=== PATIENT | male | born 1955 | race Caucasian/White ===

== ENCOUNTER 2017-03-22 16:21 | Emergency (ER) | payer SELFPAY ==
[~2017-03-22] VITALS: Ht 175.3 cm; Wt 136.1 kg
[~2017-03-22 16:21] MED LIST: AC500T PO; AML5T PO; ASP325T; ASP325T PO; CETI10TA20 PO; CYCL10TA9 PO; DICL75TA2 PO; DOCU-161 PO; FLUT1AER IH; GABA-488 PO; HYDR-3583 PO; LISI1TAB6 PO; LRT10T; LSRT50T; LVST20T PO; METF-380 PO; MILN25TA PO; MTF500T; OMEG-12 PO; OMEP40CA36 PO; OXYC-471 PO; PRAV80TA PO; PRAVASTATIN; RT-ALBUINH IH; SENN1TAB76 PO; SUCR1TAB36 PO; SULF1TAB38 PO; TIOT18CA2 IH; TRAM50TA2 PO; TRAZ150T42 PO; [UNRECOGNIZED DRUG - OTHER]; aleve; diclofenac
--- NOTE | 2017-03-22 17:34 | ED Abdominal Pain ---
General Chief Complaint: Abdominal/GI Problems Stated Complaint: STOMACH ISSUES Nursing Triage Note: AMB TO ROOM REPORTS HAS CHRONIC STOMACH ISSUES HAS ACID REFLUX. TODAY ALSO FEELING LIKE HE NEEDS TO HAVE BM DOES HAVE CONSTIPATION ISSUES. VOMITED X 1 TODAY. ALSO REPORTS NOT BEEN TAKING B/P MEDS LIKE HE IS SUPPOSE TO. Sepsis Screen: No Definite Risk Source of Information: Patient, Family Exam Limitations: No Limitations (ALAYNA LYMAN MD) History of Present Illness Time Seen By Provider: 17:29 Initial Comments This 61-year-old white male presents with a history of diffuse sharp abdominal pain that he has had for years. The patient has a history of diverticulosis on colonoscopy. Furthermore he has a history of peptic ulcer disease. The patient denies any fever, chills, localized severe abdominal pain, or remarkable radiation of the sharp abdominal pain which she describes primarily over the left side of the abdomen. The patient relates that he has had associated obstipation. He denies black, tarry, or bloody stools. The patient has had no hematemesis. The patient did have an episode of emesis this morning which is unusual for him. This precipitated his presentation to the emergency department at his 's insistence. Past medical history in addition to the acid disease and diverticulosis includes cholecystitis for which the patient underwent a cholecystectomy. (ALAYNA LYMAN MD) Allergies and Home Medications Allergies Coded Allergies: No Known Drug Allergies (Verified , 04/16/08) Home Medications Acetaminophen 500 Mg Tablet, 500-1,000 MG PO NEEDED, (Reported) FOR PAIN Albuterol Sulfate 18 Gm Hfa.aer.ad, 1-2 PUFF IH QID, (Reported) Amlodipine Besylate 5 Mg Tablet, 10 MG PO DAILY, (Reported) Aspirin 325 Mg Tab, 325 MG PO DAILY, (Reported) Cetirizine HCl 10 Mg Tablet, 10 MG PO DAILY, (Reported) Cyclobenzaprine Hcl 10 Mg Tablet, 1 EACH PO Q6H PRN, (Reported) FOR MUSCLE RELAX Diclofenac Sodium 75 Mg Tablet.dr, 75 MG PO BID, (Reported) Docusate Sodium 100 Mg Capsule, 100 MG PO BID, (Reported) Fluticasone/Vilanterol 1 Each Blst.w.dev, 1 EACH IH DAILY, (Reported) Hctz/Lisinopril 1 Each Tablet, 1 EACH PO DAILY, (Reported) Metformin Hcl 1,000 Mg Tablet, 1 EACH PO BID WITH MEALS, (Reported) Milnacipran HCl 25 Mg Tablet, 25 MG PO BID, (Reported) [place]-3/Dha/Epa/Fish Oil 1 Each Capsule.dr, 2 EACH PO DAILY, (Reported) Omeprazole 40 Mg Capsule.dr, 40 MG PO BID, (Reported) Pravastatin Sodium 80 Mg Tablet, 80 MG PO HS, (Reported) Sucralfate 1 Gm Tablet, 1 GM PO QID, #120 [facility]: [facility] 04/23[facility]16 1426 Tiotropium [place] 1 Inh Aerp, 2 INH IH DAILY, (Reported) Trazodone Hcl 150 Mg Tablet, 150 MG PO HS, (Reported) [Pravastatin] , (Reported) Review of Systems Constitutional: No chills, No fever EENTM: No Blurred Vision, No Ear Pain Respiratory: Denies Cough Cardiovascular: Denies Chest Pain Gastrointestinal: Denies Abdomen Distended, Abdominal Pain, Denies Blood Streaked Stools, Constipated, Denies Diarrhea, Denies Difficulty Swallowing, Nausea, Denies Rectal Bleeding, Vomiting Genitourinary: Denies Burning, Denies Discharge, Denies Frequency Musculoskeletal: No back pain, No joint swelling Skin: No change in color, No rash Psychiatric/Neurological: No Symptoms Reported Endocrine: No Symptoms Reported Hematologic/Lymphatic: No Symptoms Reported (ALAYNA LYMAN MD) Past Whubhpm-Liaoiq-Pvubel Hx Patient Social History Alcohol Use: Denies Use Recreational Drug Use: No Smoking Status: Never a Smoker Former Smoker/When Quit: Jan 09, 2000 Recent Foreign Travel: No Contact w/Someone Who Travel: No Recent Infectious Disease Expo: No Recent Hopitalizations: No (ALAYNA LYMAN MD) Immunizations Up To Date Date of Pneumonia Vaccine: March 11, 2016 (ALAYNA LYMAN MD) Seasonal Allergies Seasonal Allergies: Yes (ALAYNA LYMAN MD) Surgeries HX Surgeries: Yes (HERNIA) Surgeries: Abdominal, Gallbladder, Tonsillectomy (ALAYNA LYMAN MD) Respiratory Hx Respiratory Disorders: Yes ("TROUBLE WITH BREATHING"--NO DIAGNOSIS) (ALAYNA LYMAN MD) Cardiovascular Hx Cardiac Disorders: Yes Cardiac Disorders: High Cholesterol, Hypertension (ALAYNA LYMAN MD) Neurological Hx Neurological Disorders: No (ALAYNA LYMAN MD) Reproductive System Hx Reproductive Disorders: No (ALAYNA LYMAN MD) Genitourinary Hx Genitourinary Disorders: No (ALAYNA LYMAN MD) Gastrointestinal Hx Gastrointestinal Disorders: Yes Gastrointestinal Disorders: Abdominal Hernia, Irritable Bowel (ALAYNA LYMAN MD) Musculoskeletal Hx Musculoskeletal Disorders: Yes (RIGHT SCIATICA--WALKS WITH CANE) Musculoskeletal Disorders: Degenerate Disk Disease, Arthritis, Chronic Back Pain (ALAYNA LYMAN MD) Endocrine Hx Endocrine Disorders: Yes (OBESITY) Endocrine Disorders: Diabetes, Non-Insulin dep (ALAYNA LYMAN MD) HEENT HX ENT Disorders: No (ALAYNA LYMAN MD) Cancer Hx Cancer: No (ALAYNA LYMAN MD) Psychosocial Hx Psychiatric Problems: No (ALAYNA LYMAN MD) Integumentary HX Skin/Integumentary Disorder: No (ALAYNA LYMAN MD) Blood Transfusions Hx Blood Disorders: No (ALAYNA LYMAN MD) Reviewed Nursing Assessment Reviewed/Agree w Nursing PMH: Yes (ALAYNA LYMAN MD) Family Medical History Significant Family History: No Pertinent Family Hx (ALAYNA LYMAN MD) Physical Exam Vital Signs VS - Last 72 Hours, by Label 03/22/17 16:33 Temp 99.2 Pulse 83 Resp 18 B/P (MAP) 171/114 Pulse Ox 96 O2 Delivery Room Air (DAO,SHARIFA K DO) Vital Signs Capillary Refill : Less Than 3 Seconds (ALAYNA LYMAN MD) General Appearance: WD/WN, no apparent distress HEENT: normal ENT inspection Neck: normal inspection Respiratory: lungs clear, normal breath sounds, no respiratory distress Cardiovascular: normal peripheral pulses, regular rate, rhythm, no murmur Gastrointestinal: normal bowel sounds, non tender, soft, no organomegaly, no pulsatile mass Extremities: normal range of motion, non-tender, normal inspection Back: normal inspection Neurologic/Psychiatric: no motor/sensory deficits, alert, normal mood/affect, oriented x 3 Skin: normal color, warm/dry (ALAYNA LYMAN MD) Progress/Results/Core Measures Results/Orders Lab Results Laboratory Tests Test 03/22/17 17:35 03/22/17 17:48 Range/Units White Blood Count 6.8 4.3-11.0 10^3/uL Red Blood Count 5.10 4.35-5.85 10^6/uL Hemoglobin 14.2 13.3-17.7 G/DL Hematocrit 44 40-54 % Mean Corpuscular Volume 86 80-99 FL Mean Corpuscular Hemoglobin 28 25-34 PG Mean Corpuscular Hemoglobin Concent 33 32-36 G/DL Red Cell Distribution Width 12.3 10.0-14.5 % Platelet Count 321 130-400 10^3/uL Mean Platelet Volume 8.4 7.4-10.4 FL Neutrophils (%) (Auto) 55 42-75 % Lymphocytes (%) (Auto) 30 12-44 % Monocytes (%) (Auto) 9 0-12 % Eosinophils (%) (Auto) 6 0-10 % Basophils (%) (Auto) 1 0-10 % Neutrophils # (Auto) 3.8 1.8-7.8 X 10^3 Lymphocytes # (Auto) 2.1 1.0-4.0 X 10^3 Monocytes # (Auto) 0.6 0.0-1.0 X 10^3 Eosinophils # (Auto) 0.4 H 0.0-0.3 10^3/uL Basophils # (Auto) 0.0 0.0-0.1 10^3/uL Sodium Level 140 135-145 MMOL/L Potassium Level 3.8 3.6-5.0 MMOL/L Chloride Level 100 98-107 MMOL/L Carbon Dioxide Level 28 21-32 MMOL/L Anion Gap 12 5-14 MMOL/L Blood Urea Nitrogen 10 7-18 MG/DL Creatinine 0.88 0.60-1.30 MG/DL Estimat Glomerular Filtration Rate > 60 BUN/Creatinine Ratio 11 Glucose Level 135 H 70-105 MG/DL Calcium Level 9.6 8.5-10.1 MG/DL Total Bilirubin 0.4 0.1-1.0 MG/DL Aspartate Amino Transf (AST/SGOT) 31 5-34 U/L Alanine Aminotransferase (ALT/SGPT) 26 0-55 U/L Alkaline Phosphatase 67 40-136 U/L Total Protein 7.1 6.4-8.2 G/DL Albumin 4.1 3.2-4.5 G/DL Lipase 19 8-78 U/L Urine Color YELLOW Urine Clarity CLEAR Urine pH 7 5-9 Urine Specific [place] 1.010 L 1.016-1.022 Urine Protein NEGATIVE NEGATIVE Urine Glucose (UA) NEGATIVE NEGATIVE Urine Ketones NEGATIVE NEGATIVE Urine Nitrite NEGATIVE NEGATIVE Urine Bilirubin NEGATIVE NEGATIVE Urine Urobilinogen NORMAL NORMAL MG/DL Urine Leukocyte Esterase NEGATIVE NEGATIVE Urine RBC (Auto) NEGATIVE NEGATIVE Urine RBC NONE /HPF Urine WBC NONE /HPF Urine Squamous Epithelial Cells NONE /HPF Urine Crystals NONE /LPF Urine Bacteria NEGATIVE /HPF Urine Casts NONE /LPF Urine Mucus NEGATIVE /LPF Urine Culture Indicated NO (SHARIFA MOSER DO) Medications Given in ED Current Medications Medications Dose Ordered Sig/[place] Route Start Time Stop Time Status Last Admin Dose Admin Iohexol 100 ml ONCE ONCE IV 03/22/17 18:15 03/22/17 18:16 UNV 03/22/17 18:27 100 ML Sodium Chloride 100 ml ONCE ONCE IV 03/22/17 18:15 03/22/17 18:16 UNV 03/22/17 18:28 80 ML (SHARIFA MOSER DO) Vital Signs/I&O Vital Sign - Last 12Hours 03/22/17 16:33 Temp 99.2 Pulse 83 Resp 18 B/P (MAP) 171/114 Pulse Ox 96 O2 Delivery Room Air (SHARIFA MOSER DO) Blood Pressure Mean: 133 Progress Note : Time: 17:58 Progress Note My partner, Dr. Moser, was kind enough to accept the patient for further evaluation and care in the emergency department. We discussed the patient's presentation and his treatment plans. (ALAYNA LYMAN MD) Progress Note : Progress Note 9707--ASSUMED CARE FROM DR. LYMAN . ALL STUDIES PENDING. PT SITTING QUIETLY, DOES NOT APPEAR TO BE IN ANY DISCOMFORT OR DISTRESS. DISCUSSED TEST RESULTS WITH PT, AND IMPORTANCE OF FOLLOW UP WITH BOTH DR. LAWRENCE AND [facility] [place] OF [place] FINDINGS. 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 Referrals: MILAN MIRZA DO (PCP) Primary Care Physician NIKI AKINS APRN (Family) Primary Care Physician ANILA LAWRENCE DO Patient Instructions: Abdominal Wall Hernias, Acute Abdomen (Belly Pain), Adult (DC), Diverticulitis (DC), Irritable Bowel Syndrome (DC) Add. Discharge Instructions: CLEAR LIQUIDS--WATER, BROTH, JELLO, GATORADE--NO FOOD UNTIL YOU ARE RECHECKED AND CLEARED BY . FOLLOW UP WITH DR. LAWRENCE AND [facility] [place] 2-3 DAYS FOR FURTHER CARE RETURN TO ER IF WORSE All discharge instructions reviewed with patient and/or family. Voiced understanding. Scripts Ondansetron (Zofran Odt) 4 Mg Tab.rapdis 4 MG PO Q4H for Nausea/Vomiting, #10 TAB Prov: SHARIFA MOSER DO 03/22/17 Tramadol HCl (Ultram) 50 Mg Tablet 50 MG PO Q4H, #20 TAB Prov: SHARIFA MOSER DO 03/22/17 Lactobacillus Acidophilus (Acidophilus) 1 Each Capsule 2 EACH PO QID, #80 CAP Prov: SHARIFA MOSER DO 03/22/17 Metronidazole (Flagyl) 500 Mg Tablet 500 MG PO QID for FOR INFECTION, #40 TAB Prov: SHARIFA MOSER DO 03/22/17 Ciprofloxacin HCl (Cipro) 500 Mg Tablet 500 MG PO BID, #20 TAB Prov: SHARIFA MOSER DO 03/22/17 ALAYNA LYMAN MD March 22, 2017 17:34 SHARIFA MOSER DO March 22, 2017 18:42
[2017-03-22 17:42] LABS: BASOPHILS % (AUTO) 1 % (0-10); EOSINOPHILS # (AUTO) 0.4 10^3/uL (0.0-0.3); EOSINOPHILS % (AUTO) 6 % (0-10); LYMPHOCYTES # (AUTO) 2.1 X 10^3 (1.0-4.0); LYMPHOCYTES % (AUTO) 30 % (12-44); MEAN CORPUSCULAR HEMOGLOBIN 28 PG (25-34); MEAN CORPUSCULAR HGB CONC 33 G/DL (32-36); MEAN CORPUSCULAR VOLUME 86 FL (80-99); MEAN PLATELET VOLUME 8.4 FL (7.4-10.4); MONOCYTES # (AUTO) 0.6 X 10^3 (0.0-1.0); MONOCYTES % (AUTO) 9 % (0-12); NEUTROPHILS # (AUTO) 3.8 X 10^3 (1.8-7.8); NEUTROPHILS % (AUTO) 55 % (42-75); PLATELET COUNT 321 10^3/uL (130-400); RED CELL DISTRIBUTION WIDTH 12.3 % (10.0-14.5); WHITE BLOOD COUNT 6.8 10^3/uL (4.3-11.0)
[2017-03-22] MEDS ORDERED: NS IV 1000 ML 1,000 ML IV SCH (17:45)
[2017-03-22 17:58] LABS: BILIRUBIN,URINE NEGATIVE (NEGATIVE); KETONES,URINE NEGATIVE (NEGATIVE); LEUKOCYTE ESTERASE ,URINE NEGATIVE (NEGATIVE); NITRITE,URINE NEGATIVE (NEGATIVE); PH,URINE 7 (5-9); PROTEIN,URINE NEGATIVE (NEGATIVE); UROBILINOGEN,URINE NORMAL (NORMAL)
[2017-03-22 18:02] LABS: ALANINE AMINOTRANSFERASE 26 U/L (0-55); ALBUMIN 4.1 G/DL (3.2-4.5); ANION GAP 12 MMOL/L (5-14); ASPARTATE AMINO TRANSFERASE 31 U/L (5-34); BILIRUBIN,TOTAL 0.4 MG/DL (0.1-1.0); BLOOD UREA NITROGEN 10 MG/DL (7-18); BUN/CREATININE RATIO 11; CALCIUM 9.6 MG/DL (8.5-10.1); CARBON DIOXIDE 28 MMOL/L (21-32); CHLORIDE 100 MMOL/L (98-107); CREATININE SERUM 0.88 MG/DL (0.60-1.30); GFR ESTIMATED > 60; GLUCOSE 135 MG/DL (70-105); LIPASE 19 U/L (8-78); POTASSIUM 3.8 MMOL/L (3.6-5.0); SODIUM 140 MMOL/L (135-145); TOTAL PROTEIN 7.1 G/DL (6.4-8.2)
[2017-03-22] MEDS ORDERED: IOHEXOL 350 MG/ML 100 ML (OMNIPAQUE 350) VIAL IV ONE (18:15)
[2017-03-22] MEDS ORDERED: NS 100 ML (IVPB) BAG IV ONE (18:15)
--- NOTE | 2017-03-22 19:32 | Diagnostic Imaging Report ---
CLINICAL INDICATION: Patient with mid abdominal pain with on and off episodes of diarrhea times several years. EXAM: CT scan of the abdomen and pelvis performed with 100 cc of Omnipaque 350 IV contrast. Portal venous and delayed phase were obtained. Coronal reformatted images are created. COMPARISON: CT scan of the abdomen and pelvis performed with IV contrast dated 04/17/2008. FINDINGS: Visualized lung bases are clear. There are degenerative spurs and facet arthropathy of the visualized lower lumbar spine and lumbar spine. The gallbladder has been surgically resected in the interim. There is a 16 mm circumscribed enhancing structure in the left renal hilum which has increased in size compared to the prior study which is remeasured at 13 mm. The density of this structure is not significantly different than the adjacent aorta. This is concerning for a aneurysm of the splenic artery. There are other smaller nodular areas in the region which may represent splenules or lymph nodes. Otherwise, the liver, spleen, adrenal glands and both kidneys are unremarkable. There is no hydronephrosis or urinary tract stone. There is a 15 mm rounded enhancing structure involving the tail of the pancreas which was not as well visualized on the prior study. There is bowel wall thickening involving the sigmoid colon with multiple diverticula seen. There is prominence of the vascular structures in the region with only minimal subtle fat stranding. These findings may be related to colitis. Colon cancer may also be considered. Diverticulitis also cannot be completely excluded. Remainder of the colon is unremarkable. There is a development of a periumbilical hernia which is roughly 8.7 cm in greatest width with multiple loops of small bowel extending into the region. There is no evidence of associated structure nor fat stranding. Appendix is unremarkable. There is no intra-abdominal free air or free fluid. There is no significant lymphadenopathy. The extra-abdominal and extrapelvic soft tissue structures are otherwise unremarkable. The bladder is fluid distended with no gross abnormality as visualized. Prostate gland shows no significant abnormality. Phleboliths are seen in the pelvis. IMPRESSION: 1.: There is a short segment of sigmoid colon bowel wall thickening with prominence of the vasculature and mild fat stranding. This may represent colitis versus colon cancer. Diverticulitis also can't be completely excluded. There is no evidence of abscess or free air. 2: There is a broad-based umbilical hernia with multiple loops of small bowel within it. There is no associated intestinal obstruction, fluid or fat stranding. 3: There is concern for interval development of a 16 mm aneurysm in the left splenic hilum. 4: There is a 15 mm rounded enhancing structure near the tail of the pancreas which may represent a pancreatic neoplasm. Dedicated MRI of the pancreas with and without IV contrast in 6 months is suggested to better evaluate for stability. Dictated by: Dictated on workstation # [id number]
[2017-03-22] MEDS ORDERED: CIPR-225 PO (19:49)
[2017-03-22] MEDS ORDERED: LACT1CAP8 PO (19:49)
[2017-03-22] MEDS ORDERED: TRAM-42 PO (19:49)
[2017-03-22] MEDS ORDERED: METR500T PO (19:49)
[2017-03-22] MEDS ORDERED: RX-TRAMADOL 50 MG (ULTRAM) TAB PPK#4 PO STA (19:49)
[2017-03-22] MEDS ORDERED: ONDA4TAB8 PO (19:49)
[2017-03-22] MEDS ORDERED: RX-TRAMADOL 50 MG (ULTRAM) TAB PPK#4 PO ONE (19:54)
[2017-03-22] MEDS ORDERED: metroNIDAZOLE 500 MG (FLAGYL) TAB ONE (19:54)
[2017-03-22] MEDS ORDERED: CIPROFLOXACIN 500 MG (CIPRO) TABLET PO ONE (19:54)
[2017-03-22 19:59] VITALS: BP 146/96
[2017-03-22] MEDS ORDERED: metroNIDAZOLE 500 MG (FLAGYL) TAB PO ONE (20:00)
[2017-03-22] MEDS ORDERED: CIPROFLOXACIN 500 MG (CIPRO) TABLET PO SCH (20:00)
== END 2017-03-22 19:59 | disposition home or self-care (01) ==
LOC: EDUNIT# 16:21 → ER 16:25
DX: K63.89 Other specified diseases of intestine (principal); I72.8 Aneurysm of other specified arteries; K86.9 Disease of pancreas, unspecified; K42.9 Umbilical hernia without obstruction or gangrene; K57.30 Diverticulosis of large intestine without perforation or abscess without bleeding; I10 Essential (primary) hypertension; E11.9 Type 2 diabetes mellitus without complications; E66.9 Obesity, unspecified; Z79.82 Long term (current) use of aspirin; Z79.84 Long term (current) use of oral hypoglycemic drugs; Z79.899 Other long term (current) drug therapy; Z90.49 Acquired absence of other specified parts of digestive tract; Z87.11 Personal history of peptic ulcer disease
CPT/HCPCS: 36415; 74177; 80053; 81000; 83690; 85025; 96360; 96361

== ENCOUNTER → 2017-04-10 | Emergency (ER) | payer SELFPAY ==
[~2017-04-10] VITALS: Ht 175.3 cm; Wt 133.8 kg
[~2017-04-10] MED LIST changes: +CIPR-225 PO; +LACT1CAP8 PO; +METR500T PO; +NAPR500T3 PO; +ONDA4TAB8 PO; +TRAM-42 PO
--- NOTE | 2017-04-10 22:15 | ED Lower Extremity ---
General Chief Complaint: Trauma-Non Activation Stated Complaint: FALL INJURY TO RIGHT LEG Nursing Triage Note: pt ambulated to ed with cane. pt states he fell over his guitar case and fell onto both knees approx. 30 min ago. pt is concerned about it right knee/leg. pt states he did not hit his head. no loc. Nursing Sepsis Screen: No Definite Risk Source: patient History of Present Illness Time seen by provider: 21:55 Initial Comments PT ARRIVES VIA POV FROM HOME C/O INJURY TO LEFT LOWER LEG AND GREAT TOE STATES HE TRIPPED OVER A GUITAR CASE AND FELL FORWARD, LANDING ON HIS KNEES. WAS NOT WEARING SHOES AT THE TIME. OCCURRED AROUND 2029 TONIGHT NO PARESTHESIAS OR MOTOR DEFICITS NO OTHER INJURIES NO PRIOR INJURY TO THIS LEG, BUT HAS CHRONIC RIGHT LEG SCIATICA PAIN FROM CHRONIC LOWER BACK PAIN AND DISC PROBLEMS AT L4-L5 Location Injury Occurred: home PCP: CARMEN GANN Allergies and Home Medications Allergies Coded Allergies: No Known Drug Allergies (Verified , 04/16/08) Home Medications Acetaminophen 500 Mg Tablet, 500-1,000 MG PO NEEDED, (Reported) FOR PAIN Albuterol Sulfate 18 Gm Hfa.aer.ad, 1-2 PUFF IH QID, (Reported) Amlodipine Besylate 5 Mg Tablet, 10 MG PO DAILY, (Reported) Aspirin 325 Mg Tab, 325 MG PO DAILY, (Reported) Cetirizine HCl 10 Mg Tablet, 10 MG PO DAILY, (Reported) Ciprofloxacin HCl 500 Mg Tablet, 500 MG PO BID, #20 Prescribed by: SHARIFA DC on 03/22/171948 Cyclobenzaprine Hcl 10 Mg Tablet, 1 EACH PO Q6H PRN, (Reported) FOR MUSCLE RELAX Diclofenac Sodium 75 Mg Tablet.dr, 75 MG PO BID, (Reported) Docusate Sodium 100 Mg Capsule, 100 MG PO BID, (Reported) Fluticasone/Vilanterol 1 Each Blst.w.dev, 1 EACH IH DAILY, (Reported) Hctz/Lisinopril 1 Each Tablet, 1 EACH PO DAILY, (Reported) Lactobacillus Acidophilus 1 Each Capsule, 2 EACH PO QID, #80 Prescribed by: SHARIFA DC on 03/22/171948 Metformin Hcl 1,000 Mg Tablet, 1 EACH PO BID WITH MEALS, (Reported) Metronidazole 500 Mg Tablet, 500 MG PO QID, #40 Prescribed by: SHARIFA DC on 03/22/171948 Milnacipran HCl 25 Mg Tablet, 25 MG PO BID, (Reported) Naproxen 500 Mg Tablet, 500 MG PO BID, #20 Prescribed by: SHARIFA DC on 04/10/17 2241 [place]-3/Dha/Epa/Fish Oil 1 Each Capsule.dr, 2 EACH PO DAILY, (Reported) Omeprazole 40 Mg Capsule.dr, 40 MG PO BID, (Reported) Ondansetron 4 Mg Tab.rapdis, 4 MG PO Q4H, #10 Prescribed by: SHARIFA DC on 03/22/171948 Pravastatin Sodium 80 Mg Tablet, 80 MG PO HS, (Reported) Sucralfate 1 Gm Tablet, 1 GM PO QID, #120 Prescribed by: CLINT [facility] on 04/23/16 142 Tiotropium [place] 1 Inh Aerp, 2 INH IH DAILY, (Reported) Tramadol HCl 50 Mg Tablet, 50 MG PO Q4H, #20 Prescribed by: SHARIFA DC on 03/22/171948 Tramadol HCl 50 Mg Tablet, 50 MG PO Q4H, #20 Prescribed by: SHARIFA DC on 04/10/17 2241 Trazodone Hcl 150 Mg Tablet, 150 MG PO HS, (Reported) [Pravastatin] , (Reported) Constitutional: no symptoms reported Musculoskeletal: see HPI Skin: other (BRUISING) Psychiatric/Neurological: No Symptoms Reported Past Xwmbnbc-Ltlphe-Gxfbor Hx Patient Social History Alcohol Use: Occasionally Uses Recreational Drug Use: No Smoking Status: Former Smoker Former Smoker/When Quit: Jan 09, 2000 2nd Hand Smoke Exposure: No Recent Foreign Travel: No Contact w/Someone Who Travel: No Recent Infectious Disease Expo: No Recent Hopitalizations: No Immunizations Up To Date Date of Pneumonia Vaccine: March 11, 2016 Seasonal Allergies Seasonal Allergies: No Surgeries HX Surgeries: Yes (HERNIA) Surgeries: Abdominal, Gallbladder, Tonsillectomy Respiratory Hx Respiratory Disorders: Yes ("TROUBLE WITH BREATHING"--NO DIAGNOSIS) Cardiovascular Hx Cardiac Disorders: Yes Cardiac Disorders: High Cholesterol, Hypertension Neurological Hx Neurological Disorders: No Reproductive System Hx Reproductive Disorders: No Genitourinary Hx Genitourinary Disorders: No Gastrointestinal Hx Gastrointestinal Disorders: Yes Gastrointestinal Disorders: Abdominal Hernia, Irritable Bowel Musculoskeletal Hx Musculoskeletal Disorders: Yes (RIGHT SCIATICA--WALKS WITH CANE) Musculoskeletal Disorders: Degenerate Disk Disease, Arthritis, Chronic Back Pain Endocrine Hx Endocrine Disorders: Yes (OBESITY) Endocrine Disorders: Diabetes, Non-Insulin dep HEENT HX ENT Disorders: No Cancer Hx Cancer: No Psychosocial Hx Psychiatric Problems: No Integumentary HX Skin/Integumentary Disorder: No Blood Transfusions Hx Blood Disorders: No Physical Exam Vital Signs Vital Sign - Last 12Hours Capillary Refill : Less Than 3 Seconds General Appearance: WD/WN, no apparent distress, obese Hips: bilateral hip normal inspection Legs: right leg other (LEFT LOWER LEG WITH LARGE BRUISE AND TENDERNESS) Knees: bilateral knee normal inspection Ankles: bilateral ankle normal inspection Feet: right foot other (TENDERNESS, SLIGHT SWELLING AND BRUISING TO RIGHT GREAT TOE) Neurologic/Tendon: normal sensation, normal motor functions, normal tendon functions 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, no motor/sensory deficits, alert, normal mood/affect, oriented x 3 Skin: normal color, warm/dry, ecchymosis Splinting and Joint Reduction : Splints: Post Op Shoe Progress/Results/Core Measures Results/Orders My Orders Orders - DAOSHARIFA K DO Tibia/Fibula, Right, 2 Views (04/10/17 22:02) Foot, Right, 3 View (04/10/17 22:02) Post-Op Shoe (04/10/17 22:38) Rx-Naproxen (Rx-Naprosyn) (04/10/17 22:38) Rx-Tramadol Hcl (Rx-Ultram) (04/10/17 22:38) Vital Signs/I&O Vital Sign - Last 12Hours 04/10/17 04/10/17 21:17 21:17 Temp 98.1 98.1 Pulse 109 109 Resp 20 20 B/P (MAP) 125/86 (99) 125/86 Pulse Ox 94 94 O2 Delivery Room Air Room Air Blood Pressure Mean: 99 Diagnostic Imaging Comments XRAYS RIGHT TIB-FIB--NO ACUTE PROCESS XRAYS RIGHT FOOT--NO ACUTE PROCESS PENDING RADIOLOGIST REVIEW Reviewed: Reviewed by Me Departure Impression Impression: Primary Impression: Status post fall Additional Impressions: Contusion of right lower leg, initial encounter Sprain of right great toe Disposition: 01 HOME, SELF-CARE Condition: Stable Departure-Patient Inst. Referrals: MILAN MIRZA DO (PCP) Primary Care Physician NIKI AKINS APRN (Family) Primary Care Physician Patient Instructions: Contusion (DC), Preventing Falls in the Older Adult, Sprain (DC) Add. Discharge Instructions: ICE TO SORE AREAS AT 20 MINUTE INTERVALS WEAR POST OP SHOE NEEDED FOR COMFORT ELEVATE LEG MUCH POSSIBLE FOLLOW UP WITH [facility] IN 1 WEEK IF NO BETTER All discharge instructions reviewed with patient and/or family. Voiced understanding. Scripts Tramadol HCl (Ultram) 50 Mg Tablet 50 MG PO Q4H, #20 TAB Prov: SHARIFA DC DO 04/10/17 Naproxen (Naproxen) 500 Mg Tablet 500 MG PO BID, #20 TAB Prov: SHARIFA DC DO 04/10/17 Images Extremities-Lower 1 - Moderate, Contusion, Ecchymosis, Swelling, Tenderness 2 - Moderate, Contusion, Ecchymosis, Swelling, Tenderness SHARIFA DC DO Apr 10, 2017 22:15
[2017-04-10] MEDS: RX-TRAMADOL 50 MG (ULTRAM) TAB PPK#4 PO STA (22:52)
[2017-04-10] MEDS: RX-NAPROXEN (NAPROSYN) 250 MG TAB PPK#4 PO STA (22:52)
[2017-04-10 23:00] VITALS: BP 118/89
--- NOTE | 2017-04-11 07:20 | Diagnostic Imaging Report ---
Two views of the right tibia and fibula. INDICATION: Fall. FINDINGS: There is no fracture, dislocation or radiopaque foreign body. The proximal and distal joints appear grossly unremarkable. There is soft tissue swelling in the proximal aspect of the calf region anteriorly IMPRESSION: No fracture seen. Dictated by: Dictated on workstation # [id number]
--- NOTE | 2017-04-11 07:21 | Diagnostic Imaging Report ---
Three views of the right foot. INDICATION: Fall. FINDINGS: There is mild hallux valgus. No fracture or dislocation seen. No radiopaque foreign body. Calcaneal spurs are noted. IMPRESSION: No acute process. Dictated by: Dictated on workstation # [id number]
== END | disposition home or self-care (01) ==
LOC: EDUNIT# 21:03 → ER 21:05
DX: S80.11XA Contusion of right lower leg, initial encounter (principal); S93.501A Unspecified sprain of right great toe, initial encounter; I10 Essential (primary) hypertension; E11.9 Type 2 diabetes mellitus without complications; M51.36 Other intervertebral disc degeneration, lumbar region; E66.9 Obesity, unspecified; Z79.82 Long term (current) use of aspirin; Z79.84 Long term (current) use of oral hypoglycemic drugs; Z79.899 Other long term (current) drug therapy; W01.0XXA Fall on same level from slipping, tripping and stumbling without subsequent striking against object, initial encounter; Y92.009 Unspecified place in unspecified non-institutional (private) residence as the place of occurrence of the external cause; Y99.8 Other external cause status
CPT/HCPCS: 73590; 73630

== ENCOUNTER 2017-05-01 06:29 | Outpatient (CLI) | payer OTHER ==
[2017-05-01] MEDS ORDERED: PRAV40TA2 PO (15:22)
[2017-05-01] MEDS ORDERED: TIOT4MIS2 IH (15:22)
[2017-05-01] MEDS ORDERED: AMLO10TA4 PO (15:22)
[2017-05-01] MEDS ORDERED: LISI10TA2 PO (15:22)
[2017-05-01] MEDS ORDERED: HYDR12.56 PO (15:22)
[2017-05-01] MEDS ORDERED: MILN100T PO (15:22)
[2017-05-01] MEDS ORDERED: GABA600T2 PO (15:22)
[2017-05-01] MEDS ORDERED: ESOM20CA PO (15:22)
[2017-05-01] MEDS ORDERED: SUCR1TAB36 PO (15:22)
[2017-05-01] MEDS ORDERED: FLUT1AER IH (15:22)
== END 2017-05-01 15:27 ==
DX: Z01.818 Encounter for other preprocedural examination (principal); K21.9 Gastro-esophageal reflux disease without esophagitis; Z83.79 Family history of other diseases of the digestive system

== ENCOUNTER 2017-05-06 13:15 | Day surgery (SDC) | payer OTHER ==
[~2017-05-06] VITALS: Ht 175.3 cm; Wt 127.0 kg
[~2017-05-06 13:15] MED LIST changes: +AMLO10TA4 PO; +ESOM20CA PO; +GABA600T2 PO; +HYDR12.56 PO; +LISI10TA2 PO; +MILN100T PO; +PRAV40TA2 PO; +TIOT4MIS2 IH
[2017-05-06 13:20] VITALS: BP 106/88
--- OUTSIDE RECORDS SUMMARY | 2017-05-06 13:20 | XMS REPORT | Continuity of Care Document ---
Author Author [facility] Organization [facility] Address Unknown Phone Unavailable Allergies Active Description Code Type Severity Reaction Onset Reported/Identified Relationship to Patient Clinical Status Yes No Known Drug Allergies [id number] Drug Allergy Mild N/A 04/16/2008 Yes No Known Drug Allergies [id number] Drug Allergy Unknown N/ A 05/01/2017 Medications Problems Date Dx Coded Attending Type Code Diagnosis Diagnosed By 01/28/2015 SANFORD BOLAND MD Ot 721.2 01/28/2015 SANFORD BOLAND MD Ot 721.3 01/28/2015 MARK DC DOA K Ot 845.00 SPRAIN OF ANKLE NOS 01/28/2015 MARK DC DOA K Ot 924.10 CONTUSION OF LOWER LEG 01/28/2015 MARK DC DOA K Ot 959.7 LOWER LEG INJURY NOS 01/28/2015 DAO MICHAELS SHARIFA K Ot E000.8 OTHER EXTERNAL CAUSE STATUS 01/28/2015 MARK DC DOA K Ot E849.0 ACCIDENT IN HOME 01/28/2015 MARK DC DOA K Ot E880.9 FALL ON STAIR/STEP NEC 08/22/2015 DORI ANAYA MD Ot E11.9 TYPE 2 DIABETES MELLITUS WITHOUT COMPLIC 08/22/2015 DORI ANAYA MD Ot E78.0 PURE HYPERCHOLESTEROLEMIA 08/22/2015 DORI ANAYA MD Ot I10 ESSENTIAL (PRIMARY) HYPERTENSION 08/22/2015 DORI ANAYA MD Ot R07.89 OTHER CHEST PAIN 08/22/2015 DORI ANAYA MD Ot R07.9 CHEST PAIN, UNSPECIFIED 08/22/2015 DORI ANAYA MD Ot R91.1 SOLITARY PULMONARY NODULE 08/22/2015 DORI ANAYA MD Ot Z79.899 OTHER CARDIOVASCULAR SPECIALIST (CURRENT) DRUG THERAPY 09/14/2015 SANFORD BOLAND MD Ot E11.9 09/14/2015 KYA MUNIZ, SANFORD L Ot E11.9 09/15/2015 RAYA MUNIZ FACC, ALI FACP CCDS Ot E11.9 09/15/2015 RAYA MUNIZ FAC, ALI FACP CCDS Ot E66.01 09/15/2015 RAYA MUNIZ FACC, ALI FACP CCDS Ot E78.4 09/15/2015 RAYA MUNIZ FACC, ALI FACP CCDS Ot I10 09/15/2015 RAYA MUNIZ FACC, ALI FACP CCDS Ot R06.09 09/15/2015 RAYA MUNIZ FACC, ALI FACP CCDS Ot R07.89 09/15/2015 RAYA MUNIZ FAC, ALI FACP CCDS Ot E11.9 09/15/2015 RAYA MUNIZ FAC, ALI FACP CCDS Ot E66.01 09/15/2015 RAYA MUNIZ FAC, ALI FACP CCDS Ot E78.4 09/15/2015 RAYA MUNIZ FAC, ALI FACP CCDS Ot I10 09/15/2015 RAYA MUNIZ [facility], ALI FACP CCDS Ot R06.09 09/15/2015 RAYA MUNIZ [facility], ALI FACP CCDS Ot R07.89 09/15/2015 KYA MUNIZ, SANFORD L Ot E11.9 11/22/2015 KYA MUNIZ, SANFORD L Ot E11.9 11/22/2015 KYA MUNIZ, SANFORD L Ot E11.9 11/22/2015 RAYA TY, ALI FACP CCDS Ot E11.9 11/22/2015 RAYA MUNIZ FACC, ALI FACP CCDS Ot E66.01 11/22/2015 RAYA TY, ALI FACP CCDS Ot E78.4 11/22/2015 RAYA MUNIZ FAC, ALI FACP CCDS Ot I10 11/22/2015 RAYA MUNIZ FAC, ALI FACP CCDS Ot R06.09 11/22/2015 RAYA TY, ALI FACP CCDS Ot R07.89 11/22/2015 RAYA MUNIZ FAC, ALI FACP CCDS Ot E11.9 11/22/2015 RAYA TYC, ALI FACP CCDS Ot E66.01 11/22/2015 RAYA MUNIZ FAC, ALI FACP CCDS Ot E78.4 11/22/2015 RAYA MUNIZ FACC, ALI FACP CCDS Ot I10 11/22/2015 RAYA MUNIZ FACC, ALI FACP CCDS Ot R06.09 11/22/2015 RAYA MUNIZ FACC, ALI FACP CCDS Ot R07.89 11/28/2015 JOSIE GURROLA APRN Ot G47.33 OBSTRUCTIVE SLEEP APNEA (ADULT) ( PEDIATR 11/28/2015 JOSIE GURROLA APRN Ot I10 ESSENTIAL (PRIMARY) HYPERTENSION 12/01/2015 SANFORD BOLAND MD Ot E11.9 12/01/2015 RAYA MUNIZ FAC, ALI FACP CCDS Ot E11.9 12/01/2015 RAYA MUNIZ FACC, ALI FACP CCDS Ot E66.01 12/01/2015 RAYA MUNIZ FACC, ALI FACP CCDS Ot E78.4 12/01/2015 RAYA MUNIZ FACC, ALI FACP CCDS Ot I10 12/01/2015 RAYA MUNIZ FACC, ALI FACP CCDS Ot R06.09 12/01/2015 RAYA TYC, ALI FACP CCDS Ot R07.89 12/01/2015 RAYA TY, ALI FACP CCDS Ot E11.9 12/01/2015 RAYA MUNIZ FACC, ALI FACP CCDS Ot E66.01 12/01/2015 RAYA TY, ALI FACP CCDS Ot E78.4 12/01/2015 RAYA MUNIZ FACC, ALI FACP CCDS Ot I10 12/01/2015 RAYA MUNIZ FACC, ALI FACP CCDS Ot R06.09 12/01/2015 RAYA MUNIZ FACC, ALI FACP CCDS Ot R07.89 12/01/2015 RAYA MUNIZ FACC, ALI FACP CCDS Ot E11.9 12/01/2015 RAYA MUNIZ FACC, ALI FACP CCDS Ot E66.01 12/01/2015 RAYA MUNIZ FACC, ALI FACP CCDS Ot E78.4 12/01/2015 RAYA TYC, ALI FACP CCDS Ot I10 12/01/2015 RAYA TYC, ALI FACP CCDS Ot R06.09 12/01/2015 RAYA TYC, ALI FACP CCDS Ot R07.89 12/01/2015 SANFORD BOLAND MD Ot E11.9 12/05/2015 KYA MUNIZ, SANFORD L Ot E11.9 12/05/2015 RAYA MUNIZ FAC, ALI FACP CCDS Ot E11.9 12/05/2015 RAYA MUNIZ FAC, ALI FACP CCDS Ot E66.01 12/05/2015 RAYA MUNIZ FAC, ALI FACP CCDS Ot E78.4 12/05/2015 RAYA MUNIZ FAC, ALI FACP CCDS Ot I10 12/05/2015 RAYA MUNIZ FAC, ALI FACP CCDS Ot R06.09 12/05/2015 RAYA MUNIZ FAC, ALI FACP CCDS Ot R07.89 12/05/2015 RAYA MUNIZ [facility], ALI FACP CCDS Ot E11.9 12/05/2015 RAYA MUNIZ [facility], ALI FACP CCDS Ot E66.01 12/05/2015 RAYA MUNIZ [facility], ALI FACP CCDS Ot E78.4 12/05/2015 RAYA MUNIZ [facility], ALI FACP CCDS Ot I10 12/05/2015 RAYA MUNIZ [facility], ALI FACP CCDS Ot R06.09 12/05/2015 RAYA MUNIZ [facility], ALI FACP CCDS Ot R07.89 12/05/2015 JOSIE GURROLA PATIENT ACCOUNT LIAISON Ot G47.19 12/05/2015 JOSIE GURROLA E PATIENT ACCOUNT LIAISON Ot R06.09 12/05/2015 IZABELA JOSIE E PATIENT ACCOUNT LIAISON Ot R06.83 12/11/2015 IZABELA JOSIE E PATIENT ACCOUNT LIAISON Ot G47.19 12/11/2015 NADIR GURROLAINE E PATIENT ACCOUNT LIAISON Ot R06.09 12/11/2015 JOSIE GURROLA E PATIENT ACCOUNT LIAISON Ot R06.83 12/27/2015 KYA MUNIZ, SANFORD L Ot E11.9 12/27/2015 RAYA MUNIZ [facility], ALI FACP CCDS Ot E11.9 12/27/2015 RAYA MUNIZ [facility], ALI FACP CCDS Ot E66.01 12/27/2015 RAYA MUNIZ [facility], ALI FACP CCDS Ot E78.4 12/27/2015 RAYA MUNIZ FAC, ALI FACP CCDS Ot I10 12/27/2015 RAYA MUNIZ [facility], ALI FACP CCDS Ot R06.09 12/27/2015 RAYA MUNIZ FACC, ALI FACP CCDS Ot R07.89 12/27/2015 RAYA MUNIZ FACC, ALI FACP CCDS Ot E11.9 12/27/2015 RAYA MUNIZ FACC, ALI FACP CCDS Ot E66.01 12/27/2015 RAYA TYC, ALI FACP CCDS Ot E78.4 12/27/2015 RAYA TYC, ALI FACP CCDS Ot I10 12/27/2015 RAYA MUNIZ FACC, ALI FACP CCDS Ot R06.09 12/27/2015 RAYA MUNIZ FACC, ALI FACP CCDS Ot R07.89 01/15/2016 JOSIE GURROLA PATIENT ACCOUNT LIAISON Ot G47.19 01/15/2016 JOSIE GURROLA PATIENT ACCOUNT LIAISON Ot R06.09 01/15/2016 JOSIE GURROLA PATIENT ACCOUNT LIAISON Ot R06.83 01/16/2016 JOSIE GURROLA APRN Ot G47.33 OBSTRUCTIVE SLEEP APNEA (ADULT) ( PEDIATR 01/16/2016 JOSIE GURROLA PATIENT ACCOUNT LIAISON Ot I10 ESSENTIAL (PRIMARY) HYPERTENSION 01/19/2016 KYA MUNIZ, SANFORD Ho Ot E11.9 01/19/2016 KYA MUNIZ, SANFORD Ho Ot E11.9 01/19/2016 RAYA MUNIZ FACC, ELISABETH FACP CCDS Ot E11.9 01/19/2016 RAYA MUNIZ FACC, ALI FACP CCDS Ot E66.01 01/19/2016 RAYA MUNIZ FACC, ALI FACP CCDS Ot E78.4 01/19/2016 RAYA MUNIZ FACC, ALI FACP CCDS Ot I10 01/19/2016 RAYA MUNIZ FACC, ALI FACP CCDS Ot R06.09 01/19/2016 RAYA MUNIZ FACC, ALI FACP CCDS Ot R07.89 01/19/2016 RAYA MUNIZ FACC, ALI FACP CCDS Ot E11.9 01/19/2016 RAYA MUNIZ FACC, ALI FACP CCDS Ot E66.01 01/19/2016 RAYA MUNIZ FACC, ALI FACP CCDS Ot E78.4 01/19/2016 RAYA TYC, ALI FACP CCDS Ot I10 01/19/2016 RAYA MUNIZ FACC, ALI FACP CCDS Ot R06.09 01/19/2016 RAYA MUNIZ FACC, ELISABETH TYP CCDS Ot R07.89 01/19/2016 IZABELA, JOSIE E PATIENT ACCOUNT LIAISON Ot G47.19 01/19/2016 IZABELA, JOSIE E PATIENT ACCOUNT LIAISON Ot R06.09 01/19/2016 IZABELA, JOSIE E PATIENT ACCOUNT LIAISON Ot R06.83 01/23/2016 ALEXIS HOOVER MD ([facility]) Ot J44.9 01/23/2016 ALEXIS HOOVER MD ([facility]) Ot Z02.71 02/03/2016 IZABELA, JOSIE E PATIENT ACCOUNT LIAISON Ot G47.33 02/03/2016 IZABELA, JOSIE E PATIENT ACCOUNT LIAISON Ot I10 03/04/2016 IZABELA, JOSIE E PATIENT ACCOUNT LIAISON Ot G47.19 OTHER HYPERSOMNIA 03/04/2016 IZABELA, JOSIE E PATIENT ACCOUNT LIAISON Ot R06.09 OTHER FORMS OF DYSPNEA 03/04/2016 IZABELA, JOSIE E PATIENT ACCOUNT LIAISON Ot R06.83 SNORING 03/04/2016 IZABELA, JOSIE E PATIENT ACCOUNT LIAISON Ot F17.201 NICOTINE DEPENDENCE, UNSPECIFIED, IN REM 03/04/2016 IZABELA, JOSIE E PATIENT ACCOUNT LIAISON Ot J44.9 CHRONIC OBSTRUCTIVE PULMONARY DISEASE , U 03/04/2016 IZABELA, JOSIE E PATIENT ACCOUNT LIAISON Ot J45.909 UNSPECIFIED ASTHMA, UNCOMPLICATED 04/15/2016 IZABELA, JOSIE E PATIENT ACCOUNT LIAISON Ot G47.19 OTHER HYPERSOMNIA 04/15/2016 IZABELA, JOSIE E PATIENT ACCOUNT LIAISON Ot R06.09 OTHER FORMS OF DYSPNEA 04/15/2016 IZABELA, JOSIE E PATIENT ACCOUNT LIAISON Ot R06.83 SNORING 04/15/2016 IZABELA, JOSIE E PATIENT ACCOUNT LIAISON Ot F17.201 NICOTINE DEPENDENCE, UNSPECIFIED, IN REM 04/15/2016 IZABELA, JOSIE E PATIENT ACCOUNT LIAISON Ot J44.9 CHRONIC OBSTRUCTIVE PULMONARY DISEASE , U 04/15/2016 IZABELA, JOSIE E PATIENT ACCOUNT LIAISON Ot J45.909 UNSPECIFIED ASTHMA, UNCOMPLICATED 04/16/2016 IZABELA, JOSIE E PATIENT ACCOUNT LIAISON Ot G47.19 OTHER HYPERSOMNIA 04/16/2016 IZABELA, JOSIE E PATIENT ACCOUNT LIAISON Ot R06.09 OTHER FORMS OF DYSPNEA 04/16/2016 IZABELA, JOSIE E PATIENT ACCOUNT LIAISON Ot R06.83 SNORING 04/16/2016 IZABELA, JOSIE E PATIENT ACCOUNT LIAISON Ot F17.201 NICOTINE DEPENDENCE, UNSPECIFIED, IN REM 04/16/2016 JOSIE GURROLA APRN Ot J44.9 CHRONIC OBSTRUCTIVE PULMONARY DISEASE , U 04/16/2016 JOSIE GURROLA APRN Ot J45.909 UNSPECIFIED ASTHMA, UNCOMPLICATED 04/18/2016 NIKI AKINS APRN Ot M54.41 LUMBAGO WITH SCIATICA, RIGHT SIDE 04/18/2016 NIKI AKINS APRN Ot M54.42 LUMBAGO WITH SCIATICA, LEFT SIDE 04/18/2016 NIKI AKINS APRN Ot M54.6 PAIN IN THORACIC SPINE 04/19/2016 ANILA LAWRENCE DO Ot R07.9 CHEST PAIN, UNSPECIFIED 04/19/2016 ANILA LAWRENCE DO Ot Z01.818 ENCOUNTER FOR OTHER PREPROCEDURAL EXAMIN 04/19/2016 ANILA LAWRENCE DO Ot Z86.010 PERSONAL HISTORY OF COLONIC POLYPS 04/23/2016 ANILA LAWRENCE DO Ot 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 04/23/2016 ANILA LAWRENCE DO Ot K20.9 ESOPHAGITIS, UNSPECIFIED 04/23/2016 ANILA LAWRENCE DO Ot K57.30 DVRTCLOS OF LG INT W/O PERFORATION OR AB 04/23/2016 ANILA LAWRENCE DO Ot K58.9 IRRITABLE BOWEL SYNDROME WITHOUT DIARRHE 04/23/2016 ANILA LAWRENCE DO Ot Z12.11 ENCOUNTER FOR SCREENING FOR MALIGNANT NE 04/23/2016 ANILA LAWRENCE DO Ot Z86.010 PERSONAL HISTORY OF COLONIC POLYPS 05/06/2016 NIKI AKINS APRN Ot M54.41 LUMBAGO WITH SCIATICA, RIGHT SIDE 05/06/2016 NIKI AKINS APRN Ot M54.42 LUMBAGO WITH SCIATICA, LEFT SIDE 05/06/2016 NIKI AKINS APRN Ot M54.6 PAIN IN THORACIC SPINE 03/22/2017 KYA MUNIZ, SANFORD Ho Ot E11.9 TYPE 2 DIABETES MELLITUS WITHOUT COMPLIC 03/22/2017 SANFORD BOLAND MD Ot E11.9 TYPE 2 DIABETES MELLITUS WITHOUT COMPLIC 03/22/2017 RAYA MUNIZ FAC, ELISABETH [place] CCDS Ot E11.9 TYPE 2 DIABETES MELLITUS WITHOUT COMPLIC 03/22/2017 RAYA MUNIZ [facility], ALI FACP CCDS Ot E66.01 MORBID (SEVERE) OBESITY DUE TO EXCESS CA 03/22/2017 RAYA MD FACC, ALI FACP CCDS Ot E78.4 OTHER HYPERLIPIDEMIA 03/22/2017 RAYA MD FACC, ALI FACP CCDS Ot I10 ESSENTIAL (PRIMARY) HYPERTENSION 03/22/2017 RAYA MD FACC, ALI FACP CCDS Ot R06.09 OTHER FORMS OF DYSPNEA 03/22/2017 RAYA MD FACC, ALI FACP CCDS Ot R07.89 OTHER CHEST PAIN 03/22/2017 RAYA MD FAC, ALI FACP CCDS Ot E11.9 TYPE 2 DIABETES MELLITUS WITHOUT COMPLIC 03/22/2017 RAYA MD FACC, ALI FACP CCDS Ot E66.01 MORBID (SEVERE) OBESITY DUE TO EXCESS CA 03/22/2017 RAYA MUNIZ FACC, ALI FACP CCDS Ot E78.4 OTHER HYPERLIPIDEMIA 03/22/2017 RAYA MUNIZ FAC, ALI FACP CCDS Ot I10 ESSENTIAL (PRIMARY) HYPERTENSION 03/22/2017 RAYA MUNIZ [facility], ALI FACP CCDS Ot R06.09 OTHER FORMS OF DYSPNEA 03/22/2017 RAYA MUNIZ [facility], ALI FACP CCDS Ot R07.89 OTHER CHEST PAIN 03/22/2017 JOSIE GURROLA APRN Ot G47.19 OTHER HYPERSOMNIA 03/22/2017 JOSIE GURROLA PATIENT ACCOUNT LIAISON Ot R06.09 OTHER FORMS OF DYSPNEA 03/22/2017 JOSIE GURROLA PATIENT ACCOUNT LIAISON Ot R06.83 SNORING 03/22/2017 ALEXIS HOOVER MD ([facility]) Ot J44.9 CHRONIC OBSTRUCTIVE PULMONARY DISEASE, U 03/22/2017 ALEXIS HOOVER MD ([facility]) Ot Z02.71 ENCOUNTER FOR DISABILITY DETERMINATION 03/22/2017 NIKI AKINS PATIENT ACCOUNT LIAISON Ot M54.41 LUMBAGO WITH SCIATICA, RIGHT SIDE 03/22/2017 NIKI AKINS PATIENT ACCOUNT LIAISON Ot M54.42 LUMBAGO WITH SCIATICA, LEFT SIDE 03/22/2017 NIKI AKINS PATIENT ACCOUNT LIAISON Ot M54.6 PAIN IN THORACIC SPINE 03/22/2017 NIKI AKINS PATIENT ACCOUNT LIAISON Ot M54.41 LUMBAGO WITH SCIATICA, RIGHT SIDE 03/22/2017 SHARIFA DC DO Ot E11.9 TYPE 2 DIABETES MELLITUS WITHOUT COMPLIC 03/22/2017 SHARIFA DC DO Ot E66.9 OBESITY, UNSPECIFIED 03/22/2017 SHARIFA DC DO Ot I10 ESSENTIAL (PRIMARY) HYPERTENSION 03/22/2017 SHARIFA DC DO Ot 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 03/22/2017 DAO MICHAELS SHARIFA Sharp Ot K21.9 GASTRO-ESOPHAGEAL REFLUX DISEASE WITHOUT 03/22/2017 DAO MICHAELS SHARIFA Sharp Ot K42.9 UMBILICAL HERNIA WITHOUT OBSTRUCTION OR 03/22/2017 DAO MICHAELS SHARIFA Sharp Ot K57.30 DVRTCLOS OF LG INT W/O PERFORATION OR AB 03/22/2017 DAO MICHAELS SHARIFA Sharp Ot K63.89 OTHER SPECIFIED DISEASES OF INTESTINE 03/22/2017 DAO MICHAELS SHARIFA Sharp Ot K86.9 DISEASE OF PANCREAS, UNSPECIFIED 03/22/2017 DAO MICHAELS SHARIFA Sahrp Ot Z79.82 CARDIOVASCULAR SPECIALIST (CURRENT) USE OF ASPIRIN 03/22/2017 DAO MICHAELS SHARIFA Sharp Ot Z79.84 CARDIOVASCULAR SPECIALIST (CURRENT) USE OF ORAL HYPOGLYC 03/22/2017 DAO MICHAELS SHARIFA Sharp Ot Z79.899 OTHER CARDIOVASCULAR SPECIALIST (CURRENT) DRUG THERAPY 03/22/2017 DAO MICHAELS SHARIFA Sharp Ot Z87.11 PERSONAL HISTORY OF PEPTIC ULCER DISEASE 03/22/2017 DAO MICHAELS SHARIFA Sharp Ot Z90.49 ACQUIRED ABSENCE OF OTHER SPECIFIED PART 03/22/2017 SANFORD BOLAND MD Ot E11.9 TYPE 2 DIABETES MELLITUS WITHOUT COMPLIC 03/22/2017 SANFORD BOLAND MD, Ot E11.9 TYPE 2 DIABETES MELLITUS WITHOUT COMPLIC 03/22/2017 RAYA MUNIZ FACC, ELISABETH TYP CCDS Ot E11.9 TYPE 2 DIABETES MELLITUS WITHOUT COMPLIC 03/22/2017 RAYA MUNIZ FACC, ELISABETH FACP CCDS Ot E66.01 MORBID (SEVERE) OBESITY DUE TO EXCESS CA 03/22/2017 RAYA MUNIZ FACC, ELISABETH FACP CCDS Ot E78.4 OTHER HYPERLIPIDEMIA 03/22/2017 RAYA MUNIZ FACC, ALI FACP CCDS Ot I10 ESSENTIAL (PRIMARY) HYPERTENSION 03/22/2017 RAYA MUNIZ FACC, ELISABETH FACP CCDS Ot R06.09 OTHER FORMS OF DYSPNEA 03/22/2017 RAYA MUNIZ FACC, [facility] FACP CCDS Ot R07.89 OTHER CHEST PAIN 03/22/2017 RAYA MUNIZ FACC, ALI FACP CCDS Ot E11.9 TYPE 2 DIABETES MELLITUS WITHOUT COMPLIC 03/22/2017 RAYA MUNIZ FACC, ALI FACP CCDS Ot E66.01 MORBID (SEVERE) OBESITY DUE TO EXCESS CA 03/22/2017 RAYA MUNIZ FACC, ALI FACP CCDS Ot E78.4 OTHER HYPERLIPIDEMIA 03/22/2017 RAYA TY, ALI FACP CCDS Ot I10 ESSENTIAL (PRIMARY) HYPERTENSION 03/22/2017 RAYA MUNIZ [facility], ALI FACP CCDS Ot R06.09 OTHER FORMS OF DYSPNEA 03/22/2017 RAYA MUNIZ FACC, ALI FACP CCDS Ot R07.89 OTHER CHEST PAIN 03/22/2017 JOSIE GURROLA APRN Ot G47.19 OTHER HYPERSOMNIA 03/22/2017 JOSIE GURROLA APRN Ot R06.09 OTHER FORMS OF DYSPNEA 03/22/2017 JOSIE GURROLA APRN Ot R06.83 SNORING 03/22/2017 ALEXIS HOOVER MD ([facility]) Ot J44.9 CHRONIC OBSTRUCTIVE PULMONARY DISEASE, U 03/22/2017 ALEXIS HOOVER MD ([facility]) Ot Z02.71 ENCOUNTER FOR DISABILITY DETERMINATION 03/22/2017 NIKI AKINS PATIENT ACCOUNT LIAISON Ot M54.41 LUMBAGO WITH SCIATICA, RIGHT SIDE 03/22/2017 NIKI AKINS PATIENT ACCOUNT LIAISON Ot M54.42 LUMBAGO WITH SCIATICA, LEFT SIDE 03/22/2017 NIKI AKINS PATIENT ACCOUNT LIAISON Ot M54.6 PAIN IN THORACIC SPINE 03/22/2017 NIKI AKINS PATIENT ACCOUNT LIAISON Ot M54.41 LUMBAGO WITH SCIATICA, RIGHT SIDE 03/24/2017 DAO DO SHARIFA K Ot E11.9 TYPE 2 DIABETES MELLITUS WITHOUT COMPLIC 03/24/2017 DAOPaty MICHAELS SHARIFA K Ot E66.9 OBESITY, UNSPECIFIED 03/24/2017 DAO DO SHARIFA K Ot I10 ESSENTIAL (PRIMARY) HYPERTENSION 03/24/2017 DAO DO SHARIFA K Ot 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 03/24/2017 DAO DO SHARIFA K Ot K21.9 GASTRO-ESOPHAGEAL REFLUX DISEASE WITHOUT 03/24/2017 DAO SHARIFA MICHAELS Ot K42.9 UMBILICAL HERNIA WITHOUT OBSTRUCTION OR 03/24/2017 DAO SHARIFA MICHAELS Ot K57.30 DVRTCLOS OF LG INT W/O PERFORATION OR AB 03/24/2017 SHARIFA DC DO Ot K63.89 OTHER SPECIFIED DISEASES OF INTESTINE 03/24/2017 SHARIFA DC DO Ot K86.9 DISEASE OF PANCREAS, UNSPECIFIED 03/24/2017 DAO SHARIFA MICHAELS Ot Z79.82 CORRECTION (CURRENT) USE OF ASPIRIN 03/24/2017 DAO SHARIFA MICHAELS Ot Z79.84 CARDIOVASCULAR SPECIALIST (CURRENT) USE OF ORAL HYPOGLYC 03/24/2017 DAO SHARIFA MICHAELS Ot Z79.899 OTHER CARDIOVASCULAR SPECIALIST (CURRENT) DRUG THERAPY 03/24/2017 DAO SHARIFA MICHAELS Ot Z87.11 PERSONAL HISTORY OF PEPTIC ULCER DISEASE 03/24/2017 SHARIFA DC DO Ot Z90.49 ACQUIRED ABSENCE OF OTHER SPECIFIED PART 04/10/2017 SHARIFA DC DO Ot E11.9 TYPE 2 DIABETES MELLITUS WITHOUT COMPLIC 04/10/2017 SHARIFA DC DO Ot E66.9 OBESITY, UNSPECIFIED 04/10/2017 SHARIFA DC DO Ot I10 ESSENTIAL (PRIMARY) HYPERTENSION 04/10/2017 SHARIFA DC DO Ot M51.36 OTHER INTERVERTEBRAL DISC DEGENERATION, 04/10/2017 SHARIFA DC DO Ot S80.11XA CONTUSION OF RIGHT LOWER LEG, INITIAL EN 04/10/2017 SHARIFA DC DO Ot S93.501A UNSPECIFIED SPRAIN OF RIGHT GREAT TOE, I 04/10/2017 SHARIFA DC DO Ot S99.921A UNSPECIFIED INJURY OF RIGHT FOOT, INITIA 04/10/2017 SHARIFA DC DO Ot W01.0XXA FALL SAME LEV FROM SLIP/TRIP W/O STRIKE 04/10/2017 SHARIFA DC DO Ot Y92.[address] [facility] [address] [facility] (PRIVATE 04/10/2017 SHARIFA DC DO Ot Y99.8 OTHER EXTERNAL CAUSE STATUS 04/10/2017 SHARIFA DC DO, Ot Z79.82 CARDIOVASCULAR SPECIALIST (CURRENT) USE OF ASPIRIN 04/10/2017 SHARIFA DC DO Ot Z79.84 CORRECTION (CURRENT) USE OF ORAL HYPOGLYC 04/10/2017 SHARIFA DC DO Ot Z79.899 OTHER CORRECTION (CURRENT) DRUG THERAPY 04/10/2017 KYA MUNIZ, SANFORD Ho Ot E11.9 TYPE 2 DIABETES MELLITUS WITHOUT COMPLIC 04/10/2017 SANFORD BOLAND MD Ot E11.9 TYPE 2 DIABETES MELLITUS WITHOUT COMPLIC 04/10/2017 RAYA MUNIZ FAC, ALI FACP CCDS Ot E11.9 TYPE 2 DIABETES MELLITUS WITHOUT COMPLIC 04/10/2017 RAYA MUNIZ FACC, ALI FACP CCDS Ot E66.01 MORBID (SEVERE) OBESITY DUE TO EXCESS CA 04/10/2017 RAYA MUNIZ FACC, ALI FACP CCDS Ot E78.4 OTHER HYPERLIPIDEMIA 04/10/2017 RAYA MUNIZ FACC, ALI FACP CCDS Ot I10 ESSENTIAL (PRIMARY) HYPERTENSION 04/10/2017 RAYA MUNIZ FACC, ALI FACP CCDS Ot R06.09 OTHER FORMS OF DYSPNEA 04/10/2017 RAYA MUNIZ FACC, ALI FACP CCDS Ot R07.89 OTHER CHEST PAIN 04/10/2017 RAYA MUNIZ FACC, ALI FACP CCDS Ot E11.9 TYPE 2 DIABETES MELLITUS WITHOUT COMPLIC 04/10/2017 RAYA MUNIZ FACC, ALI FACP CCDS Ot E66.01 MORBID (SEVERE) OBESITY DUE TO EXCESS CA 04/10/2017 RAYA MUNIZ FACC, ALI FACP CCDS Ot E78.4 OTHER HYPERLIPIDEMIA 04/10/2017 RAYA MUNIZ FACC, ALI FACP CCDS Ot I10 ESSENTIAL (PRIMARY) HYPERTENSION 04/10/2017 RAYA MUNIZ FAC, ALI FACP CCDS Ot R06.09 OTHER FORMS OF DYSPNEA 04/10/2017 RAYA MUNIZ FAC, ALI FACP CCDS Ot R07.89 OTHER CHEST PAIN 04/10/2017 JOSIE GURROLA APRN Ot G47.19 OTHER HYPERSOMNIA 04/10/2017 JOSIE GURROLA APRN Ot R06.09 OTHER FORMS OF DYSPNEA 04/10/2017 JOSIE GURROLA APRN Ot R06.83 SNORING 04/10/2017 ALEXIS HOOVER MD ([facility]) Ot J44.9 CHRONIC OBSTRUCTIVE PULMONARY DISEASE, U 04/10/2017 ALEXIS HOOVER MD ([facility]) Ot Z02.71 ENCOUNTER FOR DISABILITY DETERMINATION 04/10/2017 NIKI AKINS LIZZIE Ot M54.41 LUMBAGO WITH SCIATICA, RIGHT SIDE 04/10/2017 NIKI AKINS PATIENT ACCOUNT LIAISON Ot M54.42 LUMBAGO WITH SCIATICA, LEFT SIDE 04/10/2017 NIKI AKINS PATIENT ACCOUNT LIAISON Ot M54.6 PAIN IN THORACIC SPINE 04/10/2017 NIKI AKINS LIZZIE Ot M54.41 LUMBAGO WITH SCIATICA, RIGHT SIDE 04/13/2017 DAO SHARIFA K Ot E11.9 TYPE 2 DIABETES MELLITUS WITHOUT COMPLIC 04/13/2017 DAO SHARIFA Aron Ot E66.9 OBESITY, UNSPECIFIED 04/13/2017 DAO MICHAELS SHARIFA Aron Ot I10 ESSENTIAL (PRIMARY) HYPERTENSION 04/13/2017 DAO MICHAELS SHARIFA Aron Ot M51.36 OTHER INTERVERTEBRAL DISC DEGENERATION, 04/13/2017 DAO MICHAELS SHARIFA Aron Ot S80.11XA CONTUSION OF RIGHT LOWER LEG, INITIAL EN 04/13/2017 DAO MICHAELS SHARIFA Aron Ot S93.501A UNSPECIFIED SPRAIN OF RIGHT GREAT TOE, I 04/13/2017 DAO MICHAELS SHARIFA Aron Ot S99.921A UNSPECIFIED INJURY OF RIGHT FOOT, INITIA 04/13/2017 DAO MICHAELS SHARIFA Aron Ot W01.0XXA FALL SAME LEV FROM SLIP/TRIP W/O STRIKE 04/13/2017 DAO MICHAELS SHARIFA Aron Ot Y92.[address] [facility] [address] [facility] (PRIVATE 04/13/2017 DAO MICHAELS SHARIFA Aron Ot Y99.8 OTHER EXTERNAL CAUSE STATUS 04/13/2017 DAO MCIHAELS SHARIFA Aron Ot Z79.82 CORRECTION (CURRENT) USE OF ASPIRIN 04/13/2017 SHARIFA DC DO Ot Z79.84 CORRECTION (CURRENT) USE OF ORAL HYPOGLYC 04/13/2017 SHARIFA DC DO Ot Z79.899 OTHER CORRECTION (CURRENT) DRUG THERAPY 04/23/2017 SANFORD BOLAND MD Ot E11.9 TYPE 2 DIABETES MELLITUS WITHOUT COMPLIC 04/23/2017 SANFORD BOLAND MD Ot E11.9 TYPE 2 DIABETES MELLITUS WITHOUT COMPLIC 04/23/2017 RAYA MUNIZ FACC, ALI FACP CCDS Ot E11.9 TYPE 2 DIABETES MELLITUS WITHOUT COMPLIC 04/23/2017 RAYA MUNIZ FACC, ALI FACP CCDS Ot E66.01 MORBID (SEVERE) OBESITY DUE TO EXCESS CA 04/23/2017 RAYA MUNIZ FACC, ALI FACP CCDS Ot E78.4 OTHER HYPERLIPIDEMIA 04/23/2017 RAYA MD FACC, ALI FACP CCDS Ot I10 ESSENTIAL (PRIMARY) HYPERTENSION 04/23/2017 RAYA MUNIZ FACC, ALI FACP CCDS Ot R06.09 OTHER FORMS OF DYSPNEA 04/23/2017 RAYA MUNIZ FACC, ALI FACP CCDS Ot R07.89 OTHER CHEST PAIN 04/23/2017 RAYA MUNIZ FACC, ALI FACP CCDS Ot E11.9 TYPE 2 DIABETES MELLITUS WITHOUT COMPLIC 04/23/2017 RAYA MD FACC, ALI FACP CCDS Ot E66.01 MORBID (SEVERE) OBESITY DUE TO EXCESS CA 04/23/2017 RAYA MUNIZ FACC, ALI FACP CCDS Ot E78.4 OTHER HYPERLIPIDEMIA 04/23/2017 RAYA MUNIZ FAC, ALI FACP CCDS Ot I10 ESSENTIAL (PRIMARY) HYPERTENSION 04/23/2017 RAYA MUNIZ [facility], ALI FACP CCDS Ot R06.09 OTHER FORMS OF DYSPNEA 04/23/2017 RAYA MUNIZ FAC, ALI FACP CCDS Ot R07.89 OTHER CHEST PAIN 04/23/2017 JOSIE GURROLA APRN Ot G47.19 OTHER HYPERSOMNIA 04/23/2017 JOSIE GURROLA APRN Ot R06.09 OTHER FORMS OF DYSPNEA 04/23/2017 JOSIE GURROLA APRN Ot R06.83 SNORING 04/23/2017 ALEXIS HOOVER MD (DDU) Ot J44.9 CHRONIC OBSTRUCTIVE PULMONARY DISEASE, U 04/23/2017 ALEXIS HOOVER MD (DDU) Ot Z02.71 ENCOUNTER FOR DISABILITY DETERMINATION 04/23/2017 NIKI AKINS APRN Ot M54.41 LUMBAGO WITH SCIATICA, RIGHT SIDE 04/23/2017 NIKI AKINS APRN Ot M54.42 LUMBAGO WITH SCIATICA, LEFT SIDE 04/23/2017 NIKI AKINS APRN Ot M54.6 PAIN IN THORACIC SPINE 04/23/2017 NIKI AKINS APRN Ot M54.41 LUMBAGO WITH SCIATICA, RIGHT SIDE 04/23/2017 DAO SHARIFA MICHAELS Ot E11.9 TYPE 2 DIABETES MELLITUS WITHOUT COMPLIC 04/23/2017 DAO SHARIFA MICHAELS Ot E66.9 OBESITY, UNSPECIFIED 04/23/2017 DAO SHARIFA MICHAELS Ot I10 ESSENTIAL (PRIMARY) HYPERTENSION 04/23/2017 DAO SHARIFA MICHAELS Ot M51.36 OTHER INTERVERTEBRAL DISC DEGENERATION, 04/23/2017 DAO SHARIFA MICHAELS Ot S80.11XA CONTUSION OF RIGHT LOWER LEG, INITIAL EN 04/23/2017 SHARIFA DC DO Ot S93.501A UNSPECIFIED SPRAIN OF RIGHT GREAT TOE, I 04/23/2017 SHARIFA DC DO Ot S99.921A UNSPECIFIED INJURY OF RIGHT FOOT, INITIA 04/23/2017 SHARIFA DC DO Ot W01.0XXA FALL SAME LEV FROM SLIP/TRIP W/O STRIKE 04/23/2017 SHARIFA DC DO Ot Y92.[address] [facility] [address] [facility] ([facility] 04/23/2017 SHARIFA DC DO Ot Y99.8 OTHER EXTERNAL CAUSE STATUS 04/23/2017 SHARIFA DC DO Ot Z79.82 CARDIOVASCULAR SPECIALIST (CURRENT) USE OF ASPIRIN 04/23/2017 SHARIFA DC DO Ot Z79.84 CARDIOVASCULAR SPECIALIST (CURRENT) USE OF ORAL HYPOGLYC 04/23/2017 SHARIFA DC DO Ot Z79.899 OTHER CARDIOVASCULAR SPECIALIST (CURRENT) DRUG THERAPY 04/23/2017 NIKI AKINS APRN Ot M54.41 LUMBAGO WITH SCIATICA, RIGHT SIDE 04/23/2017 NIKI AKINS PATIENT ACCOUNT LIAISON Ot M54.42 LUMBAGO WITH SCIATICA, LEFT SIDE 04/23/2017 NIKI AKINS PATIENT ACCOUNT LIAISON Ot M54.6 PAIN IN THORACIC SPINE 04/24/2017 NIKI AKINS PATIENT ACCOUNT LIAISON Ot M54.41 LUMBAGO WITH SCIATICA, RIGHT SIDE 04/24/2017 NIKI AKINS PATIENT ACCOUNT LIAISON Ot M54.42 LUMBAGO WITH SCIATICA, LEFT SIDE 04/24/2017 NIKI AKINS PATIENT ACCOUNT LIAISON Ot M54.6 PAIN IN THORACIC SPINE 04/28/2017 KYA MUNIZ, SANFORD L Ot E11.9 TYPE 2 DIABETES MELLITUS WITHOUT COMPLIC 04/28/2017 KYA MUNIZ, SANFORD L Ot E11.9 TYPE 2 DIABETES MELLITUS WITHOUT COMPLIC 04/28/2017 RAYA MUNIZ FACC, ALI FACP CCDS Ot E11.9 TYPE 2 DIABETES MELLITUS WITHOUT COMPLIC 04/28/2017 RAYA MUNIZ FACC, ALI FACP CCDS Ot E66.01 MORBID (SEVERE) OBESITY DUE TO EXCESS CA 04/28/2017 RAYA MUNIZ FACC, ALI FACP CCDS Ot E78.4 OTHER HYPERLIPIDEMIA 04/28/2017 RAYA MUNIZ FACC, ALI FACP CCDS Ot I10 ESSENTIAL (PRIMARY) HYPERTENSION 04/28/2017 RAYA MUNIZ FACC, ALI FACP CCDS Ot R06.09 OTHER FORMS OF DYSPNEA 04/28/2017 RAYA MUNIZ FACC, ALI FACP CCDS Ot R07.89 OTHER CHEST PAIN 04/28/2017 RAYA MUNIZ FACC, ALI FACP CCDS Ot E11.9 TYPE 2 DIABETES MELLITUS WITHOUT COMPLIC 04/28/2017 RAYA MUNIZ FACC, ALI FACP CCDS Ot E66.01 MORBID (SEVERE) OBESITY DUE TO EXCESS CA 04/28/2017 RAYA MUNIZ FACC, ALI FACP CCDS Ot E78.4 OTHER HYPERLIPIDEMIA 04/28/2017 RAYA MUNIZ FACC, ALI FACP CCDS Ot I10 ESSENTIAL (PRIMARY) HYPERTENSION 04/28/2017 RAYA MUNIZ FACC, ALI FACP CCDS Ot R06.09 OTHER FORMS OF DYSPNEA 04/28/2017 RAYA MUNIZ FACC, ALI FACP CCDS Ot R07.89 OTHER CHEST PAIN 04/28/2017 JOSIE GURROLA PATIENT ACCOUNT LIAISON Ot G47.19 OTHER HYPERSOMNIA 04/28/2017 JOSIE GURROLA PATIENT ACCOUNT LIAISON Ot R06.09 OTHER FORMS OF DYSPNEA 04/28/2017 JOSIE GURROLA PATIENT ACCOUNT LIAISON Ot R06.83 SNORING 04/28/2017 ALEXIS HOOVER MD (DDU) Ot J44.9 CHRONIC OBSTRUCTIVE PULMONARY DISEASE, U 04/28/2017 ALEXIS HOOVER MD (U) Ot Z02.71 ENCOUNTER FOR DISABILITY DETERMINATION 04/28/2017 NIKI AKINS APRN Ot M54.41 LUMBAGO WITH SCIATICA, RIGHT SIDE 04/28/2017 NIKI AKINS APRN Ot M54.42 LUMBAGO WITH SCIATICA, LEFT SIDE 04/28/2017 NIKI AKINS PATIENT ACCOUNT LIAISON Ot M54.6 PAIN IN THORACIC SPINE 04/28/2017 NIKI AKINS LIZZIE Ot M54.41 LUMBAGO WITH SCIATICA, RIGHT SIDE Procedures Results Test Result Range Complete blood count (CBC) with automated white blood cell (WBC) differential - 03/22/17 17:35 Blood leukocytes automated count (number/volume) 6.8 10*3/ uL 4.3-11.0 Blood erythrocytes automated count (number/volume) 5.10 10*6 /uL 4.35-5.85 Venous blood hemoglobin measurement (mass/volume) 14.2 g/dL 13.3-17.7 Blood hematocrit (volume fraction) 44 % 40-54 Automated erythrocyte mean corpuscular volume 86 [foz_us] 80-99 Automated erythrocyte mean corpuscular hemoglobin (mass per erythrocyte) 28 pg 25-34 Automated erythrocyte mean corpuscular hemoglobin concentration measurement ( mass/volume) 33 g/dL 32-36 Automated erythrocyte distribution width ratio 12.3 % 10.0-14.5 Automated blood platelet count (count/volume) 321 10*3/uL 130-400 Automated blood platelet mean volume measurement 8.4 [foz_us ] 7.4-10.4 Automated blood neutrophils/100 leukocytes 55 % 42-75 Automated blood lymphocytes/100 leukocytes 30 % 12-44 Blood monocytes/100 leukocytes 9 % 0-12 Automated blood eosinophils/100 leukocytes 6 % 0-10 Automated blood basophils/100 leukocytes 1 % 0-10 Blood neutrophils automated count (number/volume) 3.8 10*3 1.8-7.8 Blood lymphocytes automated count (number/volume) 2.1 10*3 1.0-4.0 Blood monocytes automated count (number/volume) 0.6 10*3 0.0-1.0 Automated eosinophil count 0.4 10*3/uL 0.0-0.3 Automated blood basophil count (count/volume) 0.0 10*3/uL 0.0-0.1 Comprehensive metabolic panel - 03/22/17 17:35 Serum or plasma sodium measurement (moles/volume) 140 mmol/ L 135-145 Serum or plasma potassium measurement (moles/volume) 3.8 mmol/L 3.6-5.0 Serum or plasma chloride measurement (moles/volume) 100 mmol /L 98-107 Carbon dioxide 28 mmol/L 21-32 Serum or plasma anion gap determination (moles/volume) 12 mmol/L 5-14 Serum or plasma urea nitrogen measurement (mass/volume) 10 mg/dL 7-18 Serum or plasma creatinine measurement (mass/volume) 0.88 mg /dL 0.60-1.30 Serum or plasma urea nitrogen/creatinine mass ratio 11 NRG Serum or plasma creatinine measurement with calculation of estimated glomerular filtration rate > NRG Serum or plasma glucose measurement (mass/volume) 135 mg/dL 70-105 Serum or plasma calcium measurement (mass/volume) 9.6 mg/dL 8.5-10.1 Serum or plasma total bilirubin measurement (mass/volume) 0.4 mg/dL 0.1-1.0 Serum or plasma alkaline phosphatase measurement (enzymatic activity/volume) 67 U/L 40-136 Serum or plasma aspartate aminotransferase measurement (enzymatic activity/ volume) 31 U/L 5-34 Serum or plasma alanine aminotransferase measurement (enzymatic activity/volume ) 26 U/L 0-55 Serum or plasma protein measurement (mass/volume) 7.1 g/dL 6.4-8.2 Serum or plasma albumin measurement (mass/volume) 4.1 g/dL 3.2-4.5 Lipase - 03/22/17 17:35 Lipase 19 U/L 8-78 Complete urinalysis with reflex to culture - 03/22/17 17:48 Urine color determination YELLOW NRG Urine clarity determination CLEAR NRG Urine pH measurement by test strip 7 5- 9 Specific gravity of urine by test strip 1.010 1.016-1.022 Urine protein assay by test strip, semi-quantitative NEGATIVE NEGATIVE Urine glucose detection by automated test strip NEGATIVE NEGATIVE Erythrocytes detection in urine sediment by light microscopy NEGATIVE NEGATIVE Urine ketones detection by automated test strip NEGATIVE NEGATIVE Urine nitrite detection by test strip NEGATIVE NEGATIVE Urine total bilirubin detection by test strip NEGATIVE NEGATIVE Urine urobilinogen measurement by automated test strip (mass/volume) NORMAL NORMAL Urine leukocyte esterase detection by dipstick NEGATIVE NEGATIVE Automated urine sediment erythrocyte count by microscopy (number/high power field) NONE NRG Automated urine sediment leukocyte count by microscopy (number/high power field ) NONE NRG Bacteria detection in urine sediment by light microscopy NEGATIVE NRG Squamous epithelial cells detection in urine sediment by light microscopy NONE NRG Crystals detection in urine sediment by light microscopy NONE NRG Casts detection in urine sediment by light microscopy NONE NRG Mucus detection in urine sediment by light microscopy NEGATIVE NRG Complete urinalysis with reflex to culture NO NRG Encounters ACCT No. Visit Date/Time Discharge Status Pt. Type Provider Facility Loc./Unit Complaint [id number] 05/01/2017 06:29:00 2016 15:27:00 DIS Outpatient ANILA LAWRENCE DO [facility] PREOP HX DIVERTICULITIS; GERD [id number] 04/10/2017 21:05:00 2016 23:00:00 DIS Emergency DAO SHARIFA MICHAELS [facility] ER FALL INJURY TO RIGHT LEG [id number] 03/22/2017 16:25:00 2016 19:59:00 DIS Emergency DAO SHARIFA MICHAELS [facility] ER STOMACH ISSUES [id number] 04/23/2016 11:51:00 2015 15:13:00 DIS Outpatient ANILA LAWRENCE DO [facility] SDC CHEST PAIN, HX POLPYS [id number] 01/15/2016 20:17:00 2015 07:00:00 DIS Outpatient JOSIE GURROLA APRN [facility] SLEEP [id number] 11/27/2015 20:09:00 2015 06:25:00 DIS Outpatient JOSIE GURROLA APRN [facility] SLEEP OBSERVED APNEAS, SNORING, CHOKING/GASPIN DURING SL [id number] 09/25/2015 12:11:00 2014 23:59:59 CLS Outpatient ELISABETH DOS SANTOS MD, FACC, FACP CCDS [facility] CARD CHEST DISCOMFORT [id number] 09/14/2015 07:49:00 2014 23:59:59 CLS Outpatient ELISABETH DOS SANTOS MD, FACC, FACP CCDS [facility] CARD CHEST DISCOMFORT [id number] 08/22/2015 07:05:00 2014 23:59:59 CLS Outpatient SANFORD BOLAND MD [facility] LABNPT ADD ON LAB [id number] 08/22/2015 07:05:00 2014 23:59:59 CLS Outpatient SANFORD BOLAND MD [facility] LABNPT DIABETES MELITIUS [id number] 08/22/2015 06:59:00 2014 08:28:00 DIS Emergency DORI ANAYA MD [facility] ER CP [id number] 01/28/2015 08:27:00 2014 10:05:00 DIS Emergency SHARIFA DC DO K [facility] ER LEFT LEG PAIN [id number] 05/25/2013 17:25:00 2012 23:59:59 CLS Outpatient SANFORD BOLAND MD [facility] RAD [id number] 05/06/2017 15:00:00 PEN Preadmit ANILA LAWRENCE DO [facility] ENDO HX DIVERTICULITIS;GERD [id number] 06/05/2016 12:59:00 ACT Outpatient NIKI AKINS PATIENT ACCOUNT LIAISON [facility] RAD SCIATIC NERVE PAIN [id number] 04/18/2016 05:37:00 ACT Outpatient ANILA LAWRENCE DO [facility] PREOP [id number] 04/16/2016 10:05:00 ACT Outpatient NIKI AKINS PATIENT ACCOUNT LIAISON [facility] RAD PAIN IN THORACIC SPINE,[facility] WITH [facility] [id number] 01/19/2016 11:25:00 ACT Outpatient KIKO MUNIZ, ALEXIS Oviedo (DDU) [facility] RT COPD [id number] 01/15/2016 09:09:00 ACT Outpatient JOSIE GURROLA PATIENT ACCOUNT LIAISON [facility] RAD [id number] 12/04/2015 14:23:00 ACT Outpatient JOSIE GURROLA PATIENT ACCOUNT LIAISON [facility] RT AVELAR, EXCESSIVE DATYIME SLEEPINESS, SNORING
[2017-05-06] MEDS ORDERED: LACTATED RINGERS 1,000 ML IV PRN (13:30)
[2017-05-06] MEDS ORDERED: HURRICAINE EXT TUBE (BENZOCAINE) XX PRN (13:30)
[2017-05-06] MEDS ORDERED: MIDAZOLAM 2 MG/2 ML (VERSED) VIAL ONE (13:51)
[2017-05-06] MEDS ORDERED: PROPOFOL INJECTION 50 ML IV ONE (13:51)
--- NOTE | 2017-05-06 14:27 | Progress Note-Pre Operative ---
Pre-Operative Progress Note H&P Reviewed The H&P was reviewed, patient examined and no changes noted. Date Seen by Provider: May 06, 2017 Time Seen by Provider: 14: Date H&P Reviewed: May 06, 2017 Time H&P Reviewed: : Pre-Operative Diagnosis: gerd, history of diverticulitis NAILA LAWRENCE DO May 06, 2017 2:27 pm
[2017-05-06] MEDS ORDERED: PANT40TA2 PO (15:24)
--- NOTE | 2017-05-06 15:27 | Operative Report ---
Operative Report Date of Procedure/Surgery May 06, 2017 Surgeon (s) ANILA LAWRENCE DO Plate Inspector (s): na Post-Operative Diagnosis duodenitis with slight ulceration, slight gastritis, small hiatal hernia, rectal polyp x 2 Procedure Performed egd with biopsy, colonoscopy with hot biopsy polypectomy x 2 Description of Procedure Anesthesia Type: MAC Estimated blood loss (mL): none Specimen(s) collected/removed antrum, rectal polyp x 2 Description of the Procedure COMPLICATIONS: None. INDICATIONS: The patient is a 62 male who presented with history of diverticulitis and GERD. He was recommended to have EGD and colonoscopy. He understands the risks and benefits and wished to proceed with procedure. Consent was signed and on the chart. The patient was taken to the endoscopy suite, placed in left lateral recumbent position. Timeout was performed. Scope was inserted into the mouth, down the esophagus, stomach and into the duodenum without difficulty. There are no polyps, masses within the duodenum, but had erythematous changes and slight ulceration. The scope was slowly retracted back into the stomach where in antrum there were some erythematous changes Biopsy of the antrum at this area was obtained. The scope was then slowly retracted back and retroflexed noting a small hiatal hernia. Scope was returned to its normal position, slowly withdrawn back into the distal esophagus, there were no changes at the GE junction. Scope was slowly retracted back noting no other pathology. Digital rectal exam was performed and there were no palpable polyps, masses or ulcerations. Scope was inserted in the rectum and advanced all the way to the cecum with minimal difficulty. Prep was adequate. Scope was then slowly retracted back. There were no polyps, masses or ulcerations within the cecum, ascending, transverse, descending and sigmoid colon. There was a fair amount of diverticulosis around the left colon. Once in the rectum, scope was also retroflexed noting 2 polyps in the rectum. Hot biopsy polypectomy was performed on both polyps. Scope was returned to its normal position, slowly withdrawn until completely removed. The patient tolerated procedure well without any complications. The patient was taken to recovery room in stable condition. RECOMMENDATIONS: Patient will follow up in the office to discuss pathology results3 weeks. The patient would recommend repeat colonoscopy if she has any problems at that time; otherwise in 5 years. We would recommend a repeat EGD in 6-12 months to reevaluate. Patient was also recommended to follow up with PCP to evaluate pancreatic cyst. Findings of the Procedure see above Allergies and Home Medications Allergies Coded Allergies: No Known Drug Allergies (Unverified , 05/01/17) Home Medications Albuterol Sulfate 18 Gm Hfa.aer.ad, 1-2 PUFF IH QID, (Reported) Amlodipine Besylate 10 Mg Tablet, 10 MG PO DAILY, (Reported) Aspirin 325 Mg Tab, 325 MG PO DAILY, (Reported) Diclofenac Sodium 75 Mg Tablet.dr, 75 MG PO BID, (Reported) Esomeprazole Magnesium 20 Mg Capsule.dr, 20 MG PO DAILY, (Reported) Fluticasone/Vilanterol 1 Each Blst.w.dev, 1 EACH IH DAILY, (Reported) Gabapentin 600 Mg Tablet, 600 MG PO TID, (Reported) Hydrochlorothiazide 12.5 Mg Tablet, 12.5 MG PO DAILY, (Reported) Lisinopril 10 Mg Tablet, 10 MG PO DAILY, (Reported) Metformin Hcl 1,000 Mg Tablet, 1 EACH PO BID WITH MEALS, (Reported) Milnacipran HCl 100 Mg Tablet, 100 MG PO BID, (Reported) [place]-3/Dha/Epa/Fish Oil 1 Each Capsule.dr, 2 EACH PO DAILY, (Reported) Pravastatin Sodium 40 Mg Tablet, 40 MG PO HS, (Reported) Sucralfate 1 Gm Tablet, 1 GM PO QID, (Reported) Tiotropium [place] 4 Gm Mist.inhal, 2 PUFF IH DAILY, (Reported) Trazodone Hcl 150 Mg Tablet, 150 MG PO HS, (Reported) ANILA LAWRENCE DO May 06, 2017 3:27 pm
--- NOTE | 2017-05-06 15:27 | Discharge Inst-Simple/Standard ---
Discharge Inst-Standard Discharge Medications New, Converted or Re-Newed RX: Transmitted to Pharmacy Patient Instructions/Follow Up Plan of Care/Instructions/FU: Hold NSAIDS for 3 more days Take medication as directed. Follow up with Dr. Chaudhry in 2-3 weeks Repeat colonoscopy in 5 years or sooner if changes to current condition. Activity as Tolerated: Yes Discharge Diet: No Restrictions CLINT CARRANZA APRN May 06, 2017 15:27
[2017-05-06 15:30] VITALS: BP 126/92
[2017-05-06 16:00] VITALS: BP 122/94
[2017-05-06 16:11] VITALS: BP 122/94
== END 2017-05-06 16:13 | disposition home or self-care (01) ==
LOC: ENDO 13:15
PROVIDERS: ATTEND Surgery
DX: D12.8 Benign neoplasm of rectum (principal); K62.1 Rectal polyp; K57.30 Diverticulosis of large intestine without perforation or abscess without bleeding; K21.9 Gastro-esophageal reflux disease without esophagitis; K29.80 Duodenitis without bleeding; K26.9 Duodenal ulcer, unspecified as acute or chronic, without hemorrhage or perforation; K29.70 Gastritis, unspecified, without bleeding; K44.9 Diaphragmatic hernia without obstruction or gangrene; K59.00 Constipation, unspecified; E11.9 Type 2 diabetes mellitus without complications; J44.9 Chronic obstructive pulmonary disease, unspecified; J45.909 Unspecified asthma, uncomplicated; I10 Essential (primary) hypertension; G47.30 Sleep apnea, unspecified; Z79.84 Long term (current) use of oral hypoglycemic drugs; Z79.899 Other long term (current) drug therapy
CPT/HCPCS: 82962

== ENCOUNTER 2017-05-16 14:47 | Inpatient (IN) | payer OTHER ==
[~2017-05-16] VITALS: Ht 175.3 cm; Wt 132.2 kg
[~2017-05-16 14:47] MED LIST changes: +PANT40TA2 PO
--- NOTE | 2017-05-16 16:23 | ED General ---
General Chief Complaint: Abdominal/GI Problems Stated Complaint: DIZZY//NAUSEA//WEAKNESS Nursing Triage Note: pt ambulated to ed with cane. pt states he fell over his guitar case and fell onto both knees approx. 30 min ago. pt is concerned about it right knee/leg. pt states he did not hit his head. no loc. Source of Information: Patient Exam Limitations: No Limitations History of Present Illness Time Seen by Provider: 16:05 Initial Comments The patient is a 62-year-old white male who presents with complaints of rather sudden unremarkable loss of power at about 1400 hours. He states that he was sitting on the commode attempting to have a bowel movement when this happened. He has continued to feel very dizzy with nausea and weakness since. He apparently tripped and fell in his home while ambulating on surely and with the use of a cane. He reports that yesterday he was much more nearly his normal and was able to make a trip to [facility] and walk about albeit stopping to rest from time to time. He would rate this is about his usual performance. He denied fever or chills. He reports urinary frequency but not dysuria. Timing/Duration: 1-3 Hours Associated Systoms: Diaphoresis, Weakness Allergies and Home Medications Allergies Coded Allergies: No Known Drug Allergies (Unverified , 05/01/17) Home Medications Albuterol Sulfate 18 Gm Hfa.aer.ad, 1-2 PUFF IH QID, (Reported) Amlodipine Besylate 10 Mg Tablet, 10 MG PO DAILY, (Reported) Fluticasone/Vilanterol 1 Each Blst.w.dev, 1 EACH IH DAILY, (Reported) Gabapentin 600 Mg Tablet, 600 MG PO TID, (Reported) Hydrochlorothiazide 12.5 Mg Tablet, 12.5 MG PO DAILY, (Reported) Lisinopril 10 Mg Tablet, 10 MG PO DAILY, (Reported) Metformin Hcl 1,000 Mg Tablet, 1 EACH PO BID WITH MEALS, (Reported) Milnacipran HCl 100 Mg Tablet, 100 MG PO BID, (Reported) [place]-3/Dha/Epa/Fish Oil 1 Each Capsule.dr, 2 EACH PO DAILY, (Reported) Pantoprazole Sodium 40 Mg Tablet.dr, 40 MG PO DAILY, #30 Ref 6 Prescribed by: CLINT DELEON [facility] on 05/06/17 1524 Pravastatin Sodium 40 Mg Tablet, 40 MG PO HS, (Reported) Sucralfate 1 Gm Tablet, 1 GM PO QID, (Reported) Tiotropium [place] 4 Gm Mist.inhal, 2 PUFF IH DAILY, (Reported) Trazodone Hcl 150 Mg Tablet, 150 MG PO HS, (Reported) Constitutional: see HPI EENTM: no symptoms reported Respiratory: no symptoms reported Cardiovascular: no symptoms reported Gastrointestinal: no symptoms reported, nausea Genitourinary: frequency, hesitancy Musculoskeletal: muscle weakness Skin: no symptoms reported Psychiatric/Neurological: No Symptoms Reported Hematologic/Lymphatic: No Symptoms Reported Immunological/Allergic: no symptoms reported Past Lmywkbk-Czydwu-Aqjcmh Hx Patient Social History Alcohol Use: Denies Use Recreational Drug Use: No Smoking Status: Never a Smoker Former Smoker/When Quit: Jan 09, 2000 2nd Hand Smoke Exposure: No Recent Foreign Travel: No Contact w/Someone Who Travel: No Recent Infectious Disease Expo: No Recent Hopitalizations: No Immunizations Up To Date Date of Pneumonia Vaccine: March 11, 2016 Seasonal Allergies Seasonal Allergies: Yes Surgeries HX Surgeries: Yes (HERNIA) Surgeries: Abdominal, Gallbladder, Tonsillectomy Respiratory Hx Respiratory Disorders: Yes (2L NC AT NIGHT) Respiratory Disorders: Asthma, Sleep Apnea, COPD Cardiovascular Hx Cardiac Disorders: Yes Cardiac Disorders: High Cholesterol, Hypertension Neurological Hx Neurological Disorders: No Reproductive System Hx Reproductive Disorders: No Sexually Transmitted Disease: No HIV/AIDS: No Genitourinary Hx Genitourinary Disorders: No Gastrointestinal Hx Gastrointestinal Disorders: Yes Gastrointestinal Disorders: Abdominal Hernia, Gastroesophageal Reflux, Diverticulosis, Hepatitis, Polyps, Irritable Bowel Musculoskeletal Hx Musculoskeletal Disorders: Yes (RIGHT SCIATICA--WALKS WITH CANE) Musculoskeletal Disorders: Degenerate Disk Disease, Arthritis, Chronic Back Pain Endocrine Hx Endocrine Disorders: Yes Endocrine Disorders: Diabetes, Non-Insulin dep HEENT HX ENT Disorders: Yes (GLASSES,DENTURES) Loss of Vision: Bilateral Hearing Impairment: Hearing Aide Right Cancer Hx Cancer: No Psychosocial Hx Psychiatric Problems: No Integumentary HX Skin/Integumentary Disorder: No Blood Transfusions Hx Blood Disorders: No Adverse Reaction to a Blood Tr: No Physical Exam Vital Signs Vital Sign - Last 12Hours 05/16/17 05/16/17 15:56 16:39 Temp 99.0 Pulse 123 Resp 18 B/P (MAP) 96/63 Pulse Ox 94 O2 Delivery Room Air Capillary Refill : Less Than 3 Seconds General Appearance: Mild Distress Eyes: Bilateral Eye Normal Inspection HEENT: Other (white exudate or postnasal drip) Neck: Full Range of Motion Respiratory: Decreased Breath Sounds (distant) Cardiovascular: Regular Rate, Rhythm, No Edema, No Gallop, No JVD, No Murmur, Normal Peripheral Pulses Gastrointestinal: Normal Bowel Sounds, No Organomegaly, No Pulsatile Mass, Non Tender, Soft, Other (obese) Back: Normal Inspection, No CVA Tenderness, No Vertebral Tenderness Extremity: Normal Capillary Refill, Normal Inspection, Normal Range of Motion, Non Tender, No Calf Tenderness, No Pedal Edema Neurologic/Psychiatric: Alert, Oriented x3, No Motor/Sensory Deficits, Normal Mood/Affect Skin: Normal Color Lymphatic: No Adenopathy Focused Exam Lactic Acid Level Laboratory Tests Test 05/16/17 15:54 Lactic Acid Level 3.63 MMOL/L (0.50-2.00) *H Progress/Results/Core Measures Results/Orders Lab Results Laboratory Tests Test 05/16/17 15:46 05/16/17 15:54 Range/Units Glucometer 145 H 70-110 MG/DL White Blood Count 9.2 4.3-11.0 10^3/uL Red Blood Count 5.16 4.35-5.85 10^6/uL Hemoglobin 13.9 13.3-17.7 G/DL Hematocrit 43 40-54 % Mean Corpuscular Volume 84 80-99 FL Mean Corpuscular Hemoglobin 27 25-34 PG Mean Corpuscular Hemoglobin Concent 32 32-36 G/DL Red Cell Distribution Width 13.2 10.0-14.5 % Platelet Count 324 130-400 10^3/uL Mean Platelet Volume 8.7 7.4-10.4 FL Neutrophils (%) (Auto) 76 H 42-75 % Lymphocytes (%) (Auto) 13 12-44 % Monocytes (%) (Auto) 9 0-12 % Eosinophils (%) (Auto) 2 0-10 % Basophils (%) (Auto) 0 0-10 % Neutrophils # (Auto) 7.0 1.8-7.8 X 10^3 Lymphocytes # (Auto) 1.2 1.0-4.0 X 10^3 Monocytes # (Auto) 0.8 0.0-1.0 X 10^3 Eosinophils # (Auto) 0.2 0.0-0.3 10^3/uL Basophils # (Auto) 0.0 0.0-0.1 10^3/uL Sodium Level 137 135-145 MMOL/L Potassium Level 4.1 3.6-5.0 MMOL/L Chloride Level 101 98-107 MMOL/L Carbon Dioxide Level 25 21-32 MMOL/L Anion Gap 11 5-14 MMOL/L Blood Urea Nitrogen 13 7-18 MG/DL Creatinine 1.23 0.60-1.30 MG/DL Estimat Glomerular Filtration Rate 60 BUN/Creatinine Ratio 11 Glucose Level 154 H 70-105 MG/DL Lactic Acid Level 3.63 *H 0.50-2.00 MMOL/L Calcium Level 9.4 8.5-10.1 MG/DL Total Bilirubin 0.5 0.1-1.0 MG/DL Aspartate Amino Transf (AST/SGOT) 31 5-34 U/L Alanine Aminotransferase (ALT/SGPT) 28 0-55 U/L Alkaline Phosphatase 62 40-136 U/L Troponin I < 0.30 <0.30 NG/ML Total Protein 6.8 6.4-8.2 GM/DL Albumin 4.0 3.2-4.5 GM/DL My Orders Orders - MELANIE MADERA MD Cbc With Automated Diff (05/16/17 16:16) Comprehensive Metabolic Panel (05/16/17 16:16) Drug Screen Stat (Urine) (05/16/17 16:16) Troponin I (05/16/17 16:16) Ua Culture If Indicated (05/16/17 16:16) Blood Culture (05/16/17 16:16) Lactic Acid Analyzer (05/16/17 16:16) Lactated Ringers (Lr 1000 Ml Iv Solution (05/16/17 17:15) Lactated Ringers (Lr 1000 Ml Iv Solution (05/16/17 17:15) Chest 1 View, Ap/Pa Only (05/16/17 17:23) Piperacillin Sodium/Tazobactam (Zosyn Vi (05/16/17 17:45) Vital Signs/I&O Vital Sign - Last 12Hours 05/16/17 05/16/17 15:56 16:39 Temp 99.0 Pulse 123 123 Resp 18 18 B/P (MAP) 96/63 111/88 Pulse Ox 94 O2 Delivery Room Air Blood Pressure Mean: 94 Departure Communication Progress Notes SIRS, Sepsis, and Septic Shock Criteria SIRS Criteria: Temp Over 38.0 deg C (100.4 deg F) or Below 36.0 deg C (96.8 deg F): No Heart Rate Over 90: Yes Respiratory Rate Over 20 or CO2 Partial Pressure Below 32: No WBC Over 09624, Below 4000, or More than 10% bands: No Sepsis Criteria: Suspected or Present Source of Infection: Yes Severe Sepsis Criteria: Organ Dysfunction, Hypotension, or Hypoperfusion: No Septic Shock Criteria: Severe Sepsis with Hypotension, despite adequate fluid resuscitation: No Multiple Organ Dysfunction Syndrome Criteria: Evidence of 2 or More Organs Failing: No Does not meet SIRS Criteria Patient had initial blood pressures marginally above the criteria of systolic less than 90 or and AP less than 65. Lactic acid is 3.64. UA has not yet been obtained but he describes frequency and hesitancy. [address] Tirado and the patient will be admitted to the fourth medical Impression Impression: Primary Impression: sepsis Disposition: ADMITTED INPATIENT Condition: Stable/Unchanged Decision to Admit Reason: Admit from ER (General) Decision to Admit/Date: May 16, 2017 Time/Decision to Admit Time: 17:30 Departure-Patient Inst. Referrals: [facility] (PCP) Primary Care Physician NIKI AKINS APRN (Family) Primary Care Physician MELANIE MADERA MD May 16, 2017 16:23
[2017-05-16 16:24] LABS: BASOPHILS % (AUTO) 0 % (0-10); EOSINOPHILS # (AUTO) 0.2 10^3/uL (0.0-0.3); EOSINOPHILS % (AUTO) 2 % (0-10); LYMPHOCYTES # (AUTO) 1.2 X 10^3 (1.0-4.0); LYMPHOCYTES % (AUTO) 13 % (12-44); MEAN CORPUSCULAR HEMOGLOBIN 27 PG (25-34); MEAN CORPUSCULAR HGB CONC 32 G/DL (32-36); MEAN CORPUSCULAR VOLUME 84 FL (80-99); MEAN PLATELET VOLUME 8.7 FL (7.4-10.4); MONOCYTES # (AUTO) 0.8 X 10^3 (0.0-1.0); MONOCYTES % (AUTO) 9 % (0-12); NEUTROPHILS % (AUTO) 76 % (42-75); PLATELET COUNT 324 10^3/uL (130-400); RED BLOOD COUNT 5.16 10^6/uL (4.35-5.85); RED CELL DISTRIBUTION WIDTH 13.2 % (10.0-14.5); WHITE BLOOD COUNT 9.2 10^3/uL (4.3-11.0)
[2017-05-16 16:36] LABS: ALANINE AMINOTRANSFERASE 28 U/L (0-55); ANION GAP 11 MMOL/L (5-14); ASPARTATE AMINO TRANSFERASE 31 U/L (5-34); BILIRUBIN,TOTAL 0.5 MG/DL (0.1-1.0); BLOOD UREA NITROGEN 13 MG/DL (7-18); BUN/CREATININE RATIO 11; CALCIUM 9.4 MG/DL (8.5-10.1); CARBON DIOXIDE 25 MMOL/L (21-32); CHLORIDE 101 MMOL/L (98-107); CREATININE SERUM 1.23 MG/DL (0.60-1.30); GFR ESTIMATED 60; GLUCOSE 154 MG/DL (70-105); POTASSIUM 4.1 MMOL/L (3.6-5.0); SODIUM 137 MMOL/L (135-145); TOTAL PROTEIN 6.8 GM/DL (6.4-8.2)
[2017-05-16 16:39] VITALS: BP 111/88
[2017-05-16 16:43] LABS: TROPONIN I < 0.30 NG/ML (<0.30)
[2017-05-16] MEDS ORDERED: LACTATED RINGERS 1,000 ML IV SCH ×2 (17:15)
[2017-05-16] MEDS ORDERED: PIPERACILLIN SODIUM/TAZOBACTAM 4.5 GM in NS (IVPB) 100 ML IV ONE (17:45)
[2017-05-16 18:15] LABS: KETONES,URINE 1+ (NEGATIVE); LEUKOCYTE ESTERASE ,URINE 1+ (NEGATIVE); NITRITE,URINE POSITIVE (NEGATIVE); PH,URINE 5 (5-9); PROTEIN,URINE 2+ (NEGATIVE); UROBILINOGEN,URINE 4 MG/DL (NORMAL)
--- NOTE | 2017-05-16 18:15 | Diagnostic Imaging Report ---
INDICATION: Weakness. EXAMINATION: Portable erect AP chest at 5:36 p.m. FINDINGS: The heart size is within normal limits and stable when compared to 08/22/15. The lungs are clear. There is no sign of failure, pneumonia or a pleural effusion to suggest an acute abnormality. As on the prior exam, there is mild scar formation in the left lower lobe. The previous study also suggested there may be a nodular density overlying the right upper lung. That finding is not visualized on this study and in retrospect was probably secondary to superimposition. The mediastinum is not widened. The osseous structures are intact. IMPRESSION: There is no evidence for an acute cardiopulmonary abnormality. Dictated by: Dictated on workstation # [id number]
[2017-05-16 18:23] LABS: BILIRUBIN,URINE 2+ (NEGATIVE); HYALINE CASTS, URINE >50 /LPF; WBC,URINE 0-2 /HPF
[2017-05-16 18:50] VITALS: BP 121/70
[2017-05-16 19:48] VITALS: BP 104/55
[2017-05-16 20:00] VITALS: BP 115/73
[2017-05-16] MEDS ORDERED: ACETAMINOPHEN 325 MG TABLET/CAPLET (TYLENOL) PO PRN (20:15)
[2017-05-16] MEDS ORDERED: VANCOMYCIN 2000 MG/NS 500 ML IVPB IV NR ×2 (20:15)
[2017-05-16] MEDS: NOREPINEPHRINE 4 MG in D5W 250 ML (IVPB) 250 ML IV SCH (20:28)
[2017-05-16] MEDS ORDERED: CATHETER FLUSH 10 ML SYR IV PRN (20:30)
[2017-05-16] MEDS ORDERED: LACTATED RINGERS 1,000 ML IV ONE ×2 (20:45→21:45)
[2017-05-16 21:00] VITALS: BP 115/73
[2017-05-16 22:00] VITALS: BP 137/114
[2017-05-16 22:08] LABS: BASOPHILS % (AUTO) 1 % (0-10); EOSINOPHILS # (AUTO) 0.2 10^3/uL (0.0-0.3); EOSINOPHILS % (AUTO) 3 % (0-10); LYMPHOCYTES # (AUTO) 2.1 X 10^3 (1.0-4.0); LYMPHOCYTES % (AUTO) 31 % (12-44); MEAN CORPUSCULAR HEMOGLOBIN 27 PG (25-34); MEAN CORPUSCULAR HGB CONC 32 G/DL (32-36); MEAN CORPUSCULAR VOLUME 85 FL (80-99); MEAN PLATELET VOLUME 8.5 FL (7.4-10.4); MONOCYTES # (AUTO) 0.6 X 10^3 (0.0-1.0); MONOCYTES % (AUTO) 10 % (0-12); NEUTROPHILS # (AUTO) 3.6 X 10^3 (1.8-7.8); NEUTROPHILS % (AUTO) 55 % (42-75); PLATELET COUNT 264 10^3/uL (130-400); RED CELL DISTRIBUTION WIDTH 13.2 % (10.0-14.5); WHITE BLOOD COUNT 6.5 10^3/uL (4.3-11.0)
[2017-05-16] MEDS: NS IV 1000 ML 1,000 ML IV SCH (23:12)
[2017-05-17] VITALS (20 sets, daily range): BP systolic 99–177; BP diastolic 0–91
[2017-05-17] MEDS: PIPERACILLIN/TAZOBACTAM 4.5 GM/NS 100 ML IVPB IV SCH ×6 (00:09→17:26)
[2017-05-17 04:09] LABS: BASOPHILS % (AUTO) 1 % (0-10); EOSINOPHILS # (AUTO) 0.3 10^3/uL (0.0-0.3); EOSINOPHILS % (AUTO) 6 % (0-10); LYMPHOCYTES # (AUTO) 1.7 X 10^3 (1.0-4.0); LYMPHOCYTES % (AUTO) 27 % (12-44); MEAN CORPUSCULAR HEMOGLOBIN 27 PG (25-34); MEAN CORPUSCULAR HGB CONC 32 G/DL (32-36); MEAN CORPUSCULAR VOLUME 85 FL (80-99); MEAN PLATELET VOLUME 8.6 FL (7.4-10.4); MONOCYTES # (AUTO) 0.7 X 10^3 (0.0-1.0); MONOCYTES % (AUTO) 11 % (0-12); NEUTROPHILS # (AUTO) 3.4 X 10^3 (1.8-7.8); NEUTROPHILS % (AUTO) 56 % (42-75); PLATELET COUNT 252 10^3/uL (130-400); RED BLOOD COUNT 4.61 10^6/uL (4.35-5.85); RED CELL DISTRIBUTION WIDTH 13.2 % (10.0-14.5); WHITE BLOOD COUNT 6.1 10^3/uL (4.3-11.0)
[2017-05-17] MEDS: NOREPINEPHRINE 4 MG in D5W 250 ML (IVPB) 250 ML IV SCH ×3 (04:23→16:48)
[2017-05-17 04:43] LABS: ANION GAP 10 MMOL/L (5-14); BLOOD UREA NITROGEN 10 MG/DL (7-18); BUN/CREATININE RATIO 11; CALCIUM 8.7 MG/DL (8.5-10.1); CARBON DIOXIDE 26 MMOL/L (21-32); CHLORIDE 105 MMOL/L (98-107); CREATININE SERUM 0.88 MG/DL (0.60-1.30); GFR ESTIMATED > 60; GLUCOSE 113 MG/DL (70-105); MAGNESIUM 1.9 MG/DL (1.8-2.4); PHOSPHORUS 3.4 MG/DL (2.3-4.7); POTASSIUM 3.9 MMOL/L (3.6-5.0); SODIUM 141 MMOL/L (135-145)
[2017-05-17] MEDS ORDERED: MAGNESIUM 1 GM/100 ML IVPB 100 ML IV SCH (06:00)
[2017-05-17] MEDS ORDERED: KCL 20 MEQ TAB (K-DUR) PO SCH (06:00)
[2017-05-17] MEDS ORDERED: POTASSIUM CL 10MEQ/50ML IVPB 50 ML IV SCH (06:00)
[2017-05-17] MEDS: NS IV 1000 ML 1,000 ML IV SCH ×3 (07:30→17:48)
[2017-05-17] MEDS ORDERED: VANCOMYCIN 1500 MG/NS 500 ML IVPB IV SCH ×2 (08:00)
[2017-05-17] MEDS: PANTOPRAZOLE 40 MG (PROTONIX) TAB PO SCH (09:35)
--- NOTE | 2017-05-17 10:47 | Diagnostic Imaging Report ---
INDICATION: Dyspnea. TECHNIQUE: Single view chest 4:52 AM. CORRELATION STUDY: 05/16/2017 FINDINGS: Heart size and vasculature generally stable. Slightly prominent appearance in the region of the ascending aorta. Minimal atelectasis or scarring left costophrenic angle with lungs otherwise relatively clear. IMPRESSION: 1. Overall generally stable appearance about the chest. No acute abnormality. Dictated by: Dictated on workstation # [id number]
--- NOTE | 2017-05-17 12:16 | History & Physicial ([facility]) ---
MARSHALL DUARTE Aron STUDENT 05/17/17 12:16pm: HPI History of Present Illness: Weakness, presyncope, nausea Source: patient Exam Limitations: no limitations Date seen by provider: May 17, 2017 Time Seen by Provider: 11:00 Attending Physician Nilam Wilkerson MD PCP [place],[facility] Date of Admission May 16, 2017 at 18:05 Home Medications Home Medications Reviewed patient Home Medication Reconciliation Form Allergies Coded Allergies: No Known Drug Allergies (Unverified , 05/01/17) [id number] Hx Patient Social History Marrital Status: Alcohol Use: Denies Use Recreational Drug Use: No Smoking Status: Former Smoker Former smoker/When Quit: Jan 09, 2000 Type Used: Cigarettes 2nd Hand Smoke Exposure: No Recent Foreign Travel: No Contact w/other who traveled: No Recent Hopitalizations: No Recent Infectious Disease Expo: No Physical Abuse Screen: No Sexual Abuse: No Immunizations Up To Date Date of Pneumonia Vaccine: March 11, 2016 Past Medical History HTN, diabetes mellitus type II, GERD, IBS, emphyseman, COPD, asthma, sciatica, arthritis, carpal tunnel, hernia repair, cholecystectomy, tonsilectomy Review of Systems ([facility]) Constitutional: dizziness, malaise, weakness EENTM: no symptoms reported Respiratory: no symptoms reported Cardiovascular: no symptoms reported Gastrointestinal: abdominal pain, constipation (Chronic IBS sx) Genitourinary: frequency Musculoskeletal: no symptoms reported Skin: no symptoms reported Psychiatric/Neurological: Weakness All Other Systems Reviewed Negative Unless Noted: Yes (Negative excepted noted.) Reviewed Test Results Reviewed Test Results Lab Laboratory Tests Test 05/16/17 15:46 05/16/17 15:54 05/16/17 17:47 05/16/17 18:01 Range/Units Glucometer 145 H 70-110 MG/DL White Blood Count 9.2 4.3-11.0 10^3/uL Red Blood Count 5.16 4.35-5.85 10^6/uL Hemoglobin 13.9 13.3-17.7 G/DL Hematocrit 43 40-54 % Mean Corpuscular Volume 84 80-99 FL Mean Corpuscular Hemoglobin 27 25-34 PG Mean Corpuscular Hemoglobin Concent 32 32-36 G/DL Red Cell Distribution Width 13.2 10.0-14.5 % Platelet Count 324 130-400 10^3/uL Mean Platelet Volume 8.7 7.4-10.4 FL Neutrophils (%) (Auto) 76 H 42-75 % Lymphocytes (%) (Auto) 13 12-44 % Monocytes (%) (Auto) 9 0-12 % Eosinophils (%) (Auto) 2 0-10 % Basophils (%) (Auto) 0 0-10 % Neutrophils # (Auto) 7.0 1.8-7.8 X 10^3 Lymphocytes # (Auto) 1.2 1.0-4.0 X 10^3 Monocytes # (Auto) 0.8 0.0-1.0 X 10^3 Eosinophils # (Auto) 0.2 0.0-0.3 10^3/uL Basophils # (Auto) 0.0 0.0-0.1 10^3/uL Sodium Level 137 135-145 MMOL/L Potassium Level 4.1 3.6-5.0 MMOL/L Chloride Level 101 98-107 MMOL/L Carbon Dioxide Level 25 21-32 MMOL/L Anion Gap 11 5-14 MMOL/L Blood Urea Nitrogen 13 7-18 MG/DL Creatinine 1.23 0.60-1.30 MG/DL Estimat Glomerular Filtration Rate 60 BUN/Creatinine Ratio 11 Glucose Level 154 H 70-105 MG/DL Lactic Acid Level 3.63 *H 2.22 *H 0.50-2.00 MMOL/L Calcium Level 9.4 8.5-10.1 MG/DL Total Bilirubin 0.5 0.1-1.0 MG/DL Aspartate Amino Transf (AST/SGOT) 31 5-34 U/L Alanine Aminotransferase (ALT/SGPT) 28 0-55 U/L Alkaline Phosphatase 62 40-136 U/L Troponin I < 0.30 <0.30 NG/ML Total Protein 6.8 6.4-8.2 GM/DL Albumin 4.0 3.2-4.5 GM/DL Urine Color ORIANA H Urine Clarity CLEAR Urine pH 5 5-9 Urine Specific [place] 1.025 H 1.016-1.022 Urine Protein 2+ H NEGATIVE Urine Glucose (UA) NEGATIVE NEGATIVE Urine Ketones 1+ H NEGATIVE Urine Nitrite POSITIVE H NEGATIVE Urine Bilirubin 2+ H NEGATIVE Urine Urobilinogen 4 H NORMAL MG/DL Urine Leukocyte Esterase 1+ H NEGATIVE Urine RBC (Auto) NEGATIVE NEGATIVE Urine RBC NONE /HPF Urine WBC 0-2 /HPF Urine Squamous Epithelial Cells NONE /HPF Urine Crystals NONE /LPF Urine Bacteria NEGATIVE /HPF Urine Casts PRESENT /LPF Urine Hyaline Casts >50 H /LPF Urine Mucus NEGATIVE /LPF Urine Culture Indicated YES Urine Opiates Screen NEGATIVE NEGATIVE Urine Oxycodone Screen NEGATIVE NEGATIVE Urine Methadone Screen NEGATIVE NEGATIVE Urine Propoxyphene Screen NEGATIVE NEGATIVE Urine Barbiturates Screen NEGATIVE NEGATIVE Ur Tricyclic Antidepressants Screen NEGATIVE NEGATIVE Urine Phencyclidine Screen NEGATIVE NEGATIVE Urine Amphetamines Screen NEGATIVE NEGATIVE Urine Methamphetamines Screen POSITIVE H NEGATIVE Urine Benzodiazepines Screen NEGATIVE NEGATIVE Urine Cocaine Screen NEGATIVE NEGATIVE Urine Cannabinoids Screen NEGATIVE NEGATIVE Test 05/16/17 21:55 05/17/17 03:49 Range/Units White Blood Count 6.5 6.1 4.3-11.0 10^3/uL Red Blood Count 4.60 4.61 4.35-5.85 10^6/uL Hemoglobin 12.3 L 12.4 L 13.3-17.7 G/DL Hematocrit 39 L 39 L 40-54 % Mean Corpuscular Volume 85 85 80-99 FL Mean Corpuscular Hemoglobin 27 27 25-34 PG Mean Corpuscular Hemoglobin Concent 32 32 32-36 G/DL Red Cell Distribution Width 13.2 13.2 10.0-14.5 % Platelet Count 264 252 130-400 10^3/uL Mean Platelet Volume 8.5 8.6 7.4-10.4 FL Neutrophils (%) (Auto) 55 56 42-75 % Lymphocytes (%) (Auto) 31 27 12-44 % Monocytes (%) (Auto) 10 11 0-12 % Eosinophils (%) (Auto) 3 6 0-10 % Basophils (%) (Auto) 1 1 0-10 % Neutrophils # (Auto) 3.6 3.4 1.8-7.8 X 10^3 Lymphocytes # (Auto) 2.1 1.7 1.0-4.0 X 10^3 Monocytes # (Auto) 0.6 0.7 0.0-1.0 X 10^3 Eosinophils # (Auto) 0.2 0.3 0.0-0.3 10^3/uL Basophils # (Auto) 0.0 0.0 0.0-0.1 10^3/uL Lactic Acid Level 1.77 0.50-2.00 MMOL/L Sodium Level 141 135-145 MMOL/L Potassium Level 3.9 3.6-5.0 MMOL/L Chloride Level 105 98-107 MMOL/L Carbon Dioxide Level 26 21-32 MMOL/L Anion Gap 10 5-14 MMOL/L Blood Urea Nitrogen 10 7-18 MG/DL Creatinine 0.88 0.60-1.30 MG/DL Estimat Glomerular Filtration Rate > 60 BUN/Creatinine Ratio 11 Glucose Level 113 H 70-105 MG/DL Calcium Level 8.7 8.5-10.1 MG/DL Phosphorus Level 3.4 2.3-4.7 MG/DL Magnesium Level 1.9 1.8-2.4 MG/DL Urine was positive for nitrites and leukocyte esterase. Lactic acid was high at 3.63 at 15:54 and 2.22 at 18:01 on 05/16. Lactic acid has dropped into normal range at 1.77 on 05/17. Radiology Chest X-ray on 05/16 at 17:56 and 05/17 at 06:21 showed no acute abnormalities and stable chest. Physical Exam-([facility]) Physical Exam Vital Signs VS - Last 72 Hours, by Label 05/16/17 05/16/17 05/16/17 05/16/17 15:56 16:39 18:16 18:50 Temp 99.0 98.4 Pulse 123 123 99 100 Resp 18 18 18 18 B/P (MAP) 96/63 111/88 121/70 Pulse Ox 94 94 96 O2 Delivery Room Air Room Air Room Air 05/16/17 05/16/17 05/16/17 05/16/17 19:48 20:00 20:15 21:00 Temp 98.6 98.7 Pulse 86 79 Resp 18 20 B/P (MAP) 104/55 115/73 115/73 Pulse Ox 94 96 O2 Delivery Room Air Room Air Room Air 05/16/17 05/16/17 05/16/17 05/17/17 22:00 22:04 23:58 00:00 Temp 99.0 Pulse 79 Resp 20 B/P (MAP) 137/114 Pulse Ox 95 92 O2 Delivery Room Air Room Air Room Air Room Air 05/17/17 05/17/17 05/17/17 05/17/17 00:00 01:00 01:00 02:00 Pulse 79 69 80 85 Resp 20 14 15 B/P (MAP) 125/72 131/0 136/91 Pulse Ox 92 94 95 O2 Delivery Room Air Room Air Room Air 05/17/17 05/17/17 05/17/17 05/17/17 03:00 04:00 04:00 04:23 Temp 98.4 Pulse 70 69 Resp 12 16 B/P (MAP) 106/91 115/79 Pulse Ox 90 92 94 O2 Delivery Room Air Room Air Room Air Room Air 05/17/17 05/17/17 05/17/17 05/17/17 05:00 06:00 07:00 08:00 Temp 97.3 Pulse 73 77 96 Resp 10 15 B/P (MAP) 109/81 116/66 Pulse Ox 97 93 O2 Delivery Room Air Room Air Room Air Capillary Refill : Less Than 3 Seconds Temperature (Fahrenheit): 97.3 General Appearance: WD/WN, no apparent distress Respiratory: chest non-tender, lungs clear, normal breath sounds, no respiratory distress, no accessory muscle use Cardiovascular: regular rate, rhythm, no murmur Peripheral Pulses: 2+ Dorsalis Pedis (R), 2+ Left Dors-Pedis (L) Gastrointestinal: normal bowel sounds, soft, no pulsatile mass Neurologic/Psychiatric: alert, normal mood/affect, oriented x 3 Skin: normal color, warm/dry Assessment/Plan Assessment/Plan Admission Dx 1. Urinary tract infection 2. DMII 3. HTN Plan 1. Urinary tract infection - Narrow antibiotics from vancomycin and Pip/Tazo to Rocephin for urinary tract infection - Pending culture return, may change antibiotics to culture sensitive drug. - No longer in severe sepsis according to lactic acid level and SERS criteria. Will be moved to in-patient until urine cultures are returned. 2. DMII -Resume metformin. Monitor lactic acid level to determine the rise was not due to metformin. 3. HTN - Monitor blood pressure Diagnosis/Problems: Clinical Quality Measures DVT/VTE Risk/Contraindication: Risk Factor Score Per Nursin RFS Level Per Nursing on Admit: 4+=Very High Copy Copies To 1: LIZZIE Granger BETHANY N MD 05/17/17 3:15pm: HPI History of Present Illness: Patient presented to ER after a rather acute onset of weakness and feeling as if he would pass out. He was trying to have a bowel movement and felt as if he would pass out. On arrival at the ER, he was found to have markedly low blood pressure and elevated lactic acid. His blood pressure improved in the ER after fluid bolus. Home Medications Allergies Coded Allergies: No Known Drug Allergies (Unverified , 05/01/17) AGT-Lrmidd-Tpesra Hx Family Medical History Significant Family History: Heart Disease, Cancer (ovarian), Diabetes, Hypertension [facility] Physical Exam Vital Signs VS - Last 72 Hours, by Label 05/16/17 05/16/17 05/16/17 05/16/17 15:56 16:39 18:16 18:50 Temp 99.0 98.4 Pulse 123 123 99 100 Resp 18 18 18 18 B/P (MAP) 96/63 111/88 121/70 Pulse Ox 94 94 96 O2 Delivery Room Air Room Air Room Air 05/16/17 05/16/17 05/16/17 05/16/17 19:48 20:00 20:15 21:00 Temp 98.6 98.7 Pulse 86 79 Resp 18 20 B/P (MAP) 104/55 115/73 115/73 Pulse Ox 94 96 O2 Delivery Room Air Room Air Room Air 05/16/17 05/16/17 05/16/17 05/17/17 22:00 22:04 23:58 00:00 Temp 99.0 Pulse 79 Resp 20 B/P (MAP) 137/114 Pulse Ox 95 92 O2 Delivery Room Air Room Air Room Air Room Air 05/17/17 05/17/17 05/17/17 05/17/17 00:00 01:00 01:00 02:00 Pulse 79 69 80 85 Resp 20 14 15 B/P (MAP) 125/72 131/0 136/91 Pulse Ox 92 94 95 O2 Delivery Room Air Room Air Room Air 05/17/17 05/17/17 05/17/17 05/17/17 03:00 04:00 04:00 04:23 Temp 98.4 Pulse 70 69 Resp 12 16 B/P (MAP) 106/91 115/79 Pulse Ox 90 92 94 O2 Delivery Room Air Room Air Room Air Room Air 05/17/17 05/17/17 05/17/17 05/17/17 05:00 06:00 07:00 08:00 Temp 97.3 Pulse 73 77 96 Resp 10 15 B/P (MAP) 109/81 116/66 Pulse Ox 97 93 O2 Delivery Room Air Room Air Room Air 05/17/17 12:00 Temp 98.2 O2 Delivery Room Air Assessment/Plan Assessment/Plan Admission Dx Hypotension, lactic acidosis Plan 62 yo male admitted with hypotension and lactic acidosis and likely UTI, but without clear sepsis with on 1/ SIRS criteria. (Afebrile, normal white blood cell count, no tachypnea- only SIRS criteria was tachycardia) Suspect hypotension may have been secondary to volume depletion in combination with vasovagal reaction leading to presyncope, lactic acidosis secondary to hypotension versus combination of hypotension and metformin. His blood pressure improved with IVF in ER and lactic acidosis also resolved. Regardless, as a caution, he was placed in ICU and started on severe sepsis protocol with triple antibiotic therapy given at time of admission unknown source of infection. Appears at this time that UTI may be source and with marked improvement in blood pressure, lactic acid and normal vitals and labs otherwise, will narrow antibiotics and transfer to floor. Hold home blood pressure medications for now. He reports he has outpatient testing on Friday to follow up on his splenic artery aneurysm and pancreatic mass. (CT abdomen 03/2017 showed concern for 16 mm splenic aneurysm and rounded density in pancreas as well as thickening of sigmoid colon which has since been evaluated with EGD/colonoscopy by Dr. Chaudhry) Diagnosis/Problems: Copy Copies To 1: LIZZIE Granger MARY K STUDENT May 17, 2017 12:16 pm NILAM WILKERSON MD May 17, 2017 3:15 pm
[2017-05-17] MEDS ORDERED: NS IV 1000 ML 1,000 ML IV SCH (13:00)
[2017-05-17] MEDS ORDERED: RT-ALBUTEROL HFA (VENTOLIN) PER PUFF IH PRN ×2 (14:00→18:30)
[2017-05-17] MEDS ORDERED: TIOT18CA2 IH (14:08)
[2017-05-17] MEDS ORDERED: MILN50TA PO (14:08)
[2017-05-17] MEDS ORDERED: ESOM20CA37 PO (14:08)
[2017-05-17] MEDS ORDERED: ONDA4TAB11 PO (14:09)
[2017-05-17] MEDS ORDERED: RT-ALBUTEROL SULF 2.5 MG/3 ML PRE-MIX VIAL IH PRN (15:00)
[2017-05-17] MEDS: metFORMIN 500 MG (GLUCOPHAGE) TAB PO SCH (17:27)
[2017-05-17] MEDS: SUCRALFATE 1 GM (CARAFATE) TAB PO SCH ×2 (17:28→20:46)
[2017-05-17] MEDS ORDERED: cefTRIAXone INJECTION 1,000 MG in NS (IVPB) 50 ML IV SCH (18:30)
[2017-05-17] MEDS ORDERED: NS (IVPB) 50 ML ONE (18:48)
[2017-05-17] MEDS ORDERED: cefTRIAXone 1 GM (ROCEPHIN) VIAL ONE (18:48)
[2017-05-17] MEDS ORDERED: TROUGH ORDER-PHARMACY XX NR (19:00)
[2017-05-17] MEDS ORDERED: RT-ADVAIR HFA 115/21 MCG PER PUFF IH ONE (20:27)
[2017-05-17] MEDS: GABAPENTIN 600 MG (NEURONTIN) TAB PO SCH (20:46)
[2017-05-17] MEDS ORDERED: MILNACIPRAN HCL 50 MG PO SCH (21:00)
[2017-05-17] MEDS ORDERED: traZODone 50 MG (DESYREL) TAB PO SCH (21:00)
[2017-05-17] MEDS ORDERED: NON-FORMULARY MEDICATION 1 EA EA (Pravastatin Sodium 40 MG) PO SCH (21:00)
[2017-05-17] MEDS ORDERED: traZODone 150 MG (DESYREL) TABLET ONE (21:33)
[2017-05-17] MEDS ORDERED: ENOXAPARIN 40 MG/0.4 ML (LOVENOX) SYR SC SCH (22:30)
[2017-05-18] VITALS: BP 115/81
[2017-05-18] MEDS: NS IV 1000 ML 1,000 ML IV SCH ×2 (02:18→10:24)
[2017-05-18 04:00] VITALS: BP 114/78
[2017-05-18] MEDS: PANTOPRAZOLE 40 MG (PROTONIX) TAB PO SCH (06:08)
[2017-05-18] MEDS: metFORMIN 500 MG (GLUCOPHAGE) TAB PO SCH (06:08)
[2017-05-18 06:41] LABS: MEAN PLATELET VOLUME 8.8 FL (7.4-10.4); RED BLOOD COUNT 4.62 10^6/uL (4.35-5.85); RED CELL DISTRIBUTION WIDTH 13.6 % (10.0-14.5); WHITE BLOOD COUNT 5.2 10^3/uL (4.3-11.0)
[2017-05-18 07:08] LABS: ANION GAP 9 MMOL/L (5-14); BLOOD UREA NITROGEN 4 MG/DL (7-18); BUN/CREATININE RATIO 5; CARBON DIOXIDE 26 MMOL/L (21-32); CHLORIDE 107 MMOL/L (98-107); CREATININE SERUM 0.77 MG/DL (0.60-1.30); POTASSIUM 3.4 MMOL/L (3.6-5.0); SODIUM 142 MMOL/L (135-145)
[2017-05-18 07:09] LABS: CALCIUM 8.7 MG/DL (8.5-10.1); GFR ESTIMATED > 60; GLUCOSE 106 MG/DL (70-105)
[2017-05-18 08:00] VITALS: BP 119/67
[2017-05-18] MEDS ORDERED: RT-ADVAIR HFA 115/21 MCG PER PUFF IH SCH (08:00)
[2017-05-18] MEDS ORDERED: UMECLIDINIUM BROMIDE (INCRUSE ELLIPTA) 7'S IH SCH (08:00)
[2017-05-18] MEDS: SUCRALFATE 1 GM (CARAFATE) TAB PO SCH ×2 (08:56→13:19)
[2017-05-18] MEDS: GABAPENTIN 600 MG (NEURONTIN) TAB PO SCH ×2 (08:56→13:19)
[2017-05-18] MEDS ORDERED: NON-FORMULARY MEDICATION 1 EA EA (Fluticasone/Vilanterol (Breo Ellipta 100-25 Mcg INH) 1 E IH SCH ×2 (09:00)
[2017-05-18] MEDS ORDERED: KCL 20 MEQ TAB (K-DUR) PO NR (10:00)
[2017-05-18 12:00] VITALS: BP 118/78
[2017-05-18] MEDS ORDERED: CEFD300C3 PO (13:50)
--- NOTE | 2017-05-18 13:53 | Discharge Instructions ---
Discharge Inst-[facility] Discharge Medications New, Converted or Re-Newed RX: Transmitted to Pharmacy New Medications: Cefdinir (Cefdinir) 300 Mg Capsule 300 MG PO BID, #10 CAP Continued Medications: Albuterol Sulfate (Ventolin Hfa) 18 Gm Hfa.aer.ad 1-2 PUFF IH QID, INHALER Esomeprazole Magnesium (Esomeprazole Magnesium) 20 Mg Capsule.dr 20 MG PO DAILY, CAP Fluticasone/Vilanterol (Breo Ellipta 100-25 Mcg INH) 1 Each Blst.w.dev 1 EACH IH DAILY Gabapentin (Gabapentin) 600 Mg Tablet 600 MG PO TID, TAB Lisinopril (Lisinopril) 10 Mg Tablet 10 MG PO DAILY, TAB Metformin Hcl (Metformin 1000 Mg) 1,000 Mg Tablet 1 EACH PO BID WITH MEALS Milnacipran HCl (Savella) 50 Mg Tablet 50 MG PO BID, TAB [place]-3/Dha/Epa/Fish Oil (Fish Oil 1,000 Mg Ec Softgel) 1 Each Capsule.dr 2 EACH PO DAILY Ondansetron (Ondansetron Odt) 4 Mg Tab.rapdis 4 MG PO Q8H, TAB Pravastatin Sodium (Pravastatin Sodium) 40 Mg Tablet 40 MG PO HS, TAB Sucralfate (Carafate) 1 Gm Tablet 1 GM PO QID, TAB Tiotropium [place] (Spiriva) 1 Inh Aerp 1 INH IH DAILY, INHALER Trazodone Hcl (Trazodone Hcl) 150 Mg Tablet 150 MG PO HS Discontinued Medications: Amlodipine Besylate (Norvasc) 10 Mg Tablet 10 MG PO DAILY, TAB Hydrochlorothiazide (Hydrochlorothiazide) 12.5 Mg Tablet 12.5 MG PO DAILY, TAB Patient Instructions Goal/Follow Up Appt: Someone will call you on Friday with a follow-up appointment at [facility]. Patient Instructions: Stop taking amlodipine and hydrochlorothiazide for right now due to low blood pressure and dehydration. Check your blood pressure at home, and if above 140/90, restart first amlodipine and then hydrochlorothiazide. Otherwise, talk to Jeremy at your follow-up visit about when to restart. Activity & Diet Discharge Diet: ADA Diet Activity as Tolerated: Yes Copy Copies To 1: LIZZIE Granger BETHANY N MD May 18, 2017 13:53
--- NOTE | 2017-05-18 13:55 | Discharge Summary ---
Diagnosis/Chief Complaint Date of Admission May 16, 2017 at 6:05 pm Date of Discharge May 18, 2017 Admission Diagnosis Admission Diagnosis Hypotension Lactic acidosis UTI Suspected sepsis Splenic artery aneurysm Pancreatic mass Discharge Diagnosis Hypotension hypotension and lactic acidosis and likely UTI, but without clear sepsis with on 1/4 SIRS criteria. (Afebrile, normal white blood cell count, no tachypnea- only SIRS criteria was tachycardia) Suspect hypotension may have been secondary to volume depletion in combination with vasovagal reaction leading to presyncope On d/c held amlodipine and hydrochlorothiazide as BP remained low normal, will need to follow-up to determine when to restart medications Lactic acidosis lactic acidosis secondary to hypotension versus combination of hypotension and metformin. His blood pressure improved with IVF in ER and lactic acidosis also resolved UTI UA suggestive but culture negative, treat empirically given severity of hypotension, complete 7 day course of cefdinir Suspected sepsis hypotension and lactic acidosis and likely UTI, but without clear sepsis with on 1/4 SIRS criteria. (Afebrile, normal white blood cell count, no tachypnea- only SIRS criteria was tachycardia) as a caution, he was placed in ICU and started on severe sepsis protocol with triple antibiotic therapy given at time of admission unknown source of infection , however he rapidly improved and was transferred to floor and narrowed antibiotics to ceftriaxone Splenic artery aneurysm Pancreatic mass He reports he has outpatient testing on Friday to follow up on his splenic artery aneurysm and pancreatic mass. (CT abdomen 03/2017 showed concern for 16 mm splenic aneurysm and rounded density in pancreas as well as thickening of sigmoid colon which has since been evaluated with EGD/colonoscopy by Dr. Chaudhry) Chief Complaint/HPI Chief Complaint/HPI Patient presented to ER after a rather acute onset of weakness and feeling as if he would pass out. He was trying to have a bowel movement and felt as if he would pass out. On arrival at the ER, he was found to have markedly low blood pressure and elevated lactic acid. His blood pressure improved in the ER after fluid bolus. Discharge Summary-Simple/Stand Consultations Discharge Physical Examination Allergies: Coded Allergies: No Known Drug Allergies (Unverified , 05/01/17) Vitals & I&Os Vital Sign - Last 12Hours Date Time Temp Pulse Resp B/P (MAP) Pulse Ox O2 Delivery O2 Flow Rate FiO2 05/18/17 08:00 94 Nasal Cannula 1.00 05/18/17 08:00 98.3 90 20 119/67 Intake and Output 05/18/17 00:00 Intake Total 700 ml Output Total 2250 ml Balance -1550 ml General Appearance: Alert, No Acute Distress Respiratory: Clear to Auscultation, Normal Air Movement Cardiovascular: Regular Rate, No Murmurs Neuro: Normal Speech Psych/Mental Status: Mental Status NL Hospital Course See final discharge diagnosis. Labs Laboratory Tests Test 05/16/17 15:54 05/16/17 17:47 05/16/17 18:01 05/16/17 21:55 Range/Units White Blood Count 9.2 6.5 4.3-11.0 10^3/uL Red Blood Count 5.16 4.60 4.35-5.85 10^6/uL Hemoglobin 13.9 12.3 L 13.3-17.7 G/DL Hematocrit 43 39 L 40-54 % Mean Corpuscular Volume 84 85 80-99 FL Mean Corpuscular Hemoglobin 27 27 25-34 PG Mean Corpuscular Hemoglobin Concent 32 32 32-36 G/DL Red Cell Distribution Width 13.2 13.2 10.0-14.5 % Platelet Count 324 264 130-400 10^3/uL Mean Platelet Volume 8.7 8.5 7.4-10.4 FL Neutrophils (%) (Auto) 76 H 55 42-75 % Lymphocytes (%) (Auto) 13 31 12-44 % Monocytes (%) (Auto) 9 10 0-12 % Eosinophils (%) (Auto) 2 3 0-10 % Basophils (%) (Auto) 0 1 0-10 % Neutrophils # (Auto) 7.0 3.6 1.8-7.8 X 10^3 Lymphocytes # (Auto) 1.2 2.1 1.0-4.0 X 10^3 Monocytes # (Auto) 0.8 0.6 0.0-1.0 X 10^3 Eosinophils # (Auto) 0.2 0.2 0.0-0.3 10^3/uL Basophils # (Auto) 0.0 0.0 0.0-0.1 10^3/uL Sodium Level 137 135-145 MMOL/L Potassium Level 4.1 3.6-5.0 MMOL/L Chloride Level 101 98-107 MMOL/L Carbon Dioxide Level 25 21-32 MMOL/L Anion Gap 11 5-14 MMOL/L Blood Urea Nitrogen 13 7-18 MG/DL Creatinine 1.23 0.60-1.30 MG/DL Estimat Glomerular Filtration Rate 60 BUN/Creatinine Ratio 11 Glucose Level 154 H 70-105 MG/DL Lactic Acid Level 3.63 *H 2.22 *H 1.77 0.50-2.00 MMOL/L Calcium Level 9.4 8.5-10.1 MG/DL Total Bilirubin 0.5 0.1-1.0 MG/DL Aspartate Amino Transf (AST/SGOT) 31 5-34 U/L Alanine Aminotransferase (ALT/SGPT) 28 0-55 U/L Alkaline Phosphatase 62 40-136 U/L Troponin I < 0.30 <0.30 NG/ML Total Protein 6.8 6.4-8.2 GM/DL Albumin 4.0 3.2-4.5 GM/DL Urine Color ORIANA H Urine Clarity CLEAR Urine pH 5 5-9 Urine Specific [place] 1.025 H 1.016-1.022 Urine Protein 2+ H NEGATIVE Urine Glucose (UA) NEGATIVE NEGATIVE Urine Ketones 1+ H NEGATIVE Urine Nitrite POSITIVE H NEGATIVE Urine Bilirubin 2+ H NEGATIVE Urine Urobilinogen 4 H NORMAL MG/DL Urine Leukocyte Esterase 1+ H NEGATIVE Urine RBC (Auto) NEGATIVE NEGATIVE Urine RBC NONE /HPF Urine WBC 0-2 /HPF Urine Squamous Epithelial Cells NONE /HPF Urine Crystals NONE /LPF Urine Bacteria NEGATIVE /HPF Urine Casts PRESENT /LPF Urine Hyaline Casts >50 H /LPF Urine Mucus NEGATIVE /LPF Urine Culture Indicated YES Urine Opiates Screen NEGATIVE NEGATIVE Urine Oxycodone Screen NEGATIVE NEGATIVE Urine Methadone Screen NEGATIVE NEGATIVE Urine Propoxyphene Screen NEGATIVE NEGATIVE Urine Barbiturates Screen NEGATIVE NEGATIVE Ur Tricyclic Antidepressants Screen NEGATIVE NEGATIVE Urine Phencyclidine Screen NEGATIVE NEGATIVE Urine Amphetamines Screen NEGATIVE NEGATIVE Urine Methamphetamines Screen POSITIVE H NEGATIVE Urine Benzodiazepines Screen NEGATIVE NEGATIVE Urine Cocaine Screen NEGATIVE NEGATIVE Urine Cannabinoids Screen NEGATIVE NEGATIVE Test 05/17/17 03:49 05/18/17 05:42 Range/Units White Blood Count 6.1 5.2 4.3-11.0 10^3/uL Red Blood Count 4.61 4.62 4.35-5.85 10^6/uL Hemoglobin 12.4 L 12.5 L 13.3-17.7 G/DL Hematocrit 39 L 40 40-54 % Mean Corpuscular Volume 85 86 80-99 FL Mean Corpuscular Hemoglobin 27 27 25-34 PG Mean Corpuscular Hemoglobin Concent 32 31 L 32-36 G/DL Red Cell Distribution Width 13.2 13.6 10.0-14.5 % Platelet Count 252 270 130-400 10^3/uL Mean Platelet Volume 8.6 8.8 7.4-10.4 FL Neutrophils (%) (Auto) 56 42-75 % Lymphocytes (%) (Auto) 27 12-44 % Monocytes (%) (Auto) 11 0-12 % Eosinophils (%) (Auto) 6 0-10 % Basophils (%) (Auto) 1 0-10 % Neutrophils # (Auto) 3.4 1.8-7.8 X 10^3 Lymphocytes # (Auto) 1.7 1.0-4.0 X 10^3 Monocytes # (Auto) 0.7 0.0-1.0 X 10^3 Eosinophils # (Auto) 0.3 0.0-0.3 10^3/uL Basophils # (Auto) 0.0 0.0-0.1 10^3/uL Sodium Level 141 142 135-145 MMOL/L Potassium Level 3.9 3.4 L 3.6-5.0 MMOL/L Chloride Level 105 107 98-107 MMOL/L Carbon Dioxide Level 26 26 21-32 MMOL/L Anion Gap 10 9 5-14 MMOL/L Blood Urea Nitrogen 10 4 L 7-18 MG/DL Creatinine 0.88 0.77 0.60-1.30 MG/DL Estimat Glomerular Filtration Rate > 60 > 60 BUN/Creatinine Ratio 11 5 Glucose Level 113 H 106 H 70-105 MG/DL Calcium Level 8.7 8.7 8.5-10.1 MG/DL Phosphorus Level 3.4 2.3-4.7 MG/DL Magnesium Level 1.9 1.8-2.4 MG/DL Radiology Reviewed Discharge Instructions to patient/family Please see electonic discharge instructions given to patient. Discharge Medications Reviewed and agree with Discharge Medication list on patient's Discharge Instruction sheet Clinical Quality Measures DVT/VTE Risk/Contraindication: Risk Factor Score Per Nursin RFS Level Per Nursing on Admit: 4+=Very High Copy Copies To 1: LIZZIE Granger BETHANY N MD May 18, 2017 1:55 pm
[2017-05-18 14:25] VITALS: BP 119/67
[2017-05-18] MEDS ORDERED: traZODone 150 MG (DESYREL) TABLET PO SCH (21:00)
[2017-05-18] MEDS ORDERED: SIMvastatin 20 MG (ZOCOR) TAB PO SCH (21:00)
--- OUTSIDE RECORDS SUMMARY | 2017-05-20 07:49 | XMS REPORT | Continuity of Care Document ---
Author Author [facility] Organization [facility] Address Unknown Phone Unavailable Allergies Active Description Code Type Severity Reaction Onset Reported/Identified Relationship to Patient Clinical Status Yes No Known Drug Allergies [id number] Drug Allergy Mild N/A 04/16/2008 Yes No Known Drug Allergies [id number] Drug Allergy Unknown N/ A 05/01/2017 Medications [...] 08/22/2015 DORI ANAYA MD Ot Z79.899 OTHER CO FOUNDER AND CTO (CURRENT) DRUG THERAPY 09/14/2015 SANFORD BOLAND MD [...] FACP CCDS Ot I10 09/15/[address] [facility], ALI FACP CCDS Ot R06.09 09/15/[address] [facility], ALI FACP CCDS Ot R07.89 09/15/2015 [...] OBSTRUCTIVE SLEEP APNEA (ADULT) ( PEDIATR 11/28/2015 JOSEI GURROLA APRN Ot I10 ESSENTIAL (PRIMARY) HYPERTENSION [...] ALI FACP CCDS Ot R07.89 12/01/2015 SANFORD BOLADN MD Ot E11.9 12/05/2015 KYA MUNIZ, SANFORD [...] FACP CCDS Ot R07.89 12/05/[address] [facility], ALI FACP CCDS Ot E11.9 12/05/[address] [facility], ALI FACP CCDS Ot E66.01 12/05/[address] [facility], ALI FACP CCDS Ot E78.4 12/05/[address] [facility], ALI FACP CCDS Ot I10 12/05/[address] [facility], ALI FACP CCDS Ot R06.09 12/05/[address] [facility], ALI FACP CCDS Ot R07.89 12/05/2015 JOSIE GURROLA PACKAGER HAND Ot G47.19 12/05/2015 JOSIE GURROLA E PACKAGER HAND Ot R06.09 12/05/2015 IZABELA JOSIE E PACKAGER HAND Ot R06.83 12/11/2015 IZABELA JOSIE E PACKAGER HAND Ot G47.19 12/11/2015 NADIR GURROLAINE E PACKAGER HAND Ot R06.09 12/11/2015 JOSIE GURROLA E PACKAGER HAND Ot R06.83 12/27/2015 KYA MUNIZ, SANFORD L Ot E11.9 12/27/[address] [facility], ALI FACP CCDS Ot E11.9 12/27/[address] [facility], ALI FACP CCDS Ot E66.01 12/27/[address] [facility], ALI FACP CCDS Ot E78.4 12/27/2015 RAYA MUNIZ [facility], ALI FACP CCDS Ot I10 12/27/[address] [facility], ALI FACP CCDS Ot R06.09 12/27/2015 [...] FACP CCDS Ot R07.89 01/15/2016 JOSIE GURROLA PACKAGER HAND Ot G47.19 01/15/2016 JOSIE GURROLA PACKAGER HAND Ot R06.09 01/15/2016 JOSIE GURROLA PACKAGER HAND Ot R06.83 01/16/2016 JOSIE GURROLA APRN Ot G47.33 OBSTRUCTIVE SLEEP APNEA (ADULT) ( PEDIATR 01/16/2016 JOSIE GURROLA PACKAGER HAND Ot I10 ESSENTIAL (PRIMARY) HYPERTENSION 01/19/2016 KYA MUNIZ, SANFORD Ho Ot E11.9 01/19/2016 KYA MUNIZ, SAN[place]ORD Ho Ot E11.9 01/19/2016 RAYA MUNIZ FACC, ELISABETH FACP CCDS Ot E11.9 01/19/2016 RAYA MUNIZ FACC, ALI FACP CCDS Ot E66.01 01/19/2016 RAAY MUNIZ FACC, ALI FACP CCDS Ot E78.4 [...] CCDS Ot R07.89 01/19/2016 IZABELA, JOSIE E PACKAGER HAND Ot G47.19 01/19/2016 IZABELA, JOSIE E PACKAGER HAND Ot R06.09 01/19/2016 IZABELA, JOSIE E PACKAGER HAND Ot R06.83 01/23/2016 ALEXIS HOOVER MD ([facility]) Ot J44.9 01/23/2016 ALEXIS HOOVER MD ([facility]) Ot Z02.71 02/03/2016 IZBAELA, JOSIE E PACKAGER HAND Ot G47.33 02/03/2016 IZABELA, JOSIE E PACKAGER HAND Ot I10 03/04/2016 IZABELA, JOSIE E PACKAGER HAND Ot G47.19 OTHER HYPERSOMNIA 03/04/2016 IZABELA, JOSIE E PACKAGER HAND Ot R06.09 OTHER FORMS OF DYSPNEA 03/04/2016 IZABELA, JOSIE E PACKAGER HAND Ot R06.83 SNORING 03/04/2016 IZABELA, JOSIE E PACKAGER HAND Ot F17.201 NICOTINE DEPENDENCE, UNSPECIFIED, IN REM 03/04/2016 IZABELA, JOSIE E PACKAGER HAND Ot J44.9 CHRONIC OBSTRUCTIVE PULMONARY DISEASE , U 03/04/2016 IZABELA, JOSIE E PACKAGER HAND Ot J45.909 UNSPECIFIED ASTHMA, UNCOMPLICATED 04/15/2016 IZABELA, JOSIE E PACKAGER HAND Ot G47.19 OTHER HYPERSOMNIA 04/15/2016 IZABELA, JOSIE E PACKAGER HAND Ot R06.09 OTHER FORMS OF DYSPNEA 04/15/2016 IZABELA, JOSIE E PACKAGER HAND Ot R06.83 SNORING 04/15/2016 IZABELA, JOSIE E PACKAGER HAND Ot F17.201 NICOTINE DEPENDENCE, UNSPECIFIED, IN REM 04/15/2016 IZABELA, JOSIE E PACKAGER HAND Ot J44.9 CHRONIC OBSTRUCTIVE PULMONARY DISEASE , U 04/15/2016 IZABELA, JOSIE E PACKAGER HAND Ot J45.909 UNSPECIFIED ASTHMA, UNCOMPLICATED 04/16/2016 IZABELA, JOSIE E PACKAGER HAND Ot G47.19 OTHER HYPERSOMNIA 04/16/2016 IZABELA, JOSIE E PACKAGER HAND Ot R06.09 OTHER FORMS OF DYSPNEA 04/16/2016 IZABELA, JOSIE E PACKAGER HAND Ot R06.83 SNORING 04/16/2016 IZABELA, JOSIE E PACKAGER HAND Ot F17.201 NICOTINE DEPENDENCE, UNSPECIFIED, IN REM [...] DIABETES MELLITUS WITHOUT COMPLIC 03/22/[address] [facility], ALI FACP CCDS Ot E66.01 MORBID [...] I10 ESSENTIAL (PRIMARY) HYPERTENSION 03/22/[address] [facility], ALI FACP CCDS Ot R06.09 OTHER FORMS OF DYSPNEA 03/22/[address] [facility], ALI FACP CCDS Ot R07.89 OTHER CHEST PAIN 03/22/2017 JOSIE GURROLA APRN Ot G47.19 OTHER HYPERSOMNIA 03/22/2017 JOSIE GURROLA PACKAGER HAND Ot R06.09 OTHER FORMS OF DYSPNEA 03/22/2017 JOSIE GURROLA PACKAGER HAND Ot R06.83 SNORING 03/22/2017 ALEXIS HOOVER MD ([facility]) Ot J44.9 CHRONIC OBSTRUCTIVE PULMONARY DISEASE, U 03/22/2017 ALEXIS HOOVER MD ([facility]) Ot Z02.71 ENCOUNTER FOR DISABILITY DETERMINATION 03/22/2017 NIKI AKINS PACKAGER HAND Ot M54.41 LUMBAGO WITH SCIATICA, RIGHT SIDE 03/22/2017 NIKI AKINS PACKAGER HAND Ot M54.42 LUMBAGO WITH SCIATICA, LEFT SIDE 03/22/2017 NIKI AKINS PACKAGER HAND Ot M54.6 PAIN IN THORACIC SPINE 03/22/2017 NIKI AKINS PACKAGER HAND Ot M54.41 LUMBAGO WITH SCIATICA, RIGHT SIDE [...] OF PANCREAS, UNSPECIFIED 03/22/2017 DAO MICHAELS SHARIFA Sharp Ot Z79.82 [employer] FOUNDER AND CTO (CURRENT) USE OF ASPIRIN 03/22/2017 DAO MICHAELS SHARIFA Sharp Ot Z79.84 CO FOUNDER AND CTO (CURRENT) USE OF ORAL HYPOGLYC 03/22/2017 DAO MICHAELS SHAIRFA Sharp Ot Z79.899 OTHER CO FOUNDER AND CTO (CURRENT) DRUG THERAPY 03/22/2017 DAO MICHAELS SHARIFA [...] FORMS OF DYSPNEA 03/22/2017 RAYA MUNIZ FACC, [facility] FACP CCDS Ot R07.89 OTHER CHEST PAIN 03/22/2017 RAYA MUNIZ FACC, ALI FACP CCDS Ot E11.9 TYPE 2 DIABETES MELLITUS WITHOUT COMPLIC 03/22/2017 RAYA MUNIZ FACC, ALI FACP CCDS Ot E66.01 MORBID (SEVERE) OBESITY DUE TO EXCESS CA 03/22/2017 RAYA MUNIZ FACC, ALI FACP CCDS Ot E78.4 OTHER HYPERLIPIDEMIA 03/22/2017 RAYA TY, ALI FACP CCDS Ot I10 ESSENTIAL (PRIMARY) HYPERTENSION 03/22/[address] [facility], ALI FACP CCDS Ot R06.09 OTHER [...] ENCOUNTER FOR DISABILITY DETERMINATION 03/22/2017 NIKI AKINS PACKAGER HAND Ot M54.41 LUMBAGO WITH SCIATICA, RIGHT SIDE 03/22/2017 NIKI AKINS PACKAGER HAND Ot M54.42 LUMBAGO WITH SCIATICA, LEFT SIDE 03/22/2017 NIKI AKINS PACKAGER HAND Ot M54.6 PAIN IN THORACIC SPINE 03/22/2017 NIKI AKINS PACKAGER HAND Ot M54.41 LUMBAGO WITH SCIATICA, RIGHT SIDE [...] UNSPECIFIED 03/24/2017 DAO SHARIFA MICHAELS Ot Z79.82 S[facility]IOR LIVING (CURRENT) USE OF ASPIRIN 03/24/2017 DAO SHARIFA MICHAELS Ot Z79.84 CO FOUNDER AND CTO (CURRENT) USE OF ORAL HYPOGLYC 03/24/2017 DAO SHARIFA MICHAELS Ot Z79.899 OTHER CO FOUNDER AND CTO (CURRENT) DRUG THERAPY 03/24/2017 DAO SHARIFA MICHAELS [...] STRIKE 04/10/2017 SHARIFA DC DO Ot Y92.[address] [facility] [address] [facility] (PRIVATE 04/10/2017 SHARIFA DC DO Ot Y99.8 OTHER EXTERNAL CAUSE STATUS 04/10/2017 SHARIFA DC DO, Ot Z79.82 [employer] FOUNDER AND CTO (CURRENT) USE OF ASPIRIN 04/10/2017 SHARIFA DC DO Ot Z79.84 [facility]IVING (CURRENT) USE OF ORAL HYPOGLYC 04/10/2017 SHARIFA DC DO Ot Z79.899 OTHER SENIOR LIVING (CURRENT) DRUG THERAPY 04/10/2017 KYA MUNIZ, SANFORD oH Ot E11.9 TYPE 2 DIABETES MELLITUS WITHOUT [...] WITH SCIATICA, RIGHT SIDE 04/10/2017 NIKI AKINS PACKAGER HAND Ot M54.42 LUMBAGO WITH SCIATICA, LEFT SIDE 04/10/2017 NIKI AKINS PACKAGER HAND Ot M54.6 PAIN IN THORACIC SPINE 04/10/2017 [...] 04/13/2017 DAO MICHAELS SHARIFA Aron Ot Y92.[address] [facility] [address] IN [facility] (PRIVATE 04/13/2017 DAO MICHAELS SHARIFA Aron Ot Y99.8 OTHER EXTERNAL CAUSE STATUS 04/13/2017 DAO MICHAELS SHARIFA Aron Ot Z79.82 S[facility] LIVING (CURRENT) USE OF ASPIRIN 04/13/2017 SHARIFA DC DO Ot Z79.84 [facility]IVING (CURRENT) USE OF ORAL HYPOGLYC 04/13/2017 SHARIFA DC DO Ot Z79.899 OTHER SENIOR LIVING (CURRENT) DRUG THERAPY 04/23/2017 SANFORD BOLAND MD [...] I10 ESSENTIAL (PRIMARY) HYPERTENSION 04/23/[address] [facility], ALI FACP CCDS Ot R06.09 OTHER [...] STRIKE 04/23/2017 SHARIFA DC DO Ot Y92.[address] [facility] [address] IN [facility] (PRIVATE 04/23/2017 SHARIFA DC DO Ot Y99.8 OTHER EXTERNAL CAUSE STATUS 04/23/2017 SHARIFA DC DO Ot Z79.82 [employer] F[employer]ER AND CTO (CURRENT) USE OF ASPIRIN 04/23/2017 SHARIFA DC DO Ot Z79.84 CO FOUNDER AND CTO (CURRENT) USE OF ORAL HYPOGLYC 04/23/2017 SHARIFA DC DO Ot Z79.899 OTHER CO FOUNDER AND CTO (CURRENT) DRUG THERAPY 04/23/2017 NIKI AKINS APRN Ot M54.41 LUMBAGO WITH SCIATICA, RIGHT SIDE 04/23/2017 NIKI AKINS PACKAGER HAND Ot M54.42 LUMBAGO WITH SCIATICA, LEFT SIDE 04/23/2017 NIKI AKINS PACKAGER HAND Ot M54.6 PAIN IN THORACIC SPINE 04/24/2017 NIKI AKINS PACKAGER HAND Ot M54.41 LUMBAGO WITH SCIATICA, RIGHT SIDE 04/24/2017 NIKI AKINS PACKAGER HAND Ot M54.42 LUMBAGO WITH SCIATICA, LEFT SIDE 04/24/2017 NIKI AKINS PACKAGER HAND Ot M54.6 PAIN IN THORACIC SPINE 04/28/2017 [...] R07.89 OTHER CHEST PAIN 04/28/2017 JOSIE GURROLA PACKAGER HAND Ot G47.19 OTHER HYPERSOMNIA 04/28/2017 JOSIE GURROLA PACKAGER HAND Ot R06.09 OTHER FORMS OF DYSPNEA 04/28/2017 JOSIE GURROLA PACKAGER HAND Ot R06.83 SNORING 04/28/2017 ALEXIS HOOVER MD ([facility]) Ot J44.9 CHRONIC OBSTRUCTIVE PULMONARY DISEASE, U 04/28/2017 ALEXIS HOOVER MD ([facility]) Ot Z02.71 ENCOUNTER FOR DISABILITY DETERMINATION 04/28/2017 NIKI AKINS APRN Ot M54.41 LUMBAGO WITH SCIATICA, RIGHT SIDE 04/28/2017 NIKI AKINS APRN Ot M54.42 LUMBAGO WITH SCIATICA, LEFT SIDE 04/28/2017 NIKI AKINS PACKAGER HAND Ot M54.6 PAIN IN THORACIC SPINE 04/28/2017 NIKI AKINS PACKAGER HAND Ot M54.41 LUMBAGO WITH SCIATICA, RIGHT SIDE 05/01/2017 ANILA LAWRENCE DO Ot K21.9 GASTRO-ESOPHAGEAL REFLUX DISEASE WITHOUT 05/01/2017 ANILA LAWRENCE DO Ot Z01.818 ENCOUNTER FOR OTHER PREPROCEDURAL EXAMIN 05/01/2017 ANILA LAWRENCE DO Ot Z83.79 FAMILY HISTORY OF OTHER DISEASES OF THE 05/06/2017 JOSIE GURROLA PACKAGER HAND Ot G47.19 OTHER HYPERSOMNIA 05/06/2017 JOSIE GURROLA PACKAGER HAND Ot R06.09 OTHER FORMS OF DYSPNEA 05/06/2017 JOSIE GURROLA PACKAGER HAND Ot R06.83 SNORING 05/06/2017 JOSIE GURROLA PACKAGER HAND Ot F17.201 NICOTINE DEPENDENCE, UNSPECIFIED, IN REM 05/06/2017 JOSIE GURROLA APRN Ot J44.9 CHRONIC OBSTRUCTIVE PULMONARY DISEASE , U 05/06/2017 JOSIE GURROLA PACKAGER HAND Ot J45.909 UNSPECIFIED ASTHMA, UNCOMPLICATED 05/06/2017 ANILA LAWRENCE DO Ot R07.9 CHEST PAIN, UNSPECIFIED 05/06/2017 ANILA LAWRENCE DO Ot Z01.818 ENCOUNTER FOR OTHER PREPROCEDURAL EXAMIN 05/06/2017 ANILA LAWRENCE DO Ot Z86.010 PERSONAL HISTORY OF COLONIC POLYPS 05/06/2017 NIKI AKINS PACKAGER HAND Ot M54.41 LUMBAGO WITH SCIATICA, RIGHT SIDE 05/06/2017 NIKI AKINS PACKAGER HAND Ot M54.42 LUMBAGO WITH SCIATICA, LEFT SIDE 05/06/2017 NIKI AKINS PACKAGER HAND Ot M54.6 PAIN IN THORACIC SPINE 05/06/2017 JOSIE GURROLA PACKAGER HAND Ot G47.19 OTHER HYPERSOMNIA 05/06/2017 JOSIE GURROLA PACKAGER HAND Ot R06.09 OTHER FORMS OF DYSPNEA 05/06/2017 JOSIE GURROLA PACKAGER HAND Ot R06.83 SNORING 05/06/2017 JOSIE GURROLA PACKAGER HAND Ot F17.201 NICOTINE DEPENDENCE, UNSPECIFIED, IN REM 05/06/2017 JOSIE GURROLA APRN Ot J44.9 CHRONIC OBSTRUCTIVE PULMONARY DISEASE , U 05/06/2017 JOSIE GURROLA APRN Ot J45.909 UNSPECIFIED ASTHMA, UNCOMPLICATED 05/06/2017 ANILA LAWRENCE DO Ot R07.9 CHEST PAIN, UNSPECIFIED 05/06/2017 ANILA LAWRENCE DO Ot Z01.818 ENCOUNTER FOR OTHER PREPROCEDURAL EXAMIN 05/06/2017 ANILA LAWRENCE DO Ot Z86.010 PERSONAL HISTORY OF COLONIC POLYPS 05/06/2017 NIKI AKINS APRN Ot M54.41 LUMBAGO WITH SCIATICA, RIGHT SIDE 05/06/2017 NIKI AKINS PACKAGER HAND Ot M54.42 LUMBAGO WITH SCIATICA, LEFT SIDE 05/06/2017 NIKI AKINS APRN Ot M54.6 PAIN IN THORACIC SPINE 05/06/2017 ANILA LAWRENCE DO Ot D12.8 BENIGN NEOPLASM OF RECTUM 05/06/2017 ANILA LAWRENCE DO Ot E11.9 TYPE 2 DIABETES MELLITUS WITHOUT COMPLIC 05/06/2017 ANILA LAWRENCE DO Ot G47.30 SLEEP APNEA, UNSPECIFIED 05/06/2017 ANILA LAWRENCE DO Ot I10 ESSENTIAL (PRIMARY) HYPERTENSION 05/06/2017 ANILA LAWRENCE DO Ot J44.9 CHRONIC OBSTRUCTIVE PULMONARY DISEASE, U 05/06/2017 ANILA LAWRENCE DO Ot J45.909 UNSPECIFIED ASTHMA, UNCOMPLICATED 05/06/2017 ANILA LAWRENCE DO Ot K21.9 GASTRO-ESOPHAGEAL REFLUX DISEASE WITHOUT 05/06/2017 ANILA LAWRENCE DO Ot K26.9 DUODENAL ULCER, UNSP ACUTE OR CHRONIC 05/06/2017 ANILA LAWRENCE DO Ot K29.70 GASTRITIS, UNSPECIFIED, WITHOUT BLEEDING 05/06/2017 ANILA LAWRENCE DO Ot K29.80 DUODENITIS WITHOUT BLEEDING 05/06/2017 ANILA LAWRENCE DO Ot K44.9 DIAPHRAGMATIC HERNIA WITHOUT OBSTRUCTION 05/06/2017 ANILA LAWRENCE DO Ot K57.30 DVRTCLOS OF LG INT W/O PERFORATION OR AB 05/06/2017 ANILA LAWRENCE DO Ot K59.00 CONSTIPATION, UNSPECIFIED 05/06/2017 ANILA LAWRENCE DO Ot K62.1 RECTAL POLYP 05/06/2017 ANILA LAWRENCE DO Ot Z79.84 [facility]IVING (CURRENT) USE OF ORAL HYPOGLYC 05/06/2017 ANILA LAWRENCE DO Ot Z79.899 OTHER SENIOR LIVING (CURRENT) DRUG THERAPY 05/08/2017 NIKI AKINS APRN Ot M54.41 LUMBAGO WITH SCIATICA, RIGHT SIDE 05/08/2017 NIKI AKINS APRN Ot M54.42 LUMBAGO WITH SCIATICA, LEFT SIDE 05/08/2017 NIKI AKINS APRN Ot M54.6 PAIN IN THORACIC SPINE 05/13/2017 ANILA LAWRENCE DO Ot D12.8 BENIGN NEOPLASM OF RECTUM 05/13/2017 ANILA LAWRENCE DO Ot E11.9 TYPE 2 DIABETES MELLITUS WITHOUT COMPLIC 05/13/2017 ANILA LAWRENCE DO Ot G47.30 SLEEP APNEA, UNSPECIFIED 05/13/2017 ANILA LAWRENCE DO Ot I10 ESSENTIAL (PRIMARY) HYPERTENSION 05/13/2017 ANILA LAWRENCE DO Ot J44.9 CHRONIC OBSTRUCTIVE PULMONARY DISEASE, U 05/13/2017 ANILA LAWRENCE DO Ot J45.909 UNSPECIFIED ASTHMA, UNCOMPLICATED 05/13/2017 ANILA LAWRENCE DO Ot K21.9 GASTRO-ESOPHAGEAL REFLUX DISEASE WITHOUT 05/13/2017 ANILA LAWRENCE DO Ot K26.9 DUODENAL ULCER, UNSP ACUTE OR CHRONIC 05/13/2017 ANILA LAWRENCE DO Ot K29.70 GASTRITIS, UNSPECIFIED, WITHOUT BLEEDING 05/13/2017 ANILA LAWRENCE DO Ot K29.80 DUODENITIS WITHOUT BLEEDING 05/13/2017 ANILA LAWRENCE DO Ot K44.9 DIAPHRAGMATIC HERNIA WITHOUT OBSTRUCTION 05/13/2017 ANILA LAWRENCE DO Ot K57.30 DVRTCLOS OF LG INT W/O PERFORATION OR AB 05/13/2017 ANILA LAWRENCE DO Ot K59.00 CONSTIPATION, UNSPECIFIED 05/13/2017 ANILA LAWRENCE DO Ot K62.1 RECTAL POLYP 05/13/2017 ANILA LAWRENCE DO Ot Z79.84 CO FOUNDER AND CTO (CURRENT) USE OF ORAL HYPOGLYC 05/13/2017 ANILA LAWRENCE DO Ot Z79.899 OTHER SENIOR LIVING (CURRENT) DRUG THERAPY 05/16/2017 KYA MUNIZ, [place]FORD Ho Ot E11.9 TYPE 2 DIABETES MELLITUS WITHOUT COMPLIC 05/16/2017 SANFORD BOLAND MD Ot E11.9 TYPE 2 DIABETES MELLITUS WITHOUT COMPLIC 05/16/2017 RAYA MUNIZ FACC, ALI FACP CCDS Ot E11.9 TYPE 2 DIABETES MELLITUS WITHOUT COMPLIC 05/16/2017 RAYA MUNIZ FACC, ALI FACP CCDS Ot E66.01 MORBID (SEVERE) OBESITY DUE TO EXCESS CA 05/16/2017 RAYA MUNIZ FACC, ALI FACP CCDS Ot E78.4 OTHER HYPERLIPIDEMIA 05/16/2017 RAYA MUNIZ FACC, ALI FACP CCDS Ot I10 ESSENTIAL (PRIMARY) HYPERTENSION 05/16/2017 RAYA MUNIZ FACC, ALI FACP CCDS Ot R06.09 OTHER FORMS OF DYSPNEA 05/16/2017 RAYA MUNIZ FACC, ALI FACP CCDS Ot R07.89 OTHER CHEST PAIN 05/16/2017 RAYA MUNIZ FACC, ALI FACP CCDS Ot E11.9 TYPE 2 DIABETES MELLITUS WITHOUT COMPLIC 05/16/2017 RAYA MUNIZ FACC, ALI FACP CCDS Ot E66.01 MORBID (SEVERE) OBESITY DUE TO EXCESS CA 05/16/2017 RAYA MUNIZ FACC, ALI FACP CCDS Ot E78.4 OTHER HYPERLIPIDEMIA 05/16/2017 RAYA MUNIZ FAC, ALI FACP CCDS Ot I10 ESSENTIAL (PRIMARY) HYPERTENSION 05/16/2017 RAYA MUNIZ FACC, ALI FACP CCDS Ot R06.09 OTHER FORMS OF DYSPNEA 05/16/2017 RAYA MUNIZ FACC, ALI FACP CCDS Ot R07.89 OTHER CHEST PAIN 05/16/2017 JOSIE GURROLA PACKAGER HAND Ot G47.19 OTHER HYPERSOMNIA 05/16/2017 JOSIE GURROLA PACKAGER HAND Ot R06.09 OTHER FORMS OF DYSPNEA 05/16/2017 JOSIE GURROLA PACKAGER HAND Ot R06.83 SNORING 05/16/2017 ALEXIS HOOVER MD ([facility]) Ot J44.9 CHRONIC OBSTRUCTIVE PULMONARY DISEASE, U 05/16/2017 ALEXIS HOOVER MD ([facility]) Ot Z02.71 ENCOUNTER FOR DISABILITY DETERMINATION 05/16/2017 NIKI AKINS APRN Ot M54.41 LUMBAGO WITH SCIATICA, RIGHT SIDE 05/16/2017 AKINSNIKI Aubrie PACKAGER HAND Ot M54.42 LUMBAGO WITH SCIATICA, LEFT SIDE 05/16/2017 NIKI AKINS APRN Ot M54.6 PAIN IN THORACIC SPINE 05/16/2017 AKINS, NIKI Alfred APRN Ot M54.41 LUMBAGO WITH SCIATICA, RIGHT SIDE Procedures Encounters ACCT No. Visit Date/Time Discharge Status Pt. Type Provider Facility Loc./Unit Complaint [id number] 05/06/2017 13:15:00 2016 16:13:00 DIS Outpatient ANILA LAWRENCE DO [facility] ENDO HX DIVERTICULITIS;GERD [id number] 05/01/2017 06:29:00 2016 15:27:00 DIS Outpatient ANILA LAWRENCE DO [facility] PREOP HX DIVERTICULITIS; GERD [id number] 04/10/2017 21:05:00 2016 23:00:00 DIS Emergency SHARIFA DC DO [facility] ER FALL INJURY TO RIGHT LEG [id number] 03/22/2017 16:25:00 2016 19:59:00 DIS Emergency SHARIFA DC DO [facility] ER STOMACH ISSUES [id number] 04/23/2016 11:51:00 2015 15:13:00 DIS Outpatient ANILA LAWRENCE DO [facility] SDC CHEST PAIN, HX POLPYS [id number] 01/15/2016 20:17:00 2015 07:00:00 DIS Outpatient JOSIE GURROLA APRN [facility] SLEEP OBSTRUCTIVE SLEEP APNEA [id number] 11/27/2015 20:09:00 2015 06:25:00 DIS Outpatient JOSIE GURROLA APRN [facility] SLEEP OBSERVED APNEAS, SNORING, CHOKING/GASPIN DURING SL [id number] 09/25/2015 12:11:00 2014 23:59:59 CLS Outpatient RAYA MUNIZ FACC, ELISABETH WORTHINGTON CCDS [facility] CARD CHEST DISCOMFORT [id number] 09/14/2015 07:49:00 2014 23:59:59 CLS Outpatient RAYA MUNIZ FACC, ELISABETH [place] CCDS [facility] CARD CHEST DISCOMFORT [id number] 08/22/2015 07:05:00 2014 23:59:59 CLS Outpatient SANFORD BOLAND MD [facility] LABNPT ADD ON LAB [id number] 08/22/2015 07:05:00 2014 23:59:59 CLS Outpatient SANFORD BOLAND MD [facility] LABNPT DIABETES MELITIUS [id number] 08/22/2015 06:59:00 2014 08:28:00 DIS Emergency DORI ANAYA MD [facility] ER CP [id number] 01/28/2015 08:27:00 2014 10:05:00 DIS Emergency SHARIFA DC DO [facility] ER LEFT LEG PAIN [id number] 05/25/2013 17:25:00 2012 23:59:59 CLS Outpatient SANFORD BOLAND MD [facility] RAD [id number] 05/19/2017 08:45:00 PEN Preadmit NIKI AKINS APRN [facility] RAD E11.9 TYPE 2 DIABETES [id number] 05/16/2017 18:05:00 ACT Inpatient ROCK MUNIZ, NILAM Cadena [facility] 4TH SEPSIS [id number] 06/05/2016 12:59:00 ACT Outpatient NIKI AKINS PACKAGER HAND [facility] RAD SCIATIC NERVE PAIN [id number] 04/18/2016 05:37:00 ACT Outpatient ANILA LAWRENCE DO [facility] PREOP CHEST PAIN,HX POLPYS [id number] 04/16/2016 10:05:00 ACT Outpatient NIKI AKINS PACKAGER HAND [facility] RAD PAIN IN THORACIC SPINE,LUBAGO WITH SCIATICA [id number] 01/19/2016 11:25:00 ACT Outpatient KIKO MUNIZ, ALEXIS [place] (DDU) [facility] RT COPD [id number] 01/15/2016 09:09:00 ACT Outpatient JOSIE GURROLA APRN [facility] RAD COPD W/CHRONIC BRONCHITIS,ASTHMA [id number] 12/04/2015 14:23:00 ACT Outpatient JOSIE GURROLA APRN [facility] RT AVELAR, EXCESSIVE DATYIME SLEEPINESS, SNORING
--- OUTSIDE RECORDS SUMMARY | 2017-05-20 08:14 | XMS REPORT | Continuity of Care Document ---
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 09/14/2015 SANFORD BOLAND MD [...] FACP CCDS Ot I10 09/15/2015 RAYA MUNIZ [facility], ALI FACP CCDS Ot R06.09 09/15/2015 RAYA MUNIZ [facility], ALI FACP CCDS Ot R07.89 09/15/2015 KYA [...] TYC, ALI FACP CCDS Ot I10 12/01/2015 RYAA TYC, ALI FACP CCDS Ot R06.09 12/01/2015 [...] FACP CCDS Ot R07.89 12/05/2015 RAYA MUNIZ [facility], ALI FACP CCDS Ot E11.9 12/05/2015 RAYA MUNIZ [facility], ALI FACP CCDS Ot E66.01 12/05/2015 RAYA MUNIZ [facility], ALI FACP CCDS Ot E78.4 12/05/2015 RAYA MUNIZ [facility], ALI FACP CCDS Ot I10 12/05/2015 RAYA MUNIZ [facility], ALI FACP CCDS Ot R06.09 12/05/2015 RAYA MUNIZ [facility], ALI FACP CCDS Ot R07.89 12/05/2015 JOSIE GURROLA NURSE PRACTITIONER PHYSICIANS ASSISTANT Ot G47.19 12/05/2015 JOSIE GURROLA E NURSE PRACTITIONER PHYSICIANS ASSISTANT Ot R06.09 12/05/2015 IZABELA JOSIE E NURSE PRACTITIONER PHYSICIANS ASSISTANT Ot R06.83 12/11/2015 IZABELA JOSIE E NURSE PRACTITIONER PHYSICIANS ASSISTANT Ot G47.19 12/11/2015 NADIR GURROLAINE E NURSE PRACTITIONER PHYSICIANS ASSISTANT Ot R06.09 12/11/2015 JOSIE GURROLA E NURSE PRACTITIONER PHYSICIANS ASSISTANT Ot R06.83 12/27/2015 KYA MUNIZ, SANFORD L Ot E11.9 12/27/2015 RAYA MUNIZ [facility], ALI FACP CCDS Ot E11.9 12/27/2015 RAYA MUNIZ [facility], ALI FACP CCDS Ot E66.01 12/27/2015 RAYA MUNIZ [facility], ALI FACP CCDS Ot E78.4 12/27/2015 RAYA MUNIZ FAC, ALI FACP CCDS Ot I10 12/27/2015 RAYA MUNIZ [facility], ALI FACP CCDS Ot R06.09 12/27/2015 RAYA [...] FACP CCDS Ot R07.89 01/15/2016 JOSIE GURROLA NURSE PRACTITIONER PHYSICIANS ASSISTANT Ot G47.19 01/15/2016 JOSIE GURROLA NURSE PRACTITIONER PHYSICIANS ASSISTANT Ot R06.09 01/15/2016 JOSIE GURROLA NURSE PRACTITIONER PHYSICIANS ASSISTANT Ot R06.83 01/16/2016 JOSIE GURROLA APRN Ot G47.33 OBSTRUCTIVE SLEEP APNEA (ADULT) ( PEDIATR 01/16/2016 JOSIE GURROLA NURSE PRACTITIONER PHYSICIANS ASSISTANT Ot I10 ESSENTIAL (PRIMARY) HYPERTENSION 01/19/2016 KYA [...] ELISABETH TYP CCDS Ot R07.89 01/19/2016 IZABELA, JSOIE E NURSE PRACTITIONER PHYSICIANS ASSISTANT Ot G47.19 01/19/2016 IZABELA, JOSIE E NURSE PRACTITIONER PHYSICIANS ASSISTANT Ot R06.09 01/19/2016 IZABELA, JOSIE E NURSE PRACTITIONER PHYSICIANS ASSISTANT Ot R06.83 01/23/2016 ALEXIS HOOVER MD ([facility]) Ot J44.9 01/23/2016 ALEXIS HOOVER MD ([facility]) Ot Z02.71 02/03/2016 IZABELA, JOSIE E NURSE PRACTITIONER PHYSICIANS ASSISTANT Ot G47.33 02/03/2016 IZABELA, JOSIE E NURSE PRACTITIONER PHYSICIANS ASSISTANT Ot I10 03/04/2016 IZABELA, JOSIE E NURSE PRACTITIONER PHYSICIANS ASSISTANT Ot G47.19 OTHER HYPERSOMNIA 03/04/2016 IZABELA, JOSIE E NURSE PRACTITIONER PHYSICIANS ASSISTANT Ot R06.09 OTHER FORMS OF DYSPNEA 03/04/2016 IZABELA, JOSIE E NURSE PRACTITIONER PHYSICIANS ASSISTANT Ot R06.83 SNORING 03/04/2016 IZABELA, JOSIE E NURSE PRACTITIONER PHYSICIANS ASSISTANT Ot F17.201 NICOTINE DEPENDENCE, UNSPECIFIED, IN REM 03/04/2016 IZABELA, JOSIE E NURSE PRACTITIONER PHYSICIANS ASSISTANT Ot J44.9 CHRONIC OBSTRUCTIVE PULMONARY DISEASE , U 03/04/2016 IZABELA, JOSIE E NURSE PRACTITIONER PHYSICIANS ASSISTANT Ot J45.909 UNSPECIFIED ASTHMA, UNCOMPLICATED 04/15/2016 IZABELA, JOSIE E NURSE PRACTITIONER PHYSICIANS ASSISTANT Ot G47.19 OTHER HYPERSOMNIA 04/15/2016 IZABELA, JOSIE E NURSE PRACTITIONER PHYSICIANS ASSISTANT Ot R06.09 OTHER FORMS OF DYSPNEA 04/15/2016 IZABELA, JOSIE E NURSE PRACTITIONER PHYSICIANS ASSISTANT Ot R06.83 SNORING 04/15/2016 IZABELA, JOSIE E NURSE PRACTITIONER PHYSICIANS ASSISTANT Ot F17.201 NICOTINE DEPENDENCE, UNSPECIFIED, IN REM 04/15/2016 IZABELA, JOSIE E NURSE PRACTITIONER PHYSICIANS ASSISTANT Ot J44.9 CHRONIC OBSTRUCTIVE PULMONARY DISEASE , U 04/15/2016 IZABELA, JOSIE E NURSE PRACTITIONER PHYSICIANS ASSISTANT Ot J45.909 UNSPECIFIED ASTHMA, UNCOMPLICATED 04/16/2016 IZABELA, JOSIE E NURSE PRACTITIONER PHYSICIANS ASSISTANT Ot G47.19 OTHER HYPERSOMNIA 04/16/2016 IZABELA, JOSIE E NURSE PRACTITIONER PHYSICIANS ASSISTANT Ot R06.09 OTHER FORMS OF DYSPNEA 04/16/2016 IZABELA, JOSIE E NURSE PRACTITIONER PHYSICIANS ASSISTANT Ot R06.83 SNORING 04/16/2016 IZABELA, JOSIE E NURSE PRACTITIONER PHYSICIANS ASSISTANT Ot F17.201 NICOTINE DEPENDENCE, UNSPECIFIED, IN REM [...] DIABETES MELLITUS WITHOUT COMPLIC 03/22/2017 RAYA MUNIZ [facility], ALI FACP CCDS Ot E66.01 MORBID (SEVERE) [...] I10 ESSENTIAL (PRIMARY) HYPERTENSION 03/22/2017 RAYA MUNIZ [facility], ALI FACP CCDS Ot R06.09 OTHER FORMS OF DYSPNEA 03/22/2017 RAYA MUNIZ [facility], ALI FACP CCDS Ot R07.89 OTHER CHEST PAIN 03/22/2017 JOSIE GURROLA APRN Ot G47.19 OTHER HYPERSOMNIA 03/22/2017 JOSIE GURROLA NURSE PRACTITIONER PHYSICIANS ASSISTANT Ot R06.09 OTHER FORMS OF DYSPNEA 03/22/2017 JOSIE GURROLA NURSE PRACTITIONER PHYSICIANS ASSISTANT Ot R06.83 SNORING 03/22/2017 ALEXIS HOOVER MD ([facility]) Ot J44.9 CHRONIC OBSTRUCTIVE PULMONARY DISEASE, U 03/22/2017 ALEXIS HOOVER MD ([facility]) Ot Z02.71 ENCOUNTER FOR DISABILITY DETERMINATION 03/22/2017 NIKI AKINS NURSE PRACTITIONER PHYSICIANS ASSISTANT Ot M54.41 LUMBAGO WITH SCIATICA, RIGHT SIDE 03/22/2017 NIKI AKINS NURSE PRACTITIONER PHYSICIANS ASSISTANT Ot M54.42 LUMBAGO WITH SCIATICA, LEFT SIDE 03/22/2017 NIKI AKINS NURSE PRACTITIONER PHYSICIANS ASSISTANT Ot M54.6 PAIN IN THORACIC SPINE 03/22/2017 NIKI AKINS NURSE PRACTITIONER PHYSICIANS ASSISTANT Ot M54.41 LUMBAGO WITH SCIATICA, RIGHT SIDE [...] 03/22/2017 DAO MICHAELS SHARIFA Sharp Ot 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 03/22/2017 DAO MICHAELS SHARIFA Sharp Ot 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 03/22/2017 DAO MICHAELS SHARIFA Sharp Ot 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.899 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 THERAPY 03/22/2017 DAO MICHAELS SHARIFA [...] FORMS OF DYSPNEA 03/22/2017 RAYA MUNIZ FACC, [facility] FACP CCDS Ot R07.89 OTHER CHEST PAIN 03/22/2017 RAYA MUNIZ FACC, ALI FACP CCDS Ot E11.9 TYPE 2 DIABETES MELLITUS WITHOUT COMPLIC 03/22/2017 RAYA MUNIZ FACC, ALI FACP CCDS Ot E66.01 MORBID (SEVERE) OBESITY DUE TO EXCESS CA 03/22/2017 RAYA MUNIZ FACC, ALI FACP CCDS Ot E78.4 OTHER HYPERLIPIDEMIA 03/22/2017 RAYA TY, ALI FACP CCDS Ot I10 ESSENTIAL (PRIMARY) HYPERTENSION 03/22/2017 RAYA MUNIZ [facility], ALI FACP CCDS Ot R06.09 OTHER FORMS [...] ENCOUNTER FOR DISABILITY DETERMINATION 03/22/2017 NIKI AKINS NURSE PRACTITIONER PHYSICIANS ASSISTANT Ot M54.41 LUMBAGO WITH SCIATICA, RIGHT SIDE 03/22/2017 NIKI AKINS NURSE PRACTITIONER PHYSICIANS ASSISTANT Ot M54.42 LUMBAGO WITH SCIATICA, LEFT SIDE 03/22/2017 NIKI AKINS NURSE PRACTITIONER PHYSICIANS ASSISTANT Ot M54.6 PAIN IN THORACIC SPINE 03/22/2017 NIKI AKINS NURSE PRACTITIONER PHYSICIANS ASSISTANT Ot M54.41 LUMBAGO WITH SCIATICA, RIGHT SIDE [...] UNSPECIFIED 03/24/2017 DAO SHARIFA MICHAELS Ot Z79.82 MCC (CURRENT) USE OF ASPIRIN 03/24/2017 DAO SHARIFA MICHAELS Ot 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 03/24/2017 DAO SHARIFA MICHAELS Ot Z79.899 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 THERAPY 03/24/2017 DAO SHARIFA MICHAELS [...] STRIKE 04/10/2017 SHARIFA DC DO Ot Y92.[address] [facility] [address] IN [facility] (PRIVATE 04/10/2017 SHARIFA DC DO Ot Y99.8 OTHER EXTERNAL CAUSE STATUS 04/10/2017 SHARIFA DC DO, Ot 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 04/10/2017 SHARIFA DC DO Ot Z79.84 MCC (CURRENT) USE OF ORAL HYPOGLYC 04/10/2017 SHARIFA DC DO Ot Z79.899 OTHER MCC (CURRENT) DRUG THERAPY 04/10/2017 KYA MUNIZ, [place] [...] WITH SCIATICA, RIGHT SIDE 04/10/2017 NIKI AKINS NURSE PRACTITIONER PHYSICIANS ASSISTANT Ot M54.42 LUMBAGO WITH SCIATICA, LEFT SIDE 04/10/2017 NIKI AKINS NURSE PRACTITIONER PHYSICIANS ASSISTANT Ot M54.6 PAIN IN THORACIC SPINE 04/10/2017 [...] 04/13/2017 DAO MICHAELS SHARIFA Aron Ot Y92.[address] [facility] [address] IN [facility] (PRIVATE 04/13/2017 DAO MICHAELS SHARIFA Aron Ot Y99.8 OTHER EXTERNAL CAUSE STATUS 04/13/2017 DAO MICHAELS SHARIFA Aron Ot Z79.82 MCC (CURRENT) USE OF ASPIRIN 04/13/2017 SHARIFA DC DO Ot Z79.84 MCC (CURRENT) USE OF ORAL HYPOGLYC 04/13/2017 SHARIFA DC DO Ot Z79.899 OTHER MCC (CURRENT) DRUG THERAPY 04/23/2017 SANFORD BOLAND MD [...] I10 ESSENTIAL (PRIMARY) HYPERTENSION 04/23/2017 RAYA MUNIZ [facility], ALI FACP CCDS Ot R06.09 OTHER FORMS [...] STRIKE 04/23/2017 SHARIFA DC DO Ot Y92.[address] [facility] [address] IN [facility] (PRIVATE 04/23/2017 SHARIFA DC DO Ot Y99.8 OTHER EXTERNAL CAUSE STATUS 04/23/2017 SHARIFA DC DO Ot 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 04/23/2017 SHARIFA DC DO Ot 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 04/23/2017 SHARIFA DC DO Ot Z79.899 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 THERAPY 04/23/2017 NIKI AKINS APRN Ot M54.41 LUMBAGO WITH SCIATICA, RIGHT SIDE 04/23/2017 NIKI AKINS NURSE PRACTITIONER PHYSICIANS ASSISTANT Ot M54.42 LUMBAGO WITH SCIATICA, LEFT SIDE 04/23/2017 NIKI AKINS NURSE PRACTITIONER PHYSICIANS ASSISTANT Ot M54.6 PAIN IN THORACIC SPINE 04/24/2017 NIKI AKINS NURSE PRACTITIONER PHYSICIANS ASSISTANT Ot M54.41 LUMBAGO WITH SCIATICA, RIGHT SIDE 04/24/2017 NIKI AKINS NURSE PRACTITIONER PHYSICIANS ASSISTANT Ot M54.42 LUMBAGO WITH SCIATICA, LEFT SIDE 04/24/2017 NIKI AKINS NURSE PRACTITIONER PHYSICIANS ASSISTANT Ot M54.6 PAIN IN THORACIC SPINE 04/28/2017 [...] 2 DIABETES MELLITUS WITHOUT COMPLIC 04/28/2017 RAYA MUINZ FACC, ALI FACP CCDS Ot E66.01 MORBID [...] R07.89 OTHER CHEST PAIN 04/28/2017 JOSIE GURROLA NURSE PRACTITIONER PHYSICIANS ASSISTANT Ot G47.19 OTHER HYPERSOMNIA 04/28/2017 JOSIE GURROLA NURSE PRACTITIONER PHYSICIANS ASSISTANT Ot R06.09 OTHER FORMS OF DYSPNEA 04/28/2017 JOSIE GURROLA NURSE PRACTITIONER PHYSICIANS ASSISTANT Ot R06.83 SNORING 04/28/2017 ALEXIS HOOVER MD ([facility]) Ot J44.9 CHRONIC OBSTRUCTIVE PULMONARY DISEASE, U 04/28/2017 ALEXIS HOOVER MD ([facility]) Ot Z02.71 ENCOUNTER FOR DISABILITY DETERMINATION 04/28/2017 NIKI AKISN APRN Ot M54.41 LUMBAGO WITH SCIATICA, RIGHT SIDE 04/28/2017 NIKI AKINS APRN Ot M54.42 LUMBAGO WITH SCIATICA, LEFT SIDE 04/28/2017 NIKI AKINS NURSE PRACTITIONER PHYSICIANS ASSISTANT Ot M54.6 PAIN IN THORACIC SPINE 04/28/2017 NIIK AKINS NURSE PRACTITIONER PHYSICIANS ASSISTANT Ot M54.41 LUMBAGO WITH SCIATICA, RIGHT SIDE 05/01/2017 ANILA LAWRENCE DO Ot K21.9 GASTRO-ESOPHAGEAL REFLUX DISEASE WITHOUT 05/01/2017 ANILA LAWRENCE DO Ot Z01.818 ENCOUNTER FOR OTHER PREPROCEDURAL EXAMIN 05/01/2017 ANILA LAWRENCE DO Ot Z83.79 FAMILY HISTORY OF OTHER DISEASES OF THE 05/06/2017 OJSIE GURROLA NURSE PRACTITIONER PHYSICIANS ASSISTANT Ot G47.19 OTHER HYPERSOMNIA 05/06/2017 JOSIE GURROLA NURSE PRACTITIONER PHYSICIANS ASSISTANT Ot R06.09 OTHER FORMS OF DYSPNEA 05/06/2017 JOSIE GURROLA NURSE PRACTITIONER PHYSICIANS ASSISTANT Ot R06.83 SNORING 05/06/2017 JOSIE GURROLA NURSE PRACTITIONER PHYSICIANS ASSISTANT Ot F17.201 NICOTINE DEPENDENCE, UNSPECIFIED, IN REM 05/06/2017 JOSIE GURROLA APRN Ot J44.9 CHRONIC OBSTRUCTIVE PULMONARY DISEASE , U 05/06/2017 JOSIE GURROLA NURSE PRACTITIONER PHYSICIANS ASSISTANT Ot J45.909 UNSPECIFIED ASTHMA, UNCOMPLICATED 05/06/2017 ANILA LAWRENCE DO Ot R07.9 CHEST PAIN, UNSPECIFIED 05/06/2017 ANILA LAWRENCE DO Ot Z01.818 ENCOUNTER FOR OTHER PREPROCEDURAL EXAMIN 05/06/2017 ANILA LAWRENCE DO Ot Z86.010 PERSONAL HISTORY OF COLONIC POLYPS 05/06/2017 NIKI AKINS NURSE PRACTITIONER PHYSICIANS ASSISTANT Ot M54.41 LUMBAGO WITH SCIATICA, RIGHT SIDE 05/06/2017 NIKI AKINS NURSE PRACTITIONER PHYSICIANS ASSISTANT Ot M54.42 LUMBAGO WITH SCIATICA, LEFT SIDE 05/06/2017 NIKI AKINS NURSE PRACTITIONER PHYSICIANS ASSISTANT Ot M54.6 PAIN IN THORACIC SPINE 05/06/2017 JOSIE GURROLA NURSE PRACTITIONER PHYSICIANS ASSISTANT Ot G47.19 OTHER HYPERSOMNIA 05/06/2017 JOSIE GURROLA NURSE PRACTITIONER PHYSICIANS ASSISTANT Ot R06.09 OTHER FORMS OF DYSPNEA 05/06/2017 JOSIE GURROLA NURSE PRACTITIONER PHYSICIANS ASSISTANT Ot R06.83 SNORING 05/06/2017 JOSIE GURROLA NURSE PRACTITIONER PHYSICIANS ASSISTANT Ot F17.201 NICOTINE DEPENDENCE, UNSPECIFIED, IN REM [...] WITH SCIATICA, RIGHT SIDE 05/06/2017 NIKI AKINS NURSE PRACTITIONER PHYSICIANS ASSISTANT Ot M54.42 LUMBAGO WITH SCIATICA, LEFT SIDE [...] POLYP 05/06/2017 ANILA LAWRENCE DO Ot Z79.84 MCC (CURRENT) USE OF ORAL HYPOGLYC 05/06/2017 ANILA LAWRENCE DO Ot Z79.899 OTHER MCC (CURRENT) DRUG THERAPY 05/08/2017 NIKI AKINS APRN [...] POLYP 05/13/2017 ANILA LAWRENCE DO Ot 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 05/13/2017 ANILA LAWRENCE DO Ot Z79.899 OTHER MCC (CURRENT) DRUG THERAPY 05/16/2017 KYA MUNIZ, [facility] [...] TYPE 2 DIABETES MELLITUS WITHOUT COMPLIC 05/16/2017 RYAA MUNIZ FACC, ALI FACP CCDS Ot E66.01 [...] R07.89 OTHER CHEST PAIN 05/16/2017 JOSIE GURROLA NURSE PRACTITIONER PHYSICIANS ASSISTANT Ot G47.19 OTHER HYPERSOMNIA 05/16/2017 JOSIE GURROLA NURSE PRACTITIONER PHYSICIANS ASSISTANT Ot R06.09 OTHER FORMS OF DYSPNEA 05/16/2017 JOSIE GURROLA NURSE PRACTITIONER PHYSICIANS ASSISTANT Ot R06.83 SNORING 05/16/2017 ALEXIS HOOVER MD ([facility]) Ot J44.9 CHRONIC OBSTRUCTIVE PULMONARY DISEASE, U 05/16/2017 ALEXIS HOOVER MD ([facility]) Ot Z02.71 ENCOUNTER FOR DISABILITY DETERMINATION 05/16/2017 NIKI AKINS APRN Ot M54.41 LUMBAGO WITH SCIATICA, RIGHT SIDE 05/16/2017 AKINSNIKI Aubrie NURSE PRACTITIONER PHYSICIANS ASSISTANT Ot M54.42 LUMBAGO WITH SCIATICA, LEFT SIDE 05/16/2017 NIKI AKINS APRN Ot M54.6 PAIN IN THORACIC SPINE 05/16/2017 AKINS, NIKI Alfred APRN Ot M54.41 LUMBAGO WITH SCIATICA, RIGHT SIDE Procedures Encounters ACCT No. Visit Date/Time Discharge Status Pt. Type Provider Facility Loc./Unit Complaint [id number] 05/06/2017 13:15:00 2016 16:13:00 DIS Outpatient ANILA LAWRENCE DO [facility] ENDO HX DIVERTICULITIS;GERD [id number] 05/01/2017 06:29:00 2016 15:27:00 DIS Outpatient ANILA LAWRENCE DO [facility] PREOP HX DIVERTICULITIS; GERD [id number] 04/10/2017 21:05:00 2016 23:00:00 DIS Emergency SHARIFA DC DO [facility] ER FALL INJURY TO RIGHT LEG [id number] 03/22/2017 16:25:00 2016 19:59:00 DIS Emergency SHARIFA DC DO [facility] ER STOMACH ISSUES [id number] 04/23/2016 11:51:00 2015 15:13:00 DIS Outpatient ANILA LAWRENCE DO [facility] SDC CHEST PAIN, HX POLPYS [id number] 01/15/2016 20:17:00 2015 07:00:00 DIS Outpatient JOSIE GURROLA APRN [facility] SLEEP OBSTRUCTIVE SLEEP APNEA [id number] 11/27/2015 20:09:00 2015 06:25:00 DIS Outpatient JOSIE GURROLA APRN [facility] SLEEP OBSERVED APNEAS, SNORING, CHOKING/GASPIN DURING SL [id number] 09/25/2015 12:11:00 2014 23:59:59 CLS Outpatient RAYA MUNIZ FACC, ELISABETH [place]TH[place] CCDS [facility] CARD CHEST DISCOMFORT [id number] 09/14/2015 07:49:00 2014 23:59:59 CLS Outpatient RAYA MUNIZ FACC, ELISABETH [place] CCDS [facility] CARD CHEST DISCOMFORT [id number] 08/22/2015 07:05:00 2014 23:59:59 CLS Outpatient SANFORD BOLAND MD [facility] LABNPT ADD ON LAB [id number] 08/22/2015 07:05:00 2014 23:59:59 CLS Outpatient SANFORD BOLAND MD [facility] LABNPT DIABETES MELITIUS [id number] 08/22/2015 06:59:00 2014 08:28:00 DIS Emergency DORI ANAYA MD [facility] ER CP [id number] 01/28/2015 08:27:00 2014 10:05:00 DIS Emergency SHARIFA DC DO [facility] ER LEFT LEG PAIN [id number] 05/25/2013 17:25:00 2012 23:59:59 CLS Outpatient SANFORD BOLAND MD [facility] RAD [id number] 05/19/2017 08:45:00 PEN Preadmit NIKI AKINS APRN [facility] RAD E11.9 TYPE 2 DIABETES [id number] 05/16/2017 18:05:00 ACT Inpatient ROCK MUNIZ, NILAM Cadena [facility] 4TH SEPSIS [id number] 06/05/2016 12:59:00 ACT Outpatient NIKI AKINS NURSE PRACTITIONER PHYSICIANS ASSISTANT [facility] RAD SCIATIC NERVE PAIN [id number] 04/18/2016 05:37:00 ACT Outpatient ANILA LAWRENCE DO [facility] PREOP CHEST PAIN,HX POLPYS [id number] 04/16/2016 10:05:00 ACT Outpatient NIKI AKINS NURSE PRACTITIONER PHYSICIANS ASSISTANT [facility] RAD PAIN IN THORACIC SPINE,LUBAGO WITH SCIATICA [id number] 01/19/2016 11:25:00 ACT Outpatient KIKO MUNIZ, ALEXIS [place]o (DDU) [facility] RT COPD [id number] 01/15/2016 09:09:00 ACT Outpatient JOSIE GURROLA APRN [facility] RAD COPD W/CHRONIC BRONCHITIS,ASTHMA [id number] 12/04/2015 14:23:00 ACT Outpatient JOSIE GURROLA APRN [facility] RT AVELAR, EXCESSIVE DATYIME SLEEPINESS, SNORING
== END 2017-05-18 14:25 | disposition home or self-care (01) | DRG 690 ==
LOC: EDUNIT# 14:47 → ER 14:49 → 4TH 18:05 → ICU 20:13 → 4TH 05-17 17:55
PROVIDERS: ADMIT Family Medicine; ATTEND Family Medicine
DX: N39.0 Urinary tract infection, site not specified (principal); E87.2 Acidosis; I95.9 Hypotension, unspecified; E11.9 Type 2 diabetes mellitus without complications; I10 Essential (primary) hypertension; J44.9 Chronic obstructive pulmonary disease, unspecified; J45.909 Unspecified asthma, uncomplicated; G47.30 Sleep apnea, unspecified; E78.00 Pure hypercholesterolemia, unspecified; K21.9 Gastro-esophageal reflux disease without esophagitis; K86.9 Disease of pancreas, unspecified; I72.8 Aneurysm of other specified arteries
CPT/HCPCS: 36415; 51702; 71010; 80048; 80053; 80306; 81000; 82962; 83605; 83735; 84100; 84484; 85025; 85027; 87040; 87081; 87088; 94640; 94760; 96361; 96365

== ENCOUNTER → 2017-05-19 | Outpatient (CLI) | payer OTHER ==
[~2017-05-19] MED LIST changes: +CEFD300C3 PO; +ESOM20CA37 PO; +MILN50TA PO; -NAPR500T3 PO; +NAPR500T4 PO; +ONDA4TAB11 PO
[2017-05-19 08:31] LABS: ALANINE AMINOTRANSFERASE 20 U/L (0-55); ALBUMIN 3.5 GM/DL (3.2-4.5); ANION GAP 7 MMOL/L (5-14); ASPARTATE AMINO TRANSFERASE 21 U/L (5-34); BILIRUBIN,TOTAL 0.3 MG/DL (0.1-1.0); BLOOD UREA NITROGEN 10 MG/DL (7-18); BUN/CREATININE RATIO 9; CALCIUM 8.8 MG/DL (8.5-10.1); CARBON DIOXIDE 30 MMOL/L (21-32); CHLORIDE 107 MMOL/L (98-107); CREATININE SERUM 1.15 MG/DL (0.60-1.30); GFR ESTIMATED > 60; GLUCOSE 113 MG/DL (70-105); POTASSIUM 3.5 MMOL/L (3.6-5.0); SODIUM 144 MMOL/L (135-145); TOTAL PROTEIN 6.3 GM/DL (6.4-8.2)
== END ==
LOC: RAD 07:54
PROVIDERS: ATTEND Nurse Practitioner Family
DX: I72.8 Aneurysm of other specified arteries; K86.9 Disease of pancreas, unspecified; E11.9 Type 2 diabetes mellitus without complications
CPT/HCPCS: 36415; 80053

== ENCOUNTER → 2017-08-15 | Outpatient (CLI) | payer OTHER ==
[~2017-08-15] MED LIST changes: +GADOBUTROL 15 MMOL/15 ML (GADAVIST) VIAL IV ONE; +NAPR500T3 PO; -NAPR500T4 PO
[2017-08-15 08:09] LABS: ALANINE AMINOTRANSFERASE 23 U/L (0-55); ALBUMIN 3.9 GM/DL (3.2-4.5); ANION GAP 8 MMOL/L (5-14); ASPARTATE AMINO TRANSFERASE 26 U/L (5-34); BILIRUBIN,TOTAL 0.4 MG/DL (0.1-1.0); BLOOD UREA NITROGEN 15 MG/DL (7-18); BUN/CREATININE RATIO 15; CALCIUM 9.4 MG/DL (8.5-10.1); CARBON DIOXIDE 28 MMOL/L (21-32); CHLORIDE 104 MMOL/L (98-107); GFR ESTIMATED > 60; GLUCOSE 110 MG/DL (70-105); POTASSIUM 3.6 MMOL/L (3.6-5.0); SODIUM 140 MMOL/L (135-145)
--- NOTE | 2017-08-15 11:00 | Diagnostic Imaging Report ---
PROCEDURE: MR imaging abdomen with and without contrast. TECHNIQUE: Multiplanar, multisequence MR imaging of the abdomen was performed with and without contrast. INDICATION: Abdominal pain and nausea. Followup lesion seen in the pancreatic tail on CT scan from 03/22/2017. 12 mL of Gadavist is administered intravenously. FINDINGS: The pancreatic tail demonstrates a well defined soft tissue enhancing nodule measuring 1.6 x 1.8 x 1.5 cm. It appears to have signal intensity similar to the spleen on multiple sequences and similar pattern of enhancement suggestive of an intrapancreatic splenule. Near the splenic hilum, there is a hyperenhancing lesion measuring 1.5 x 1.6 x 1.7 cm near the splenic hilum. This is compatible with splenic artery branch aneurysm. When compared to CT scan of 03/22/2017, no significant change in size is seen. The liver, the spleen, and the adrenal glands otherwise appear unremarkable. The gallbladder has been surgically removed. The kidneys have symmetric enhancement and contrast excretion. There is normal caliber of the abdominal aorta seen. IMPRESSION: 1. Smoothly marginated nodule measuring 1.8 cm in the pancreatic tail with signal intensity in favor of an intrapancreatic splenule. 2. A 1.6 cm lesion near the splenic hilum is compatible with a splenic artery branch aneurysm. 3. Followup study in 6-[address] scan or MRI is recommended to ensure stability of the above mentioned nodule and aneurysm. Dictated by: Dictated on workstation # [id number]
== END ==
LOC: RAD 07:40
PROVIDERS: ATTEND Nurse Practitioner Family
DX: K86.89 Other specified diseases of pancreas (principal); D73.9 Disease of spleen, unspecified
CPT/HCPCS: 36415; 74183; 80053

== ENCOUNTER 2018-01-22 14:25 | Emergency (ER) | payer SELFPAY ==
[~2018-01-22] VITALS: Ht 175.3 cm; Wt 120.2 kg
[~2018-01-22 14:25] MED LIST changes: -GADOBUTROL 15 MMOL/15 ML (GADAVIST) VIAL IV ONE; +NAPR-915 PO; -NAPR500T3 PO
[2018-01-22] MEDS ORDERED: LACTATED RINGERS 1,000 ML IV ONE (14:51)
--- NOTE | 2018-01-22 14:55 | ED Cardiac General ---
History of Present Illness General Chief Complaint: Cardiac/General Problems Stated Complaint: LOW BLOOD PRESSURE LIGHTHEADED/DIZZY WEAK NAUSEA Nursing Triage Note: ARRIVED VIA AMB TO ROOM 07. STATES HE WOKE UP THIS AM AND HAD A NORMAL BP FOR HIM SO HE TOOK HIS BP MED. STATES AFTER LUNCH HE BECAME WEAK AND DIZZY AND HIS BP HAD DROOPED. DENIES CHEST PAIN. Source: patient Exam Limitations: no limitations History of Present Illness Date Seen by Provider: Jan 22, 2018 Time Seen by Provider: 14:45 Initial Comments Patient presents to ER by private conveyance with chief complaint that just prior to coming to the ER he was feeling a little lightheaded and dizzy like he could pass out but didn't quite. He says he had a loose stool today 1. No blood in it. No nausea or vomiting although he says he doesn't evidently get nausea. He says he just preceding his bowel movement and getting dizzy he had a cramp-like pain in his epigastric region that made him think he had to have a bowel movement. He says he's had his gallbladder out and polyps removed by colonoscopy. He's had hernia repair of his umbilicus. He's been told he has another hernia in his abdominal wall but they are not Benadryl anything about it right now. He's been actively trying to lose weight in the last year but no weight loss or change in the last 2 weeks. He does not have any swelling of his feet. He has no history of coronary artery disease or stroke. No seizure activity. He takes hydrochlorothiazide been on for a long time. Take another blood pressure medicines routinely. Allergies and Home Medications Allergies Coded Allergies: No Known Drug Allergies (Unverified , 05/01/17) Home Medications Albuterol Sulfate 18 Gm Hfa.aer.ad, 1-2 PUFF IH QID, (Reported) Cefdinir 300 Mg Capsule, 300 MG PO BID Prescribed by: NILAM WILKERSON on 05/18/17 1350 Esomeprazole Magnesium 20 Mg Capsule.dr, 20 MG PO DAILY, (Reported) Fluticasone/Vilanterol 1 Each Blst.w.dev, 1 EACH IH DAILY, (Reported) Gabapentin 600 Mg Tablet, 600 MG PO TID, (Reported) Lisinopril 10 Mg Tablet, 10 MG PO DAILY, (Reported) Metformin Hcl 1,000 Mg Tablet, 1 EACH PO BID WITH MEALS, (Reported) Milnacipran HCl 50 Mg Tablet, 50 MG PO BID, (Reported) Palmer-3/Dha/Epa/Fish Oil 1 Each Capsule.dr, 2 EACH PO DAILY, (Reported) Ondansetron 4 Mg Tab.rapdis, 4 MG PO Q8H, (Reported) Pravastatin Sodium 40 Mg Tablet, 40 MG PO HS, (Reported) Sucralfate 1 Gm Tablet, 1 GM PO QID, (Reported) Tiotropium [place] 1 Inh Aerp, 1 INH IH DAILY, (Reported) Trazodone Hcl 150 Mg Tablet, 150 MG PO HS, (Reported) Patient Home Medication List Home Medication List Reviewed: Yes Review of Systems Constitutional: No chills, No diaphoresis, No fever, No malaise EENTM: No Blurred Vision, No Double Vision, No Eye Pain Respiratory: Denies Cough, Denies Shortness of Air Cardiovascular: Denies Chest Pain, Denies Edema, Lightheadedness, Denies Palpitations, Denies Syncope Gastrointestinal: Denies Abdomen Distended, Denies Abdominal Pain, Nausea, Denies Vomiting Genitourinary: Denies Burning, Denies Discharge, Denies Drainage Musculoskeletal: No back pain, No joint pain Skin: No pruritus, No rash Psychiatric/Neurological: Denies Headache, Denies Numbness, Denies Paresthesia Past [id number]-[id number]-Vaoskc Hx Patient Social History Alcohol Use: Denies Use Recreational Drug Use: No Type Used: Cigarettes Former Smoker, Quit: May 01, 1999 2nd Hand Smoke Exposure: No Recent Foreign Travel: No Contact w/Someone Who Travel: No Recent Infectious Disease Expo: No Recent Hopitalizations: No Immunizations Up To Date Date of Pneumonia Vaccine: March 11, 2016 Seasonal Allergies Seasonal Allergies: Yes Surgeries History of Surgeries: Yes (HERNIA) Surgeries: Abdominal, Gallbladder, Tonsillectomy Respiratory History of Respiratory Disorde: Yes (2L NC AT NIGHT) Respiratory Disorders: Asthma, Sleep Apnea, COPD, Emphysema Currently Using CPAP: Yes Cardiovascular History of Cardiac Disorders: Yes Cardiac Disorders: High Cholesterol, Hypertension Neurological History of Neurological Disord: No Reproductive System Hx Reproductive Disorders: No Sexually Transmitted Disease: No HIV/AIDS: No Genitourinary History of Genitourinary Disor: No Gastrointestinal History of Gastrointestinal Di: Yes Gastrointestinal Disorders: Abdominal Hernia, Gastroesophageal Reflux, Diverticulosis, Hepatitis, Polyps, Irritable Bowel Musculoskeletal History of Musculoskeletal Dis: Yes (RIGHT SCIATICA--WALKS WITH CANE) Musculoskeletal Disorders: Degenerate Disk Disease, Arthritis, Chronic Back Pain Endocrine History of Endocrine Disorders: Yes (OBESITY) Endocrine Disorders: Diabetes, Non-Insulin dep HEENT History of HEENT Disorders: No Loss of Vision: Bilateral Hearing Impairment: Hearing Aide Right Cancer History of Cancer: No Psychosocial History of Psychiatric Problem: No Integumentary History of Skin or Integumenta: No Blood Transfusions History of Blood Disorders: No Adverse Reaction to a Blood Tr: No Family Medical History Significant Family History: Heart Disease, Cancer, Diabetes, Hypertension Physical Exam Vital Signs Vital Signs - First Documented 01/22/18 14:35 Temp 98.0 Pulse 128 Resp 18 B/P (MAP) 121/89 (100) Pulse Ox 95 Capillary Refill : Less Than 3 Seconds General Appearance: No Apparent Distress, Obese HEENT: PERRL/EOMI, Pharynx Normal Neck: Full Range of Motion, Non Tender, Supple Respiratory: Chest Non Tender, Lungs Clear, Normal Breath Sounds, No Accessory Muscle Use, No Respiratory Distress Cardiovascular: Regular Rate, Rhythm, Normal Peripheral Pulses Gastrointestinal: Normal Bowel Sounds, No Organomegaly, Non Tender, Soft Extremity: Normal Capillary Refill, Non Tender, No Calf Tenderness Neurologic/Psychiatric: Alert, Oriented x3, No Motor/Sensory Deficits, Normal Mood/Affect, pediatric urologist II-XII Norm as Tested Skin: Normal Color, Warm/Dry Progress/Results/Core Measures Results/Orders Lab Results Laboratory Tests Test 01/22/18 15:04 01/22/18 15:18 01/22/18 16:13 Range/Units White Blood Count 5.7 4.3-11.0 10^3/uL Red Blood Count 5.27 4.35-5.85 10^6/uL Hemoglobin 14.4 13.3-17.7 G/DL Hematocrit 44 40-54 % Mean Corpuscular Volume 83 80-99 FL Mean Corpuscular Hemoglobin 27 25-34 PG Mean Corpuscular Hemoglobin Concent 33 32-36 G/DL Red Cell Distribution Width 13.9 10.0-14.5 % Platelet Count 333 130-400 10^3/uL Mean Platelet Volume 8.3 7.4-10.4 FL Neutrophils (%) (Auto) 56 42-75 % Lymphocytes (%) (Auto) 31 12-44 % Monocytes (%) (Auto) 9 0-12 % Eosinophils (%) (Auto) 3 0-10 % Basophils (%) (Auto) 0 0-10 % Neutrophils # (Auto) 3.2 1.8-7.8 X 10^3 Lymphocytes # (Auto) 1.8 1.0-4.0 X 10^3 Monocytes # (Auto) 0.5 0.0-1.0 X 10^3 Eosinophils # (Auto) 0.2 0.0-0.3 10^3/uL Basophils # (Auto) 0.0 0.0-0.1 10^3/uL Sodium Level 138 135-145 MMOL/L Potassium Level 4.0 3.6-5.0 MMOL/L Chloride Level 103 98-107 MMOL/L Carbon Dioxide Level 26 21-32 MMOL/L Anion Gap 9 5-14 MMOL/L Blood Urea Nitrogen 15 7-18 MG/DL Creatinine 1.22 0.60-1.30 MG/DL Estimat Glomerular Filtration Rate 60 BUN/Creatinine Ratio 12 Glucose Level 150 H 70-105 MG/DL Calcium Level 9.3 8.5-10.1 MG/DL Magnesium Level 2.1 1.8-2.4 MG/DL Total Bilirubin 0.5 0.1-1.0 MG/DL Aspartate Amino Transf (AST/SGOT) 30 5-34 U/L Alanine Aminotransferase (ALT/SGPT) 23 0-55 U/L Alkaline Phosphatase 69 40-136 U/L Troponin I < 0.30 <0.30 NG/ML B-Type Natriuretic Peptide < 10.0 <100.0 PG/ML Total Protein 7.3 6.4-8.2 GM/DL Albumin 4.3 3.2-4.5 GM/DL Glucometer 138 H 70-110 MG/DL Urine Color YELLOW Urine Clarity CLEAR Urine pH 5 5-9 Urine Specific [place] 1.015 L 1.016-1.022 Urine Protein NEGATIVE NEGATIVE Urine Glucose (UA) NEGATIVE NEGATIVE Urine Ketones 1+ H NEGATIVE Urine Nitrite NEGATIVE NEGATIVE Urine Bilirubin NEGATIVE NEGATIVE Urine Urobilinogen NORMAL NORMAL MG/DL Urine Leukocyte Esterase 1+ H NEGATIVE Urine RBC (Auto) NEGATIVE NEGATIVE Urine RBC NONE /HPF Urine WBC RARE /HPF Urine Squamous Epithelial Cells 2-5 /HPF Urine Crystals NONE /LPF Urine Bacteria NEGATIVE /HPF Urine Casts PRESENT /LPF Urine Hyaline Casts >50 H /LPF Urine Mucus NEGATIVE /LPF Urine Culture Indicated NO My Orders Orders - BG DOUGHERTY Troponin I (01/22/18 14:51) Chest 1 View, Ap/Pa Only (01/22/18 14:51) Ekg Tracing (01/22/18 14:51) Saline Lock/Iv-Start (01/22/18 14:51) Monitor-Rhythm Ecg Trace Only (01/22/18 14:51) BNP (01/22/18 14:51) Cbc With Automated Diff (01/22/18 14:51) Comprehensive Metabolic Panel (01/22/18 14:51) Magnesium (01/22/18 14:51) Ua Culture If Indicated (01/22/18 14:51) Saline Lock/Iv-Start (01/22/18 14:51) Lactated Ringers (Lr 1000 Ml Iv Solution (01/22/18 14:51) Orthostatic Vital Signs (Adult (01/22/18 14:51) Accucheck Stat ONCE (01/22/18 15:07) Medications Given in ED Current Medications Medications Dose Ordered Sig/Montez Route Start Time Stop Time Status Last Admin Dose Admin Lactated Ringer's 1,000 ml @ 0 mls/hr Q0M ONCE IV 01/22/18 14:51 01/22/18 14:54 DC 01/22/18 15:27 1,000 MLS/HR Vital Signs/I&O Vital Sign - Last 12Hours 01/22/18 01/22/18 14:35 15:28 Temp 98.0 Pulse 128 116 121 133 Resp 18 B/P (MAP) 121/89 (100) 105/77 (86) 103/86 (92) 105/70 (82) Pulse Ox 95 Blood Pressure Mean: 100 Progress Note #1: Time: 15:32 Progress Note Echocardiogram from [address] Patricia CONCLUSION: 1. Technically difficult study. 2. Normal global left ventricular systolic function with an ejection fraction of approximately 60%. 3. Trivial mitral and tricuspid regurgitation. 4. Mild diastolic dysfunction of the left ventricle is suggested on this study. 5. Pulmonary artery systolic pressure is estimated to be within normal limits. He is not hypotensive here however he is definitely tachycardic. EKG is unremarkable. Progress Note #2: Time: 17:23 Progress Note The patient's nausea has resolved his heart rate is improved now around 90-100 and his blood pressure is stayed up above 110 systolic to stay. He received his bag of fluids is feeling better not having any lightheadedness or dizziness and his orthostatic vital signs were unremarkable except when going from sitting to standing his heart rate did jump up by a 12 bpm. He has a follow-up appointment on the with his primary care provider. At the time of discharge blood pressure is 118/82 with a heart rate of 98 by left radial pulse. He has cast in his urine which may indicate he was bit dry. We will have him hold his hydrochlorothiazide for anything less than 140 systolic in the morning and he can cut it in half if it's been 140 and 160 and follow-up with his primary care physician to manage his medications on the . ECG Initial ECG Impression Date: Jan 22, 2018 Initial ECG Impression Time: 15:22 Initial ECG Rate: 120 Initial ECG Rhythm: S.Tach Initial ECG Intervals: Normal Initial ECG Impression: Normal, Nonspecific Changes Diagnostic Imaging Diagonstic Imaging: Xray Plain Films/CT/US/NM/MRI: chest (1v) Comments No acute cardiopulmonary processes noted. VIA [facility] [place], [place] NAME: JOSE [facility] REC#: [id number] PT STATUS: REG ER : 1955 PHYSICIAN: BG DOUGHERTY MD ADMIT DATE: 01/22/18/ER Draft Date of Exam:01/22/18 CHEST 1 VIEW, AP/PA ONLY Indication: Dizziness and shortness of breath. Procedure: PA chest obtained at 3:20 hours p.m. and compared with 05/17/2017. Findings: Heart is normal in size. Aorta is tortuous. There are mild chronic- appearing increased basilar markings. There is no acute consolidation or pneumothorax or pleural fluid. Impression: Mild chronic-appearing increased basilar markings. No acute infiltrate or pneumothorax or pleural fluid. Dictated on workstation # [id number] Dict: 01/22/18 1530 Trans: 01/22/18 1536 CVB [id number] Interpreted by: YADIRA TAYLOR MD Electronically signed by: Reviewed: Reviewed by Me Departure Impression Impression: Primary Impression: Orthostatic hypotension Disposition: 01 HOME, SELF-CARE Condition: Improved Departure-Patient Inst. Decision time for Depature: 17:26 Referrals: [facility] (PCP/Family) Primary Care Physician Patient Instructions: Orthostatic Hypotension (DC) Add. Discharge Instructions: Until you see your provider if your blood pressure in the morning is less than 140 systolic, the top number then please do not take the hydrochlorothiazide. Keep your appointment on the in Ms. Miller. All discharge instructions reviewed with patient and/or family. Voiced understanding. Copy Copies To 1: MILAN MIRZA TITUS J Jan 22, 2018 14:55
[2018-01-22 15:11] LABS: BASOPHILS % (AUTO) 0 % (0-10); EOSINOPHILS # (AUTO) 0.2 10^3/uL (0.0-0.3); EOSINOPHILS % (AUTO) 3 % (0-10); HEMATOCRIT 44 % (40-54); HEMOGLOBIN 14.4 G/DL (13.3-17.7); LYMPHOCYTES # (AUTO) 1.8 X 10^3 (1.0-4.0); LYMPHOCYTES % (AUTO) 31 % (12-44); MEAN CORPUSCULAR HEMOGLOBIN 27 PG (25-34); MEAN CORPUSCULAR HGB CONC 33 G/DL (32-36); MEAN CORPUSCULAR VOLUME 83 FL (80-99); MEAN PLATELET VOLUME 8.3 FL (7.4-10.4); MONOCYTES # (AUTO) 0.5 X 10^3 (0.0-1.0); MONOCYTES % (AUTO) 9 % (0-12); NEUTROPHILS # (AUTO) 3.2 X 10^3 (1.8-7.8); NEUTROPHILS % (AUTO) 56 % (42-75); PLATELET COUNT 333 10^3/uL (130-400); RED BLOOD COUNT 5.27 10^6/uL (4.35-5.85); RED CELL DISTRIBUTION WIDTH 13.9 % (10.0-14.5); WHITE BLOOD COUNT 5.7 10^3/uL (4.3-11.0)
[2018-01-22 15:28] VITALS: BP_SYST 103; BP_SYST 105; BP_DIAS 70; BP_DIAS 77; BP_DIAS 86
--- NOTE | 2018-01-22 15:36 | Diagnostic Imaging Report ---
Indication: Dizziness and shortness of breath. Procedure: PA chest obtained at 3:20 hours p.m. and compared with 05/17/2017. Findings: Heart is normal in size. Aorta is tortuous. There are mild chronic- appearing increased basilar markings. There is no acute consolidation or pneumothorax or pleural fluid. Impression: Mild chronic-appearing increased basilar markings. No acute infiltrate or pneumothorax or pleural fluid. Dictated by: Dictated on workstation # [id number]
[2018-01-22 15:37] LABS: ALBUMIN 4.3 GM/DL (3.2-4.5); BILIRUBIN,TOTAL 0.5 MG/DL (0.1-1.0); CALCIUM 9.3 MG/DL (8.5-10.1); CREATININE SERUM 1.22 MG/DL (0.60-1.30); MAGNESIUM 2.1 MG/DL (1.8-2.4); TOTAL PROTEIN 7.3 GM/DL (6.4-8.2)
[2018-01-22 16:21] LABS: BILIRUBIN,URINE NEGATIVE (NEGATIVE); CLARITY,URINE CLEAR; COLOR,URINE YELLOW; GLUCOSE, URINE (UA) NEGATIVE (NEGATIVE); KETONES,URINE 1+ (NEGATIVE); LEUKOCYTE ESTERASE ,URINE 1+ (NEGATIVE); NITRITE,URINE NEGATIVE (NEGATIVE); PH,URINE 5 (5-9); PROTEIN,URINE NEGATIVE (NEGATIVE); UROBILINOGEN,URINE NORMAL (NORMAL)
[2018-01-22 16:32] LABS: BACTERIA,URINE NEGATIVE /HPF; HYALINE CASTS, URINE >50 /LPF; WBC,URINE RARE /HPF
[2018-01-22 17:32] VITALS: BP 118/82
== END 2018-01-22 17:32 | disposition home or self-care (01) ==
LOC: EDUNIT# 14:25 → ER 14:27
DX: I95.1 Orthostatic hypotension (principal); E11.9 Type 2 diabetes mellitus without complications; K21.9 Gastro-esophageal reflux disease without esophagitis; E78.00 Pure hypercholesterolemia, unspecified; I10 Essential (primary) hypertension; J43.9 Emphysema, unspecified; E66.9 Obesity, unspecified; G47.30 Sleep apnea, unspecified; Z87.19 Personal history of other diseases of the digestive system; Z99.81 Dependence on supplemental oxygen; Z90.89 Acquired absence of other organs; Z87.891 Personal history of nicotine dependence; Z98.890 Other specified postprocedural states; Z68.39 Body mass index [BMI] 39.0-39.9, adult
CPT/HCPCS: 36415; 71045; 80053; 81000; 82962; 83735; 83880; 84484; 85025; 93005; 93041; 96360

== ENCOUNTER 2018-09-18 14:30 | Emergency (ER) | payer MEDICAID, OTHER ==
[~2018-09-18] VITALS: Ht 180.3 cm; Wt 122.5 kg
[2018-09-18] MEDS ORDERED: fentaNYL INJECTION 100 MCG/2 ML AMP IVP STA (15:12)
[2018-09-18] MEDS ORDERED: NS IV 1000 ML 1,000 ML IV ONE (15:12)
[2018-09-18 15:20] LABS: BASOPHILS % (AUTO) 1 % (0-10); EOSINOPHILS # (AUTO) 0.3 10^3/uL (0.0-0.3); EOSINOPHILS % (AUTO) 5 % (0-10); HEMATOCRIT 39 % (40-54); HEMOGLOBIN 11.9 G/DL (13.3-17.7); LYMPHOCYTES # (AUTO) 1.6 X 10^3 (1.0-4.0); LYMPHOCYTES % (AUTO) 30 % (12-44); MEAN CORPUSCULAR HEMOGLOBIN 25 PG (25-34); MEAN CORPUSCULAR HGB CONC 31 G/DL (32-36); MEAN CORPUSCULAR VOLUME 83 FL (80-99); MEAN PLATELET VOLUME 8.4 FL (7.4-10.4); MONOCYTES # (AUTO) 0.5 X 10^3 (0.0-1.0); MONOCYTES % (AUTO) 9 % (0-12); NEUTROPHILS % (AUTO) 55 % (42-75); PLATELET COUNT 303 10^3/uL (130-400); RED BLOOD COUNT 4.73 10^6/uL (4.35-5.85); RED CELL DISTRIBUTION WIDTH 14.2 % (10.0-14.5); WHITE BLOOD COUNT 5.4 10^3/uL (4.3-11.0)
--- NOTE | 2018-09-18 15:20 | Diagnostic Imaging Report ---
INDICATION: Left-sided chest pain and injury. TIME OF EXAMINATION: 3:11 PM. COMPARISON: 01/22/2018. FINDINGS: The heart size is normal. The pulmonary vascularity is unremarkable. The lungs are clear. No infiltrate, effusion, or pneumothorax is detected. IMPRESSION: No acute cardiopulmonary process is detected. Dictated by: Dictated on workstation # [id number]
[2018-09-18] MEDS ORDERED: TETANUS,DIPTH,PERTUSS P/F (BOOSTRIX) 0.5 ML VIAL IM STA (15:32)
[2018-09-18 15:35] LABS: BUN/CREATININE RATIO 21; CALCIUM 8.8 MG/DL (8.5-10.1); CARBON DIOXIDE 24 MMOL/L (21-32); CHLORIDE 106 MMOL/L (98-107); CREATININE SERUM 0.82 MG/DL (0.60-1.30); GFR ESTIMATED > 60; GLUCOSE 154 MG/DL (70-105); POTASSIUM 4.4 MMOL/L (3.6-5.0); SODIUM 138 MMOL/L (135-145)
[2018-09-18 15:36] LABS: ALANINE AMINOTRANSFERASE 23 U/L (0-55); ALKALINE PHOSPHATASE 56 U/L (40-136); BILIRUBIN,TOTAL 0.3 MG/DL (0.1-1.0); TOTAL PROTEIN 6.7 GM/DL (6.4-8.2)
--- NOTE | 2018-09-18 15:39 | ED Trauma-Multisystem ---
General Chief Complaint: Trauma POV Arrival Activation Stated Complaint: UPPER CHEST AND WRIST INJ Nursing Triage Note: 1300- THE PT WAS UNLOADING A LAWN TRACTOR FROM HIS TRAILER. THE TRACTOR ROLLED OVER ON HIM. THE PT NEEDED HELP TO GET THE TRACTOR OFF HIM. Source of Information: Patient Exam Limitations: No Limitations History of Present Illness Date Seen by Provider: Sep 18, 2018 Allergies and Home Medications Allergies Coded Allergies: No Known Drug Allergies (Unverified , 05/01/17) Home Medications Albuterol Sulfate 18 Gm Hfa.aer.ad, 1-2 PUFF IH QID, (Reported) Cefdinir 300 Mg Capsule, 300 MG PO BID Prescribed by: NILAM TIRADO on 05/18/17 1350 Esomeprazole Magnesium 20 Mg Capsule.dr, 20 MG PO DAILY, (Reported) Fluticasone/Vilanterol 1 Each Blst.w.dev, 1 EACH IH DAILY, (Reported) Gabapentin 600 Mg Tablet, 600 MG PO TID, (Reported) Lisinopril 10 Mg Tablet, 10 MG PO DAILY, (Reported) Metformin Hcl 1,000 Mg Tablet, 1 EACH PO BID WITH MEALS, (Reported) Milnacipran HCl 50 Mg Tablet, 50 MG PO BID, (Reported) Brayton-3/Dha/Epa/Fish Oil 1 Each Capsule.dr, 2 EACH PO DAILY, (Reported) Ondansetron 4 Mg Tab.rapdis, 4 MG PO Q8H, (Reported) Oxycodone HCl/Acetaminophen 1 Each Tablet, 1 EACH PO Q4H PRN for PAIN-MODERATE Prescribed by: ADEOLA CABELLO on 09/18/18 1831 Pravastatin Sodium 40 Mg Tablet, 40 MG PO HS, (Reported) Sucralfate 1 Gm Tablet, 1 GM PO QID, (Reported) Tiotropium [place] 1 Inh Aerp, 1 INH IH DAILY, (Reported) Trazodone Hcl 150 Mg Tablet, 150 MG PO HS, (Reported) Past Ycrhxrt-Rojjjq-Zstvxp Hx Patient Social History Type Used: Cigarettes Former Smoker, Quit: May 01, 1999 2nd Hand Smoke Exposure: No Recent Foreign Travel: No Contact w/Someone Who Travel: No Recent Infectious Disease Expo: No Recent Hopitalizations: No Physical Abuse: No Sexual Abuse: No Mistreated: No Fear: No Immunizations Up To Date Date of Pneumonia Vaccine: March 11, 2016 Seasonal Allergies Seasonal Allergies: No Past Medical History Surgeries: No Abdominal, Gallbladder, Tonsillectomy Respiratory: Yes COPD Currently Using CPAP: Yes Cardiac: No High Cholesterol, Hypertension Neurological: No Reproductive Disorders: No Sexually Transmitted Disease: No HIV/AIDS: No Genitourinary: No Gastrointestinal: Yes Abdominal Hernia, Gastroesophageal Reflux, Diverticulosis, Hepatitis, Polyps, Irritable Bowel Musculoskeletal: Yes (RIGHT SCIATICA--WALKS WITH CANE) Degenerate Disk Disease, Arthritis, Chronic Back Pain Endocrine: Yes (OBESITY) Diabetes, Non-Insulin dep HEENT: No Loss of Vision: Bilateral Hearing Impairment: Hearing Aide Right Cancer: No Psychosocial: No Integumentary: No Blood Disorders: No Adverse Reaction/Blood Tranf: No Family Medical History Heart Disease, Cancer, Diabetes, Hypertension Physical Exam Vital Signs Vital Signs - First Documented 09/18/18 09/18/18 14:44 15:42 Temp 97.8 Pulse 90 Resp 18 B/P (MAP) 148/98 (115) Pulse Ox 97 Height, Weight, BMI Height: 5'11.00" Weight: 270lbs. 6.0oz. 122.875071gn; 35.15 BMI Method:Estimated Progress/Results/Core Measures Results/Orders Lab Results Laboratory Tests Test 09/18/18 15:06 Range/Units White Blood Count 5.4 4.3-11.0 10^3/uL Red Blood Count 4.73 4.35-5.85 10^6/uL Hemoglobin 11.9 L 13.3-17.7 G/DL Hematocrit 39 L 40-54 % Mean Corpuscular Volume 83 80-99 FL Mean Corpuscular Hemoglobin 25 25-34 PG Mean Corpuscular Hemoglobin Concent 31 L 32-36 G/DL Red Cell Distribution Width 14.2 10.0-14.5 % Platelet Count 303 130-400 10^3/uL Mean Platelet Volume 8.4 7.4-10.4 FL Neutrophils (%) (Auto) 55 42-75 % Lymphocytes (%) (Auto) 30 12-44 % Monocytes (%) (Auto) 9 0-12 % Eosinophils (%) (Auto) 5 0-10 % Basophils (%) (Auto) 1 0-10 % Neutrophils # (Auto) 3.0 1.8-7.8 X 10^3 Lymphocytes # (Auto) 1.6 1.0-4.0 X 10^3 Monocytes # (Auto) 0.5 0.0-1.0 X 10^3 Eosinophils # (Auto) 0.3 0.0-0.3 10^3/uL Basophils # (Auto) 0.0 0.0-0.1 10^3/uL Sodium Level 138 135-145 MMOL/L Potassium Level 4.4 3.6-5.0 MMOL/L Chloride Level 106 98-107 MMOL/L Carbon Dioxide Level 24 21-32 MMOL/L Anion Gap 8 5-14 MMOL/L Blood Urea Nitrogen 17 7-18 MG/DL Creatinine 0.82 0.60-1.30 MG/DL Estimat Glomerular Filtration Rate > 60 BUN/Creatinine Ratio 21 Glucose Level 154 H 70-105 MG/DL Calcium Level 8.8 8.5-10.1 MG/DL Corrected Calcium 8.8 8.5-10.1 MG/DL Total Bilirubin 0.3 0.1-1.0 MG/DL Aspartate Amino Transf (AST/SGOT) 29 5-34 U/L Alanine Aminotransferase (ALT/SGPT) 23 0-55 U/L Alkaline Phosphatase 56 40-136 U/L Total Protein 6.7 6.4-8.2 GM/DL Albumin 4.0 3.2-4.5 GM/DL My Orders Orders - ADEOLA CABELLO PA Chest 1 View, Ap/Pa Only (09/18/18 15:07) Ct Head Wo (09/18/18 15:12) Cbc With Automated Diff (09/18/18 15:12) Comprehensive Metabolic Panel (09/18/18 15:12) Ns Iv 1000 Ml (Sodium Chloride 0.9%) (09/18/18 15:12) Fentanyl Injection (Sublimaze Injection (09/18/18 15:12) Ct Chest/Abdomen/Pelvis W (09/18/18 15:12) Dipht,Pertuss(Acell),Tet Adult (Boostrix (09/18/18 15:32) Iohexol Injection (Omnipaque 350 Mg/Ml 1 (09/18/18 16:45) Contrast Received (Contrast Received) (09/18/18 16:45) Sodium Chloride Flush (Catheter Flush Sy (09/18/18 16:45) Ns (Ivpb) (Sodium Chloride 0.9%) (09/18/18 16:45) Morphine Injection (Morphine Injection (09/18/18 17:58) Incentive Spirometry Initial (09/18/18 18:04) Incentive Spirometry (Nursing) Q2H (09/18/18 18:04) Medications Given in ED Current Medications Medications Dose Ordered Sig/Montez Route Start Time Stop Time Status Last Admin Dose Admin Iohexol 100 ml ONCE ONCE IV 09/18/18 16:45 09/18/18 16:46 DC 09/18/18 16:37 100 ML Sodium Chloride 10 ml NEEDED PRN IV 09/18/18 16:45 09/18/18 16:37 10 ML Sodium Chloride 250 ml ONCE ONCE IV 09/18/18 16:45 09/18/18 16:46 DC 09/18/18 16:37 80 ML Sodium Chloride 1,000 ml @ 0 mls/hr Q0M ONCE IV 09/18/18 15:12 09/18/18 15:15 DC 09/18/18 16:07 1,000 MLS/HR Vital Signs/I&O 09/18/18 09/18/18 14:44 15:42 Temp 97.8 97.8 Pulse 90 90 Resp 18 18 B/P (MAP) 148/98 (115) 148/78 (101) Pulse Ox 97 Blood Pressure Mean: 115 Departure Communication (Admissions) 3250 patient case discussed with Dr. Tirado including history, vital signs, laboratory findings, and diagnostic study findings. Dr. Tirado recommends discharge to home with incentive spirometer, continuing patient's albuterol inhaler, and follow-up in the walk-in clinic at [facility] tomorrow for recheck. Impression Primary Impression: Multiple rib fractures Disposition: 01 HOME, SELF-CARE Condition: Improved Departure-Patient Inst. Decision time for Depature: 18:15 Referrals: [facility] (PCP/Family) Primary Care Physician Patient Instructions: Rib Fracture (DC), Minor Head Injury (DC) Add. Discharge Instructions: All discharge instructions reviewed with patient and/or family. Voiced understanding. Medications as instructed. Incentive spirometer every 1-2 hours while awake. Continue your albuterol inhaler 4 times a day 3 days. Follow-up with the walking clinic at [facility] tomorrow for a recheck as an outpatient. Call first thing in the morning for appointment time. Ice pack for 20 minute intervals as needed to the affected areas for 2-3 days, then use a heating pad or pack as needed. No heavy lifting, pushing, pulling, twisting, bending, climbing until released by your family practitioner. Return to the emergency department for worsened symptoms, shortness of air, dizziness, headache, chest pain, numbness, weakness, neck pain , back pain, or any other concerns. Scripts Oxycodone HCl/Acetaminophen (Percocet 5-325 mg Tablet) 1 Each Tablet 1 EACH PO Q4H PRN for PAIN-MODERATE MDD 6, #14 TAB 0 Refills Prov: ADEOLA CABELLO 09/18/18 ADEOLA CABELLO Sep 18, 2018 15:39
--- NOTE | 2018-09-18 16:36 | Diagnostic Imaging Report ---
PROCEDURE: CT head without contrast. TECHNIQUE: Multiple contiguous axial images were obtained through the brain without the use of intravenous contrast. INDICATION: Trauma, fall off a tractor. COMPARISON: None available. FINDINGS: No hyperdense hemorrhage or space-occupying mass. No hydrocephalus or midline shift. Mondragon-white matter differentiation is preserved. Basilar cisterns are patent. No acute skull fracture. Paranasal sinuses and mastoid air cells are clear. IMPRESSION: No acute intracranial process or skull fracture. Dictated by: Dictated on workstation # [id number]
[2018-09-18] MEDS ORDERED: RECEIVED CONTRAST (Hold Metformin) IV SCH (16:45)
[2018-09-18] MEDS ORDERED: CATHETER FLUSH 10 ML SYR IV PRN (16:45)
[2018-09-18] MEDS ORDERED: NS 250 ML (IVPB) BAG IV ONE (16:45)
[2018-09-18] MEDS ORDERED: IOHEXOL 350 MG/ML 100 ML (OMNIPAQUE 350) VIAL IV ONE (16:45)
--- NOTE | 2018-09-18 16:56 | Diagnostic Imaging Report ---
PROCEDURE: CT chest, abdomen and pelvis with contrast. TECHNIQUE: Multiple contiguous axial images were obtained through the chest, abdomen and pelvis after the administration of intravenous contrast. INDICATION: Trauma. Fall from tractor which fell onto patient. Left-sided chest and abdominal pain. History of cholecystectomy and hernia surgery. COMPARISON: CT from 03/22/2017. FINDINGS: CT CHEST: No pleural effusion or pneumothorax is seen. No central endobronchial lesions are seen. No focal pulmonary consolidation or masses are identified. The heart is normal in size. There is no pericardial effusion. No substernal edema is seen. No para-aortic fluid is identified. There is a small pocket of air to the right of the upper esophagus, which measures up to 2 cm in diameter. No significant pneumomediastinum, pneumoperitoneum or pneumothorax is seen, and this likely represents a diverticulum or possibly developmental abnormality. There is subtle cortical irregularity at the anterior right fifth through ninth ribs, concerning for nondisplaced rib fractures. No sternal fracture is seen. There is vertebral body height loss of the T9 vertebral body which appears chronic. There are degenerative changes with flowing anterior osteophytes through the lower thoracic spine. CT ABDOMEN/PELVIS: Cholecystectomy clips are noted. The liver is unremarkable. The spleen is normal. Multiple small splenules are present. The pancreas is unremarkable. The adrenal glands appear normal. The kidneys demonstrate no hydronephrosis or mass. No solid organ laceration is seen. No free air is seen. No free fluid is identified. The bowel loops are nondistended. The appendix is normal. There is colonic diverticulosis, distally, without diverticulitis. No bowel wall thickening is seen. There is a large periumbilical hernia which contains bowel, but no evidence of strangulation. There is transitional anatomy at the lumbosacral junction. No acute fracture is seen in the pelvis. The vertebral body heights of the lumbar spine appear preserved. IMPRESSION: 1. Nondisplaced fractures of the anterior right fifth through ninth ribs. 2. No acute pulmonary abnormality is seen. 3. No free fluid or free air is seen in the abdomen. No solid organ laceration seen. 4. Large periumbilical hernia containing bowel with no evidence of strangulation. Dictated by: Dictated on workstation # [id number]
[2018-09-18] MEDS ORDERED: morphine INJ 10 MG/ML 1ML (SYR OR VIAL) IVP STA (17:58)
[2018-09-18] MEDS ORDERED: OXYC1TAB87 PO (18:31)
[2018-09-18 18:48] VITALS: BP 137/99
== END 2018-09-18 18:55 | disposition home or self-care (01) ==
LOC: EDUNIT# 14:30 → ER 14:31
DX: S22.41XA Multiple fractures of ribs, right side, initial encounter for closed fracture (principal); J44.9 Chronic obstructive pulmonary disease, unspecified; E78.00 Pure hypercholesterolemia, unspecified; I10 Essential (primary) hypertension; K21.9 Gastro-esophageal reflux disease without esophagitis; E66.9 Obesity, unspecified; E11.9 Type 2 diabetes mellitus without complications; Z86.010 Personal history of colon polyps; Z82.49 Family history of ischemic heart disease and other diseases of the circulatory system; Z68.35 Body mass index [BMI] 35.0-35.9, adult; Z23 Encounter for immunization; Z87.19 Personal history of other diseases of the digestive system; Z79.51 Long term (current) use of inhaled steroids; Z79.84 Long term (current) use of oral hypoglycemic drugs; Z87.891 Personal history of nicotine dependence; Z98.890 Other specified postprocedural states; Z90.89 Acquired absence of other organs; V84.7XXA Person on outside of special agricultural vehicle injured in nontraffic accident, initial encounter
CPT/HCPCS: 36415; 70450; 71045; 71260; 74177; 80053; 85025; 90715; 94664; 99291

== ENCOUNTER → 2018-12-24 | Outpatient (CLI) | payer MEDICARE, MEDICAID ==
[~2018-12-24] MED LIST changes: -GABA600T2 PO; +GBPN600T PO; +IOHEXOL 350 MG/ML 100 ML (OMNIPAQUE 350) VIAL IV ONE; +NS 100 ML (IVPB) BAG IV ONE; +OXYC1TAB87 PO; +RECEIVED CONTRAST (Hold Metformin) IV SCH
--- NOTE | 2018-12-24 11:40 | Diagnostic Imaging Report ---
PROCEDURE: CT abdomen with contrast only. TECHNIQUE: Multiple contiguous axial images were obtained through the abdomen after the administration of intravenous contrast. INDICATION: Pancreatic mass. Comparison is made to the examination of 09/18/2018. Note is made of an increase in callus about nonacute fractures involving the anterior lower ribs. There is low-density throughout the liver indicating steatosis. There is no evidence of biliary ductal dilatation. The gallbladder is surgically absent. There is no evidence of focal splenic lesion. Approximately 1.5 cm in diameter splenic artery aneurysm is again noted in the splenic hilum. There is a stable accessory splenule in the left upper quadrant as well. There is no evidence of adrenal gland or renal lesion. Pancreatic mass is not appreciated. Anterior abdominal wall hernia is partially visualized. There is no evidence of free fluid. No organized fluid collection is seen to indicate abscess or hematoma. There is mild aortoiliac atherosclerotic calcification. IMPRESSION: No discrete pancreatic mass is identified. There is no evidence of pancreatic or biliary ductal dilatation. The patient is post cholecystectomy. No new abnormalities detected. Dictated by: Dictated on workstation # [id number]
== END ==
LOC: RAD 10:03
PROVIDERS: ATTEND Family Medicine
DX: I72.8 Aneurysm of other specified arteries (principal); K86.89 Other specified diseases of pancreas; Z90.49 Acquired absence of other specified parts of digestive tract
CPT/HCPCS: 74160

== ENCOUNTER 2019-01-25 17:48 | Observation (INO) | payer MEDICARE, MEDICAID ==
[2019-01-25] VITALS (7 sets, daily range): BP systolic 135–162; BP diastolic 80–90
[~2019-01-25] VITALS: Ht 175.3 cm; Wt 147.4 kg
[~2019-01-25 17:48] MED LIST changes: -ACET-2267 PO; -AMLO10TA7 PO; -ASPI325T32 PO; -METF-399 PO; -RT-ALBUTEROL SULF 2.5 MG/3 ML PRE-MIX VIAL INH ONE; -TIOT4MIS5 IH; -TRAZ150T72 PO
--- OUTSIDE RECORDS SUMMARY | 2019-01-25 17:55 | XMS REPORT ---
Author Author KEO LINDQUIST [facility] Address [address] [place] [address] Care Team Providers Care Stamp Mounter Name Role Phone KEO LINDQUIST Unavailable PROBLEMS Type Condition ICD9-CM Code TFO47-TT Code Onset Dates Condition Status SNOMED Code Problem Hypertension I10 Active 06800421 Problem Pancreatic lesion K86.9 Active 5055461 Problem COPD (chronic obstructive pulmonary disease) J44.9 Active 40337795 Problem GERD (gastroesophageal reflux disease) K21.9 Active 354660477 Problem Osteoarthritis of spine with radiculopathy, cervical region M47.22 Active 569928765 Problem Type 2 diabetes mellitus with diabetic neuropathy, without long-term current use of insulin E11.40 Active 77369439 Problem Carpal tunnel syndrome of right wrist G56.01 Active 121469618518180 Problem Splenic artery aneurysm I72.8 Active 01941154 Problem Hypertriglyceridemia E78.1 Active 136704801 Problem Primary insomnia F51.01 Active 3619546 ALLERGIES No Known Allergies ENCOUNTERS Encounter Location Date Diagnosis [facility] [id number] [place] [address] 99124- 4383 11 Oct, 2018 Hypertension I10 ; Type 2 diabetes mellitus with diabetic neuropathy, without long-term current use of insulin E11.40 ; Osteoarthritis of spine with radiculopathy, cervical region M47.22 ; Peripheral neuropathy G62.9 ; Closed fracture of multiple ribs of left side, initial encounter S22.42XA ; Sciatic nerve pain, unspecified laterality M54.30 ; COPD (chronic obstructive pulmonary disease) J44.9 ; Type 2 diabetes mellitus without complications E11.9 ; Closed fracture of multiple ribs of right side with routine healing, subsequent encounter S22.41XD and BMI 45.0-49.9, adult Z68.42 [facility] [id number] [place] [address] 18215- 2916 Sep, Hypertension I10 [facility] [address] [id number] [place] [address] 19532- 4023 19 Sep, 2018 [facility] [id number] [place] [address] 63277- 6637 Sep, Closed fracture of multiple ribs of left side, initial encounter S22.42XA and BMI 45.0-49.9, adult Z68.42 [facility] [id number] [place] [address] 59794- 9659 10 Sep, 2018 [facility] [address] [id number] [place] [address] 17737- 6271 Aug, Sciatic nerve pain, unspecified laterality M54.30 and Peripheral neuropathy G62.9 [facility] [id number] [place] [address] 53262- 7647 27 Jul, 2018 Hypertension I10 ; Type 2 diabetes mellitus with other specified complication, without long-term current use of insulin E11.69 and Sciatic nerve pain, unspecified laterality M54.30 [facility] [id number] [place] [address] 59767- 8507 25 Jul, 2018 Type 2 diabetes mellitus with other specified complication, without long-term current use of insulin E11.69 ; BMI 45.0-49.9, adult Z68.42 ; Sciatic nerve pain, unspecified laterality M54.30 ; Hypertension I10 ; Lumbago with sciatica, left side M54.42 ; Lumbago with sciatica, right side M54.41 and Other chronic pain G89.29 [facility] [address] [address] Jul, [facility] [id number] [place] [address] 73986- 2387 07 Jul, 2018 Degenerative lumbar spinal stenosis M48.06 and COPD ( chronic obstructive pulmonary disease) J44.9 [facility] [id number] [place] [address] 03437- 1842 Jun, Type 2 diabetes mellitus with diabetic neuropathy, without long-term current use of insulin E11.40 [facility] [id number] [place] [address] 67378- 7129 Jun, Primary insomnia F51.01 and Degenerative lumbar spinal stenosis M48.06 [facility] [id number] [place] [address] 57801- 3398 Apr, Type 2 diabetes mellitus with diabetic neuropathy, without long-term current use of insulin E11.40 ; Primary insomnia F51.01 and Hypertension I10 [facility] [id number] [place] [address] 43533- 7840 March, Primary insomnia F51.01 [facility] [address] 36349- 6981 March, Osteoarthritis of spine with radiculopathy, cervical region M47.22 [facility] [address] 52214- 0170 Feb, Type 2 diabetes mellitus with diabetic neuropathy, without long-term current use of insulin E11.40 [facility] [id number] [place] [address] 83935- 1585 Feb, [facility] [id number] [place] [address] 96481- 5465 Feb, [facility] [id number] [place] [address] 53476- 7167 Feb, Actinic keratosis L57.0 and BMI 40.0-44.9, adult Z68.41 [facility] [id number] [place] [address] 88109- 2083 Feb, Type 2 diabetes mellitus without complications E11.9 [facility] [id number] [place] [address] 67941- 4014 Jan, Hypertension I10 ; BMI 40.0-44.9, adult Z68.41 ; Cervicalgia M54.2 and Carpal tunnel syndrome of right wrist G56.01 [facility] [address] [place] [address]- 7413 Jan, [facility] [id number] [place] [address] 15440- 3469 Jan, [facility] [id number] [place] [address] 67702- 0741 Jan, [facility] [id number] [place] [address] 64862- 1842 Dec, Hypertension I10 [facility] [address] 79033- 3221 Dec, [facility] [address] 36994- 7077 Nov, Degenerative lumbar spinal stenosis M48.06 and COPD ( chronic obstructive pulmonary disease) J44.9 [facility] [id number] [place] [address] 65780- 3722 Nov, Onycholysis L60.1 [facility] [id number] [place] [address] 88223- 1502 Nov, Type 2 diabetes mellitus with diabetic neuropathy, without long-term current use of insulin E11.40 ; COPD (chronic obstructive pulmonary disease) J44.9 ; GERD (gastroesophageal reflux disease) K21.9 ; Hypertriglyceridemia E78.1 ; Hypertension I10 ; Degenerative lumbar spinal stenosis M48.06 ; Lumbago with sciatica, right side M54.41 ; Sciatic nerve pain M54.30 and Primary insomnia F51.01 [facility] [id number] [place] [address] 14180- 3982 Oct, Hypertension I10 ; Peripheral neuropathy G62.9 ; Type 2 diabetes mellitus without complications E11.9 and COPD (chronic obstructive pulmonary disease) J44.9 [facility] [address] [place] [address] 36986- 9838 Oct, Peripheral neuropathy G62.9 [facility] [id number] [place] [address] 26278- 0512 Sep, Peripheral neuropathy G62.9 [facility] [address] [address] 2903 Aug, Peripheral neuropathy G62.9 [facility] [id number] [place] [address] 80242- 1934 Jul, [facility] [id number] [place] [address] 14018- 0935 Jul, [facility] [id number] [place] [address] 42253- 1155 Jul, Type 2 diabetes mellitus without complications E11.9 ; Splenic artery aneurysm I72.8 ; Pancreatic lesion K86.9 ; Primary insomnia F51.01 ; Peripheral neuropathy G62.9 and Carpal tunnel syndrome of right wrist G56.01 [facility] [address] [place] [address] 29639- 4791 Jun, Type 2 diabetes mellitus without complications E11.9 and Leg cramps R25.2 [facility] [id number] [place] [address] 09044- 2277 Jun, [facility] [id number] [place] [address] 68266- 0437 May, Splenic artery aneurysm I72.8 ; Pancreatic lesion K86.9 ; Hypertension I10 and Urinary tract infection without hematuria, site unspecified N39.0 [facility] [address] [place] [address] 63655- 2293 May, Leg cramps R25.2 [facility] [address] [place] [address] 77490- 9832 May, [facility] [id number] [place] [address] 33130- 2305 May, Type 2 diabetes mellitus without complications E11.9 and GERD (gastroesophageal reflux disease) K21.9 [facility] [address] [place] [address] 54898- 4772 Apr, [facility] [id number] [address]- 9899 16 Apr, 2017 [facility] [id number] [place] [address] 02742- 1242 Apr, [facility] [id number] [place] [address] 16902- 1729 07 Apr, 2017 [facility] [id number] [place] [address] 76549- 0655 Apr, Type 2 diabetes mellitus without complications E11.9 ; GERD (gastroesophageal reflux disease) K21.9 ; Peripheral neuropathy G62.9 ; Hypertension I10 ; Sciatic nerve pain M54.30 ; Morbid obesity E66.01 ; COPD ( chronic obstructive pulmonary disease) J44.9 ; Pancreatic lesion K86.9 and Splenic artery aneurysm I72.8 [facility] [id number] [place] [address] 83901- 4413 March, [facility] [id number] [place] [address] 62192- 2735 March, H/O hypercholesterolemia Z86.39 ; Leg cramps R25.2 ; Hypertension I10 and GERD (gastroesophageal reflux disease) K21.9 [facility] [id number] [place] [address] 28355- 2944 Sep, Type 2 diabetes mellitus without complications E11.9 ; GERD (gastroesophageal reflux disease) K21.9 ; Peripheral neuropathy G62.9 ; Hypertension I10 ; Sciatic nerve pain M54.30 ; Morbid obesity E66.01 ; COPD ( chronic obstructive pulmonary disease) J44.9 ; Leg cramps R25.2 ; Other depression F32.8 ; H/O hypercholesterolemia Z86.39 and Degenerative lumbar spinal stenosis M48.06 [facility] [id number] [place] [address] 04997- 5754 Aug, [facility] [id number] [place] [address] 81809- 8125 Jun, [facility] [id number] [place] [address] 74550- 5135 Jun, [facility] [id number] [place] [address] 74376- 6883 Jun, [facility] [address] 69773- 0108 May, Peripheral neuropathy G62.9 ; Sciatic nerve pain M54.30 ; Morbid obesity E66.01 ; Other depression F32.8 and Lumbago with sciatica, right side M54.41 [facility] [address] 82534- 1015 Apr, [address] [address]54- 1434 Apr, Pain in thoracic spine M54.6 ; Other chronic pain G89.29 ; Lumbago with sciatica, left side M54.42 ; Lumbago with sciatica, right side M54.41 ; Onycholysis L60.1 and Intractable vomiting with nausea, vomiting of unspecified type R11.2 [facility] [id number] [place] [address] 13491- 0364 March, [address] 80128- 0027 March, Type 2 diabetes mellitus without complications E11.9 ; Onycholysis L60.1 and Encounter for screening colonoscopy Z12.11 [facility] [id number] [place] [address] 37840- 3135 Feb, [facility] [address] 48222- 0404 Feb, Peripheral neuropathy G62.9 and Leg cramps R25.2 [facility] [address] [address]74 -2490 Jan, Influenza A J10.1 and Body aches R52 [facility] [id number] [place] [address] 27872- 0895 09 Dec, 2015 GERD (gastroesophageal reflux disease) K21.9 ; Peripheral neuropathy G62.9 ; Hypertension I10 ; Morbid obesity E66.01 ; Encounter for immunization Z23 ; Type 2 diabetes mellitus without complications E11.9 and COPD (chronic obstructive pulmonary disease) J44.9 [facility] [id number] [place] [address] 90020- 3315 08 Dec, 2015 [facility] [id number] [place] [address] 48077- 1449 Dec, Morbid obesity E66.01 [facility] [id number] [place] [address] 79483- 3227 Nov, [facility] [address] 15285- 7595 Nov, [facility] [id number] [place] [address] 07516- 5738 Nov, [facility] [id number] [place] [address] 31946- 3112 Nov, [facility] [id number] [place] [address] 76621- 8398 Oct, [facility] [id number] [place] [address] 75580- 8536 Oct, [facility] [id number] [place] [address] 16158- 4556 Oct, [facility] [id number] [place] [address] 29924- 9320 Oct, [facility] [id number] [place] [address] 23622- 5201 Sep, Type 2 diabetes mellitus without complications E11.9 ; GERD (gastroesophageal reflux disease) K21.9 ; Peripheral neuropathy G62.9 ; Hypertension I10 ; H/O hypercholesterolemia Z86.39 ; Morbid obesity E66.01 and Sciatic nerve pain M54.30 [facility] [id number] [place] [address] 68492- 4966 Sep, General medical exam Z00.00 ; Abnormal chest x-ray R93.8 ; Type 2 diabetes mellitus without complications E11.9 and GERD (gastroesophageal reflux disease) K21.9 [facility] [address] [address]- 5131 10 Sep, 2015 General medical exam Z00.00 ; Type 2 diabetes mellitus without complications E11.9 ; GERD (gastroesophageal reflux disease) K21.9 ; Abnormal chest x-ray R93.8 ; Leg cramps R25.2 ; Dietary counseling Z71.3 ; Exercise counseling Z71.89 ; Peripheral neuropathy G62.9 ; Hypertension I10 ; H/ O hypercholesterolemia Z86.39 ; Sciatic nerve pain M54.30 and Morbid obesity E66.01 [facility] [id number] [address]- 2092 04 Mar, 2012 [facility] [address] [address]- 9322 Sep, IMMUNIZATIONS No Known Immunizations SOCIAL HISTORY Never Assessed REASON FOR VISIT - Establish Care- AARON Gil, needs meds refilled- AARON Gil PLAN OF CARE Activity Details Follow Up 3 months or as indicated by lab Reason: VITAL SIGNS Height 69 in 2018-10-20 Weight 316.8 lbs 2018-10-20 Temperature 96.7 degrees Fahrenheit 2018-10-20 Heart Rate 119 bpm 2018-10-20 Respiratory Rate 20 2018-10-20 BMI 46.78 kg/m2 2018-10-20 Blood pressure systolic 134 mmHg 2018-10-20 Blood pressure diastolic 78 mmHg 2018-10-20 MEDICATIONS Medication Instructions Dosage Frequency Start Date End Date Duration Status Trazodone HCl 300 MG Orally Once a day 0.5 tablet at bedtime 24h Active Protonix 40 mg Orally Once a day 1 tablet 24h 10 May, 2017 Active Spiriva HandiHaler 18 MCG Inhalation Once a day 1 capsule 24h Active Diclofenac Sodium 75 MG Orally Twice a day 1 tablet 12h Active Savella 100 mg Orally 2 times a day 1 tablet 12h 15 Feb, 2016 Active Breo Ellipta 100-25 MCG/INH Inhalation Once a day 1 puff 24h Active Aspirin 325 MG Orally Once a day 1 tablet 24h Active ZyrTEC 10 mg Orally Once a day 1 tablet 24h 30 days Active Metformin HCl 1000 MG Orally Twice a day 1 tablet with a meal 12h 90 days Active Ventolin HFA 108 (90 Base) MCG/ACT Inhalation every 4 hrs 2 puffs as needed 4h Active Norvasc 10 mg Orally Once a day 1 tablet 24h 90 days Active Ondansetron 4 MG Orally every 8 hrs 1 tablet on the tongue and allow to dissolve 8h 07 Apr, 2016 Active Gabapentin 300 MG Orally 3 times a day 1 capsule 8h Jul, 28 days Active Lisinopril 10 mg Orally Once a day 1 tablet 24h 90 days Active Oxycodone-Acetaminophen 5-325 MG Orally 2 times a day 1 tablet as needed 12h 11 Oct, 2018 28 days Active Pravachol 20 mg Orally Once a day 2 capsules 24h Active Acetaminophen 500 MG Orally every 6 hrs 1 capsule as needed 6h Active Cyclobenzaprine HCl 10 mg Orally Three times a day 1 tablet as needed 8h 10 days Active Trazodone HCl 150 MG Orally Once a day at HS 1 tablet 90 days Active RESULTS No Results PROCEDURES Procedure Date Ordered Result Body Site [facility] VISIT ESTABLISHED PATIENT Oct 20, 2018 INSTRUCTIONS MEDICATIONS ADMINISTERED No Known Medications MEDICAL (GENERAL) HISTORY Type Description Date Medical History Hypertension Medical History Diabetes Medical History Sciatic nerve pain Medical History Hyperlipidemia Medical History obesity Medical History 05/2017- colonoscopy-serrated adenoma/ hyperplastic polyp- distal rectum Medical History splenic artery aneurysm Medical History pancreatic lesion Medical History GERD Medical History Insomnia Medical History osteoarthritis-cervical spine Medical History Carpal tunnel right wrist Medical History COPD Surgical History hernia repair 2008 Surgical History tonsillectomy Surgical History cholecystectomy 2008 Hospitalization History Surgery(s) only Hospitalization History bladder infection May 2017 Hospitalization History [facility] September 2018
--- OUTSIDE RECORDS SUMMARY | 2019-01-25 17:56 | XMS REPORT ---
Author Author JANETTE LOPES [facility] Address [address] [place] [address] Care Team Providers Care Customer Care Specialist Name Role Phone VILMAVic JANETTE Unavailable PROBLEMS Type Condition ICD9-CM Code ZSY55-TC Code Onset Dates Condition Status SNOMED Code Problem Primary insomnia F51.01 Active 6181373 Problem Lumbago with sciatica, right side M54.41 Active 27378016 Problem Hypertriglyceridemia E78.1 Active 852938755 Problem Other chronic pain G89.29 Active 91788842 Problem Lumbago with sciatica, left side M54.42 Active 603078032 Problem Osteoarthritis of spine with radiculopathy, cervical region M47.22 Active 187711155 Problem Type 2 diabetes mellitus with diabetic neuropathy, without long-term current use of insulin E11.40 Active 30680388 Problem Type 2 diabetes mellitus with other specified complication, without long-term current use of insulin E11.69 Active 30993814 Problem Sciatic nerve pain, unspecified laterality M54.30 Active 49171421 Problem Sciatic nerve pain M54.30 Active 46121749 Problem COPD (chronic obstructive pulmonary disease) J44.9 Active 51924103 Problem Pancreatic lesion K86.9 Active 7851068 Problem Hypertension I10 Active 78684972 Problem Splenic artery aneurysm I72.8 Active 59803819 Problem GERD (gastroesophageal reflux disease) K21.9 Active 043868996 Problem Carpal tunnel syndrome of right wrist G56.01 Active [id number] ALLERGIES No Information ENCOUNTERS Encounter Location Date Diagnosis [facility] [address], [place] [address] Oct, [facility] [address], [place] [address] Sep, Hypertension I10 [facility] [id number], [place] [address] Sep, [place] [id number] [place] [address]83- 8753 13 Sep, 2018 Closed fracture of multiple ribs of left side, initial encounter S22.42XA and BMI 45.0-49.9, adult Z68.42 [place] [id number] [place] [address] 46121- 8649 10 Sep, 2018 [place] [address] [address] 15 Aug, 2018 Sciatic nerve pain, unspecified laterality M54.30 and Peripheral neuropathy G62.[address] [address]- [address] 27 Jul, 2018 Hypertension I10 ; Type 2 diabetes mellitus with other specified complication, without long-term current use of insulin E11.69 and Sciatic nerve pain, unspecified laterality M54.30 [place] [id number] [place] [address] 27457- 2398 25 Jul, 2018 Type 2 diabetes mellitus with other specified complication, without long-term current use of insulin E11.69 ; BMI 45.0-49.9, adult Z68.42 ; Sciatic nerve pain, unspecified laterality M54.30 ; Hypertension I10 ; Lumbago with sciatica, left side M54.42 ; Lumbago with sciatica, right side M54.41 and Other chronic pain G89.29 [place] [id number] [place] [address] 28486- 9653 Jul, [place] [id number] [place] [address] 99864- 2983 07 Jul, 2018 Degenerative lumbar spinal stenosis M48.06 and COPD ( chronic obstructive pulmonary disease) J44.9 [place] [id number] [place] [address] 71819- 7783 Jun, Type 2 diabetes mellitus with diabetic neuropathy, without long-term current use of insulin E11.40 [place] [id number] [place] [address] 54864- 8745 Jun, Primary insomnia F51.01 and Degenerative lumbar spinal stenosis M48.06 [place] [id number] [place] [address] 22305- 8882 Apr, Type 2 diabetes mellitus with diabetic neuropathy, without long-term current use of insulin E11.40 ; Primary insomnia F51.01 and Hypertension I10 [place] [address] [address]- [address] March, Primary insomnia F51.01 [place] [address] 6[address]- 8[address] March, Osteoarthritis of spine with radiculopathy, cervical region M47.22 [place] [id number] [place] [address] 75667- 2343 Feb, Type 2 diabetes mellitus with diabetic neuropathy, without long-term current use of insulin E11.40 [place] [address] 09875- 8875 Feb, [place] [address] [address]36- 9051 Feb, [place] [address] [address]- 0612 Feb, Actinic keratosis L57.0 and BMI 40.0-44.9, adult Z68.41 [place] [id number] [place] [address] 17121- 0378 Feb, Type 2 diabetes mellitus without complications E11.9 [place] [id number] [place] [address] 76335- 9449 Jan, Hypertension I10 ; BMI 40.0-44.9, adult Z68.41 ; Cervicalgia M54.2 and Carpal tunnel syndrome of right wrist G56.01 [place] [id number] [place] [address] 66155- 8717 Jan, [place] [address] [place] [id number] Jan, [facility] [address], [place] [address] Jan, [facility] [id number] [place] [address] 00721- 7828 Dec, Hypertension I10 [place] [id number] [place] [address] 30157- 0497 Dec, [place] [id number] [place] [address] 03729- 7221 Nov, Degenerative lumbar spinal stenosis M48.06 and COPD ( chronic obstructive pulmonary disease) J44.9 [place] [id number] [place] [address] 83476- 0150 Nov, Onycholysis L60.1 [place] [id number] [place] [address] 35752- 4221 Nov, Type 2 diabetes mellitus with diabetic neuropathy, without long-term current use of insulin E11.40 ; COPD (chronic obstructive pulmonary disease) J44.9 ; GERD (gastroesophageal reflux disease) K21.9 ; Hypertriglyceridemia E78.1 ; Hypertension I10 ; Degenerative lumbar spinal stenosis M48.06 ; Lumbago with sciatica, right side M54.41 ; Sciatic nerve pain M54.30 and Primary insomnia F51.01 [place] [address], [place] [address] Oct, Hypertension I10 ; Peripheral neuropathy G62.9 ; Type 2 diabetes mellitus without complications E11.9 and COPD (chronic obstructive pulmonary disease) J44.9 [place] [address], [place] [address] 79[address] Oct, Peripheral neuropathy G62.9 [place] [address] [place] [address] 49578- 2771 Sep, Peripheral neuropathy G62.9 [place] [address] [place] [address] 99892- 7425 Aug, Peripheral neuropathy G62.9 [facility] [address] [place] [address] 79555- 4301 Jul, [facility] [id number] [place] [address] 59569- 6216 Jul, [facility] [id number] [place] [address] 29117- 3283 Jul, Type 2 diabetes mellitus without complications E11.9 ; Splenic artery aneurysm I72.8 ; Pancreatic lesion K86.9 ; Primary insomnia F51.01 ; Peripheral neuropathy G62.9 and Carpal tunnel syndrome of right wrist G56.01 [facility] [id number] [place] [address] 40554- 4589 Jun, Type 2 diabetes mellitus without complications E11.9 and Leg cramps R25.2 [facility] [id number] [place] [address] 84871- 8314 Jun, [facility] [id number] [place] [address] 13850- 2600 May, Splenic artery aneurysm I72.8 ; Pancreatic lesion K86.9 ; Hypertension I10 and Urinary tract infection without hematuria, site unspecified N39.0 [facility] [id number] [place] [address] 83430- 3202 May, Leg cramps R25.2 [facility] [id number] [place] [address] 63570- 2466 May, [facility] [id number] [place] [address] 80534- 2482 May, Type 2 diabetes mellitus without complications E11.9 and GERD (gastroesophageal reflux disease) K21.9 [facility] [id number] [place] [address] 71301- 9393 Apr, [facility] [id number] [place] [address] 90710- 9502 Apr, [facility] [id number] [address] 2017 [facility] [id number] [place] [address] 12050- 4479 Apr, [facility] [id number] [place] [address] 06375- 2783 Apr, Type 2 diabetes mellitus without complications E11.9 ; GERD (gastroesophageal reflux disease) K21.9 ; Peripheral neuropathy G62.9 ; Hypertension I10 ; Sciatic nerve pain M54.30 ; Morbid obesity E66.01 ; COPD ( chronic obstructive pulmonary disease) J44.9 ; Pancreatic lesion K86.9 and Splenic artery aneurysm I72.8 [place] [id number] [place] [address] 40681- 0211 March, [place] [id number] [place] [address] 59952- 8971 March, H/O hypercholesterolemia Z86.39 ; Leg cramps R25.2 ; Hypertension I10 and GERD (gastroesophageal reflux disease) K21.9 [facility] [id number] [place] [address] 76103- 0501 Sep, Type 2 diabetes mellitus without complications E11.9 ; GERD (gastroesophageal reflux disease) K21.9 ; Peripheral neuropathy G62.9 ; Hypertension I10 ; Sciatic nerve pain M54.30 ; Morbid obesity E66.01 ; COPD ( chronic obstructive pulmonary disease) J44.9 ; Leg cramps R25.2 ; Other depression F32.8 ; H/O hypercholesterolemia Z86.39 and Degenerative lumbar spinal stenosis M48.06 [place] [address] [place] [address] 31312- 1116 Aug, [facility] [id number] [place] [address] 87729- 9414 Jun, [facility] [id number] [place] [address] 07835- 4574 Jun, [facility] [id number] [place] [address] 58665- 6357 Jun, [place] [id number] [place] [address] 80928- 6775 May, Peripheral neuropathy G62.9 ; Sciatic nerve pain M54.30 ; Morbid obesity E66.01 ; Other depression F32.8 and Lumbago with sciatica, right side M54.41 [place] [address] 11185- 0405 Apr, [place] [address] 91537- 4997 Apr, Pain in thoracic spine M54.6 ; Other chronic pain G89.29 ; Lumbago with sciatica, left side M54.42 ; Lumbago with sciatica, right side M54.41 ; Onycholysis L60.1 and Intractable vomiting with nausea, vomiting of unspecified type R11.2 [place] [address] 30944- 3406 March, [place] [address] 14026- 8116 March, Type 2 diabetes mellitus without complications E11.9 ; Onycholysis L60.1 and Encounter for screening colonoscopy Z12.11 [place] [id number] [place] [address] 49599- 9870 Feb, [address] 59510- 6394 Feb, Peripheral neuropathy G62.9 and Leg cramps R25.2 [facility] [address] 41805 -7288 Jan, Influenza A J10.1 and Body aches R52 [address] 93890- 0697 09 Dec, 2015 GERD (gastroesophageal reflux disease) K21.9 ; Peripheral neuropathy G62.9 ; Hypertension I10 ; Morbid obesity E66.01 ; Encounter for immunization Z23 ; Type 2 diabetes mellitus without complications E11.9 and COPD (chronic obstructive pulmonary disease) J44.9 [facility] [address], [place] [address]- 2507 Dec, [facility] [address] [place] [address] 52374- 1219 Dec, Morbid obesity E66.01 [facility] [id number] [place] [address] 19753- 1685 Nov, [facility] [id number] [place] [address] 28485- 8465 Nov, [facility] [id number] [place] [address] 62359- 4662 Nov, [facility] [id number] [place] [address] 46151- 7937 Nov, [facility] [id number] [place] [address] 44348- 6909 Oct, [facility] [address] [place] [address] 61994- 3428 Oct, [facility] [id number] [place] [address] 88246- 9007 Oct, [facility] [address] [place] [address] 65982- 9921 Oct, [facility] [address] [place] [address] 35179- 0057 Sep, Type 2 diabetes mellitus without complications E11.9 ; GERD (gastroesophageal reflux disease) K21.9 ; Peripheral neuropathy G62.9 ; Hypertension I10 ; H/O hypercholesterolemia Z86.39 ; Morbid obesity E66.01 and Sciatic nerve pain M54.30 [facility] [address], [place] [address]- 6505 Sep, General medical exam Z00.00 ; Abnormal chest x-ray R93.8 ; Type 2 diabetes mellitus without complications E11.9 and GERD (gastroesophageal reflux disease) K21.9 [place] [id number], [place] [address]- 8789 10 Sep, 2015 General medical exam Z00.00 ; Type 2 diabetes mellitus without complications E11.9 ; GERD (gastroesophageal reflux disease) K21.9 ; Abnormal chest x-ray R93.8 ; Leg cramps R25.2 ; Dietary counseling Z71.3 ; Exercise counseling Z71.89 ; Peripheral neuropathy G62.9 ; Hypertension I10 ; H/ O hypercholesterolemia Z86.39 ; Sciatic nerve pain M54.30 and Morbid obesity E66.01 [place] [id number], [place] [address]- 2179 March, [place] [id number] [place] [address] 45912- 3331 Sep, IMMUNIZATIONS No Known Immunizations SOCIAL HISTORY Never Assessed REASON FOR VISIT Refill request PLAN OF CARE VITAL SIGNS MEDICATIONS Medication Instructions Dosage Frequency Start Date End Date Duration Status Norvasc 10 mg Orally Once a day 1 tablet 24h 16 days Active RESULTS No Results PROCEDURES No Known procedures INSTRUCTIONS MEDICATIONS ADMINISTERED No Known Medications MEDICAL [...]
--- OUTSIDE RECORDS SUMMARY | 2019-01-25 17:56 | XMS REPORT ---
Author Author JANETTE LOPES Organization [facility] Address [address] [place] [address] Care Team Providers Care Senior Project Manager Engineering Name Role Phone JANETTE LOPES Unavailable PROBLEMS Type Condition ICD9-CM Code UYR50-ZD Code Onset Dates Condition Status SNOMED Code Problem Primary insomnia F51.01 Active 3511211 Problem Lumbago with sciatica, right side M54.41 Active 32258742 Problem Hypertriglyceridemia E78.1 Active 200145279 Problem Other chronic pain G89.29 Active 99336136 Problem Lumbago with sciatica, left side M54.42 Active 157142527 Problem Osteoarthritis of spine with radiculopathy, cervical region M47.22 Active 383332484 Problem Type 2 diabetes mellitus with diabetic neuropathy, without long-term current use of insulin E11.40 Active 34720107 Problem Type 2 diabetes mellitus with other specified complication, without long-term current use of insulin E11.69 Active 47669600 Problem Sciatic nerve pain, unspecified laterality M54.30 Active 05752866 Problem Sciatic nerve pain M54.30 Active 50447468 Problem COPD (chronic obstructive pulmonary disease) J44.9 Active 94359817 Problem Pancreatic lesion K86.9 Active 4383496 Problem Hypertension I10 Active 82238265 Problem Splenic artery aneurysm I72.8 Active 89398101 Problem GERD (gastroesophageal reflux disease) K21.9 Active 335192336 Problem Carpal tunnel syndrome of right wrist G56.01 Active [id number] ALLERGIES No Information ENCOUNTERS Encounter Location Date Diagnosis [facility] [address] [facility] [id number] [address] Aug, 2018 Sciatic nerve pain, unspecified laterality M54.30 and Peripheral neuropathy G62.9 [facility] [address] [facility] [id number], [place] [address] Jul, Hypertension I10 ; Type 2 diabetes mellitus with other specified complication, without long-term current use of insulin E11.69 and Sciatic nerve pain, unspecified laterality M54.30 [place] [address] [address] Jul, Type 2 diabetes mellitus with other specified complication, without long-term current use of insulin E11.69 ; BMI 45.0-49.9, adult Z68.42 ; Sciatic nerve pain, unspecified laterality M54.30 ; Hypertension I10 ; Lumbago with sciatica, left side M54.42 ; Lumbago with sciatica, right side M54.41 and Other chronic pain G89.29 [place] [address] [address] Jul, [place] [address] [address] Jul, Degenerative lumbar spinal stenosis M48.06 and COPD ( chronic obstructive pulmonary disease) J44.9 [place] [address] [address] Jun, Type 2 diabetes mellitus with diabetic neuropathy, without long-term current use of insulin E11.40 [place] [address] [address] Jun, Primary insomnia F51.01 and Degenerative lumbar spinal stenosis M48.06 [place] [address] [address] Apr, Type 2 diabetes mellitus with diabetic neuropathy, without long-term current use of insulin E11.40 ; Primary insomnia F51.01 and Hypertension I10 [place] [address] [place] [id number] [place] [address] 24[address] March, Primary insomnia F51.01 [place] [address] [address] March, Osteoarthritis of spine with radiculopathy, cervical region M47.22 [place] [address] [address]- [address] Feb, Type 2 diabetes mellitus with diabetic neuropathy, without long-term current use of insulin E11.40 [facility] [address] [place] [id number] [place] [address] 89196- 2737 Feb, [facility] [address] [place] [id number] [place] [address] 59603- 2959 Feb, [place] [address] [place] [id number] [place] [address] 86829- 4035 Feb, Actinic keratosis L57.0 and BMI 40.0-44.9, adult Z68.41 [place] [address] [place] [id number] [place] [address] 21179- 2031 Feb, Type 2 diabetes mellitus without complications E11.9 [place] [address] [place] [id number] [place] [address] 42273- 2449 Jan, Hypertension I10 ; BMI 40.0-44.9, adult Z68.41 ; Cervicalgia M54.2 and Carpal tunnel syndrome of right wrist G56.01 [place] [address] [place] [id number] [place] [address] 44393- 2634 Jan, [place] [address] [place] [id number] [place] [address] 81644- 8620 Jan, [place] [address] [place] [id number] [place] [address] 12412- 7618 Jan, [place] [address] [place] [id number] [place] [address] 18741- 6874 Dec, Hypertension I10 [place] [address] [place] [id number] [place] [address] 38515- 3380 Dec, [place] [address] [place] [id number] [place] [address] 18687- 4245 Nov, Degenerative lumbar spinal stenosis M48.06 and COPD ( chronic obstructive pulmonary disease) J44.9 [place] [address] [place] [id number] [place] [address] 54147- 0359 Nov, Onycholysis L60.1 [facility] [address] [place] [id number] [place] [address] 52608- 6815 Nov, Type 2 diabetes mellitus with diabetic neuropathy, without long-term current use of insulin E11.40 ; COPD (chronic obstructive pulmonary disease) J44.9 ; GERD (gastroesophageal reflux disease) K21.9 ; Hypertriglyceridemia E78.1 ; Hypertension I10 ; Degenerative lumbar spinal stenosis M48.06 ; Lumbago with sciatica, right side M54.41 ; Sciatic nerve pain M54.30 and Primary insomnia F51.01 [place] [address] 94[address]- 8658 Oct, Hypertension I10 ; Peripheral neuropathy G62.9 ; Type 2 diabetes mellitus without complications E11.9 and COPD (chronic obstructive pulmonary disease) J44.9 [place] [address] 37[address]- 0938 Oct, Peripheral neuropathy G62.9 [place] [address] 28830- 1241 Sep, Peripheral neuropathy G62.9 [place] [address] 21328- 0358 Aug, Peripheral neuropathy G62.9 [place] [address] [place] [id number] [place] [address] 96578- 5963 Jul, [place] [address] 7[address]- [address] Jul, [place] [address] [place] [id number] [place] [address] 75289- 9315 Jul, Type 2 diabetes mellitus without complications E11.9 ; Splenic artery aneurysm I72.8 ; Pancreatic lesion K86.9 ; Primary insomnia F51.01 ; Peripheral neuropathy G62.9 and Carpal tunnel syndrome of right wrist G56.01 [facility] [address] [place] [id number] [place] [address] 83162- 3365 Jun, Type 2 diabetes mellitus without complications E11.9 and Leg cramps R25.2 [facility] [id number] [place] [address] 35265- 9982 Jun, [facility] [address] [place] [id number] [place] [address] 91621- 7844 May, Splenic artery aneurysm I72.8 ; Pancreatic lesion K86.9 ; Hypertension I10 and Urinary tract infection without hematuria, site unspecified N39.0 [facility] [address] [place] [id number] [place] [address] 24004- 1200 May, Leg cramps R25.2 [facility] [address] [place] [id number] [place] [address] 16824- 6154 May, [facility] [address] [place] [id number] [place] [address] 31195- 5276 May, Type 2 diabetes mellitus without complications E11.9 and GERD (gastroesophageal reflux disease) K21.9 [facility] [address] [place] [id number] [place] [address] 91148- 5183 Apr, [facility] [address] [place] [id number] [place] [address] 82028- 7373 Apr, [facility] [address] [place] [id number] [place] [address] 85701- 5849 Apr, [facility] [address] [place] [id number] [place] [address] 56976- 9463 Apr, [facility] [address] [place] [id number] [place] [address] 14075- 2857 Apr, Type 2 diabetes mellitus without complications E11.9 ; GERD (gastroesophageal reflux disease) K21.9 ; Peripheral neuropathy G62.9 ; Hypertension I10 ; Sciatic nerve pain M54.30 ; Morbid obesity E66.01 ; COPD ( chronic obstructive pulmonary disease) J44.9 ; Pancreatic lesion K86.9 and Splenic artery aneurysm I72.8 [facility] [id number] [place] [address] 46423- 4156 March, [facility] [address] [id number] [address] March, H/O hypercholesterolemia Z86.39 ; Leg cramps R25.2 ; Hypertension I10 and GERD (gastroesophageal reflux disease) K21.9 [facility] [address] [place] [id number] [place] [address] 60131- 5922 Sep, Type 2 diabetes mellitus without complications E11.9 ; GERD (gastroesophageal reflux disease) K21.9 ; Peripheral neuropathy G62.9 ; Hypertension I10 ; Sciatic nerve pain M54.30 ; Morbid obesity E66.01 ; COPD ( chronic obstructive pulmonary disease) J44.9 ; Leg cramps R25.2 ; Other depression F32.8 ; H/O hypercholesterolemia Z86.39 and Degenerative lumbar spinal stenosis M48.06 [place] [address] [place] [id number] [place] [address] 26465- 6996 Aug, [place] [address] [place] [id number] [place] [address] 40403- 4124 Jun, [place] [address] [place] [id number] [place] [address] 47009- 4061 Jun, [place] [address] [place] [id number] [place] [address] 50685- 4443 Jun, [place] [address] [place] [id number] [place] [address] 54274- 2767 May, Peripheral neuropathy G62.9 ; Sciatic nerve pain M54.30 ; Morbid obesity E66.01 ; Other depression F32.8 and Lumbago with sciatica, right side M54.41 [facility] [address] [place] [id number] [place] [address] 68021- 5932 Apr, [facility] [address] [place] [id number] [place] [address] 10598- 8955 Apr, Pain in thoracic spine M54.6 ; Other chronic pain G89.29 ; Lumbago with sciatica, left side M54.42 ; Lumbago with sciatica, right side M54.41 ; Onycholysis L60.1 and Intractable vomiting with nausea, vomiting of unspecified type R11.2 [facility] [address] [place] [id number] [place] [address] 35381- 0703 March, [place] [address] 9[address]- 9260 March, Type 2 diabetes mellitus without complications E11.9 ; Onycholysis L60.1 and Encounter for screening colonoscopy Z12.11 [facility] [address] [address]- [address] Feb, [place] [address] 95475- 8060 Feb, Peripheral neuropathy G62.9 and Leg cramps R25.2 [facility] [address] [address] -[address]9 Jan, Influenza A J10.1 and Body aches R52 [place] [address] 44848- 1533 09 Dec, 2015 GERD (gastroesophageal reflux disease) K21.9 ; Peripheral neuropathy G62.9 ; Hypertension I10 ; Morbid obesity E66.01 ; Encounter for immunization Z23 ; Type 2 diabetes mellitus without complications E11.9 and COPD (chronic obstructive pulmonary disease) J44.9 [place] [address] [place] [id number] [place] [address] 70361- 1734 Dec, [place] [address] [place] [id number] [place] [address] 91147- 4175 Dec, Morbid obesity E66.01 [place] [address] 98706- 4968 Nov, [place] [address] 21928- 7522 Nov, [place] [address] 18084- 8178 Nov, [place] [address] [place] [address]- [address] 08 Nov, 2015 [facility] [address] [place] [id number] [place] [address] 23762- 2485 Oct, [facility] [address] [place] [id number] [place] [address] 14181- 0101 Oct, [place] [address] [place] [id number] [place] [address] 63857- 7187 Oct, [place] [address] [place] [id number] [place] [address] 05723- 7647 Oct, [place] [address] [place] [id number] [place] [address] 21248- 8218 Sep, Type 2 diabetes mellitus without complications E11.9 ; GERD (gastroesophageal reflux disease) K21.9 ; Peripheral neuropathy G62.9 ; Hypertension I10 ; H/O hypercholesterolemia Z86.39 ; Morbid obesity E66.01 and Sciatic nerve pain M54.30 [place] [address] [place] [id number] [place] [address] 24761- 3852 11 Sep, 2015 General medical exam Z00.00 ; Abnormal chest x-ray R93.8 ; Type 2 diabetes mellitus without complications E11.9 and GERD (gastroesophageal reflux disease) K21.9 [place] [address] [place] [id number] [place] [address] 86759- 5328 10 Sep, 2015 General medical exam Z00.00 ; Type 2 diabetes mellitus without complications E11.9 ; GERD (gastroesophageal reflux disease) K21.9 ; Abnormal chest x-ray R93.8 ; Leg cramps R25.2 ; Dietary counseling Z71.3 ; Exercise counseling Z71.89 ; Peripheral neuropathy G62.9 ; Hypertension I10 ; H/ O hypercholesterolemia Z86.39 ; Sciatic nerve pain M54.30 and Morbid obesity E66.01 [place] [address] [place] [id number] [place] [address] 57023- 6316 March, [place] [address] [place] [id number] [place] [address] 61423- 9294 Sep, IMMUNIZATIONS No Known Immunizations SOCIAL HISTORY Never Assessed REASON FOR VISIT Refill request PLAN OF CARE VITAL SIGNS MEDICATIONS Medication Instructions Dosage Frequency Start Date End Date Duration Status Cyclobenzaprine HCl 10 mg Orally Three times a day 1 tablet as needed 8h Active Trazodone HCl 300 MG Orally Once a day 0.5 tablet at bedtime 24h Active RESULTS No Results PROCEDURES No Known [...]
--- OUTSIDE RECORDS SUMMARY | 2019-01-25 17:56 | XMS REPORT ---
Author Author [facility] Address [address] [place] [address] Care Team Providers Care Radiology Transporter Name Role Phone MEENA WILKERSONY Unavailable PROBLEMS Type Condition ICD9-CM Code JXD21-HV Code Onset Dates Condition Status SNOMED Code Problem Primary insomnia F51.01 Active 3216482 Problem Lumbago with sciatica, right side M54.41 Active 40836458 Problem Hypertriglyceridemia E78.1 Active 838110304 Problem Other chronic pain G89.29 Active 10049320 Problem Lumbago with sciatica, left side M54.42 Active 856512783 Problem Osteoarthritis of spine with radiculopathy, cervical region M47.22 Active 825392042 Problem Type 2 diabetes mellitus with diabetic neuropathy, without long-term current use of insulin E11.40 Active 40586331 Problem Type 2 diabetes mellitus with other specified complication, without long-term current use of insulin E11.69 Active 58970404 Problem Sciatic nerve pain, unspecified laterality M54.30 Active 26152583 Problem Sciatic nerve pain M54.30 Active 79437207 Problem COPD (chronic obstructive pulmonary disease) J44.9 Active 64381141 Problem Pancreatic lesion K86.9 Active 4088936 Problem Hypertension I10 Active 25309577 Problem Splenic artery aneurysm I72.8 Active 58253321 Problem GERD (gastroesophageal reflux disease) K21.9 Active 243646006 Problem Carpal tunnel syndrome of right wrist G56.01 Active [id number] ALLERGIES No Information ENCOUNTERS Encounter Location Date Diagnosis [facility] [id number] [address] Sep, Closed fracture of multiple ribs of left side, initial encounter S22.42XA and BMI 45.0-49.9, adult Z68.42 [facility] [address] [facility] [id number] [address] Sep, [place] [id number] [place] [address] 15 Aug, 2018 Sciatic nerve pain, unspecified laterality M54.30 and Peripheral neuropathy G62.9 [place] [id number] [place] [address] 70051- 5612 27 Jul, 2018 Hypertension I10 ; Type 2 diabetes mellitus with other specified complication, without long-term current use of insulin E11.69 and Sciatic nerve pain, unspecified laterality M54.30 [place] [id number] [place] [address] 90430- 2409 25 Jul, 2018 Type 2 diabetes mellitus with other specified complication, without long-term current use of insulin E11.69 ; BMI 45.0-49.9, adult Z68.42 ; Sciatic nerve pain, unspecified laterality M54.30 ; Hypertension I10 ; Lumbago with sciatica, left side M54.42 ; Lumbago with sciatica, right side M54.41 and Other chronic pain G89.29 [place] [id number] [place] [address] 59763- 5495 Jul, [place] [address] [address] Jul, Degenerative lumbar spinal stenosis M48.06 and COPD ( chronic obstructive pulmonary disease) J44.9 [place] [id number] [place] [address] 52791- 4437 Jun, Type 2 diabetes mellitus with diabetic neuropathy, without long-term current use of insulin E11.40 [place] [id number] [place] [address] 02151- 5825 Jun, Primary insomnia F51.01 and Degenerative lumbar spinal stenosis M48.06 [place] [address] [address]- [address] Apr, Type 2 diabetes mellitus with diabetic neuropathy, without long-term current use of insulin E11.40 ; Primary insomnia F51.01 and Hypertension I10 [place] [id number] [place] [address] 91090- 0779 March, Primary insomnia F51.01 [place] [id number] [place] [address] 85040- 2328 March, Osteoarthritis of spine with radiculopathy, cervical region M47.22 [place] [id number] [place] [address] 89349- 9657 Feb, Type 2 diabetes mellitus with diabetic neuropathy, without long-term current use of insulin E11.40 [place] [id number] [place] [address] 85179- 6671 Feb, [place] [address] 18098- 6228 Feb, [place] [id number] [place] [address] 95245- 6516 Feb, Actinic keratosis L57.0 and BMI 40.0-44.9, adult Z68.41 [place] [id number] [place] [address] 74363- 0801 Feb, Type 2 diabetes mellitus without complications E11.9 [place] [id number] [place] [address] 84455- 8278 Jan, Hypertension I10 ; BMI 40.0-44.9, adult Z68.41 ; Cervicalgia M54.2 and Carpal tunnel syndrome of right wrist G56.01 [place] [id number] [place] [address] 61406- 1031 Jan, [place] [id number] [place] [address] 48376- 2987 Jan, [place] [address] 42695- 0514 Jan, [place] [id number] [place] [address] 59360- 7869 Dec, Hypertension I10 [place] [id number] [place] [address] 94795- 4243 Dec, [facility] [id number] [place] [address] 05334- 8195 Nov, Degenerative lumbar spinal stenosis M48.06 and COPD ( chronic obstructive pulmonary disease) J44.9 [place] [id number] [place] [address] 71769- 8963 Nov, Onycholysis L60.1 [place] [id number] [place] [address] 33441- 8500 Nov, Type 2 diabetes mellitus with diabetic neuropathy, without long-term current use of insulin E11.40 ; COPD (chronic obstructive pulmonary disease) J44.9 ; GERD (gastroesophageal reflux disease) K21.9 ; Hypertriglyceridemia E78.1 ; Hypertension I10 ; Degenerative lumbar spinal stenosis M48.06 ; Lumbago with sciatica, right side M54.41 ; Sciatic nerve pain M54.30 and Primary insomnia F51.01 [place] [id number] [place] [address] 02666- 7077 Oct, Hypertension I10 ; Peripheral neuropathy G62.9 ; Type 2 diabetes mellitus without complications E11.9 and COPD (chronic obstructive pulmonary disease) J44.9 [place] [id number] [place] [address] 57712- 9908 Oct, Peripheral neuropathy G62.9 [place] [id number] [place] [address] 16899- 1621 Sep, Peripheral neuropathy G62.9 [place] [id number] [place] [address] 24672- 9271 Aug, Peripheral neuropathy G62.9 [place] [id number] [place] [address] 87525- 6279 Jul, [place] [id number] [place] [address] 75319- 9014 Jul, [place] [id number] [place] [address] 13610- 3906 Jul, Type 2 diabetes mellitus without complications E11.9 ; Splenic artery aneurysm I72.8 ; Pancreatic lesion K86.9 ; Primary insomnia F51.01 ; Peripheral neuropathy G62.9 and Carpal tunnel syndrome of right wrist G56.01 [facility] [id number] [place] [address] 50246- 9463 Jun, Type 2 diabetes mellitus without complications E11.9 and Leg cramps R25.2 [facility] [id number] [place] [address] 07450- 0957 Jun, [facility] [id number] [place] [address] 39166- 2019 May, Splenic artery aneurysm I72.8 ; Pancreatic lesion K86.9 ; Hypertension I10 and Urinary tract infection without hematuria, site unspecified N39.0 [facility] [id number] [place] [address] 28337- 2690 May, Leg cramps R25.2 [facility] [id number] [place] [address] 28995- 3838 May, [facility] [id number] [place] [address] 91328- 1304 May, Type 2 diabetes mellitus without complications E11.9 and GERD (gastroesophageal reflux disease) K21.9 [facility] [id number] [address] Apr, [facility] [id number] [place] [address] 90239- 9149 Apr, [facility] [id number] [place] [address] 19112- 5353 Apr, [facility] [id number] [place] [address] 09150- 0132 Apr, [facility] [id number] [place] [address] 47742- 7011 Apr, Type 2 diabetes mellitus without complications E11.9 ; GERD (gastroesophageal reflux disease) K21.9 ; Peripheral neuropathy G62.9 ; Hypertension I10 ; Sciatic nerve pain M54.30 ; Morbid obesity E66.01 ; COPD ( chronic obstructive pulmonary disease) J44.9 ; Pancreatic lesion K86.9 and Splenic artery aneurysm I72.8 [place] [id number] [place] [address] 23389- 8689 March, [place] [address] 106[address]- [address]861 March, H/O hypercholesterolemia Z86.39 ; Leg cramps R25.2 ; Hypertension I10 and GERD (gastroesophageal reflux disease) K21.9 [place] [address] 22247- 1643 Sep, Type 2 diabetes mellitus without complications E11.9 ; GERD (gastroesophageal reflux disease) K21.9 ; Peripheral neuropathy G62.9 ; Hypertension I10 ; Sciatic nerve pain M54.30 ; Morbid obesity E66.01 ; COPD ( chronic obstructive pulmonary disease) J44.9 ; Leg cramps R25.2 ; Other depression F32.8 ; H/O hypercholesterolemia Z86.39 and Degenerative lumbar spinal stenosis M48.06 [place] [address] 49010- 5530 Aug, [place] [id number] [place] [address] 44812- 3881 Jun, [place] [id number] [place] [address] 59889- 3952 Jun, [place] [address] 88793- 0671 Jun, [place] [address] 62709- 6145 May, Peripheral neuropathy G62.9 ; Sciatic nerve pain M54.30 ; Morbid obesity E66.01 ; Other depression F32.8 and Lumbago with sciatica, right side M54.41 [place] [address] 19679- 5430 22 Apr, 2016 [place] [address] 36000- 2793 07 Apr, 2016 Pain in thoracic spine M54.6 ; Other chronic pain G89.29 ; Lumbago with sciatica, left side M54.42 ; Lumbago with sciatica, right side M54.41 ; Onycholysis L60.1 and Intractable vomiting with nausea, vomiting of unspecified type R11.2 [place] [address] 65412- 1113 31 Mar, [address] 90998- 3194 March, Type 2 diabetes mellitus without complications E11.9 ; Onycholysis L60.1 and Encounter for screening colonoscopy Z12.[address] 66786- 1469 Feb, [address] 14852- 4903 15 Feb, 2016 Peripheral neuropathy G62.9 and Leg cramps R25.2 [facility] [place] [address] [address]441 11 Jan, 2016 Influenza A J10.1 and Body aches R52 [address] 64007- 2840 09 Dec, 2015 GERD (gastroesophageal reflux disease) K21.9 ; Peripheral neuropathy G62.9 ; Hypertension I10 ; Morbid obesity E66.01 ; Encounter for immunization Z23 ; Type 2 diabetes mellitus without complications E11.9 and COPD (chronic obstructive pulmonary disease) J44.[address] 51055- 5568 08 Dec, 2015 [place] [address] 32163- 3714 04 Dec, 2015 Morbid obesity E66.[address] 52711- 0825 Nov, [facility] [address], [place] [address]- 9779 Nov, [facility] [address] [place] [address] 15282- 2208 Nov, [facility] [id number] [place] [address] 49538- 4224 Nov, [facility] [id number] [place] [address] 85755- 3124 Oct, [facility] [id number] [place] [address] 74938- 9536 Oct, [facility] [id number] [place] [address] 66940- 3423 Oct, [facility] [id number] [place] [address] 89662- 0636 Oct, [facility] [address], [place] [address]- [address] Sep, Type 2 diabetes mellitus without complications E11.9 ; GERD (gastroesophageal reflux disease) K21.9 ; Peripheral neuropathy G62.9 ; Hypertension I10 ; H/O hypercholesterolemia Z86.39 ; Morbid obesity E66.01 and Sciatic nerve pain M54.30 [facility] [address], [place] [address] Sep, General medical exam Z00.00 ; Abnormal chest x-ray R93.8 ; Type 2 diabetes mellitus without complications E11.9 and GERD (gastroesophageal reflux disease) K21.9 [facility] [address] [address]- [address] 10 Sep, 2015 General medical exam Z00.00 ; Type 2 diabetes mellitus without complications E11.9 ; GERD (gastroesophageal reflux disease) K21.9 ; Abnormal chest x-ray R93.8 ; Leg cramps R25.2 ; Dietary counseling Z71.3 ; Exercise counseling Z71.89 ; Peripheral neuropathy G62.9 ; Hypertension I10 ; H/ O hypercholesterolemia Z86.39 ; Sciatic nerve pain M54.30 and Morbid obesity E66.01 [facility] [address] [facility] [id number] [place] [address]- [address] March, [facility] [address] [facility] [id number] [place] [address]- 0653 Sep, IMMUNIZATIONS No Known Immunizations SOCIAL HISTORY Never Assessed REASON FOR VISIT ER Notification/Follow up PLAN OF CARE VITAL SIGNS MEDICATIONS No Known Medications RESULTS No Results PROCEDURES No Known procedures [...]
--- OUTSIDE RECORDS SUMMARY | 2019-01-25 17:56 | XMS REPORT ---
Author Author JEET LUNA Organization [facility] Address [address] [place] [address] Care Team Providers Care Metal Window Frame Maker Name Role Phone JEET LUNA Unavailable PROBLEMS Type Condition ICD9-CM Code GZP41-HQ Code Onset Dates Condition Status SNOMED Code Problem Primary insomnia F51.01 Active 4709865 Problem Lumbago with sciatica, right side M54.41 Active 14153623 Problem Hypertriglyceridemia E78.1 Active 687325032 Problem Other chronic pain G89.29 Active 61444622 Problem Lumbago with sciatica, left side M54.42 Active 758562084 Problem Osteoarthritis of spine with radiculopathy, cervical region M47.22 Active 719285013 Problem Type 2 diabetes mellitus with diabetic neuropathy, without long-term current use of insulin E11.40 Active 46079174 Problem Type 2 diabetes mellitus with other specified complication, without long-term current use of insulin E11.69 Active 17917399 Problem Sciatic nerve pain, unspecified laterality M54.30 Active 04884213 Problem Sciatic nerve pain M54.30 Active 59877940 Problem COPD (chronic obstructive pulmonary disease) J44.9 Active 53877969 Problem Pancreatic lesion K86.9 Active 7269034 Problem Hypertension I10 Active 59308717 Problem Splenic artery aneurysm I72.8 Active 72702762 Problem GERD (gastroesophageal reflux disease) K21.9 Active 394099352 Problem Carpal tunnel syndrome of right wrist G56.01 Active [id number] ALLERGIES No Known Allergies ENCOUNTERS Encounter Location Date Diagnosis [facility] [id number], [place] [address] 13 Sep, 2018 Closed fracture of multiple ribs of left side, initial encounter S22.42XA and BMI 45.0-49.9, adult Z68.42 [facility] [address] [facility] [id number] [address] Sep, [place] [id number] [place] [address]56- [address] 15 Aug, 2018 Sciatic nerve pain, unspecified laterality M54.30 and Peripheral neuropathy G62.9 [place] [id number] [place] [address] 93231- 7307 27 Jul, 2018 Hypertension I10 ; Type 2 diabetes mellitus with other specified complication, without long-term current use of insulin E11.69 and Sciatic nerve pain, unspecified laterality M54.30 [place] [id number] [place] [address] 65248- 2003 25 Jul, 2018 Type 2 diabetes mellitus with other specified complication, without long-term current use of insulin E11.69 ; BMI 45.0-49.9, adult Z68.42 ; Sciatic nerve pain, unspecified laterality M54.30 ; Hypertension I10 ; Lumbago with sciatica, left side M54.42 ; Lumbago with sciatica, right side M54.41 and Other chronic pain G89.29 [place] [id number] [place] [address]87- 1982 Jul, [place] [address] [address] Jul, Degenerative lumbar spinal stenosis M48.06 and COPD ( chronic obstructive pulmonary disease) J44.9 [place] [id number] [place] [address] 66925- 3771 Jun, Type 2 diabetes mellitus with diabetic neuropathy, without long-term current use of insulin E11.40 [place] [id number] [place] [address] 36896- 5263 Jun, Primary insomnia F51.01 and Degenerative lumbar spinal stenosis M48.06 [place] [address] [address]- 4296 Apr, Type 2 diabetes mellitus with diabetic neuropathy, without long-term current use of insulin E11.40 ; Primary insomnia F51.01 and Hypertension I10 [place] [address] [place] [address] March, Primary insomnia F51.01 [place] [id number] [place] [address] 75694- 4625 March, Osteoarthritis of spine with radiculopathy, cervical region M47.22 [place] [address] [address]66- 4398 Feb, Type 2 diabetes mellitus with diabetic neuropathy, without long-term current use of insulin E11.40 [place] [id number] [place] [address] 02119- 7107 Feb, [place] [address] 21785- 6652 Feb, [place] [address] 0[address]65- 4897 Feb, Actinic keratosis L57.0 and BMI 40.0-44.9, adult Z68.41 [place] [id number] [place] [address] 98187- 3981 Feb, Type 2 diabetes mellitus without complications E11.9 [place] [id number] [place] [address] 97282- 3830 Jan, Hypertension I10 ; BMI 40.0-44.9, adult Z68.41 ; Cervicalgia M54.2 and Carpal tunnel syndrome of right wrist G56.01 [place] [id number] [place] [address] 25215- 1542 Jan, [place] [id number] [place] [address] 42128- 4129 Jan, [place] [address] 93063- 8017 Jan, [place] [address] 07129- 8509 Dec, Hypertension I10 [place] [address] 50154- 08[address] Dec, [facility] [id number] [place] [address] 82988- 9031 Nov, Degenerative lumbar spinal stenosis M48.06 and COPD ( chronic obstructive pulmonary disease) J44.9 [facility] [id number] [place] [address] 01923- 6284 Nov, Onycholysis L60.1 [place] [id number] [place] [address] 80265- 2414 Nov, Type 2 diabetes mellitus with diabetic neuropathy, without long-term current use of insulin E11.40 ; COPD (chronic obstructive pulmonary disease) J44.9 ; GERD (gastroesophageal reflux disease) K21.9 ; Hypertriglyceridemia E78.1 ; Hypertension I10 ; Degenerative lumbar spinal stenosis M48.06 ; Lumbago with sciatica, right side M54.41 ; Sciatic nerve pain M54.30 and Primary insomnia F51.01 [place] [id number] [place] [address] 56258- 5198 Oct, Hypertension I10 ; Peripheral neuropathy G62.9 ; Type 2 diabetes mellitus without complications E11.9 and COPD (chronic obstructive pulmonary disease) J44.9 [place] [id number] [place] [address] 14441- 6146 Oct, Peripheral neuropathy G62.9 [place] [id number] [place] [address] 12226- 3006 Sep, Peripheral neuropathy G62.9 [place] [id number] [place] [address] 50529- 9453 Aug, Peripheral neuropathy G62.9 [place] [address] 04378- 2384 Jul, [place] [id number] [place] [address] 76201- 6363 Jul, [place] [id number] [place] [address] 24194- 4499 Jul, Type 2 diabetes mellitus without complications E11.9 ; Splenic artery aneurysm I72.8 ; Pancreatic lesion K86.9 ; Primary insomnia F51.01 ; Peripheral neuropathy G62.9 and Carpal tunnel syndrome of right wrist G56.01 [facility] [address] [place] [address] 84540- 1460 Jun, Type 2 diabetes mellitus without complications E11.9 and Leg cramps R25.2 [facility] [id number] [place] [address] 25270- 0720 Jun, [facility] [id number] [place] [address] 58133- 0622 May, Splenic artery aneurysm I72.8 ; Pancreatic lesion K86.9 ; Hypertension I10 and Urinary tract infection without hematuria, site unspecified N39.0 [facility] [id number] [place] [address] 39331- 6864 May, Leg cramps R25.2 [facility] [id number] [place] [address] 37839- 3207 May, [facility] [id number] [place] [address] 69191- 7347 May, Type 2 diabetes mellitus without complications E11.9 and GERD (gastroesophageal reflux disease) K21.9 [facility] [address], [place] [address] Apr, [facility] [id number] [place] [address] 99497- 0290 Apr, [facility] [id number] [place] [address] 92747- 5841 Apr, [facility] [id number] [place] [address] 26354- 8129 Apr, [facility] [id number] [place] [address] 24807- 4906 Apr, Type 2 diabetes mellitus without complications E11.9 ; GERD (gastroesophageal reflux disease) K21.9 ; Peripheral neuropathy G62.9 ; Hypertension I10 ; Sciatic nerve pain M54.30 ; Morbid obesity E66.01 ; COPD ( chronic obstructive pulmonary disease) J44.9 ; Pancreatic lesion K86.9 and Splenic artery aneurysm I72.8 [place] [id number] [place] [address] 23575- 7969 March, [place] [address] 71097- 6100 March, H/O hypercholesterolemia Z86.39 ; Leg cramps R25.2 ; Hypertension I10 and GERD (gastroesophageal reflux disease) K21.9 [place] [address] 72161- 4539 Sep, Type 2 diabetes mellitus without complications E11.9 ; GERD (gastroesophageal reflux disease) K21.9 ; Peripheral neuropathy G62.9 ; Hypertension I10 ; Sciatic nerve pain M54.30 ; Morbid obesity E66.01 ; COPD ( chronic obstructive pulmonary disease) J44.9 ; Leg cramps R25.2 ; Other depression F32.8 ; H/O hypercholesterolemia Z86.39 and Degenerative lumbar spinal stenosis M48.06 [place] [address] 118[address]- 6933 Aug, [place] [id number] [place] [address] 59046- 5455 Jun, [place] [id number] [place] [address] 74006- 3495 Jun, [place] [address] 05646- 4591 Jun, [place] [address] 77542- 5670 May, Peripheral neuropathy G62.9 ; Sciatic nerve pain M54.30 ; Morbid obesity E66.01 ; Other depression F32.8 and Lumbago with sciatica, right side M54.41 [place] [address] 58108- 7749 22 Apr, 2016 [place] [address] 06309- 6744 07 Apr, 2016 Pain in thoracic spine M54.6 ; Other chronic pain G89.29 ; Lumbago with sciatica, left side M54.42 ; Lumbago with sciatica, right side M54.41 ; Onycholysis L60.1 and Intractable vomiting with nausea, vomiting of unspecified type R11.2 [place] [address] 78858- 4338 31 Mar, [address] [address]- 65[address] March, Type 2 diabetes mellitus without complications E11.9 ; Onycholysis L60.1 and Encounter for screening colonoscopy Z12.[address] 6[address]64- 2389 Feb, [address] [address]29- 4120 15 Feb, 2016 Peripheral neuropathy G62.9 and Leg cramps R25.2 [facility] [address] [address] 11 Jan, 2016 Influenza A J10.1 and Body aches R52 [address] 01800- 5341 09 Dec, 2015 GERD (gastroesophageal reflux disease) K21.9 ; Peripheral neuropathy G62.9 ; Hypertension I10 ; Morbid obesity E66.01 ; Encounter for immunization Z23 ; Type 2 diabetes mellitus without complications E11.9 and COPD (chronic obstructive pulmonary disease) J44.[address] [address]- 1922 08 Dec, [address] 47033- 4744 04 Dec, 2015 Morbid obesity E66.[address] [place] [address]- 9184 Nov, [facility] [address] [address]- 2387 Nov, [facility] [address] [place] [address] 03606- 1273 Nov, [facility] [id number] [place] [address] 42515- 6062 Nov, [facility] [id number] [place] [address] 68989- 2790 Oct, [facility] [id number] [place] [address] 84832- 0544 Oct, [facility] [id number] [place] [address] 82832- 5087 Oct, [facility] [id number] [place] [address] 42864- 6464 Oct, [facility] [address], [place] [address]- 9[address] Sep, Type 2 diabetes mellitus without complications E11.9 ; GERD (gastroesophageal reflux disease) K21.9 ; Peripheral neuropathy G62.9 ; Hypertension I10 ; H/O hypercholesterolemia Z86.39 ; Morbid obesity E66.01 and Sciatic nerve pain M54.30 [facility] [address] [place] [address] 63807- 0312 Sep, General medical exam Z00.00 ; Abnormal chest x-ray R93.8 ; Type 2 diabetes mellitus without complications E11.9 and GERD (gastroesophageal reflux disease) K21.9 [facility] [address] [place] [address] 69590- 6579 10 Sep, 2015 General medical exam Z00.00 ; Type 2 diabetes mellitus without complications E11.9 ; GERD (gastroesophageal reflux disease) K21.9 ; Abnormal chest x-ray R93.8 ; Leg cramps R25.2 ; Dietary counseling Z71.3 ; Exercise counseling Z71.89 ; Peripheral neuropathy G62.9 ; Hypertension I10 ; H/ O hypercholesterolemia Z86.39 ; Sciatic nerve pain M54.30 and Morbid obesity E66.01 [facility] [address] [facility] [id number] [place] [address]- 9[address] March, [facility] [address] [facility] [id number] [place] [address]- 2756 Sep, IMMUNIZATIONS No Known Immunizations SOCIAL HISTORY Never Assessed REASON FOR VISIT VIA C Hosp f/u from fracturing 5 ribs Jhony WALKER PLAN OF CARE Activity Details Follow Up w/ PCP, prn Reason:if symptoms worsen or not improving VITAL SIGNS Height 69 in 2018-09-22 Weight 316.2 lbs 2018-09-22 Temperature 97.5 degrees Fahrenheit 2018-09-22 Heart Rate 109 bpm 2018-09-22 Respiratory Rate 22 2018-09-22 BMI 46.69 kg/m2 2018-09-22 Blood pressure systolic 118 mmHg 2018-09-22 Blood pressure diastolic 82 mmHg 2018-09-22 MEDICATIONS Medication Instructions Dosage Frequency Start Date End Date Duration Status Trazodone HCl 50 mg Orally Once a day take 3 tablets at bedtime 24h 90 days Active Gabapentin 300 MG Orally at bedtime 1 capsule Jul, 30 day(s) Active ZyrTEC 10 mg Orally Once a day 1 tablet 24h 30 days Active Breo Ellipta 100-25 MCG/INH Inhalation Once a day 1 puff 24h Active Ventolin HFA 108 (90 Base) MCG/ACT Inhalation every 4 hrs 2 puffs as needed 4h Active Norvasc 10 mg Orally Once a day 1 tablet 24h Active Triamcinolone Acetonide 0.1 % Externally Twice a day 1 application to affected area 12h Active Cyclobenzaprine HCl 10 mg Orally Three times a day 1 tablet as needed 8h Active Metformin HCl 850 MG Orally Twice a day 1 tablet with a meal 12h Active Savella 100 mg Orally 2 times a day 1 tablet 12h 15 Feb, 2016 Active Acetaminophen 500 MG Orally every 6 hrs 1 capsule as needed 6h Active Oxycodone-Acetaminophen 5-325 MG Orally every 6 hrs 1 tablet as needed 6h Active Aspirin 325 MG Orally Once a day 1 tablet 24h 90 days Active Diclofenac Sodium 75 MG Orally Twice a day 1 tablet 12h Active Spiriva HandiHaler 18 MCG Inhalation Once a day 1 capsule 24h Active Protonix 40 mg Orally Once a day 1 tablet 24h May, 90 days Active Lisinopril 10 mg Orally Once a day 1 tablet 24h Active Pravachol 20 mg Orally Once a day 2 capsules 24h 90 days Active Ondansetron 4 MG Orally every 8 hrs 1 tablet on the tongue and allow to dissolve 8h Apr, 30 days Active Trazodone HCl 300 MG Orally Once [...]
--- OUTSIDE RECORDS SUMMARY | 2019-01-25 17:57 | XMS REPORT ---
Author Author NIKI José Organization [facility] Address [address] [place] [address] Care Team Providers Care Car Ferrier Name Role Phone Arnav NIKI Unavailable PROBLEMS Type Condition ICD9-CM Code NOA82-SW Code Onset Dates Condition Status SNOMED Code Problem Primary insomnia F51.01 Active 2302476 Problem Lumbago with sciatica, right side M54.41 Active 26433540 Problem Hypertriglyceridemia E78.1 Active 059173677 Problem Other chronic pain G89.29 Active 70200494 Problem Lumbago with sciatica, left side M54.42 Active 490331388 Problem Osteoarthritis of spine with radiculopathy, cervical region M47.22 Active 374683359 Problem Type 2 diabetes mellitus with diabetic neuropathy, without long-term current use of insulin E11.40 Active 86726339 Problem Type 2 diabetes mellitus with other specified complication, without long-term current use of insulin E11.69 Active 11689125 Problem Sciatic nerve pain, unspecified laterality M54.30 Active 36717445 Problem Sciatic nerve pain M54.30 Active 31190400 Problem COPD (chronic obstructive pulmonary disease) J44.9 Active 97517207 Problem Pancreatic lesion K86.9 Active 3797070 Problem Hypertension I10 Active 58558487 Problem Splenic artery aneurysm I72.8 Active 66694781 Problem GERD (gastroesophageal reflux disease) K21.9 Active 247875040 Problem Carpal tunnel syndrome of right wrist G56.01 Active [id number] ALLERGIES No Known Allergies ENCOUNTERS Encounter Location Date Diagnosis [facility] [id number], [place] [address] Jul, Hypertension I10 ; Type 2 diabetes mellitus with other specified complication, without long-term current use of insulin E11.69 and Sciatic nerve pain, unspecified laterality M54.30 [facility] [id number], [place] [address] Jul, 2018 Type 2 diabetes mellitus with other specified complication, without long-term current use of insulin E11.69 ; BMI 45.0-49.9, adult Z68.42 ; Sciatic nerve pain, unspecified laterality M54.30 ; Hypertension I10 ; Lumbago with sciatica, left side M54.42 ; Lumbago with sciatica, right side M54.41 and Other chronic pain G89.29 [place] [address] [address] Jul, [address] [address] 07 Jul, 2018 Degenerative lumbar spinal stenosis M48.06 and COPD ( chronic obstructive pulmonary disease) J44.[address] [address] Jun, Type 2 diabetes mellitus with diabetic neuropathy, without long-term current use of insulin E11.40 [place] [address] [place] [id number] [place] [address] Jun, Primary insomnia F51.01 and Degenerative lumbar spinal stenosis M48.[address] [address] Apr, Type 2 diabetes mellitus with diabetic neuropathy, without long-term current use of insulin E11.40 ; Primary insomnia F51.01 and Hypertension I10 [place] [address] [place] [id number] [place] [address] March, Primary insomnia F51.01 [place] [address] [address] March, Osteoarthritis of spine with radiculopathy, cervical region M47.22 [place] [address] [place] [id number] [place] [address] Feb, Type 2 diabetes mellitus with diabetic neuropathy, without long-term current use of insulin E11.40 [place] [address] [address] Feb, [place] [address] [place] [id number] [place] [address] Feb, [place] [address] [address] Feb, Actinic keratosis L57.0 and BMI 40.0-44.9, adult Z68.41 [place] [address] [address] Feb, Type 2 diabetes mellitus without complications E11.9 [place] [address] [address] Jan, Hypertension I10 ; BMI 40.0-44.9, adult Z68.41 ; Cervicalgia M54.2 and Carpal tunnel syndrome of right wrist G56.01 [place] [address] [address] Jan, [place] [address] [address] Jan, [place] [address] [address] Jan, [place] [address] [place] [id number] [place] [address] Dec, Hypertension I10 [place] [address] [address] Dec, [place] [address] [address] Nov, Degenerative lumbar spinal stenosis M48.06 and COPD ( chronic obstructive pulmonary disease) J44.9 [place] [address] [address] Nov, Onycholysis L60.1 [place] [address] [address] Nov, Type 2 diabetes mellitus with diabetic neuropathy, without long-term current use of insulin E11.40 ; COPD (chronic obstructive pulmonary disease) J44.9 ; GERD (gastroesophageal reflux disease) K21.9 ; Hypertriglyceridemia E78.1 ; Hypertension I10 ; Degenerative lumbar spinal stenosis M48.06 ; Lumbago with sciatica, right side M54.41 ; Sciatic nerve pain M54.30 and Primary insomnia F51.01 [place] [address] [address] Oct, Hypertension I10 ; Peripheral neuropathy G62.9 ; Type 2 diabetes mellitus without complications E11.9 and COPD (chronic obstructive pulmonary disease) J44.9 [place] [address] [address] Oct, Peripheral neuropathy G62.9 [place] [address] [address] Sep, Peripheral neuropathy G62.9 [place] [address] [address] Aug, Peripheral neuropathy G62.9 [place] [address] [address] Jul, [place] [address] [address] Jul, [place] [address] [address] Jul, Type 2 diabetes mellitus without complications E11.9 ; Splenic artery aneurysm I72.8 ; Pancreatic lesion K86.9 ; Primary insomnia F51.01 ; Peripheral neuropathy G62.9 and Carpal tunnel syndrome of right wrist G56.01 [place] [address] [address] Jun, Type 2 diabetes mellitus without complications E11.9 and Leg cramps R25.2 [place] [address] [address]- [address] Jun, [place] [id number] [place] [address] 60[address] May, Splenic artery aneurysm I72.8 ; Pancreatic lesion K86.9 ; Hypertension I10 and Urinary tract infection without hematuria, site unspecified N39.0 [facility] [address] [id number] [place] [address] May, Leg cramps R25.2 [place] [address] [place] [id number] [place] [address] 9[address]- [address] May, [place] [address] [place] [address] [id number] [place] [address]- 3928 May, Type 2 diabetes mellitus without complications E11.9 and GERD (gastroesophageal reflux disease) K21.9 [place] [address] [place] [id number] [place] [address] 601[address]- [address] Apr, [place] [address] [address] [id number] [place] [address] 25380- 6662 Apr, [place] [address] [address] [id number] [place] [address] 64049- 6[address] Apr, [place] [address] [address] [id number] [place] [address] 03947- 9[address] Apr, [place] [id number] [place] [address] 65[address]- 0984 Apr, Type 2 diabetes mellitus without complications E11.9 ; GERD (gastroesophageal reflux disease) K21.9 ; Peripheral neuropathy G62.9 ; Hypertension I10 ; Sciatic nerve pain M54.30 ; Morbid obesity E66.01 ; COPD ( chronic obstructive pulmonary disease) J44.9 ; Pancreatic lesion K86.9 and Splenic artery aneurysm I72.8 [place] [address] [place] [id number] [place] [address]- [address] March, [place] [id number] [place] [address]- [address] March, H/O hypercholesterolemia Z86.39 ; Leg cramps R25.2 ; Hypertension I10 and GERD (gastroesophageal reflux disease) K21.9 [place] [address] [place] [id number] [place] [address] 6[address]34- 59[address] Sep, Type 2 diabetes mellitus without complications E11.9 ; GERD (gastroesophageal reflux disease) K21.9 ; Peripheral neuropathy G62.9 ; Hypertension I10 ; Sciatic nerve pain M54.30 ; Morbid obesity E66.01 ; COPD ( chronic obstructive pulmonary disease) J44.9 ; Leg cramps R25.2 ; Other depression F32.8 ; H/O hypercholesterolemia Z86.39 and Degenerative lumbar spinal stenosis M48.06 [place] [address] [place] [id number] [place] [address]- [address] Aug, [place] [address] [address] Jun, [place] [address] [address] Jun, [place] [address] [address] Jun, [place] [address] [place] [id number] [place] [address] 58640- 2414 May, Peripheral neuropathy G62.9 ; Sciatic nerve pain M54.30 ; Morbid obesity E66.01 ; Other depression F32.8 and Lumbago with sciatica, right side M54.41 [place] [address] [address] [id number] [place] [address] 02550- [address] Apr, [place] [address] [place] [address] [id number] [place] [address] 17801- 4786 Apr, Pain in thoracic spine M54.6 ; Other chronic pain G89.29 ; Lumbago with sciatica, left side M54.42 ; Lumbago with sciatica, right side M54.41 ; Onycholysis L60.1 and Intractable vomiting with nausea, vomiting of unspecified type R11.2 [place] [address] [place] [id number] [place] [address]- 5[address] March, [place] [address] [place] [id number] [place] [address] 14627- 8704 March, Type 2 diabetes mellitus without complications E11.9 ; Onycholysis L60.1 and Encounter for screening colonoscopy Z12.11 [facility] [address] [address] Feb, [place] [address] [address] 15 Feb, 2016 Peripheral neuropathy G62.9 and Leg cramps R25.2 [facility] [address] [address] Jan, Influenza A J10.1 and Body aches R52 [place] [address] [address]- [address] 09 Dec, 2015 GERD (gastroesophageal reflux disease) K21.9 ; Peripheral neuropathy G62.9 ; Hypertension I10 ; Morbid obesity E66.01 ; Encounter for immunization Z23 ; Type 2 diabetes mellitus without complications E11.9 and COPD (chronic obstructive pulmonary disease) J44.9 [place] [address] [address]- [address] Dec, [facility] [address] [address] 04 Dec, 2015 Morbid obesity E66.01 [place] [address] 18[address]- [address] Nov, [place] [address] [address]- [address] Nov, [place] [address] [address]- [address] Nov, [facility] [address] [place] [id number] [place] [address] 0[address]22- [address] Nov, [place] [address] 9[address]- 269[address] Oct, [place] [id number] [place] [address] 31720- 5717 Oct, [place] [address] [place] [id number] [place] [address] 49115- 2523 Oct, [place] [address] [place] [id number] [place] [address] 20771- 6709 Oct, [place] [address] [address]- [address] Sep, Type 2 diabetes mellitus without complications E11.9 ; GERD (gastroesophageal reflux disease) K21.9 ; Peripheral neuropathy G62.9 ; Hypertension I10 ; H/O hypercholesterolemia Z86.39 ; Morbid obesity E66.01 and Sciatic nerve pain M54.30 [place] [address] [place] [id number] [place] [address] 10163- 7925 11 Sep, 2015 General medical exam Z00.00 ; Abnormal chest x-ray R93.8 ; Type 2 diabetes mellitus without complications E11.9 and GERD (gastroesophageal reflux disease) K21.9 [place] [address] [place] [id number] [place] [address] 71316- 8765 10 Sep, 2015 General medical exam Z00.00 ; Type 2 diabetes mellitus without complications E11.9 ; GERD (gastroesophageal reflux disease) K21.9 ; Abnormal chest x-ray R93.8 ; Leg cramps R25.2 ; Dietary counseling Z71.3 ; Exercise counseling Z71.89 ; Peripheral neuropathy G62.9 ; Hypertension I10 ; H/ O hypercholesterolemia Z86.39 ; Sciatic nerve pain M54.30 and Morbid obesity E66.01 [place] [address] [place] [id number] [place] [address] 27219- 8697 March, [place] [address] [address]- 6[address] Sep, IMMUNIZATIONS No Known Immunizations SOCIAL HISTORY Never Assessed REASON FOR VISIT [id number], Pt has c/o bilateral leg pain PLAN OF CARE Activity Details Follow Up 3 Months, prn Reason:CHM/DM w/ Tamara VITAL SIGNS Height 69 in 2018-08-04 Weight 307.8 lbs 2018-08-04 Temperature 97.7 degrees Fahrenheit 2018-08-04 Heart Rate 88 bpm 2018-08-04 Respiratory Rate 22 2018-08-04 BMI 45.45 kg/m2 2018-08-04 Blood pressure systolic 122 mmHg 2018-08-04 Blood pressure diastolic 78 mmHg 2018-08-04 MEDICATIONS Medication Instructions Dosage Frequency Start Date End Date Duration Status Savella 100 mg Orally 2 times a day 1 tablet 12h 15 Feb, 2016 Active Lisinopril 10 mg Orally Once a day TAKE ONE TABLET BY MOUTH DAILY 24h Active Protonix 40 mg Orally Once a day 1 tablet 24h 10 May, 2017 90 days Active Aspirin 325 MG Orally Once a day 1 tablet 24h 90 days Active Trazodone HCl 50 mg Orally Once a day take 3 tablets at bedtime 24h 90 days Active Ondansetron 4 MG Orally every 8 hrs 1 tablet on the tongue and allow to dissolve 8h Apr, 30 days Active Norvasc 10 mg Orally Once a day 1 tablet 24h Active ZyrTEC 10 mg Orally Once a day 1 tablet 24h 30 days Active Trazodone HCl 300 MG Orally Once a day 1/2 tablet at bedtime as needed 24h 30 days Not-Taking Pravachol 20 mg Orally Once a day 2 capsules 24h 90 days Active Breo Ellipta 100-25 MCG/INH Inhalation Once a day 1 puff 24h Active Spiriva HandiHaler 18 MCG Inhalation Once a day 1 capsule 24h Active Metformin HCl 850 MG Orally Twice a day 1 tablet with meals 12h Active Acetaminophen 500 MG Orally every 6 hrs 1 capsule as needed 6h Active Triamcinolone Acetonide 0.1 % Externally Twice a day 1 application to affected area 12h Active Cyclobenzaprine HCl 10 mg Orally Three times a day 1 tablet as needed 8h Active Ventolin HFA 108 (90 Base) MCG/ACT Inhalation every 4 hrs 2 puffs as needed 4h Active Diclofenac Sodium 75 MG Orally Twice a day 1 tablet 12h Active Gabapentin 300 MG Orally at bedtime 1 capsule Jul, 30 day(s) Active RESULTS Name Result Date Reference Range A1C (IN HOUSE) 2018-08-04 A1C IN HOUSE 6.2 4.3 - 5.6 % Previous A1c 5.8 Lot [id number] Exp date 01/2020 PROCEDURES Procedure Date Ordered Result Body Site GLYCATED HEMOGLOBIN TEST Aug 04, 2018 INSTRUCTIONS MEDICATIONS ADMINISTERED No Known Medications [...]
--- OUTSIDE RECORDS SUMMARY | 2019-01-25 17:57 | XMS REPORT ---
Author Author NIKI José Organization [facility] Address [address] [place] [address] Care Team Providers Care Tie Puller Name Role Phone Arnav NIKI Unavailable PROBLEMS Type Condition ICD9-CM Code [id number] Code Onset Dates Condition Status SNOMED Code Problem Primary insomnia F51.01 Active 8623745 Problem Lumbago with sciatica, right side M54.41 Active 25207505 Problem Hypertriglyceridemia E78.1 Active 645983667 Problem Other chronic pain G89.29 Active 18873455 Problem Lumbago with sciatica, left side M54.42 Active 132807160 Problem Osteoarthritis of spine with radiculopathy, cervical region M47.22 Active 267895288 Problem Type 2 diabetes mellitus with diabetic neuropathy, without long-term current use of insulin E11.40 Active 69727912 Problem Type 2 diabetes mellitus with other specified complication, without long-term current use of insulin E11.69 Active 65760086 Problem Sciatic nerve pain, unspecified laterality M54.30 Active 03136110 Problem Sciatic nerve pain M54.30 Active 73358795 Problem COPD (chronic obstructive pulmonary disease) J44.9 Active 09970381 Problem Pancreatic lesion K86.9 Active 9381014 Problem Hypertension I10 Active 04343065 Problem Splenic artery aneurysm I72.8 Active 61923771 Problem GERD (gastroesophageal reflux disease) K21.9 Active 933432411 Problem Carpal tunnel syndrome of right wrist G56.01 Active [id number] ALLERGIES No Information ENCOUNTERS Encounter Location Date Diagnosis [facility] [id number] [address] Jul, Hypertension I10 ; Type 2 diabetes mellitus with other specified complication, without long-term current use of insulin E11.69 and Sciatic nerve pain, unspecified laterality M54.30 [facility] [address] [facility] [id number] [address] Jul, Type 2 diabetes mellitus with other specified complication, without long-term current use of insulin E11.69 ; BMI 45.0-49.9, adult Z68.42 ; Sciatic nerve pain, unspecified laterality M54.30 ; Hypertension I10 ; Lumbago with sciatica, left side M54.42 ; Lumbago with sciatica, right side M54.41 and Other chronic pain G89.29 [place] [address] [address] Jul, [address] [address] Jul, Degenerative lumbar spinal stenosis M48.06 and COPD ( chronic obstructive pulmonary disease) J44.[address] [address] Jun, Type 2 diabetes mellitus with diabetic neuropathy, without long-term current use of insulin E11.40 [place] [id number] [place] [address] Jun, Primary insomnia F51.01 and Degenerative lumbar spinal stenosis M48.[address] [address] Apr, Type 2 diabetes mellitus with diabetic neuropathy, without long-term current use of insulin E11.40 ; Primary insomnia F51.01 and Hypertension I10 [place] [id number] [place] [address] March, Primary insomnia F51.01 [place] [address] [address] March, Osteoarthritis of spine with radiculopathy, cervical region M47.22 [place] [id number] [place] [address]- 46[address] Feb, Type 2 diabetes mellitus with diabetic neuropathy, without long-term current use of insulin E11.40 [place] [address] [address] Feb, [place] [id number] [place] [address]- [address] Feb, [place] [address] [address] Feb, Actinic keratosis L57.0 and BMI 40.0-44.9, adult Z68.41 [place] [address] [address] Feb, Type 2 diabetes mellitus without complications E11.9 [place] [address] [address] Jan, Hypertension I10 ; BMI 40.0-44.9, adult Z68.41 ; Cervicalgia M54.2 and Carpal tunnel syndrome of right wrist G56.01 [place] [address] [address] Jan, [place] [address] [address] Jan, [place] [address] [address] Jan, [place] [address] [address] Dec, Hypertension I10 [place] [address] [address] Dec, [place] [address] [address] Nov, Degenerative lumbar spinal stenosis M48.06 and COPD ( chronic obstructive pulmonary disease) J44.9 [place] [address] [address] Nov, Onycholysis L60.1 [place] [address] [address] Nov, Type 2 diabetes mellitus with diabetic neuropathy, without long-term current use of insulin E11.40 ; COPD (chronic obstructive pulmonary disease) J44.9 ; GERD (gastroesophageal reflux disease) K21.9 ; Hypertriglyceridemia E78.1 ; Hypertension I10 ; Degenerative lumbar spinal stenosis M48.06 ; Lumbago with sciatica, right side M54.41 ; Sciatic nerve pain M54.30 and Primary insomnia F51.01 [place] [address] [address] Oct, Hypertension I10 ; Peripheral neuropathy G62.9 ; Type 2 diabetes mellitus without complications E11.9 and COPD (chronic obstructive pulmonary disease) J44.9 [place] [address] [address]- 239[address] Oct, Peripheral neuropathy G62.9 [place] [address] [address]- [address] Sep, Peripheral neuropathy G62.9 [place] [address] [address]- 239[address] Aug, Peripheral neuropathy G62.9 [place] [address] [address]- [address] Jul, [place] [address] 18[address]- [address] Jul, [place] [id number] [place] [address] Jul, Type 2 diabetes mellitus without complications E11.9 ; Splenic artery aneurysm I72.8 ; Pancreatic lesion K86.9 ; Primary insomnia F51.01 ; Peripheral neuropathy G62.9 and Carpal tunnel syndrome of right wrist G56.01 [place] [address] [address] Jun, Type 2 diabetes mellitus without complications E11.9 and Leg cramps R25.2 [place] [id number] [place] [address]- [address] Jun, [place] [id number] [address] May, Splenic artery aneurysm I72.8 ; Pancreatic lesion K86.9 ; Hypertension I10 and Urinary tract infection without hematuria, site unspecified N39.0 [facility] [address] [address] May, Leg cramps R25.2 [place] [id number] [place] [address]183- 4[address] May, [place] [id number] [place] [address] 62598- 4379 May, Type 2 diabetes mellitus without complications E11.9 and GERD (gastroesophageal reflux disease) K21.9 [place] [id number] [place] [address] Apr, [place] [id number] [place] [address] 27672- 0036 Apr, [facility] [id number] [place] [address] 12478- 0877 Apr, [place] [id number] [place] [address] 74594- 7466 Apr, [facility] [address] [place] [address] 15376- 6514 Apr, Type 2 diabetes mellitus without complications E11.9 ; GERD (gastroesophageal reflux disease) K21.9 ; Peripheral neuropathy G62.9 ; Hypertension I10 ; Sciatic nerve pain M54.30 ; Morbid obesity E66.01 ; COPD ( chronic obstructive pulmonary disease) J44.9 ; Pancreatic lesion K86.9 and Splenic artery aneurysm I72.8 [place] [id number] [place] [address]- [address] March, [place] [address] [address] March, H/O hypercholesterolemia Z86.39 ; Leg cramps R25.2 ; Hypertension I10 and GERD (gastroesophageal reflux disease) K21.9 [place] [id number] [place] [address]24- [address] Sep, Type 2 diabetes mellitus without complications E11.9 ; GERD (gastroesophageal reflux disease) K21.9 ; Peripheral neuropathy G62.9 ; Hypertension I10 ; Sciatic nerve pain M54.30 ; Morbid obesity E66.01 ; COPD ( chronic obstructive pulmonary disease) J44.9 ; Leg cramps R25.2 ; Other depression F32.8 ; H/O hypercholesterolemia Z86.39 and Degenerative lumbar spinal stenosis M48.06 [place] [id number] [place] [address]- [address] Aug, [place] [address] [address]- [address] Jun, [place] [address] [address]- [address] Jun, [place] [address] [address]- 1734 Jun, [place] [id number] [place] [address] 78308- 3599 May, Peripheral neuropathy G62.9 ; Sciatic nerve pain M54.30 ; Morbid obesity E66.01 ; Other depression F32.8 and Lumbago with sciatica, right side M54.41 [place] [id number] [place] [address] 40021- 3528 Apr, [place] [id number] [place] [address] 32417- 9156 Apr, Pain in thoracic spine M54.6 ; Other chronic pain G89.29 ; Lumbago with sciatica, left side M54.42 ; Lumbago with sciatica, right side M54.41 ; Onycholysis L60.1 and Intractable vomiting with nausea, vomiting of unspecified type R11.2 [place] [id number] [place] [address]10- 2[address] March, [place] [id number] [place] [address] 8[address]88- 1081 March, Type 2 diabetes mellitus without complications E11.9 ; Onycholysis L60.1 and Encounter for screening colonoscopy Z12.11 [facility] [id number] [place] [address] 736[address]- 75[address] Feb, [facility] [address] [address]- [address] 15 Feb, 2016 Peripheral neuropathy G62.9 and Leg cramps R25.2 [facility] [address] [address] Jan, Influenza A J10.1 and Body aches R52 [facility] [address] [address]- [address] 09 Dec, 2015 GERD (gastroesophageal reflux disease) K21.9 ; Peripheral neuropathy G62.9 ; Hypertension I10 ; Morbid obesity E66.01 ; Encounter for immunization Z23 ; Type 2 diabetes mellitus without complications E11.9 and COPD (chronic obstructive pulmonary disease) J44.9 [place] [address] 07[address]- [address] Dec, [facility] [id number] [place] [address] 95370- 5379 04 Dec, 2015 Morbid obesity E66.01 [facility] [id number] [place] [address] 16386- 2885 Nov, [facility] [id number] [place] [address] 61551- 4238 Nov, [place] [address] 49[address]- 69[address] Nov, [facility] [id number] [place] [address] 85519- 0304 Nov, [facility] [address] 8[address]- [address] Oct, [place] [id number] [place] [address] 89551- 4223 Oct, [place] [id number] [place] [address] 55012- 2772 Oct, [place] [id number] [place] [address] 00307- 0862 Oct, [place] [address] 64287- 9821 Sep, Type 2 diabetes mellitus without complications E11.9 ; GERD (gastroesophageal reflux disease) K21.9 ; Peripheral neuropathy G62.9 ; Hypertension I10 ; H/O hypercholesterolemia Z86.39 ; Morbid obesity E66.01 and Sciatic nerve pain M54.30 [place] [id number] [place] [address] 06578- 0078 11 Sep, 2015 General medical exam Z00.00 ; Abnormal chest x-ray R93.8 ; Type 2 diabetes mellitus without complications E11.9 and GERD (gastroesophageal reflux disease) K21.9 [place] [id number] [place] [address] 97879- 9361 10 Sep, 2015 General medical exam Z00.00 ; Type 2 diabetes mellitus without complications E11.9 ; GERD (gastroesophageal reflux disease) K21.9 ; Abnormal chest x-ray R93.8 ; Leg cramps R25.2 ; Dietary counseling Z71.3 ; Exercise counseling Z71.89 ; Peripheral neuropathy G62.9 ; Hypertension I10 ; H/ O hypercholesterolemia Z86.39 ; Sciatic nerve pain M54.30 and Morbid obesity E66.01 [place] [address] [place] [address] 67[address]- [address] March, [place] [id number] [place] [address] 46120- 6038 Sep, IMMUNIZATIONS No Known Immunizations SOCIAL HISTORY Never Assessed REASON FOR VISIT PALS IN-[facility] PLAN OF CARE VITAL SIGNS MEDICATIONS Unknown Medications RESULTS No Results PROCEDURES No Known [...]
--- OUTSIDE RECORDS SUMMARY | 2019-01-25 17:57 | XMS REPORT ---
Author Author NIKI José Organization [facility] Address [address] [place] [address] Care Team Providers Care Coffee Roaster Name Role Phone Arnav NIKI Unavailable PROBLEMS Type Condition ICD9-CM Code LIN66-VF Code Onset Dates Condition Status SNOMED Code Problem Primary insomnia F51.01 Active 4872026 Problem Lumbago with sciatica, right side M54.41 Active 85378059 Problem Hypertriglyceridemia E78.1 Active 334430332 Problem Other chronic pain G89.29 Active 92307771 Problem Lumbago with sciatica, left side M54.42 Active 540279181 Problem Osteoarthritis of spine with radiculopathy, cervical region M47.22 Active 157260962 Problem Type 2 diabetes mellitus with diabetic neuropathy, without long-term current use of insulin E11.40 Active 65126775 Problem Type 2 diabetes mellitus with other specified complication, without long-term current use of insulin E11.69 Active 28777481 Problem Sciatic nerve pain, unspecified laterality M54.30 Active 97233379 Problem Sciatic nerve pain M54.30 Active 92124110 Problem COPD (chronic obstructive pulmonary disease) J44.9 Active 60281888 Problem Pancreatic lesion K86.9 Active 7168587 Problem Hypertension I10 Active 93183053 Problem Splenic artery aneurysm I72.8 Active 81407770 Problem GERD (gastroesophageal reflux disease) K21.9 Active 775303281 Problem Carpal tunnel syndrome of right wrist G56.01 Active [id number] ALLERGIES No Information ENCOUNTERS Encounter Location Date Diagnosis [facility] [address] [id number] [address] Jul, Hypertension I10 ; Type 2 diabetes mellitus with other specified complication, without long-term current use of insulin E11.69 and Sciatic nerve pain, unspecified laterality M54.30 [facility] [address] [facility] [id number] [address] Jul, Type 2 diabetes mellitus with other specified complication, without long-term current use of insulin E11.69 ; BMI 45.0-49.9, adult Z68.42 ; Sciatic nerve pain, unspecified laterality M54.30 ; Hypertension I10 ; Lumbago with sciatica, left side M54.42 ; Lumbago with sciatica, right side M54.41 and Other chronic pain G89.29 [place] [address] [address] Jul, [address] [address] Jul, Degenerative lumbar spinal stenosis M48.06 and COPD ( chronic obstructive pulmonary disease) J44.[address] [address] Jun, Type 2 diabetes mellitus with diabetic neuropathy, without long-term current use of insulin E11.40 [place] [id number] [place] [address] Jun, Primary insomnia F51.01 and Degenerative lumbar spinal stenosis M48.[address] [address] Apr, Type 2 diabetes mellitus with diabetic neuropathy, without long-term current use of insulin E11.40 ; Primary insomnia F51.01 and Hypertension I10 [place] [id number] [place] [address] March, Primary insomnia F51.01 [place] [address] [address] March, Osteoarthritis of spine with radiculopathy, cervical region M47.22 [place] [id number] [place] [address]69[address] Feb, Type 2 diabetes mellitus with diabetic neuropathy, without long-term current use of insulin E11.40 [place] [address] [address] Feb, [place] [id number] [place] [address] Feb, [place] [address] [address] Feb, Actinic keratosis L57.0 and BMI 40.0-44.9, adult Z68.41 [place] [address] [address] Feb, Type 2 diabetes mellitus without complications E11.9 [place] [address] [address] Jan, Hypertension I10 ; BMI 40.0-44.9, adult Z68.41 ; Cervicalgia M54.2 and Carpal tunnel syndrome of right wrist G56.01 [place] [address] [address] Jan, [place] [address] [address] Jan, [place] [address] [address] Jan, [place] [address] [address] Dec, Hypertension I10 [place] [address] [address] Dec, [place] [address] [address] Nov, Degenerative lumbar spinal stenosis M48.06 and COPD ( chronic obstructive pulmonary disease) J44.9 [place] [address] [address] Nov, Onycholysis L60.1 [place] [address] [address] Nov, Type 2 diabetes mellitus with diabetic neuropathy, without long-term current use of insulin E11.40 ; COPD (chronic obstructive pulmonary disease) J44.9 ; GERD (gastroesophageal reflux disease) K21.9 ; Hypertriglyceridemia E78.1 ; Hypertension I10 ; Degenerative lumbar spinal stenosis M48.06 ; Lumbago with sciatica, right side M54.41 ; Sciatic nerve pain M54.30 and Primary insomnia F51.01 [place] [address] [address] Oct, Hypertension I10 ; Peripheral neuropathy G62.9 ; Type 2 diabetes mellitus without complications E11.9 and COPD (chronic obstructive pulmonary disease) J44.9 [place] [address] [address] Oct, Peripheral neuropathy G62.9 [place] [address] [address] Sep, Peripheral neuropathy G62.9 [place] [address] [address] Aug, Peripheral neuropathy G62.9 [place] [address] [address] Jul, [place] [address] [address] Jul, [place] [id number] [place] [address] Jul, Type 2 diabetes mellitus without complications E11.9 ; Splenic artery aneurysm I72.8 ; Pancreatic lesion K86.9 ; Primary insomnia F51.01 ; Peripheral neuropathy G62.9 and Carpal tunnel syndrome of right wrist G56.01 [place] [address] [address] Jun, Type 2 diabetes mellitus without complications E11.9 and Leg cramps R25.2 [place] [id number] [place] [address]- [address] Jun, [place] [address] [id number] [address] May, Splenic artery aneurysm I72.8 ; Pancreatic lesion K86.9 ; Hypertension I10 and Urinary tract infection without hematuria, site unspecified N39.0 [facility] [address], [place] [address] May, Leg cramps R25.2 [place] [id number] [place] [address]- [address] May, [place] [id number] [place] [address]- [address] May, Type 2 diabetes mellitus without complications E11.9 and GERD (gastroesophageal reflux disease) K21.9 [place] [id number] [place] [address]96- 1667 Apr, [place] [id number] [place] [address] 80757- 2[address] Apr, [facility] [id number] [place] [address]85 Apr, [place] [id number] [place] [address]- 250[address] Apr, [facility] [id number] [place] [address]- [address] Apr, Type 2 diabetes mellitus without complications E11.9 ; GERD (gastroesophageal reflux disease) K21.9 ; Peripheral neuropathy G62.9 ; Hypertension I10 ; Sciatic nerve pain M54.30 ; Morbid obesity E66.01 ; COPD ( chronic obstructive pulmonary disease) J44.9 ; Pancreatic lesion K86.9 and Splenic artery aneurysm I72.8 [place] [id number] [place] [address]- [address] March, [place] [address], [place] [address] March, H/O hypercholesterolemia Z86.39 ; Leg cramps R25.2 ; Hypertension I10 and GERD (gastroesophageal reflux disease) K21.9 [place] [id number] [place] [address]- [address]84 Sep, Type 2 diabetes mellitus without complications E11.9 ; GERD (gastroesophageal reflux disease) K21.9 ; Peripheral neuropathy G62.9 ; Hypertension I10 ; Sciatic nerve pain M54.30 ; Morbid obesity E66.01 ; COPD ( chronic obstructive pulmonary disease) J44.9 ; Leg cramps R25.2 ; Other depression F32.8 ; H/O hypercholesterolemia Z86.39 and Degenerative lumbar spinal stenosis M48.06 [place] [id number] [place] [address]- [address] Aug, [place] [address] [address] Jun, [place] [address] [address] Jun, [place] [address] 440[address]- 6[address] Jun, [place] [id number] [place] [address] 93[address]- [address] May, Peripheral neuropathy G62.9 ; Sciatic nerve pain M54.30 ; Morbid obesity E66.01 ; Other depression F32.8 and Lumbago with sciatica, right side M54.41 [place] [id number] [place] [address] 78653- 4[address] Apr, [place] [id number] [place] [address] 57[address]- 9732 Apr, Pain in thoracic spine M54.6 ; Other chronic pain G89.29 ; Lumbago with sciatica, left side M54.42 ; Lumbago with sciatica, right side M54.41 ; Onycholysis L60.1 and Intractable vomiting with nausea, vomiting of unspecified type R11.2 [place] [id number] [place] [address]- [address] March, [place] [id number] [place] [address] 89093- 2243 March, Type 2 diabetes mellitus without complications E11.9 ; Onycholysis L60.1 and Encounter for screening colonoscopy Z12.11 [facility] [id number] [place] [address] Feb, [facility] [address] [address] 15 Feb, 2016 Peripheral neuropathy G62.9 and Leg cramps R25.2 [facility] [address] [address] Jan, Influenza A J10.1 and Body aches R52 [facility] [address] [address]- [address] 09 Dec, 2015 GERD (gastroesophageal reflux disease) K21.9 ; Peripheral neuropathy G62.9 ; Hypertension I10 ; Morbid obesity E66.01 ; Encounter for immunization Z23 ; Type 2 diabetes mellitus without complications E11.9 and COPD (chronic obstructive pulmonary disease) J44.9 [place] [address] [address]- [address] Dec, [facility] [id number] [place] [address] 85993- 8822 04 Dec, 2015 Morbid obesity E66.01 [facility] [id number] [place] [address] 97563- 9026 Nov, [facility] [id number] [place] [address] 66363- 5743 Nov, [place] [address] [address]- [address] Nov, [facility] [id number] [place] [address] 72094- 2844 Nov, [facility] [address] [address]- 6006 Oct, [place] [id number] [place] [address] 52136- 1196 Oct, [place] [id number] [place] [address] 27442- 1849 Oct, [place] [id number] [place] [address] 96804- 7545 Oct, [place] [address] [address]- 4[address] Sep, Type 2 diabetes mellitus without complications E11.9 ; GERD (gastroesophageal reflux disease) K21.9 ; Peripheral neuropathy G62.9 ; Hypertension I10 ; H/O hypercholesterolemia Z86.39 ; Morbid obesity E66.01 and Sciatic nerve pain M54.30 [place] [id number] [place] [address] 20178- 9267 11 Sep, 2015 General medical exam Z00.00 ; Abnormal chest x-ray R93.8 ; Type 2 diabetes mellitus without complications E11.9 and GERD (gastroesophageal reflux disease) K21.9 [place] [id number] [place] [address] 94413- 9856 10 Sep, 2015 General medical exam Z00.00 ; Type 2 diabetes mellitus without complications E11.9 ; GERD (gastroesophageal reflux disease) K21.9 ; Abnormal chest x-ray R93.8 ; Leg cramps R25.2 ; Dietary counseling Z71.3 ; Exercise counseling Z71.89 ; Peripheral neuropathy G62.9 ; Hypertension I10 ; H/ O hypercholesterolemia Z86.39 ; Sciatic nerve pain M54.30 and Morbid obesity E66.01 [place] [id number] [place] [address] 34726- 1313 March, [place] [id number] [place] [address] 50017- 0590 Sep, IMMUNIZATIONS No Known Immunizations SOCIAL HISTORY Never Assessed REASON FOR VISIT PLAN OF CARE VITAL SIGNS MEDICATIONS Medication Instructions Dosage Frequency Start Date End Date Duration Status Diclofenac Sodium 75 MG Orally Twice a day 1 tablet 12h Active Lisinopril 10 mg Orally Once a day 1 tablet 24h Active Metformin HCl 850 MG Orally Twice a day 1 tablet with a meal 12h Active RESULTS No Results PROCEDURES No Known [...]
--- OUTSIDE RECORDS SUMMARY | 2019-01-25 17:58 | XMS REPORT ---
Author Author AKINSNIKI Tripathi Organization [facility] Address [address] [place] [address] Care Team Providers Care Tub Puller Name Role Phone NIKI AKINS Unavailable PROBLEMS Type Condition ICD9-CM Code JCF27-SQ Code Onset Dates Condition Status SNOMED Code Problem Splenic artery aneurysm I72.8 Active 27980444 Problem Primary insomnia F51.01 Active 7857862 Problem Carpal tunnel syndrome of right wrist G56.01 Active [id number] Problem Type 2 diabetes mellitus with other specified complication, without long-term current use of insulin E11.69 Active 98280621 Problem Sciatic nerve pain, unspecified laterality M54.30 Active 65649845 Problem Lumbago with sciatica, right side M54.41 Active 32765943 Problem Hypertriglyceridemia E78.1 Active 836750823 Problem Osteoarthritis of spine with radiculopathy, cervical region M47.22 Active 227884991 Problem Type 2 diabetes mellitus with diabetic neuropathy, without long-term current use of insulin E11.40 Active 85650058 Problem Hypertension I10 Active 96386447 Problem GERD (gastroesophageal reflux disease) K21.9 Active 348382523 Problem COPD (chronic obstructive pulmonary disease) J44.9 Active 99291280 Problem Sciatic nerve pain M54.30 Active 90754601 Problem Pancreatic lesion K86.9 Active [id number] ALLERGIES No Information ENCOUNTERS Encounter Location Date Diagnosis [facility] [id number] [address] Jul, Type 2 diabetes mellitus with other specified complication, without long-term current use of insulin E11.69 ; BMI 45.0-49.9, adult Z68.42 ; Sciatic nerve pain, unspecified laterality M54.30 and Hypertension I10 [facility] [address] [facility] [id number] [address] Jul, [facility] [id number] [place] [address]39- [address] Jul, Degenerative lumbar spinal stenosis M48.06 and COPD ( chronic obstructive pulmonary disease) J44.9 [address] [address] Jun, Type 2 diabetes mellitus with diabetic neuropathy, without long-term current use of insulin E11.40 [place] [id number] [place] [address] 83180- 7122 Jun, Primary insomnia F51.01 and Degenerative lumbar spinal stenosis M48.06 [place] [id number] [place] [address] 74552- 4394 Apr, Type 2 diabetes mellitus with diabetic neuropathy, without long-term current use of insulin E11.40 ; Primary insomnia F51.01 and Hypertension I10 [place] [id number] [place] [address] 80148- 8346 March, Primary insomnia F51.01 [place] [address] [address] March, Osteoarthritis of spine with radiculopathy, cervical region M47.22 [place] [address] [address]- [address] Feb, Type 2 diabetes mellitus with diabetic neuropathy, without long-term current use of insulin E11.40 [place] [id number] [place] [address] 03220- 8961 Feb, [place] [id number] [place] [address] 36917- 5937 Feb, [place] [address] [address] Feb, Actinic keratosis L57.0 and BMI 40.0-44.9, adult Z68.41 [place] [id number] [place] [address] 83596- 1990 Feb, Type 2 diabetes mellitus without complications E11.9 [place] [address] [address] Jan, Hypertension I10 ; BMI 40.0-44.9, adult Z68.41 ; Cervicalgia M54.2 and Carpal tunnel syndrome of right wrist G56.01 [place] [address] [address] Jan, [place] [address] [address] Jan, [place] [id number] [place] [address] 56803- 7629 Jan, [place] [id number] [place] [address] 81490- 1985 Dec, Hypertension I10 [place] [id number] [place] [address] 57029- 8615 Dec, [place] [id number] [place] [address] 19151- 1733 Nov, Degenerative lumbar spinal stenosis M48.06 and COPD ( chronic obstructive pulmonary disease) J44.9 [place] [id number] [place] [address] 01811- 6741 Nov, Onycholysis L60.1 [place] [id number] [place] [address] 99549- 3347 Nov, Type 2 diabetes mellitus with diabetic neuropathy, without long-term current use of insulin E11.40 ; COPD (chronic obstructive pulmonary disease) J44.9 ; GERD (gastroesophageal reflux disease) K21.9 ; Hypertriglyceridemia E78.1 ; Hypertension I10 ; Degenerative lumbar spinal stenosis M48.06 ; Lumbago with sciatica, right side M54.41 ; Sciatic nerve pain M54.30 and Primary insomnia F51.01 [place] [address] [place] [address] 39897- 7422 Oct, Hypertension I10 ; Peripheral neuropathy G62.9 ; Type 2 diabetes mellitus without complications E11.9 and COPD (chronic obstructive pulmonary disease) J44.9 [facility] [id number] [place] [address] 82200- 8331 Oct, Peripheral neuropathy G62.9 [facility] [id number] [place] [address] 45090- 6861 Sep, Peripheral neuropathy G62.9 [facility] [id number] [place] [address] 12988- 7063 Aug, Peripheral neuropathy G62.9 [facility] [id number] [place] [address] 09481- 6564 Jul, [facility] [id number] [place] [address] 53689- 0850 Jul, [facility] [id number] [place] [address] 82274- 0914 Jul, Type 2 diabetes mellitus without complications E11.9 ; Splenic artery aneurysm I72.8 ; Pancreatic lesion K86.9 ; Primary insomnia F51.01 ; Peripheral neuropathy G62.9 and Carpal tunnel syndrome of right wrist G56.01 [facility] [id number] [place] [address] 39313- 7448 Jun, Type 2 diabetes mellitus without complications E11.9 and Leg cramps R25.2 [facility] [id number] [place] [address] 39867- 4644 Jun, [facility] [id number] [place] [address] 72464- 5095 May, Splenic artery aneurysm I72.8 ; Pancreatic lesion K86.9 ; Hypertension I10 and Urinary tract infection without hematuria, site unspecified N39.0 [facility] [id number] [place] [address] 97681- 5638 May, Leg cramps R25.2 [facility] [id number] [place] [address] 58655- 0945 May, [facility] [address] [place] [address] May, Type 2 diabetes mellitus without complications E11.9 and GERD (gastroesophageal reflux disease) K21.9 [place] [id number] [place] [address] 15827- 0122 Apr, [place] [id number] [place] [address] 40804- 5088 Apr, [place] [id number] [place] [address] 02972- 4772 Apr, [place] [id number] [place] [address] 48451- 8345 Apr, [place] [id number] [place] [address] 95739- 2477 Apr, Type 2 diabetes mellitus without complications E11.9 ; GERD (gastroesophageal reflux disease) K21.9 ; Peripheral neuropathy G62.9 ; Hypertension I10 ; Sciatic nerve pain M54.30 ; Morbid obesity E66.01 ; COPD ( chronic obstructive pulmonary disease) J44.9 ; Pancreatic lesion K86.9 and Splenic artery aneurysm I72.8 [place] [id number] [place] [address] 21086- 1061 March, [place] [id number] [place] [address] 92128- 7926 March, H/O hypercholesterolemia Z86.39 ; Leg cramps R25.2 ; Hypertension I10 and GERD (gastroesophageal reflux disease) K21.9 [place] [address] [place] [address] 38586- 4233 Sep, Type 2 diabetes mellitus without complications E11.9 ; GERD (gastroesophageal reflux disease) K21.9 ; Peripheral neuropathy G62.9 ; Hypertension I10 ; Sciatic nerve pain M54.30 ; Morbid obesity E66.01 ; COPD ( chronic obstructive pulmonary disease) J44.9 ; Leg cramps R25.2 ; Other depression F32.8 ; H/O hypercholesterolemia Z86.39 and Degenerative lumbar spinal stenosis M48.06 [place] [id number] [place] [address] 45963- 2692 Aug, [place] [id number] [place] [address] 45904- 0582 Jun, [facility] [id number] [place] [address] 91235- 6081 Jun, [place] [address] 67286- 0[address] Jun, [place] [address] 73666- 8169 May, Peripheral neuropathy G62.9 ; Sciatic nerve pain M54.30 ; Morbid obesity E66.01 ; Other depression F32.8 and Lumbago with sciatica, right side M54.41 [place] [id number] [place] [address] 68400- 0555 Apr, [place] [address] 44878- 5265 Apr, Pain in thoracic spine M54.6 ; Other chronic pain G89.29 ; Lumbago with sciatica, left side M54.42 ; Lumbago with sciatica, right side M54.41 ; Onycholysis L60.1 and Intractable vomiting with nausea, vomiting of unspecified type R11.2 [place] [id number] [place] [address] 69235- 3882 March, [place] [id number] [place] [address] 39595- 2292 March, Type 2 diabetes mellitus without complications E11.9 ; Onycholysis L60.1 and Encounter for screening colonoscopy Z12.11 [place] [id number] [place] [address] 20942- 9999 Feb, [place] [id number] [place] [address] 99160- 7191 Feb, Peripheral neuropathy G62.9 and Leg cramps R25.2 [facility] [id number] [place] [address] 84889 -0895 Jan, Influenza A J10.1 and Body aches R52 [facility] [id number] [place] [address] 88390- 8415 09 Dec, 2015 GERD (gastroesophageal reflux disease) K21.9 ; Peripheral neuropathy G62.9 ; Hypertension I10 ; Morbid obesity E66.01 ; Encounter for immunization Z23 ; Type 2 diabetes mellitus without complications E11.9 and COPD (chronic obstructive pulmonary disease) J44.9 [facility] [address] 41341- 7215 Dec, [facility] [address] 01651- 3949 Dec, Morbid obesity E66.01 [facility] [address] 92305- 0447 Nov, [facility] [id number] [place] [address] 50877- 7860 Nov, [facility] [id number] [place] [address] 80985- 0115 Nov, [facility] [id number] [place] [address] 07850- 3348 Nov, [facility] [id number] [place] [address] 65757- 4900 Oct, [facility] [id number] [place] [address] 91826- 1431 Oct, [facility] [id number] [place] [address] 30813- 5174 Oct, [facility] [id number] [place] [address] 71687- 7862 Oct, [facility] [id number] [place] [address] 73665- 1910 Sep, Type 2 diabetes mellitus without complications E11.9 ; GERD (gastroesophageal reflux disease) K21.9 ; Peripheral neuropathy G62.9 ; Hypertension I10 ; H/O hypercholesterolemia Z86.39 ; Morbid obesity E66.01 and Sciatic nerve pain M54.30 [address] [place] [address] 11 Sep, 2015 General medical exam Z00.00 ; Abnormal chest x-ray R93.8 ; Type 2 diabetes mellitus without complications E11.9 and GERD (gastroesophageal reflux disease) K21.9 [place] [place] [id number] [place] [address] 30239- 9619 10 Sep, 2015 General medical exam Z00.00 ; Type 2 diabetes mellitus without complications E11.9 ; GERD (gastroesophageal reflux disease) K21.9 ; Abnormal chest x-ray R93.8 ; Leg cramps R25.2 ; Dietary counseling Z71.3 ; Exercise counseling Z71.89 ; Peripheral neuropathy G62.9 ; Hypertension I10 ; H/ O hypercholesterolemia Z86.39 ; Sciatic nerve pain M54.30 and Morbid obesity E66.01 [address] [address] [place] [address] 02935- 0263 March, [id number] [place] [address] Sep, IMMUNIZATIONS No Known Immunizations SOCIAL HISTORY Never Assessed REASON FOR VISIT Repository Medication PLAN OF CARE VITAL SIGNS MEDICATIONS Medication Instructions Dosage Frequency Start Date End Date Duration Status Metformin HCl 850 MG Orally Twice a day 1 tablet with meals 12h 30 days Active Carafate 1 GM Orally Twice a day 1 tablet on an empty stomach 12h 90 days Active Protonix 40 mg Orally Once a day 1 tablet 24h May, 90 days Active RESULTS No Results PROCEDURES No [...]
--- OUTSIDE RECORDS SUMMARY | 2019-01-25 17:58 | XMS REPORT ---
Author Author NIKI AKINS Organization [facility] Address [address] [place] [address] Care Team Providers Care Customer Advisor Name Role Phone NIKI AKINS Unavailable PROBLEMS Type Condition ICD9-CM Code PPG35-MT Code Onset Dates Condition Status SNOMED Code Problem Pancreatic lesion K86.9 Active 4019865 Problem Primary insomnia F51.01 Active 8245134 Problem Splenic artery aneurysm I72.8 Active 67889677 Problem Type 2 diabetes mellitus without complications E11.9 Active 160577250 Problem Osteoarthritis of spine with radiculopathy, cervical region M47.22 Active 233563907 Problem Hypertriglyceridemia E78.1 Active 089673260 Problem Carpal tunnel syndrome of right wrist G56.01 Active [id number] Problem Type 2 diabetes mellitus with diabetic neuropathy, without long-term current use of insulin E11.40 Active 23229587 Problem Lumbago with sciatica, right side M54.41 Active 33688424 Problem GERD (gastroesophageal reflux disease) K21.9 Active 083305058 Problem Sciatic nerve pain M54.30 Active 38473806 Problem COPD (chronic obstructive pulmonary disease) J44.9 Active 92520072 Problem Hypertension I10 Active 15669464 Problem Leg cramps R25.2 Active [id number] ALLERGIES No Information ENCOUNTERS Encounter Location Date Diagnosis [facility] [id number], [place] [address] Jul, [facility] [id number] [place] [address]302- 5915 07 Jul, 2018 Degenerative lumbar spinal stenosis M48.06 and COPD ( chronic obstructive pulmonary disease) J44.9 [facility] [id number], [place] [address] Jun, Type 2 diabetes mellitus with diabetic neuropathy, without long-term current use of insulin E11.40 [facility] [id number] [place] [address] 85278- 3875 Jun, Primary insomnia F51.01 and Degenerative lumbar spinal stenosis M48.06 [place] [address] [address] Apr, Type 2 diabetes mellitus with diabetic neuropathy, without long-term current use of insulin E11.40 ; Primary insomnia F51.01 and Hypertension I10 [place] [address] [address]- [address] March, Primary insomnia F51.01 [place] [address] [address]- 3803 March, Osteoarthritis of spine with radiculopathy, cervical region M47.22 [place] [address] [address]- 8856 Feb, Type 2 diabetes mellitus with diabetic neuropathy, without long-term current use of insulin E11.40 [facility] [id number] [place] [address] 29644- 0841 Feb, [place] [address] [address]- [address] Feb, [place] [address] [address]- [address]89 Feb, Actinic keratosis L57.0 and BMI 40.0-44.9, adult Z68.41 [facility] [id number] [place] [address] 64360- 2300 Feb, Type 2 diabetes mellitus without complications E11.9 [place] [address] [address]- 2447 Jan, Hypertension I10 ; BMI 40.0-44.9, adult Z68.41 ; Cervicalgia M54.2 and Carpal tunnel syndrome of right wrist G56.01 [place] [address] [address]- [address]89 Jan, [facility] [address] [address] Jan, [facility] [id number] [place] [address] 06007- 5323 Jan, [facility] [id number] [place] [address] 56280- 6110 Dec, Hypertension I10 [place] [address] 15818- 6265 Dec, [facility] [facility] [id number] [place] [address] 57353- 2211 Nov, Degenerative lumbar spinal stenosis M48.06 and COPD ( chronic obstructive pulmonary disease) J44.9 [facility] [id number] [place] [address] 36305- 5385 Nov, Onycholysis L60.1 [facility] [facility] [id number] [place] [address] 15606- 6123 Nov, Type 2 diabetes mellitus with diabetic neuropathy, without long-term current use of insulin E11.40 ; COPD (chronic obstructive pulmonary disease) J44.9 ; GERD (gastroesophageal reflux disease) K21.9 ; Hypertriglyceridemia E78.1 ; Hypertension I10 ; Degenerative lumbar spinal stenosis M48.06 ; Lumbago with sciatica, right side M54.41 ; Sciatic nerve pain M54.30 and Primary insomnia F51.01 [place] [address], [place] [address] Oct, Hypertension I10 ; Peripheral neuropathy G62.9 ; Type 2 diabetes mellitus without complications E11.9 and COPD (chronic obstructive pulmonary disease) J44.9 [facility] [facility] [id number] [place] [address] 35767- 7003 Oct, Peripheral neuropathy G62.9 [place] [address] [place] [address] 35066- 6236 Sep, Peripheral neuropathy G62.9 [facility] [id number] [address] Aug, Peripheral neuropathy G62.9 [facility] [id number] [place] [address] 79686- 3530 29 Jul, 2017 [facility] [id number] [place] [address] 88006- 4978 Jul, [facility] [id number] [place] [address] 78380- 4248 Jul, Type 2 diabetes mellitus without complications E11.9 ; Splenic artery aneurysm I72.8 ; Pancreatic lesion K86.9 ; Primary insomnia F51.01 ; Peripheral neuropathy G62.9 and Carpal tunnel syndrome of right wrist G56.01 [facility] [id number] [place] [address] 90664- 5454 Jun, Type 2 diabetes mellitus without complications E11.9 and Leg cramps R25.2 [facility] [id number] [place] [address] 04686- 1687 Jun, [facility] [id number] [place] [address] 48208- 1742 May, Splenic artery aneurysm I72.8 ; Pancreatic lesion K86.9 ; Hypertension I10 and Urinary tract infection without hematuria, site unspecified N39.0 [place] [address] [place] [address] 44894- 3984 May, Leg cramps R25.2 [facility] [facility] [id number] [place] [address] 46359- 1895 May, [facility] [id number] [place] [address] 48854- 6220 May, Type 2 diabetes mellitus without complications E11.9 and GERD (gastroesophageal reflux disease) K21.9 [facility] [address] [place] [address] 44664- 8923 Apr, [facility] [id number] [place] [address] 57690- 6341 Apr, [facility] [address], [place] [address] Apr, [facility] [id number] [place] [address] 46433- 2741 Apr, [facility] [id number] [place] [address] 38777- 3357 Apr, Type 2 diabetes mellitus without complications E11.9 ; GERD (gastroesophageal reflux disease) K21.9 ; Peripheral neuropathy G62.9 ; Hypertension I10 ; Sciatic nerve pain M54.30 ; Morbid obesity E66.01 ; COPD ( chronic obstructive pulmonary disease) J44.9 ; Pancreatic lesion K86.9 and Splenic artery aneurysm I72.8 [facility] [facility] [id number] [place] [address] 03698- 4228 March, [facility] [facility] [id number] [place] [address] 84425- 6641 March, H/O hypercholesterolemia Z86.39 ; Leg cramps R25.2 ; Hypertension I10 and GERD (gastroesophageal reflux disease) K21.9 [facility] [facility] [id number] [place] [address] 30095- 1089 Sep, Type 2 diabetes mellitus without complications E11.9 ; GERD (gastroesophageal reflux disease) K21.9 ; Peripheral neuropathy G62.9 ; Hypertension I10 ; Sciatic nerve pain M54.30 ; Morbid obesity E66.01 ; COPD ( chronic obstructive pulmonary disease) J44.9 ; Leg cramps R25.2 ; Other depression F32.8 ; H/O hypercholesterolemia Z86.39 and Degenerative lumbar spinal stenosis M48.06 [facility] [id number] [place] [address] 80737- 1686 Aug, [facility] [facility] [id number] [place] [address] 92988- 0630 Jun, [facility] [facility] [id number] [place] [address] 92061- 1010 Jun, [place] [address] 55766- 9308 Jun, [place] [address] 84008- 4548 May, Peripheral neuropathy G62.9 ; Sciatic nerve pain M54.30 ; Morbid obesity E66.01 ; Other depression F32.8 and Lumbago with sciatica, right side M54.41 [place] [address] 71900- 9275 Apr, [place] [address] 99633- 9387 Apr, Pain in thoracic spine M54.6 ; Other chronic pain G89.29 ; Lumbago with sciatica, left side M54.42 ; Lumbago with sciatica, right side M54.41 ; Onycholysis L60.1 and Intractable vomiting with nausea, vomiting of unspecified type R11.2 [place] [address] 14616- 6571 March, [place] [address] 70635- 5232 March, Type 2 diabetes mellitus without complications E11.9 ; Onycholysis L60.1 and Encounter for screening colonoscopy Z12.11 [place] [address] 62570- 5642 Feb, [place] [address] 56636- 5033 Feb, Peripheral neuropathy G62.9 and Leg cramps R25.[address] [facility] [address] [address] -[address]43 Jan, Influenza A J10.1 and Body aches R52 [place] [id number] [place] [address] 10123- 6494 09 Dec, 2015 GERD (gastroesophageal reflux disease) K21.9 ; Peripheral neuropathy G62.9 ; Hypertension I10 ; Morbid obesity E66.01 ; Encounter for immunization Z23 ; Type 2 diabetes mellitus without complications E11.9 and COPD (chronic obstructive pulmonary disease) J44.9 [facility] [id number] [place] [address] 03776- 3232 08 Dec, 2015 [facility] [id number] [place] [address] 18818- 1576 Dec, Morbid obesity E66.01 [facility] [id number] [place] [address] 99994- 2026 Nov, [facility] [id number] [place] [address] 59646- 1182 Nov, [facility] [id number] [place] [address] 17972- 4456 Nov, [facility] [id number] [place] [address] 60445- 8045 Nov, [facility] [id number] [place] [address] 93755- 0346 Oct, [facility] [id number] [place] [address] 48103- 7698 Oct, [facility] [id number] [place] [address] 65785- 9058 Oct, [facility] [id number] [place] [address] 94550- 0250 Oct, [facility] [id number] [place] [address] 86862- 8459 Sep, Type 2 diabetes mellitus without complications E11.9 ; GERD (gastroesophageal reflux disease) K21.9 ; Peripheral neuropathy G62.9 ; Hypertension I10 ; H/O hypercholesterolemia Z86.39 ; Morbid obesity E66.01 and Sciatic nerve pain M54.30 [facility] [address] [place] [address] 15606- 5102 Sep, General medical exam Z00.00 ; Abnormal chest x-ray R93.8 ; Type 2 diabetes mellitus without complications E11.9 and GERD (gastroesophageal reflux disease) K21.9 [place] [address], [place] [address]- [address] 10 Sep, 2015 General medical exam Z00.00 ; Type 2 diabetes mellitus without complications E11.9 ; GERD (gastroesophageal reflux disease) K21.9 ; Abnormal chest x-ray R93.8 ; Leg cramps R25.2 ; Dietary counseling Z71.3 ; Exercise counseling Z71.89 ; Peripheral neuropathy G62.9 ; Hypertension I10 ; H/ O hypercholesterolemia Z86.39 ; Sciatic nerve pain M54.30 and Morbid obesity E66.01 [place] [address], [place] [address]- [address] March, [place] [address], [place] [address]- 7399 Sep, IMMUNIZATIONS No Known Immunizations SOCIAL HISTORY Never Assessed REASON FOR VISIT repository PLAN OF CARE VITAL SIGNS MEDICATIONS Medication Instructions Dosage Frequency Start Date End Date Duration Status Savella 100 mg Orally 2 times a day 1 tablet 12h 15 Feb, 2016 Active Trazodone HCl 50 mg Orally Once a day take 3 tablets at bedtime 24h 90 days Active RESULTS No Results PROCEDURES No Known procedures INSTRUCTIONS MEDICATIONS ADMINISTERED No Known Medications MEDICAL (GENERAL) HISTORY Type Description Date Medical History Hypertension Medical History Diabetes Medical History Sciatic nerve pain Medical History High cholesterol Medical History obesity Medical History 05/2017- colonoscopy-serrated adenoma/ hyperplastic polyp- distal rectum Surgical History hernia repair 2008 Surgical History tonsillectomy Surgical History cholecystectomy 2008 Hospitalization History Surgery(s) only Hospitalization History bladder infection May 2017
--- OUTSIDE RECORDS SUMMARY | 2019-01-25 17:58 | XMS REPORT ---
Author Author NIKI AKINS Organization [facility] Address [address] [place] [address] Care Team Providers Care Chief Data Officer Name Role Phone NIKI AKINS Unavailable PROBLEMS Type Condition ICD9-CM Code SSM53-GN Code Onset Dates Condition Status SNOMED Code Problem Primary insomnia F51.01 Active 3518604 Problem Lumbago with sciatica, right side M54.41 Active 04636129 Problem Hypertriglyceridemia E78.1 Active 677952165 Problem Other chronic pain G89.29 Active 41341562 Problem Lumbago with sciatica, left side M54.42 Active 248530810 Problem Osteoarthritis of spine with radiculopathy, cervical region M47.22 Active 352161600 Problem Type 2 diabetes mellitus with diabetic neuropathy, without long-term current use of insulin E11.40 Active 53669164 Problem Type 2 diabetes mellitus with other specified complication, without long-term current use of insulin E11.69 Active 31055346 Problem Sciatic nerve pain, unspecified laterality M54.30 Active 64626933 Problem Sciatic nerve pain M54.30 Active 47733892 Problem COPD (chronic obstructive pulmonary disease) J44.9 Active 89671393 Problem Pancreatic lesion K86.9 Active 9785208 Problem Hypertension I10 Active 86840429 Problem Splenic artery aneurysm I72.8 Active 80354341 Problem GERD (gastroesophageal reflux disease) K21.9 Active 724924052 Problem Carpal tunnel syndrome of right wrist G56.01 Active [id number] ALLERGIES No Information ENCOUNTERS Encounter Location Date Diagnosis [facility] [address] [facility] [id number] [address] Jul, [facility] [address] [facility] [id number] [address] Jul, Type 2 diabetes mellitus with other specified complication, without long-term current use of insulin E11.69 ; BMI 45.0-49.9, adult Z68.42 ; Sciatic nerve pain, unspecified laterality M54.30 ; Hypertension I10 ; Lumbago with sciatica, left side M54.42 ; Lumbago with sciatica, right side M54.41 and Other chronic pain G89.29 [place] [address] [place] [id number] [place] [address] 64961- 9224 24 Jul, 2018 [place] [address] [address] 07 Jul, 2018 Degenerative lumbar spinal stenosis M48.06 and COPD ( chronic obstructive pulmonary disease) J44.9 [facility] [address] [place] [id number] [place] [address] 06332- 8222 Jun, Type 2 diabetes mellitus with diabetic neuropathy, without long-term current use of insulin E11.40 [facility] [address] [place] [id number] [place] [address] 86216- 1399 Jun, Primary insomnia F51.01 and Degenerative lumbar spinal stenosis M48.06 [place] [address] [place] [id number] [place] [address] 41231- 2925 Apr, Type 2 diabetes mellitus with diabetic neuropathy, without long-term current use of insulin E11.40 ; Primary insomnia F51.01 and Hypertension I10 [place] [address] [place] [id number] [place] [address] 03372- 3294 March, Primary insomnia F51.01 [place] [address] [place] [id number] [place] [address] 07017- 9556 March, Osteoarthritis of spine with radiculopathy, cervical region M47.22 [place] [address] [place] [id number] [place] [address] 26375- 4646 Feb, Type 2 diabetes mellitus with diabetic neuropathy, without long-term current use of insulin E11.40 [facility] [address] [place] [id number] [place] [address] 15514- 1115 Feb, [place] [address] 86788- 6272 Feb, [place] [address] [place] [id number] [place] [address] 53350- 3970 Feb, Actinic keratosis L57.0 and BMI 40.0-44.9, adult Z68.41 [place] [address] [place] [id number] [place] [address] 53619- 0945 Feb, Type 2 diabetes mellitus without complications E11.9 [place] [address] 78261- 4299 Jan, Hypertension I10 ; BMI 40.0-44.9, adult Z68.41 ; Cervicalgia M54.2 and Carpal tunnel syndrome of right wrist G56.01 [place] [address] 42151- 8034 Jan, [place] [address] 33007- 8911 Jan, [place] [address] 07614- 1457 Jan, [place] [address] 20170- 4850 Dec, Hypertension I10 [place] [address] 26848- 0218 Dec, [place] [address] [place] [id number] [place] [address] 53358- 3141 Nov, Degenerative lumbar spinal stenosis M48.06 and COPD ( chronic obstructive pulmonary disease) J44.9 [place] [address] [place] [id number] [place] [address] 43801- 8365 Nov, Onycholysis L60.1 [place] [address] 94643- 1187 Nov, Type 2 diabetes mellitus with diabetic neuropathy, without long-term current use of insulin E11.40 ; COPD (chronic obstructive pulmonary disease) J44.9 ; GERD (gastroesophageal reflux disease) K21.9 ; Hypertriglyceridemia E78.1 ; Hypertension I10 ; Degenerative lumbar spinal stenosis M48.06 ; Lumbago with sciatica, right side M54.41 ; Sciatic nerve pain M54.30 and Primary insomnia F51.01 [place] [address] [place] [id number] [place] [address] 87826- 2945 Oct, Hypertension I10 ; Peripheral neuropathy G62.9 ; Type 2 diabetes mellitus without complications E11.9 and COPD (chronic obstructive pulmonary disease) J44.9 [facility] [address] [place] [id number] [place] [address] 51184- 6774 Oct, Peripheral neuropathy G62.9 [place] [address] 67012- 7182 Sep, Peripheral neuropathy G62.9 [facility] [address] [place] [id number] [place] [address] 71241- 9121 Aug, Peripheral neuropathy G62.9 [facility] [place] [address] [place] [id number] [place] [address] 60576- 2629 Jul, [facility] [address] [id number] [place] [address] 27752- 6612 Jul, [place] [address] [id number] [place] [address] 37476- 2579 Jul, Type 2 diabetes mellitus without complications E11.9 ; Splenic artery aneurysm I72.8 ; Pancreatic lesion K86.9 ; Primary insomnia F51.01 ; Peripheral neuropathy G62.9 and Carpal tunnel syndrome of right wrist G56.01 [place] [address] [id number] [place] [address] 92512- 6106 Jun, Type 2 diabetes mellitus without complications E11.9 and Leg cramps R25.2 [facility] [address] [id number] [place] [address] 75985- 6328 Jun, [place] [address] [id number] [place] [address] 86186- 9658 May, Splenic artery aneurysm I72.8 ; Pancreatic lesion K86.9 ; Hypertension I10 and Urinary tract infection without hematuria, site unspecified N39.0 [facility] [address] [address] May, Leg cramps R25.2 [facility] [id number] [place] [address] 28982- 3509 May, [facility] [address] [address] [id number] [place] [address] 53124- 1240 May, Type 2 diabetes mellitus without complications E11.9 and GERD (gastroesophageal reflux disease) K21.9 [facility] [id number] [address] Apr, [facility] [address] [id number] [place] [address] 02383- 8169 Apr, [facility] [address] [id number] [place] [address] 16916- 8544 Apr, [facility] [address] [id number] [place] [address] 78947- 5266 Apr, [facility] [id number] [place] [address] 34086- 2814 Apr, Type 2 diabetes mellitus without complications E11.9 ; GERD (gastroesophageal reflux disease) K21.9 ; Peripheral neuropathy G62.9 ; Hypertension I10 ; Sciatic nerve pain M54.30 ; Morbid obesity E66.01 ; COPD ( chronic obstructive pulmonary disease) J44.9 ; Pancreatic lesion K86.9 and Splenic artery aneurysm I72.8 [facility] [address] [address] March, [facility] [address] [id number] [place] [address] 26132- 1777 March, H/O hypercholesterolemia Z86.39 ; Leg cramps R25.2 ; Hypertension I10 and GERD (gastroesophageal reflux disease) K21.9 [facility] [address] [address] Sep, Type 2 diabetes mellitus without complications E11.9 ; GERD (gastroesophageal reflux disease) K21.9 ; Peripheral neuropathy G62.9 ; Hypertension I10 ; Sciatic nerve pain M54.30 ; Morbid obesity E66.01 ; COPD ( chronic obstructive pulmonary disease) J44.9 ; Leg cramps R25.2 ; Other depression F32.8 ; H/O hypercholesterolemia Z86.39 and Degenerative lumbar spinal stenosis M48.06 [place] [address] 56730- 9595 Aug, [place] [address] 98979- 3671 Jun, [place] [address] 69599- 4677 Jun, [place] [address] 66853- 5203 Jun, [place] [address] 54501- 6852 May, Peripheral neuropathy G62.9 ; Sciatic nerve pain M54.30 ; Morbid obesity E66.01 ; Other depression F32.8 and Lumbago with sciatica, right side M54.41 [place] [address] [address] [id number] [place] [address] 88265- 7658 Apr, [place] [address] [id number] [place] [address] 61386- 2731 Apr, Pain in thoracic spine M54.6 ; Other chronic pain G89.29 ; Lumbago with sciatica, left side M54.42 ; Lumbago with sciatica, right side M54.41 ; Onycholysis L60.1 and Intractable vomiting with nausea, vomiting of unspecified type R11.2 [place] [address] [id number] [place] [address] 76363- 0301 March, [place] [address] [address] [id number] [place] [address] 79099- 0392 March, Type 2 diabetes mellitus without complications E11.9 ; Onycholysis L60.1 and Encounter for screening colonoscopy Z12.11 [facility] [id number] [place] [address] 65481- 9489 Feb, [facility] [address] 18134- 3645 15 Feb, 2016 Peripheral neuropathy G62.9 and Leg cramps R25.2 [facility] [address] 16583 -5153 Jan, Influenza A J10.1 and Body aches R52 [facility] [address] [id number] [place] [address] 80354- 8890 09 Dec, 2015 GERD (gastroesophageal reflux disease) K21.9 ; Peripheral neuropathy G62.9 ; Hypertension I10 ; Morbid obesity E66.01 ; Encounter for immunization Z23 ; Type 2 diabetes mellitus without complications E11.9 and COPD (chronic obstructive pulmonary disease) J44.9 [place] [address] 98197- 3960 Dec, [facility] [address] 47702- 2491 Dec, Morbid obesity E66.01 [facility] [address] [id number] [place] [address] 25405- 1629 Nov, [place] [address] [address] [id number] [place] [address] 74585- 9897 Nov, [facility] [address] [id number] [place] [address] 25259- 9125 Nov, [facility] [id number] [place] [address] 33961- 7443 Nov, [place] [address] [place] [id number] [place] [address] 15875- 5431 Oct, [facility] [id number] [place] [address] 27913- 0098 Oct, [place] [address] [id number] [place] [address] 77485- 8163 Oct, [place] [address] 11638- 9210 Oct, [place] [address] 93318- 5435 24 Sep, 2015 Type 2 diabetes mellitus without complications E11.9 ; GERD (gastroesophageal reflux disease) K21.9 ; Peripheral neuropathy G62.9 ; Hypertension I10 ; H/O hypercholesterolemia Z86.39 ; Morbid obesity E66.01 and Sciatic nerve pain M54.[address] 14486- 0498 11 Sep, 2015 General medical exam Z00.00 ; Abnormal chest x-ray R93.8 ; Type 2 diabetes mellitus without complications E11.9 and GERD (gastroesophageal reflux disease) K21.[address] 93955- 3754 10 Sep, 2015 General medical exam Z00.00 ; Type 2 diabetes mellitus without complications E11.9 ; GERD (gastroesophageal reflux disease) K21.9 ; Abnormal chest x-ray R93.8 ; Leg cramps R25.2 ; Dietary counseling Z71.3 ; Exercise counseling Z71.89 ; Peripheral neuropathy G62.9 ; Hypertension I10 ; H/ O hypercholesterolemia Z86.39 ; Sciatic nerve pain M54.30 and Morbid obesity E66.01 [place] [id number] [place] [address] 16932- 6917 March, [place] [id number] [place] [address] 27211- 1754 Sep, IMMUNIZATIONS No Known Immunizations SOCIAL HISTORY Never Assessed REASON FOR VISIT PALS PLAN OF CARE VITAL SIGNS MEDICATIONS Medication Instructions Dosage Frequency Start Date End Date Duration Status Breo Ellipta 100-25 MCG/INH Inhalation Once a day 1 puff 24h Active Spiriva HandiHaler 18 MCG Inhalation Once a day 1 capsule 24h Active Savella 100 mg Orally 2 times a day 1 tablet 12h 15 Feb, 2016 Active Ventolin HFA 108 (90 Base) MCG/ACT Inhalation every 4 hrs 2 puffs as needed 4h Active RESULTS No Results PROCEDURES No Known [...]
--- OUTSIDE RECORDS SUMMARY | 2019-01-25 17:58 | XMS REPORT ---
Author Author NIKI AKISN Organization [facility] Address [address] [place] [address] Care Team Providers Care Cartridge Filler Name Role Phone NIKI AKINS Unavailable PROBLEMS Type Condition ICD9-CM Code [id number] Code Onset Dates Condition Status SNOMED Code Problem Pancreatic lesion K86.9 Active 7795020 Problem Primary insomnia F51.01 Active 2548693 Problem Splenic artery aneurysm I72.8 Active 59821380 Problem Type 2 diabetes mellitus without complications E11.9 Active 378056166 Problem Osteoarthritis of spine with radiculopathy, cervical region M47.22 Active 374332598 Problem Hypertriglyceridemia E78.1 Active 658174736 Problem Carpal tunnel syndrome of right wrist G56.01 Active [id number] Problem Type 2 diabetes mellitus with diabetic neuropathy, without long-term current use of insulin E11.40 Active 98440611 Problem Lumbago with sciatica, right side M54.41 Active 90944172 Problem GERD (gastroesophageal reflux disease) K21.9 Active 761343392 Problem Sciatic nerve pain M54.30 Active 07232917 Problem COPD (chronic obstructive pulmonary disease) J44.9 Active 47085152 Problem Hypertension I10 Active 14523356 Problem Leg cramps R25.2 Active 765179548 ALLERGIES No Information ENCOUNTERS Encounter Location Date Diagnosis [facility] [id number] [place] [address] 66400- 8012 Jul, [facility] [id number] [place] [address] 52697- 0537 Jun, Primary insomnia F51.01 and Degenerative lumbar spinal stenosis M48.06 [facility] [id number] [place] [address] 00923- 2954 Apr, Type 2 diabetes mellitus with diabetic neuropathy, without long-term current use of insulin E11.40 ; Primary insomnia F51.01 and Hypertension I10 [place] [id number] [place] [address] 74838- 9040 March, Primary insomnia F51.01 [facility] [address] 88332979- 4343 March, Osteoarthritis of spine with radiculopathy, cervical region M47.22 [facility] [address] 90152- 2573 Feb, Type 2 diabetes mellitus with diabetic neuropathy, without long-term current use of insulin E11.40 [facility] [id number] [place] [address] 98489- 4447 Feb, [place] [address] 71301- 5381 Feb, [place] [address] 37470- 9598 Feb, Actinic keratosis L57.0 and BMI 40.0-44.9, adult Z68.41 [facility] [place] [id number] [place] [address] 30193- 5181 Feb, Type 2 diabetes mellitus without complications E11.9 [facility] [id number] [place] [address] 69736- 9093 Jan, Hypertension I10 ; BMI 40.0-44.9, adult Z68.41 ; Cervicalgia M54.2 and Carpal tunnel syndrome of right wrist G56.01 [place] [id number] [place] [address] 17715- 2119 Jan, [place] [address] 18636- 2654 Jan, [place] [address] 95577- 0496 Jan, [place] [address] 36187- 1850 Dec, Hypertension I10 [facility] [address] [address] 7670 Dec, [facility] [id number] [place] [address] 89851- 7878 Nov, Degenerative lumbar spinal stenosis M48.06 and COPD ( chronic obstructive pulmonary disease) J44.9 [facility] [id number] [place] [address] 83053- 9838 Nov, Onycholysis L60.1 [facility] [id number] [place] [address] 94913- 1238 Nov, Type 2 diabetes mellitus with diabetic neuropathy, without long-term current use of insulin E11.40 ; COPD (chronic obstructive pulmonary disease) J44.9 ; GERD (gastroesophageal reflux disease) K21.9 ; Hypertriglyceridemia E78.1 ; Hypertension I10 ; Degenerative lumbar spinal stenosis M48.06 ; Lumbago with sciatica, right side M54.41 ; Sciatic nerve pain M54.30 and Primary insomnia F51.01 [place] [id number] [place] [address] 12033- 4874 Oct, Hypertension I10 ; Peripheral neuropathy G62.9 ; Type 2 diabetes mellitus without complications E11.9 and COPD (chronic obstructive pulmonary disease) J44.9 [facility] [id number] [place] [address] 83009- 3229 Oct, Peripheral neuropathy G62.9 [facility] [id number] [place] [address] 27169- 3666 Sep, Peripheral neuropathy G62.9 [facility] [id number] [place] [address] 53331- 2894 Aug, Peripheral neuropathy G62.9 [facility] [id number] [place] [address] 60842- 1184 Jul, [place] [id number] [place] [address] 67552- 3637 Jul, [place] [address] [address]- 9683 Jul, Type 2 diabetes mellitus without complications E11.9 ; Splenic artery aneurysm I72.8 ; Pancreatic lesion K86.9 ; Primary insomnia F51.01 ; Peripheral neuropathy G62.9 and Carpal tunnel syndrome of right wrist G56.01 [facility] [id number] [place] [address] 45510- 8108 14 Jun, 2017 Type 2 diabetes mellitus without complications E11.9 and Leg cramps R25.2 [facility] [id number] [place] [address] 18443- 6395 Jun, [facility] [id number] [place] [address] 53818- 5599 May, Splenic artery aneurysm I72.8 ; Pancreatic lesion K86.9 ; Hypertension I10 and Urinary tract infection without hematuria, site unspecified N39.0 [facility] [id number] [place] [address] 51593- 4926 May, Leg cramps R25.2 [facility] [id number] [place] [address] 21378- 4425 May, [facility] [id number] [place] [address] 09845- 4727 May, Type 2 diabetes mellitus without complications E11.9 and GERD (gastroesophageal reflux disease) K21.9 [facility] [address] [address]- 3616 Apr, [facility] [id number] [place] [address] 23268- 5525 Apr, [facility] [id number] [place] [address] 96152- 4974 Apr, [facility] [id number] [place] [address] 54966- 0834 Apr, [facility] [id number] [place] [address] 33337- 3718 Apr, Type 2 diabetes mellitus without complications E11.9 ; GERD (gastroesophageal reflux disease) K21.9 ; Peripheral neuropathy G62.9 ; Hypertension I10 ; Sciatic nerve pain M54.30 ; Morbid obesity E66.01 ; COPD ( chronic obstructive pulmonary disease) J44.9 ; Pancreatic lesion K86.9 and Splenic artery aneurysm I72.8 [place] [id number] [place] [address] 52577- 7095 March, [place] [address] 89919- 4915 March, H/O hypercholesterolemia Z86.39 ; Leg cramps R25.2 ; Hypertension I10 and GERD (gastroesophageal reflux disease) K21.9 [place] [id number] [place] [address] 99132- 2725 Sep, Type 2 diabetes mellitus without complications E11.9 ; GERD (gastroesophageal reflux disease) K21.9 ; Peripheral neuropathy G62.9 ; Hypertension I10 ; Sciatic nerve pain M54.30 ; Morbid obesity E66.01 ; COPD ( chronic obstructive pulmonary disease) J44.9 ; Leg cramps R25.2 ; Other depression F32.8 ; H/O hypercholesterolemia Z86.39 and Degenerative lumbar spinal stenosis M48.06 [place] [id number] [place] [address] 93261- 2704 Aug, [place] [id number] [place] [address] 02392- 2065 Jun, [place] [id number] [place] [address] 51550- 9358 Jun, [place] [address] 49375- 7612 Jun, [place] [address] 42660- 5944 May, Peripheral neuropathy G62.9 ; Sciatic nerve pain M54.30 ; Morbid obesity E66.01 ; Other depression F32.8 and Lumbago with sciatica, right side M54.41 [place] [address] 10786- 9894 Apr, [address] 58428- 9118 07 Apr, 2016 Pain in thoracic spine M54.6 ; Other chronic pain G89.29 ; Lumbago with sciatica, left side M54.42 ; Lumbago with sciatica, right side M54.41 ; Onycholysis L60.1 and Intractable vomiting with nausea, vomiting of unspecified type R11.[address] 43261- 0222 March, [address] 40149- 5621 March, Type 2 diabetes mellitus without complications E11.9 ; Onycholysis L60.1 and Encounter for screening colonoscopy Z12.[address] 26901- 8930 Feb, [address] 40757- 5639 Feb, Peripheral neuropathy G62.9 and Leg cramps R25.2 [facility] IN [facility] [address] [place] [address] 90382 -8871 Jan, Influenza A J10.1 and Body aches R52 [address] 00343- 5671 09 Dec, 2015 GERD (gastroesophageal reflux disease) K21.9 ; Peripheral neuropathy G62.9 ; Hypertension I10 ; Morbid obesity E66.01 ; Encounter for immunization Z23 ; Type 2 diabetes mellitus without complications E11.9 and COPD (chronic obstructive pulmonary disease) J44.[address] 07169- 5540 08 Dec, [address] 33670- 3923 04 Dec, 2015 Morbid obesity E66.01 [facility] [address] [address]- 7266 Nov, [facility] [id number] [place] [address] 75736- 7914 Nov, [facility] [address] [address]- 6528 Nov, [facility] [id number] [place] [address] 48752- 2830 Nov, [facility] [id number] [place] [address] 88050- 7135 Oct, [facility] [id number] [place] [address] 02070- 1290 Oct, [facility] [id number] [place] [address] 16048- 4283 Oct, [facility] [id number] [place] [address] 86242- 8315 Oct, [facility] [address] [address]- 2834 Sep, Type 2 diabetes mellitus without complications E11.9 ; GERD (gastroesophageal reflux disease) K21.9 ; Peripheral neuropathy G62.9 ; Hypertension I10 ; H/O hypercholesterolemia Z86.39 ; Morbid obesity E66.01 and Sciatic nerve pain M54.30 [facility] [address] [address]- 4467 Sep, General medical exam Z00.00 ; Abnormal chest x-ray R93.8 ; Type 2 diabetes mellitus without complications E11.9 and GERD (gastroesophageal reflux disease) K21.9 [facility] [address] [address]- 6675 10 Sep, 2015 General medical exam Z00.00 ; Type 2 diabetes mellitus without complications E11.9 ; GERD (gastroesophageal reflux disease) K21.9 ; Abnormal chest x-ray R93.8 ; Leg cramps R25.2 ; Dietary counseling Z71.3 ; Exercise counseling Z71.89 ; Peripheral neuropathy G62.9 ; Hypertension I10 ; H/ O hypercholesterolemia Z86.39 ; Sciatic nerve pain M54.30 and Morbid obesity E66.01 [facility] [address] [facility] [id number] [place] [address] March, [facility] [address] [facility] [id number] [place] [address]- 9326 Sep, IMMUNIZATIONS No Known Immunizations SOCIAL HISTORY Never Assessed REASON FOR VISIT Repository Medication PLAN OF CARE VITAL SIGNS MEDICATIONS Medication Instructions Dosage Frequency Start Date End Date Duration Status Metformin HCl 850 MG Orally Twice a day 1 tablet with meals 12h 90 days Active Trazodone HCl 50 mg Orally Once a day take 3 tablets at bedtime 24h 90 days Active Cyclobenzaprine HCl 10 mg Orally Three times a day 1 tablet as needed 8h 30 Active Lisinopril 10 mg Orally Once a day TAKE ONE TABLET BY MOUTH DAILY 24h 90 days Active Norvasc 10 mg Orally Once a day 1 tablet 24h 30 days Active RESULTS No Results PROCEDURES No [...]
--- OUTSIDE RECORDS SUMMARY | 2019-01-25 17:59 | XMS REPORT ---
Author Author NIKI AKINS Organization [facility] Address [address] [place] [address] Care Team Providers Care Etcher Aircraft Name Role Phone NIKI AKINS Unavailable PROBLEMS Type Condition ICD9-CM Code UWL68-RF Code Onset Dates Condition Status SNOMED Code Problem Pancreatic lesion K86.9 Active 0150652 Problem Primary insomnia F51.01 Active 4801553 Problem Splenic artery aneurysm I72.8 Active 30506291 Problem Type 2 diabetes mellitus without complications E11.9 Active 748015895 Problem Osteoarthritis of spine with radiculopathy, cervical region M47.22 Active 666589860 Problem Hypertriglyceridemia E78.1 Active 967710589 Problem Carpal tunnel syndrome of right wrist G56.01 Active 900670329099175 Problem Type 2 diabetes mellitus with diabetic neuropathy, without long-term current use of insulin E11.40 Active 99032038 Problem Lumbago with sciatica, right side M54.41 Active 45818916 Problem GERD (gastroesophageal reflux disease) K21.9 Active 019568230 Problem Sciatic nerve pain M54.30 Active 32906465 Problem COPD (chronic obstructive pulmonary disease) J44.9 Active 87963846 Problem Hypertension I10 Active 16606121 Problem Leg cramps R25.2 Active 685645735 ALLERGIES No Information ENCOUNTERS Encounter Location Date Diagnosis [facility] [address] [place] [address] 69525- 9603 Apr, Type 2 diabetes mellitus with diabetic neuropathy, without long-term current use of insulin E11.40 ; Primary insomnia F51.01 and Hypertension I10 [facility] [address] [place] [address] 19258- 0813 March, Primary insomnia F51.01 [facility] [address] [address]- 9208 March, Osteoarthritis of spine with radiculopathy, cervical region M47.22 [place] [address] [place] [address] 11665- 8728 Feb, Type 2 diabetes mellitus with diabetic neuropathy, without long-term current use of insulin E11.40 [place] [id number] [place] [address] 86865- 4530 Feb, [place] [address] 74300- 6016 Feb, [place] [id number] [place] [address] 90459- 4713 Feb, Actinic keratosis L57.0 and BMI 40.0-44.9, adult Z68.41 [place] [id number] [place] [address] 95331- 0400 Feb, Type 2 diabetes mellitus without complications E11.9 [place] [id number] [place] [address] 88538- 1920 Jan, Hypertension I10 ; BMI 40.0-44.9, adult Z68.41 ; Cervicalgia M54.2 and Carpal tunnel syndrome of right wrist G56.01 [place] [id number] [place] [address] 49239- 7766 Jan, [place] [id number] [place] [address] 57554- 8406 Jan, [place] [id number] [place] [address] 40686- 0094 Jan, [place] [id number] [place] [address] 66163- 2164 Dec, Hypertension I10 [place] [id number] [place] [address] 63063- 6188 Dec, [place] [id number] [place] [address] 99683- 4905 Nov, Degenerative lumbar spinal stenosis M48.06 and COPD ( chronic obstructive pulmonary disease) J44.9 [facility] [id number] [place] [address] 01434- 2796 Nov, Onycholysis L60.1 [facility] [id number] [place] [address] 41269- 7277 Nov, Type 2 diabetes mellitus with diabetic neuropathy, without long-term current use of insulin E11.40 ; COPD (chronic obstructive pulmonary disease) J44.9 ; GERD (gastroesophageal reflux disease) K21.9 ; Hypertriglyceridemia E78.1 ; Hypertension I10 ; Degenerative lumbar spinal stenosis M48.06 ; Lumbago with sciatica, right side M54.41 ; Sciatic nerve pain M54.30 and Primary insomnia F51.01 [place] [id number] [place] [address] 74474- 6127 Oct, Hypertension I10 ; Peripheral neuropathy G62.9 ; Type 2 diabetes mellitus without complications E11.9 and COPD (chronic obstructive pulmonary disease) J44.9 [place] [id number] [place] [address] 58001- 9372 Oct, Peripheral neuropathy G62.9 [place] [address] 99045- 5668 Sep, Peripheral neuropathy G62.9 [place] [id number] [place] [address] 75415- 4473 Aug, Peripheral neuropathy G62.9 [place] [id number] [place] [address] 19396- 5201 Jul, [place] [id number] [place] [address] 99553- 7109 Jul, [place] [address] 86461- 6571 21 Jul, 2017 Type 2 diabetes mellitus without complications E11.9 ; Splenic artery aneurysm I72.8 ; Pancreatic lesion K86.9 ; Primary insomnia F51.01 ; Peripheral neuropathy G62.9 and Carpal tunnel syndrome of right wrist G56.01 [place] [address] [address]- 8007 14 Jun, 2017 Type 2 diabetes mellitus without complications E11.9 and Leg cramps R25.2 [facility] [id number] [place] [address] 06531- 5547 Jun, [facility] [id number] [place] [address] 83779- 0180 May, Splenic artery aneurysm I72.8 ; Pancreatic lesion K86.9 ; Hypertension I10 and Urinary tract infection without hematuria, site unspecified N39.0 [facility] [id number] [address]- 8096 14 May, 2017 Leg cramps R25.2 [facility] [id number] [place] [address] 01007- 5565 May, [place] [id number] [place] [address] 86105- 1284 May, Type 2 diabetes mellitus without complications E11.9 and GERD (gastroesophageal reflux disease) K21.9 [facility] [address] [address]- 3610 Apr, [facility] [id number] [place] [address] 06881- 5410 Apr, [facility] [address] [address]- 1718 Apr, [facility] [address] [address]- 8777 Apr, [facility] [address] [address]- 5989 Apr, Type 2 diabetes mellitus without complications E11.9 ; GERD (gastroesophageal reflux disease) K21.9 ; Peripheral neuropathy G62.9 ; Hypertension I10 ; Sciatic nerve pain M54.30 ; Morbid obesity E66.01 ; COPD ( chronic obstructive pulmonary disease) J44.9 ; Pancreatic lesion K86.9 and Splenic artery aneurysm I72.8 [facility] [id number] [place] [address] 62343- 2787 March, [place] [address] 79796- 8940 March, H/O hypercholesterolemia Z86.39 ; Leg cramps R25.2 ; Hypertension I10 and GERD (gastroesophageal reflux disease) K21.9 [place] [address] 59602- 3888 Sep, Type 2 diabetes mellitus without complications E11.9 ; GERD (gastroesophageal reflux disease) K21.9 ; Peripheral neuropathy G62.9 ; Hypertension I10 ; Sciatic nerve pain M54.30 ; Morbid obesity E66.01 ; COPD ( chronic obstructive pulmonary disease) J44.9 ; Leg cramps R25.2 ; Other depression F32.8 ; H/O hypercholesterolemia Z86.39 and Degenerative lumbar spinal stenosis M48.06 [place] [address] 07833- 1206 Aug, [place] [address] 55055- 0493 Jun, [place] [address] 40714- 3203 Jun, [place] [id number] [place] [address] 24747- 5815 Jun, [place] [id number] [place] [address] 88584- 2682 May, Peripheral neuropathy G62.9 ; Sciatic nerve pain M54.30 ; Morbid obesity E66.01 ; Other depression F32.8 and Lumbago with sciatica, right side M54.41 [place] [id number] [place] [address] 18476- 4134 Apr, [place] [id number] [place] [address] 15304- 8109 07 Apr, 2016 Pain in thoracic spine M54.6 ; Other chronic pain G89.29 ; Lumbago with sciatica, left side M54.42 ; Lumbago with sciatica, right side M54.41 ; Onycholysis L60.1 and Intractable vomiting with nausea, vomiting of unspecified type R11.2 [facility] [id number] [place] [address] 95495- 3591 March, [place] [address] 13238- 8392 March, Type 2 diabetes mellitus without complications E11.9 ; Onycholysis L60.1 and Encounter for screening colonoscopy Z12.11 [place] [address] 01665- 5323 Feb, [place] [address] 13276- 8351 15 Feb, 2016 Peripheral neuropathy G62.9 and Leg cramps R25.2 [facility] [address] 99024 -8741 Jan, Influenza A J10.1 and Body aches R52 [place] [address] 41408- 2843 09 Dec, 2015 GERD (gastroesophageal reflux disease) K21.9 ; Peripheral neuropathy G62.9 ; Hypertension I10 ; Morbid obesity E66.01 ; Encounter for immunization Z23 ; Type 2 diabetes mellitus without complications E11.9 and COPD (chronic obstructive pulmonary disease) J44.9 [place] [id number] [place] [address] 45608- 0035 08 Dec, 2015 [place] [id number] [place] [address] 89895- 2300 04 Dec, 2015 Morbid obesity E66.01 [place] [address] 48588- 3699 Nov, [place] [address] 44467- 7854 Nov, [place] [address] [place] [address]- 8305 Nov, [facility] [address] [address]- 4459 Nov, [facility] [address] [address]- 3202 Oct, [facility] [id number] [place] [address] 87616- 7178 Oct, [facility] [id number] [place] [address] 45463- 4256 Oct, [facility] [id number] [place] [address] 33268- 2330 Oct, [facility] [id number] [place] [address] 70029- 1597 Sep, Type 2 diabetes mellitus without complications E11.9 ; GERD (gastroesophageal reflux disease) K21.9 ; Peripheral neuropathy G62.9 ; Hypertension I10 ; H/O hypercholesterolemia Z86.39 ; Morbid obesity E66.01 and Sciatic nerve pain M54.30 [place] [address] [place] [address] 68930- 8443 11 Sep, 2015 General medical exam Z00.00 ; Abnormal chest x-ray R93.8 ; Type 2 diabetes mellitus without complications E11.9 and GERD (gastroesophageal reflux disease) K21.9 [place] [address] [place] [address] 23150- 6345 10 Sep, 2015 General medical exam Z00.00 ; Type 2 diabetes mellitus without complications E11.9 ; GERD (gastroesophageal reflux disease) K21.9 ; Abnormal chest x-ray R93.8 ; Leg cramps R25.2 ; Dietary counseling Z71.3 ; Exercise counseling Z71.89 ; Peripheral neuropathy G62.9 ; Hypertension I10 ; H/ O hypercholesterolemia Z86.39 ; Sciatic nerve pain M54.30 and Morbid obesity E66.01 [place] [address] [place] [address] 47096- 7064 March, [place] [address] [facility] [id number] [place] [address]- 3849 Sep, IMMUNIZATIONS No Known Immunizations SOCIAL HISTORY Never Assessed REASON FOR VISIT suture removal. DANNI Liang, Patient was in last week for a procedure, patient returning today for suture removal. PLAN OF CARE VITAL SIGNS MEDICATIONS Unknown [...]
--- OUTSIDE RECORDS SUMMARY | 2019-01-25 17:59 | XMS REPORT ---
Author Author NIKI AKINS Organization [facility] Address [address] [place] [address] Care Team Providers Care Wheel Buffer Name Role Phone NIKI AKINS Unavailable PROBLEMS Type Condition ICD9-CM Code VWV76-GR Code Onset Dates Condition Status SNOMED Code Problem Pancreatic lesion K86.9 Active 4649464 Problem Primary insomnia F51.01 Active 6089395 Problem Splenic artery aneurysm I72.8 Active 03353600 Problem Type 2 diabetes mellitus without complications E11.9 Active 450184716 Problem Osteoarthritis of spine with radiculopathy, cervical region M47.22 Active 011609594 Problem Hypertriglyceridemia E78.1 Active 251255913 Problem Carpal tunnel syndrome of right wrist G56.01 Active 542300418857135 Problem Type 2 diabetes mellitus with diabetic neuropathy, without long-term current use of insulin E11.40 Active 10386722 Problem Lumbago with sciatica, right side M54.41 Active 58101011 Problem GERD (gastroesophageal reflux disease) K21.9 Active 991348916 Problem Sciatic nerve pain M54.30 Active 18270891 Problem COPD (chronic obstructive pulmonary disease) J44.9 Active 42401933 Problem Hypertension I10 Active 21021419 Problem Leg cramps R25.2 Active 216259753 ALLERGIES No Information ENCOUNTERS Encounter Location Date Diagnosis [facility] [id number] [place] [address] 28612- 4580 Jul, [facility] [id number] [place] [address] 68245- 3432 Jun, Primary insomnia F51.01 and Degenerative lumbar spinal stenosis M48.06 [facility] [id number] [place] [address] 36711- 1213 Apr, Type 2 diabetes mellitus with diabetic neuropathy, without long-term current use of insulin E11.40 ; Primary insomnia F51.01 and Hypertension I10 [facility] [id number] [place] [address] 67695- 2992 March, Primary insomnia F51.01 [facility] [address] [place] [place] [id number]- [phone] March, Osteoarthritis of spine with radiculopathy, cervical region M47.22 [facility] [address] [address]15- [address]235 Feb, Type 2 diabetes mellitus with diabetic neuropathy, without long-term current use of insulin E11.40 [facility] [id number] [place] [address] 66961- 9123 Feb, [facility] [facility] [address] 53248- 7861 Feb, [facility] [address] 43707- 5432 Feb, Actinic keratosis L57.0 and BMI 40.0-44.9, adult Z68.41 [facility] [id number] [place] [address] 46278- 0480 Feb, Type 2 diabetes mellitus without complications E11.9 [facility] [id number] [place] [address] 07341- 2508 Jan, Hypertension I10 ; BMI 40.0-44.9, adult Z68.41 ; Cervicalgia M54.2 and Carpal tunnel syndrome of right wrist G56.01 [facility] [id number] [place] [address] 09325- 5933 Jan, [facility] [facility] [address] 47985- 3723 Jan, [facility] [address] 8[address]18- 2013 Jan, [facility] [address] 11242- 6086 Dec, Hypertension I10 [facility] [address] [address] Dec, [facility] [id number] [place] [address] 40034- 5293 Nov, Degenerative lumbar spinal stenosis M48.06 and COPD ( chronic obstructive pulmonary disease) J44.9 [facility] [id number] [place] [address] 37086- 0618 Nov, Onycholysis L60.1 [facility] [id number] [place] [address] 85236- 6766 Nov, Type 2 diabetes mellitus with diabetic neuropathy, without long-term current use of insulin E11.40 ; COPD (chronic obstructive pulmonary disease) J44.9 ; GERD (gastroesophageal reflux disease) K21.9 ; Hypertriglyceridemia E78.1 ; Hypertension I10 ; Degenerative lumbar spinal stenosis M48.06 ; Lumbago with sciatica, right side M54.41 ; Sciatic nerve pain M54.30 and Primary insomnia F51.01 [facility] [id number] [place] [address] 06486- 3436 Oct, Hypertension I10 ; Peripheral neuropathy G62.9 ; Type 2 diabetes mellitus without complications E11.9 and COPD (chronic obstructive pulmonary disease) J44.9 [facility] [id number] [place] [address] 60469- 9942 Oct, Peripheral neuropathy G62.9 [facility] [id number] [place] [address] 01937- 8683 Sep, Peripheral neuropathy G62.9 [facility] [id number] [place] [address] 06151- 9462 Aug, Peripheral neuropathy G62.9 [facility] [id number] [place] [address] 41162- 9510 Jul, [facility] [id number] [place] [address] 87992- 6421 Jul, [facility] [address] [address] Jul, Type 2 diabetes mellitus without complications E11.9 ; Splenic artery aneurysm I72.8 ; Pancreatic lesion K86.9 ; Primary insomnia F51.01 ; Peripheral neuropathy G62.9 and Carpal tunnel syndrome of right wrist G56.01 [facility] [id number] [place] [address] 42282- 9819 14 Jun, 2017 Type 2 diabetes mellitus without complications E11.9 and Leg cramps R25.2 [facility] [id number] [place] [address] 12751- 8989 Jun, [facility] [id number] [place] [address] 04746- 4833 May, Splenic artery aneurysm I72.8 ; Pancreatic lesion K86.9 ; Hypertension I10 and Urinary tract infection without hematuria, site unspecified N39.0 [facility] [id number] [place] [address] 97492- 7434 May, Leg cramps R25.2 [facility] [id number] [place] [address] 89366- 4294 May, [facility] [id number] [place] [address] 21221- 5037 May, Type 2 diabetes mellitus without complications E11.9 and GERD (gastroesophageal reflux disease) K21.9 [facility] [address] [address] 0686 Apr, [facility] [id number] [place] [address] 17903- 7276 Apr, [facility] [id number] [place] [address] 89527- 7689 Apr, [facility] [id number] [place] [address] 99622- 9268 Apr, [facility] [id number] [place] [address] 05716- 3051 Apr, Type 2 diabetes mellitus without complications E11.9 ; GERD (gastroesophageal reflux disease) K21.9 ; Peripheral neuropathy G62.9 ; Hypertension I10 ; Sciatic nerve pain M54.30 ; Morbid obesity E66.01 ; COPD ( chronic obstructive pulmonary disease) J44.9 ; Pancreatic lesion K86.9 and Splenic artery aneurysm I72.8 [facility] [id number] [place] [address] 64951- 4745 March, [facility] [address] 31551- 4633 March, H/O hypercholesterolemia Z86.39 ; Leg cramps R25.2 ; Hypertension I10 and GERD (gastroesophageal reflux disease) K21.9 [facility] [id number] [place] [address] 81810- 0222 Sep, Type 2 diabetes mellitus without complications E11.9 ; GERD (gastroesophageal reflux disease) K21.9 ; Peripheral neuropathy G62.9 ; Hypertension I10 ; Sciatic nerve pain M54.30 ; Morbid obesity E66.01 ; COPD ( chronic obstructive pulmonary disease) J44.9 ; Leg cramps R25.2 ; Other depression F32.8 ; H/O hypercholesterolemia Z86.39 and Degenerative lumbar spinal stenosis M48.06 [facility] [id number] [place] [address] 83390- 6428 Aug, [facility] [id number] [place] [address] 97088- 5800 Jun, [facility] [id number] [place] [address] 64531- 5788 Jun, [facility] [address] 20052- 1640 Jun, [place] [address] 55340- 4015 May, Peripheral neuropathy G62.9 ; Sciatic nerve pain M54.30 ; Morbid obesity E66.01 ; Other depression F32.8 and Lumbago with sciatica, right side M54.41 [place] [address] 87802- 0076 Apr, [address] 27006- 0871 07 Apr, 2016 Pain in thoracic spine M54.6 ; Other chronic pain G89.29 ; Lumbago with sciatica, left side M54.42 ; Lumbago with sciatica, right side M54.41 ; Onycholysis L60.1 and Intractable vomiting with nausea, vomiting of unspecified type R11.[address] 71050- 5496 March, [address] 20888- 2615 March, Type 2 diabetes mellitus without complications E11.9 ; Onycholysis L60.1 and Encounter for screening colonoscopy Z12.[address] 88232- 6036 Feb, [address] 31006- 6353 Feb, Peripheral neuropathy G62.9 and Leg cramps R25.2 [facility] [address] [place] [address] 17332 -1713 Jan, Influenza A J10.1 and Body aches R52 [address] 77459- 2261 09 Dec, 2015 GERD (gastroesophageal reflux disease) K21.9 ; Peripheral neuropathy G62.9 ; Hypertension I10 ; Morbid obesity E66.01 ; Encounter for immunization Z23 ; Type 2 diabetes mellitus without complications E11.9 and COPD (chronic obstructive pulmonary disease) J44.[address] 80747- 1105 08 Dec, [address] 24883- 3656 04 Dec, 2015 Morbid obesity E66.01 [facility] [address] [address]- 5110 Nov, [facility] [id number] [place] [address] 62789- 1580 Nov, [facility] [address] [address]- 4703 Nov, [facility] [id number] [place] [address] 59395- 4811 Nov, [facility] [id number] [place] [address] 72608- 1945 Oct, [facility] [id number] [place] [address] 30999- 8258 Oct, [facility] [id number] [place] [address] 92357- 2054 Oct, [facility] [id number] [place] [address] 90094- 1787 Oct, [facility] [address] [address]- 5751 Sep, Type 2 diabetes mellitus without complications E11.9 ; GERD (gastroesophageal reflux disease) K21.9 ; Peripheral neuropathy G62.9 ; Hypertension I10 ; H/O hypercholesterolemia Z86.39 ; Morbid obesity E66.01 and Sciatic nerve pain M54.30 [facility] [address] [address]- 7717 Sep, General medical exam Z00.00 ; Abnormal chest x-ray R93.8 ; Type 2 diabetes mellitus without complications E11.9 and GERD (gastroesophageal reflux disease) K21.9 [facility] [address] [address]- 0735 10 Sep, 2015 General medical exam Z00.00 ; Type 2 diabetes mellitus without complications E11.9 ; GERD (gastroesophageal reflux disease) K21.9 ; Abnormal chest x-ray R93.8 ; Leg cramps R25.2 ; Dietary counseling Z71.3 ; Exercise counseling Z71.89 ; Peripheral neuropathy G62.9 ; Hypertension I10 ; H/ O hypercholesterolemia Z86.39 ; Sciatic nerve pain M54.30 and Morbid obesity E66.01 [facility] [address] [facility] [id number] [place] [address] March, [facility] [address] [facility] [id number] [place] [address]- 6587 Sep, IMMUNIZATIONS No Known Immunizations SOCIAL HISTORY [...]
--- OUTSIDE RECORDS SUMMARY | 2019-01-25 17:59 | XMS REPORT ---
Author Author NIKI AKINS Organization [facility] Address [address] [place] [address] Care Team Providers Care Half Section Ironer Name Role Phone NIKI AKINS Unavailable PROBLEMS Type Condition ICD9-CM Code [id number] Code Onset Dates Condition Status SNOMED Code Problem Pancreatic lesion K86.9 Active 5420604 Problem Primary insomnia F51.01 Active 7488422 Problem Splenic artery aneurysm I72.8 Active 94315124 Problem Type 2 diabetes mellitus without complications E11.9 Active 833185114 Problem Osteoarthritis of spine with radiculopathy, cervical region M47.22 Active 630371231 Problem Hypertriglyceridemia E78.1 Active 037338467 Problem Carpal tunnel syndrome of right wrist G56.01 Active [id number] Problem Type 2 diabetes mellitus with diabetic neuropathy, without long-term current use of insulin E11.40 Active 37781916 Problem Lumbago with sciatica, right side M54.41 Active 63573101 Problem GERD (gastroesophageal reflux disease) K21.9 Active 502111613 Problem Sciatic nerve pain M54.30 Active 27657009 Problem COPD (chronic obstructive pulmonary disease) J44.9 Active 53843684 Problem Hypertension I10 Active 43290531 Problem Leg cramps R25.2 Active 002630071 ALLERGIES No Information ENCOUNTERS Encounter Location Date Diagnosis [facility] [id number] [address] 33642- 2742 Apr, Type 2 diabetes mellitus with diabetic neuropathy, without long-term current use of insulin E11.40 ; Primary insomnia F51.01 and Hypertension I10 [facility] [id number] [place] [address] 91150- 9967 March, Primary insomnia F51.01 [facility] [address] [address] March, Osteoarthritis of spine with radiculopathy, cervical region M47.22 [facility] [address] [place] [address] 35455- 6825 Feb, Type 2 diabetes mellitus with diabetic neuropathy, without long-term current use of insulin E11.40 [facility] [address] [place] [id number] [place] [address] 04596- 3252 Feb, [facility] [address] [address]- [address]202 Feb, [facility] [address] [place] [id number] [place] [address] 62067- 4492 Feb, Actinic keratosis L57.0 and BMI 40.0-44.9, adult Z68.41 [facility] [address] [id number] [place] [address] 69514- 8953 Feb, Type 2 diabetes mellitus without complications E11.9 [facility] [address] [id number] [address] 37980- 9771 Jan, Hypertension I10 ; BMI 40.0-44.9, adult Z68.41 ; Cervicalgia M54.2 and Carpal tunnel syndrome of right wrist G56.01 [facility] [address] [place] [id number] [address] 87537- 7065 Jan, [facility] [address] [place] [id number] [place] [address] 09588- 3092 Jan, [facility] [address] [place] [id number] [place] [address] 65649- 7867 Jan, [facility] [address] [place] [id number] [place] [address] 14848- 9780 Dec, Hypertension I10 [facility] [address] [id number] [place] [address] 38874- 9033 Dec, [facility] [address] [place] [id number] [place] [address] 88472- 1285 Nov, Degenerative lumbar spinal stenosis M48.06 and COPD ( chronic obstructive pulmonary disease) J44.9 [facility] [id number] [place] [address] 99360- 1004 Nov, Onycholysis L60.1 [facility] [id number] [address] 00215- 9656 Nov, Type 2 diabetes mellitus with diabetic neuropathy, without long-term current use of insulin E11.40 ; COPD (chronic obstructive pulmonary disease) J44.9 ; GERD (gastroesophageal reflux disease) K21.9 ; Hypertriglyceridemia E78.1 ; Hypertension I10 ; Degenerative lumbar spinal stenosis M48.06 ; Lumbago with sciatica, right side M54.41 ; Sciatic nerve pain M54.30 and Primary insomnia F51.01 [facility] [id number] [address] 04600- 0660 Oct, Hypertension I10 ; Peripheral neuropathy G62.9 ; Type 2 diabetes mellitus without complications E11.9 and COPD (chronic obstructive pulmonary disease) J44.9 [facility] [address] [place] [id number] [address] 88902- 3201 Oct, Peripheral neuropathy G62.9 [facility] [address] 73179- 6770 Sep, Peripheral neuropathy G62.9 [facility] [address] [place] [id number] [place] [address] 25299- 8806 Aug, Peripheral neuropathy G62.9 [facility] [address] [id number] [place] [address] 08056- 2702 Jul, [facility] [place] [address] [place] [id number] [place] [address] 40184- 3538 Jul, [facility] [place] [address] 20588- 2246 21 Jul, 2017 Type 2 diabetes mellitus without complications E11.9 ; Splenic artery aneurysm I72.8 ; Pancreatic lesion K86.9 ; Primary insomnia F51.01 ; Peripheral neuropathy G62.9 and Carpal tunnel syndrome of right wrist G56.01 [facility] [address] [address] 8395 14 Jun, 2017 Type 2 diabetes mellitus without complications E11.9 and Leg cramps R25.2 [facility] [id number] [address] 28451- 9524 Jun, [facility] [id number] [place] [address] 12760- 3849 May, Splenic artery aneurysm I72.8 ; Pancreatic lesion K86.9 ; Hypertension I10 and Urinary tract infection without hematuria, site unspecified N39.0 [facility] [id number] [address] 6393 14 May, 2017 Leg cramps R25.2 [facility] [address] [id number] [address] 22014- 3462 May, [facility] [place] [address] [id number] [place] [address] 92728- 7540 May, Type 2 diabetes mellitus without complications E11.9 and GERD (gastroesophageal reflux disease) K21.9 [facility] [address] [address] 7282 Apr, [facility] [address] [id number] [place] [address] 40523- 4507 Apr, [facility] [address] [address]- 7047 Apr, [facility] [address] [address]- 6860 Apr, [facility] [address] [address]- 1535 Apr, Type 2 diabetes mellitus without complications E11.9 ; GERD (gastroesophageal reflux disease) K21.9 ; Peripheral neuropathy G62.9 ; Hypertension I10 ; Sciatic nerve pain M54.30 ; Morbid obesity E66.01 ; COPD ( chronic obstructive pulmonary disease) J44.9 ; Pancreatic lesion K86.9 and Splenic artery aneurysm I72.8 [place] [address] [id number] [address] 75774- 1150 March, [facility] [place] [address] 42913- 1357 March, H/O hypercholesterolemia Z86.39 ; Leg cramps R25.2 ; Hypertension I10 and GERD (gastroesophageal reflux disease) K21.9 [facility] [place] [address] 86977- 4119 Sep, Type 2 diabetes mellitus without complications E11.9 ; GERD (gastroesophageal reflux disease) K21.9 ; Peripheral neuropathy G62.9 ; Hypertension I10 ; Sciatic nerve pain M54.30 ; Morbid obesity E66.01 ; COPD ( chronic obstructive pulmonary disease) J44.9 ; Leg cramps R25.2 ; Other depression F32.8 ; H/O hypercholesterolemia Z86.39 and Degenerative lumbar spinal stenosis M48.06 [place] [place] [address] 34658- 9875 Aug, [place] [address] 03999- 3306 Jun, [place] [address] 51996- 5582 Jun, [place] [place] [address] [id number] [address] 01494- 5447 Jun, [facility] [address] [id number] [address] 67595- 1679 May, Peripheral neuropathy G62.9 ; Sciatic nerve pain M54.30 ; Morbid obesity E66.01 ; Other depression F32.8 and Lumbago with sciatica, right side M54.41 [facility] [address] [place] [id number] [address] 69986- 5988 Apr, [facility] [address] [id number] [address] 60483- 6537 07 Apr, 2016 Pain in thoracic spine M54.6 ; Other chronic pain G89.29 ; Lumbago with sciatica, left side M54.42 ; Lumbago with sciatica, right side M54.41 ; Onycholysis L60.1 and Intractable vomiting with nausea, vomiting of unspecified type R11.2 [facility] [id number] [address] 96226- 0261 March, [place] [place] [address] 11533- 7862 March, Type 2 diabetes mellitus without complications E11.9 ; Onycholysis L60.1 and Encounter for screening colonoscopy Z12.11 [facility] [place] [address] 93965- 4126 Feb, [place] [address] 30231- 9503 15 Feb, 2016 Peripheral neuropathy G62.9 and Leg cramps R25.2 [facility] [address] 8[address] -2714 Jan, Influenza A J10.1 and Body aches R52 [place] [place] [address] 62728- 1898 09 Dec, 2015 GERD (gastroesophageal reflux disease) K21.9 ; Peripheral neuropathy G62.9 ; Hypertension I10 ; Morbid obesity E66.01 ; Encounter for immunization Z23 ; Type 2 diabetes mellitus without complications E11.9 and COPD (chronic obstructive pulmonary disease) J44.9 [facility] [place] [address] [id number] [address] 50497- 0311 08 Dec, 2015 [place] [place] [address] [id number] [address] 92654- 9754 04 Dec, 2015 Morbid obesity E66.01 [place] [place] [address] 18122- 0570 Nov, [place] [address] 54631- 3196 Nov, [place] [address] [place] [address]- 9406 Nov, [facility] [address] [address]- 7319 Nov, [facility] [address] [address]- 5872 Oct, [facility] [address] [place] [id number] [place] [address] 68449- 8289 Oct, [facility] [id number] [place] [address] 55038- 0741 Oct, [facility] [address] [id number] [address] 19447- 6898 Oct, [facility] [id number] [address] 83865- 2170 Sep, Type 2 diabetes mellitus without complications E11.9 ; GERD (gastroesophageal reflux disease) K21.9 ; Peripheral neuropathy G62.9 ; Hypertension I10 ; H/O hypercholesterolemia Z86.39 ; Morbid obesity E66.01 and Sciatic nerve pain M54.30 [facility] [place] [address] [place] [address] 91883- 9120 11 Sep, 2015 General medical exam Z00.00 ; Abnormal chest x-ray R93.8 ; Type 2 diabetes mellitus without complications E11.9 and GERD (gastroesophageal reflux disease) K21.9 [facility] [place] [address] [place] [address] 16939- 7090 10 Sep, 2015 General medical exam Z00.00 ; Type 2 diabetes mellitus without complications E11.9 ; GERD (gastroesophageal reflux disease) K21.9 ; Abnormal chest x-ray R93.8 ; Leg cramps R25.2 ; Dietary counseling Z71.3 ; Exercise counseling Z71.89 ; Peripheral neuropathy G62.9 ; Hypertension I10 ; H/ O hypercholesterolemia Z86.39 ; Sciatic nerve pain M54.30 and Morbid obesity E66.01 [facility] [place] [address] [place] [address] 78588- 7236 March, [place] [address] [facility] [id number] [place] [address]- 0271 Sep, IMMUNIZATIONS No Known Immunizations SOCIAL HISTORY Never Assessed REASON FOR VISIT Repository Medication PLAN OF CARE VITAL SIGNS MEDICATIONS Medication Instructions Dosage Frequency Start Date End Date Duration Status Carafate 1 GM Orally Twice a day 1 tablet on an empty stomach 12h 29 May 90 days Active Metformin HCl 850 MG Orally Twice a day 1 tablet with meals 12h 90 days Active RESULTS No Results PROCEDURES [...]
--- OUTSIDE RECORDS SUMMARY | 2019-01-25 17:59 | XMS REPORT ---
Author Author MARLENE DYKES [facility] Address [address] [place] [address] Care Team Providers Care Abstract Maker Name Role Phone MARLENE DYKES Unavailable PROBLEMS Type Condition ICD9-CM Code [id number] Code Onset Dates Condition Status SNOMED Code Problem Pancreatic lesion K86.9 Active 8252661 Problem Primary insomnia F51.01 Active 6157672 Problem Splenic artery aneurysm I72.8 Active 60779764 Problem Type 2 diabetes mellitus without complications E11.9 Active 174372219 Problem Osteoarthritis of spine with radiculopathy, cervical region M47.22 Active 935598031 Problem Hypertriglyceridemia E78.1 Active 598028946 Problem Carpal tunnel syndrome of right wrist G56.01 Active [id number] Problem Type 2 diabetes mellitus with diabetic neuropathy, without long-term current use of insulin E11.40 Active 63726719 Problem Lumbago with sciatica, right side M54.41 Active 05155431 Problem GERD (gastroesophageal reflux disease) K21.9 Active 184375515 Problem Sciatic nerve pain M54.30 Active 58319068 Problem COPD (chronic obstructive pulmonary disease) J44.9 Active 93472692 Problem Hypertension I10 Active 66169163 Problem Leg cramps R25.2 Active 304357356 ALLERGIES No Information ENCOUNTERS Encounter Location Date Diagnosis [facility], [place] [id number] [place] [address] 91537- 3320 Jul, [facility], [place] [id number] [place] [address] 36946- 9612 Jun, Primary insomnia F51.01 and Degenerative lumbar spinal stenosis M48.06 [facility], [place] [id number] [place] [address] 06450- 2361 Apr, Type 2 diabetes mellitus with diabetic neuropathy, without long-term current use of insulin E11.40 ; Primary insomnia F51.01 and Hypertension I10 [facility] [id number] [place] [address] 79199- 6069 March, Primary insomnia F51.01 [facility] [address] [id number] [address]354 March, Osteoarthritis of spine with radiculopathy, cervical region M47.22 [facility] [address] [address]- [address] Feb, Type 2 diabetes mellitus with diabetic neuropathy, without long-term current use of insulin E11.40 [facility] [id number] [place] [address] 04999- 6424 Feb, [facility] [facility] [address] 59907- [address]329 Feb, [place] [address] 99905- 9796 Feb, Actinic keratosis L57.0 and BMI 40.0-44.9, adult Z68.41 [facility] [id number] [place] [address] 50019- 5529 Feb, Type 2 diabetes mellitus without complications E11.9 [facility] [id number] [place] [address] 39954- 7388 Jan, Hypertension I10 ; BMI 40.0-44.9, adult Z68.41 ; Cervicalgia M54.2 and Carpal tunnel syndrome of right wrist G56.01 [facility] [id number] [place] [address] 51357- 5942 Jan, [place] [address] 03238- 3429 Jan, [place] [address] 24976- 4765 Jan, [place] [address] 95563- 2303 Dec, Hypertension I10 [facility], [place] [address] [address] Dec, [facility], [place] [id number] [place] [address] 05486- 1459 Nov, Degenerative lumbar spinal stenosis M48.06 and COPD ( chronic obstructive pulmonary disease) J44.9 [facility], [place] [id number] [place] [address] 84989- 5927 Nov, Onycholysis L60.1 [facility], [place] [id number] [place] [address] 07392- 9494 Nov, Type 2 diabetes mellitus with diabetic neuropathy, without long-term current use of insulin E11.40 ; COPD (chronic obstructive pulmonary disease) J44.9 ; GERD (gastroesophageal reflux disease) K21.9 ; Hypertriglyceridemia E78.1 ; Hypertension I10 ; Degenerative lumbar spinal stenosis M48.06 ; Lumbago with sciatica, right side M54.41 ; Sciatic nerve pain M54.30 and Primary insomnia F51.01 [facility] [id number] [place] [address] 70854- 9368 Oct, Hypertension I10 ; Peripheral neuropathy G62.9 ; Type 2 diabetes mellitus without complications E11.9 and COPD (chronic obstructive pulmonary disease) J44.9 [facility] [id number] [place] [address] 84984- 7672 Oct, Peripheral neuropathy G62.9 [facility] [id number] [place] [address] 91352- 4620 Sep, Peripheral neuropathy G62.9 [facility], [place] [id number] [place] [address] 05658- 4159 Aug, Peripheral neuropathy G62.9 [facility], [place] [id number] [place] [address] 48448- 4949 Jul, [facility] [facility] [id number] [place] [address] 67605- 1066 Jul, [facility] [address] [address] 4697 Jul, Type 2 diabetes mellitus without complications E11.9 ; Splenic artery aneurysm I72.8 ; Pancreatic lesion K86.9 ; Primary insomnia F51.01 ; Peripheral neuropathy G62.9 and Carpal tunnel syndrome of right wrist G56.01 [facility], [place] [id number] [place] [address] 06060- 8232 14 Jun, 2017 Type 2 diabetes mellitus without complications E11.9 and Leg cramps R25.2 [facility], [place] [id number] [place] [address] 11721- 1264 Jun, [facility], [place] [id number] [place] [address] 22634- 1965 May, Splenic artery aneurysm I72.8 ; Pancreatic lesion K86.9 ; Hypertension I10 and Urinary tract infection without hematuria, site unspecified N39.0 [facility], [place] [id number] [place] [address] 61655- 5299 May, Leg cramps R25.2 [facility], [place] [id number] [place] [address] 98441- 9055 May, [facility], [place] [id number] [place] [address] 41019- 1625 May, Type 2 diabetes mellitus without complications E11.9 and GERD (gastroesophageal reflux disease) K21.9 [facility], [place] [address] [address] 56[address] Apr, [facility], [place] [id number] [place] [address] 64015- 4245 Apr, [facility], [place] [id number] [place] [address] 65036- 8417 Apr, [facility], [place] [id number] [place] [address] 71892- 8361 Apr, [facility], [place] [id number] [place] [address] 25683- 6237 Apr, Type 2 diabetes mellitus without complications E11.9 ; GERD (gastroesophageal reflux disease) K21.9 ; Peripheral neuropathy G62.9 ; Hypertension I10 ; Sciatic nerve pain M54.30 ; Morbid obesity E66.01 ; COPD ( chronic obstructive pulmonary disease) J44.9 ; Pancreatic lesion K86.9 and Splenic artery aneurysm I72.8 [facility] [id number] [place] [address] 46616- 5923 March, [place] [address] 74997- 5873 March, H/O hypercholesterolemia Z86.39 ; Leg cramps R25.2 ; Hypertension I10 and GERD (gastroesophageal reflux disease) K21.9 [facility] [id number] [place] [address] 37595- 0755 Sep, Type 2 diabetes mellitus without complications E11.9 ; GERD (gastroesophageal reflux disease) K21.9 ; Peripheral neuropathy G62.9 ; Hypertension I10 ; Sciatic nerve pain M54.30 ; Morbid obesity E66.01 ; COPD ( chronic obstructive pulmonary disease) J44.9 ; Leg cramps R25.2 ; Other depression F32.8 ; H/O hypercholesterolemia Z86.39 and Degenerative lumbar spinal stenosis M48.06 [place] [id number] [place] [address] 64625- 6293 Aug, [facility] [facility] [id number] [place] [address] 05081- 4258 Jun, [facility] [id number] [place] [address] 01981- 6812 Jun, [place] [address] 29983- 2765 Jun, [place] [address] 89931- 7358 May, Peripheral neuropathy G62.9 ; Sciatic nerve pain M54.30 ; Morbid obesity E66.01 ; Other depression F32.8 and Lumbago with sciatica, right side M54.41 [facility] [address] 00084- 8191 Apr, [address] 8[address]- 3103 07 Apr, 2016 Pain in thoracic spine M54.6 ; Other chronic pain G89.29 ; Lumbago with sciatica, left side M54.42 ; Lumbago with sciatica, right side M54.41 ; Onycholysis L60.1 and Intractable vomiting with nausea, vomiting of unspecified type R11.[address] 99944- 7801 March, [address] 04963- 1809 March, Type 2 diabetes mellitus without complications E11.9 ; Onycholysis L60.1 and Encounter for screening colonoscopy Z12.[address] [address]- 2014 Feb, [address] 47427- 7825 Feb, Peripheral neuropathy G62.9 and Leg cramps R25.2 [facility] [address] [place] [address] 22812 -6002 Jan, Influenza A J10.1 and Body aches R52 [address] 47825- 7659 09 Dec, 2015 GERD (gastroesophageal reflux disease) K21.9 ; Peripheral neuropathy G62.9 ; Hypertension I10 ; Morbid obesity E66.01 ; Encounter for immunization Z23 ; Type 2 diabetes mellitus without complications E11.9 and COPD (chronic obstructive pulmonary disease) J44.[address] 40435- 9346 08 Dec, [address] 38226- 6743 04 Dec, 2015 Morbid obesity E66.01 [facility], [place] [address] [address]- 8230 Nov, [facility], [place] [id number] [place] [address] 64493- 4608 Nov, [facility], [place] [address] [address]- 1421 Nov, [facility], [place] [id number] [place] [address] 72826- 7642 Nov, [facility], [place] [id number] [place] [address] 35346- 2467 Oct, [facility], [place] [id number] [place] [address] 72712- 8528 Oct, [facility], [place] [id number] [place] [address] 54929- 0458 Oct, [facility], [place] [address] [place] [address] 18917- 6570 Oct, [facility], [place] [address] [address]- 7674 Sep, Type 2 diabetes mellitus without complications E11.9 ; GERD (gastroesophageal reflux disease) K21.9 ; Peripheral neuropathy G62.9 ; Hypertension I10 ; H/O hypercholesterolemia Z86.39 ; Morbid obesity E66.01 and Sciatic nerve pain M54.30 [facility], [place] [address] [address]- 8933 Sep, General medical exam Z00.00 ; Abnormal chest x-ray R93.8 ; Type 2 diabetes mellitus without complications E11.9 and GERD (gastroesophageal reflux disease) K21.9 [facility], [place] [address] [address]- 3307 10 Sep, 2015 General medical exam Z00.00 ; Type 2 diabetes mellitus without complications E11.9 ; GERD (gastroesophageal reflux disease) K21.9 ; Abnormal chest x-ray R93.8 ; Leg cramps R25.2 ; Dietary counseling Z71.3 ; Exercise counseling Z71.89 ; Peripheral neuropathy G62.9 ; Hypertension I10 ; H/ O hypercholesterolemia Z86.39 ; Sciatic nerve pain M54.30 and Morbid obesity E66.01 [facility], [place] [address] [facility] [id number] [place] [address]- [address] March, [facility], [place] [address] [facility] [id number] [place] [address]- 2865 Sep, IMMUNIZATIONS No Known Immunizations SOCIAL HISTORY Never Assessed REASON FOR VISIT Right wrist carpal tunnel--unable to afford EMG/Surgical intervention-no kota Benitez RN PLAN OF CARE Activity Details Follow Up prn Reason: VITAL SIGNS Height 69 in 2018-03-12 Blood pressure systolic 122 mmHg 2018-03-12 Blood pressure diastolic 74 mmHg 2018-03-12 MEDICATIONS Unknown Medications RESULTS No Results PROCEDURES [...]
[2019-01-25] MEDS ORDERED: ASPIRIN 81 MG CHEW (CHILDREN'S ASA) PO ONE (18:00)
[2019-01-25] MEDS ORDERED: NITROGLYCERIN 0.4 MG SL TABS BTL 25'S SL PRN ×2 (18:00→21:15)
--- OUTSIDE RECORDS SUMMARY | 2019-01-25 18:00 | XMS REPORT ---
Author Author NIIK AKINS Organization [facility] Address [address] [place] [address] Care Team Providers Care Plumbing Installer Name Role Phone NIKI AKINS Unavailable PROBLEMS Type Condition ICD9-CM Code [id number] Code Onset Dates Condition Status SNOMED Code Problem Pancreatic lesion K86.9 Active 6551329 Problem Primary insomnia F51.01 Active 6875303 Problem Splenic artery aneurysm I72.8 Active 93813700 Problem Type 2 diabetes mellitus without complications E11.9 Active 762342580 Problem Osteoarthritis of spine with radiculopathy, cervical region M47.22 Active 174250510 Problem Hypertriglyceridemia E78.1 Active 052275665 Problem Carpal tunnel syndrome of right wrist G56.01 Active 517254999015871 Problem Type 2 diabetes mellitus with diabetic neuropathy, without long-term current use of insulin E11.40 Active 25129443 Problem Lumbago with sciatica, right side M54.41 Active 12037244 Problem GERD (gastroesophageal reflux disease) K21.9 Active 804541504 Problem Sciatic nerve pain M54.30 Active 43678790 Problem COPD (chronic obstructive pulmonary disease) J44.9 Active 48771789 Problem Hypertension I10 Active 79052628 Problem Leg cramps R25.2 Active 492427523 ALLERGIES No Information ENCOUNTERS Encounter Location Date Diagnosis [facility] [id number] [place] [address] 72955- 4629 Apr, Type 2 diabetes mellitus with diabetic neuropathy, without long-term current use of insulin E11.40 ; Primary insomnia F51.01 and Hypertension I10 [facility] [id number] [place] [address] 51568- 0472 March, Primary insomnia F51.01 [facility] [id number] [address] March, Osteoarthritis of spine with radiculopathy, cervical region M47.22 [facility] [id number] [place] [address] 65671- 6347 Feb, Type 2 diabetes mellitus with diabetic neuropathy, without long-term current use of insulin E11.40 [facility] [address] [place] [id number] [place] [address] 26619- 9553 Feb, [facility] [address] [address]- [address]597 Feb, [facility] [address] [id number] [place] [address] 79834- 8613 Feb, Actinic keratosis L57.0 and BMI 40.0-44.9, adult Z68.41 [facility] [address] [place] [id number] [place] [address] 25549- 0834 Feb, Type 2 diabetes mellitus without complications E11.9 [facility] [address] [id number] [place] [address] 04698- 5256 Jan, Hypertension I10 ; BMI 40.0-44.9, adult Z68.41 ; Cervicalgia M54.2 and Carpal tunnel syndrome of right wrist G56.01 [facility] [address] [address] [id number] [place] [address] 33588- 7014 Jan, [facility] [address] [id number] [place] [address] 95556- 7566 Jan, [facility] [address] [id number] [place] [address] 68107- 4364 Jan, [facility] [address] [id number] [place] [address] 28911- 0836 Dec, Hypertension I10 [facility] [address] [address] [id number] [place] [address] 30027- 2864 Dec, [facility] [address] [address] [id number] [place] [address] 19427- 5097 Nov, Degenerative lumbar spinal stenosis M48.06 and COPD ( chronic obstructive pulmonary disease) J44.9 [facility] [id number] [place] [address] 90281- 4618 Nov, Onycholysis L60.1 [facility] [id number] [place] [address] 55554- 8566 Nov, Type 2 diabetes mellitus with diabetic neuropathy, without long-term current use of insulin E11.40 ; COPD (chronic obstructive pulmonary disease) J44.9 ; GERD (gastroesophageal reflux disease) K21.9 ; Hypertriglyceridemia E78.1 ; Hypertension I10 ; Degenerative lumbar spinal stenosis M48.06 ; Lumbago with sciatica, right side M54.41 ; Sciatic nerve pain M54.30 and Primary insomnia F51.01 [facility] [address] [address] [id number] [place] [address] 15565- 1572 Oct, Hypertension I10 ; Peripheral neuropathy G62.9 ; Type 2 diabetes mellitus without complications E11.9 and COPD (chronic obstructive pulmonary disease) J44.9 [facility] [address] [id number] [place] [address] 09618- 9863 Oct, Peripheral neuropathy G62.9 [facility] [address] 82961- 0785 Sep, Peripheral neuropathy G62.9 [facility] [address] [id number] [place] [address] 20758- 7122 Aug, Peripheral neuropathy G62.9 [facility] [address] [address] [id number] [place] [address] 26040- 1566 Jul, [facility] [address] [id number] [place] [address] 18331- 8501 Jul, [facility] [address] 15271- 6193 21 Jul, 2017 Type 2 diabetes mellitus without complications E11.9 ; Splenic artery aneurysm I72.8 ; Pancreatic lesion K86.9 ; Primary insomnia F51.01 ; Peripheral neuropathy G62.9 and Carpal tunnel syndrome of right wrist G56.01 [facility] [id number] [address] 14 Jun, 2017 Type 2 diabetes mellitus without complications E11.9 and Leg cramps R25.2 [facility] [address] [address] [id number] [place] [address] 82820- 7661 Jun, [facility] [address] [id number] [place] [address] 12543- 0677 May, Splenic artery aneurysm I72.8 ; Pancreatic lesion K86.9 ; Hypertension I10 and Urinary tract infection without hematuria, site unspecified N39.0 [facility] [id number] [address] 14 May, 2017 Leg cramps R25.2 [facility] [address] [address] [id number] [place] [address] 14304- 6103 May, [facility] [address] [id number] [place] [address] 66871- 8257 May, Type 2 diabetes mellitus without complications E11.9 and GERD (gastroesophageal reflux disease) K21.9 [facility] [id number] [address] Apr, [facility] [address] [id number] [place] [address] 46654- 4534 Apr, [facility] [id number], [place] [address] 8372 Apr, [facility] [id number] [place] [address] 5072 Apr, [facility] [id number] [place] [address] 7899 Apr, Type 2 diabetes mellitus without complications E11.9 ; GERD (gastroesophageal reflux disease) K21.9 ; Peripheral neuropathy G62.9 ; Hypertension I10 ; Sciatic nerve pain M54.30 ; Morbid obesity E66.01 ; COPD ( chronic obstructive pulmonary disease) J44.9 ; Pancreatic lesion K86.9 and Splenic artery aneurysm I72.8 [facility] [address] [id number] [place] [address] 94114- 6467 March, [facility] [address] 58503- 2080 March, H/O hypercholesterolemia Z86.39 ; Leg cramps R25.2 ; Hypertension I10 and GERD (gastroesophageal reflux disease) K21.9 [facility] [address] 78617- 7691 Sep, Type 2 diabetes mellitus without complications E11.9 ; GERD (gastroesophageal reflux disease) K21.9 ; Peripheral neuropathy G62.9 ; Hypertension I10 ; Sciatic nerve pain M54.30 ; Morbid obesity E66.01 ; COPD ( chronic obstructive pulmonary disease) J44.9 ; Leg cramps R25.2 ; Other depression F32.8 ; H/O hypercholesterolemia Z86.39 and Degenerative lumbar spinal stenosis M48.06 [facility] [address] 20836- 2565 Aug, [facility] [address] 35705- 0087 Jun, [facility] [address] 90535- 6067 Jun, [facility] [address] [id number] [place] [address] 36372- 9871 Jun, [facility] [address] [id number] [place] [address] 78782- 0845 May, Peripheral neuropathy G62.9 ; Sciatic nerve pain M54.30 ; Morbid obesity E66.01 ; Other depression F32.8 and Lumbago with sciatica, right side M54.41 [facility] [address] [address] [id number] [place] [address] 53779- 3446 Apr, [facility] [address] [address] [id number] [place] [address] 45323- 6044 07 Apr, 2016 Pain in thoracic spine M54.6 ; Other chronic pain G89.29 ; Lumbago with sciatica, left side M54.42 ; Lumbago with sciatica, right side M54.41 ; Onycholysis L60.1 and Intractable vomiting with nausea, vomiting of unspecified type R11.2 [facility] [id number] [place] [address] 06251- 1431 March, [facility] [address] 37885- 0478 March, Type 2 diabetes mellitus without complications E11.9 ; Onycholysis L60.1 and Encounter for screening colonoscopy Z12.11 [facility] [address] 32908- 1429 Feb, [facility] [address] 01344- 2857 15 Feb, 2016 Peripheral neuropathy G62.9 and Leg cramps R25.2 [facility] [address] [address] -2586 Jan, Influenza A J10.1 and Body aches R52 [facility] [address] 81642- 6340 09 Dec, 2015 GERD (gastroesophageal reflux disease) K21.9 ; Peripheral neuropathy G62.9 ; Hypertension I10 ; Morbid obesity E66.01 ; Encounter for immunization Z23 ; Type 2 diabetes mellitus without complications E11.9 and COPD (chronic obstructive pulmonary disease) J44.9 [facility] [address] [place] [id number] [place] [address] 87806- 7510 08 Dec, 2015 [facility] [address] [address] [id number] [place] [address] 56815- 6933 04 Dec, 2015 Morbid obesity E66.01 [facility] [address] 41408- 3321 Nov, [facility] [address] 91679- 8371 Nov, [facility] [address] [place] [address]- 3822 Nov, [facility] [id number] [address] Nov, [facility] [id number] [place] [address]- 0772 Oct, [facility] [address] [place] [id number] [place] [address] 00600- 4235 Oct, [facility] [address] [address] [id number] [place] [address] 30115- 7802 Oct, [facility] [address] [address] [id number] [place] [address] 62034- 0148 Oct, [facility] [address] [id number] [place] [address] 26444- 5065 Sep, Type 2 diabetes mellitus without complications E11.9 ; GERD (gastroesophageal reflux disease) K21.9 ; Peripheral neuropathy G62.9 ; Hypertension I10 ; H/O hypercholesterolemia Z86.39 ; Morbid obesity E66.01 and Sciatic nerve pain M54.30 [facility] [id number] [place] [address] 63516- 6860 11 Sep, 2015 General medical exam Z00.00 ; Abnormal chest x-ray R93.8 ; Type 2 diabetes mellitus without complications E11.9 and GERD (gastroesophageal reflux disease) K21.9 [facility] [id number] [place] [address] 75313- 6474 10 Sep, 2015 General medical exam Z00.00 ; Type 2 diabetes mellitus without complications E11.9 ; GERD (gastroesophageal reflux disease) K21.9 ; Abnormal chest x-ray R93.8 ; Leg cramps R25.2 ; Dietary counseling Z71.3 ; Exercise counseling Z71.89 ; Peripheral neuropathy G62.9 ; Hypertension I10 ; H/ O hypercholesterolemia Z86.39 ; Sciatic nerve pain M54.30 and Morbid obesity E66.01 [facility] [id number] [place] [address] 72715- 8659 March, [facility] [address] [facility] [place] [id number] [address]- 3974 Sep, IMMUNIZATIONS No Known Immunizations SOCIAL HISTORY Never Assessed REASON FOR VISIT Requests return call PLAN OF CARE VITAL SIGNS MEDICATIONS Unknown Medications RESULTS No Results PROCEDURES No Known procedures INSTRUCTIONS MEDICATIONS ADMINISTERED No Known Medications MEDICAL (GENERAL) HISTORY Type Description Date Medical History Hypertension Medical History Diabetes Medical History Sciatic nerve pain Medical History High cholesterol Medical History obesity Medical History 05/2017- colonoscopy-serrated adenoma/ hyperplastic polyp- distal rectum Surgical History hernia repair 2009 Surgical History tonsillectomy Surgical History cholecystectomy 2008 Hospitalization History Surgery(s) only Hospitalization History bladder infection May 2017
--- OUTSIDE RECORDS SUMMARY | 2019-01-25 18:00 | XMS REPORT ---
Author Author NIKI AKINS Organization [facility] Address [address] [place] [address] Care Team Providers Care Blow Torch Operator Name Role Phone NIKI AKINS Unavailable PROBLEMS Type Condition ICD9-CM Code IVP93-TF Code Onset Dates Condition Status SNOMED Code Problem Pancreatic lesion K86.9 Active 4902291 Problem Primary insomnia F51.01 Active 0782884 Problem Splenic artery aneurysm I72.8 Active 41040463 Problem Type 2 diabetes mellitus without complications E11.9 Active 992159393 Problem Osteoarthritis of spine with radiculopathy, cervical region M47.22 Active 572574372 Problem Hypertriglyceridemia E78.1 Active 541082554 Problem Carpal tunnel syndrome of right wrist G56.01 Active 309861696928919 Problem Type 2 diabetes mellitus with diabetic neuropathy, without long-term current use of insulin E11.40 Active 51692414 Problem Lumbago with sciatica, right side M54.41 Active 49690299 Problem GERD (gastroesophageal reflux disease) K21.9 Active 344508895 Problem Sciatic nerve pain M54.30 Active 73248406 Problem COPD (chronic obstructive pulmonary disease) J44.9 Active 10874906 Problem Hypertension I10 Active 82623690 Problem Leg cramps R25.2 Active 158228133 ALLERGIES No Known Allergies ENCOUNTERS Encounter Location Date Diagnosis [facility] [id number] [place] [address] 61298- 9621 Apr, Type 2 diabetes mellitus with diabetic neuropathy, without long-term current use of insulin E11.40 ; Primary insomnia F51.01 and Hypertension I10 [facility] [id number] [place] [address] 31531- 6020 March, Primary insomnia F51.01 [facility] [id number] [place] [address] 23698- 4602 March, Osteoarthritis of spine with radiculopathy, cervical region M47.22 [facility] [id number] [place] [address] 63291- 3313 Feb, Type 2 diabetes mellitus with diabetic neuropathy, without long-term current use of insulin E11.40 [facility] [id number] [place] [address] 07209- 4893 Feb, [facility] [address] 32515- 6991 Feb, [facility] [id number] [place] [address] 23026- 0522 Feb, Actinic keratosis L57.0 and BMI 40.0-44.9, adult Z68.41 [facility] [id number] [place] [address] 46667- 0621 Feb, Type 2 diabetes mellitus without complications E11.9 [facility] [address] 50238- 5822 Jan, Hypertension I10 ; BMI 40.0-44.9, adult Z68.41 ; Cervicalgia M54.2 and Carpal tunnel syndrome of right wrist G56.01 [facility] [id number] [place] [address] 78352- 3541 Jan, [facility] [id number] [place] [address] 87169- 7611 Jan, [facility] [id number] [place] [address] 06703- 6532 Jan, [facility] [id number] [place] [address] 53561- 7829 Dec, Hypertension I10 [facility] [address] 86650- 2368 Dec, [facility] [id number] [place] [address] 51505- 8000 Nov, Degenerative lumbar spinal stenosis M48.06 and COPD ( chronic obstructive pulmonary disease) J44.9 [facility] [id number] [place] [address] 28088- 5411 Nov, Onycholysis L60.1 [facility] [id number] [place] [address] 78861- 8180 Nov, Type 2 diabetes mellitus with diabetic neuropathy, without long-term current use of insulin E11.40 ; COPD (chronic obstructive pulmonary disease) J44.9 ; GERD (gastroesophageal reflux disease) K21.9 ; Hypertriglyceridemia E78.1 ; Hypertension I10 ; Degenerative lumbar spinal stenosis M48.06 ; Lumbago with sciatica, right side M54.41 ; Sciatic nerve pain M54.30 and Primary insomnia F51.01 [facility] [id number] [place] [address] 71350- 1576 Oct, Hypertension I10 ; Peripheral neuropathy G62.9 ; Type 2 diabetes mellitus without complications E11.9 and COPD (chronic obstructive pulmonary disease) J44.9 [facility] [id number] [place] [address] 23589- 0867 Oct, Peripheral neuropathy G62.9 [facility] [address] 11790- 4081 Sep, Peripheral neuropathy G62.9 [facility] [id number] [place] [address] 03535- 5473 Aug, Peripheral neuropathy G62.9 [facility] [id number] [place] [address] 43971- 3991 Jul, [facility] [address] 90737- 2396 Jul, [facility] [address] 52723- 5400 21 Jul, 2017 Type 2 diabetes mellitus without complications E11.9 ; Splenic artery aneurysm I72.8 ; Pancreatic lesion K86.9 ; Primary insomnia F51.01 ; Peripheral neuropathy G62.9 and Carpal tunnel syndrome of right wrist G56.01 [facility] [address] [address] 14 Jun, 2017 Type 2 diabetes mellitus without complications E11.9 and Leg cramps R25.2 [facility] [id number] [place] [address] 37667- 2980 Jun, [facility] [id number] [place] [address] 76352- 3428 May, Splenic artery aneurysm I72.8 ; Pancreatic lesion K86.9 ; Hypertension I10 and Urinary tract infection without hematuria, site unspecified N39.0 [facility] [id number] [address] 14 May, 2017 Leg cramps R25.2 [facility] [id number] [place] [address] 71274- 6941 May, [facility] [id number] [place] [address] 25902- 9443 May, Type 2 diabetes mellitus without complications E11.9 and GERD (gastroesophageal reflux disease) K21.9 [facility] [address] [address] 0046 Apr, [facility] [id number] [place] [address] 57367- 0375 Apr, [facility] [address] [address] 3841 Apr, [facility] [address] [place] [address] 8378 Apr, [facility] [address] [address] 4920 Apr, Type 2 diabetes mellitus without complications E11.9 ; GERD (gastroesophageal reflux disease) K21.9 ; Peripheral neuropathy G62.9 ; Hypertension I10 ; Sciatic nerve pain M54.30 ; Morbid obesity E66.01 ; COPD ( chronic obstructive pulmonary disease) J44.9 ; Pancreatic lesion K86.9 and Splenic artery aneurysm I72.8 [facility] [id number] [place] [address] 98188- 3617 March, [facility] [id number] [place] [address] 57295- 5749 March, H/O hypercholesterolemia Z86.39 ; Leg cramps R25.2 ; Hypertension I10 and GERD (gastroesophageal reflux disease) K21.9 [facility] [id number] [place] [address] 70588- 7938 Sep, Type 2 diabetes mellitus without complications E11.9 ; GERD (gastroesophageal reflux disease) K21.9 ; Peripheral neuropathy G62.9 ; Hypertension I10 ; Sciatic nerve pain M54.30 ; Morbid obesity E66.01 ; COPD ( chronic obstructive pulmonary disease) J44.9 ; Leg cramps R25.2 ; Other depression F32.8 ; H/O hypercholesterolemia Z86.39 and Degenerative lumbar spinal stenosis M48.06 [facility] [id number] [place] [address] 15333- 3190 Aug, [facility] [id number] [place] [address] 84470- 2512 Jun, [facility] [id number] [place] [address] 41007- 9535 Jun, [facility] [id number] [place] [address] 53810- 4708 Jun, [facility] [id number] [place] [address] 95213- 4896 May, Peripheral neuropathy G62.9 ; Sciatic nerve pain M54.30 ; Morbid obesity E66.01 ; Other depression F32.8 and Lumbago with sciatica, right side M54.41 [facility] [id number] [place] [address] 19562- 3134 Apr, [facility] [id number] [place] [address] 55719- 7796 07 Apr, 2016 Pain in thoracic spine M54.6 ; Other chronic pain G89.29 ; Lumbago with sciatica, left side M54.42 ; Lumbago with sciatica, right side M54.41 ; Onycholysis L60.1 and Intractable vomiting with nausea, vomiting of unspecified type R11.2 [facility] [id number] [place] [address] 10424- 8175 March, [facility] [address] 78266- 3884 March, Type 2 diabetes mellitus without complications E11.9 ; Onycholysis L60.1 and Encounter for screening colonoscopy Z12.11 [facility] [address] 34197- 3157 Feb, [facility] [address] 72429- 6039 Feb, Peripheral neuropathy G62.9 and Leg cramps R25.[address] [facility] [address] 30755 -9380 Jan, Influenza A J10.1 and Body aches R52 [place] [address] 65609- 4377 09 Dec, 2015 GERD (gastroesophageal reflux disease) K21.9 ; Peripheral neuropathy G62.9 ; Hypertension I10 ; Morbid obesity E66.01 ; Encounter for immunization Z23 ; Type 2 diabetes mellitus without complications E11.9 and COPD (chronic obstructive pulmonary disease) J44.9 [facility] [id number] [place] [address] 61488- 6097 Dec, [facility] [id number] [place] [address] 60799- 9989 Dec, Morbid obesity E66.01 [facility] [address] 31658- 1195 Nov, [facility] [address] 47766- 3927 Nov, [facility] [address] [place] [address]- 6995 Nov, [facility] [address], [place] [address]- 7223 Nov, [facility] [address] [address]- 3650 Oct, [facility] [id number] [place] [address] 72443- 2202 Oct, [facility] [id number] [place] [address] 12872- 6876 Oct, [facility] [id number] [place] [address] 60495- 1517 Oct, [facility] [address] [place] [address] 91738- 1161 Sep, Type 2 diabetes mellitus without complications E11.9 ; GERD (gastroesophageal reflux disease) K21.9 ; Peripheral neuropathy G62.9 ; Hypertension I10 ; H/O hypercholesterolemia Z86.39 ; Morbid obesity E66.01 and Sciatic nerve pain M54.30 [facility] [address] [place] [address] 02868- 7607 11 Sep, 2015 General medical exam Z00.00 ; Abnormal chest x-ray R93.8 ; Type 2 diabetes mellitus without complications E11.9 and GERD (gastroesophageal reflux disease) K21.9 [facility] [id number] [place] [address] 14325- 1184 10 Sep, 2015 General medical exam Z00.00 ; Type 2 diabetes mellitus without complications E11.9 ; GERD (gastroesophageal reflux disease) K21.9 ; Abnormal chest x-ray R93.8 ; Leg cramps R25.2 ; Dietary counseling Z71.3 ; Exercise counseling Z71.89 ; Peripheral neuropathy G62.9 ; Hypertension I10 ; H/ O hypercholesterolemia Z86.39 ; Sciatic nerve pain M54.30 and Morbid obesity E66.01 [facility] [place] [address] [address]- 1331 March, [place] [address] [facility] [id number] [place] [address]- 7309 Sep, IMMUNIZATIONS No Known Immunizations SOCIAL HISTORY Never Assessed REASON FOR VISIT right wrist Injection. DANNI Liang PLAN OF CARE Activity Details Follow Up prn Reason: Future/Pending Procedure EXC BENIGN LEISON <0.5 cm (specify location) VITAL SIGNS Height 69 in 2018-02-09 Weight 275 lbs 2018-02-09 Temperature 97.6 degrees Fahrenheit 2018-02-09 Heart Rate 104 bpm 2018-02-09 Respiratory Rate 20 2018-02-09 BMI 40.61 kg/m2 2018-02-09 Blood pressure systolic 118 mmHg 2018-02-09 Blood pressure diastolic 78 mmHg 2018-02-09 MEDICATIONS Medication Instructions Dosage Frequency Start Date End Date Duration Status Trazodone HCl 300 MG Orally Once a day 1/2 tablet at bedtime as needed 24h 30 days Active Ventolin HFA 108 (90 Base) MCG/ACT Inhalation every 4 hrs 2 puffs as needed 4h 90 days Active Trazodone HCl 50 MG Orally Once a day take 3 tablets at bedtime 24h 90 days Active Cyclobenzaprine HCl 10 mg Orally Three times a day 1 tablet as needed 8h Jan, Feb, 30 days Active ZyrTEC 10 mg Orally Once a day 1 tablet 24h 30 days Active Pravachol 20 mg Orally Once a day 2 capsules 24h 90 days Active Breo Ellipta 100-25 MCG/INH Inhalation Once a day 1 puff 24h Nov, 90 days Active Metformin HCl 850 MG Orally Twice a day 1 tablet with meals 12h 90 days Active Savella 100 mg Orally 2 times a day 1 tablet 12h 15 Feb, 2016 Nov, 90 days Active Hydrochlorothiazide 12.5 mg Orally Once a day TAKE ONE CAPSULE BY MOUTH DAILY 24h 90 days Active Acetaminophen 500 MG Orally every 6 hrs 1 capsule as needed 6h Not -Taking Diclofenac Sodium 75 MG Orally Twice a day 1 tablet 12h 90 days Active Spiriva HandiHaler 18 MCG Inhalation Once a day 1 capsule 24h Nov, 90 days Active Protonix 40 mg Orally Once a day 1 tablet 24h 10 May, 2017 90 days Active Carafate 1 GM Orally Twice a day 1 tablet on an empty stomach 12h Active Norvasc 10 mg Orally Once a day 1 tablet 24h 30 days Active Lisinopril 10 mg Orally Once a day TAKE ONE TABLET BY MOUTH DAILY 24h 90 days Active Triamcinolone Acetonide 0.1 % Externally Twice a day 1 application to affected area 12h Active Ondansetron 4 MG Orally every 8 hrs 1 tablet on the tongue and allow to dissolve 8h Apr, 30 days Active Aspirin 325 MG Orally Once a day 1 tablet 24h 90 days Active RESULTS Name Result Date Reference Range A1C (IN HOUSE) 2018-02-09 A1C IN HOUSE 5.8 4.3 - 5.6 % Previous A1c 6.0 Lot [id number] Exp date 09/2019 PATHOLOGY REPORT (TISSUE PATHOLOGY) 2018-02-09 CLINICAL INFORMATION PATHOLOGIST TISSUE, SPECIMEN A 2018-02-09 A SOURCE A GROSS DESCRIPTION A DIAGNOSIS PROCEDURES Procedure Date Ordered Result Body Site GLYCATED HEMOGLOBIN TEST February 09, 2018 EXC TR-EXT B9 ROSALINDA 0.5 < CM February 09, 2018 INSTRUCTIONS MEDICATIONS ADMINISTERED No Known Medications [...]
--- OUTSIDE RECORDS SUMMARY | 2019-01-25 18:00 | XMS REPORT ---
Author Author NIKI AKINS Organization [facility] Address [address] [place] [address] Care Team Providers Care Inventory Associate And Driver Name Role Phone NIKI AKINS Unavailable PROBLEMS Type Condition ICD9-CM Code LWN87-EG Code Onset Dates Condition Status SNOMED Code Problem Pancreatic lesion K86.9 Active 3580707 Problem Primary insomnia F51.01 Active 4459274 Problem Splenic artery aneurysm I72.8 Active 21367624 Problem Type 2 diabetes mellitus without complications E11.9 Active 381051567 Problem Osteoarthritis of spine with radiculopathy, cervical region M47.22 Active 005305437 Problem Hypertriglyceridemia E78.1 Active 557481028 Problem Carpal tunnel syndrome of right wrist G56.01 Active [id number] Problem Type 2 diabetes mellitus with diabetic neuropathy, without long-term current use of insulin E11.40 Active 26941040 Problem Lumbago with sciatica, right side M54.41 Active 59069772 Problem GERD (gastroesophageal reflux disease) K21.9 Active 894560993 Problem Sciatic nerve pain M54.30 Active 87947947 Problem COPD (chronic obstructive pulmonary disease) J44.9 Active 54870645 Problem Hypertension I10 Active 65552084 Problem Leg cramps R25.2 Active 915321816 ALLERGIES No Information ENCOUNTERS Encounter Location Date Diagnosis [facility] [id number] [place] [address] 69494- 0599 Apr, Type 2 diabetes mellitus with diabetic neuropathy, without long-term current use of insulin E11.40 ; Primary insomnia F51.01 and Hypertension I10 [facility] [address] [place] [address] 68151- 1984 March, Primary insomnia F51.01 [facility] [address] [address] March, Osteoarthritis of spine with radiculopathy, cervical region M47.22 [facility] [address] [place] [address] 89086- 3160 Feb, Type 2 diabetes mellitus with diabetic neuropathy, without long-term current use of insulin E11.40 [facility] [address] [place] [id number] [place] [address] 91795- 7765 Feb, [facility] [address] 83911- 6421 Feb, [facility] [address] [place] [id number] [place] [address] 26119- 3094 Feb, Actinic keratosis L57.0 and BMI 40.0-44.9, adult Z68.41 [facility] [address] [place] [id number] [place] [address] 87175- 9613 Feb, Type 2 diabetes mellitus without complications E11.9 [facility] [address] [place] [id number] [place] [address] 30867- 6830 Jan, Hypertension I10 ; BMI 40.0-44.9, adult Z68.41 ; Cervicalgia M54.2 and Carpal tunnel syndrome of right wrist G56.01 [facility] [address] [place] [id number] [place] [address] 00123- 7275 Jan, [facility] [address] [place] [id number] [place] [address] 93931- 2136 Jan, [facility] [address] [place] [id number] [place] [address] 54215- 4754 Jan, [facility] [address] [place] [id number] [place] [address] 10831- 1573 Dec, Hypertension I10 [facility] [address] [place] [id number] [place] [address] 50863- 4659 Dec, [facility] [address] [place] [id number] [place] [address] 80782- 7622 Nov, Degenerative lumbar spinal stenosis M48.06 and COPD ( chronic obstructive pulmonary disease) J44.9 [facility] [id number] [place] [address] 65749- 3888 Nov, Onycholysis L60.1 [facility] [id number] [place] [address] 83741- 2936 Nov, Type 2 diabetes mellitus with diabetic neuropathy, without long-term current use of insulin E11.40 ; COPD (chronic obstructive pulmonary disease) J44.9 ; GERD (gastroesophageal reflux disease) K21.9 ; Hypertriglyceridemia E78.1 ; Hypertension I10 ; Degenerative lumbar spinal stenosis M48.06 ; Lumbago with sciatica, right side M54.41 ; Sciatic nerve pain M54.30 and Primary insomnia F51.01 [facility] [address] [place] [id number] [place] [address] 78531- 4081 Oct, Hypertension I10 ; Peripheral neuropathy G62.9 ; Type 2 diabetes mellitus without complications E11.9 and COPD (chronic obstructive pulmonary disease) J44.9 [facility] [address] [place] [id number] [place] [address] 79724- 9470 Oct, Peripheral neuropathy G62.9 [facility] [address] 93293- 5842 Sep, Peripheral neuropathy G62.9 [facility] [address] [place] [id number] [place] [address] 07924- 4164 Aug, Peripheral neuropathy G62.9 [facility] [address] [place] [id number] [place] [address] 86746- 5071 Jul, [facility] [address] [place] [id number] [place] [address] 12679- 9301 Jul, [facility] [address] 86251- 0812 21 Jul, 2017 Type 2 diabetes mellitus without complications E11.9 ; Splenic artery aneurysm I72.8 ; Pancreatic lesion K86.9 ; Primary insomnia F51.01 ; Peripheral neuropathy G62.9 and Carpal tunnel syndrome of right wrist G56.01 [facility] [address] [address]- 3333 14 Jun, 2017 Type 2 diabetes mellitus without complications E11.9 and Leg cramps R25.2 [facility] [id number] [place] [address] 98561- 9221 Jun, [facility] [address] [id number] [place] [address] 51653- 6413 May, Splenic artery aneurysm I72.8 ; Pancreatic lesion K86.9 ; Hypertension I10 and Urinary tract infection without hematuria, site unspecified N39.0 [facility] [address] [address]- 4748 14 May, 2017 Leg cramps R25.2 [facility] [address] [address] [id number] [place] [address] 00443- 7718 May, [facility] [address] [place] [id number] [place] [address] 27215- 4228 May, Type 2 diabetes mellitus without complications E11.9 and GERD (gastroesophageal reflux disease) K21.9 [facility] [address] [address]- 1471 Apr, [facility] [address] [place] [id number] [place] [address] 76512- 5281 Apr, [facility] [address], [place] [address]- 7997 Apr, [facility] [address] [place] [address]- 8106 Apr, [facility] [address] [place] [address]- 1868 Apr, Type 2 diabetes mellitus without complications E11.9 ; GERD (gastroesophageal reflux disease) K21.9 ; Peripheral neuropathy G62.9 ; Hypertension I10 ; Sciatic nerve pain M54.30 ; Morbid obesity E66.01 ; COPD ( chronic obstructive pulmonary disease) J44.9 ; Pancreatic lesion K86.9 and Splenic artery aneurysm I72.8 [facility] [address] [place] [id number] [place] [address] 72522- 3173 March, [facility] [address] 50761- 0529 March, H/O hypercholesterolemia Z86.39 ; Leg cramps R25.2 ; Hypertension I10 and GERD (gastroesophageal reflux disease) K21.9 [facility] [address] 80912- 9600 Sep, Type 2 diabetes mellitus without complications E11.9 ; GERD (gastroesophageal reflux disease) K21.9 ; Peripheral neuropathy G62.9 ; Hypertension I10 ; Sciatic nerve pain M54.30 ; Morbid obesity E66.01 ; COPD ( chronic obstructive pulmonary disease) J44.9 ; Leg cramps R25.2 ; Other depression F32.8 ; H/O hypercholesterolemia Z86.39 and Degenerative lumbar spinal stenosis M48.06 [facility] [address] 29110- 4112 Aug, [facility] [address] 85865- 2087 Jun, [facility] [address] 51478- 4278 Jun, [facility] [address] [place] [id number] [place] [address] 77030- 3021 Jun, [facility] [address] [place] [id number] [place] [address] 49025- 6502 May, Peripheral neuropathy G62.9 ; Sciatic nerve pain M54.30 ; Morbid obesity E66.01 ; Other depression F32.8 and Lumbago with sciatica, right side M54.41 [facility] [address] [place] [id number] [place] [address] 13202- 6421 Apr, [facility] [address] [place] [id number] [place] [address] 94231- 6289 07 Apr, 2016 Pain in thoracic spine M54.6 ; Other chronic pain G89.29 ; Lumbago with sciatica, left side M54.42 ; Lumbago with sciatica, right side M54.41 ; Onycholysis L60.1 and Intractable vomiting with nausea, vomiting of unspecified type R11.2 [facility] [address] [address] [id number] [place] [address] 03847- 1346 March, [facility] [address] 34555- 4259 March, Type 2 diabetes mellitus without complications E11.9 ; Onycholysis L60.1 and Encounter for screening colonoscopy Z12.11 [facility] [address] 51202- 2767 Feb, [facility] [address] 16267- 3713 15 Feb, 2016 Peripheral neuropathy G62.9 and Leg cramps R25.2 [facility] [address] [address] Jan, Influenza A J10.1 and Body aches R52 [facility] [address] 68401- 9704 09 Dec, 2015 GERD (gastroesophageal reflux disease) K21.9 ; Peripheral neuropathy G62.9 ; Hypertension I10 ; Morbid obesity E66.01 ; Encounter for immunization Z23 ; Type 2 diabetes mellitus without complications E11.9 and COPD (chronic obstructive pulmonary disease) J44.9 [facility] [address] [place] [id number] [place] [address] 83832- 7411 08 Dec, 2015 [facility] [address] [place] [id number] [place] [address] 20934- 0378 04 Dec, 2015 Morbid obesity E66.01 [facility] [address] 42822- 9015 Nov, [facility] [address] 86736- 2097 Nov, [facility] [address] [place] [address]- 1788 Nov, [facility] [address] [address]- 6800 Nov, [facility] [address], [place] [address]- 0741 Oct, [facility] [address] [place] [id number] [place] [address] 34875- 8382 Oct, [facility] [address] [place] [id number] [place] [address] 44358- 0053 Oct, [facility] [address] [place] [id number] [place] [address] 51069- 7149 Oct, [facility] [address] [place] [id number] [place] [address] 22354- 2317 Sep, Type 2 diabetes mellitus without complications E11.9 ; GERD (gastroesophageal reflux disease) K21.9 ; Peripheral neuropathy G62.9 ; Hypertension I10 ; H/O hypercholesterolemia Z86.39 ; Morbid obesity E66.01 and Sciatic nerve pain M54.30 [facility] [address] [place] [address] 55766- 4492 11 Sep, 2015 General medical exam Z00.00 ; Abnormal chest x-ray R93.8 ; Type 2 diabetes mellitus without complications E11.9 and GERD (gastroesophageal reflux disease) K21.9 [facility] [address] [place] [address] 21090- 0498 10 Sep, 2015 General medical exam Z00.00 ; Type 2 diabetes mellitus without complications E11.9 ; GERD (gastroesophageal reflux disease) K21.9 ; Abnormal chest x-ray R93.8 ; Leg cramps R25.2 ; Dietary counseling Z71.3 ; Exercise counseling Z71.89 ; Peripheral neuropathy G62.9 ; Hypertension I10 ; H/ O hypercholesterolemia Z86.39 ; Sciatic nerve pain M54.30 and Morbid obesity E66.01 [facility] [address] [place] [address] 16977- 6924 March, [facility] [address] [facility] [id number] [address]- 7574 Sep, IMMUNIZATIONS No Known Immunizations SOCIAL HISTORY Never Assessed REASON FOR VISIT labs PLAN OF CARE VITAL SIGNS MEDICATIONS Unknown [...]
--- OUTSIDE RECORDS SUMMARY | 2019-01-25 18:01 | XMS REPORT ---
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 Name Role Phone CRISTELJACEJOSE Unavailable PROBLEMS Type Condition ICD9-CM Code ACW25-DN Code Onset Dates Condition Status SNOMED Code Problem Pancreatic lesion K86.9 Active 4477501 Problem Primary insomnia F51.01 Active 9044311 Problem Splenic artery aneurysm I72.8 Active 98548757 Problem Type 2 diabetes mellitus without complications E11.9 Active 131492058 Problem Osteoarthritis of spine with radiculopathy, cervical region M47.22 Active 408114688 Problem Hypertriglyceridemia E78.1 Active 511214404 Problem Carpal tunnel syndrome of right wrist G56.01 Active 893312999277364 Problem Type 2 diabetes mellitus with diabetic neuropathy, without long-term current use of insulin E11.40 Active 68439947 Problem Lumbago with sciatica, right side M54.41 Active 55626940 Problem GERD (gastroesophageal reflux disease) K21.9 Active 957355880 Problem Sciatic nerve pain M54.30 Active 53733344 Problem COPD (chronic obstructive pulmonary disease) J44.9 Active 50231231 Problem Hypertension I10 Active 28266349 Problem Leg cramps R25.2 Active 648987482 ALLERGIES No Information ENCOUNTERS Encounter Location Date Diagnosis [facility] [address] [place] [address] 84008- 5595 Apr, Type 2 diabetes mellitus with diabetic neuropathy, without long-term current use of insulin E11.40 ; Primary insomnia F51.01 and Hypertension I10 [facility] [address] [place] [address] 06673- 6957 March, Primary insomnia F51.01 [facility] [address], [place] [address]- 0853 March, Osteoarthritis of spine with radiculopathy, cervical region M47.22 [facility] [address] [place] [address] 53024- 2028 Feb, Type 2 diabetes mellitus with diabetic neuropathy, without long-term current use of insulin E11.40 [facility] [address] [place] [id number] [place] [address] 40308- 7170 Feb, [facility] [address] 44285- 9916 Feb, [facility] [address] [place] [id number] [place] [address] 28583- 2163 Feb, Actinic keratosis L57.0 and BMI 40.0-44.9, adult Z68.41 [facility] [address] [place] [id number] [place] [address] 83619- 3768 Feb, Type 2 diabetes mellitus without complications E11.9 [facility] [address] [place] [id number] [place] [address] 28633- 5436 Jan, Hypertension I10 ; BMI 40.0-44.9, adult Z68.41 ; Cervicalgia M54.2 and Carpal tunnel syndrome of right wrist G56.01 [facility] [address] [place] [id number] [place] [address] 90805- 3486 Jan, [facility] [address] [place] [id number] [place] [address] 94795- 0093 Jan, [facility] [address] [place] [id number] [place] [address] 74343- 5594 Jan, [facility] [address] [place] [id number] [place] [address] 03143- 6026 Dec, Hypertension I10 [facility] [address] [place] [id number] [place] [address] 04611- 5341 Dec, [facility] [address] [place] [id number] [place] [address] 21747- 9985 Nov, Degenerative lumbar spinal stenosis M48.06 and COPD ( chronic obstructive pulmonary disease) J44.9 [facility] [address] [place] [id number] [place] [address] 69578- 4504 Nov, Onycholysis L60.1 [facility] [address] [place] [id number] [place] [address] 72775- 6151 Nov, Type 2 diabetes mellitus with diabetic neuropathy, without long-term current use of insulin E11.40 ; COPD (chronic obstructive pulmonary disease) J44.9 ; GERD (gastroesophageal reflux disease) K21.9 ; Hypertriglyceridemia E78.1 ; Hypertension I10 ; Degenerative lumbar spinal stenosis M48.06 ; Lumbago with sciatica, right side M54.41 ; Sciatic nerve pain M54.30 and Primary insomnia F51.01 [facility] [address] [place] [id number] [place] [address] 16927- 6910 Oct, Hypertension I10 ; Peripheral neuropathy G62.9 ; Type 2 diabetes mellitus without complications E11.9 and COPD (chronic obstructive pulmonary disease) J44.9 [facility] [address] [place] [id number] [place] [address] 37462- 3477 Oct, Peripheral neuropathy G62.9 [facility] [address] 93031- 1476 Sep, Peripheral neuropathy G62.9 [facility] [address] [place] [id number] [place] [address] 13705- 4083 Aug, Peripheral neuropathy G62.9 [facility] [address] [place] [id number] [place] [address] 31918- 8932 Jul, [facility] [address] [place] [id number] [place] [address] 91384- 5269 Jul, [facility] [address] 07823- 5680 21 Jul, 2017 Type 2 diabetes mellitus without complications E11.9 ; Splenic artery aneurysm I72.8 ; Pancreatic lesion K86.9 ; Primary insomnia F51.01 ; Peripheral neuropathy G62.9 and Carpal tunnel syndrome of right wrist G56.01 [facility] [address] [place] [address]- 9026 14 Jun, 2017 Type 2 diabetes mellitus without complications E11.9 and Leg cramps R25.2 [facility] [address] [place] [id number] [place] [address] 11965- 3435 Jun, [facility] [address] [place] [id number] [place] [address] 05612- 5146 May, Splenic artery aneurysm I72.8 ; Pancreatic lesion K86.9 ; Hypertension I10 and Urinary tract infection without hematuria, site unspecified N39.0 [facility] [address] [address] [address]- 7752 14 May, 2017 Leg cramps R25.2 [facility] [address] [place] [id number] [place] [address] 62698- 8695 May, [facility] [address] [place] [id number] [place] [address] 73062- 5641 May, Type 2 diabetes mellitus without complications E11.9 and GERD (gastroesophageal reflux disease) K21.9 [facility] [address] [address]- 0249 Apr, [facility] [address] [place] [id number] [place] [address] 23879- 4399 Apr, [facility] [address] [place] [address]- 8810 Apr, [facility] [address] [place] [address]- 7214 Apr, [facility] [address] [place] [address]- 0288 Apr, Type 2 diabetes mellitus without complications E11.9 ; GERD (gastroesophageal reflux disease) K21.9 ; Peripheral neuropathy G62.9 ; Hypertension I10 ; Sciatic nerve pain M54.30 ; Morbid obesity E66.01 ; COPD ( chronic obstructive pulmonary disease) J44.9 ; Pancreatic lesion K86.9 and Splenic artery aneurysm I72.8 [facility] [address] [place] [id number] [place] [address] 31210- 1670 March, [facility] [address] 45023- 0496 March, H/O hypercholesterolemia Z86.39 ; Leg cramps R25.2 ; Hypertension I10 and GERD (gastroesophageal reflux disease) K21.9 [facility] [address] 19400- 9567 Sep, Type 2 diabetes mellitus without complications E11.9 ; GERD (gastroesophageal reflux disease) K21.9 ; Peripheral neuropathy G62.9 ; Hypertension I10 ; Sciatic nerve pain M54.30 ; Morbid obesity E66.01 ; COPD ( chronic obstructive pulmonary disease) J44.9 ; Leg cramps R25.2 ; Other depression F32.8 ; H/O hypercholesterolemia Z86.39 and Degenerative lumbar spinal stenosis M48.06 [facility] [address] 80682- 4433 Aug, [facility] [address] 03438- 0166 Jun, [facility] [address] 40008- 1734 Jun, [facility] [address] [place] [id number] [place] [address] 06348- 7473 Jun, [facility] [address] [place] [id number] [place] [address] 67595- 3198 May, Peripheral neuropathy G62.9 ; Sciatic nerve pain M54.30 ; Morbid obesity E66.01 ; Other depression F32.8 and Lumbago with sciatica, right side M54.41 [facility] [address] [place] [id number] [place] [address] 23041- 0613 Apr, [facility] [address] [place] [id number] [place] [address] 16787- 8805 07 Apr, 2016 Pain in thoracic spine M54.6 ; Other chronic pain G89.29 ; Lumbago with sciatica, left side M54.42 ; Lumbago with sciatica, right side M54.41 ; Onycholysis L60.1 and Intractable vomiting with nausea, vomiting of unspecified type R11.2 [facility] [address] [place] [id number] [place] [address] 30192- 1143 March, [facility] [address] 47827- 7659 March, Type 2 diabetes mellitus without complications E11.9 ; Onycholysis L60.1 and Encounter for screening colonoscopy Z12.11 [facility] [address] 73003- 4853 Feb, [facility] [address] 04583- 3399 15 Feb, 2016 Peripheral neuropathy G62.9 and Leg cramps R25.2 [facility] [address] 8[address]50 -8767 Jan, Influenza A J10.1 and Body aches R52 [facility] [address] 87062- 7631 09 Dec, 2015 GERD (gastroesophageal reflux disease) K21.9 ; Peripheral neuropathy G62.9 ; Hypertension I10 ; Morbid obesity E66.01 ; Encounter for immunization Z23 ; Type 2 diabetes mellitus without complications E11.9 and COPD (chronic obstructive pulmonary disease) J44.9 [facility] [address] [place] [id number] [place] [address] 50780- 1268 08 Dec, 2015 [facility] [address] [place] [id number] [place] [address] 38275- 4136 04 Dec, 2015 Morbid obesity E66.01 [facility] [address] 90580- 6026 Nov, [facility] [address] 20171- 0461 Nov, [facility] [address] [place] [address]- 2854 Nov, [facility] [address] [place] [address]- 2798 Nov, [facility] [address] [place] [address]- 3519 Oct, [facility] [address] [place] [id number] [place] [address] 16477- 6908 Oct, [facility] [address] [place] [id number] [place] [address] 87601- 3845 Oct, [facility] [address] [place] [id number] [place] [address] 30924- 8685 Oct, [facility] [address] [place] [id number] [place] [address] 78470- 5740 Sep, Type 2 diabetes mellitus without complications E11.9 ; GERD (gastroesophageal reflux disease) K21.9 ; Peripheral neuropathy G62.9 ; Hypertension I10 ; H/O hypercholesterolemia Z86.39 ; Morbid obesity E66.01 and Sciatic nerve pain M54.30 [facility] [address] [place] [address] 07532- 9474 11 Sep, 2015 General medical exam Z00.00 ; Abnormal chest x-ray R93.8 ; Type 2 diabetes mellitus without complications E11.9 and GERD (gastroesophageal reflux disease) K21.9 [facility] [address] [place] [address] 64050- 8792 10 Sep, 2015 General medical exam Z00.00 ; Type 2 diabetes mellitus without complications E11.9 ; GERD (gastroesophageal reflux disease) K21.9 ; Abnormal chest x-ray R93.8 ; Leg cramps R25.2 ; Dietary counseling Z71.3 ; Exercise counseling Z71.89 ; Peripheral neuropathy G62.9 ; Hypertension I10 ; H/ O hypercholesterolemia Z86.39 ; Sciatic nerve pain M54.30 and Morbid obesity E66.01 [facility] [address] [place] [address] 59227- 2092 March, [facility] [address] [facility] [id number] [place] [address]- 1898 Sep, IMMUNIZATIONS No Known Immunizations SOCIAL HISTORY Never Assessed REASON FOR VISIT pt question PLAN OF CARE VITAL SIGNS MEDICATIONS Unknown [...]
--- OUTSIDE RECORDS SUMMARY | 2019-01-25 18:01 | XMS REPORT ---
Author Author NIKI AKINS Organization [facility] Address [address] [place] [address] Care Team Providers Care Bore Mill Operator Name Role Phone NIKI AKINS Unavailable PROBLEMS Type Condition ICD9-CM Code LXI20-HV Code Onset Dates Condition Status SNOMED Code Problem Pancreatic lesion K86.9 Active 4054075 Problem Primary insomnia F51.01 Active 5835102 Problem Splenic artery aneurysm I72.8 Active 90655026 Problem Type 2 diabetes mellitus without complications E11.9 Active 395725081 Problem Osteoarthritis of spine with radiculopathy, cervical region M47.22 Active 160188593 Problem Hypertriglyceridemia E78.1 Active 725295819 Problem Carpal tunnel syndrome of right wrist G56.01 Active [id number] Problem Type 2 diabetes mellitus with diabetic neuropathy, without long-term current use of insulin E11.40 Active 19208414 Problem Lumbago with sciatica, right side M54.41 Active 42903119 Problem GERD (gastroesophageal reflux disease) K21.9 Active 225531187 Problem Sciatic nerve pain M54.30 Active 92990040 Problem COPD (chronic obstructive pulmonary disease) J44.9 Active 10189384 Problem Hypertension I10 Active 88532634 Problem Leg cramps R25.2 Active [id number] ALLERGIES No Information ENCOUNTERS Encounter Location Date Diagnosis [facility] [id number] [place] [address] 89700- 0283 Apr, Type 2 diabetes mellitus with diabetic neuropathy, without long-term current use of insulin E11.40 ; Primary insomnia F51.01 and Hypertension I10 [facility] [address] [place] [address] 35161- 2411 March, Primary insomnia F51.01 [facility] [address] [address] March, Osteoarthritis of spine with radiculopathy, cervical region M47.22 [facility] [address] [place] [address] 54062- 2376 Feb, Type 2 diabetes mellitus with diabetic neuropathy, without long-term current use of insulin E11.40 [facility] [address] [place] [id number] [place] [address] 45054- 7081 Feb, [facility] [address] 50443- 0590 Feb, [facility] [address] [place] [id number] [place] [address] 66545- 6884 Feb, Actinic keratosis L57.0 and BMI 40.0-44.9, adult Z68.41 [facility] [address] [place] [id number] [place] [address] 99355- 6680 Feb, Type 2 diabetes mellitus without complications E11.9 [facility] [address] [place] [id number] [place] [address] 37959- 2302 Jan, Hypertension I10 ; BMI 40.0-44.9, adult Z68.41 ; Cervicalgia M54.2 and Carpal tunnel syndrome of right wrist G56.01 [facility] [address] [place] [id number] [place] [address] 25673- 4175 Jan, [facility] [address] [place] [id number] [place] [address] 42674- 0565 Jan, [facility] [address] [place] [id number] [place] [address] 25029- 4821 Jan, [facility] [address] [place] [id number] [place] [address] 10761- 9536 Dec, Hypertension I10 [facility] [address] [place] [id number] [place] [address] 50453- 6708 Dec, [facility] [address] [place] [id number] [place] [address] 04967- 6456 Nov, Degenerative lumbar spinal stenosis M48.06 and COPD ( chronic obstructive pulmonary disease) J44.9 [facility] [address] [place] [id number] [place] [address] 65019- 6449 Nov, Onycholysis L60.1 [facility] [address] [place] [id number] [place] [address] 50186- 1185 Nov, Type 2 diabetes mellitus with diabetic neuropathy, without long-term current use of insulin E11.40 ; COPD (chronic obstructive pulmonary disease) J44.9 ; GERD (gastroesophageal reflux disease) K21.9 ; Hypertriglyceridemia E78.1 ; Hypertension I10 ; Degenerative lumbar spinal stenosis M48.06 ; Lumbago with sciatica, right side M54.41 ; Sciatic nerve pain M54.30 and Primary insomnia F51.01 [facility] [address] [place] [id number] [place] [address] 77394- 3212 Oct, Hypertension I10 ; Peripheral neuropathy G62.9 ; Type 2 diabetes mellitus without complications E11.9 and COPD (chronic obstructive pulmonary disease) J44.9 [facility] [address] [place] [id number] [place] [address] 95887- 2923 Oct, Peripheral neuropathy G62.9 [facility] [address] 19865- 0355 Sep, Peripheral neuropathy G62.9 [facility] [address] [place] [id number] [place] [address] 68044- 2357 Aug, Peripheral neuropathy G62.9 [facility] [address] [place] [id number] [place] [address] 16497- 1128 Jul, [facility] [address] [place] [id number] [place] [address] 78195- 7933 Jul, [facility] [address] 06105- 2688 21 Jul, 2017 Type 2 diabetes mellitus without complications E11.9 ; Splenic artery aneurysm I72.8 ; Pancreatic lesion K86.9 ; Primary insomnia F51.01 ; Peripheral neuropathy G62.9 and Carpal tunnel syndrome of right wrist G56.01 [facility] [address], [place] [address]- 1117 14 Jun, 2017 Type 2 diabetes mellitus without complications E11.9 and Leg cramps R25.2 [facility] [address] [place] [id number] [place] [address] 10912- 2181 Jun, [facility] [address] [place] [id number] [place] [address] 51255- 7695 May, Splenic artery aneurysm I72.8 ; Pancreatic lesion K86.9 ; Hypertension I10 and Urinary tract infection without hematuria, site unspecified N39.0 [facility] [address] [place] [address] [address]- 0401 14 May, 2017 Leg cramps R25.2 [facility] [address] [place] [id number] [place] [address] 37593- 0207 May, [facility] [address] [place] [id number] [place] [address] 48526- 5883 May, Type 2 diabetes mellitus without complications E11.9 and GERD (gastroesophageal reflux disease) K21.9 [facility] [address] [address]- 8729 Apr, [facility] [address] [place] [id number] [place] [address] 40206- 9997 Apr, [facility] [address], [place] [address]- 0338 Apr, [facility] [address], [place] [address]- 9517 Apr, [facility] [address] [address]- 8250 Apr, Type 2 diabetes mellitus without complications E11.9 ; GERD (gastroesophageal reflux disease) K21.9 ; Peripheral neuropathy G62.9 ; Hypertension I10 ; Sciatic nerve pain M54.30 ; Morbid obesity E66.01 ; COPD ( chronic obstructive pulmonary disease) J44.9 ; Pancreatic lesion K86.9 and Splenic artery aneurysm I72.8 [facility] [address] [place] [id number] [place] [address] 13468- 7787 March, [facility] [address] 05296- 9945 March, H/O hypercholesterolemia Z86.39 ; Leg cramps R25.2 ; Hypertension I10 and GERD (gastroesophageal reflux disease) K21.9 [facility] [address] 98169- 4388 Sep, Type 2 diabetes mellitus without complications E11.9 ; GERD (gastroesophageal reflux disease) K21.9 ; Peripheral neuropathy G62.9 ; Hypertension I10 ; Sciatic nerve pain M54.30 ; Morbid obesity E66.01 ; COPD ( chronic obstructive pulmonary disease) J44.9 ; Leg cramps R25.2 ; Other depression F32.8 ; H/O hypercholesterolemia Z86.39 and Degenerative lumbar spinal stenosis M48.06 [facility] [address] 41956- 2925 Aug, [facility] [address] 65617- 3357 Jun, [facility] [address] 19497- 3986 Jun, [facility] [address] [place] [id number] [place] [address] 23601- 7764 Jun, [facility] [address] [place] [id number] [place] [address] 25656- 9887 May, Peripheral neuropathy G62.9 ; Sciatic nerve pain M54.30 ; Morbid obesity E66.01 ; Other depression F32.8 and Lumbago with sciatica, right side M54.41 [facility] [address] [place] [id number] [place] [address] 98549- 1966 Apr, [facility] [address] [place] [id number] [place] [address] 13897- 0582 07 Apr, 2016 Pain in thoracic spine M54.6 ; Other chronic pain G89.29 ; Lumbago with sciatica, left side M54.42 ; Lumbago with sciatica, right side M54.41 ; Onycholysis L60.1 and Intractable vomiting with nausea, vomiting of unspecified type R11.2 [facility] [address] [place] [id number] [place] [address] 08274- 1840 March, [facility] [address] 32330- 9498 March, Type 2 diabetes mellitus without complications E11.9 ; Onycholysis L60.1 and Encounter for screening colonoscopy Z12.11 [facility] [address] 42610- 1043 Feb, [facility] [address] 31551- 6421 15 Feb, 2016 Peripheral neuropathy G62.9 and Leg cramps R25.2 [facility] [address] 25834 -7445 Jan, Influenza A J10.1 and Body aches R52 [facility] [address] 72933- 2727 09 Dec, 2015 GERD (gastroesophageal reflux disease) K21.9 ; Peripheral neuropathy G62.9 ; Hypertension I10 ; Morbid obesity E66.01 ; Encounter for immunization Z23 ; Type 2 diabetes mellitus without complications E11.9 and COPD (chronic obstructive pulmonary disease) J44.9 [facility] [address] [place] [id number] [place] [address] 39861- 8744 08 Dec, 2015 [facility] [address] [place] [id number] [place] [address] 24195- 5339 04 Dec, 2015 Morbid obesity E66.01 [facility] [address] 07596- 1142 Nov, [facility] [address] 23317- 4422 Nov, [facility] [address] [place] [address]- 8796 Nov, [facility] [address] [address]- 9130 Nov, [facility] [address], [place] [address]- 2959 Oct, [facility] [address] [place] [id number] [place] [address] 88747- 5087 Oct, [facility] [address] [place] [id number] [place] [address] 49167- 0830 Oct, [facility] [address] [place] [id number] [place] [address] 10309- 9832 Oct, [facility] [address] [place] [id number] [place] [address] 90398- 6334 Sep, Type 2 diabetes mellitus without complications E11.9 ; GERD (gastroesophageal reflux disease) K21.9 ; Peripheral neuropathy G62.9 ; Hypertension I10 ; H/O hypercholesterolemia Z86.39 ; Morbid obesity E66.01 and Sciatic nerve pain M54.30 [facility] [address] [place] [address] 77481- 3047 11 Sep, 2015 General medical exam Z00.00 ; Abnormal chest x-ray R93.8 ; Type 2 diabetes mellitus without complications E11.9 and GERD (gastroesophageal reflux disease) K21.9 [facility] [address] [place] [address] 29681- 7562 10 Sep, 2015 General medical exam Z00.00 ; Type 2 diabetes mellitus without complications E11.9 ; GERD (gastroesophageal reflux disease) K21.9 ; Abnormal chest x-ray R93.8 ; Leg cramps R25.2 ; Dietary counseling Z71.3 ; Exercise counseling Z71.89 ; Peripheral neuropathy G62.9 ; Hypertension I10 ; H/ O hypercholesterolemia Z86.39 ; Sciatic nerve pain M54.30 and Morbid obesity E66.01 [facility] [address] [place] [address] 94596- 3448 March, [facility] [address] [facility] [id number] [place] [address]- 9946 Sep, IMMUNIZATIONS No Known Immunizations SOCIAL HISTORY Never Assessed REASON FOR VISIT Repository Medication refill PLAN OF CARE VITAL SIGNS MEDICATIONS Unknown [...]
--- OUTSIDE RECORDS SUMMARY | 2019-01-25 18:01 | XMS REPORT ---
Author Author NIKI AKINS Organization [facility] Address [address] [place] [address] Care Team Providers Care Switchman Supervisor Name Role Phone NIKI AKINS Unavailable PROBLEMS Type Condition ICD9-CM Code TJY76-AI Code Onset Dates Condition Status SNOMED Code Problem Pancreatic lesion K86.9 Active 5669535 Problem Primary insomnia F51.01 Active 0361016 Problem Splenic artery aneurysm I72.8 Active 45421246 Problem Type 2 diabetes mellitus without complications E11.9 Active 979030323 Problem Osteoarthritis of spine with radiculopathy, cervical region M47.22 Active 477242262 Problem Hypertriglyceridemia E78.1 Active 787577369 Problem Carpal tunnel syndrome of right wrist G56.01 Active 244537976750013 Problem Type 2 diabetes mellitus with diabetic neuropathy, without long-term current use of insulin E11.40 Active 48787329 Problem Lumbago with sciatica, right side M54.41 Active 10878322 Problem GERD (gastroesophageal reflux disease) K21.9 Active 957498904 Problem Sciatic nerve pain M54.30 Active 33428417 Problem COPD (chronic obstructive pulmonary disease) J44.9 Active 05137279 Problem Hypertension I10 Active 06771084 Problem Leg cramps R25.2 Active 494101346 ALLERGIES No Information ENCOUNTERS Encounter Location Date Diagnosis [facility] [address] [place] [address] 25201- 4470 Apr, Type 2 diabetes mellitus with diabetic neuropathy, without long-term current use of insulin E11.40 ; Primary insomnia F51.01 and Hypertension I10 [facility] [address] [place] [address] 46938- 9107 March, Primary insomnia F51.01 [facility] [address], [place] [address]- 1890 March, Osteoarthritis of spine with radiculopathy, cervical region M47.22 [facility] [address] [place] [address] 49498- 9355 Feb, Type 2 diabetes mellitus with diabetic neuropathy, without long-term current use of insulin E11.40 [facility] [address] [place] [id number] [place] [address] 75822- 6981 Feb, [facility] [address] 02799- 7720 Feb, [facility] [address] [place] [id number] [place] [address] 21388- 7688 Feb, Actinic keratosis L57.0 and BMI 40.0-44.9, adult Z68.41 [facility] [address] [place] [id number] [place] [address] 54034- 5313 Feb, Type 2 diabetes mellitus without complications E11.9 [facility] [address] [place] [id number] [place] [address] 79746- 2492 Jan, Hypertension I10 ; BMI 40.0-44.9, adult Z68.41 ; Cervicalgia M54.2 and Carpal tunnel syndrome of right wrist G56.01 [facility] [address] [place] [id number] [place] [address] 97906- 1411 Jan, [facility] [address] [place] [id number] [place] [address] 24498- 4718 Jan, [facility] [address] [place] [id number] [place] [address] 96161- 3713 Jan, [facility] [address] [place] [id number] [place] [address] 08015- 5443 Dec, Hypertension I10 [facility] [address] [place] [id number] [place] [address] 72501- 5859 Dec, [facility] [address] [place] [id number] [place] [address] 78209- 2434 Nov, Degenerative lumbar spinal stenosis M48.06 and COPD ( chronic obstructive pulmonary disease) J44.9 [facility] [address] [place] [id number] [place] [address] 15285- 9465 Nov, Onycholysis L60.1 [facility] [address] [place] [id number] [place] [address] 06991- 8871 Nov, Type 2 diabetes mellitus with diabetic neuropathy, without long-term current use of insulin E11.40 ; COPD (chronic obstructive pulmonary disease) J44.9 ; GERD (gastroesophageal reflux disease) K21.9 ; Hypertriglyceridemia E78.1 ; Hypertension I10 ; Degenerative lumbar spinal stenosis M48.06 ; Lumbago with sciatica, right side M54.41 ; Sciatic nerve pain M54.30 and Primary insomnia F51.01 [facility] [address] [place] [id number] [place] [address] 04901- 2337 Oct, Hypertension I10 ; Peripheral neuropathy G62.9 ; Type 2 diabetes mellitus without complications E11.9 and COPD (chronic obstructive pulmonary disease) J44.9 [facility] [address] [place] [id number] [place] [address] 68288- 2575 Oct, Peripheral neuropathy G62.9 [facility] [address] 27153- 2687 Sep, Peripheral neuropathy G62.9 [facility] [address] [place] [id number] [place] [address] 50233- 7878 Aug, Peripheral neuropathy G62.9 [facility] [address] [place] [id number] [place] [address] 06205- 4350 Jul, [facility] [address] [place] [id number] [place] [address] 00035- 5118 Jul, [facility] [address] 32600- 9859 21 Jul, 2017 Type 2 diabetes mellitus without complications E11.9 ; Splenic artery aneurysm I72.8 ; Pancreatic lesion K86.9 ; Primary insomnia F51.01 ; Peripheral neuropathy G62.9 and Carpal tunnel syndrome of right wrist G56.01 [facility] [address], [place] [address]- 6201 14 Jun, 2017 Type 2 diabetes mellitus without complications E11.9 and Leg cramps R25.2 [facility] [address] [place] [id number] [place] [address] 73991- 4397 Jun, [facility] [address] [place] [id number] [place] [address] 21565- 3539 May, Splenic artery aneurysm I72.8 ; Pancreatic lesion K86.9 ; Hypertension I10 and Urinary tract infection without hematuria, site unspecified N39.0 [facility] [address] [place] [address] [address]- 0014 14 May, 2017 Leg cramps R25.2 [facility] [address] [place] [id number] [place] [address] 94257- 7093 May, [facility] [address] [place] [id number] [place] [address] 33208- 7914 May, Type 2 diabetes mellitus without complications E11.9 and GERD (gastroesophageal reflux disease) K21.9 [facility] [address], [place] [address]- 4791 Apr, [facility] [address] [place] [id number] [place] [address] 33747- 4043 Apr, [facility] [address], [place] [address]- 1252 Apr, [facility] [address], [place] [address]- 9339 Apr, [facility] [address], [place] [address]- 6225 Apr, Type 2 diabetes mellitus without complications E11.9 ; GERD (gastroesophageal reflux disease) K21.9 ; Peripheral neuropathy G62.9 ; Hypertension I10 ; Sciatic nerve pain M54.30 ; Morbid obesity E66.01 ; COPD ( chronic obstructive pulmonary disease) J44.9 ; Pancreatic lesion K86.9 and Splenic artery aneurysm I72.8 [facility] [address] [place] [id number] [place] [address] 84945- 1675 March, [facility] [address] 65396- 7868 March, H/O hypercholesterolemia Z86.39 ; Leg cramps R25.2 ; Hypertension I10 and GERD (gastroesophageal reflux disease) K21.9 [facility] [address] 82291- 5352 Sep, Type 2 diabetes mellitus without complications E11.9 ; GERD (gastroesophageal reflux disease) K21.9 ; Peripheral neuropathy G62.9 ; Hypertension I10 ; Sciatic nerve pain M54.30 ; Morbid obesity E66.01 ; COPD ( chronic obstructive pulmonary disease) J44.9 ; Leg cramps R25.2 ; Other depression F32.8 ; H/O hypercholesterolemia Z86.39 and Degenerative lumbar spinal stenosis M48.06 [facility] [address] 19825- 2902 Aug, [facility] [address] 64787- 6418 Jun, [facility] [address] 28628- 8583 Jun, [facility] [address] [place] [id number] [place] [address] 88572- 5798 Jun, [facility] [address] [place] [id number] [place] [address] 87316- 2787 May, Peripheral neuropathy G62.9 ; Sciatic nerve pain M54.30 ; Morbid obesity E66.01 ; Other depression F32.8 and Lumbago with sciatica, right side M54.41 [facility] [address] [place] [id number] [place] [address] 71311- 9911 Apr, [facility] [address] [place] [id number] [place] [address] 31366- 3650 07 Apr, 2016 Pain in thoracic spine M54.6 ; Other chronic pain G89.29 ; Lumbago with sciatica, left side M54.42 ; Lumbago with sciatica, right side M54.41 ; Onycholysis L60.1 and Intractable vomiting with nausea, vomiting of unspecified type R11.2 [facility] [address] [place] [id number] [place] [address] 87775- 6895 March, [facility] [address] 34790- 8192 March, Type 2 diabetes mellitus without complications E11.9 ; Onycholysis L60.1 and Encounter for screening colonoscopy Z12.11 [facility] [address] 32357- 2685 Feb, [facility] [address] 47897- 1361 15 Feb, 2016 Peripheral neuropathy G62.9 and Leg cramps R25.2 [facility] [address] 47081 -8089 Jan, Influenza A J10.1 and Body aches R52 [facility] [address] 15307- 0330 09 Dec, 2015 GERD (gastroesophageal reflux disease) K21.9 ; Peripheral neuropathy G62.9 ; Hypertension I10 ; Morbid obesity E66.01 ; Encounter for immunization Z23 ; Type 2 diabetes mellitus without complications E11.9 and COPD (chronic obstructive pulmonary disease) J44.9 [facility] [address] [place] [id number] [place] [address] 72502- 9730 08 Dec, 2015 [facility] [address] [place] [id number] [place] [address] 25090- 4614 04 Dec, 2015 Morbid obesity E66.01 [facility] [address] 63451- 8972 Nov, [facility] [address] 19495- 8265 Nov, [facility] [address] [place] [address]- 2491 Nov, [facility] [address], [place] [address]- 1730 Nov, [facility] [address], [place] [address]- 2839 Oct, [facility] [address] [place] [id number] [place] [address] 18851- 2291 Oct, [facility] [address] [place] [id number] [place] [address] 55372- 4476 Oct, [facility] [address] [place] [id number] [place] [address] 11774- 3674 Oct, [facility] [address] [place] [id number] [place] [address] 90840- 0657 Sep, Type 2 diabetes mellitus without complications E11.9 ; GERD (gastroesophageal reflux disease) K21.9 ; Peripheral neuropathy G62.9 ; Hypertension I10 ; H/O hypercholesterolemia Z86.39 ; Morbid obesity E66.01 and Sciatic nerve pain M54.30 [facility] [address] [place] [address] 95560- 8200 11 Sep, 2015 General medical exam Z00.00 ; Abnormal chest x-ray R93.8 ; Type 2 diabetes mellitus without complications E11.9 and GERD (gastroesophageal reflux disease) K21.9 [facility] [address] [place] [address] 63313- 7594 10 Sep, 2015 General medical exam Z00.00 ; Type 2 diabetes mellitus without complications E11.9 ; GERD (gastroesophageal reflux disease) K21.9 ; Abnormal chest x-ray R93.8 ; Leg cramps R25.2 ; Dietary counseling Z71.3 ; Exercise counseling Z71.89 ; Peripheral neuropathy G62.9 ; Hypertension I10 ; H/ O hypercholesterolemia Z86.39 ; Sciatic nerve pain M54.30 and Morbid obesity E66.01 [facility] [address] [place] [address] 48869- 2675 March, [facility] [address] [facility] [id number] [address]- 1618 Sep, IMMUNIZATIONS No Known Immunizations SOCIAL HISTORY Never Assessed REASON FOR VISIT Refill request PLAN OF CARE VITAL SIGNS MEDICATIONS Medication Instructions Dosage Frequency Start Date End Date Duration Status Carafate 1 GM Orally Twice a day 1 tablet on an empty stomach 12h Active RESULTS No Results PROCEDURES No [...]
--- OUTSIDE RECORDS SUMMARY | 2019-01-25 18:01 | XMS REPORT ---
Author Author NIKI AKINS Organization [facility] Address [address] [place] [address] Care Team Providers Care Bed Maker Name Role Phone NIKI AKINS Unavailable PROBLEMS Type Condition ICD9-CM Code ZOA47-RG Code Onset Dates Condition Status SNOMED Code Problem Pancreatic lesion K86.9 Active 7311662 Problem Primary insomnia F51.01 Active 1480386 Problem Splenic artery aneurysm I72.8 Active 21702000 Problem Type 2 diabetes mellitus without complications E11.9 Active 952490290 Problem Osteoarthritis of spine with radiculopathy, cervical region M47.22 Active 653588129 Problem Hypertriglyceridemia E78.1 Active 330449185 Problem Carpal tunnel syndrome of right wrist G56.01 Active [id number] Problem Type 2 diabetes mellitus with diabetic neuropathy, without long-term current use of insulin E11.40 Active 98844402 Problem Lumbago with sciatica, right side M54.41 Active 70616082 Problem GERD (gastroesophageal reflux disease) K21.9 Active 139357356 Problem Sciatic nerve pain M54.30 Active 53990328 Problem COPD (chronic obstructive pulmonary disease) J44.9 Active 88538432 Problem Hypertension I10 Active 80001260 Problem Leg cramps R25.2 Active 586014804 ALLERGIES No Known Allergies ENCOUNTERS Encounter Location Date Diagnosis [facility] [id number] [place] [address] 76526- 6515 Apr, Type 2 diabetes mellitus with diabetic neuropathy, without long-term current use of insulin E11.40 ; Primary insomnia F51.01 and Hypertension I10 [facility] [id number] [place] [address] 99432- 1601 March, Primary insomnia F51.01 [facility] [id number] [place] [address] 70270- 0448 March, Osteoarthritis of spine with radiculopathy, cervical region M47.22 [facility] [id number] [place] [address] 67495- 7846 Feb, Type 2 diabetes mellitus with diabetic neuropathy, without long-term current use of insulin E11.40 [facility] [id number] [place] [address] 02136- 8070 Feb, [address] 91629- 9321 Feb, [facility] [id number] [place] [address] 87986- 2262 Feb, Actinic keratosis L57.0 and BMI 40.0-44.9, adult Z68.41 [facility] [id number] [place] [address] 23630- 3544 Feb, Type 2 diabetes mellitus without complications E11.9 [place] [address] 78198- 7706 Jan, Hypertension I10 ; BMI 40.0-44.9, adult Z68.41 ; Cervicalgia M54.2 and Carpal tunnel syndrome of right wrist G56.01 [facility] [id number] [place] [address] 00760- 5351 Jan, [facility] [id number] [place] [address] 86463- 0712 Jan, [place] [place] [id number] [place] [address] 57525- 2969 Jan, [facility] [id number] [place] [address] 78620- 8765 Dec, Hypertension I10 [place] [address] 13754- 0809 Dec, [facility] [id number] [place] [address] 84355- 8617 Nov, Degenerative lumbar spinal stenosis M48.06 and COPD ( chronic obstructive pulmonary disease) J44.9 [facility] [id number] [place] [address] 83444- 9037 Nov, Onycholysis L60.1 [facility] [id number] [place] [address] 20789- 6154 Nov, Type 2 diabetes mellitus with diabetic neuropathy, without long-term current use of insulin E11.40 ; COPD (chronic obstructive pulmonary disease) J44.9 ; GERD (gastroesophageal reflux disease) K21.9 ; Hypertriglyceridemia E78.1 ; Hypertension I10 ; Degenerative lumbar spinal stenosis M48.06 ; Lumbago with sciatica, right side M54.41 ; Sciatic nerve pain M54.30 and Primary insomnia F51.01 [facility] [id number] [place] [address] 80988- 5158 Oct, Hypertension I10 ; Peripheral neuropathy G62.9 ; Type 2 diabetes mellitus without complications E11.9 and COPD (chronic obstructive pulmonary disease) J44.9 [facility] [id number] [place] [address] 48834- 6243 Oct, Peripheral neuropathy G62.9 [place] [facility] [address] 84812- 2673 Sep, Peripheral neuropathy G62.9 [facility] [id number] [place] [address] 07288- 6237 Aug, Peripheral neuropathy G62.9 [facility] [id number] [place] [address] 03671- 5499 Jul, [place] [address] 77462- 8320 Jul, [place] [address] 12094- 9674 21 Jul, 2017 Type 2 diabetes mellitus without complications E11.9 ; Splenic artery aneurysm I72.8 ; Pancreatic lesion K86.9 ; Primary insomnia F51.01 ; Peripheral neuropathy G62.9 and Carpal tunnel syndrome of right wrist G56.01 [place] [address] [address] 8185 14 Jun, 2017 Type 2 diabetes mellitus without complications E11.9 and Leg cramps R25.2 [facility] [id number] [place] [address] 61128- 0312 Jun, [facility] [id number] [place] [address] 42658- 4301 May, Splenic artery aneurysm I72.8 ; Pancreatic lesion K86.9 ; Hypertension I10 and Urinary tract infection without hematuria, site unspecified N39.0 [facility] [id number] [address]- 9150 14 May, 2017 Leg cramps R25.2 [facility] [id number] [place] [address] 91772- 2199 May, [place] [id number] [place] [address] 94215- 0244 May, Type 2 diabetes mellitus without complications E11.9 and GERD (gastroesophageal reflux disease) K21.9 [place] [address] [address]- 1697 Apr, [facility] [id number] [place] [address] 55961- 4291 Apr, [place] [address] [address] 5972 Apr, [facility] [address] [address]- 9582 Apr, [facility] [address] [address] Apr, Type 2 diabetes mellitus without complications E11.9 ; GERD (gastroesophageal reflux disease) K21.9 ; Peripheral neuropathy G62.9 ; Hypertension I10 ; Sciatic nerve pain M54.30 ; Morbid obesity E66.01 ; COPD ( chronic obstructive pulmonary disease) J44.9 ; Pancreatic lesion K86.9 and Splenic artery aneurysm I72.8 [facility] [id number] [place] [address] 18284- 3228 March, [place] [id number] [place] [address] 82977- 8593 March, H/O hypercholesterolemia Z86.39 ; Leg cramps R25.2 ; Hypertension I10 and GERD (gastroesophageal reflux disease) K21.9 [facility] [id number] [place] [address] 37707- 8725 Sep, Type 2 diabetes mellitus without complications E11.9 ; GERD (gastroesophageal reflux disease) K21.9 ; Peripheral neuropathy G62.9 ; Hypertension I10 ; Sciatic nerve pain M54.30 ; Morbid obesity E66.01 ; COPD ( chronic obstructive pulmonary disease) J44.9 ; Leg cramps R25.2 ; Other depression F32.8 ; H/O hypercholesterolemia Z86.39 and Degenerative lumbar spinal stenosis M48.06 [facility] [id number] [place] [address] 82148- 5414 Aug, [place] [id number] [place] [address] 91151- 3317 Jun, [facility] [place] [id number] [place] [address] 51346- 3206 Jun, [place] [place] [id number] [place] [address] 05470- 1317 Jun, [place] [id number] [place] [address] 61607- 7102 May, Peripheral neuropathy G62.9 ; Sciatic nerve pain M54.30 ; Morbid obesity E66.01 ; Other depression F32.8 and Lumbago with sciatica, right side M54.41 [facility] [id number] [place] [address] 58141- 4396 Apr, [place] [id number] [place] [address] 42727- 2096 07 Apr, 2016 Pain in thoracic spine M54.6 ; Other chronic pain G89.29 ; Lumbago with sciatica, left side M54.42 ; Lumbago with sciatica, right side M54.41 ; Onycholysis L60.1 and Intractable vomiting with nausea, vomiting of unspecified type R11.2 [facility] [id number] [place] [address] 35707- 8141 March, [place] [address] 17877- 5706 March, Type 2 diabetes mellitus without complications E11.9 ; Onycholysis L60.1 and Encounter for screening colonoscopy Z12.11 [place] [address] 87632- 5285 Feb, [place] [address] 23837- 4146 Feb, Peripheral neuropathy G62.9 and Leg cramps R25.2 [facility]ALK IN [facility] [address] 39884 -2849 Jan, Influenza A J10.1 and Body aches R52 [place] [address] 30203- 8210 09 Dec, 2015 GERD (gastroesophageal reflux disease) K21.9 ; Peripheral neuropathy G62.9 ; Hypertension I10 ; Morbid obesity E66.01 ; Encounter for immunization Z23 ; Type 2 diabetes mellitus without complications E11.9 and COPD (chronic obstructive pulmonary disease) J44.9 [place] [id number] [place] [address] 44016- 1508 Dec, [place] [id number] [place] [address] 96350- 7294 Dec, Morbid obesity E66.01 [place] [address] 46890- 6728 Nov, [place] [address] 01256- 9618 Nov, [place] [address] [place] [address]- 5866 Nov, [facility] [address] [address]- 3615 Nov, [facility] [address] [address]- 2907 Oct, [facility] [address] [place] [address] 28474- 9364 Oct, [facility] [id number] [place] [address] 07847- 6756 Oct, [facility] [id number] [place] [address] 32041- 3140 Oct, [facility] [id number] [place] [address] 54761- 7711 Sep, Type 2 diabetes mellitus without complications E11.9 ; GERD (gastroesophageal reflux disease) K21.9 ; Peripheral neuropathy G62.9 ; Hypertension I10 ; H/O hypercholesterolemia Z86.39 ; Morbid obesity E66.01 and Sciatic nerve pain M54.30 [place] [address] [place] [address] 92498- 8138 11 Sep, 2015 General medical exam Z00.00 ; Abnormal chest x-ray R93.8 ; Type 2 diabetes mellitus without complications E11.9 and GERD (gastroesophageal reflux disease) K21.9 [place] [id number] [place] [address] 89823- 7405 10 Sep, 2015 General medical exam Z00.00 ; Type 2 diabetes mellitus without complications E11.9 ; GERD (gastroesophageal reflux disease) K21.9 ; Abnormal chest x-ray R93.8 ; Leg cramps R25.2 ; Dietary counseling Z71.3 ; Exercise counseling Z71.89 ; Peripheral neuropathy G62.9 ; Hypertension I10 ; H/ O hypercholesterolemia Z86.39 ; Sciatic nerve pain M54.30 and Morbid obesity E66.01 [place] [address] [address]- 5599 March, [address] [place] [facility] [id number] [address]- 2121 Sep, IMMUNIZATIONS No Known Immunizations SOCIAL HISTORY Never Assessed REASON FOR VISIT Right arm and wrist pain, DANNI Barillas, Neck and head, radiating to left ear., Blood pressure issues PLAN OF CARE Activity Details Follow Up 3 Months, prn Reason: VITAL SIGNS Height 69 in 2018-02-02 Weight 276 lbs 2018-02-02 Temperature 97.7 degrees Fahrenheit 2018-02-02 Heart Rate 90 bpm 2018-02-02 Respiratory Rate 22 2018-02-02 BMI 40.75 kg/m2 2018-02-02 Blood pressure systolic 108 mmHg 2018-02-02 Blood pressure diastolic 74 mmHg 2018-02-02 MEDICATIONS Medication Instructions Dosage Frequency Start Date End Date Duration Status Aspirin 325 MG Orally Once a day 1 tablet 24h 90 days Active Hydrochlorothiazide 12.5 mg Orally Once a day TAKE ONE CAPSULE BY MOUTH DAILY 24h 90 days Active Breo Ellipta 100-25 MCG/INH Inhalation Once a day 1 puff 24h Nov, 90 days Active Spiriva HandiHaler 18 MCG Inhalation Once a day 1 capsule 24h Nov, 90 days Active Lisinopril 10 mg Orally Once a day TAKE ONE TABLET BY MOUTH DAILY 24h 90 days Active Ventolin HFA 108 (90 Base) MCG/ACT Inhalation every 4 hrs 2 puffs as needed 4h 90 days Active Diclofenac Sodium 75 MG Orally Twice a day 1 tablet 12h 90 days Active Norvasc 10 mg Orally Once a day 1 tablet 24h 30 days Active Carafate 1 GM Orally Twice a day 1 tablet on an empty stomach 12h Active ZyrTEC 10 mg Orally Once a day 1 tablet 24h 30 days Active Triamcinolone Acetonide 0.1 % Externally Twice a day 1 application to affected area 12h Active Ondansetron 4 MG Orally every 8 hrs 1 tablet on the tongue and allow to dissolve 8h Apr, 30 days Active Protonix 40 mg Orally Once a day 1 tablet 24h May, 90 days Active Acetaminophen 500 MG Orally every 6 hrs 1 capsule as needed 6h Not -Taking Savella 100 mg Orally 2 times a day 1 tablet 12h 15 Feb, 2016 Nov, 90 days Active Metformin HCl 850 MG Orally Twice a day 1 tablet with meals 12h 90 days Active Trazodone HCl 300 MG Orally Once a day 1/2 tablet at bedtime as needed 24h 30 days Active Pravachol 20 mg Orally Once a day 2 capsules 24h 90 days Active Trazodone HCl 50 MG Orally Once a day take 3 tablets at bedtime 24h 90 days Active Cyclobenzaprine HCl 10 mg Orally Three times a day 1 tablet as needed 8h Jan, Feb, 30 days Active RESULTS No Results PROCEDURES [...]
--- OUTSIDE RECORDS SUMMARY | 2019-01-25 18:02 | XMS REPORT ---
Author Author NIKI AKINS Organization [facility] Address [address] [place] [address] Care Team Providers Care Gas Transfer Operator Name Role Phone NIKI AKINS Unavailable PROBLEMS Type Condition ICD9-CM Code [id number] Code Onset Dates Condition Status SNOMED Code Problem Pancreatic lesion K86.9 Active 8278694 Problem Primary insomnia F51.01 Active 9330516 Problem Splenic artery aneurysm I72.8 Active 62885064 Problem Type 2 diabetes mellitus without complications E11.9 Active 635343975 Problem Osteoarthritis of spine with radiculopathy, cervical region M47.22 Active 330572627 Problem Hypertriglyceridemia E78.1 Active 215376850 Problem Carpal tunnel syndrome of right wrist G56.01 Active 015717512687936 Problem Type 2 diabetes mellitus with diabetic neuropathy, without long-term current use of insulin E11.40 Active 85884447 Problem Lumbago with sciatica, right side M54.41 Active 13748020 Problem GERD (gastroesophageal reflux disease) K21.9 Active 848976964 Problem Sciatic nerve pain M54.30 Active 81107877 Problem COPD (chronic obstructive pulmonary disease) J44.9 Active 00619177 Problem Hypertension I10 Active 77385432 Problem Leg cramps R25.2 Active 875822698 ALLERGIES No Information ENCOUNTERS Encounter Location Date Diagnosis [facility] [id number] [place] [address] 12246- 6737 May, [facility] [address] [address] March, Primary insomnia F51.01 [facility] [address] [place] [address] 87567- 0064 March, Osteoarthritis of spine with radiculopathy, cervical region M47.22 [facility] [address] [place] [address] 34186- 5422 Feb, Type 2 diabetes mellitus with diabetic neuropathy, without long-term current use of insulin E11.40 [facility] [id number] [place] [address] 29314- 5803 Feb, [facility] [id number] [place] [address] 80252- 4142 Feb, [place] [address] [address]- 5473 Feb, Actinic keratosis L57.0 and BMI 40.0-44.9, adult Z68.41 [place] [address] 34732- 4604 Feb, Type 2 diabetes mellitus without complications E11.9 [place] [address] 24845- 4787 Jan, Hypertension I10 ; BMI 40.0-44.9, adult Z68.41 ; Cervicalgia M54.2 and Carpal tunnel syndrome of right wrist G56.01 [facility] [id number] [place] [address] 09480- 1886 Jan, [facility] [id number] [place] [address] 08874- 2710 Jan, [facility] [id number] [place] [address] 37918- 9826 Jan, [facility] [place] [id number] [place] [address] 77428- 8372 Dec, Hypertension I10 [facility] [place] [id number] [place] [address] 11098- 6599 Dec, [place] [address] 35647- 3934 Nov, Degenerative lumbar spinal stenosis M48.06 and COPD ( chronic obstructive pulmonary disease) J44.9 [facility] [id number] [place] [address] 88647- 2454 Nov, Onycholysis L60.1 [facility] [id number] [place] [address] 90315- 5889 Nov, Type 2 diabetes mellitus with diabetic neuropathy, without long-term current use of insulin E11.40 ; COPD (chronic obstructive pulmonary disease) J44.9 ; GERD (gastroesophageal reflux disease) K21.9 ; Hypertriglyceridemia E78.1 ; Hypertension I10 ; Degenerative lumbar spinal stenosis M48.06 ; Lumbago with sciatica, right side M54.41 ; Sciatic nerve pain M54.30 and Primary insomnia F51.01 [place] [address] 59500- 7887 Oct, Hypertension I10 ; Peripheral neuropathy G62.9 ; Type 2 diabetes mellitus without complications E11.9 and COPD (chronic obstructive pulmonary disease) J44.9 [facility] [place] [id number] [place] [address] 31850- 6269 Oct, Peripheral neuropathy G62.9 [facility] [id number] [place] [address] 34809- 5936 Sep, Peripheral neuropathy G62.9 [place] [address] 84229- 0030 Aug, Peripheral neuropathy G62.9 [facility] [id number] [place] [address] 91226- 0134 Jul, [facility] [id number] [place] [address] 03715- 2426 Jul, [facility] [id number] [place] [address] 73270- 0577 Jul, Type 2 diabetes mellitus without complications E11.9 ; Splenic artery aneurysm I72.8 ; Pancreatic lesion K86.9 ; Primary insomnia F51.01 ; Peripheral neuropathy G62.9 and Carpal tunnel syndrome of right wrist G56.01 [facility] [place] [id number] [place] [address] 16014- 5242 Jun, Type 2 diabetes mellitus without complications E11.9 and Leg cramps R25.2 [facility] [address] [address] Jun, [facility] [id number] [place] [address] 67310- 6296 May, Splenic artery aneurysm I72.8 ; Pancreatic lesion K86.9 ; Hypertension I10 and Urinary tract infection without hematuria, site unspecified N39.0 [facility] [id number] [place] [address] 60198- 1686 May, Leg cramps R25.2 [facility] [id number] [place] [address] 01944- 9841 May, [facility] [id number] [place] [address] 93789- 0684 May, Type 2 diabetes mellitus without complications E11.9 and GERD (gastroesophageal reflux disease) K21.9 [facility] [id number] [address] Apr, [facility] [id number] [place] [address] 17523- 1120 Apr, [facility] [id number] [place] [address] 79242- 2972 Apr, [facility] [address] [place] [address] 0487 Apr, [facility] [address] [place] [address] 28515- 9087 Apr, Type 2 diabetes mellitus without complications E11.9 ; GERD (gastroesophageal reflux disease) K21.9 ; Peripheral neuropathy G62.9 ; Hypertension I10 ; Sciatic nerve pain M54.30 ; Morbid obesity E66.01 ; COPD ( chronic obstructive pulmonary disease) J44.9 ; Pancreatic lesion K86.9 and Splenic artery aneurysm I72.8 [facility] [address] [address] March, [place] [address] [place] [address] 7367 March, H/O hypercholesterolemia Z86.39 ; Leg cramps R25.2 ; Hypertension I10 and GERD (gastroesophageal reflux disease) K21.9 [facility] [id number] [place] [address] 67279- 1446 Sep, Type 2 diabetes mellitus without complications E11.9 ; GERD (gastroesophageal reflux disease) K21.9 ; Peripheral neuropathy G62.9 ; Hypertension I10 ; Sciatic nerve pain M54.30 ; Morbid obesity E66.01 ; COPD ( chronic obstructive pulmonary disease) J44.9 ; Leg cramps R25.2 ; Other depression F32.8 ; H/O hypercholesterolemia Z86.39 and Degenerative lumbar spinal stenosis M48.06 [place] [id number] [place] [address] 63036- 6785 Aug, [facility] [id number] [place] [address] 49978- 0880 Jun, [facility] [id number] [place] [address] 69759- 9544 Jun, [facility] [id number] [place] [address] 23822- 5232 Jun, [facility] [id number] [place] [address] 77394- 4049 May, Peripheral neuropathy G62.9 ; Sciatic nerve pain M54.30 ; Morbid obesity E66.01 ; Other depression F32.8 and Lumbago with sciatica, right side M54.41 [facility] [id number] [place] [address] 01836- 5469 Apr, [facility] [id number] [place] [address] 97907- 4729 Apr, Pain in thoracic spine M54.6 ; Other chronic pain G89.29 ; Lumbago with sciatica, left side M54.42 ; Lumbago with sciatica, right side M54.41 ; Onycholysis L60.1 and Intractable vomiting with nausea, vomiting of unspecified type R11.2 [facility] [id number] [place] [address] 05713- 4288 March, [place] [address] 93564- 6144 March, Type 2 diabetes mellitus without complications E11.9 ; Onycholysis L60.1 and Encounter for screening colonoscopy Z12.11 [facility] [address] 86620- 8097 Feb, [place] [address] 73539- 9584 Feb, Peripheral neuropathy G62.9 and Leg cramps R25.2 [facility] [address] 87252 -6203 Jan, Influenza A J10.1 and Body aches R52 [place] [address] 51027- 5897 Dec, GERD (gastroesophageal reflux disease) K21.9 ; Peripheral neuropathy G62.9 ; Hypertension I10 ; Morbid obesity E66.01 ; Encounter for immunization Z23 ; Type 2 diabetes mellitus without complications E11.9 and COPD (chronic obstructive pulmonary disease) J44.9 [place] [id number] [place] [address] 27378- 4696 Dec, [place] [address] 05369- 3250 Dec, Morbid obesity E66.01 [place] [address] 53319- 5607 Nov, [place] [address] 67785- 4650 Nov, [place] [address] 10646- 0698 Nov, [place] [address] [address]- 8569 Nov, [facility] [address] [place] [address]- 9769 Oct, [facility] [address] [place] [address]- 3407 Oct, [facility] [address] [place] [address] 91061- 7920 Oct, [place] [id number] [place] [address] 48016- 6870 Oct, [place] [id number] [place] [address] 49087- 7323 Sep, Type 2 diabetes mellitus without complications E11.9 ; GERD (gastroesophageal reflux disease) K21.9 ; Peripheral neuropathy G62.9 ; Hypertension I10 ; H/O hypercholesterolemia Z86.39 ; Morbid obesity E66.01 and Sciatic nerve pain M54.30 [place] [address] [place] [address] 66585- 6921 11 Sep, 2015 General medical exam Z00.00 ; Abnormal chest x-ray R93.8 ; Type 2 diabetes mellitus without complications E11.9 and GERD (gastroesophageal reflux disease) K21.9 [place] [address] [address]- 5713 10 Sep, 2015 General medical exam Z00.00 ; Type 2 diabetes mellitus without complications E11.9 ; GERD (gastroesophageal reflux disease) K21.9 ; Abnormal chest x-ray R93.8 ; Leg cramps R25.2 ; Dietary counseling Z71.3 ; Exercise counseling Z71.89 ; Peripheral neuropathy G62.9 ; Hypertension I10 ; H/ O hypercholesterolemia Z86.39 ; Sciatic nerve pain M54.30 and Morbid obesity E66.01 [place] [address] [place] [address]- 8846 March, [place] [address] [place] [address] 38597- 2140 Sep, IMMUNIZATIONS No Known Immunizations SOCIAL HISTORY Never Assessed REASON FOR VISIT Repository Medication PLAN OF CARE VITAL SIGNS MEDICATIONS Medication Instructions Dosage Frequency Start Date End Date Duration Status Trazodone HCl 300 MG Orally Once a day 1/2 tablet at bedtime as needed 24h 30 days Active Savella 100 mg Orally 2 times a day 1 tablet 12h 15 Feb, 2016 Nov, 30 days Active Pravachol 20mg Orally Once a day 2 capsules 24h 90 days Active Ventolin HFA 108 (90 Base) MCG/ACT Inhalation every 4 hrs 2 puffs as needed 4h Active Lisinopril 10 mg Orally Once a day TAKE ONE TABLET BY MOUTH DAILY 24h Active RESULTS No Results PROCEDURES No [...]
--- OUTSIDE RECORDS SUMMARY | 2019-01-25 18:02 | XMS REPORT ---
Author Author AKINSNIKI Tripathi Organization [facility] Address [address] [place] [address] Care Team Providers Care Portable Router Operator Name Role Phone AKINSNIKI Tripathi Unavailable PROBLEMS Type Condition ICD9-CM Code KCD30-CU Code Onset Dates Condition Status SNOMED Code Problem COPD (chronic obstructive pulmonary disease) J44.9 Active 23295257 Problem Encounter for screening colonoscopy Z12.11 Active 332286149 Problem Leg cramps R25.2 Active 607814474 Problem Primary insomnia F51.01 Active 8326480 Problem Carpal tunnel syndrome of right wrist G56.01 Active 035242297517468 Problem Other depression F32.8 Active 32734792 Problem Onycholysis L60.1 Active 43913756 Problem Splenic artery aneurysm I72.8 Active 92711036 Problem Pancreatic lesion K86.9 Active 9687660 Problem H/O hypercholesterolemia Z86.39 Active 986262523 Problem Hypertension I10 Active 27362136 Problem Type 2 diabetes mellitus without complications E11.9 Active 00700371 Problem Sciatic nerve pain M54.30 Active 14870688 Problem Peripheral neuropathy G62.9 Active 01441421 Problem GERD (gastroesophageal reflux disease) K21.9 Active 587546520 Problem Morbid obesity E66.01 Active 581076167 ALLERGIES No Information SOCIAL HISTORY Never Assessed PLAN OF CARE VITAL SIGNS MEDICATIONS Unknown Medications RESULTS No Results PROCEDURES No Known procedures IMMUNIZATIONS No Known Immunizations MEDICAL (GENERAL) HISTORY Type Description Date Medical History Hypertension Medical History Diabetes Medical History Sciatic nerve pain Medical History High cholesterol Medical History obesity Medical History 05/2017- colonoscopy-serrated adenoma/ hyperplastic polyp- distal rectum Surgical History hernia repair 2009 Surgical History tonsillectomy Surgical History cholecystectomy 2008 Hospitalization History Surgery(s) only Hospitalization History bladder infection May 2017
--- OUTSIDE RECORDS SUMMARY | 2019-01-25 18:02 | XMS REPORT ---
Author Author AKINSNIKI Tripathi Organization [facility] Address [address] [place] [address] Care Team Providers Care Timber Inspector Name Role Phone NIKI AKINS Unavailable PROBLEMS Type Condition ICD9-CM Code PVS38-UH Code Onset Dates Condition Status SNOMED Code Problem Leg cramps R25.2 Active 001197088 Problem Splenic artery aneurysm I72.8 Active 63209499 Problem Pancreatic lesion K86.9 Active 7756309 Problem Hypertension I10 Active 65689713 Problem Sciatic nerve pain M54.30 Active 48130324 Problem GERD (gastroesophageal reflux disease) K21.9 Active 604577607 Problem COPD (chronic obstructive pulmonary disease) J44.9 Active 06802785 Problem Type 2 diabetes mellitus without complications E11.9 Active 629752394 Problem Lumbago with sciatica, right side M54.41 Active 86297347 Problem Primary insomnia F51.01 Active 9227327 Problem Carpal tunnel syndrome of right wrist G56.01 Active 838473606108500 Problem Hypertriglyceridemia E78.1 Active 958235387 Problem Type 2 diabetes mellitus with diabetic neuropathy, without long-term current use of insulin E11.40 Active 38474476 ALLERGIES No Information ENCOUNTERS Encounter Location Date Diagnosis [place] [id number] [address] March, [facility] [address] [place] [address] 41485- 4220 Feb, [facility] [address] [place] [address] 57402- 5899 Feb, [facility] [address] [place] [address] 73262- 0920 Feb, Actinic keratosis L57.0 and BMI 40.0-44.9, adult Z68.41 [place] [address] [place] [id number] [place] [address] 36456- 9658 Feb, Type 2 diabetes mellitus without complications E11.9 [place] [address] [place] [address]- 9946 Jan, Hypertension I10 ; BMI 40.0-44.9, adult Z68.41 ; Cervicalgia M54.2 and Carpal tunnel syndrome of right wrist G56.01 [place] [address] 56794- 9746 Jan, [place] [address] [place] [id number] [place] [address] 87868- 9807 Jan, [place] [address] 90369- 5445 Jan, [place] [address] 52308- 2330 Dec, Hypertension I10 [place] [address] [place] [id number] [place] [address] 38976- 4884 Dec, [place] [address] [place] [id number] [place] [address] 05339- 2790 Nov, Degenerative lumbar spinal stenosis M48.06 and COPD ( chronic obstructive pulmonary disease) J44.9 [place] [address] [place] [id number] [place] [address] 13863- 2772 Nov, Onycholysis L60.1 [place] [address] [place] [id number] [place] [address] 04168- 3666 Nov, Type 2 diabetes mellitus with diabetic neuropathy, without long-term current use of insulin E11.40 ; COPD (chronic obstructive pulmonary disease) J44.9 ; GERD (gastroesophageal reflux disease) K21.9 ; Hypertriglyceridemia E78.1 ; Hypertension I10 ; Degenerative lumbar spinal stenosis M48.06 ; Lumbago with sciatica, right side M54.41 ; Sciatic nerve pain M54.30 and Primary insomnia F51.01 [place] [address] 55120- 7002 Oct, Hypertension I10 ; Peripheral neuropathy G62.9 ; Type 2 diabetes mellitus without complications E11.9 and COPD (chronic obstructive pulmonary disease) J44.9 [place] [address] [place] [id number] [place] [address] 37376- 2243 Oct, Peripheral neuropathy G62.9 [facility] [address] [place] [id number] [place] [address] 67398- 3534 Sep, Peripheral neuropathy G62.9 [facility] [address] [place] [id number] [place] [address] 60837- 0639 Aug, Peripheral neuropathy G62.9 [place] [address] [place] [id number] [place] [address] 80229- 2812 Jul, [place] [address] [place] [id number] [place] [address] 12312- 6431 Jul, [place] [address] [place] [id number] [place] [address] 20057- 7310 Jul, Type 2 diabetes mellitus without complications E11.9 ; Splenic artery aneurysm I72.8 ; Pancreatic lesion K86.9 ; Primary insomnia F51.01 ; Peripheral neuropathy G62.9 and Carpal tunnel syndrome of right wrist G56.01 [place] [address] [place] [id number] [place] [address] 39866- 2703 Jun, Type 2 diabetes mellitus without complications E11.9 and Leg cramps R25.2 [place] [address] [place] [id number] [place] [address] 93085- 7520 Jun, [place] [address] [place] [id number] [place] [address] 78023- 6023 May, Splenic artery aneurysm I72.8 ; Pancreatic lesion K86.9 ; Hypertension I10 and Urinary tract infection without hematuria, site unspecified N39.0 [place] [address] [place] [id number] [place] [address] 16590- 5091 May, Leg cramps R25.2 [place] [address] [place] [address] 3280 May, [facility] [address] [place] [address] 28594- 6522 May, Type 2 diabetes mellitus without complications E11.9 and GERD (gastroesophageal reflux disease) K21.9 [facility] [address], [place] [address] 6945 Apr, [facility] [address] [place] [id number] [place] [address] 91573- 4192 Apr, [facility] [address] [place] [id number] [place] [address] 97582- 7001 Apr, [facility] [address] [place] [id number] [place] [address] 36394- 6882 Apr, [facility] [address], [place] [address] 7900 Apr, Type 2 diabetes mellitus without complications E11.9 ; GERD (gastroesophageal reflux disease) K21.9 ; Peripheral neuropathy G62.9 ; Hypertension I10 ; Sciatic nerve pain M54.30 ; Morbid obesity E66.01 ; COPD ( chronic obstructive pulmonary disease) J44.9 ; Pancreatic lesion K86.9 and Splenic artery aneurysm I72.8 [facility] [address], [place] [address] 7509 March, [facility] [address] [place] [id number] [place] [address] 33079- 1646 March, H/O hypercholesterolemia Z86.39 ; Leg cramps R25.2 ; Hypertension I10 and GERD (gastroesophageal reflux disease) K21.9 [facility] [address], [place] [address]- 5560 Sep, Type 2 diabetes mellitus without complications E11.9 ; GERD (gastroesophageal reflux disease) K21.9 ; Peripheral neuropathy G62.9 ; Hypertension I10 ; Sciatic nerve pain M54.30 ; Morbid obesity E66.01 ; COPD ( chronic obstructive pulmonary disease) J44.9 ; Leg cramps R25.2 ; Other depression F32.8 ; H/O hypercholesterolemia Z86.39 and Degenerative lumbar spinal stenosis M48.06 [place] [address] 94764- 1945 Aug, [facility] [address] [place] [id number] [place] [address] 83507- 1408 Jun, [place] [address] 15356- 0228 Jun, [place] [address] 32636- 1081 Jun, [place] [address] 60449- 5904 May, Peripheral neuropathy G62.9 ; Sciatic nerve pain M54.30 ; Morbid obesity E66.01 ; Other depression F32.8 and Lumbago with sciatica, right side M54.41 [place] [address] 91932- 7075 Apr, [place] [address] 37458- 7807 Apr, Pain in thoracic spine M54.6 ; Other chronic pain G89.29 ; Lumbago with sciatica, left side M54.42 ; Lumbago with sciatica, right side M54.41 ; Onycholysis L60.1 and Intractable vomiting with nausea, vomiting of unspecified type R11.2 [place] [address] [place] [id number] [place] [address] 15763- 4739 March, [place] [address] [place] [id number] [place] [address] 29274- 3774 March, Type 2 diabetes mellitus without complications E11.9 ; Onycholysis L60.1 and Encounter for screening colonoscopy Z12.11 [place] [address] [place] [id number] [place] [address] 94950- 6230 Feb, [place] [address] 83408- 6564 Feb, Peripheral neuropathy G62.9 and Leg cramps R25.2 [facility] [address] [place] [id number] [place] [address] 93073 -1522 Jan, Influenza A J10.1 and Body aches R52 [facility] [address] [place] [id number] [place] [address] 43113- 0693 09 Dec, 2015 GERD (gastroesophageal reflux disease) K21.9 ; Peripheral neuropathy G62.9 ; Hypertension I10 ; Morbid obesity E66.01 ; Encounter for immunization Z23 ; Type 2 diabetes mellitus without complications E11.9 and COPD (chronic obstructive pulmonary disease) J44.9 [facility] [address] [place] [id number] [place] [address] 43877- 7039 Dec, [facility] [address] [place] [id number] [place] [address] 21160- 0724 Dec, Morbid obesity E66.01 [facility] [address] [place] [id number] [place] [address] 23233- 1246 Nov, [facility] [address] [place] [id number] [place] [address] 91364- 5645 Nov, [facility] [address] [place] [id number] [place] [address] 88492- 0453 Nov, [facility] [address] [place] [id number] [place] [address] 07529- 9223 Nov, [facility] [address] [place] [id number] [place] [address] 04212- 5169 Oct, [facility] [address] [place] [id number] [place] [address] 41107- 5054 Oct, [facility] [address] [place] [id number] [place] [address] 78953- 4509 Oct, [facility] [address] [place] [id number] [place] [address] 63819- 2643 Oct, [facility] [address] [place] [address] [address]- 7369 24 Sep, 2015 Type 2 diabetes mellitus without complications E11.9 ; GERD (gastroesophageal reflux disease) K21.9 ; Peripheral neuropathy G62.9 ; Hypertension I10 ; H/O hypercholesterolemia Z86.39 ; Morbid obesity E66.01 and Sciatic nerve pain M54.30 [place] [address] [place] [address] [place] [address] 05237- 9641 11 Sep, 2015 General medical exam Z00.00 ; Abnormal chest x-ray R93.8 ; Type 2 diabetes mellitus without complications E11.9 and GERD (gastroesophageal reflux disease) K21.9 [place] [address] [place] [id number] [place] [address] 62258- 4000 10 Sep, 2015 General medical exam Z00.00 ; Type 2 diabetes mellitus without complications E11.9 ; GERD (gastroesophageal reflux disease) K21.9 ; Abnormal chest x-ray R93.8 ; Leg cramps R25.2 ; Dietary counseling Z71.3 ; Exercise counseling Z71.89 ; Peripheral neuropathy G62.9 ; Hypertension I10 ; H/ O hypercholesterolemia Z86.39 ; Sciatic nerve pain M54.30 and Morbid obesity E66.01 [place] [address] [place] [id number] [place] [address] 02370- 0949 March, [place] [address] [place] [address] 00785- 8511 Sep, IMMUNIZATIONS No Known Immunizations SOCIAL HISTORY Never Assessed REASON FOR VISIT triage - CBowmanRN PLAN OF CARE VITAL SIGNS MEDICATIONS Unknown [...]
--- OUTSIDE RECORDS SUMMARY | 2019-01-25 18:03 | XMS REPORT ---
Author Author NIKI AKINS Organization [facility] Address [address] [place] [address] Care Team Providers Care Communications Strategist Name Role Phone NIKI AKINS Unavailable PROBLEMS Type Condition ICD9-CM Code RVZ91-HW Code Onset Dates Condition Status SNOMED Code Problem Pancreatic lesion K86.9 Active 0186393 Problem Primary insomnia F51.01 Active 1375549 Problem Splenic artery aneurysm I72.8 Active 19670122 Problem Type 2 diabetes mellitus without complications E11.9 Active 101826459 Problem Osteoarthritis of spine with radiculopathy, cervical region M47.22 Active 128508359 Problem Hypertriglyceridemia E78.1 Active 070802591 Problem Carpal tunnel syndrome of right wrist G56.01 Active 971156158985976 Problem Type 2 diabetes mellitus with diabetic neuropathy, without long-term current use of insulin E11.40 Active 73597935 Problem Lumbago with sciatica, right side M54.41 Active 20855840 Problem GERD (gastroesophageal reflux disease) K21.9 Active 635102658 Problem Sciatic nerve pain M54.30 Active 20002959 Problem COPD (chronic obstructive pulmonary disease) J44.9 Active 52882818 Problem Hypertension I10 Active 83409651 Problem Leg cramps R25.2 Active 704371050 ALLERGIES No Information ENCOUNTERS Encounter Location Date Diagnosis [facility] [address], [place] [address]- 8831 May, [facility] [address], [place] [address]- 3803 Apr, Type 2 diabetes mellitus with diabetic neuropathy, without long-term current use of insulin E11.40 ; Primary insomnia F51.01 and Hypertension I10 [facility] [address] [place] [address], [place] [address]- 7024 March, Primary insomnia F51.01 [facility] [address] [place] [id number] [place] [address] 59862- 7675 March, Osteoarthritis of spine with radiculopathy, cervical region M47.22 [place] [address] [place] [id number] [place] [address] 59851- 8695 Feb, Type 2 diabetes mellitus with diabetic neuropathy, without long-term current use of insulin E11.40 [place] [address] 77430- 0094 Feb, [place] [address] [place] [id number] [place] [address] 94896- 9222 Feb, [place] [address] 01466- 2096 Feb, Actinic keratosis L57.0 and BMI 40.0-44.9, adult Z68.41 [place] [address] 62980- 9587 Feb, Type 2 diabetes mellitus without complications E11.9 [place] [address] [place] [id number] [place] [address] 88745- 9633 Jan, Hypertension I10 ; BMI 40.0-44.9, adult Z68.41 ; Cervicalgia M54.2 and Carpal tunnel syndrome of right wrist G56.01 [place] [address] [place] [id number] [place] [address] 87028- 2511 Jan, [place] [address] [place] [id number] [place] [address] 20327- 6789 Jan, [place] [address] [place] [id number] [place] [address] 82207- 9071 Jan, [place] [address] [place] [id number] [place] [address] 87323- 5509 Dec, Hypertension I10 [place] [address] [place] [id number] [place] [address] 77099- 6791 Dec, [place] [address] [place] [address]- 0503 Nov, Degenerative lumbar spinal stenosis M48.06 and COPD ( chronic obstructive pulmonary disease) J44.9 [place] [address] [place] [id number] [place] [address] 62954- 4379 Nov, Onycholysis L60.1 [facility] [address] [place] [id number] [place] [address] 81006- 4920 Nov, Type 2 diabetes mellitus with diabetic neuropathy, without long-term current use of insulin E11.40 ; COPD (chronic obstructive pulmonary disease) J44.9 ; GERD (gastroesophageal reflux disease) K21.9 ; Hypertriglyceridemia E78.1 ; Hypertension I10 ; Degenerative lumbar spinal stenosis M48.06 ; Lumbago with sciatica, right side M54.41 ; Sciatic nerve pain M54.30 and Primary insomnia F51.01 [place] [address] [place] [id number] [place] [address] 03627- 5218 Oct, Hypertension I10 ; Peripheral neuropathy G62.9 ; Type 2 diabetes mellitus without complications E11.9 and COPD (chronic obstructive pulmonary disease) J44.9 [place] [address] [place] [id number] [place] [address] 06864- 5305 Oct, Peripheral neuropathy G62.9 [place] [address] [place] [id number] [place] [address] 53527- 7164 Sep, Peripheral neuropathy G62.9 [place] [address] [place] [id number] [place] [address] 99139- 9353 Aug, Peripheral neuropathy G62.9 [place] [address] [place] [id number] [place] [address] 29844- 1274 Jul, [place] [address] [place] [id number] [place] [address] 68435- 8974 Jul, [place] [address] [place] [id number] [place] [address] 05097- 8328 Jul, Type 2 diabetes mellitus without complications E11.9 ; Splenic artery aneurysm I72.8 ; Pancreatic lesion K86.9 ; Primary insomnia F51.01 ; Peripheral neuropathy G62.9 and Carpal tunnel syndrome of right wrist G56.01 [place] [address] [place] [id number] [place] [address] 95826- 5857 14 Jun, 2017 Type 2 diabetes mellitus without complications E11.9 and Leg cramps R25.2 [place] [address] [place] [id number] [place] [address] 94862- 0218 Jun, [place] [address] [place] [id number] [place] [address] 19346- 9106 May, Splenic artery aneurysm I72.8 ; Pancreatic lesion K86.9 ; Hypertension I10 and Urinary tract infection without hematuria, site unspecified N39.0 [place] [address] [place] [id number] [place] [address] 68509- 7077 14 May, 2017 Leg cramps R25.2 [place] [address] [place] [id number] [place] [address] 74186- 0102 May, [place] [address] [place] [id number] [place] [address] 02550- 5667 May, Type 2 diabetes mellitus without complications E11.9 and GERD (gastroesophageal reflux disease) K21.9 [place] [address] [place] [id number] [place] [address] 67640- 2069 Apr, [place] [address] [place] [id number] [place] [address] 54418- 6817 Apr, [place] [address] [place] [id number] [place] [address] 42875- 4917 Apr, [place] [address] [place] [id number] [place] [address] 27284- 8773 Apr, [facility] [address] [place] [id number] [place] [address] 01724- 0661 Apr, Type 2 diabetes mellitus without complications E11.9 ; GERD (gastroesophageal reflux disease) K21.9 ; Peripheral neuropathy G62.9 ; Hypertension I10 ; Sciatic nerve pain M54.30 ; Morbid obesity E66.01 ; COPD ( chronic obstructive pulmonary disease) J44.9 ; Pancreatic lesion K86.9 and Splenic artery aneurysm I72.8 [place] [address] [place] [id number] [place] [address] 59886- 3271 March, [place] [address] [place] [id number] [place] [address] 34606- 0591 March, H/O hypercholesterolemia Z86.39 ; Leg cramps R25.2 ; Hypertension I10 and GERD (gastroesophageal reflux disease) K21.9 [place] [address] [place] [id number] [place] [address] 11559- 8089 Sep, Type 2 diabetes mellitus without complications E11.9 ; GERD (gastroesophageal reflux disease) K21.9 ; Peripheral neuropathy G62.9 ; Hypertension I10 ; Sciatic nerve pain M54.30 ; Morbid obesity E66.01 ; COPD ( chronic obstructive pulmonary disease) J44.9 ; Leg cramps R25.2 ; Other depression F32.8 ; H/O hypercholesterolemia Z86.39 and Degenerative lumbar spinal stenosis M48.06 [place] [address] [place] [id number] [place] [address] 10445- 0984 Aug, [place] [address] 31094- 7865 Jun, [place] [address] [place] [id number] [place] [address] 69010- 9875 Jun, [place] [address] [place] [id number] [place] [address] 44135- 6088 Jun, [place] [address] [place] [id number] [place] [address] 65140- 4087 May, Peripheral neuropathy G62.9 ; Sciatic nerve pain M54.30 ; Morbid obesity E66.01 ; Other depression F32.8 and Lumbago with sciatica, right side M54.41 [place] [address] [place] [id number] [place] [address] 52893- 7263 Apr, [place] [address] 27623- 6208 07 Apr, 2016 Pain in thoracic spine M54.6 ; Other chronic pain G89.29 ; Lumbago with sciatica, left side M54.42 ; Lumbago with sciatica, right side M54.41 ; Onycholysis L60.1 and Intractable vomiting with nausea, vomiting of unspecified type R11.2 [place] [address] 08237- 6092 March, [place] [address] 40746- 0071 March, Type 2 diabetes mellitus without complications E11.9 ; Onycholysis L60.1 and Encounter for screening colonoscopy Z12.11 [place] [address] 79192- 8826 Feb, [place] [address] 44993- 6306 Feb, Peripheral neuropathy G62.9 and Leg cramps R25.2 [facility] [address] 43490 -9056 Jan, Influenza A J10.1 and Body aches R52 [place] [address] 96758- 1124 09 Dec, 2015 GERD (gastroesophageal reflux disease) K21.9 ; Peripheral neuropathy G62.9 ; Hypertension I10 ; Morbid obesity E66.01 ; Encounter for immunization Z23 ; Type 2 diabetes mellitus without complications E11.9 and COPD (chronic obstructive pulmonary disease) J44.9 [place] [address] 10223- 5705 Dec, [place] [address] 16493- 1175 04 Dec, 2015 Morbid obesity E66.01 [place] [address] 33961- 1712 Nov, [place] [address] [place] [address]- 5653 Nov, [facility] [address], [place] [address]- 6046 Nov, [facility] [address], [place] [address]- 8933 Nov, [facility] [address], [place] [address]- 2205 Oct, [facility] [address] [place] [address] 78805- 2505 Oct, [facility] [address] [place] [address] 07214- 1185 Oct, [facility] [address] [place] [address] 22348- 9416 Oct, [facility] [address] [place] [address] 33910- 0179 Sep, Type 2 diabetes mellitus without complications E11.9 ; GERD (gastroesophageal reflux disease) K21.9 ; Peripheral neuropathy G62.9 ; Hypertension I10 ; H/O hypercholesterolemia Z86.39 ; Morbid obesity E66.01 and Sciatic nerve pain M54.30 [place] [address], [place] [address]- 6269 Sep, General medical exam Z00.00 ; Abnormal chest x-ray R93.8 ; Type 2 diabetes mellitus without complications E11.9 and GERD (gastroesophageal reflux disease) K21.9 [facility] [address] [place] [address] [address]- 1359 10 Sep, 2015 General medical exam Z00.00 ; Type 2 diabetes mellitus without complications E11.9 ; GERD (gastroesophageal reflux disease) K21.9 ; Abnormal chest x-ray R93.8 ; Leg cramps R25.2 ; Dietary counseling Z71.3 ; Exercise counseling Z71.89 ; Peripheral neuropathy G62.9 ; Hypertension I10 ; H/ O hypercholesterolemia Z86.39 ; Sciatic nerve pain M54.30 and Morbid obesity E66.01 [place] [address] [facility] [id number] [place] [address]- 4408 March, [facility] [address] [facility] [id number] [place] [address]- 6587 Sep, IMMUNIZATIONS No Known Immunizations SOCIAL HISTORY Never Assessed REASON FOR VISIT Repository Medication refill PLAN OF CARE VITAL SIGNS MEDICATIONS Medication [...]
--- OUTSIDE RECORDS SUMMARY | 2019-01-25 18:03 | XMS REPORT ---
Author Author INKI AKINS Organization [facility] Address [address] [place] [address] Care Team Providers Care Endoscopy Rn Name Role Phone NIKI AKINS Unavailable PROBLEMS Type Condition ICD9-CM Code UIQ30-IH Code Onset Dates Condition Status SNOMED Code Problem Pancreatic lesion K86.9 Active 9429997 Problem Primary insomnia F51.01 Active 1117454 Problem Splenic artery aneurysm I72.8 Active 67772664 Problem Type 2 diabetes mellitus without complications E11.9 Active 996163138 Problem Osteoarthritis of spine with radiculopathy, cervical region M47.22 Active 906091913 Problem Hypertriglyceridemia E78.1 Active 426341712 Problem Carpal tunnel syndrome of right wrist G56.01 Active 806122945850961 Problem Type 2 diabetes mellitus with diabetic neuropathy, without long-term current use of insulin E11.40 Active 96096650 Problem Lumbago with sciatica, right side M54.41 Active 66529351 Problem GERD (gastroesophageal reflux disease) K21.9 Active 985946609 Problem Sciatic nerve pain M54.30 Active 35623726 Problem COPD (chronic obstructive pulmonary disease) J44.9 Active 04022976 Problem Hypertension I10 Active 61255948 Problem Leg cramps R25.2 Active 750732247 ALLERGIES No Information ENCOUNTERS Encounter Location Date Diagnosis [facility] [id number] [place] [address] 29359- 4835 March, Osteoarthritis of spine with radiculopathy, cervical region M47.22 [facility] [id number] [place] [address] 36526- 3738 Feb, Type 2 diabetes mellitus with diabetic neuropathy, without long-term current use of insulin E11.40 [facility] [address] [address] Feb, [facility] [address] 53922- 6279 Feb, [place] [address] 28191- 9495 Feb, Actinic keratosis L57.0 and BMI 40.0-44.9, adult Z68.41 [place] [address] 44214- 8824 Feb, Type 2 diabetes mellitus without complications E11.9 [place] [address] 17189- 4368 Jan, Hypertension I10 ; BMI 40.0-44.9, adult Z68.41 ; Cervicalgia M54.2 and Carpal tunnel syndrome of right wrist G56.01 [place] [address] 16931- 5498 Jan, [place] [address] 84736- 1242 Jan, [place] [address] 51791- 0889 Jan, [place] [address] 58783- 4759 Dec, Hypertension I10 [place] [address] 01730- 9783 Dec, [place] [address] 51965- 4592 Nov, Degenerative lumbar spinal stenosis M48.06 and COPD ( chronic obstructive pulmonary disease) J44.9 [place] [address] 42647- 0119 Nov, Onycholysis L60.1 [facility] [id number] [place] [address] 82252- 2865 Nov, Type 2 diabetes mellitus with diabetic neuropathy, without long-term current use of insulin E11.40 ; COPD (chronic obstructive pulmonary disease) J44.9 ; GERD (gastroesophageal reflux disease) K21.9 ; Hypertriglyceridemia E78.1 ; Hypertension I10 ; Degenerative lumbar spinal stenosis M48.06 ; Lumbago with sciatica, right side M54.41 ; Sciatic nerve pain M54.30 and Primary insomnia F51.01 [facility] [id number] [place] [address] 97554- 0296 Oct, Hypertension I10 ; Peripheral neuropathy G62.9 ; Type 2 diabetes mellitus without complications E11.9 and COPD (chronic obstructive pulmonary disease) J44.9 [facility] [address] 88735- 0334 Oct, Peripheral neuropathy G62.9 [place] [address] 35356- 0814 Sep, Peripheral neuropathy G62.9 [place] [address] 59318- 7009 Aug, Peripheral neuropathy G62.9 [facility] [address] 48596- 9382 Jul, [facility] [address] 70855- 0844 Jul, [facility] [id number] [place] [address] 93425- 2309 Jul, Type 2 diabetes mellitus without complications E11.9 ; Splenic artery aneurysm I72.8 ; Pancreatic lesion K86.9 ; Primary insomnia F51.01 ; Peripheral neuropathy G62.9 and Carpal tunnel syndrome of right wrist G56.01 [facility] [id number] [place] [address] 69201- 9975 Jun, Type 2 diabetes mellitus without complications E11.9 and Leg cramps R25.2 [facility] [id number] [place] [address] 53401- 2289 Jun, [facility] [address] 55902- 6727 May, Splenic artery aneurysm I72.8 ; Pancreatic lesion K86.9 ; Hypertension I10 and Urinary tract infection without hematuria, site unspecified N39.0 [facility] [id number] [place] [address] 79975- 4745 May, Leg cramps R25.2 [facility] [id number] [place] [address] 13259- 3160 May, [facility] [id number] [place] [address] 15377- 5453 May, Type 2 diabetes mellitus without complications E11.9 and GERD (gastroesophageal reflux disease) K21.9 [facility] [id number] [place] [address] 61883- 2709 Apr, [facility] [id number] [place] [address] 83676- 5026 Apr, [facility] [id number] [place] [address] 87709- 6015 Apr, [facility] [id number] [place] [address] 53166- 6217 Apr, [facility] [address] [place] [address] 84834- 9156 Apr, Type 2 diabetes mellitus without complications E11.9 ; GERD (gastroesophageal reflux disease) K21.9 ; Peripheral neuropathy G62.9 ; Hypertension I10 ; Sciatic nerve pain M54.30 ; Morbid obesity E66.01 ; COPD ( chronic obstructive pulmonary disease) J44.9 ; Pancreatic lesion K86.9 and Splenic artery aneurysm I72.8 [place] [address] [place] [address] 62406- 8237 March, [facility] [id number] [place] [address] 71279- 5702 March, H/O hypercholesterolemia Z86.39 ; Leg cramps R25.2 ; Hypertension I10 and GERD (gastroesophageal reflux disease) K21.9 [facility] [place] [id number] [place] [address] 81630- 3727 Sep, Type 2 diabetes mellitus without complications E11.9 ; GERD (gastroesophageal reflux disease) K21.9 ; Peripheral neuropathy G62.9 ; Hypertension I10 ; Sciatic nerve pain M54.30 ; Morbid obesity E66.01 ; COPD ( chronic obstructive pulmonary disease) J44.9 ; Leg cramps R25.2 ; Other depression F32.8 ; H/O hypercholesterolemia Z86.39 and Degenerative lumbar spinal stenosis M48.06 [place] [id number] [place] [address] 09892- 2813 Aug, [place] [id number] [place] [address] 88348- 9826 Jun, [place] [id number] [place] [address] 30480- 4182 Jun, [place] [place] [id number] [place] [address] 28142- 0865 Jun, [place] [id number] [place] [address] 39701- 4838 May, Peripheral neuropathy G62.9 ; Sciatic nerve pain M54.30 ; Morbid obesity E66.01 ; Other depression F32.8 and Lumbago with sciatica, right side M54.41 [place] [id number] [place] [address] 33335- 3294 Apr, [place] [id number] [place] [address] 82505- 5365 Apr, Pain in thoracic spine M54.6 ; Other chronic pain G89.29 ; Lumbago with sciatica, left side M54.42 ; Lumbago with sciatica, right side M54.41 ; Onycholysis L60.1 and Intractable vomiting with nausea, vomiting of unspecified type R11.2 [place] [id number] [place] [address] 66100- 9215 March, [place] [id number] [place] [address] 70902- 9728 March, Type 2 diabetes mellitus without complications E11.9 ; Onycholysis L60.1 and Encounter for screening colonoscopy Z12.11 [facility] [address] 50910- 1657 Feb, [facility] [address] 13201- 4655 15 Feb, 2016 Peripheral neuropathy G62.9 and Leg cramps R25.2 [facility] [address] 91184 -6042 Jan, Influenza A J10.1 and Body aches R52 [place] [address] 57849- 8852 09 Dec, 2015 GERD (gastroesophageal reflux disease) K21.9 ; Peripheral neuropathy G62.9 ; Hypertension I10 ; Morbid obesity E66.01 ; Encounter for immunization Z23 ; Type 2 diabetes mellitus without complications E11.9 and COPD (chronic obstructive pulmonary disease) J44.9 [place] [address] 25488- 9509 Dec, [place] [address] 84242- 5058 04 Dec, 2015 Morbid obesity E66.01 [place] [address] 90921- 4063 Nov, [place] [address] 60453- 3037 Nov, [place] [address] 70044- 1345 Nov, [place] [address] 86914- 0613 Nov, [facility] [address] 91303- 3781 Oct, [place] [address] 26952- 8510 Oct, [place] [address] [place] [address] 92348- 0683 Oct, [place] [id number] [place] [address] 00451- 7761 Oct, [place] [id number] [place] [address] 36068- 5019 Sep, Type 2 diabetes mellitus without complications E11.9 ; GERD (gastroesophageal reflux disease) K21.9 ; Peripheral neuropathy G62.9 ; Hypertension I10 ; H/O hypercholesterolemia Z86.39 ; Morbid obesity E66.01 and Sciatic nerve pain M54.30 [place] [id number] [place] [address] 30339- 9192 11 Sep, 2015 General medical exam Z00.00 ; Abnormal chest x-ray R93.8 ; Type 2 diabetes mellitus without complications E11.9 and GERD (gastroesophageal reflux disease) K21.9 [place] [address] [place] [address] 79114- 4970 10 Sep, 2015 General medical exam Z00.00 ; Type 2 diabetes mellitus without complications E11.9 ; GERD (gastroesophageal reflux disease) K21.9 ; Abnormal chest x-ray R93.8 ; Leg cramps R25.2 ; Dietary counseling Z71.3 ; Exercise counseling Z71.89 ; Peripheral neuropathy G62.9 ; Hypertension I10 ; H/ O hypercholesterolemia Z86.39 ; Sciatic nerve pain M54.30 and Morbid obesity E66.01 [place] [address] [place] [address] 92882- 0723 March, [place] [id number] [place] [address] 36196- 7383 Sep, IMMUNIZATIONS No Known Immunizations SOCIAL HISTORY Never Assessed REASON FOR VISIT MRI PLAN OF CARE VITAL SIGNS MEDICATIONS Medication Instructions Dosage Frequency Start Date End Date Duration Status Valium 5 mg Orally 30-60 minutes before MRI, may repeat x1 if needed 1 tablet Aug, 1 dose Active RESULTS No Results PROCEDURES No Known [...]
--- OUTSIDE RECORDS SUMMARY | 2019-01-25 18:04 | XMS REPORT ---
Author Author NIKI AKINS Organization [facility] Address [address] [place] [address] Care Team Providers Care Quality Lab Technician Name Role Phone NIKI AKINS Unavailable PROBLEMS Type Condition ICD9-CM Code REW32-CE Code Onset Dates Condition Status SNOMED Code Problem Pancreatic lesion K86.9 Active 5516380 Problem Primary insomnia F51.01 Active 6931258 Problem Splenic artery aneurysm I72.8 Active 09154360 Problem Type 2 diabetes mellitus without complications E11.9 Active 369071697 Problem Osteoarthritis of spine with radiculopathy, cervical region M47.22 Active 336514683 Problem Hypertriglyceridemia E78.1 Active 161986760 Problem Carpal tunnel syndrome of right wrist G56.01 Active 007915359392765 Problem Type 2 diabetes mellitus with diabetic neuropathy, without long-term current use of insulin E11.40 Active 25408076 Problem Lumbago with sciatica, right side M54.41 Active 96695919 Problem GERD (gastroesophageal reflux disease) K21.9 Active 902878376 Problem Sciatic nerve pain M54.30 Active 33628385 Problem COPD (chronic obstructive pulmonary disease) J44.9 Active 61171880 Problem Hypertension I10 Active 78242614 Problem Leg cramps R25.2 Active 219323467 ALLERGIES No Information ENCOUNTERS Encounter Location Date Diagnosis [facility] [address], [place] [address]- 2129 May, [facility] [address], [place] [address]- 1373 Apr, Type 2 diabetes mellitus with diabetic neuropathy, without long-term current use of insulin E11.40 ; Primary insomnia F51.01 and Hypertension I10 [facility] [id number], [place] [address]- 9912 March, Primary insomnia F51.01 [facility] [id number] [place] [address] 43890- 5264 March, Osteoarthritis of spine with radiculopathy, cervical region M47.22 [place] [id number] [place] [address] 06363- 9607 Feb, Type 2 diabetes mellitus with diabetic neuropathy, without long-term current use of insulin E11.40 [place] [address] 80660- 5621 Feb, [place] [id number] [place] [address] 89523- 7614 Feb, [place] [address] 36325- 4281 Feb, Actinic keratosis L57.0 and BMI 40.0-44.9, adult Z68.41 [place] [address] 97963- 5830 Feb, Type 2 diabetes mellitus without complications E11.9 [place] [id number] [place] [address] 17184- 4202 Jan, Hypertension I10 ; BMI 40.0-44.9, adult Z68.41 ; Cervicalgia M54.2 and Carpal tunnel syndrome of right wrist G56.01 [place] [id number] [place] [address] 09020- 5865 Jan, [place] [id number] [place] [address] 17215- 5462 Jan, [place] [id number] [place] [address] 39990- 9084 Jan, [place] [id number] [place] [address] 72469- 9587 Dec, Hypertension I10 [place] [id number] [place] [address] 53394- 3347 Dec, [place] [address] [place] [address]- 4183 Nov, Degenerative lumbar spinal stenosis M48.06 and COPD ( chronic obstructive pulmonary disease) J44.9 [place] [id number] [place] [address] 01099- 4686 Nov, Onycholysis L60.1 [facility] [id number] [place] [address] 89048- 6568 Nov, Type 2 diabetes mellitus with diabetic neuropathy, without long-term current use of insulin E11.40 ; COPD (chronic obstructive pulmonary disease) J44.9 ; GERD (gastroesophageal reflux disease) K21.9 ; Hypertriglyceridemia E78.1 ; Hypertension I10 ; Degenerative lumbar spinal stenosis M48.06 ; Lumbago with sciatica, right side M54.41 ; Sciatic nerve pain M54.30 and Primary insomnia F51.01 [place] [id number] [place] [address] 76820- 5178 Oct, Hypertension I10 ; Peripheral neuropathy G62.9 ; Type 2 diabetes mellitus without complications E11.9 and COPD (chronic obstructive pulmonary disease) J44.9 [place] [id number] [place] [address] 63560- 3886 Oct, Peripheral neuropathy G62.9 [place] [id number] [place] [address] 23639- 3802 Sep, Peripheral neuropathy G62.9 [place] [id number] [place] [address] 48712- 3549 Aug, Peripheral neuropathy G62.9 [place] [id number] [place] [address] 59860- 6166 Jul, [place] [id number] [place] [address] 35411- 2120 Jul, [place] [id number] [place] [address] 04529- 1694 Jul, Type 2 diabetes mellitus without complications E11.9 ; Splenic artery aneurysm I72.8 ; Pancreatic lesion K86.9 ; Primary insomnia F51.01 ; Peripheral neuropathy G62.9 and Carpal tunnel syndrome of right wrist G56.01 [place] [id number] [place] [address] 60964- 0278 14 Jun, 2017 Type 2 diabetes mellitus without complications E11.9 and Leg cramps R25.2 [place] [id number] [place] [address] 77897- 9936 Jun, [place] [id number] [place] [address] 00368- 1125 May, Splenic artery aneurysm I72.8 ; Pancreatic lesion K86.9 ; Hypertension I10 and Urinary tract infection without hematuria, site unspecified N39.0 [place] [id number] [place] [address] 92276- 8611 14 May, 2017 Leg cramps R25.2 [place] [id number] [place] [address] 47624- 0393 May, [place] [id number] [place] [address] 18597- 1394 May, Type 2 diabetes mellitus without complications E11.9 and GERD (gastroesophageal reflux disease) K21.9 [place] [id number] [place] [address] 13149- 5240 Apr, [place] [id number] [place] [address] 31864- 9789 Apr, [place] [id number] [place] [address] 48247- 3606 Apr, [place] [address] [id number] [place] [address] 97878- 6846 Apr, [facility] [id number] [place] [address] 58926- 7358 Apr, Type 2 diabetes mellitus without complications E11.9 ; GERD (gastroesophageal reflux disease) K21.9 ; Peripheral neuropathy G62.9 ; Hypertension I10 ; Sciatic nerve pain M54.30 ; Morbid obesity E66.01 ; COPD ( chronic obstructive pulmonary disease) J44.9 ; Pancreatic lesion K86.9 and Splenic artery aneurysm I72.8 [place] [id number] [place] [address] 89412- 9740 March, [place] [id number] [place] [address] 48346- 8212 March, H/O hypercholesterolemia Z86.39 ; Leg cramps R25.2 ; Hypertension I10 and GERD (gastroesophageal reflux disease) K21.9 [place] [id number] [place] [address] 68485- 8937 Sep, Type 2 diabetes mellitus without complications E11.9 ; GERD (gastroesophageal reflux disease) K21.9 ; Peripheral neuropathy G62.9 ; Hypertension I10 ; Sciatic nerve pain M54.30 ; Morbid obesity E66.01 ; COPD ( chronic obstructive pulmonary disease) J44.9 ; Leg cramps R25.2 ; Other depression F32.8 ; H/O hypercholesterolemia Z86.39 and Degenerative lumbar spinal stenosis M48.06 [place] [id number] [place] [address] 11378- 8750 Aug, [place] [address] 19340- 8871 Jun, [place] [id number] [place] [address] 13059- 6926 Jun, [place] [address] [id number] [place] [address] 49195- 6453 Jun, [place] [id number] [place] [address] 58854- 4563 May, Peripheral neuropathy G62.9 ; Sciatic nerve pain M54.30 ; Morbid obesity E66.01 ; Other depression F32.8 and Lumbago with sciatica, right side M54.41 [place] [id number] [place] [address] 48712- 2612 Apr, [place] [address] 44453- 8553 07 Apr, 2016 Pain in thoracic spine M54.6 ; Other chronic pain G89.29 ; Lumbago with sciatica, left side M54.42 ; Lumbago with sciatica, right side M54.41 ; Onycholysis L60.1 and Intractable vomiting with nausea, vomiting of unspecified type R11.2 [place] [address] 96165- 1228 March, [place] [address] 92717- 0650 March, Type 2 diabetes mellitus without complications E11.9 ; Onycholysis L60.1 and Encounter for screening colonoscopy Z12.11 [place] [address] 36728- 5699 Feb, [place] [address] 26258- 1451 Feb, Peripheral neuropathy G62.9 and Leg cramps R25.2 [facility] [address] 36988 -4715 Jan, Influenza A J10.1 and Body aches R52 [place] [address] 23050- 7851 09 Dec, 2015 GERD (gastroesophageal reflux disease) K21.9 ; Peripheral neuropathy G62.9 ; Hypertension I10 ; Morbid obesity E66.01 ; Encounter for immunization Z23 ; Type 2 diabetes mellitus without complications E11.9 and COPD (chronic obstructive pulmonary disease) J44.9 [place] [address] 81050- 0023 Dec, [place] [address] 51709- 9237 04 Dec, 2015 Morbid obesity E66.01 [place] [address] 24964- 1291 Nov, [place] [address] [place] [address]- 9727 Nov, [facility] [address], [place] [address]- 1068 Nov, [facility] [address] [address]- 4030 Nov, [facility] [address] [address]- 2344 Oct, [facility] [address] [place] [address] 34812- 8053 Oct, [facility] [address] [place] [address] 64126- 2367 Oct, [facility] [address] [place] [address] 23139- 8352 Oct, [facility] [address] [place] [address] 37591- 7923 Sep, Type 2 diabetes mellitus without complications E11.9 ; GERD (gastroesophageal reflux disease) K21.9 ; Peripheral neuropathy G62.9 ; Hypertension I10 ; H/O hypercholesterolemia Z86.39 ; Morbid obesity E66.01 and Sciatic nerve pain M54.30 [place] [address], [place] [address]- 0866 Sep, General medical exam Z00.00 ; Abnormal chest x-ray R93.8 ; Type 2 diabetes mellitus without complications E11.9 and GERD (gastroesophageal reflux disease) K21.9 [facility] [id number] [address]- 5566 10 Sep, 2015 General medical exam Z00.00 ; Type 2 diabetes mellitus without complications E11.9 ; GERD (gastroesophageal reflux disease) K21.9 ; Abnormal chest x-ray R93.8 ; Leg cramps R25.2 ; Dietary counseling Z71.3 ; Exercise counseling Z71.89 ; Peripheral neuropathy G62.9 ; Hypertension I10 ; H/ O hypercholesterolemia Z86.39 ; Sciatic nerve pain M54.30 and Morbid obesity E66.01 [place] [address] [facility] [id number] [address]- 1170 March, [facility] [address] [facility] [id number] [address]- 5302 Sep, IMMUNIZATIONS No Known Immunizations SOCIAL HISTORY Never Assessed REASON FOR VISIT PALS PLAN OF CARE VITAL SIGNS MEDICATIONS Medication Instructions Dosage Frequency Start Date End Date Duration Status Ventolin HFA 108 (90 Base) MCG/ACT Inhalation every 4 hrs 2 puffs as needed 4h 90 days Active Savella 100 mg Orally 2 times a day 1 tablet 12h 15 Feb, 2016 Nov, 90 days Active Spiriva HandiHaler 18 MCG Inhalation Once a day 1 capsule 24h Nov, 90 days Active Breo Ellipta 100-25 MCG/INH Inhalation Once a day 1 puff 24h Nov, 90 days Active RESULTS No Results PROCEDURES [...]
--- OUTSIDE RECORDS SUMMARY | 2019-01-25 18:04 | XMS REPORT ---
Author Author NIKI AKINS Organization [facility] Address [address] [place] [address] Care Team Providers Care Live In Companion Name Role Phone NIKI AKINS Unavailable PROBLEMS Type Condition ICD9-CM Code CAT56-IR Code Onset Dates Condition Status SNOMED Code Problem Pancreatic lesion K86.9 Active 3647091 Problem Primary insomnia F51.01 Active 2178152 Problem Splenic artery aneurysm I72.8 Active 75366157 Problem Type 2 diabetes mellitus without complications E11.9 Active 002880402 Problem Osteoarthritis of spine with radiculopathy, cervical region M47.22 Active 466702490 Problem Hypertriglyceridemia E78.1 Active 966164919 Problem Carpal tunnel syndrome of right wrist G56.01 Active [id number] Problem Type 2 diabetes mellitus with diabetic neuropathy, without long-term current use of insulin E11.40 Active 84265861 Problem Lumbago with sciatica, right side M54.41 Active 04829794 Problem GERD (gastroesophageal reflux disease) K21.9 Active 190795385 Problem Sciatic nerve pain M54.30 Active 18972757 Problem COPD (chronic obstructive pulmonary disease) J44.9 Active 54959425 Problem Hypertension I10 Active 58783524 Problem Leg cramps R25.2 Active 525466791 ALLERGIES No Information ENCOUNTERS Encounter Location Date Diagnosis [facility] [address] [address] May, [facility] [address] [address] Apr, Type 2 diabetes mellitus with diabetic neuropathy, without long-term current use of insulin E11.40 ; Primary insomnia F51.01 and Hypertension I10 [facility] [id number] [address] March, Primary insomnia F51.01 [facility] [id number] [place] [address] March, Osteoarthritis of spine with radiculopathy, cervical region M47.22 [place] [facility] [id number] [place] [address]88- [address] Feb, Type 2 diabetes mellitus with diabetic neuropathy, without long-term current use of insulin E11.40 [place] [address] [address] Feb, [place] [place] [id number] [place] [address]- [address] Feb, [place] [address] [address] Feb, Actinic keratosis L57.0 and BMI 40.0-44.9, adult Z68.41 [place] [address] [address] Feb, Type 2 diabetes mellitus without complications E11.9 [place] [id number] [place] [address] 8[address]62- 1480 Jan, Hypertension I10 ; BMI 40.0-44.9, adult Z68.41 ; Cervicalgia M54.2 and Carpal tunnel syndrome of right wrist G56.01 [place] [id number] [place] [address]483- 8726 Jan, [facility] [id number] [place] [address] 59972- 4325 Jan, [facility] [id number] [place] [address] 43448- 6099 Jan, [facility] [id number] [place] [address] 42970- 6656 Dec, Hypertension I10 [place] [id number] [place] [address] 01149- 6677 Dec, [place] [address] [place] [address] Nov, Degenerative lumbar spinal stenosis M48.06 and COPD ( chronic obstructive pulmonary disease) J44.9 [place] [id number] [place] [address]95- 9322 Nov, Onycholysis L60.1 [facility] [id number] [place] [address] 29703- 9399 Nov, Type 2 diabetes mellitus with diabetic neuropathy, without long-term current use of insulin E11.40 ; COPD (chronic obstructive pulmonary disease) J44.9 ; GERD (gastroesophageal reflux disease) K21.9 ; Hypertriglyceridemia E78.1 ; Hypertension I10 ; Degenerative lumbar spinal stenosis M48.06 ; Lumbago with sciatica, right side M54.41 ; Sciatic nerve pain M54.30 and Primary insomnia F51.01 [place] [id number] [place] [address] 07139- 2653 Oct, Hypertension I10 ; Peripheral neuropathy G62.9 ; Type 2 diabetes mellitus without complications E11.9 and COPD (chronic obstructive pulmonary disease) J44.9 [place] [place] [id number] [place] [address] 97221- 7337 Oct, Peripheral neuropathy G62.9 [facility] [id number] [place] [address] 30459- 6145 Sep, Peripheral neuropathy G62.9 [facility] [id number] [place] [address] 99485- 3980 Aug, Peripheral neuropathy G62.9 [facility] [id number] [place] [address] 35502- 6530 Jul, [place] [place] [id number] [place] [address] 69173- 9404 Jul, [place] [id number] [place] [address] 79326- 4827 Jul, Type 2 diabetes mellitus without complications E11.9 ; Splenic artery aneurysm I72.8 ; Pancreatic lesion K86.9 ; Primary insomnia F51.01 ; Peripheral neuropathy G62.9 and Carpal tunnel syndrome of right wrist G56.01 [place] [place] [id number] [place] [address] 96833- 5307 14 Jun, 2017 Type 2 diabetes mellitus without complications E11.9 and Leg cramps R25.2 [place] [id number] [place] [address] 15083- 5905 Jun, [place] [id number] [place] [address] 64579- 8637 May, Splenic artery aneurysm I72.8 ; Pancreatic lesion K86.9 ; Hypertension I10 and Urinary tract infection without hematuria, site unspecified N39.0 [place] [id number] [place] [address] 75625- 1698 14 May, 2017 Leg cramps R25.2 [place] [id number] [place] [address] 96226- 5830 May, [place] [id number] [place] [address] 82356- 8854 May, Type 2 diabetes mellitus without complications E11.9 and GERD (gastroesophageal reflux disease) K21.9 [place] [id number] [place] [address] 62482- 7309 Apr, [place] [id number] [place] [address] 67695- 4831 Apr, [place] [id number] [place] [address] 33252- 8381 Apr, [place] [id number] [place] [address] 29116- 2472 Apr, [facility] [id number] [place] [address] 28298- 4957 Apr, Type 2 diabetes mellitus without complications E11.9 ; GERD (gastroesophageal reflux disease) K21.9 ; Peripheral neuropathy G62.9 ; Hypertension I10 ; Sciatic nerve pain M54.30 ; Morbid obesity E66.01 ; COPD ( chronic obstructive pulmonary disease) J44.9 ; Pancreatic lesion K86.9 and Splenic artery aneurysm I72.8 [place] [id number] [place] [address] 64433- 1791 March, [place] [id number] [place] [address] 46723- 5057 March, H/O hypercholesterolemia Z86.39 ; Leg cramps R25.2 ; Hypertension I10 and GERD (gastroesophageal reflux disease) K21.9 [place] [id number] [place] [address] 38614- 0539 Sep, Type 2 diabetes mellitus without complications E11.9 ; GERD (gastroesophageal reflux disease) K21.9 ; Peripheral neuropathy G62.9 ; Hypertension I10 ; Sciatic nerve pain M54.30 ; Morbid obesity E66.01 ; COPD ( chronic obstructive pulmonary disease) J44.9 ; Leg cramps R25.2 ; Other depression F32.8 ; H/O hypercholesterolemia Z86.39 and Degenerative lumbar spinal stenosis M48.06 [place] [place] [id number] [place] [address] 24371- 5806 Aug, [place] [address] [address]- 0842 Jun, [place] [place] [id number] [place] [address] 06489- 1065 Jun, [place] [id number] [place] [address] 42148- 7166 Jun, [place] [id number] [place] [address] 32535- 9023 May, Peripheral neuropathy G62.9 ; Sciatic nerve pain M54.30 ; Morbid obesity E66.01 ; Other depression F32.8 and Lumbago with sciatica, right side M54.41 [place] [id number] [place] [address] 12690- 9456 Apr, [place] [address] [address]- [address] 07 Apr, 2016 Pain in thoracic spine M54.6 ; Other chronic pain G89.29 ; Lumbago with sciatica, left side M54.42 ; Lumbago with sciatica, right side M54.41 ; Onycholysis L60.1 and Intractable vomiting with nausea, vomiting of unspecified type R11.2 [place] [address] [address]- [address] March, [place] [address] [address]- 44[address] March, Type 2 diabetes mellitus without complications E11.9 ; Onycholysis L60.1 and Encounter for screening colonoscopy Z12.11 [place] [address] [address]- 6886 Feb, [place] [address] 15984- 4414 Feb, Peripheral neuropathy G62.9 and Leg cramps R25.2 [facility] [address] [address] Jan, Influenza A J10.1 and Body aches R52 [place] [address] [address]31- 7745 09 Dec, 2015 GERD (gastroesophageal reflux disease) K21.9 ; Peripheral neuropathy G62.9 ; Hypertension I10 ; Morbid obesity E66.01 ; Encounter for immunization Z23 ; Type 2 diabetes mellitus without complications E11.9 and COPD (chronic obstructive pulmonary disease) J44.9 [place] [address] 99946- 1684 Dec, [place] [address] 17187- 3246 04 Dec, 2015 Morbid obesity E66.01 [place] [address] 0[address]96- 5178 Nov, [place] [address] [place] [address] 8[address] Nov, [facility] [address] [address] Nov, [facility] [address] [address] Nov, [facility] [address] [address]- 5[address] Oct, [facility] [id number] [place] [address] 79258- 1083 Oct, [facility] [id number] [place] [address] 50426- 8452 Oct, [facility] [id number] [place] [address] 23466- 2072 Oct, [facility] [id number] [place] [address] 90434- 2233 Sep, Type 2 diabetes mellitus without complications E11.9 ; GERD (gastroesophageal reflux disease) K21.9 ; Peripheral neuropathy G62.9 ; Hypertension I10 ; H/O hypercholesterolemia Z86.39 ; Morbid obesity E66.01 and Sciatic nerve pain M54.30 [place] [address] [address] Sep, General medical exam Z00.00 ; Abnormal chest x-ray R93.8 ; Type 2 diabetes mellitus without complications E11.9 and GERD (gastroesophageal reflux disease) K21.9 [facility] [id number] [address] 10 Sep, 2015 General medical exam Z00.00 ; Type 2 diabetes mellitus without complications E11.9 ; GERD (gastroesophageal reflux disease) K21.9 ; Abnormal chest x-ray R93.8 ; Leg cramps R25.2 ; Dietary counseling Z71.3 ; Exercise counseling Z71.89 ; Peripheral neuropathy G62.9 ; Hypertension I10 ; H/ O hypercholesterolemia Z86.39 ; Sciatic nerve pain M54.30 and Morbid obesity E66.01 [place] [address] [facility] [id number] [place] [address] March, [facility] [address] [facility] [id number] [place] [address]- [address] Sep, IMMUNIZATIONS No Known Immunizations SOCIAL HISTORY Never Assessed REASON FOR VISIT Lab (walk-in) PLAN OF CARE VITAL SIGNS MEDICATIONS Unknown Medications RESULTS No Results PROCEDURES Procedure Date Ordered Result Body Site COMPREHEN METABOLIC PANEL Dec 02, 2017 VENIPUNCT, ROUTINE* Dec 02, 2017 INSTRUCTIONS MEDICATIONS ADMINISTERED No Known Medications MEDICAL [...]
--- OUTSIDE RECORDS SUMMARY | 2019-01-25 18:04 | XMS REPORT ---
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 Name Role Phone NIKI AKINS Unavailable PROBLEMS Type Condition ICD9-CM Code UTK11-EE Code Onset Dates Condition Status SNOMED Code Problem Pancreatic lesion K86.9 Active 7250985 Problem Primary insomnia F51.01 Active 5464706 Problem Splenic artery aneurysm I72.8 Active 36883542 Problem Type 2 diabetes mellitus without complications E11.9 Active 081343935 Problem Osteoarthritis of spine with radiculopathy, cervical region M47.22 Active 622266787 Problem Hypertriglyceridemia E78.1 Active 745262012 Problem Carpal tunnel syndrome of right wrist G56.01 Active 988282687433702 Problem Type 2 diabetes mellitus with diabetic neuropathy, without long-term current use of insulin E11.40 Active 86924007 Problem Lumbago with sciatica, right side M54.41 Active 77711175 Problem GERD (gastroesophageal reflux disease) K21.9 Active 707606117 Problem Sciatic nerve pain M54.30 Active 46742943 Problem COPD (chronic obstructive pulmonary disease) J44.9 Active 74865612 Problem Hypertension I10 Active 14249077 Problem Leg cramps R25.2 Active 608313234 ALLERGIES No Information ENCOUNTERS Encounter Location Date Diagnosis [facility] [id number] [place] [address] 60193- 9941 May, [facility] [address] [address] March, Primary insomnia F51.01 [facility] [address] [place] [address] 09453- 1263 March, Osteoarthritis of spine with radiculopathy, cervical region M47.22 [facility] [address] [place] [address] 26091- 4910 Feb, Type 2 diabetes mellitus with diabetic neuropathy, without long-term current use of insulin E11.40 [facility] [id number] [place] [address] 20503- 8109 Feb, [facility] [id number] [place] [address] 37874- 2850 Feb, [place] [address] 96459- 5107 Feb, Actinic keratosis L57.0 and BMI 40.0-44.9, adult Z68.41 [place] [address] 77859- 3473 Feb, Type 2 diabetes mellitus without complications E11.9 [place] [address] 25726- 7619 Jan, Hypertension I10 ; BMI 40.0-44.9, adult Z68.41 ; Cervicalgia M54.2 and Carpal tunnel syndrome of right wrist G56.01 [place] [id number] [place] [address] 76853- 7311 Jan, [place] [address] [id number] [place] [address] 54103- 5505 Jan, [place] [address] [id number] [place] [address] 40171- 1166 Jan, [place] [address] [id number] [place] [address] 61965- 6940 Dec, Hypertension I10 [place] [address] [id number] [place] [address] 54465- 1090 Dec, [place] [address] 61827- 1187 Nov, Degenerative lumbar spinal stenosis M48.06 and COPD ( chronic obstructive pulmonary disease) J44.9 [place] [id number] [place] [address] 44662- 6314 Nov, Onycholysis L60.1 [place] [address] [id number] [place] [address] 38263- 5800 Nov, Type 2 diabetes mellitus with diabetic neuropathy, without long-term current use of insulin E11.40 ; COPD (chronic obstructive pulmonary disease) J44.9 ; GERD (gastroesophageal reflux disease) K21.9 ; Hypertriglyceridemia E78.1 ; Hypertension I10 ; Degenerative lumbar spinal stenosis M48.06 ; Lumbago with sciatica, right side M54.41 ; Sciatic nerve pain M54.30 and Primary insomnia F51.01 [place] [address] 37547- 7435 Oct, Hypertension I10 ; Peripheral neuropathy G62.9 ; Type 2 diabetes mellitus without complications E11.9 and COPD (chronic obstructive pulmonary disease) J44.9 [place] [id number] [place] [address] 26350- 0717 Oct, Peripheral neuropathy G62.9 [place] [address] [id number] [place] [address] 66869- 4365 Sep, Peripheral neuropathy G62.9 [place] [address] 86073- 4708 Aug, Peripheral neuropathy G62.9 [place] [id number] [place] [address] 28372- 2817 Jul, [place] [address] [id number] [place] [address] 28027- 1929 Jul, [place] [address] [id number] [place] [address] 43333- 5396 Jul, Type 2 diabetes mellitus without complications E11.9 ; Splenic artery aneurysm I72.8 ; Pancreatic lesion K86.9 ; Primary insomnia F51.01 ; Peripheral neuropathy G62.9 and Carpal tunnel syndrome of right wrist G56.01 [place] [id number] [place] [address] 87925- 5339 Jun, Type 2 diabetes mellitus without complications E11.9 and Leg cramps R25.2 [facility] [address] [address] 2617 Jun, [facility] [id number] [place] [address] 22244- 6956 May, Splenic artery aneurysm I72.8 ; Pancreatic lesion K86.9 ; Hypertension I10 and Urinary tract infection without hematuria, site unspecified N39.0 [facility] [id number] [place] [address] 15255- 0098 May, Leg cramps R25.2 [facility] [id number] [place] [address] 99705- 9923 May, [facility] [id number] [place] [address] 66829- 7480 May, Type 2 diabetes mellitus without complications E11.9 and GERD (gastroesophageal reflux disease) K21.9 [facility] [id number] [address]- 9599 Apr, [facility] [address] [id number] [place] [address] 78558- 6033 Apr, [facility] [id number] [place] [address] 43294- 8904 Apr, [facility] [address] [address]- 6190 Apr, [facility] [address] [place] [address] 52234- 1381 Apr, Type 2 diabetes mellitus without complications E11.9 ; GERD (gastroesophageal reflux disease) K21.9 ; Peripheral neuropathy G62.9 ; Hypertension I10 ; Sciatic nerve pain M54.30 ; Morbid obesity E66.01 ; COPD ( chronic obstructive pulmonary disease) J44.9 ; Pancreatic lesion K86.9 and Splenic artery aneurysm I72.8 [facility] [address] [address]- 8437 March, [place] [address] [address]- 8122 March, H/O hypercholesterolemia Z86.39 ; Leg cramps R25.2 ; Hypertension I10 and GERD (gastroesophageal reflux disease) K21.9 [facility] [id number] [place] [address] 27566- 7888 Sep, Type 2 diabetes mellitus without complications E11.9 ; GERD (gastroesophageal reflux disease) K21.9 ; Peripheral neuropathy G62.9 ; Hypertension I10 ; Sciatic nerve pain M54.30 ; Morbid obesity E66.01 ; COPD ( chronic obstructive pulmonary disease) J44.9 ; Leg cramps R25.2 ; Other depression F32.8 ; H/O hypercholesterolemia Z86.39 and Degenerative lumbar spinal stenosis M48.06 [place] [id number] [place] [address] 79025- 7751 Aug, [facility] [id number] [place] [address] 66471- 8687 Jun, [facility] [address] [id number] [place] [address] 90628- 8997 Jun, [facility] [address] [id number] [place] [address] 16612- 4861 Jun, [facility] [address] [id number] [place] [address] 02075- 1363 May, Peripheral neuropathy G62.9 ; Sciatic nerve pain M54.30 ; Morbid obesity E66.01 ; Other depression F32.8 and Lumbago with sciatica, right side M54.41 [facility] [id number] [place] [address] 58399- 3380 Apr, [facility] [id number] [place] [address] 20172- 0344 Apr, Pain in thoracic spine M54.6 ; Other chronic pain G89.29 ; Lumbago with sciatica, left side M54.42 ; Lumbago with sciatica, right side M54.41 ; Onycholysis L60.1 and Intractable vomiting with nausea, vomiting of unspecified type R11.2 [facility] [id number] [place] [address] 82643- 3234 March, [place] [address] 90650- 5213 March, Type 2 diabetes mellitus without complications E11.9 ; Onycholysis L60.1 and Encounter for screening colonoscopy Z12.11 [facility] [address] 02961- 8228 Feb, [place] [address] 45653- 8246 Feb, Peripheral neuropathy G62.9 and Leg cramps R25.2 [facility] [address] 56308 -8060 Jan, Influenza A J10.1 and Body aches R52 [place] [address] 17046- 8923 Dec, GERD (gastroesophageal reflux disease) K21.9 ; Peripheral neuropathy G62.9 ; Hypertension I10 ; Morbid obesity E66.01 ; Encounter for immunization Z23 ; Type 2 diabetes mellitus without complications E11.9 and COPD (chronic obstructive pulmonary disease) J44.9 [place] [id number] [place] [address] 59240- 2097 Dec, [place] [address] 31678- 9672 Dec, Morbid obesity E66.01 [place] [address] 05414- 1017 Nov, [place] [address] 69023- 6523 Nov, [place] [address] 25446- 9525 Nov, [place] [address] [place] [address]- 7579 Nov, [facility] [address] [address]- 1607 Oct, [facility] [address] [address]- 5923 Oct, [facility] [address] [place] [address] 31863- 2513 Oct, [place] [address] [id number] [place] [address] 62266- 1319 Oct, [place] [address] [place] [address] [id number] [place] [address] 71331- 6017 Sep, Type 2 diabetes mellitus without complications E11.9 ; GERD (gastroesophageal reflux disease) K21.9 ; Peripheral neuropathy G62.9 ; Hypertension I10 ; H/O hypercholesterolemia Z86.39 ; Morbid obesity E66.01 and Sciatic nerve pain M54.30 [place] [address] [place] [address] 51012- 9961 11 Sep, 2015 General medical exam Z00.00 ; Abnormal chest x-ray R93.8 ; Type 2 diabetes mellitus without complications E11.9 and GERD (gastroesophageal reflux disease) K21.9 [place] [address] [address]- 2225 10 Sep, 2015 General medical exam Z00.00 ; Type 2 diabetes mellitus without complications E11.9 ; GERD (gastroesophageal reflux disease) K21.9 ; Abnormal chest x-ray R93.8 ; Leg cramps R25.2 ; Dietary counseling Z71.3 ; Exercise counseling Z71.89 ; Peripheral neuropathy G62.9 ; Hypertension I10 ; H/ O hypercholesterolemia Z86.39 ; Sciatic nerve pain M54.30 and Morbid obesity E66.01 [place] [address] [address]- 0879 March, [place] [address] [place] [address] 90485- 7608 Sep, IMMUNIZATIONS No Known Immunizations SOCIAL HISTORY Never Assessed REASON FOR VISIT repository request PLAN OF CARE VITAL SIGNS MEDICATIONS Medication Instructions Dosage Frequency Start Date End Date Duration Status Diclofenac Sodium 75 MG Orally Twice a day 1 tablet 12h Jan, 90 days Active Lyrica 150 MG Orally twice a day 1 capsule 12h Oct, Active Metformin HCl 850 MG Orally Twice a day 1 tablet with meals 12h Active RESULTS No Results PROCEDURES No [...]
--- OUTSIDE RECORDS SUMMARY | 2019-01-25 18:05 | XMS REPORT ---
Author Author AKINSNIKI Tripathi Organization [facility] Address [address] [place] [address] Care Team Providers Care Manager Party Name Role Phone AKINSNIKI Tripathi Unavailable PROBLEMS Type Condition ICD9-CM Code JVD62-FD Code Onset Dates Condition Status SNOMED Code Problem COPD (chronic obstructive pulmonary disease) J44.9 Active 04937405 Problem Pancreatic lesion K86.9 Active 1400068 Problem Leg cramps R25.2 Active 540618694 Problem Hypertension I10 Active 43005388 Problem GERD (gastroesophageal reflux disease) K21.9 Active 852688708 Problem Sciatic nerve pain M54.30 Active 59257574 Problem Lumbago with sciatica, right side M54.41 Active 96372478 Problem Hypertriglyceridemia E78.1 Active 535022417 Problem Carpal tunnel syndrome of right wrist G56.01 Active 370014442035616 Problem Splenic artery aneurysm I72.8 Active 26223394 Problem Type 2 diabetes mellitus with diabetic neuropathy, without long-term current use of insulin E11.40 Active 70997720 Problem Primary insomnia F51.01 Active 2398041 ALLERGIES No Information ENCOUNTERS Encounter Location Date Diagnosis [facility] [address] [address]- 3950 March, [facility] [id number] [place] [address] 68431- 5959 Feb, [facility] [address] [place] [address] 34007- 3335 Jan, Hypertension I10 ; BMI 40.0-44.9, adult Z68.41 ; Cervicalgia M54.2 and Carpal tunnel syndrome of right wrist G56.01 [facility] [address] [place] [id number] [address]- 5636 Jan, [facility] [id number] [address]- 6636 Jan, [facility] [id number] [place] [address] 81494- 1496 Jan, [facility] [id number] [place] [address] 96830- 0961 Dec, Hypertension I10 [place] [address] [id number] [place] [address] 99689- 4727 Dec, [place] [id number] [place] [address] 30744- 8330 Nov, Degenerative lumbar spinal stenosis M48.06 and COPD ( chronic obstructive pulmonary disease) J44.9 [place] [address] [id number] [place] [address] 48561- 0808 Nov, Onycholysis L60.1 [place] [address] [id number] [place] [address] 36359- 3761 Nov, Type 2 diabetes mellitus with diabetic neuropathy, without long-term current use of insulin E11.40 ; COPD (chronic obstructive pulmonary disease) J44.9 ; GERD (gastroesophageal reflux disease) K21.9 ; Hypertriglyceridemia E78.1 ; Hypertension I10 ; Degenerative lumbar spinal stenosis M48.06 ; Lumbago with sciatica, right side M54.41 ; Sciatic nerve pain M54.30 and Primary insomnia F51.01 [place] [address] [place] [address] 39641- 1283 Oct, Hypertension I10 ; Peripheral neuropathy G62.9 ; Type 2 diabetes mellitus without complications E11.9 and COPD (chronic obstructive pulmonary disease) J44.9 [place] [address] [place] [address] 04125- 4799 Oct, Peripheral neuropathy G62.9 [place] [id number] [place] [address] 68836- 9098 Sep, Peripheral neuropathy G62.9 [place] [address] [id number] [place] [address] 29221- 7776 Aug, Peripheral neuropathy G62.9 [facility] [id number] [address]- 5706 Jul, [facility] [id number] [place] [address] 60351- 8976 Jul, [facility] [id number] [place] [address] 42476- 9722 Jul, Type 2 diabetes mellitus without complications E11.9 ; Splenic artery aneurysm I72.8 ; Pancreatic lesion K86.9 ; Primary insomnia F51.01 ; Peripheral neuropathy G62.9 and Carpal tunnel syndrome of right wrist G56.01 [facility] [id number] [place] [address] 18340- 2001 Jun, Type 2 diabetes mellitus without complications E11.9 and Leg cramps R25.2 [place] [id number] [place] [address] 61912- 7471 Jun, [facility] [id number] [place] [address] 26074- 9216 May, Splenic artery aneurysm I72.8 ; Pancreatic lesion K86.9 ; Hypertension I10 and Urinary tract infection without hematuria, site unspecified N39.0 [facility] [address] [address]- 6829 May, Leg cramps R25.2 [facility] [id number] [place] [address] 67205- 5977 May, [facility] [id number] [place] [address] 11164- 0049 May, Type 2 diabetes mellitus without complications E11.9 and GERD (gastroesophageal reflux disease) K21.9 [facility] [address] [place] [address] 01432- 5880 Apr, [facility] [id number] [place] [address] 68369- 2248 Apr, [facility] [address] [address]- 3313 2017 [facility] [id number] [place] [address] 28803- 6215 Apr, [facility] [id number] [place] [address] 59796- 1225 Apr, Type 2 diabetes mellitus without complications E11.9 ; GERD (gastroesophageal reflux disease) K21.9 ; Peripheral neuropathy G62.9 ; Hypertension I10 ; Sciatic nerve pain M54.30 ; Morbid obesity E66.01 ; COPD ( chronic obstructive pulmonary disease) J44.9 ; Pancreatic lesion K86.9 and Splenic artery aneurysm I72.8 [place] [id number] [place] [address] 54986- 5041 March, [place] [id number] [place] [address] 97092- 9700 March, H/O hypercholesterolemia Z86.39 ; Leg cramps R25.2 ; Hypertension I10 and GERD (gastroesophageal reflux disease) K21.9 [place] [address] [place] [address] 69565- 7293 Sep, Type 2 diabetes mellitus without complications E11.9 ; GERD (gastroesophageal reflux disease) K21.9 ; Peripheral neuropathy G62.9 ; Hypertension I10 ; Sciatic nerve pain M54.30 ; Morbid obesity E66.01 ; COPD ( chronic obstructive pulmonary disease) J44.9 ; Leg cramps R25.2 ; Other depression F32.8 ; H/O hypercholesterolemia Z86.39 and Degenerative lumbar spinal stenosis M48.06 [place] [address] [address]- 5613 Aug, [facility] [id number] [place] [address] 68107- 3410 Jun, [facility] [id number] [place] [address] 10586- 2799 Jun, [facility] [id number] [place] [address] 92911- 0275 Jun, [place] [id number] [place] [address] 72411- 8485 May, Peripheral neuropathy G62.9 ; Sciatic nerve pain M54.30 ; Morbid obesity E66.01 ; Other depression F32.8 and Lumbago with sciatica, right side M54.41 [place] [address] 04545- 1899 Apr, [place] [address] 82028- 3519 Apr, Pain in thoracic spine M54.6 ; Other chronic pain G89.29 ; Lumbago with sciatica, left side M54.42 ; Lumbago with sciatica, right side M54.41 ; Onycholysis L60.1 and Intractable vomiting with nausea, vomiting of unspecified type R11.[address] 70964- 7629 March, [place] [address] 52147- 1348 March, Type 2 diabetes mellitus without complications E11.9 ; Onycholysis L60.1 and Encounter for screening colonoscopy Z12.11 [place] [id number] [place] [address] 44883- 0461 Feb, [place] [address] 59884- 2715 15 Feb, 2016 Peripheral neuropathy G62.9 and Leg cramps R25.2 [facility] [address] 91107 -3387 Jan, Influenza A J10.1 and Body aches R52 [place] [address] 82243- 8537 09 Dec, 2015 GERD (gastroesophageal reflux disease) K21.9 ; Peripheral neuropathy G62.9 ; Hypertension I10 ; Morbid obesity E66.01 ; Encounter for immunization Z23 ; Type 2 diabetes mellitus without complications E11.9 and COPD (chronic obstructive pulmonary disease) J44.9 [facility] [address] [address]- 3606 Dec, [facility] [id number] [place] [address] 66795- 6797 Dec, Morbid obesity E66.01 [facility] [id number] [place] [address] 59453- 5449 Nov, [facility] [id number] [place] [address] 96930- 7429 Nov, [facility] [id number] [place] [address] 98513- 0798 Nov, [facility] [id number] [place] [address] 75974- 2813 Nov, [facility] [id number] [place] [address] 18705- 7800 Oct, [facility] [address] [place] [address] 38715- 2693 Oct, [facility] [id number] [place] [address] 33876- 4166 Oct, [facility] [address], [place] [address]- 5990 Oct, [facility] [id number] [address]- 0831 Sep, Type 2 diabetes mellitus without complications E11.9 ; GERD (gastroesophageal reflux disease) K21.9 ; Peripheral neuropathy G62.9 ; Hypertension I10 ; H/O hypercholesterolemia Z86.39 ; Morbid obesity E66.01 and Sciatic nerve pain M54.30 [facility] [address], [place] [address]- 9486 Sep, General medical exam Z00.00 ; Abnormal chest x-ray R93.8 ; Type 2 diabetes mellitus without complications E11.9 and GERD (gastroesophageal reflux disease) K21.9 [place] [address] [facility] [id number] [address]- 4214 10 Sep, 2015 General medical exam Z00.00 ; Type 2 diabetes mellitus without complications E11.9 ; GERD (gastroesophageal reflux disease) K21.9 ; Abnormal chest x-ray R93.8 ; Leg cramps R25.2 ; Dietary counseling Z71.3 ; Exercise counseling Z71.89 ; Peripheral neuropathy G62.9 ; Hypertension I10 ; H/ O hypercholesterolemia Z86.39 ; Sciatic nerve pain M54.30 and Morbid obesity E66.01 [place] [address] [facility] [id number] [address]- [address] March, [place] [id number] [address]- 8649 Sep, IMMUNIZATIONS No Known Immunizations SOCIAL HISTORY Never Assessed REASON FOR VISIT Hospital admit/DC PLAN OF CARE VITAL SIGNS MEDICATIONS Medication Instructions Dosage Frequency Start Date End Date Duration Status Ondansetron 4 MG Orally every 8 hrs 1 tablet on the tongue and allow to dissolve 8h Apr, 30 days Active Protonix 40 mg Orally Once a day 1 tablet 24h May, 90 days Active Cefdinir 300 MG Orally every 12 hrs 1 capsule 12h May, May, 05 days Active RESULTS No Results PROCEDURES No [...]
--- OUTSIDE RECORDS SUMMARY | 2019-01-25 18:05 | XMS REPORT ---
Author Author AKINSNIKI Tripathi [facility] Address [address] [place] [address] Care Team Providers Care Rigger Up Name Role Phone NIKI AKINS Unavailable PROBLEMS Type Condition ICD9-CM Code MBI54-KB Code Onset Dates Condition Status SNOMED Code Problem COPD (chronic obstructive pulmonary disease) J44.9 Active 70714378 Problem Pancreatic lesion K86.9 Active 6370851 Problem Leg cramps R25.2 Active 135238747 Problem Hypertension I10 Active 20745343 Problem GERD (gastroesophageal reflux disease) K21.9 Active 752043355 Problem Sciatic nerve pain M54.30 Active 77325645 Problem Lumbago with sciatica, right side M54.41 Active 74012629 Problem Hypertriglyceridemia E78.1 Active 701089626 Problem Carpal tunnel syndrome of right wrist G56.01 Active 570983720455365 Problem Splenic artery aneurysm I72.8 Active 35307680 Problem Type 2 diabetes mellitus with diabetic neuropathy, without long-term current use of insulin E11.40 Active 67070743 Problem Primary insomnia F51.01 Active 9553389 ALLERGIES No Information ENCOUNTERS Encounter Location Date Diagnosis [facility] [address], [place] [address] Jan, [facility] [address], [place] [address] 9[address] Jan, [facility] [address], [place] [address] 47[address] Jan, [facility] [id number] [place] [address] 28275- 2009 Jan, [facility] [address], [place] [address] 6927 Dec, Hypertension I10 [facility] [id number] [place] [address] 66069- 2595 Dec, [facility] [id number] [place] [address] 98830- 7008 Nov, Degenerative lumbar spinal stenosis M48.06 and COPD ( chronic obstructive pulmonary disease) J44.9 [facility] [id number] [place] [address] 98516- 3292 Nov, Onycholysis L60.1 [facility] [id number] [place] [address] 75674- 6830 Nov, Type 2 diabetes mellitus with diabetic neuropathy, without long-term current use of insulin E11.40 ; COPD (chronic obstructive pulmonary disease) J44.9 ; GERD (gastroesophageal reflux disease) K21.9 ; Hypertriglyceridemia E78.1 ; Hypertension I10 ; Degenerative lumbar spinal stenosis M48.06 ; Lumbago with sciatica, right side M54.41 ; Sciatic nerve pain M54.30 and Primary insomnia F51.01 [facility] [id number] [place] [address] 56005- 7301 Oct, Hypertension I10 ; Peripheral neuropathy G62.9 ; Type 2 diabetes mellitus without complications E11.9 and COPD (chronic obstructive pulmonary disease) J44.9 [facility] [id number] [place] [address] 47600- 7047 Oct, Peripheral neuropathy G62.9 [place] [id number] [place] [address] 56559- 4736 Sep, Peripheral neuropathy G62.9 [facility] [id number] [place] [address] 77032- 3024 Aug, Peripheral neuropathy G62.9 [facility] [id number] [place] [address] 30759- 2336 Jul, [facility] [id number] [place] [address] 72210- 3551 Jul, [facility] [id number] [place] [address] 54076- 6618 Jul, Type 2 diabetes mellitus without complications E11.9 ; Splenic artery aneurysm I72.8 ; Pancreatic lesion K86.9 ; Primary insomnia F51.01 ; Peripheral neuropathy G62.9 and Carpal tunnel syndrome of right wrist G56.01 [facility] [address] [place] [address] 74824- 5918 Jun, Type 2 diabetes mellitus without complications E11.9 and Leg cramps R25.2 [place] [id number] [place] [address] 73451- 4659 Jun, [facility] [id number] [place] [address] 66582- 0477 May, Splenic artery aneurysm I72.8 ; Pancreatic lesion K86.9 ; Hypertension I10 and Urinary tract infection without hematuria, site unspecified N39.0 [place] [id number] [place] [address] 88280- 4794 May, Leg cramps R25.2 [facility] [id number] [place] [address] 35254- 9618 May, [place] [id number] [place] [address] 24710- 7364 May, Type 2 diabetes mellitus without complications E11.9 and GERD (gastroesophageal reflux disease) K21.9 [facility] [id number] [place] [address] 55212- 0947 Apr, [facility] [id number] [place] [address] 94956- 7866 Apr, [facility] [id number] [place] [address] 01734- 7943 Apr, [facility] [id number] [place] [address] 54388- 1975 Apr, [facility] [id number] [place] [address] 75750- 8013 Apr, Type 2 diabetes mellitus without complications E11.9 ; GERD (gastroesophageal reflux disease) K21.9 ; Peripheral neuropathy G62.9 ; Hypertension I10 ; Sciatic nerve pain M54.30 ; Morbid obesity E66.01 ; COPD ( chronic obstructive pulmonary disease) J44.9 ; Pancreatic lesion K86.9 and Splenic artery aneurysm I72.8 [place] [address] [address]- 1943 March, [place] [address] 04839- 4667 March, H/O hypercholesterolemia Z86.39 ; Leg cramps R25.2 ; Hypertension I10 and GERD (gastroesophageal reflux disease) K21.9 [place] [address] 34380- 6487 Sep, Type 2 diabetes mellitus without complications E11.9 ; GERD (gastroesophageal reflux disease) K21.9 ; Peripheral neuropathy G62.9 ; Hypertension I10 ; Sciatic nerve pain M54.30 ; Morbid obesity E66.01 ; COPD ( chronic obstructive pulmonary disease) J44.9 ; Leg cramps R25.2 ; Other depression F32.8 ; H/O hypercholesterolemia Z86.39 and Degenerative lumbar spinal stenosis M48.06 [place] [address] 18815- 6626 Aug, [place] [address] 91184- 4421 Jun, [place] [address] 07060- 0785 Jun, [place] [address] 85817- 3635 Jun, [place] [address] 54871- 5638 May, Peripheral neuropathy G62.9 ; Sciatic nerve pain M54.30 ; Morbid obesity E66.01 ; Other depression F32.8 and Lumbago with sciatica, right side M54.41 [place] [address] 18194- 1364 22 Apr, [address] 93576- 2098 07 Apr, 2016 Pain in thoracic spine M54.6 ; Other chronic pain G89.29 ; Lumbago with sciatica, left side M54.42 ; Lumbago with sciatica, right side M54.41 ; Onycholysis L60.1 and Intractable vomiting with nausea, vomiting of unspecified type R11.2 [place] [address] 25841- 1190 March, [address] 22901- 6570 March, Type 2 diabetes mellitus without complications E11.9 ; Onycholysis L60.1 and Encounter for screening colonoscopy Z12.[address] [address]30- 6017 Feb, [address] 39449- 2271 15 Feb, 2016 Peripheral neuropathy G62.9 and Leg cramps R25.2 [facility] [place] [address] [address]85 11 Jan, 2016 Influenza A J10.1 and Body aches R52 [place] [id number] [place] [address] 13673- 9093 09 Dec, 2015 GERD (gastroesophageal reflux disease) K21.9 ; Peripheral neuropathy G62.9 ; Hypertension I10 ; Morbid obesity E66.01 ; Encounter for immunization Z23 ; Type 2 diabetes mellitus without complications E11.9 and COPD (chronic obstructive pulmonary disease) J44.[address] 07584- 1129 08 Dec, [address] 38235- 8752 04 Dec, 2015 Morbid obesity E66.01 [place] [address] [address]- 6466 Nov, [facility] [address], [place] [address]- 7179 Nov, [facility] [address] [place] [address] 71070- 1307 Nov, [facility] [id number] [place] [address] 15292- 1583 Nov, [facility] [id number] [place] [address] 70202- 2607 Oct, [facility] [id number] [place] [address] 85776- 0374 Oct, [facility] [id number] [place] [address] 41065- 5900 Oct, [facility] [id number] [place] [address] 62203- 4302 Oct, [facility] [address], [place] [address]- 4793 Sep, Type 2 diabetes mellitus without complications E11.9 ; GERD (gastroesophageal reflux disease) K21.9 ; Peripheral neuropathy G62.9 ; Hypertension I10 ; H/O hypercholesterolemia Z86.39 ; Morbid obesity E66.01 and Sciatic nerve pain M54.30 [facility] [address], [place] [address]- 3286 Sep, General medical exam Z00.00 ; Abnormal chest x-ray R93.8 ; Type 2 diabetes mellitus without complications E11.9 and GERD (gastroesophageal reflux disease) K21.9 [facility] [address], [place] [address]- 1042 10 Sep, 2015 General medical exam Z00.00 ; Type 2 diabetes mellitus without complications E11.9 ; GERD (gastroesophageal reflux disease) K21.9 ; Abnormal chest x-ray R93.8 ; Leg cramps R25.2 ; Dietary counseling Z71.3 ; Exercise counseling Z71.89 ; Peripheral neuropathy G62.9 ; Hypertension I10 ; H/ O hypercholesterolemia Z86.39 ; Sciatic nerve pain M54.30 and Morbid obesity E66.01 [facility] [address] [facility] [id number] [address] March, [facility] [address] [facility] [id number], [place] [address]- 2644 Sep, IMMUNIZATIONS No Known Immunizations SOCIAL HISTORY [...]
--- OUTSIDE RECORDS SUMMARY | 2019-01-25 18:05 | XMS REPORT ---
Author Author AKINSNIKI Tripathi Organization [facility] Address [address] [place] [address] Care Team Providers Care Head Golf Professional Name Role Phone AKINSNIKI Tripathi Unavailable PROBLEMS Type Condition ICD9-CM Code [id number] Code Onset Dates Condition Status SNOMED Code Problem COPD (chronic obstructive pulmonary disease) J44.9 Active 06735438 Problem Pancreatic lesion K86.9 Active 5657674 Problem Leg cramps R25.2 Active 355225096 Problem Hypertension I10 Active 46645701 Problem GERD (gastroesophageal reflux disease) K21.9 Active 355590417 Problem Sciatic nerve pain M54.30 Active 33437370 Problem Lumbago with sciatica, right side M54.41 Active 90300921 Problem Hypertriglyceridemia E78.1 Active 337024947 Problem Carpal tunnel syndrome of right wrist G56.01 Active 967643447950543 Problem Splenic artery aneurysm I72.8 Active 10791487 Problem Type 2 diabetes mellitus with diabetic neuropathy, without long-term current use of insulin E11.40 Active 77345982 Problem Primary insomnia F51.01 Active 1305142 ALLERGIES No Information ENCOUNTERS Encounter Location Date Diagnosis [facility] [address], [place] [address] March, [facility] [id number] [place] [address] 13784- 3845 Feb, [facility] [address] [place] [address] 14093- 6710 Jan, Hypertension I10 ; BMI 40.0-44.9, adult Z68.41 ; Cervicalgia M54.2 and Carpal tunnel syndrome of right wrist G56.01 [facility] [id number], [place] [address]- 8[address] Jan, [facility] [id number], [place] [address]- 3368 Jan, [facility] [id number] [place] [address] 58496- 8004 Jan, [facility] [id number] [place] [address] 92013- 9996 Dec, Hypertension I10 [place] [id number] [place] [address] 90667- 1576 Dec, [place] [id number] [place] [address] 76242- 9053 Nov, Degenerative lumbar spinal stenosis M48.06 and COPD ( chronic obstructive pulmonary disease) J44.9 [place] [id number] [place] [address] 18080- 2134 Nov, Onycholysis L60.1 [place] [id number] [place] [address] 47934- 2084 Nov, Type 2 diabetes mellitus with diabetic neuropathy, without long-term current use of insulin E11.40 ; COPD (chronic obstructive pulmonary disease) J44.9 ; GERD (gastroesophageal reflux disease) K21.9 ; Hypertriglyceridemia E78.1 ; Hypertension I10 ; Degenerative lumbar spinal stenosis M48.06 ; Lumbago with sciatica, right side M54.41 ; Sciatic nerve pain M54.30 and Primary insomnia F51.01 [place] [address] [place] [address] 51137- 8701 Oct, Hypertension I10 ; Peripheral neuropathy G62.9 ; Type 2 diabetes mellitus without complications E11.9 and COPD (chronic obstructive pulmonary disease) J44.9 [place] [address] [place] [address] 47745- 5210 Oct, Peripheral neuropathy G62.9 [place] [id number] [place] [address] 00063- 2608 Sep, Peripheral neuropathy G62.9 [place] [id number] [place] [address] 12759- 9293 Aug, Peripheral neuropathy G62.9 [facility] [address], [place] [address]- 6609 Jul, [facility] [id number] [place] [address] 93112- 2769 Jul, [facility] [id number] [place] [address] 44694- 7531 Jul, Type 2 diabetes mellitus without complications E11.9 ; Splenic artery aneurysm I72.8 ; Pancreatic lesion K86.9 ; Primary insomnia F51.01 ; Peripheral neuropathy G62.9 and Carpal tunnel syndrome of right wrist G56.01 [facility] [id number] [place] [address] 81379- 2981 Jun, Type 2 diabetes mellitus without complications E11.9 and Leg cramps R25.2 [place] [id number] [place] [address] 02305- 5228 Jun, [facility] [id number] [place] [address] 02570- 4036 May, Splenic artery aneurysm I72.8 ; Pancreatic lesion K86.9 ; Hypertension I10 and Urinary tract infection without hematuria, site unspecified N39.0 [facility] [address], [place] [address]- 8365 May, Leg cramps R25.2 [facility] [id number] [place] [address] 84152- 4201 May, [facility] [id number] [place] [address] 86916- 5231 May, Type 2 diabetes mellitus without complications E11.9 and GERD (gastroesophageal reflux disease) K21.9 [facility] [address] [place] [address] 68188- 4217 Apr, [facility] [id number] [place] [address] 82686- 0783 Apr, [facility] [address], [place] [address]- [address] [address] [facility] [id number] [place] [address] 30967- 8849 Apr, [facility] [id number] [place] [address] 65196- 1547 Apr, Type 2 diabetes mellitus without complications E11.9 ; GERD (gastroesophageal reflux disease) K21.9 ; Peripheral neuropathy G62.9 ; Hypertension I10 ; Sciatic nerve pain M54.30 ; Morbid obesity E66.01 ; COPD ( chronic obstructive pulmonary disease) J44.9 ; Pancreatic lesion K86.9 and Splenic artery aneurysm I72.8 [place] [id number] [place] [address] 38133- 8000 March, [place] [id number] [place] [address] 92812- 6325 March, H/O hypercholesterolemia Z86.39 ; Leg cramps R25.2 ; Hypertension I10 and GERD (gastroesophageal reflux disease) K21.9 [place] [address] [place] [address] 32105- 0897 Sep, Type 2 diabetes mellitus without complications E11.9 ; GERD (gastroesophageal reflux disease) K21.9 ; Peripheral neuropathy G62.9 ; Hypertension I10 ; Sciatic nerve pain M54.30 ; Morbid obesity E66.01 ; COPD ( chronic obstructive pulmonary disease) J44.9 ; Leg cramps R25.2 ; Other depression F32.8 ; H/O hypercholesterolemia Z86.39 and Degenerative lumbar spinal stenosis M48.06 [place] [address], [place] [address]- 6537 Aug, [facility] [id number] [place] [address] 87007- 4177 Jun, [facility] [id number] [place] [address] 41954- 7039 Jun, [facility] [id number] [place] [address] 71071- 6775 Jun, [place] [id number] [place] [address] 20711- 9350 May, Peripheral neuropathy G62.9 ; Sciatic nerve pain M54.30 ; Morbid obesity E66.01 ; Other depression F32.8 and Lumbago with sciatica, right side M54.41 [place] [address] 72812- 2436 Apr, [place] [address] 02519- 6844 Apr, Pain in thoracic spine M54.6 ; Other chronic pain G89.29 ; Lumbago with sciatica, left side M54.42 ; Lumbago with sciatica, right side M54.41 ; Onycholysis L60.1 and Intractable vomiting with nausea, vomiting of unspecified type R11.[address] 22068- 6013 March, [place] [address] 86492- 3292 March, Type 2 diabetes mellitus without complications E11.9 ; Onycholysis L60.1 and Encounter for screening colonoscopy Z12.11 [place] [id number] [place] [address] 90927- 2004 Feb, [place] [address] 26740- 9546 15 Feb, 2016 Peripheral neuropathy G62.9 and Leg cramps R25.2 [facility] [address] 39153 -9887 Jan, Influenza A J10.1 and Body aches R52 [place] [address] 95829- 3245 09 Dec, 2015 GERD (gastroesophageal reflux disease) K21.9 ; Peripheral neuropathy G62.9 ; Hypertension I10 ; Morbid obesity E66.01 ; Encounter for immunization Z23 ; Type 2 diabetes mellitus without complications E11.9 and COPD (chronic obstructive pulmonary disease) J44.9 [facility] [address], [place] [address]- 5067 Dec, [facility] [id number] [place] [address] 96535- 3125 Dec, Morbid obesity E66.01 [facility] [id number] [place] [address] 74354- 5961 Nov, [facility] [id number] [place] [address] 82044- 4353 Nov, [facility] [id number] [place] [address] 72509- 0150 Nov, [facility] [id number] [place] [address] 25363- 3905 Nov, [facility] [id number] [place] [address] 26676- 1349 Oct, [facility] [address] [place] [address] 64116- 1609 Oct, [facility] [id number] [place] [address] 44196- 5395 Oct, [facility] [address], [place] [address]- 2690 Oct, [facility] [id number], [place] [address]- 8387 Sep, Type 2 diabetes mellitus without complications E11.9 ; GERD (gastroesophageal reflux disease) K21.9 ; Peripheral neuropathy G62.9 ; Hypertension I10 ; H/O hypercholesterolemia Z86.39 ; Morbid obesity E66.01 and Sciatic nerve pain M54.30 [facility] [address], [place] [address]- 4504 Sep, General medical exam Z00.00 ; Abnormal chest x-ray R93.8 ; Type 2 diabetes mellitus without complications E11.9 and GERD (gastroesophageal reflux disease) K21.9 [place] [address] [place] [id number] [address]- 8121 10 Sep, 2015 General medical exam Z00.00 ; Type 2 diabetes mellitus without complications E11.9 ; GERD (gastroesophageal reflux disease) K21.9 ; Abnormal chest x-ray R93.8 ; Leg cramps R25.2 ; Dietary counseling Z71.3 ; Exercise counseling Z71.89 ; Peripheral neuropathy G62.9 ; Hypertension I10 ; H/ O hypercholesterolemia Z86.39 ; Sciatic nerve pain M54.30 and Morbid obesity E66.01 [place] [id number], [place] [address]- 7355 March, [place] [id number], [place] [address]- 3968 Sep, IMMUNIZATIONS No Known Immunizations SOCIAL HISTORY Never Assessed REASON FOR VISIT Repository Medication PLAN OF CARE VITAL SIGNS MEDICATIONS Medication Instructions Dosage Frequency Start Date End Date Duration Status Diclofenac Sodium 75 MG Orally Twice a day 1 tablet 12h 30 days Active RESULTS No Results PROCEDURES [...]
--- OUTSIDE RECORDS SUMMARY | 2019-01-25 18:05 | XMS REPORT ---
Author Author AKINSBOLIVAR TripathiELE Organization [facility] Address [address] [place] [address] Care Team Providers Care Rn Er Name Role Phone AKINSNIKI Tripathi Unavailable PROBLEMS Type Condition ICD9-CM Code [id number] Code Onset Dates Condition Status SNOMED Code Problem COPD (chronic obstructive pulmonary disease) J44.9 Active 42948914 Problem Encounter for screening colonoscopy Z12.11 Active 240360664 Problem Leg cramps R25.2 Active 906602376 Problem Primary insomnia F51.01 Active 5240888 Problem Carpal tunnel syndrome of right wrist G56.01 Active 445159029869892 Problem Other depression F32.8 Active 87770572 Problem Onycholysis L60.1 Active 61283591 Problem Splenic artery aneurysm I72.8 Active 87964146 Problem Pancreatic lesion K86.9 Active 6670468 Problem H/O hypercholesterolemia Z86.39 Active 530175346 Problem Hypertension I10 Active 75528192 Problem Type 2 diabetes mellitus without complications E11.9 Active 56254767 Problem Sciatic nerve pain M54.30 Active 50445443 Problem Peripheral neuropathy G62.9 Active 51502640 Problem GERD (gastroesophageal reflux disease) K21.9 Active 583263431 Problem Morbid obesity E66.01 Active 781449492 ALLERGIES No Information SOCIAL HISTORY Never Assessed PLAN OF CARE VITAL SIGNS MEDICATIONS Medication Instructions Dosage Frequency Start Date End Date Duration Status Norvasc 10 mg Orally Once a day 1 tablet 24h 30 days Active Nexium 24HR 20 mg Orally Once a day 1 capsule 24h 13 Aug, 2016 90 days Active Flagyl 500 mg Orally 2 times a day 1 tablet 12h March, March, 10 day(s) Active Cipro 500 MG Orally Twice a day 1 tablet 12h March, March, 10 day(s) Active Pravachol 40 mg Orally Once a day 1 tablet 24h 90 days Active Savella 50 mg Orally 2 times a day 1 tablet 12h Feb, 90 days Active Carafate 1 GM Orally 4 times a day 1 tablet on an empty stomach 6h 15 Mar, 2017 30 day(s) Active RESULTS No Results PROCEDURES No Known [...]
--- OUTSIDE RECORDS SUMMARY | 2019-01-25 18:06 | XMS REPORT ---
Author Author AKINSNIKI Tripathi 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 Name Role Phone AKINSNIKI Tripathi Unavailable PROBLEMS Type Condition ICD9-CM Code PGD67-ZA Code Onset Dates Condition Status SNOMED Code Problem COPD (chronic obstructive pulmonary disease) J44.9 Active 66380158 Problem Pancreatic lesion K86.9 Active 3663013 Problem Leg cramps R25.2 Active 337503165 Problem Hypertension I10 Active 75848140 Problem GERD (gastroesophageal reflux disease) K21.9 Active 778152683 Problem Sciatic nerve pain M54.30 Active 49554439 Problem Lumbago with sciatica, right side M54.41 Active 01739680 Problem Hypertriglyceridemia E78.1 Active 245595200 Problem Carpal tunnel syndrome of right wrist G56.01 Active 307876818038671 Problem Splenic artery aneurysm I72.8 Active 48174292 Problem Type 2 diabetes mellitus with diabetic neuropathy, without long-term current use of insulin E11.40 Active 55716241 Problem Primary insomnia F51.01 Active [id number] ALLERGIES No Information ENCOUNTERS Encounter Location Date Diagnosis [facility] [address] [address] Jan, [facility] [id number] [place] [address] Jan, [facility] [address] [address] Jan, [facility] [address] [address] Dec, Hypertension I10 [facility] [address] [address] Dec, [facility] [id number] [place] [address] 92190- 1323 Nov, Degenerative lumbar spinal stenosis M48.06 and COPD ( chronic obstructive pulmonary disease) J44.9 [facility] [id number] [place] [address]19- 2276 Nov, Onycholysis L60.1 [facility] [id number] [place] [address] 85562- 5103 Nov, Type 2 diabetes mellitus with diabetic neuropathy, without long-term current use of insulin E11.40 ; COPD (chronic obstructive pulmonary disease) J44.9 ; GERD (gastroesophageal reflux disease) K21.9 ; Hypertriglyceridemia E78.1 ; Hypertension I10 ; Degenerative lumbar spinal stenosis M48.06 ; Lumbago with sciatica, right side M54.41 ; Sciatic nerve pain M54.30 and Primary insomnia F51.01 [place] [id number] [address] Oct, Hypertension I10 ; Peripheral neuropathy G62.9 ; Type 2 diabetes mellitus without complications E11.9 and COPD (chronic obstructive pulmonary disease) J44.9 [place] [id number] [place] [address] 87774- 3181 Oct, Peripheral neuropathy G62.9 [place] [id number] [place] [address] 14298- 7808 Sep, Peripheral neuropathy G62.9 [place] [id number] [place] [address] 46529- 4774 Aug, Peripheral neuropathy G62.9 [facility] [id number] [place] [address] 59936- 9510 Jul, [place] [id number] [place] [address] 61589- 4524 Jul, [facility] [id number] [place] [address] 04470- 8694 Jul, Type 2 diabetes mellitus without complications E11.9 ; Splenic artery aneurysm I72.8 ; Pancreatic lesion K86.9 ; Primary insomnia F51.01 ; Peripheral neuropathy G62.9 and Carpal tunnel syndrome of right wrist G56.01 [place] [id number] [place] [address] 14284- 4069 14 Jun, 2017 Type 2 diabetes mellitus without complications E11.9 and Leg cramps R25.2 [place] [id number] [place] [address] 24210- 4983 Jun, [place] [id number] [place] [address] 73615- 5345 May, Splenic artery aneurysm I72.8 ; Pancreatic lesion K86.9 ; Hypertension I10 and Urinary tract infection without hematuria, site unspecified N39.0 [place] [id number] [place] [address] 76489- 3492 14 May, 2017 Leg cramps R25.2 [place] [id number] [place] [address] 11193- 8865 May, [place] [id number] [place] [address] 84630- 1405 May, Type 2 diabetes mellitus without complications E11.9 and GERD (gastroesophageal reflux disease) K21.9 [place] [id number] [place] [address] 49222- 0740 Apr, [place] [id number] [place] [address] 69295- 0503 Apr, [place] [id number] [place] [address] 11480- 7097 Apr, [facility] [id number] [place] [address] 88961- 5004 Apr, [facility] [id number] [place] [address] 03559- 8293 Apr, Type 2 diabetes mellitus without complications E11.9 ; GERD (gastroesophageal reflux disease) K21.9 ; Peripheral neuropathy G62.9 ; Hypertension I10 ; Sciatic nerve pain M54.30 ; Morbid obesity E66.01 ; COPD ( chronic obstructive pulmonary disease) J44.9 ; Pancreatic lesion K86.9 and Splenic artery aneurysm I72.8 [facility] [id number] [place] [address] 16717- 9769 March, [facility] [id number] [place] [address] 98876- 6586 March, H/O hypercholesterolemia Z86.39 ; Leg cramps R25.2 ; Hypertension I10 and GERD (gastroesophageal reflux disease) K21.9 [place] [id number] [place] [address] 72956- 9089 Sep, Type 2 diabetes mellitus without complications E11.9 ; GERD (gastroesophageal reflux disease) K21.9 ; Peripheral neuropathy G62.9 ; Hypertension I10 ; Sciatic nerve pain M54.30 ; Morbid obesity E66.01 ; COPD ( chronic obstructive pulmonary disease) J44.9 ; Leg cramps R25.2 ; Other depression F32.8 ; H/O hypercholesterolemia Z86.39 and Degenerative lumbar spinal stenosis M48.06 [place] [id number] [place] [address] 68679- 3275 Aug, [place] [address] [address]- [address] Jun, [place] [id number] [place] [address] 07244- 0343 Jun, [place] [id number] [place] [address] 96602- 7400 Jun, [place] [id number] [place] [address] 50191- 3936 May, Peripheral neuropathy G62.9 ; Sciatic nerve pain M54.30 ; Morbid obesity E66.01 ; Other depression F32.8 and Lumbago with sciatica, right side M54.41 [facility] [id number] [place] [address] 21703- 2374 Apr, [place] [address] [address]90- 6908 07 Apr, 2016 Pain in thoracic spine M54.6 ; Other chronic pain G89.29 ; Lumbago with sciatica, left side M54.42 ; Lumbago with sciatica, right side M54.41 ; Onycholysis L60.1 and Intractable vomiting with nausea, vomiting of unspecified type R11.2 [place] [id number] [place] [address] 51658- 2378 March, [place] [address] [address]- 4110 March, Type 2 diabetes mellitus without complications E11.9 ; Onycholysis L60.1 and Encounter for screening colonoscopy Z12.11 [place] [address] 02286- 3499 Feb, [place] [address] 62379- 7312 Feb, Peripheral neuropathy G62.9 and Leg cramps R25.2 [facility] [address] [address] Jan, Influenza A J10.1 and Body aches R52 [place] [id number] [place] [address] 97814- 7255 09 Dec, 2015 GERD (gastroesophageal reflux disease) K21.9 ; Peripheral neuropathy G62.9 ; Hypertension I10 ; Morbid obesity E66.01 ; Encounter for immunization Z23 ; Type 2 diabetes mellitus without complications E11.9 and COPD (chronic obstructive pulmonary disease) J44.9 [place] [id number] [place] [address] 21466- 5551 08 Dec, 2015 [place] [address] 29769- 1124 04 Dec, 2015 Morbid obesity E66.01 [place] [id number] [place] [address] 80496- 0829 Nov, [place] [address] [id number] [address]- 1531 Nov, [facility] [address] [address]- 8823 Nov, [facility] [address] [address]- 3658 Nov, [facility] [id number] [place] [address] 87730- 7250 Oct, [facility] [id number] [place] [address] 04114- 8863 Oct, [facility] [id number] [place] [address] 48832- 7074 Oct, [facility] [id number] [place] [address] 23026- 5082 Oct, [facility] [id number] [place] [address] 51815- 5564 Sep, Type 2 diabetes mellitus without complications E11.9 ; GERD (gastroesophageal reflux disease) K21.9 ; Peripheral neuropathy G62.9 ; Hypertension I10 ; H/O hypercholesterolemia Z86.39 ; Morbid obesity E66.01 and Sciatic nerve pain M54.30 [facility] [address] [address]- 9[address] Sep, General medical exam Z00.00 ; Abnormal chest x-ray R93.8 ; Type 2 diabetes mellitus without complications E11.9 and GERD (gastroesophageal reflux disease) K21.9 [facility] [address] [address] 10 Sep, 2015 General medical exam Z00.00 ; Type 2 diabetes mellitus without complications E11.9 ; GERD (gastroesophageal reflux disease) K21.9 ; Abnormal chest x-ray R93.8 ; Leg cramps R25.2 ; Dietary counseling Z71.3 ; Exercise counseling Z71.89 ; Peripheral neuropathy G62.9 ; Hypertension I10 ; H/ O hypercholesterolemia Z86.39 ; Sciatic nerve pain M54.30 and Morbid obesity E66.01 [facility] [address] [facility] [id number] [place] [address] March, [facility] [address] [facility] [id number] [address] 0[address] Sep, IMMUNIZATIONS No Known Immunizations SOCIAL HISTORY Never Assessed REASON FOR VISIT leg issues PLAN OF CARE VITAL SIGNS MEDICATIONS Unknown [...]
--- OUTSIDE RECORDS SUMMARY | 2019-01-25 18:09 | XMS REPORT | Continuity of Care Document ---
Author Author [facility] Organization [facility] Address Unknown Phone Unavailable Allergies Active Description Code Type Severity Reaction Onset Reported/Identified Relationship to Patient Clinical Status Yes NO KNOWN DRUG ALLERGIES UNKNOWN NO KNOWN DRUG ALLERG Yes No Known Drug Allergies [id number] Drug Allergy Mild N/A 04/16/2008 Yes No Known Drug Allergies [id number] Drug Allergy Unknown N/A 05/01/2017 Medications There is no data. Problems Date Dx Coded Attending Type Code Diagnosis Diagnosed By 01/28/2015 SANFORD BOLAND MD Ot 721.2 01/28/2015 SANFORD BOLAND MD Ot 721.3 01/28/2015 SHARIFA DC DO Ot 845.00 SPRAIN OF ANKLE NOS 01/28/2015 SHARIFA DC DO Ot 924.10 CONTUSION OF LOWER LEG 01/28/2015 SHARIFA DC DO Ot 959.7 LOWER LEG INJURY NOS 01/28/2015 SHARIFA DC DO Ot E000.8 OTHER EXTERNAL CAUSE STATUS 01/28/2015 SHARIFA DC DO Ot E849.0 ACCIDENT IN HOME 01/28/2015 SHARIFA DC DO Ot E880.9 FALL ON STAIR/STEP NEC 08/22/2015 [...] 08/22/2015 DORI ANAYA MD Ot Z79.899 OTHER GENERAL INTERNIST (CURRENT) DRUG THERAPY 09/14/2015 KYA MUNIZ, SANFORD L Ot E11.9 09/14/2015 KYA MUNIZ, SANFORD L Ot E11.9 09/15/2015 RAYA MUNIZ FACC, ALI FACP CCDS Ot E11.9 09/15/2015 RAYA MUNIZ FACC, ALI FACP CCDS Ot E66.01 09/15/2015 RAYA MUNIZ FACC, ALI FACP CCDS Ot E78.4 09/15/2015 RAYA MUNIZ FACC, ALI FACP CCDS Ot I10 09/15/2015 RAYA MUNIZ FACC, ALI FACP CCDS Ot R06.09 09/15/2015 RAYA MUNIZ FACC, ALI FACP CCDS Ot R07.89 09/15/2015 RAYA MUNIZ FACC, ALI FACP CCDS Ot E11.9 09/15/2015 RAYA MUNIZ FACC, ALI FACP CCDS Ot E66.01 09/15/2015 RAYA MUNIZ FACC, ALI FACP CCDS Ot E78.4 09/15/2015 RAYA MUNIZ FACC, ALI FACP CCDS Ot I10 09/15/2015 RAYA MUNIZ [facility], ALI FACP CCDS Ot R06.09 09/15/2015 RAYA MUNIZ FACC, ALI FACP CCDS Ot R07.89 09/15/2015 KYA MUNIZ, SANFORD L Ot E11.9 11/22/2015 KYA MUNIZ, SANFORD L Ot E11.9 11/22/2015 KYA MUNIZ, SANFORD L Ot E11.9 11/22/2015 RAYA TY, ALI FACP CCDS Ot E11.9 11/22/2015 RAYA MUNIZ FACC, ALI FACP CCDS Ot E66.01 11/22/2015 RAYA TY, ALI FACP CCDS Ot E78.4 11/22/2015 RAYA TY, ALI FACP CCDS Ot I10 11/22/2015 RAYA TYC, ALI FACP CCDS Ot R06.09 11/22/2015 RAYA TYC, ALI FACP CCDS Ot R07.89 11/22/2015 RAYA TYC, ALI FACP CCDS Ot E11.9 11/22/2015 RAYA TYC, ALI FACP CCDS Ot E66.01 11/22/2015 RAYA MD FACC, ALI FACP CCDS Ot E78.4 11/22/2015 RAYA MUNIZ FAC, ALI FACP CCDS Ot I10 11/22/2015 RAYA MUNIZ FAC, ALI FACP CCDS Ot R06.09 11/22/2015 RAYA MUNIZ FACC, ALI FACP CCDS Ot R07.89 11/28/2015 JOSIE GURROLA APRN Ot G47.33 OBSTRUCTIVE SLEEP APNEA (ADULT) (PEDIATR 11/28/2015 JOSIE GURROLA APRN Ot I10 ESSENTIAL (PRIMARY) HYPERTENSION 12/01/2015 KYA MUNIZ, SANFORD L Ot E11.9 12/01/2015 RAYA MUNIZ FAC, ALI FACP CCDS Ot E11.9 12/01/2015 RAYA MUNIZ FAC, ALI FACP CCDS Ot E66.01 12/01/2015 RAYA TY, ALI FACP CCDS Ot E78.4 12/01/2015 RAYA TY, ALI FACP CCDS Ot I10 12/01/2015 RAYA TY, ALI FACP CCDS Ot R06.09 12/01/2015 RAYA TY, ALI FACP CCDS Ot R07.89 12/01/2015 RAYA TY, ALI FACP CCDS Ot E11.9 12/01/2015 RAYA TY, ALI FACP CCDS Ot E66.01 12/01/2015 RAYA TY, ALI FACP CCDS Ot E78.4 12/01/2015 RAYA TY, ALI FACP CCDS Ot I10 12/01/2015 RAYA TY, ALI FACP CCDS Ot R06.09 12/01/2015 RAYA MUNIZ FAC, ALI FACP CCDS Ot R07.89 12/01/2015 RAYA MUNIZ FAC, ALI FACP CCDS Ot E11.9 12/01/2015 RAYA MUNIZ FACC, ALI FACP CCDS Ot E66.01 12/01/2015 RAYA TYC, ALI FACP CCDS Ot E78.4 12/01/2015 RAYA TYC, ALI FACP CCDS Ot I10 12/01/2015 RAYA TYC, ALI FACP CCDS Ot R06.09 12/01/2015 RAYA MUNIZ FACC, ALI FACP CCDS Ot R07.89 12/01/2015 KYA MUNIZ, SANFORD L Ot E11.9 12/05/2015 KYA MUNIZ, SANFORD L [...] FACP CCDS Ot R07.89 12/05/2015 RAYA MUNIZ [facility], ALI FACP CCDS Ot E11.9 12/05/2015 RAYA MUNIZ [facility], ALI FACP CCDS Ot E66.01 12/05/2015 RAYA MUNIZ [facility], ALI FACP CCDS Ot E78.4 12/05/2015 RAYA MUNIZ [facility], ALI FACP CCDS Ot I10 12/05/2015 RAYA MUNIZ [facility], ALI FACP CCDS Ot R06.09 12/05/2015 RAYA MUNIZ [facility], ALI FACP CCDS Ot R07.89 12/05/2015 JOSIE GURROLA 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 Ot G47.19 12/05/2015 IZABELA JOSIE E 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 Ot R06.09 12/05/2015 IZABELA JOSIE E 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 Ot R06.83 12/11/2015 IZABELA JOSIE E 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 Ot G47.19 12/11/2015 IZABELA JOSIE E 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 Ot R06.09 12/11/2015 NADIR GURROLAINE E 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 Ot R06.83 12/27/2015 KYA MUNIZ, SANFORD L Ot E11.9 12/27/2015 RAYA MUNIZ [facility], ALI FACP CCDS Ot E11.9 12/27/2015 RAYA MUNIZ [facility], ALI FACP CCDS Ot E66.01 12/27/2015 RAYA MUNIZ FAC, ALI FACP CCDS Ot E78.4 12/27/2015 RAYA MUNIZ [facility], ALI FACP CCDS Ot I10 12/27/2015 RAYA MUNIZ FACC, ALI FACP CCDS Ot R06.09 12/27/2015 RAYA MUNIZ FACC, ALI FACP CCDS Ot R07.89 12/27/2015 RAYA MUNIZ FACC, ALI FACP CCDS Ot E11.9 12/27/2015 RAYA TYC, ALI FACP CCDS Ot E66.01 12/27/2015 RAYA TYC, ALI FACP CCDS Ot E78.4 12/27/2015 RAYA MUNIZ FACC, ALI FACP CCDS Ot I10 12/27/2015 RAYA TYC, ALI FACP CCDS Ot R06.09 12/27/2015 RAYA MUNIZ FACC, ALI FACP CCDS Ot R07.89 01/15/2016 JOSIE GURROLA APRN Ot G47.19 01/15/2016 JOSIE GURROLA 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 Ot R06.09 01/15/2016 JOSIE GURROLA 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 Ot R06.83 01/16/2016 JOSIE GURROLA APRN Ot G47.33 OBSTRUCTIVE SLEEP APNEA (ADULT) (PEDIATR 01/16/2016 JOSIE GURROLA 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 Ot I10 ESSENTIAL (PRIMARY) HYPERTENSION 01/19/2016 KYA MUNIZ, SANFORD Ho Ot E11.9 01/19/2016 KYA MUNIZ, SANFORD Ho Ot E11.9 01/19/2016 RAYA MUNIZ FACC, ALI [...] FACP CCDS Ot R06.09 01/19/2016 RAYA MUNIZ FAC, ALI FACP CCDS Ot R07.89 01/19/2016 NADIR GURROLAINE E 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 Ot G47.19 01/19/2016 IZABELA JOSIE E 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 Ot R06.09 01/19/2016 IZABELA JOSIE E 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 Ot R06.83 01/23/2016 ALEXIS HOOVER MD (DDU) Ot J44.9 01/23/2016 ALEXIS HOOVER MD (DDU) Ot Z02.71 02/03/2016 NADIR GURROLAINE E 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 Ot G47.33 02/03/2016 IZABELA, JOSIE E 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 Ot I10 03/04/2016 IZABELA JOSIE E 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 Ot G47.19 OTHER HYPERSOMNIA 03/04/2016 IZABELANADIRJOSIE E 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 Ot R06.09 OTHER FORMS OF DYSPNEA 03/04/2016 IZABELANADIRJOSIE E 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 Ot R06.83 SNORING 03/04/2016 IZABELA JOSIE E 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 Ot F17.201 NICOTINE DEPENDENCE, UNSPECIFIED, IN REM 03/04/2016 IZABELANADIRJOSIE E 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 Ot J44.9 CHRONIC OBSTRUCTIVE PULMONARY DISEASE, U 03/04/2016 IZABELA JOSIE E 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 Ot J45.909 UNSPECIFIED ASTHMA, UNCOMPLICATED 04/15/2016 IZABELA, JOSIE E 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 Ot G47.19 OTHER HYPERSOMNIA 04/15/2016 IZABELANADIRJOSIE E 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 Ot R06.09 OTHER FORMS OF DYSPNEA 04/15/2016 IZABELANADIRJOSIE E 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 Ot R06.83 SNORING 04/15/2016 IZABELA, JOSIE E 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 Ot F17.201 NICOTINE DEPENDENCE, UNSPECIFIED, IN REM 04/15/2016 IZABELA, JOSIE E 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 Ot J44.9 CHRONIC OBSTRUCTIVE PULMONARY DISEASE, U 04/15/2016 IZABELA JOSIE E 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 Ot J45.909 UNSPECIFIED ASTHMA, UNCOMPLICATED 04/16/2016 IZABELA, JOSIE E 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 Ot G47.19 OTHER HYPERSOMNIA 04/16/2016 IZABELA JOSIE E 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 Ot R06.09 OTHER FORMS OF DYSPNEA 04/16/2016 IZABELA JOSIE E 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 Ot R06.83 SNORING 04/16/2016 JOSIE GURROLA APRN Ot F17.201 NICOTINE DEPENDENCE, UNSPECIFIED, IN REM 04/16/2016 JOSIE GURROLA APRN Ot J44.9 CHRONIC OBSTRUCTIVE PULMONARY DISEASE, U 04/16/2016 JOSIE GURORLA APRN Ot J45.909 UNSPECIFIED ASTHMA, UNCOMPLICATED 04/18/2016 NIKI AKINS 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 Ot M54.41 LUMBAGO WITH SCIATICA, RIGHT SIDE 04/18/2016 NIKI AKINS 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 Ot M54.42 LUMBAGO WITH SCIATICA, LEFT SIDE [...] ESSENTIAL (PRIMARY) HYPERTENSION 03/22/2017 RAYA MUNIZ FACC, ALI FACP CCDS [...] Ot E78.4 OTHER HYPERLIPIDEMIA 03/22/2017 RAYA MUNIZ [facility], ALI FACP CCDS Ot I10 ESSENTIAL (PRIMARY) HYPERTENSION 03/22/2017 RAYA MUNIZ [facility], ALI FACP CCDS Ot R06.09 OTHER FORMS OF DYSPNEA 03/22/2017 RAYA MUNIZ [facility], ALI FACP CCDS Ot R07.89 OTHER CHEST PAIN 03/22/2017 JOSIE GURROLA APRN Ot G47.19 OTHER HYPERSOMNIA 03/22/2017 JOSIE GURROLA APRN Ot R06.09 OTHER FORMS OF DYSPNEA 03/22/2017 JOSIE GURROLA 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 Ot R06.83 SNORING 03/22/2017 ALEXIS HOOVER MD (DDU) Ot J44.9 CHRONIC OBSTRUCTIVE PULMONARY DISEASE, U 03/22/2017 ALEXIS HOOVER MD (DDU) Ot Z02.71 ENCOUNTER FOR DISABILITY DETERMINATION 03/22/2017 NIKI AKINS APRN Ot M54.41 LUMBAGO WITH SCIATICA, RIGHT SIDE 03/22/2017 NIKI AKINS APRN Ot M54.42 LUMBAGO WITH SCIATICA, LEFT SIDE 03/22/2017 NIKI AKINS APRN Ot M54.6 PAIN IN THORACIC SPINE 03/22/2017 NIKI AKINS APRN Ot M54.41 LUMBAGO WITH SCIATICA, RIGHT SIDE 03/22/2017 DAO MICHAELS SHARIFA Sharp Ot E11.9 TYPE 2 DIABETES MELLITUS WITHOUT COMPLIC 03/22/2017 DAO MICHAELS SHARIFA Sharp Ot E66.9 OBESITY, UNSPECIFIED 03/22/2017 DAO MICHAELS SHARIFA K Ot I10 ESSENTIAL (PRIMARY) HYPERTENSION 03/22/2017 DAO MICHAELS SHARIFA Sharp Ot 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 03/22/2017 DAO MICHAELS SHARIFA Sharp Ot K21.9 GASTRO-ESOPHAGEAL REFLUX DISEASE WITHOUT 03/22/2017 DAO SHARIFA Sharp Ot K42.9 UMBILICAL HERNIA WITHOUT OBSTRUCTION OR 03/22/2017 DAO DO SHARIFA Sharp Ot K57.30 DVRTCLOS OF LG INT W/O PERFORATION OR AB 03/22/2017 DAO MICHAELS SHARIFA Sharp Ot K63.89 OTHER SPECIFIED DISEASES OF INTESTINE 03/22/2017 DAO MICHAELS SHARIFA Sharp Ot K86.9 DISEASE OF PANCREAS, UNSPECIFIED 03/22/2017 DAO MICHAELS SHARIFA Sharp Ot Z79.82 GENERAL INTERNIST (CURRENT) USE OF ASPIRIN 03/22/2017 DAO MICHAELS SHARIFA Sharp Ot Z79.84 JAIL (CURRENT) USE OF ORAL HYPOGLYC 03/22/2017 DAO MICHAELS SHARIFA Sharp Ot Z79.899 OTHER GENERAL INTERNIST (CURRENT) DRUG THERAPY 03/22/2017 DAO MICHAELS SHARIFA [...] RAYA MUNIZ FACC, ELISABETH TYP CCDS Ot E66.01 MORBID (SEVERE) OBESITY DUE TO EXCESS CA 03/22/2017 RAYA MUNIZ FACC, ELISABETH FACP CCDS Ot E78.4 OTHER HYPERLIPIDEMIA 03/22/2017 RAYA MUNIZ FACC, ELISABETH FACP CCDS Ot I10 ESSENTIAL (PRIMARY) HYPERTENSION 03/22/2017 RAYA MUNIZ FACC, ELISABETH FACP CCDS Ot R06.09 OTHER FORMS OF DYSPNEA 03/22/2017 RAYA TY, ALI FACP CCDS Ot R07.89 OTHER CHEST PAIN 03/22/2017 RAYA MUNIZ FACC, ALI FACP CCDS Ot E11.9 TYPE 2 DIABETES MELLITUS WITHOUT COMPLIC 03/22/2017 RAYA MUNIZ FACC, ALI FACP CCDS Ot E66.01 MORBID (SEVERE) OBESITY DUE TO EXCESS CA 03/22/2017 RAYA TY, ALI FACP CCDS Ot E78.4 OTHER HYPERLIPIDEMIA 03/22/2017 RAYA TY, ALI FACP CCDS Ot I10 ESSENTIAL (PRIMARY) HYPERTENSION 03/22/2017 RAYA MUNIZ FACC, ALI FACP CCDS Ot R06.09 OTHER FORMS OF DYSPNEA 03/22/2017 RAYA MUNIZ FACC, ALI FACP CCDS Ot R07.89 OTHER CHEST PAIN 03/22/2017 JOSIE GURROLA 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 Ot G47.19 OTHER HYPERSOMNIA 03/22/2017 JOSIE GURROLA 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 Ot R06.09 OTHER FORMS OF DYSPNEA 03/22/2017 JOSIE GURROLA 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 Ot R06.83 SNORING 03/22/2017 ALEXIS HOOVER MD (DDU) Ot J44.9 CHRONIC OBSTRUCTIVE PULMONARY DISEASE, U 03/22/2017 ALEXIS HOOVER MD (DDU) Ot Z02.71 ENCOUNTER FOR DISABILITY DETERMINATION 03/22/2017 NIKI AKINS 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 Ot M54.41 LUMBAGO WITH SCIATICA, RIGHT SIDE 03/22/2017 NIKI AKINS 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 Ot M54.42 LUMBAGO WITH SCIATICA, LEFT SIDE 03/22/2017 NIKI AKINS 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 Ot M54.6 PAIN IN THORACIC SPINE 03/22/2017 NIKI AKINS 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 Ot M54.41 LUMBAGO WITH SCIATICA, RIGHT SIDE 03/24/2017 DAO DOMARKA K Ot E11.9 TYPE 2 DIABETES MELLITUS WITHOUT COMPLIC 03/24/2017 DAOPaty MICHAELS SHARIFA K Ot E66.9 OBESITY, UNSPECIFIED 03/24/2017 DAO DO SHARIFA K Ot I10 ESSENTIAL (PRIMARY) HYPERTENSION 03/24/2017 DAOPaty MICHAELS SHARIFA K Ot 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 03/24/2017 SHARIFA DC DO Ot K21.9 GASTRO-ESOPHAGEAL REFLUX DISEASE WITHOUT 03/24/2017 DAOSHARIFA Newman DO Ot K42.9 UMBILICAL HERNIA WITHOUT OBSTRUCTION OR 03/24/2017 SHARIFA DC DO Ot K57.30 DVRTCLOS OF LG INT W/O PERFORATION OR AB 03/24/2017 DAO SHARIFA MICHAELS Ot K63.89 OTHER SPECIFIED DISEASES OF INTESTINE 03/24/2017 SHARIFA DC DO, Ot K86.9 DISEASE OF PANCREAS, UNSPECIFIED 03/24/2017 DAO SHARIFA MICHAELS Ot Z79.82 GENERAL INTERNIST (CURRENT) USE OF ASPIRIN 03/24/2017 DAO SHARIFA MICHAELS Ot Z79.84 JAIL (CURRENT) USE OF ORAL HYPOGLYC 03/24/2017 DAO SHARIFA MICHAELS Ot Z79.899 OTHER GENERAL INTERNIST (CURRENT) DRUG THERAPY 03/24/2017 DAO SHARIFA MICHAELS [...] STRIKE 04/10/2017 SHARIFA DC DO Ot Y92.[address] IN [facility] (PRIVATE 04/10/2017 SHARIFA DC DO Ot Y99.8 OTHER EXTERNAL CAUSE STATUS 04/10/2017 SHARIFA DC DO Ot Z79.82 JAIL (CURRENT) USE OF ASPIRIN 04/10/2017 SHARIFA DC DO Ot Z79.84 JAIL (CURRENT) USE OF ORAL HYPOGLYC 04/10/2017 SHARIFA DC DO Ot Z79.899 OTHER GENERAL INTERNIST (CURRENT) DRUG THERAPY 04/10/2017 SANFORD BOLAND MD Ot E11.9 TYPE 2 DIABETES MELLITUS WITHOUT COMPLIC 04/10/2017 SANFORD BOLAND MD Ot E11.9 TYPE 2 DIABETES MELLITUS WITHOUT COMPLIC 04/10/2017 RAYA MUNIZ FAC, ALI FACP CCDS Ot E11.9 TYPE 2 DIABETES MELLITUS WITHOUT COMPLIC 04/10/2017 RAYA MUNIZ FACC, ALI FACP CCDS Ot E66.01 MORBID (SEVERE) OBESITY DUE TO EXCESS CA 04/10/2017 RAYA TYC, ALI FACP CCDS Ot E78.4 OTHER HYPERLIPIDEMIA [...] R06.09 OTHER FORMS OF DYSPNEA 04/10/2017 RAYA TYC, ALI FACP CCDS Ot R07.89 OTHER CHEST PAIN 04/10/2017 JOSIE GURROLA APRN Ot G47.19 OTHER HYPERSOMNIA 04/10/2017 JOSIE GURROLA APRN Ot R06.09 OTHER FORMS OF DYSPNEA 04/10/2017 JOSIE GURROLA APRN Ot R06.83 SNORING 04/10/2017 KIKO MUNIZ, ALEXIS [place] ([facility]) Ot J44.9 CHRONIC OBSTRUCTIVE PULMONARY DISEASE, U 04/10/2017 KIKO MUNIZ, ALEXIS [place] ([facility]) Ot Z02.71 ENCOUNTER FOR DISABILITY DETERMINATION 04/10/2017 AKINSNIKI Tripathi LIZZIE Ot M54.41 LUMBAGO WITH SCIATICA, RIGHT SIDE 04/10/2017 AKINSNIKI 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 Ot M54.42 LUMBAGO WITH SCIATICA, LEFT SIDE 04/10/2017 MABLE NIKI Aubrie SAMUEL Ot M54.6 PAIN IN THORACIC SPINE 04/10/2017 MABLENIKI Aubrie 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 Ot M54.41 LUMBAGO WITH SCIATICA, RIGHT SIDE 04/13/2017 SHARIFA DC DO Ot E11.9 TYPE 2 DIABETES MELLITUS WITHOUT COMPLIC 04/13/2017 SHARIFA DC DO Ot E66.9 OBESITY, UNSPECIFIED 04/13/2017 DAO MICHAELS SHARIFA K Ot I10 ESSENTIAL (PRIMARY) HYPERTENSION 04/13/2017 SHARIFA DC DO Ot M51.36 OTHER INTERVERTEBRAL DISC DEGENERATION, 04/13/2017 SHARIFA DC DO Ot S80.11XA CONTUSION OF RIGHT LOWER LEG, INITIAL EN 04/13/2017 SHARIFA DC DO Ot S93.501A UNSPECIFIED SPRAIN OF RIGHT GREAT TOE, I 04/13/2017 SHARIFA DC DO Ot S99.921A UNSPECIFIED INJURY OF RIGHT FOOT, INITIA 04/13/2017 MARK DC DOA Aron Ot W01.0XXA FALL SAME LEV FROM SLIP/TRIP W/O STRIKE 04/13/2017 SHARIFA DC DO Ot Y92.[address] [facility] [address] [facility] 04/13/2017 DAO MICHAELS SHARIFA Aron Ot Y99.8 OTHER EXTERNAL CAUSE STATUS 04/13/2017 SHARIFA DC DO Ot Z79.82 GENERAL INTERNIST (CURRENT) USE OF ASPIRIN 04/13/2017 SHARIFA DC DO Ot Z79.84 GENERAL INTERNIST (CURRENT) USE OF ORAL HYPOGLYC 04/13/2017 SHARIFA DC DO Ot Z79.899 OTHER JAIL (CURRENT) DRUG THERAPY 04/23/2017 SANFORD BOLAND MD Ot E11.9 TYPE 2 DIABETES MELLITUS WITHOUT COMPLIC 04/23/2017 SANFORD BOLAND MD Ot E11.9 TYPE 2 DIABETES MELLITUS WITHOUT COMPLIC 04/23/2017 RAYA MUNIZ FAC, ALI FACP CCDS Ot E11.9 TYPE 2 DIABETES MELLITUS WITHOUT COMPLIC 04/23/2017 RAYA MD FACC, ALI FACP CCDS Ot E66.01 MORBID (SEVERE) OBESITY DUE TO EXCESS CA 04/23/2017 RAYA MUNIZ FACC, ALI FACP CCDS Ot E78.4 OTHER HYPERLIPIDEMIA 04/23/2017 RAYA MUNIZ FACC, ALI FACP CCDS [...] DUE TO EXCESS CA 04/23/2017 RAYA MUNIZ FAC, ALI FACP CCDS Ot E78.4 OTHER HYPERLIPIDEMIA 04/23/2017 RAYA MUNIZ FAC, ALI FACP CCDS Ot I10 ESSENTIAL (PRIMARY) HYPERTENSION 04/23/2017 RAYA MUNIZ FAC, ALI FACP CCDS Ot R06.09 OTHER FORMS OF DYSPNEA 04/23/2017 RAYA MUNIZ [facility], ALI FACP CCDS Ot R07.89 OTHER CHEST PAIN 04/23/2017 JOSIE GURROLA APRN Ot G47.19 OTHER HYPERSOMNIA 04/23/2017 JOSIE GURROLA APRN Ot R06.09 OTHER FORMS OF DYSPNEA 04/23/2017 JOSIE GURROLA 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 Ot R06.83 SNORING 04/23/2017 ALEXIS HOOVER MD (DDU) Ot J44.9 CHRONIC OBSTRUCTIVE PULMONARY DISEASE, U 04/23/2017 ALEXIS HOOVER MD (DDU) Ot Z02.71 ENCOUNTER FOR DISABILITY DETERMINATION 04/23/2017 NIKI AKINS APRN Ot M54.41 LUMBAGO WITH SCIATICA, RIGHT SIDE 04/23/2017 NIKI AKINS APRN Ot M54.42 LUMBAGO WITH SCIATICA, LEFT SIDE 04/23/2017 NIKI AKINS 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 Ot M54.6 PAIN IN THORACIC SPINE 04/23/2017 NIKI AKINS APRN Ot M54.41 LUMBAGO WITH SCIATICA, RIGHT SIDE 04/23/2017 DAO SHARIFA K Ot E11.9 TYPE 2 DIABETES MELLITUS WITHOUT COMPLIC 04/23/2017 DAO SHARIFA Aron Ot E66.9 OBESITY, UNSPECIFIED 04/23/2017 DAO SHARIFA K Ot I10 ESSENTIAL (PRIMARY) HYPERTENSION 04/23/2017 SHARIFA DC DO Ot M51.36 OTHER INTERVERTEBRAL DISC DEGENERATION, 04/23/2017 DAO SHARIFA Ot S80.11XA CONTUSION OF RIGHT LOWER LEG, INITIAL EN 04/23/2017 DAO SHARIFA Ot S93.501A UNSPECIFIED SPRAIN OF RIGHT GREAT TOE, I 04/23/2017 SHARIFA DC DO Ot S99.921A UNSPECIFIED INJURY OF RIGHT FOOT, INITIA 04/23/2017 DAO SHARIFA K Ot W01.0XXA FALL SAME LEV FROM SLIP/TRIP W/O STRIKE 04/23/2017 SHARIFA DC DO Ot Y92.[address] [facility] [address] [facility]IVATE 04/23/2017 DAO MICHAELS SHARIFA Aron Ot Y99.8 OTHER EXTERNAL CAUSE STATUS 04/23/2017 SHARIFA DC DO Ot Z79.82 JAIL (CURRENT) USE OF ASPIRIN 04/23/2017 SHARIFA DC DO Ot Z79.84 GENERAL INTERNIST (CURRENT) USE OF ORAL HYPOGLYC 04/23/2017 SHARIFA DC DO Ot Z79.899 OTHER JAIL (CURRENT) DRUG THERAPY 04/23/2017 NIKI AKINS APRN Ot M54.41 LUMBAGO WITH SCIATICA, RIGHT SIDE 04/23/2017 NIKI AKINS APRN Ot M54.42 LUMBAGO WITH SCIATICA, LEFT SIDE 04/23/2017 NIKI AKINS APRN Ot M54.6 PAIN IN THORACIC SPINE 04/24/2017 NIKI AKINS APRN Ot M54.41 LUMBAGO WITH SCIATICA, RIGHT SIDE 04/24/2017 NIKI AKINS APRN Ot M54.42 LUMBAGO WITH SCIATICA, LEFT SIDE 04/24/2017 AKINS, NIKI R 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 Ot M54.6 PAIN IN THORACIC SPINE 04/28/2017 KYA MUNIZ, SANFORD Ho Ot E11.9 TYPE [...] R07.89 OTHER CHEST PAIN 04/28/2017 JOSIE GURROLA 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 Ot G47.19 OTHER HYPERSOMNIA 04/28/2017 JOSIE GURROLA 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 Ot R06.09 OTHER FORMS OF DYSPNEA 04/28/2017 JOSIE GURROLA 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 Ot R06.83 SNORING 04/28/2017 ALEXIS HOOVER MD (ADAN) Ot J44.9 CHRONIC OBSTRUCTIVE PULMONARY DISEASE, U 04/28/2017 ALEXIS HOOVER MD (ADAN) Ot Z02.71 ENCOUNTER FOR DISABILITY DETERMINATION 04/28/2017 NIKI AKINS APRN Ot M54.41 LUMBAGO WITH SCIATICA, RIGHT SIDE 04/28/2017 NIKI AKINS 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 Ot M54.42 LUMBAGO WITH SCIATICA, LEFT SIDE 04/28/2017 NIKI AKINS 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 Ot M54.6 PAIN IN THORACIC SPINE 04/28/2017 NIKI AKINS 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 Ot M54.41 LUMBAGO WITH SCIATICA, RIGHT SIDE 05/01/2017 ANILA LAWRENCE DO Ot K21.9 GASTRO-ESOPHAGEAL REFLUX DISEASE WITHOUT 05/01/2017 ANILA LAWRENCE DO Ot Z01.818 ENCOUNTER FOR OTHER PREPROCEDURAL EXAMIN 05/01/2017 ANILA LAWRENCE DO Ot Z83.79 FAMILY HISTORY OF OTHER DISEASES OF THE 05/06/2017 JOSIE GURROLA APRN Ot G47.19 OTHER HYPERSOMNIA 05/06/2017 JOSIE GURROLA 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 Ot R06.09 OTHER FORMS OF DYSPNEA 05/06/2017 JOSIE GURROLA APRN Ot R06.83 SNORING 05/06/2017 JOSIE GURROLA APRN Ot F17.201 NICOTINE DEPENDENCE, UNSPECIFIED, IN REM 05/06/2017 JOSIE GURROLA 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 Ot J44.9 CHRONIC OBSTRUCTIVE PULMONARY DISEASE, U 05/06/2017 JOSIE GURROLA 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 Ot J45.909 UNSPECIFIED ASTHMA, UNCOMPLICATED 05/06/2017 ANILA LAWRENCE DO Ot R07.9 CHEST PAIN, UNSPECIFIED 05/06/2017 ANILA LAWRENCE DO Ot Z01.818 ENCOUNTER FOR OTHER PREPROCEDURAL EXAMIN 05/06/2017 ANILA LAWRENCE DO Ot Z86.010 PERSONAL HISTORY OF COLONIC POLYPS 05/06/2017 NIKI AKINS 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 Ot M54.41 LUMBAGO WITH SCIATICA, RIGHT SIDE 05/06/2017 NIKI AKINS 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 Ot M54.42 LUMBAGO WITH SCIATICA, LEFT SIDE 05/06/2017 NIKI AKINS 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 Ot M54.6 PAIN IN THORACIC SPINE 05/06/2017 JOSIE GURROLA 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 Ot G47.19 OTHER HYPERSOMNIA 05/06/2017 JOSIE GURROLA 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 Ot R06.09 OTHER FORMS OF DYSPNEA 05/06/2017 JOSIE GURROLA 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 Ot R06.83 SNORING 05/06/2017 JOSIE GURROLA APRN Ot F17.201 NICOTINE DEPENDENCE, UNSPECIFIED, IN REM 05/06/2017 JOSIE GURROLA APRN Ot J44.9 CHRONIC OBSTRUCTIVE PULMONARY DISEASE, U 05/06/2017 JOSIE GURROLA APRN Ot J45.909 UNSPECIFIED ASTHMA, UNCOMPLICATED 05/06/2017 ANILA LAWRENCE DO Ot R07.9 CHEST PAIN, UNSPECIFIED 05/06/2017 ANILA LAWRENCE DO Ot Z01.818 ENCOUNTER FOR OTHER PREPROCEDURAL EXAMIN 05/06/2017 ANILA LAWRENCE DO Ot Z86.010 PERSONAL HISTORY OF COLONIC POLYPS 05/06/2017 NIKI AKINS APRN Ot M54.41 LUMBAGO WITH SCIATICA, RIGHT SIDE 05/06/2017 NIKI AKINS APRN Ot M54.42 LUMBAGO WITH SCIATICA, LEFT SIDE 05/06/2017 NIKI AKINS APRN Ot M54.6 PAIN IN THORACIC SPINE 05/06/2017 ANILA LAWRENCE DO Ot D12.8 BENIGN NEOPLASM OF RECTUM 05/06/2017 ANILA LAWRENCE DO Ot E11.9 TYPE 2 DIABETES MELLITUS WITHOUT COMPLIC 05/06/2017 ANILA LAWRENCE DO Ot G47.30 SLEEP APNEA, UNSPECIFIED 05/06/2017 ANILA LAWRENCE DO Ot I10 ESSENTIAL (PRIMARY) HYPERTENSION 05/06/2017 ANILA LAWERNCE DO Ot J44.9 CHRONIC OBSTRUCTIVE PULMONARY DISEASE, [...] W/O PERFORATION OR AB 05/06/2017 ANILA LAWRENCE DO, Ot K59.00 CONSTIPATION, UNSPECIFIED 05/06/2017 ANILA LAWRENCE DO Ot K62.1 RECTAL POLYP 05/06/2017 ANILA LAWRENCE DO Ot Z79.84 GENERAL INTERNIST (CURRENT) USE OF ORAL HYPOGLYC 05/06/2017 ANILA LAWRENCE DO Ot Z79.899 OTHER JAIL (CURRENT) DRUG THERAPY 05/08/2017 NIKI AKINS APRN Ot M54.41 LUMBAGO WITH SCIATICA, RIGHT SIDE 05/08/2017 NIKI AKINS 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 Ot M54.42 LUMBAGO WITH SCIATICA, LEFT SIDE [...] POLYP 05/13/2017 ANILA LAWRENCE DO Ot Z79.84 GENERAL INTERNIST (CURRENT) USE OF ORAL HYPOGLYC 05/13/2017 ANILA LAWRENCE DO Ot Z79.899 OTHER JAIL (CURRENT) DRUG THERAPY 05/16/2017 SANFORD BOLAND MD Ot E11.9 TYPE [...] I10 ESSENTIAL (PRIMARY) HYPERTENSION 05/16/2017 RAYA MUNIZ FAC, ALI FACP CCDS Ot R06.09 OTHER FORMS OF DYSPNEA 05/16/2017 RAYA MUNIZ FAC, ALI FACP CCDS Ot R07.89 OTHER CHEST PAIN 05/16/2017 JOSIE GURROLA APRN Ot G47.19 OTHER HYPERSOMNIA 05/16/2017 JOSIE GURROLA APRN Ot R06.09 OTHER FORMS OF DYSPNEA 05/16/2017 JOSIE GURROLA APRN Ot R06.83 SNORING 05/16/2017 ALEXIS HOOVER MD (ADAN) Ot J44.9 CHRONIC OBSTRUCTIVE PULMONARY DISEASE, U 05/16/2017 ALEXIS HOOVER MD (ADAN) Ot Z02.71 ENCOUNTER FOR DISABILITY DETERMINATION 05/16/2017 NIKI AKINS 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 Ot M54.41 LUMBAGO WITH SCIATICA, RIGHT SIDE 05/16/2017 NIKI AKINS 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 Ot M54.42 LUMBAGO WITH SCIATICA, LEFT SIDE 05/16/2017 NIKI AKINS 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 Ot M54.6 PAIN IN THORACIC SPINE 05/16/2017 NIKI AKINS 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 Ot M54.41 LUMBAGO WITH SCIATICA, RIGHT SIDE 05/18/2017 NILAM WILKERSON MD Ot E11.9 TYPE 2 DIABETES MELLITUS WITHOUT COMPLIC 05/18/2017 NILAM WILKERSON MD Ot E78.00 PURE HYPERCHOLESTEROLEMIA, UNSPECIFIED 05/18/2017 NILAM WILKERSON MD Ot E87.2 ACIDOSIS 05/18/2017 NILAM WILKERSON MD Ot G47.30 SLEEP APNEA, UNSPECIFIED 05/18/2017 NILAM WILKERSON MD Ot I10 ESSENTIAL (PRIMARY) HYPERTENSION 05/18/2017 NILAM WILKERSON MD Ot 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 05/18/2017 NILAM WILKERSON MD Ot I95.9 HYPOTENSION, UNSPECIFIED 05/18/2017 NILAM WILKERSON MD Ot J44.9 CHRONIC OBSTRUCTIVE PULMONARY DISEASE, U 05/18/2017 NILAM WILKERSON MD Ot J45.909 UNSPECIFIED ASTHMA, UNCOMPLICATED 05/18/2017 NILAM WILKERSON MD Ot K21.9 GASTRO-ESOPHAGEAL REFLUX DISEASE WITHOUT 05/18/2017 NILAM WILKERSON MD Ot K86.9 DISEASE OF PANCREAS, UNSPECIFIED 05/18/2017 NILAM WILKERSON MD Ot N39.0 URINARY TRACT INFECTION, SITE NOT SPECIF 05/20/2017 NIKI AKINS APRN Ot E11.9 TYPE 2 DIABETES MELLITUS WITHOUT COMPLIC 05/20/2017 NIKI AKINS APRN Ot 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 05/20/2017 NIKI AKINS APRN Ot K86.9 DISEASE OF PANCREAS, UNSPECIFIED 05/28/2017 NIKI AKINS 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 Ot E11.9 TYPE 2 DIABETES MELLITUS WITHOUT COMPLIC 05/28/2017 NIKI AKINS 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 Ot 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 05/28/2017 NIIK AKINS 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 Ot K86.9 DISEASE OF PANCREAS, UNSPECIFIED 05/28/2017 NIKI AKINS R 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 Ot E11.9 TYPE 2 DIABETES MELLITUS WITHOUT COMPLIC 05/28/2017 NIKI AKINS 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 Ot 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 05/28/2017 NIKI AKINS R 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 Ot K86.9 DISEASE OF PANCREAS, UNSPECIFIED 08/18/2017 NIKI AKINS R 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 Ot D73.9 DISEASE OF SPLEEN, UNSPECIFIED 08/18/2017 NIKI AKINS R 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 Ot K86.89 OTHER SPECIFIED DISEASES OF PANCREAS 09/04/2017 NIKI AKINS R 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 Ot D73.9 DISEASE OF SPLEEN, UNSPECIFIED 09/04/2017 NIKI AKINS R 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 Ot K86.89 OTHER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 ratio 13.9 % 10.0-14.5 Automated blood platelet count (count/volume) 333 10*3/uL 130-400 Automated blood platelet mean volume measurement 8.3 [foz_us] 7.4-10.4 Automated blood neutrophils/100 leukocytes 56 % 42-75 Automated blood lymphocytes/100 leukocytes 31 % 12-44 Blood monocytes/100 leukocytes 9 % 0-12 Automated blood eosinophils/100 leukocytes 3 % 0-10 Automated blood basophils/100 leukocytes 0 % 0-10 Blood neutrophils automated count (number/volume) 3.2 10*3 1.8-7.8 Blood lymphocytes automated count (number/volume) 1.8 10*3 1.0-4.0 Blood monocytes automated count (number/volume) 0.5 10*3 0.0-1.0 Automated eosinophil count 0.2 10*3/uL 0.0-0.3 Automated blood basophil count (count/volume) 0.0 10*3/uL 0.0-0.1 Comprehensive metabolic panel - 01/22/18 15:04 Serum or plasma sodium measurement (moles/volume) 138 mmol/L 135-145 Serum or plasma potassium measurement (moles/volume) 4.0 mmol/L 3.6-5.0 Serum or plasma chloride measurement (moles/volume) 103 mmol/L 98-107 Carbon dioxide 26 mmol/L 21-32 Serum or plasma anion gap determination (moles/volume) 9 mmol/L 5-14 Serum or plasma urea nitrogen measurement (mass/volume) 15 mg/dL 7-18 Serum or plasma creatinine measurement (mass/volume) 1.22 mg/dL 0.60-1.30 Serum or plasma urea nitrogen/creatinine mass ratio 12 NRG Serum or plasma creatinine measurement with calculation of estimated glomerular filtration rate 60 NRG Serum or plasma glucose measurement (mass/volume) 150 mg/dL 70-105 Serum or plasma calcium measurement (mass/volume) 9.3 mg/dL 8.5-10.1 Serum or plasma total bilirubin measurement (mass/volume) 0.5 mg/dL 0.1-1.0 Serum or plasma alkaline phosphatase measurement (enzymatic activity/volume) 69 U/L 40-136 Serum or plasma aspartate aminotransferase measurement (enzymatic activity/ volume) 30 U/L 5-34 Serum or plasma alanine aminotransferase measurement (enzymatic activity/volume ) 23 U/L 0-55 Serum or plasma protein measurement (mass/volume) 7.3 g/dL 6.4-8.2 Serum or plasma albumin measurement (mass/volume) 4.3 g/dL 3.2-4.5 Magnesium - 01/22/18 15:04 Magnesium 2.1 mg/dL 1.8-2.4 Serum or plasma lithium measurement (moles/volume) - 01/22/18 15:04 BNP level < pg/mL <100.0 Serum or plasma troponin i.cardiac measurement (mass/volume) - 01/22/18 15:04 Serum or plasma troponin i.cardiac measurement (mass/volume) < ng/ mL <0.30 Capillary blood glucose measurement by glucometer (mass/volume) - 01/22/18 15: 18 Capillary blood glucose measurement by glucometer (mass/volume) 138 mg/dL 70-110 Complete urinalysis with reflex to culture - 01/22/18 16:13 Urine color determination YELLOW NRG Urine clarity determination CLEAR NRG Urine pH measurement by test strip 5 5-9 Specific gravity of urine by test strip 1.015 1.016- 1.022 Urine protein assay by test strip, semi-quantitative NEGATIVE NEGATIVE Urine glucose detection by automated test strip NEGATIVE NEGATIVE Erythrocytes detection in urine sediment by light microscopy NEGATIVE NEGATIVE Urine ketones detection by automated test strip 1+ NEGATIVE Urine nitrite detection by test strip NEGATIVE NEGATIVE Urine total bilirubin detection by test strip NEGATIVE NEGATIVE Urine urobilinogen measurement by automated test strip (mass/volume) NORMAL NORMAL Urine leukocyte esterase detection by dipstick 1+ NEGATIVE Automated urine sediment erythrocyte count by microscopy (number/high power field) NONE NRG Automated urine sediment leukocyte count by microscopy (number/high power field ) RARE NRG Bacteria detection in urine sediment by light microscopy NEGATIVE NRG Squamous epithelial cells detection in urine sediment by light microscopy 2-5 NRG Crystals detection in urine sediment by light microscopy NONE NRG Casts detection in urine sediment by light microscopy PRESENT NRG Mucus detection in urine sediment by light microscopy NEGATIVE NRG Complete urinalysis with reflex to culture NO NRG Hyaline casts detection in urine sediment by light microscopy >50 [facility] PATHOLOGY REPORT (TISSUE PAHOLOGY) - 02/09/18 17:57 CLINICAL INFORMATION [facility] PATHOLOGIST [facility] TISSUE, SPECIMEN A - 02/09/18 17:57 A SOURCE NR A GROSS DESCRIPTION [facility] A DIAGNOSIS [facility] [id number] - 09/18/18 15:06 [id number] SPECIMEN AVAILABLE [facility] Comprehensive Metabolic Panel - 12/16/18 14:42 Albumin 4.4 g/dL 3.6-5.1 ALP 93 U/L 35-130 ALT 21 U/L 6-45 Anion Gap 14 6-14 AST 30 U/L 2-40 BUN 18 mg/dL 5-25 Calcium 9.9 mg/dL 8.3-10.4 Chloride 102 mmol/L 95-114 CO2 25 mEq/L 22-33 Creat 0.89 mg/dL 0.50-1.50 eGFR 86 mL/min/1.73m2 >59 Globulin 3.1 g/dL 2.3-3.5 Glucose 107 mg/dL 70-110 Osmo 283 280-295 Potassium 4.7 mmol/L 3.5-5.3 Sodium 136 mmol/L 134-148 TBil 0.4 mg/dL 0.2-1.2 TP 7.5 g/dL 6.0-8.3 Lipid Panel - 12/16/18 14:42 C/HDL 4.1 3.7-6.7 Cholesterol 203 mg/dL 100-240 HDL 49 mg/dL 30-85 LDL-Calculated 99 mg/dL 0-100 Trig 276 mg/dL 35-160 VLDL 55 mg/dL 0-42 Magnesium - 01/18/19 11:12 Mg++ 2.1 mg/dL 1.6-2.6 Encounters ACCT No. Visit Date/Time Discharge Status Pt. Type Provider Facility Loc./Unit Complaint [id number] 01/12/2019 09:28:00 01/12/2019 23:59:59 CLS Preadmit JOSIE GURROLA APRN [facility] RAD SMOKING HISTORY, COPD [id number] 01/05/2019 07:52:00 01/05/2019 23:59:59 CLS Preadmit JOSIE GURROLA APRN [facility] RT ASTHMA,COPD [id number] 01/05/2019 07:49:00 01/05/2019 23:59:59 CLS Preadmit JOSIE GURROLA APRN [facility] RT ASTHMA,MARY,COPD [id number] 12/24/2018 10:03:00 12/24/2018 23:59:59 CLS Outpatient SANFORD BOLAND MD [facility] RAD PANCREATIC MASS [id number] 09/18/2018 14:31:00 09/18/2018 18:55:00 DIS Emergency ADEOLA POTTER [facility] ER UPPER CHEST AND WRIST INJ [id number] 01/22/2018 14:27:00 01/22/2018 17:32:00 DIS Emergency BG DOUGHERTY MD [facility] ER LOW BLOOD PRESSURE LIGHTHEADED/DIZZY WEAK NAUSEA [id number] 08/15/2017 07:40:00 08/15/2017 23:59:59 CLS Outpatient NIKI AKINS APRN [facility] RAD I72.8 [id number] 05/19/2017 07:54:00 05/19/2017 23:59:59 CLS Outpatient NIKI AKINS APRN [facility] RAD E11.9 TYPE 2 DIABETES [id number] 05/16/2017 18:05:00 05/18/2017 14:25:00 DIS Inpatient NILAM WILKERSON MD [facility] 4TH SEPSIS [id number] 05/06/2017 13:15:00 05/06/2017 16:13:00 DIS Outpatient ANILA LAWRENCE DO [facility] ENDO HX DIVERTICULITIS;GERD [id number] 05/01/2017 06:29:00 05/01/2017 15:27:00 DIS Outpatient ANILA LAWRENCE DO [facility] PREOP HX DIVERTICULITIS; GERD [id number] 04/10/2017 21:05:00 04/10/2017 23:00:00 DIS Emergency SHARIFA DC DO [facility] ER FALL INJURY TO RIGHT LEG [id number] 03/22/2017 16:25:00 03/22/2017 19:59:00 DIS Emergency SHARIFA DC DO [facility] ER STOMACH ISSUES [id number] 06/05/2016 12:59:00 06/05/2016 23:59:59 CLS Outpatient NIKI AKINS APRN [facility] RAD SCIATIC NERVE PAIN [id number] 04/23/2016 11:51:00 04/23/2016 15:13:00 DIS Outpatient ANILA LAWRENCE DO [facility] SDC CHEST PAIN, HX POLPYS [id number] 04/18/2016 05:37:00 04/18/2016 23:59:59 CLS Outpatient LAWRENCE ANILA MICHAELS [facility] PREOP CHEST PAIN,HX POLPYS [id number] 04/16/2016 10:05:00 04/16/2016 23:59:59 CLS Outpatient NIKI AKINS 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 [facility] RAD PAIN IN THORACIC SPINE,[facility] WITH SCIATICA [id number] 01/19/2016 11:25:00 01/19/2016 23:59:59 CLS Outpatient ALEXIS HOOVER MD (DDU) [facility] RT COPD [id number] 01/15/2016 20:17:00 01/16/2016 07:00:00 DIS Outpatient JOSIE GURROLA APRN [facility] SLEEP OBSTRUCTIVE SLEEP APNEA [id number] 01/15/2016 09:09:00 01/15/2016 23:59:59 CLS Outpatient JOSIE GURROLA APRN [facility] RAD COPD W/CHRONIC BRONCHITIS,ASTHMA [id number] 12/04/2015 14:23:00 12/04/2015 23:59:59 CLS Outpatient JOSIE GURROLA APRN [facility] RT AVELAR, EXCESSIVE DATYIME SLEEPINESS, SNORING [id number] 11/27/2015 20:09:00 11/28/2015 06:25:00 DIS Outpatient JOSIE GURROLA APRN [facility] SLEEP OBSERVED APNEAS, SNORING, CHOKING/GASPIN DURING SL [id number] 09/25/2015 12:11:00 09/25/2015 23:59:59 CLS Outpatient ELISABETH DOS SANTOS MD, FACC, FACP CCDS [facility] CARD CHEST DISCOMFORT [id number] 09/14/2015 07:49:00 09/14/2015 23:59:59 CLS Outpatient ELISABETH DOS SANTOS MD, FACC, FACP CCDS [facility] CARD CHEST DISCOMFORT [id number] 08/22/2015 07:05:00 08/22/2015 23:59:59 CLS Outpatient SANFORD BOLAND MD [facility] LABNPT ADD ON LAB [id number] 08/22/2015 07:05:00 08/22/2015 23:59:59 CLS Outpatient SANFORD BOLAND MD [facility] LABT DIABETES MELITIUS [id number] 08/22/2015 06:59:00 08/22/2015 08:28:00 DIS Emergency DORI ANAYA MD [facility] ER CP [id number] 01/28/2015 08:27:00 01/28/2015 10:05:00 DIS Emergency DAO DO, SHARIFA K [facility] ER LEFT LEG PAIN [id number] 05/25/2013 17:25:00 05/25/2013 23:59:59 CLS Outpatient SANFORD BOLAND MD [facility] RAD [id number] 01/18/2019 12:30:00 01/18/2019 23:59:00 DIS Outpatient Kristen Tesfaye [id number] 12/16/2018 14:41:00 12/16/2018 23:59:00 DIS Outpatient SANFORD BOLAND [id number] 11/07/2018 13:55:00 11/07/2018 23:59:59 CLS Outpatient KEO LINDQUIST [facility] [id number] 02/09/2018 16:40:00 Document Registration [id number] 12/02/2017 13:40:00 Document Registration
--- NOTE | 2019-01-25 18:12 | ED Chest Pain ---
General Stated Complaint: CHEST PAIN Source: patient Exam Limitations: no limitations History of Present Illness Date Seen by Provider: Jan 25, 2019 Time Seen by Provider: 17:55 Initial Comments PT ARRIVES VIA POV FROM RESPIRATORY THERAPY DEPT, WHERE HE WAS HAVING " BREATHING TESTS" DONE--HAS HAD BEFORE AND WAS GETTING RE-EVALUATED PT HAS KNOWN COPD AND USES ALBUTEROL DAILY, AND WAS GETTING AN ALBUTEROL NEB TREATMENT WHEN PAIN BEGAN 10 MINUTES PRIOR TO ARRIVAL HAS NEVER HAD PROBLEMS WITH CHEST PAIN WHEN USING ALBUTEROL C/O RIGHT SIDED CHEST PAIN--RIGHT OF STERNUM PAIN IS GONE NOW WAS SHORT OF BREATH FOR THE TEST, AND STILL FEELS A LITTLE SHORT OF BREATH, BUT IS ALWAYS SHORT OF BREATH NO SWEATS NO SWELLING IN LEGS/FEET OR PAIN IN CALVES NO NAUSEA/VOMITING NO DIZZINESS NO PALPITATIONS NO FEVER OR RECENT ILLNESS HAS HX OF HTN, AND HIGH CHOLESTEROL BUT NEVER HAD ANY PROBLEMS WITH HIS HEART PCP: DR. 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 AVENDANO Allergies and Home Medications Allergies Coded Allergies: No Known Drug Allergies (Unverified , 05/01/17) Home Medications Albuterol Sulfate 18 Gm Hfa.aer.ad, 1-2 PUFF IH QID, (Reported) Cefdinir 300 Mg Capsule, 300 MG PO BID Prescribed by: NILAM WILKERSON on 05/18/17 1350 Esomeprazole Magnesium 20 Mg Capsule.dr, 20 MG PO DAILY, (Reported) Fluticasone/Vilanterol 1 Each Blst.w.dev, 1 EACH IH DAILY, (Reported) Gabapentin 600 Mg Tablet, 600 MG PO TID, (Reported) Lisinopril 10 Mg Tablet, 10 MG PO DAILY, (Reported) Metformin Hcl 1,000 Mg Tablet, 1 EACH PO BID WITH MEALS, (Reported) Milnacipran HCl 50 Mg Tablet, 50 MG PO BID, (Reported) Mangum-3/Dha/Epa/Fish Oil 1 Each Capsule.dr, 2 EACH PO DAILY, (Reported) Ondansetron 4 Mg Tab.rapdis, 4 MG PO Q8H, (Reported) Oxycodone HCl/Acetaminophen 1 Each Tablet, 1 EACH PO Q4H PRN for PAIN-MODERATE Prescribed by: ADEOLA CABELLO on 09/18/18 1831 Pravastatin Sodium 40 Mg Tablet, 40 MG PO HS, (Reported) Sucralfate 1 Gm Tablet, 1 GM PO QID, (Reported) Tiotropium [place] 1 Inh Aerp, 1 INH IH DAILY, (Reported) Trazodone Hcl 150 Mg Tablet, 150 MG PO HS, (Reported) Patient Home Medication List Home Medication List Reviewed: Yes Review of Systems Review of Systems Constitutional: no symptoms reported EENTM: No Symptoms Reported Respiratory: See HPI Cardiovascular: See HPI Gastrointestinal: No Symptoms Reported Genitourinary: No Symptoms Reported Musculoskeletal: no symptoms reported Skin: no symptoms reported Psychiatric/Neurological: No Symptoms Reported Endocrine: No Symptoms Reported Hematologic/Lymphatic: No Symptoms Reported Past Wmcnscl-Dphkha-Fbaure Hx Patient Social History Alcohol Use: Denies Use Recreational Drug Use: No Smoking Status: Former Smoker (3 PPD) Type Used: Cigarettes Former Smoker, Quit: May 01, 1999 2nd Hand Smoke Exposure: No Recent Foreign Travel: No Contact w/Someone Who Travel: No Recent Hopitalizations: No Immunizations Up To Date Tetanus Booster (TDap): Unknown Date of Pneumonia Vaccine: March 11, 2016 Seasonal Allergies Seasonal Allergies: No Past Medical History Surgeries: Yes (HERNIA REPAIR; EGD/COLONOSCOPY WITH POLYPECTOMY 2016; ) Abdominal, Gallbladder, Tonsillectomy Respiratory: Yes COPD Currently Using CPAP: Yes Cardiac: No High Cholesterol, Hypertension Neurological: No Reproductive Disorders: No Sexually Transmitted Disease: No HIV/AIDS: No Genitourinary: No Gastrointestinal: Yes Abdominal Hernia, Gastroesophageal Reflux, Diverticulosis, Hepatitis, Polyps, Irritable Bowel Musculoskeletal: Yes (RIGHT SCIATICA--WALKS WITH CANE) Degenerate Disk Disease, Arthritis, Chronic Back Pain Endocrine: Yes (OBESITY) Diabetes, Non-Insulin dep HEENT: No Loss of Vision: Bilateral Hearing Impairment: Hearing Aide Right Cancer: No Psychosocial: No Integumentary: No Blood Disorders: No Adverse Reaction/Blood Tranf: No Family Medical History Heart Disease, Cancer, Diabetes, Hypertension Physical Exam Vital Signs Vital Signs - First Documented Capillary Refill : Height, Weight, BMI Height: 5'11.00" Weight: 270lbs. 6.0oz. 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 as Tested Skin: Normal Color, Warm/Dry Progress/Results/Core Measures Results/Orders Lab Results Laboratory Tests Test 01/25/19 18:00 Range/Units White Blood Count 7.0 4.3-11.0 10^3/uL Red Blood Count 4.98 4.35-5.85 10^6/uL Hemoglobin 12.5 L 13.3-17.7 G/DL Hematocrit 41 40-54 % Mean Corpuscular Volume 82 80-99 FL Mean Corpuscular Hemoglobin 25 25-34 PG Mean Corpuscular Hemoglobin Concent 31 L 32-36 G/DL Red Cell Distribution Width 16.1 H 10.0-14.5 % Platelet Count 327 130-400 10^3/uL Mean Platelet Volume 8.2 7.4-10.4 FL Neutrophils (%) (Auto) 45 42-75 % Lymphocytes (%) (Auto) 42 12-44 % Monocytes (%) (Auto) 8 0-12 % Eosinophils (%) (Auto) 5 0-10 % Basophils (%) (Auto) 1 0-10 % Neutrophils # (Auto) 3.1 1.8-7.8 X 10^3 Lymphocytes # (Auto) 3.0 1.0-4.0 X 10^3 Monocytes # (Auto) 0.5 0.0-1.0 X 10^3 Eosinophils # (Auto) 0.3 0.0-0.3 10^3/uL Basophils # (Auto) 0.0 0.0-0.1 10^3/uL Prothrombin Time 13.0 12.2-14.7 SEC INR Comment 1.0 0.8-1.4 Activated Partial Thromboplast Time 32 24-35 SEC Sodium Level 138 135-145 MMOL/L Potassium Level 4.0 3.6-5.0 MMOL/L Chloride Level 103 98-107 MMOL/L Carbon Dioxide Level 24 21-32 MMOL/L Anion Gap 11 5-14 MMOL/L Blood Urea Nitrogen 15 7-18 MG/DL Creatinine 0.86 0.60-1.30 MG/DL Estimat Glomerular Filtration Rate > 60 BUN/Creatinine Ratio 17 Glucose Level 102 70-105 MG/DL Calcium Level 9.6 8.5-10.1 MG/DL Corrected Calcium 9.4 8.5-10.1 MG/DL Magnesium Level 2.4 1.8-2.4 MG/DL Total Bilirubin 0.3 0.1-1.0 MG/DL Aspartate Amino Transf (AST/SGOT) 27 5-34 U/L Alanine Aminotransferase (ALT/SGPT) 22 0-55 U/L Alkaline Phosphatase 67 40-136 U/L Total Creatine Kinase 143 30-200 U/L Creatine Kinase MB 2.3 <6.6 NG/ML Myoglobin 48.4 10.0-92.0 NG/ML Troponin I < 0.028 <0.028 NG/ML B-Type Natriuretic Peptide < 10.0 <100.0 PG/ML Total Protein 7.3 6.4-8.2 GM/DL Albumin 4.3 3.2-4.5 GM/DL Amylase Level 68 25-125 U/L Lipase 28 8-78 U/L My Orders Orders - SHARIFA DC DO Cbc With Automated Diff (01/25/19 17:56) Magnesium (01/25/19 17:56) Chest 1 View, Ap/Pa Only (01/25/19 17:56) Ekg Tracing (01/25/19 17:56) Cardiac Profile 1 (01/25/19 17:56) Comprehensive Metabolic Panel (01/25/19 17:56) Myoglobin Serum (01/25/19 17:56) Protime With Inr (01/25/19 17:56) Partial Thromboplastin Time (01/25/19 17:56) O2 (01/25/19 17:56) Monitor-Rhythm Ecg Trace Only (01/25/19 17:56) Aspirin Chewable Tablet (Baby Aspirin Ch (01/25/19 18:00) Nitroglycerin 0.4 Mg Btl 25's (Nitrostat (01/25/19 18:00) Saline Lock/Iv-Start (01/25/19 17:56) Creatine Kinase (01/25/19 17:56) Creatine Kinase Mb (01/25/19 17:56) Lipase (01/25/19 17:56) Amylase (01/25/19 17:56) BNP (01/25/19 17:56) Medications Given in ED Current Medications Medications Dose Ordered Sig/Montez Route Start Time Stop Time Status Last Admin Dose Admin Aspirin 324 mg ONCE ONCE PO 01/25/19 18:00 01/25/19 18:01 DC 01/25/19 18:11 324 MG Nitroglycerin 0.4 mg UD PRN SL 01/25/19 18:00 01/25/19 21:13 DC 01/25/19 18:11 0.4 MG Vital Signs/I&O 01/25/19 01/25/19 17:50 17:50 Temp 98.4 Pulse 114 Resp 20 B/P (MAP) 163/115 (131) Pulse Ox 97 O2 Delivery Room Air Room Air Progress Progress Note : Progress Note UNEVENTFUL ER STAY. NO SYMPTOMS DURING ER STAY. Initial ECG Impression Date: Jan 25, 2019 Initial ECG Impression Time: 17:55 Initial ECG Rate: 104 Initial ECG Rhythm: Normal Sinus Diagnostic Imaging Comments CXR--NO ACUTE PROCESS, PER RADIOLOGIST REPORT @ 1840 Reviewed: Reviewed by Me Departure Communication (Admissions) 1901--SPOKE WITH DR. AVENDANO, HE ADVISES TO ADMIT TO HOSPITALIST AND HE WILL SEE IN CONSULT 1904--SPOKE WITH DR. MADERA, HOSPITALIST, ACCEPTS PT FOR ADMIT. Impression Primary Impression: Chest pain Additional Impression: COPD (chronic obstructive pulmonary disease) Disposition: ADMITTED INPATIENT Condition: Improved Admissions Decision to Admit Reason: Admit from ER (General) Decision to Admit/Date: Jan 25, 2019 Time/Decision to Admit Time: 19:05 Departure-Patient Inst. Referrals: SANFORD BOLAND MD (PCP/Family) Primary Care Physician SHARIFA DC DO Jan 25, 2019 18:12
[2019-01-25 18:13] LABS: BASOPHILS % (AUTO) 1 % (0-10); EOSINOPHILS # (AUTO) 0.3 10^3/uL (0.0-0.3); EOSINOPHILS % (AUTO) 5 % (0-10); HEMATOCRIT 41 % (40-54); HEMOGLOBIN 12.5 G/DL (13.3-17.7); LYMPHOCYTES % (AUTO) 42 % (12-44); MEAN CORPUSCULAR HEMOGLOBIN 25 PG (25-34); MEAN CORPUSCULAR HGB CONC 31 G/DL (32-36); MEAN CORPUSCULAR VOLUME 82 FL (80-99); MEAN PLATELET VOLUME 8.2 FL (7.4-10.4); MONOCYTES # (AUTO) 0.5 X 10^3 (0.0-1.0); MONOCYTES % (AUTO) 8 % (0-12); NEUTROPHILS # (AUTO) 3.1 X 10^3 (1.8-7.8); NEUTROPHILS % (AUTO) 45 % (42-75); PLATELET COUNT 327 10^3/uL (130-400); RED CELL DISTRIBUTION WIDTH 16.1 % (10.0-14.5)
--- NOTE | 2019-01-25 18:21 | NUR ---
PT STATES CHEST PAIN IS GONE AFTER FIRST NITRO. BP DOWN TO 146/80.
--- NOTE | 2019-01-25 18:31 | Diagnostic Imaging Report ---
INDICATION: Chest pain. Comparison with 09/18/2018. FINDINGS: Portable chest shows the lungs to be well-aerated. There are no infiltrates. Heart is not enlarged. There is no pulmonary edema. No pneumothorax or pleural effusions. No hilar adenopathy. No bony abnormalities. IMPRESSION: Normal portable chest. Dictated by: Dictated on workstation # [id number]
[2019-01-25 18:46] LABS: ALANINE AMINOTRANSFERASE 22 U/L (0-55); ALBUMIN 4.3 GM/DL (3.2-4.5); ALKALINE PHOSPHATASE 67 U/L (40-136); AMYLASE 68 U/L (25-125); BILIRUBIN,TOTAL 0.3 MG/DL (0.1-1.0); BUN/CREATININE RATIO 17; CALCIUM 9.6 MG/DL (8.5-10.1); CARBON DIOXIDE 24 MMOL/L (21-32); CHLORIDE 103 MMOL/L (98-107); CREATINE KINASE 143 U/L (30-200); CREATININE SERUM 0.86 MG/DL (0.60-1.30); GFR ESTIMATED > 60; GLUCOSE 102 MG/DL (70-105); LIPASE 28 U/L (8-78); MAGNESIUM 2.4 MG/DL (1.8-2.4); SODIUM 138 MMOL/L (135-145); TOTAL PROTEIN 7.3 GM/DL (6.4-8.2)
[2019-01-25 18:55] LABS: CREATINE KINASE MB 2.3 NG/ML (<6.6); MYOGLOBIN SERUM 48.4 NG/ML (10.0-92.0)
--- OUTSIDE RECORDS SUMMARY | 2019-01-25 20:16 | XMS REPORT | Continuity of Care Document ---
Author Author [facility] Organization [facility] Address Unknown Phone Unavailable Allergies Active Description Code Type Severity Reaction Onset Reported/Identified Relationship to Patient Clinical Status Yes NO KNOWN DRUG ALLERGIES UNKNOWN NO KNOWN DRUG ALLERG Yes No Known Drug Allergies [id number] Drug Allergy Mild N/A 04/16/2008 Yes No Known Drug Allergies [id number] Drug Allergy Unknown N/A 05/01/2017 Medications There [...] 08/22/2015 DORI ANAYA MD Ot Z79.899 OTHER RINK RAT (CURRENT) DRUG THERAPY 09/14/2015 KYA MUNIZ, SANFORD L Ot E11.9 09/14/2015 KYA MUNIZ, SANFORD L Ot E11.9 09/15/2015 RAYA MUNIZ FACC, ALI FACP CCDS Ot E11.9 09/15/2015 RAYA MUNIZ FACC, ALI FACP CCDS Ot E66.01 09/15/2015 RAYA MUNIZ FACC, ALI FACP CCDS Ot E78.4 09/15/2015 RAYA MUNIZ FACC, ALI FACP CCDS Ot I10 09/15/2015 RAYA UMNIZ FACC, ALI FACP CCDS Ot R06.09 09/15/2015 RAYA MUNIZ FACC, ALI FACP CCDS Ot R07.89 09/15/2015 RAYA MUNIZ FACC, ALI FACP CCDS Ot E11.9 09/15/2015 RAYA MUNIZ FACC, ALI FACP CCDS Ot E66.01 09/15/2015 RAYA MUNIZ FACC, ALI FACP CCDS Ot E78.4 09/15/2015 RAYA MUNIZ FACC, ALI FACP CCDS Ot I10 09/15/[address] [facility], ALI FACP CCDS Ot R06.09 09/15/2015 [...] ALI FACP CCDS Ot I10 12/01/2015 RAYA YT, ALI FACP CCDS Ot R06.09 12/01/2015 RAYA [...] CCDS Ot R07.89 12/05/[address] [facility], ALI FACP CCDS Ot E11.9 12/05/[address] [facility], ALI FACP CCDS Ot E66.01 12/05/[address] [facility], ALI FACP CCDS Ot E78.4 12/05/[address] [facility], ALI FACP CCDS Ot I10 12/05/[address] [facility], ALI FACP CCDS Ot R06.09 12/05/[address] [facility], ALI FACP CCDS Ot R07.89 12/05/2015 JOSIE GURROLA LEAN COACH Ot G47.19 12/05/2015 IZABELA JOSIE E LEAN COACH Ot R06.09 12/05/2015 IZABELA JOSIE E LEAN COACH Ot R06.83 12/11/2015 IZABELA JOSIE E LEAN COACH Ot G47.19 12/11/2015 IZABELA JOSIE E LEAN COACH Ot R06.09 12/11/2015 NADIR GURROLAINE E LEAN COACH Ot R06.83 12/27/2015 KYA MUNIZ, SANFORD L Ot E11.9 12/27/[address] [facility], ALI FACP CCDS Ot E11.9 12/27/[address] [facility], ALI FACP CCDS Ot E66.01 12/27/2015 RAYA MUNIZ FAC, ALI FACP CCDS Ot E78.4 12/27/[address] [facility], ALI FACP CCDS Ot I10 12/27/2015 RAYA [...] GURROLA APRN Ot G47.19 01/15/2016 JOSIE GURROLA LEAN COACH Ot R06.09 01/15/2016 JOSIE GURROLA LEAN COACH Ot R06.83 01/16/2016 JOSIE GURROLA APRN Ot G47.33 OBSTRUCTIVE SLEEP APNEA (ADULT) (PEDIATR 01/16/2016 JOSIE GURROLA LEAN COACH Ot I10 ESSENTIAL (PRIMARY) HYPERTENSION 01/19/2016 KYA [...] CCDS Ot R07.89 01/19/2016 NADIR GURROLAINE E LEAN COACH Ot G47.19 01/19/2016 IZABELA JOSIE E LEAN COACH Ot R06.09 01/19/2016 IZABELA JOSIE E LEAN COACH Ot R06.83 01/23/2016 ALEXIS HOOVER MD (DDU) Ot J44.9 01/23/2016 ALEXIS HOOVER MD (DDU) Ot Z02.71 02/03/2016 NADIR GURROLAINE E LEAN COACH Ot G47.33 02/03/2016 IZABELA, JOSIE E LEAN COACH Ot I10 03/04/2016 IZABELA JOSIE E LEAN COACH Ot G47.19 OTHER HYPERSOMNIA 03/04/2016 IZABELANADIRJOSIE E LEAN COACH Ot R06.09 OTHER FORMS OF DYSPNEA 03/04/2016 IZABELANADIRJOSIE E LEAN COACH Ot R06.83 SNORING 03/04/2016 IZABELA JOSIE E LEAN COACH Ot F17.201 NICOTINE DEPENDENCE, UNSPECIFIED, IN REM 03/04/2016 IZABELANADIRJOSIE E LEAN COACH Ot J44.9 CHRONIC OBSTRUCTIVE PULMONARY DISEASE, U 03/04/2016 IZABELA JOSIE E LEAN COACH Ot J45.909 UNSPECIFIED ASTHMA, UNCOMPLICATED 04/15/2016 IZABELA, JOSIE E LEAN COACH Ot G47.19 OTHER HYPERSOMNIA 04/15/2016 IZABELANADIRJOSIE E LEAN COACH Ot R06.09 OTHER FORMS OF DYSPNEA 04/15/2016 IZABELANADIRJOSIE E LEAN COACH Ot R06.83 SNORING 04/15/2016 IZABELA, JOSIE E LEAN COACH Ot F17.201 NICOTINE DEPENDENCE, UNSPECIFIED, IN REM 04/15/2016 IZABELA, JOSIE E LEAN COACH Ot J44.9 CHRONIC OBSTRUCTIVE PULMONARY DISEASE, U 04/15/2016 IZABELA JOSIE E LEAN COACH Ot J45.909 UNSPECIFIED ASTHMA, UNCOMPLICATED 04/16/2016 IZABELA, JOSIE E LEAN COACH Ot G47.19 OTHER HYPERSOMNIA 04/16/2016 IZABELA JOSIE E LEAN COACH Ot R06.09 OTHER FORMS OF DYSPNEA 04/16/2016 IZABELA JOSIE E LEAN COACH Ot R06.83 SNORING 04/16/2016 JOSIE GURROLA APRN Ot F17.201 NICOTINE DEPENDENCE, UNSPECIFIED, IN REM 04/16/2016 JOSIE GURROLA APRN Ot J44.9 CHRONIC OBSTRUCTIVE PULMONARY DISEASE, U 04/16/2016 JOSIE GURROLA APRN Ot J45.909 UNSPECIFIED ASTHMA, UNCOMPLICATED 04/18/2016 NIKI AKINS LEAN COACH Ot M54.41 LUMBAGO WITH SCIATICA, RIGHT SIDE 04/18/2016 NIKI AKINS LEAN COACH Ot M54.42 LUMBAGO WITH SCIATICA, LEFT SIDE [...] Ot E78.4 OTHER HYPERLIPIDEMIA 03/22/[address] [facility], ALI FACP CCDS Ot I10 ESSENTIAL (PRIMARY) HYPERTENSION 03/22/[address] [facility], ALI FACP CCDS Ot R06.09 OTHER FORMS OF DYSPNEA 03/22/[address] [facility], ALI FACP CCDS Ot R07.89 OTHER CHEST PAIN 03/22/2017 JOSIE GURROLA APRN Ot G47.19 OTHER HYPERSOMNIA 03/22/2017 JOSIE GURROLA APRN Ot R06.09 OTHER FORMS OF DYSPNEA 03/22/2017 JOSIE GURROLA LEAN COACH Ot R06.83 SNORING 03/22/2017 ALEXIS HOOVER MD [...] 03/22/2017 DAO MICHAELS SHARIFA Sharp Ot Z79.82 RINK RAT (CURRENT) USE OF ASPIRIN 03/22/2017 DAO MICHAELS SHARIFA Sharp Ot Z79.84 DETENTION (CURRENT) USE OF ORAL HYPOGLYC 03/22/2017 DAO MICHAELS SHARIFA Sharp Ot Z79.899 OTHER RINK RAT (CURRENT) DRUG THERAPY 03/22/2017 DAO MICHAELS SHARIFA [...] R07.89 OTHER CHEST PAIN 03/22/2017 JOSIE GURROLA LEAN COACH Ot G47.19 OTHER HYPERSOMNIA 03/22/2017 JOSIE GURROLA LEAN COACH Ot R06.09 OTHER FORMS OF DYSPNEA 03/22/2017 JOSIE GURROLA LEAN COACH Ot R06.83 SNORING 03/22/2017 ALEXIS HOOVER MD (DDU) Ot J44.9 CHRONIC OBSTRUCTIVE PULMONARY DISEASE, U 03/22/2017 ALEXIS HOOVER MD (DDU) Ot Z02.71 ENCOUNTER FOR DISABILITY DETERMINATION 03/22/2017 NIKI AKINS LEAN COACH Ot M54.41 LUMBAGO WITH SCIATICA, RIGHT SIDE 03/22/2017 NIKI AKINS LEAN COACH Ot M54.42 LUMBAGO WITH SCIATICA, LEFT SIDE 03/22/2017 NIKI AKINS LEAN COACH Ot M54.6 PAIN IN THORACIC SPINE 03/22/2017 NIKI AKINS LEAN COACH Ot M54.41 LUMBAGO WITH SCIATICA, RIGHT SIDE [...] UNSPECIFIED 03/24/2017 DAO SHARIFA MICHAELS Ot Z79.82 RINK RAT (CURRENT) USE OF ASPIRIN 03/24/2017 DAO SHARIFA MICHAELS Ot Z79.84 DETENTION (CURRENT) USE OF ORAL HYPOGLYC 03/24/2017 DAO SHARIFA MICHAELS Ot Z79.899 OTHER RINK RAT (CURRENT) DRUG THERAPY 03/24/2017 DAO SHARIFA MICHAELS [...] Ot M51.36 OTHER INTERVERTEBRAL DISC DEGENERATION, 04/10/2017 SAHRIFA DC DO Ot S80.11XA CONTUSION OF RIGHT LOWER LEG, INITIAL EN 04/10/2017 SHARIFA DC DO Ot S93.501A UNSPECIFIED SPRAIN OF RIGHT GREAT TOE, I 04/10/2017 SHARIFA DC DO Ot S99.921A UNSPECIFIED INJURY OF RIGHT FOOT, INITIA 04/10/2017 SHARIFA DC DO Ot W01.0XXA FALL SAME LEV FROM SLIP/TRIP W/O STRIKE 04/10/2017 SHARIFA CD DO Ot Y92.[address] IN [facility] NON-[facility] (PRIVATE 04/10/2017 SHARIFA DC DO Ot Y99.8 OTHER EXTERNAL CAUSE STATUS 04/10/2017 SHARIFA DC DO Ot Z79.82 DETENTION (CURRENT) USE OF ASPIRIN 04/10/2017 SHARIFA DC DO Ot Z79.84 DETENTION (CURRENT) USE OF ORAL HYPOGLYC 04/10/2017 SHARIFA DC DO Ot Z79.899 OTHER RINK RAT (CURRENT) DRUG THERAPY 04/10/2017 SANFORD BOLAND MD [...] R06.83 SNORING 04/10/2017 KIKO MUNIZ, ALEXIS [place] ([facility]) Ot J44.9 CHRONIC OBSTRUCTIVE PULMONARY DISEASE, U 04/10/2017 KIKO MUNIZ, ALEXIS [place] ([facility]) Ot Z02.71 ENCOUNTER FOR DISABILITY DETERMINATION 04/10/2017 AKINSNIKI Tripathi LIZZIE Ot M54.41 LUMBAGO WITH SCIATICA, RIGHT SIDE 04/10/2017 AKINSNIKI LEAN COACH Ot M54.42 LUMBAGO WITH SCIATICA, LEFT SIDE 04/10/2017 MABLE NIKI Aubrie SAMUEL Ot M54.6 PAIN IN THORACIC SPINE 04/10/2017 MABLENIKI Aubrie LEAN COACH Ot M54.41 LUMBAGO WITH SCIATICA, RIGHT SIDE [...] STRIKE 04/13/2017 SHARIFA DC DO Ot Y92.[address] [facility] [address] IN [facility] 04/13/2017 DAO MICHAELS SHARIFA Aron Ot Y99.8 OTHER EXTERNAL CAUSE STATUS 04/13/2017 SHARIFA DC DO Ot Z79.82 RINK RAT (CURRENT) USE OF ASPIRIN 04/13/2017 SHARIFA DC DO Ot Z79.84 RINK RAT (CURRENT) USE OF ORAL HYPOGLYC 04/13/2017 SHARIFA DC DO Ot Z79.899 OTHER DETENTION (CURRENT) DRUG THERAPY 04/23/2017 SANFORD BOLAND MD [...] OTHER FORMS OF DYSPNEA 04/23/[address] [facility], ALI FACP CCDS Ot R07.89 OTHER CHEST PAIN 04/23/2017 JOSIE GURROLA APRN Ot G47.19 OTHER HYPERSOMNIA 04/23/2017 JOSIE GURROLA APRN Ot R06.09 OTHER FORMS OF DYSPNEA 04/23/2017 JOSIE GURROLA LEAN COACH Ot R06.83 SNORING 04/23/2017 ALEXIS HOOVER MD (DDU) Ot J44.9 CHRONIC OBSTRUCTIVE PULMONARY DISEASE, U 04/23/2017 ALEXIS HOOVER MD (DDU) Ot Z02.71 ENCOUNTER FOR DISABILITY DETERMINATION 04/23/2017 NIKI AKINS APRN Ot M54.41 LUMBAGO WITH SCIATICA, RIGHT SIDE 04/23/2017 NIKI AKINS APRN Ot M54.42 LUMBAGO WITH SCIATICA, LEFT SIDE 04/23/2017 NIKI AKINS LEAN COACH Ot M54.6 PAIN IN THORACIC SPINE 04/23/2017 [...] 04/23/2017 SHARIFA DC DO Ot Y92.[address] [facility] [address] IN [facility] NON[facility] (PRIVATE 04/23/2017 DAO MICHAELS SHARIFA Aron Ot Y99.8 OTHER EXTERNAL CAUSE STATUS 04/23/2017 SHARIFA DC DO Ot Z79.82 DETENTION (CURRENT) USE OF ASPIRIN 04/23/2017 SHARIFA DC DO Ot Z79.84 RINK RAT (CURRENT) USE OF ORAL HYPOGLYC 04/23/2017 SHARIFA DC DO Ot Z79.899 OTHER DETENTION (CURRENT) DRUG THERAPY 04/23/2017 NIKI AKINS APRN Ot M54.41 LUMBAGO WITH SCIATICA, RIGHT SIDE 04/23/2017 NIKI AKINS APRN Ot M54.42 LUMBAGO WITH SCIATICA, LEFT SIDE 04/23/2017 NIKI AKINS APRN Ot M54.6 PAIN IN THORACIC SPINE 04/24/2017 NIKI AKINS APRN Ot M54.41 LUMBAGO WITH SCIATICA, RIGHT SIDE 04/24/2017 NIKI AKINS APRN Ot M54.42 LUMBAGO WITH SCIATICA, LEFT SIDE 04/24/2017 AKINS, NIKI R LEAN COACH Ot M54.6 PAIN IN THORACIC SPINE 04/28/2017 [...] R07.89 OTHER CHEST PAIN 04/28/2017 JOSIE GURROLA LEAN COACH Ot G47.19 OTHER HYPERSOMNIA 04/28/2017 JOSIE GURROLA LEAN COACH Ot R06.09 OTHER FORMS OF DYSPNEA 04/28/2017 JOSIE GURROLA LEAN COACH Ot R06.83 SNORING 04/28/2017 ALEXIS HOOVER MD (ADAN) Ot J44.9 CHRONIC OBSTRUCTIVE PULMONARY DISEASE, U 04/28/2017 ALEXIS HOOVER MD (ADAN) Ot Z02.71 ENCOUNTER FOR DISABILITY DETERMINATION 04/28/2017 NIKI AKINS APRN Ot M54.41 LUMBAGO WITH SCIATICA, RIGHT SIDE 04/28/2017 NIKI AKINS LEAN COACH Ot M54.42 LUMBAGO WITH SCIATICA, LEFT SIDE 04/28/2017 NIKI AKINS LEAN COACH Ot M54.6 PAIN IN THORACIC SPINE 04/28/2017 NIKI AKINS LEAN COACH Ot M54.41 LUMBAGO WITH SCIATICA, RIGHT SIDE 05/01/2017 ANILA LAWRENCE DO Ot K21.9 GASTRO-ESOPHAGEAL REFLUX DISEASE WITHOUT 05/01/2017 ANILA LAWRENCE DO Ot Z01.818 ENCOUNTER FOR OTHER PREPROCEDURAL EXAMIN 05/01/2017 ANILA LAWRENCE DO Ot Z83.79 FAMILY HISTORY OF OTHER DISEASES OF THE 05/06/2017 JOSIE GURROLA APRN Ot G47.19 OTHER HYPERSOMNIA 05/06/2017 JOSIE GURROLA LEAN COACH Ot R06.09 OTHER FORMS OF DYSPNEA 05/06/2017 JOSIE GURROLA APRN Ot R06.83 SNORING 05/06/2017 JOSIE GURROLA APRN Ot F17.201 NICOTINE DEPENDENCE, UNSPECIFIED, IN REM 05/06/2017 JOSIE GURROLA LEAN COACH Ot J44.9 CHRONIC OBSTRUCTIVE PULMONARY DISEASE, U 05/06/2017 JOSIE GURROLA LEAN COACH Ot J45.909 UNSPECIFIED ASTHMA, UNCOMPLICATED 05/06/2017 ANILA LAWRENCE DO Ot R07.9 CHEST PAIN, UNSPECIFIED 05/06/2017 ANILA LAWRENCE DO Ot Z01.818 ENCOUNTER FOR OTHER PREPROCEDURAL EXAMIN 05/06/2017 ANILA LAWRENCE DO Ot Z86.010 PERSONAL HISTORY OF COLONIC POLYPS 05/06/2017 NIKI AKINS LEAN COACH Ot M54.41 LUMBAGO WITH SCIATICA, RIGHT SIDE 05/06/2017 NIKI AKINS LEAN COACH Ot M54.42 LUMBAGO WITH SCIATICA, LEFT SIDE 05/06/2017 NIKI AKINS LEAN COACH Ot M54.6 PAIN IN THORACIC SPINE 05/06/2017 JOSIE GURROLA LEAN COACH Ot G47.19 OTHER HYPERSOMNIA 05/06/2017 JOSIE GURROLA LEAN COACH Ot R06.09 OTHER FORMS OF DYSPNEA 05/06/2017 JOSIE GURROLA LEAN COACH Ot R06.83 SNORING 05/06/2017 JOSIE GURROLA APRN [...] POLYP 05/06/2017 ANILA LAWRENCE DO Ot Z79.84 RINK RAT (CURRENT) USE OF ORAL HYPOGLYC 05/06/2017 ANILA LAWRENCE DO Ot Z79.899 OTHER DETENTION (CURRENT) DRUG THERAPY 05/08/2017 NIKI AKINS APRN Ot M54.41 LUMBAGO WITH SCIATICA, RIGHT SIDE 05/08/2017 NIKI AKINS LEAN COACH Ot M54.42 LUMBAGO WITH SCIATICA, LEFT SIDE [...] POLYP 05/13/2017 ANILA LAWRENCE DO Ot Z79.84 RINK RAT (CURRENT) USE OF ORAL HYPOGLYC 05/13/2017 ANILA LAWRENCE DO Ot Z79.899 OTHER DETENTION (CURRENT) DRUG THERAPY 05/16/2017 SANFORD BOLAND MD Ot E11.9 TYPE 2 DIABETES MELLITUS WITHOUT COMPLIC 05/16/2017 SANFORD BOLAND MD Ot E11.9 TYPE 2 DIABETES MELLITUS WITHOUT COMPLIC 05/16/2017 RAYA MUNIZ FACC, ALI FACP CCDS Ot E11.9 TYPE 2 DIABETES MELLITUS WITHOUT COMPLIC 05/16/2017 RAYA MUNIZ FACC, ALI FACP CCDS Ot E66.01 MORBID (SEVERE) OBESITY DUE TO EXCESS CA 05/16/2017 ARYA MUNIZ FACC, ALI FACP CCDS Ot E78.4 [...] ENCOUNTER FOR DISABILITY DETERMINATION 05/16/2017 NIKI AKINS LEAN COACH Ot M54.41 LUMBAGO WITH SCIATICA, RIGHT SIDE 05/16/2017 NIKI AKINS LEAN COACH Ot M54.42 LUMBAGO WITH SCIATICA, LEFT SIDE 05/16/2017 NIKI AKINS LEAN COACH Ot M54.6 PAIN IN THORACIC SPINE 05/16/2017 NIKI AKINS LEAN COACH Ot M54.41 LUMBAGO WITH SCIATICA, RIGHT SIDE [...] DISEASE OF PANCREAS, UNSPECIFIED 05/28/2017 NIKI AKINS LEAN COACH Ot E11.9 TYPE 2 DIABETES MELLITUS WITHOUT COMPLIC 05/28/2017 NIKI AKINS LEAN COACH Ot 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 05/28/2017 NIKI AKINS LEAN COACH Ot K86.9 DISEASE OF PANCREAS, UNSPECIFIED 05/28/2017 NIKI AKINS R LEAN COACH Ot E11.9 TYPE 2 DIABETES MELLITUS WITHOUT COMPLIC 05/28/2017 NIKI AKINS LEAN COACH Ot 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 05/28/2017 NIKI AKINS R LEAN COACH Ot K86.9 DISEASE OF PANCREAS, UNSPECIFIED 08/18/2017 NIKI AKINS R LEAN COACH Ot D73.9 DISEASE OF SPLEEN, UNSPECIFIED 08/18/2017 NIKI AKINS R LEAN COACH Ot K86.89 OTHER SPECIFIED DISEASES OF PANCREAS 09/04/2017 NIKI AKINS R LEAN COACH Ot D73.9 DISEASE OF SPLEEN, UNSPECIFIED 09/04/2017 NIKI AKINS R LEAN COACH Ot K86.89 OTHER SPECIFIED DISEASES OF PANCREAS [...] DEPENDENCE ON SUPPLEMENTAL OXYGEN 01/23/2018 NIKI AKINS LEAN COACH Ot E11.9 TYPE 2 DIABETES MELLITUS WITHOUT COMPLIC 01/23/2018 NIKI AKINS LEAN COACH Ot 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 01/23/2018 NIKI AKINS R LEAN COACH Ot K86.9 DISEASE OF PANCREAS, UNSPECIFIED 01/26/2018 [...] DEPENDENCE ON SUPPLEMENTAL OXYGEN 09/18/2018 NIKI AKINS LEAN COACH Ot E11.9 TYPE 2 DIABETES MELLITUS WITHOUT COMPLIC 09/18/2018 NIKI AKINS LEAN COACH Ot 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 09/18/2018 AKINS, NIKI R LEAN COACH Ot K86.9 DISEASE OF PANCREAS, UNSPECIFIED 09/18/2018 [...] 35.0-35.9, ADULT 09/18/2018 ADEOLA POTTER Ot Z79.51 DETENTION (CURRENT) USE OF INHALED STERO 09/18/2018 ADEOLA POTTER Ot Z79.84 RINK RAT (CURRENT) USE OF ORAL HYPOGLYC 09/18/2018 ADEOLA [...] 35.0-35.9, ADULT 09/21/2018 ADEOLA POTTER Ot Z79.51 RINK RAT (CURRENT) USE OF INHALED STERO 09/21/2018 ADEOLA POTTER Ot Z79.84 RINK RAT (CURRENT) USE OF ORAL HYPOGLYC 09/21/2018 ADEOLA [...] I10 ESSENTIAL (PRIMARY) HYPERTENSION 12/17/2018 NIKI AKINS LEAN COACH Ot E11.9 TYPE 2 DIABETES MELLITUS WITHOUT COMPLIC 12/17/2018 NIKI AKINS R LEAN COACH Ot 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 12/17/2018 NIKI AKINS R LEAN COACH Ot K86.9 DISEASE OF PANCREAS, UNSPECIFIED 12/22/2018 NIKI AKINS R LEAN COACH Ot E11.9 TYPE 2 DIABETES MELLITUS WITHOUT COMPLIC 12/22/2018 NIKI AKINS R LEAN COACH Ot 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 12/22/2018 NIKI AKINS R LEAN COACH Ot K86.9 DISEASE OF PANCREAS, UNSPECIFIED 12/24/2018 [...] 05/16/17 15:54 QUANTITY OF GROWTH . [facility] Bacterial blood culture SEE COMMEN [facility] Bacterial blood culture - 05/16/17 16:46 Bacterial blood culture NG [facility] Complete urinalysis with reflex to culture - 05/16/17 17:47 Urine color determination ORIANA [facility] Urine clarity determination CLEAR [facility] Urine pH measurement by test [...] 7-25 CREATININE 0.90 mg/dL 0.70-1.25 eGFR NON-AFR. EMIRATI 91 mL/min/1.73m2 > OR=60 eGFR 106 mL/min/1.73m2 [...] urine sediment by light microscopy >50 [facility] PATHOLOGY REPORT (TISSUE PAHOLOGY) - 02/09/18 17:57 CLINICAL INFORMATION [facility] PATHOLOGIST [facility] TISSUE, SPECIMEN A - 02/09/18 17:57 A SOURCE NR A GROSS DESCRIPTION [facility] A DIAGNOSIS [facility] [id number] - 09/18/18 15:06 [id number] SPECIMEN AVAILABLE [facility] Comprehensive Metabolic Panel - 12/16/18 [...] Status Pt. Type Provider Facility Loc./Unit Complaint [id number] 01/12/2019 09:28:00 01/12/2019 23:59:59 CLS Preadmit JOSIE GURROLA APRN [facility] RAD SMOKING HISTORY, COPD [id number] 01/05/2019 07:52:00 01/05/2019 23:59:59 CLS Preadmit JOSIE GURROLA APRN [facility] RT ASTHMA,COPD [id number] 01/05/2019 07:49:00 01/05/2019 23:59:59 CLS Preadmit JOSIE GURROLA APRN [facility] RT ASTHMA,MARY,COPD [id number] 12/24/2018 10:03:00 12/24/2018 23:59:59 CLS Outpatient SANFORD BOLAND MD [facility] RAD PANCREATIC MASS [id number] 09/18/2018 14:31:00 09/18/2018 18:55:00 DIS Emergency ADEOLA POTTER [facility] ER UPPER CHEST AND WRIST INJ [id number] 01/22/2018 14:27:00 01/22/2018 17:32:00 DIS Emergency BG DOUGHERTY MD [facility] ER LOW BLOOD PRESSURE LIGHTHEADED/DIZZY WEAK NAUSEA [id number] 08/15/2017 07:40:00 08/15/2017 23:59:59 CLS Outpatient NIKI AKINS APRN [facility] RAD I72.8 [id number] 05/19/2017 07:54:00 05/19/2017 23:59:59 CLS Outpatient NIKI AKINS APRN [facility] RAD E11.9 TYPE 2 DIABETES [id number] 05/16/2017 18:05:00 05/18/2017 14:25:00 DIS Inpatient NILAM WILKERSON MD [facility] 4TH SEPSIS [id number] 05/06/2017 13:15:00 05/06/2017 16:13:00 DIS Outpatient ANILA LAWRENCE DO [facility] ENDO HX DIVERTICULITIS;GERD [id number] 05/01/2017 06:29:00 05/01/2017 15:27:00 DIS Outpatient ANILA LAWRENCE DO [facility] PREOP HX DIVERTICULITIS; GERD [id number] 04/10/2017 21:05:00 04/10/2017 23:00:00 DIS Emergency SHARIFA DC DO [facility] ER FALL INJURY TO RIGHT LEG [id number] 03/22/2017 16:25:00 03/22/2017 19:59:00 DIS Emergency SHARIFA DC DO [facility] ER STOMACH ISSUES [id number] 06/05/2016 12:59:00 06/05/2016 23:59:59 CLS Outpatient NIKI AKINS APRN [facility] RAD SCIATIC NERVE PAIN [id number] 04/23/2016 11:51:00 04/23/2016 15:13:00 DIS Outpatient ANILA LAWRENCE DO [facility] SDC CHEST PAIN, HX POLPYS [id number] 04/18/2016 05:37:00 04/18/2016 23:59:59 CLS Outpatient LAWRENCE ANILA MICHAELS [facility] PREOP CHEST PAIN,HX POLPYS [id number] 04/16/2016 10:05:00 04/16/2016 23:59:59 CLS Outpatient NIKI AKINS LEAN COACH [facility] RAD PAIN IN THORACIC SPINE,[facility] WITH SCIATICA [id number] 01/19/2016 11:25:00 01/19/2016 23:59:59 CLS Outpatient ALEXIS HOOVER MD (DDU) [facility] RT COPD [id number] 01/15/2016 20:17:00 01/16/2016 07:00:00 DIS Outpatient JOSIE GURROLA APRN [facility] SLEEP OBSTRUCTIVE SLEEP APNEA [id number] 01/15/2016 09:09:00 01/15/2016 23:59:59 CLS Outpatient JOSIE GURROLA APRN [facility] RAD COPD W/CHRONIC BRONCHITIS,ASTHMA [id number] 12/04/2015 14:23:00 12/04/2015 23:59:59 CLS Outpatient JOSIE GURROLA APRN [facility] RT AVELAR, EXCESSIVE DATYIME SLEEPINESS, SNORING [id number] 11/27/2015 20:09:00 11/28/2015 06:25:00 DIS Outpatient JOSIE GURROLA APRN [facility] SLEEP OBSERVED APNEAS, SNORING, CHOKING/GASPIN DURING SL [id number] 09/25/2015 12:11:00 09/25/2015 23:59:59 CLS Outpatient ELISABETH DOS SANTOS MD, FACC, FACP CCDS [facility] CARD CHEST DISCOMFORT [id number] 09/14/2015 07:49:00 09/14/2015 23:59:59 CLS Outpatient ELISABETH DOS SANTOS MD, FACC, FACP CCDS [facility] CARD CHEST DISCOMFORT [id number] 08/22/2015 07:05:00 08/22/2015 23:59:59 CLS Outpatient SANFORD BOLAND MD [facility] LABNPT ADD ON LAB [id number] 08/22/2015 07:05:00 08/22/2015 23:59:59 CLS Outpatient SANFORD BOLAND MD [facility] LABT DIABETES MELITIUS [id number] 08/22/2015 06:59:00 08/22/2015 08:28:00 DIS Emergency DORI ANAYA MD [facility] ER CP [id number] 01/28/2015 08:27:00 01/28/2015 10:05:00 DIS Emergency DAO DO, SHARIFA K [facility] ER LEFT LEG PAIN [id number] 05/25/2013 17:25:00 05/25/2013 23:59:59 CLS Outpatient SANFORD BOLAND MD [facility] RAD [id number] 01/18/2019 12:30:00 01/18/2019 23:59:00 DIS Outpatient Kristen Tesfaye [id number] 12/16/2018 14:41:00 12/16/2018 23:59:00 DIS Outpatient SANFORD BOLAND [id number] 11/07/2018 13:55:00 11/07/2018 23:59:59 CLS Outpatient KEO LINDQUIST [facility] [id number] 02/09/2018 16:40:00 Document Registration [id number] 12/02/2017 13:40:00 Document Registration
--- NOTE | 2019-01-25 21:00 | NUR ---
JOSE NORMAN admitted to room 431-1, with an admitting diagnosis of chest pain, HTN, COPD, on 01/25/19 from ED via WC, accompanied by ED staff member, and daughter.JOSE NORMAN introduced to surroundings, call light, bed controls, phone, TV, temperature control, lights, meal times, smoking policy, visitor policy, side rail policy, bathrooms and showers. Patient Rights given to patient in the handbook. JOSE NORMAN verbalizes understanding that [facility] is not responsible for the loss or damage to any personal effects or valuables that are kept in the patients posession during their hospitalization. JOSE NORMAN verbalizes understanding of Interdisciplinary Patient Education. Patient and/or family were informed about the Rapid Response Team and its purpose. Patient plan of care discussed, no questions or concerns at this time.
[2019-01-25] MEDS ORDERED: CATHETER FLUSH 10 ML SYR IV PRN (21:15)
[2019-01-25] MEDS ORDERED: morphine INJ 4 MG/ML 1 ML (VIAL/SYRINGE) IV PRN (21:15)
[2019-01-25] MEDS: CATHETER FLUSH 10 ML SYR IV SCH (22:30)
--- NOTE | 2019-01-25 23:00 | NUR ---
Patient states that he uses CPAP with 2-2.5 L of O2 at HS. Patient does not have CPAP machine here. Will place on O2 PRN to keep O2 sats >94%.
[2019-01-25 23:57] LABS: BILIRUBIN,URINE NEGATIVE (NEGATIVE); CLARITY,URINE CLEAR; COLOR,URINE YELLOW; GLUCOSE, URINE (UA) NEGATIVE (NEGATIVE); KETONES,URINE NEGATIVE (NEGATIVE); LEUKOCYTE ESTERASE ,URINE NEGATIVE (NEGATIVE); NITRITE,URINE NEGATIVE (NEGATIVE); PH,URINE 5 (5-9); PROTEIN,URINE NEGATIVE (NEGATIVE); UROBILINOGEN,URINE NORMAL (NORMAL)
[2019-01-26 00:04] LABS: BACTERIA,URINE TRACE /HPF
[2019-01-26 01:00] VITALS: BP 132/77
[2019-01-26 01:03] LABS: MYOGLOBIN SERUM 56.8 NG/ML (10.0-92.0)
[2019-01-26 04:30] VITALS: BP 124/77
[2019-01-26] MEDS: CATHETER FLUSH 10 ML SYR IV SCH ×2 (05:04→13:56)
[2019-01-26 05:41] LABS: BASOPHILS % (AUTO) 0 % (0-10); EOSINOPHILS # (AUTO) 0.3 10^3/uL (0.0-0.3); EOSINOPHILS % (AUTO) 7 % (0-10); HEMATOCRIT 38 % (40-54); HEMOGLOBIN 11.5 G/DL (13.3-17.7); LYMPHOCYTES # (AUTO) 2.1 X 10^3 (1.0-4.0); LYMPHOCYTES % (AUTO) 42 % (12-44); MEAN CORPUSCULAR HEMOGLOBIN 25 PG (25-34); MEAN CORPUSCULAR HGB CONC 31 G/DL (32-36); MEAN CORPUSCULAR VOLUME 81 FL (80-99); MEAN PLATELET VOLUME 8.1 FL (7.4-10.4); MONOCYTES # (AUTO) 0.5 X 10^3 (0.0-1.0); MONOCYTES % (AUTO) 10 % (0-12); NEUTROPHILS % (AUTO) 40 % (42-75); PLATELET COUNT 300 10^3/uL (130-400); RED CELL DISTRIBUTION WIDTH 15.9 % (10.0-14.5); WHITE BLOOD COUNT 4.9 10^3/uL (4.3-11.0)
[2019-01-26 06:04] LABS: ALANINE AMINOTRANSFERASE 19 U/L (0-55); ALBUMIN 3.8 GM/DL (3.2-4.5); ALKALINE PHOSPHATASE 63 U/L (40-136); BILIRUBIN,TOTAL 0.3 MG/DL (0.1-1.0); BUN/CREATININE RATIO 18; CALCIUM 9.3 MG/DL (8.5-10.1); CARBON DIOXIDE 23 MMOL/L (21-32); CHLORIDE 106 MMOL/L (98-107); CHOLESTEROL 149 MG/DL (< 200); CREATININE SERUM 0.83 MG/DL (0.60-1.30); GFR ESTIMATED > 60; GLUCOSE 123 MG/DL (70-105); HDL CHOLESTEROL 41 MG/DL (40-60); SODIUM 138 MMOL/L (135-145); TOTAL PROTEIN 6.4 GM/DL (6.4-8.2); TRIGLYCERIDES 270 MG/DL (<150); VLDL CHOLESTEROL 54 MG/DL (5-40)
[2019-01-26] MEDS ORDERED: FLU QUADRIvalent (5+ YOA) 2018-2019 (AFLURIA) 0.5 ML IM ONE (07:00)
--- NOTE | 2019-01-26 07:24 | Pulmonary Consultation ---
History of Present Illness History of Present Illness Date of Consultation 01/26/19 07:19 Time Seen by Provider: 07:19 Date of Admission History of Present Illness 63yo with hx of MARY, COPD presented to ED from PFT lab secondary to worsening SOB, and right sided CP. Troponins are negative x 2. Pt is currently on RA. CXR is negative. No fevers. Allergies and Home Medications Allergies Coded Allergies: No Known Drug Allergies (Unverified , 05/01/17) Home Medications Albuterol Sulfate 18 Gm Hfa.aer.ad, 1-2 PUFF IH QID, (Reported) Cefdinir 300 Mg Capsule, 300 MG PO BID Prescribed by: NILAM WILKERSON on 05/18/17 1350 Esomeprazole Magnesium 20 Mg Capsule.dr, 20 MG PO DAILY, (Reported) Fluticasone/Vilanterol 1 Each Blst.w.dev, 1 EACH IH DAILY, (Reported) Gabapentin 600 Mg Tablet, 600 MG PO TID, (Reported) Lisinopril 10 Mg Tablet, 10 MG PO DAILY, (Reported) Metformin Hcl 1,000 Mg Tablet, 1 EACH PO BID WITH MEALS, (Reported) Milnacipran HCl 50 Mg Tablet, 50 MG PO BID, (Reported) [place]-3/Dha/Epa/Fish Oil 1 Each Capsule.dr, 2 EACH PO DAILY, (Reported) Ondansetron 4 Mg Tab.rapdis, 4 MG PO Q8H, (Reported) Oxycodone HCl/Acetaminophen 1 Each Tablet, 1 EACH PO Q4H PRN for PAIN-MODERATE Prescribed by: ADEOLA CABELLO on 09/18/18 1831 Pravastatin Sodium 40 Mg Tablet, 40 MG PO HS, (Reported) Sucralfate 1 Gm Tablet, 1 GM PO QID, (Reported) Tiotropium [place] 1 Inh Aerp, 1 INH IH DAILY, (Reported) Trazodone Hcl 150 Mg Tablet, 150 MG PO HS, (Reported) Past Qgystjg-Ilutif-Wjdkhv Hx Patient Social History Alcohol Use: Denies Use Recreational Drug Use: No Smoking Status: Former Smoker (3 PPD) Type Used: Cigarettes Former Smoker, Quit: May 01, 1999 2nd Hand Smoke Exposure: No Recent Foreign Travel: No Contact w/Someone Who Travel: No Recent Infectious Disease Expo: No Recent Hopitalizations: No Immunizations Up To Date Tetanus Booster (TDap): Unknown Date of Pneumonia Vaccine: March 11, 2016 Seasonal Allergies Seasonal Allergies: No Past Medical History Surgeries: Yes (HERNIA REPAIR; EGD/COLONOSCOPY WITH POLYPECTOMY 2017; ) Abdominal, Gallbladder, Tonsillectomy Respiratory: Yes Asthma, COPD, Emphysema Currently Using CPAP: Yes Cardiac: Yes High Cholesterol, Hypertension Neurological: No Reproductive Disorders: No Sexually Transmitted Disease: No HIV/AIDS: No Genitourinary: No Gastrointestinal: Yes Abdominal Hernia, Gastroesophageal Reflux, Diverticulosis, Hepatitis, Polyps, Irritable Bowel Musculoskeletal: Yes (RIGHT SCIATICA--WALKS WITH CANE) Degenerate Disk Disease, Arthritis, Chronic Back Pain Endocrine: Yes (OBESITY) Diabetes, Non-Insulin dep HEENT: No Loss of Vision: Bilateral Hearing Impairment: Hearing Aide Right Cancer: No Psychosocial: No Integumentary: No Blood Disorders: No Adverse Reaction/Blood Tranf: No Family Medical History Heart Disease, Cancer, Diabetes, Hypertension Sepsis Event Evaluation Height, Weight, BMI Height: 5'9.00" Weight: 325lbs. 0.0oz. 147.478252du; 48.0 BMI Method:Stated Exam Exam Vital Signs Date Time Temp Pulse Resp B/P (MAP) Pulse Ox O2 Delivery O2 Flow Rate FiO2 01/26/19 04:30 98.4 97 16 124/77 (93) 94 Room Air 01/26/19 01:00 98.7 91 16 132/77 (95) 94 Room Air 01/26/19 00:54 93 01/25/19 23:48 97.9 95 16 151/89 (109) 94 Room Air 01/25/19 23:00 98.3 85 18 146/82 (103) 97 Room Air 01/25/19 22:12 101 01/25/19 22:00 85 18 135/82 (99) 96 Room Air 01/25/19 21:45 100 18 141/90 (107) 94 Room Air 01/25/19 21:30 98.3 99 18 143/80 (101) 95 Room Air 01/25/19 21:15 98.3 86 18 142/82 (102) 95 Room Air 01/25/19 21:00 95 Room Air 01/25/19 21:00 98.3 85 18 162/87 95 Room Air 01/25/19 21:00 98.3 85 18 162/87 (112) 95 Room Air 01/25/19 20:57 98.4 90 18 143/102 (116) 98 Room Air 01/25/19 17:50 Room Air 01/25/19 17:50 98.4 114 20 163/115 (131) 97 Room Air I & O 01/26/19 07:00 Intake Total 0 ml Output Total 450 ml Balance -450 ml Height & Weight Height: 5'9.00" Weight: 325lbs. 0.0oz. 147.626005dd; 48.0 BMI Method:Stated General Appearance: No Apparent Distress, Obese HEENT: PERRL/EOMI, Other (NO TOP TEETH) Neck: Full Range of Motion, Normal Inspection, Non Tender, Supple; No Carotid Bruit, No JVD Respiratory: Normal Breath Sounds, No Accessory Muscle Use, No Respiratory Distress Cardiovascular: No Murmur, Normal Peripheral Pulses, Tachycardia Capillary Refill: Less Than 3 Seconds Extremity: Normal Range of Motion, Non Tender, Pedal Edema (TRACE BILATERALLY) Neurologic/Psychiatric: Alert, Oriented x3, No Motor/Sensory Deficits, Normal Mood/Affect, sole polisher II-XII Norm as Tested Skin: Normal Color, Warm/Dry Results Lab Laboratory Tests 01/25/19 18:00 01/26/19 05:25 Assessment/Plan Assessment/Plan S/p CP, worsening SOB - Now resolved COPD- Stable -resume home treatments MARY -Compliant with CPAP PT is back to baseline. Pt is ok for discharge from pulmonary standpoint. I will see him in the office in 2-3 wks. FREDI AVENDANO DO Jan 26, 2019 07:24
[2019-01-26 08:00] VITALS: BP 162/96
--- NOTE | 2019-01-26 08:17 | Diagnostic Imaging Report ---
INDICATION: Chest pain PA and lateral chest obtained at 7:21 a.m. and compared to yesterday. Heart and mediastinal silhouette are normal in appearance. There is some linear atelectatic change in the left base. Lungs otherwise clear. There is no pneumothorax or pleural fluid. IMPRESSION: Mild linear atelectatic changes in the left base. Otherwise negative chest. Dictated by: Dictated on workstation # [id number]
[2019-01-26] MEDS ORDERED: RT-ALBUTEROL/IPRATROPIUM 3 ML (DUONEB) VIAL INH PRN (08:30)
[2019-01-26] MEDS ORDERED: ASPIRIN E.C. 81 MG (ECOTRIN) TAB PO SCH (09:00)
[2019-01-26] MEDS ORDERED: PANT40TA2 PO (09:15)
[2019-01-26] MEDS ORDERED: DICL75TA2 PO (09:15)
[2019-01-26] MEDS ORDERED: CYCL10TA9 PO (09:15)
[2019-01-26] MEDS ORDERED: ACET-2267 PO (09:15)
[2019-01-26] MEDS ORDERED: TIOT4MIS5 IH (09:15)
[2019-01-26] MEDS ORDERED: METF-399 PO (09:15)
[2019-01-26] MEDS ORDERED: GABA-488 PO ×2 (09:15)
[2019-01-26] MEDS ORDERED: TRAZ150T72 PO (09:15)
[2019-01-26] MEDS ORDERED: AMLO10TA7 PO (09:15)
[2019-01-26] MEDS ORDERED: ASPI325T32 PO (09:15)
[2019-01-26] MEDS ORDERED: MILN50TA PO (09:28)
--- NOTE | 2019-01-26 09:29 | NUR ---
SPOKE WITH THE PATIENT ABOUT HIS MEDICATIONS. HE STATES HE IS IN THE MIDDLE OF TRANSITIONING FROM [facility] TO [facility]. WE WENT OVER THE LIST OF WHAT EACH PHARMACY HAS FILLED RECENTLY AND HE VERIFIED HOW HE TAKES THEM. HE STATES HE HAS RECEIVED SOME MEDS THROUGH THE REPOSITORY AND SAMPLES BECAUSE HE WAS NEEDING SOME HELP FINANCIALLY AND HE HAS NOT USED UP THOSE SUPPLIES YET TO NEED TO GET THEM FILLED AT A RETAIL PHARMACY. [facility] FILLED: 01-08-19 PROTONIX 40MG DAILY 12-29-18 DICLOFENAC 75MG BID [facility] FILLED: 01-09-19 FLEXERIL 10MG TID PRN #30 (STATES HE USUALLY ONLY TAKES IT BID) 01-05-19 METFORMIN 1000MG BID #60 12-30-18 GABAPENTIN 300MG TID (TAKES 1 AM AND BEDTIME SCHEDULED, 1200 DOSE PRN) 11-19-18 TRAZODONE 150MG HS #90 10-20-18 NORVASC 10MG DAILY #30 (STATES HAS GOTTEN FROM REPOSITORY) 12111-27 LISINOPRIL 10MG HS #30 (STATES HAS GOTTEN FROM REPOSITORY) ADDITIONALLY PATIENT STATES HE TAKES THE FOLLOWING THAT HE HAS RECEIVED FROM REPOSITORY OR SAMPLES: VENTOLIN PRN BREO 100 DAILY SPIRIVA RESPIMAT DAILY SAVELLA BID PRAVASTATIN 40MG DAILY OTC MEDS: ASPIRIN 325MG DAILY TYLENOL 500MG 3 TABS BID I HAD A LIST FAXED OVER FROM [facility] TO VERIFY THE DOSES ON THE MEDS HE HAS RECEIVED SAMPLES OR THROUGH REPOSITORY. I HAVE LEFT A MESSAGE WITH A NURSE TO CALL ME BACK FOR CLARIFICATION ON THE SPIRIVA RESPIMAT DOSE AND SAVELLA. WILL UPDATE MED REC WHEN I HEAR BACK FROM THEM. Addendum: 01/26/19 at 1333 by DOMINGO RIVAS [facility] SPOKE WITH THE NURSE CECIL AT [facility] AT THIS TIME. SHE VERIFIED THE SAVELLA IS 100MG BID AUTHORIZED THROUGH PALS AND LAST NOTED JUL 2018. SHE STATES IT IS POSSIBLE THEY ARE MAILING IT DIRECTLY TO THE PATIENT NOW. SHE STATES SHE HAS NOT RECORD OF THE SPIRIVA RESPIMAT, IT WAS REPORTED THE SPIRIVA HANDIHALER. THE PATIENT DID TELL ME HE HAS BOTH HOWEVER HE PREFERS THE RESPIMAT. I CHANGED IT TO THE HANDIHALER ON THE MED REC AT THIS TIME SINCE I WAS UNABLE TO VERIFY A DOSE OR THAT HE HAS RECEIVED THE RESPIMAT.
[2019-01-26 10:07] LABS: ABG BASE EXCESS -0.4 MMOL/L (-2.5-2.5); ABG OXYGEN SATURATION 92 % (94-100); ABG PCO2 46 MMHG (35-45); ABG PO2 71 MMHG (79-93); ABG TCO2 26.2 MMOL/L (21.0-31.0)
[2019-01-26 10:12] LABS: ABG PH 7.34 (7.37-7.43); ALLENS TEST POSITIVE; PATIENT TEMP 97.6; VENTILATOR NO
[2019-01-26 12:00] VITALS: BP 171/102
[2019-01-26] MEDS ORDERED: MILN100T PO (13:23)
[2019-01-26] MEDS ORDERED: TIOT18CA2 IH (13:31)
--- NOTE | 2019-01-26 14:39 | History & Physical-Hospitalist ---
History of Present Illness HPI/Chief Complaint The patient is a 63-year-old white male who was admitted from the emergency room yesterday after presenting with a pain in his chest. He reports that he had been having a pulmonary function testing performed as an outpatient. He developed the chest pain which was right parasternal after he was given albuterol as a part of the pulmonary function testing. He uses albuterol at home and this has not ever happened before. He had no past history of heart disease. He reports that he is currently dieting. He has lost right at 100 pounds but is a bit frustrated as he is stuck at his present weight. He is a previous smoker but has stopped several years ago Source: patient Exam Limitations: no limitations Date Seen 01/26/19 Time Seen by a Provider: 14:33 Attending Physician Manny Madera MD PCP Ashleigh Benitez MD Referring Physician Date of Admission Jan 25, 2019 at 19:05 Home Medications & Allergies Home Medications Reviewed patient Home Medication Reconciliation performed by pharmacy medication reconciliations electroplating technician and/or nursing. Patients Allergies have been reviewed. Allergies Allergies Coded Allergies No Known Drug Allergies (Unverified05/01/17) Past Xfzvpel-Hklhvy-Ecgtkg Hx Past Med/Social Hx: Reviewed Nursing Past Med/Soc Hx Patient Social History Alcohol Use: Denies Use Recreational Drug Use: No Smoking Status: Former Smoker (3 PPD) Former Smoker, Quit: May 01, 1999 Type Used: Cigarettes 2nd Hand Smoke Exposure: No Recent Foreign Travel: No Contact w/other who traveled: No Recent Hopitalizations: No Recent Infectious Disease Expo: No Immunizations Up To Date Tetanus Booster (TDap): Unknown Date of Pneumonia Vaccine: March 11, 2016 Seasonal Allergies Seasonal Allergies: No Past Medical History Surgeries: Abdominal, Gallbladder, Tonsillectomy Currently Using CPAP: Yes Cardiac: High Cholesterol, Hypertension Reproductive: No Sexually Transmitted Disease: No HIV/AIDS: No Gastrointestinal: Abdominal Hernia, Gastroesophageal Reflux, Diverticulosis, Hepatitis, Polyps, Irritable Bowel Musculoskeletal: Degenerate Disk Disease, Arthritis, Chronic Back Pain Endocrine: Diabetes, Non-Insulin dep Loss of Vision: Bilateral Hearing Impairment: Hearing Aide Right History of Blood Disorders: No Adverse Reaction to Blood Allen: No Family History Heart Disease, Cancer, Diabetes, Hypertension Review of Systems Constitutional: see HPI EENTM: no symptoms reported Respiratory: see HPI, cough, phlegm, wheezing Cardiovascular: chest pain Gastrointestinal: no symptoms reported Genitourinary: no symptoms reported Musculoskeletal: no symptoms reported Skin: no symptoms reported Psychiatric/Neurological: No Symptoms Reported Physical Exam Physical Exam Vital Signs Vital Signs - First Documented Capillary Refill : Less Than 3 Seconds Height, Weight, BMI Height: 5'9.00" Weight: 325lbs. 0.0oz. 147.913164fi; 48.0 BMI Method:Stated General Appearance: No Apparent Distress, WD/WN Eyes: Bilateral Eye Normal Inspection HEENT: Normal ENT Inspection Neck: Full Range of Motion, Normal Inspection, Non Tender Respiratory: Chest Non Tender, Lungs Clear, Normal Breath Sounds, No Accessory Muscle Use, No Respiratory Distress Cardiovascular: Regular Rate, Rhythm, No Edema, No Gallop, No JVD, No Murmur, Normal Peripheral Pulses Gastrointestinal: Normal Bowel Sounds, Other (morbidly obese) Back: Normal Inspection, No CVA Tenderness, No Vertebral Tenderness Extremity: Normal Capillary Refill, Normal Inspection, Normal Range of Motion, Non Tender, No Calf Tenderness, No Pedal Edema Neurologic/Psychiatric: Alert, Oriented x3, No Motor/Sensory Deficits, Normal Mood/Affect Skin: Normal Color, Warm/Dry Lymphatic: No Adenopathy Results Results/Procedures Labs Laboratory Tests 01/25/19 18:00 01/26/19 05:25 Patient resulted labs reviewed. Assessment/Plan Admission Diagnosis 1 chest pain. 2.COPD. 3.morbid obesity. 4.diabetes type II Admission Status: Observation Clinical Quality Measures DVT/VTE Risk/Contraindication: Risk Factor Score Per Nursin RFS Level Per Nursing on Admit: 3=High MANNY MADERA MD Jan 26, 2019 14:38
[2019-01-26] MEDS ORDERED: traZODone 150 MG (DESYREL) TABLET PO SCH (14:44)
[2019-01-26] MEDS ORDERED: GABAPENTIN 300 MG (NEURONTIN) CAP PO PRN (14:45)
[2019-01-26] MEDS ORDERED: RT-ALBUTEROL SULF 2.5 MG/3 ML PRE-MIX VIAL IH PRN (14:45)
--- NOTE | 2019-01-26 14:57 | Discharge Inst-Simple/Standard ---
Discharge Inst-Standard Patient Instructions/Follow Up Plan of Care/Instructions/FU: Medications as listed on the discharge sequence. Appointment with Dr. Chow as an outpatient. Continue with your diet plans Activity as Tolerated: Yes Discharge Diet: ADA Diet MELANIE MADERA MD Jan 26, 2019 14:57
[2019-01-26 15:25] VITALS: BP 154/94
[2019-01-26] MEDS ORDERED: GABAPENTIN 300 MG (NEURONTIN) CAP PO SCH (21:00)
[2019-01-26] MEDS ORDERED: CYCLOBENZAPRINE 10 MG (FLEXERIL) TAB PO SCH (21:00)
[2019-01-26] MEDS ORDERED: lisINopril 10 MG (PRINIVIL) TABLET PO SCH (21:00)
[2019-01-27] MEDS ORDERED: ASPIRIN E.C. 325 MG (ECOTRIN) TABLET PO SCH (09:00)
[2019-01-27] MEDS ORDERED: PANTOPRAZOLE 40 MG (PROTONIX) TAB PO SCH (09:00)
== END 2019-01-26 15:55 | disposition home or self-care (01) ==
LOC: EDUNIT# 17:48 → ER 17:50 → 4TH 19:05
PROVIDERS: ADMIT Internal Medicine; ATTEND Internal Medicine
DX: R07.9 Chest pain, unspecified (principal); J44.9 Chronic obstructive pulmonary disease, unspecified; E78.00 Pure hypercholesterolemia, unspecified; I10 Essential (primary) hypertension; E11.9 Type 2 diabetes mellitus without complications; G47.33 Obstructive sleep apnea (adult) (pediatric); M19.91 Primary osteoarthritis, unspecified site; K21.9 Gastro-esophageal reflux disease without esophagitis; K58.9 Irritable bowel syndrome, unspecified; K57.90 Diverticulosis of intestine, part unspecified, without perforation or abscess without bleeding; Z86.010 Personal history of colon polyps; E66.01 Morbid (severe) obesity due to excess calories; Z68.42 Body mass index [BMI] 45.0-49.9, adult; Z87.891 Personal history of nicotine dependence; Z79.899 Other long term (current) drug therapy; Z79.84 Long term (current) use of oral hypoglycemic drugs
CPT/HCPCS: 36415; 36600; 71045; 71046; 80053; 80061; 81000; 82150; 82550; 82553; 82805; 82962; 83690; 83735; 83874; 83880; 84484; 85025; 85610; 85730; 93005; 93041; G0378

== ENCOUNTER → 2019-01-25 | Outpatient (CLI) | payer MEDICARE, MEDICAID ==
[~2019-01-25] MED LIST changes: +ACET-2267 PO; +AMLO10TA7 PO; +ASPI325T32 PO; -IOHEXOL 350 MG/ML 100 ML (OMNIPAQUE 350) VIAL IV ONE; +METF-399 PO; -NS 100 ML (IVPB) BAG IV ONE; -RECEIVED CONTRAST (Hold Metformin) IV SCH; +RT-ALBUTEROL SULF 2.5 MG/3 ML PRE-MIX VIAL INH ONE; +TIOT4MIS5 IH; +TRAZ150T72 PO
== END ==
LOC: RT 16:49
PROVIDERS: ATTEND Nurse Practitioner Family
DX: J44.9 Chronic obstructive pulmonary disease, unspecified (principal); J30.9 Allergic rhinitis, unspecified; F17.201 Nicotine dependence, unspecified, in remission; G47.33 Obstructive sleep apnea (adult) (pediatric); R06.09 Other forms of dyspnea
CPT/HCPCS: 82962; 94060; 94726; 94729

== ENCOUNTER 2019-01-29 17:33 | Emergency (ER) | payer MEDICARE, MEDICAID ==
[~2019-01-29] VITALS: Ht 180.3 cm; Wt 181.4 kg
[~2019-01-29 17:33] MED LIST changes: +ACET-2267 PO; +AMLO10TA7 PO; +ASPI325T32 PO; +METF-399 PO; +TIOT4MIS5 IH; +TRAZ150T72 PO
--- OUTSIDE RECORDS SUMMARY | 2019-01-29 17:38 | XMS REPORT | Encounter Summary ---
Author Author [facility] Organization [facility] Address Unknown Phone Unavailable Care Team Providers Care Environmental Service Aide Name Role Phone PCP Unavailable Reason for Visit * Reason Comments Financial/Insurance BARAITRICS Questions Encounter Details Care Team Description Date Type Department Lilly-Morgan Joanna Financial/Insurance Questions (BARAITRICS) 01/26/2019 Telephone [facility] [address] [place] [address] [address] [place] [address] Social History Date Tobacco Use Types Packs/Day Years Used Quit: 2003 Former Smoker Smokeless Tobacco: Never Used Alcohol Use Drinks/Week oz/Week Comments Yes 1-2 times a month Sex Assigned at Date Recorded Not on file Industry Job Start Date Occupation Not on file Not on file Not on file Travel End Travel History Travel Start No recent travel history available. documented as of this encounter Miscellaneous Notes * Telephone Encounter - LillyJoanna Bagley - 01/26/2019 10:43 AM CDT Date verified: 01/26/19 Verification Source/Phone# (if applicable): LIVE [phone] SHE VERIFIED Reference #: [id number] In Network for Facility: YES Ins Plan and ID#: MEDICARE ID # [id number] Group #: NO Subscriber name: JSOE CORTES Subscriber : 55 Effective Date PART A : 02/08/18 PART B 09/10/18 Auth required: Y/N NO CPT/HCPCS: [id number] Name of drug/procedure: LAPOSCOPIC BYPASS GASTRIC SLEEVE MEDICARE A&B - 2019 BENEFIT SUMMARY: PART A: DAYS REFRESH AFTER 60 CONSECUTIVE OUTPT DAYS DAYS 1-60 $1364 DEDUCTIBLE DAYS 61-90 $341/DAY COPAY DAYS 91-150 (USING ANY LIFETIME RESERVE DAYS) $682DAY COPAY DAYS > 150 PT PORTION 100%; after a 3-day minimum medically necessary inpatient hospital stay for a related illness or injury. PART A/ SNF BENEFITS: IN 2018: DAYS 1-20 PT PORTION $0; DAYS 21-100 $170.50/DAY COPAY; DAYS > 100 PT PORTION 100% PART B IN 2018: DEDUCTIBLE $185 WITH 80% REIMBURSEMENT OF ALLOWABLE, NO OUT OF POCKET MAXIMUM MEDICARE WILL PAY FOR DRUGS INFUSED THROUGH AN ITEM OF DME, LIKE AN INFUSION PUMP, OR DRUGS GIVEN BY A NEBULIZER WHEN GIVEN BY A LICENSED MEDICAL PROVIDER. PART B WILL COVER IMMUNOSUPPRESSIVE DRUGS IF COVERED THE TRANSPLANT, EVEN SECONDARY PAYER No Case Management, No transpl SECONDARY INSURANCE Date verified: 01/26/19 Verification Source/Phone# (if applicable): [phone] LIVE Reference #: [id number] In Network for Facility: YES Ins Plan and ID#: [facility] ID # [id number] Group #: NO Subscriber name: JOSE CORTES Subscriber : 55 Effective Date: 08/10/18 Deductible: NO Amount Met: NO OOP: NO Amount Met: NO Coinsurance rate: 20% MEDICARE ALLOWABLE OV/Spec Copay: NO Applied to OOP: Y /N NO LTM (if applicable): UNLIMTED Auth required: Y/N YES CPT/HCPCS: [id number] Name of drug/procedure: LAPOSCOPIC BYPASS GASTRIC SLEEVE Contact Source for Auth/Referral: [facility] Phone (if applies): [phone] Auth #: NO Authorization Dates to/from: NO documented in this encounter Plan of Treatment Not on filedocumented as of this encounter Visit Diagnoses Not on filedocumented in this encounter
--- OUTSIDE RECORDS SUMMARY | 2019-01-29 17:38 | XMS REPORT | Encounter Summary ---
Author Author [facility] Organization [facility] Address Unknown Phone Unavailable Care Team Providers Care Nutrition Director Name Role Phone PCP Unavailable Reason for Visit * Reason Comments Financial/Insurance BARAITRICS Questions Encounter Details Care Team Description Date Type Department Lilly-Morgan Joanna Financial/Insurance Questions (BARAITRICS) 01/27/2019 Telephone [facility] [address] [place] [address] [address] [place] [address] Social History Date Tobacco Use Types Packs/Day [...] * Telephone Encounter - LillyJoanna Bagley - 01/27/2019 3:35 PM CDT UPDATE ON MEDICARE ID # Date verified: 01/26/19 Verification Source/Phone# (if applicable): LIVE [phone] SHE VERIFIED Reference #: [id number] In Network for Facility: YES Ins Plan and ID#: MEDICARE ID # [id number] Group #: NO Subscriber name: JOSE CORTES Subscriber : 55 Effective Date PART A : 02/08/18 PART B 09/10/18 Auth required: Y/N NO CPT/HCPCS: [id number] Name of drug/procedure: LAPOSCOPIC BYPASS GASTRIC SLEEVE [...] Date verified: 01/26/19 Verification Source/Phone# (if applicable): [phone] LIVE Reference #: [id number] In Network for Facility: YES Ins Plan and ID#: [facility] ID # [id number] Group #: NO Subscriber name: JOSE CORTES Subscriber : 55 Effective Date: 08/10/18 Deductible: NO Amount Met: NO OOP: NO Amount Met: NO Coinsurance rate: 20% MEDICARE ALLOWABLE OV/Spec Copay: NO Applied to OOP: Y /N NO LTM (if applicable): UNLIMTED Auth required: Y/N YES CPT/HCPCS: [id number] Name of drug/procedure: LAPOSCOPIC BYPASS GASTRIC SLEEVE Contact Source for Auth/Referral: [facility] Phone (if applies): [phone] Auth #: NO Authorization Dates to/from: NO documented in this encounter Plan of Treatment Not on filedocumented as of this encounter Visit Diagnoses Not on filedocumented in this encounter
--- OUTSIDE RECORDS SUMMARY | 2019-01-29 17:38 | XMS REPORT | Clinical Summary ---
Author Author [facility] Organization [facility] Address Unknown Phone Unavailable Care Team Providers Care Metal Inspector Name Role Phone PCP Unavailable Source Comments Some departments are not documenting in the electronic medical record. If you do not see the information that you expected, contact Release of Information in the Health Information Management department at [phone] for further assistance in locating additional records.[facility] Allergies No Known Allergies Medications End Date Status Medication Sig Dispensed Refills Start Date Active metFORMIN (GLUCOPHAGE) Take 1,000 mg 0 1,000 mg tablet by mouth twice daily with meals. Active aspirin 325 mg tablet Take 325 mg 0 by mouth daily. Take with food. Active amLODIPine (NORVASC) 10 Take 10 mg by 0 mg tablet mouth daily. Active pantoprazole DR Take 40 mg by 0 (PROTONIX) 40 mg tablet mouth daily. Active fluticasone-vilanterol(+) Inhale 1 puff 0 (BREO ELLIPTA) 100-25 mcg by mouth into inhalation disk the lungs daily. Active tiotropium bromide Inhale 2 0 (SPIRIVA RESPIMAT) 2.5 puffs by mcg/actuation inhaler mouth into the lungs daily. Active albuterol (PROAIR HFA, Inhale 2 0 VENTOLIN HFA, OR puffs by PROVENTIL HFA) 90 mouth into mcg/actuation inhaler the lungs as Needed for Wheezing or Shortness of Breath. Shake well before use. Active oxyCODONE/acetaminophen Take 1 tablet 0 (PERCOCET; ENDOCET; by mouth ROXICET) 5/325 mg tablet every 4 hours as needed for Pain Active pravastatin (PRAVACHOL) Take 20 mg by 0 20 mg tablet mouth at bedtime daily. Active traZODone (DESYREL) 300 Take 300 mg 0 mg tablet by mouth at bedtime daily. Active lisinopril-hydrochlorothi Take 1 tablet 0 azide (PRINZIDE, by mouth ZESTORETIC) 10-12.5 mg every tablet morning. Active gabapentin (NEURONTIN) Take 600 mg 0 600 mg tablet by mouth every 8 hours. Active diclofenac sodium DR Take 75 mg by 0 (VOLTAREN) 75 mg tablet mouth twice daily. Take with food. Active cyclobenzaprine Take 10 mg by 0 (FLEXERIL) 10 mg tablet mouth three times daily as needed for Muscle Cramps. Active acetaminophen (TYLENOL) Take 500 mg 0 500 mg tablet by mouth at bedtime daily. Max of 4,000 mg of acetaminophen in 24 hours. 01/26/2019 Discontinued acetaminophen (TYLENOL) Take 500 mg 0 500 mg tablet by mouth three times daily. Max of 4,000 mg of acetaminophen in 24 hours. Active Problems Not on file Encounters Care Team Description Date Type Specialty Joanna Pascal Financial/Insurance Questions ([place]) 01/27/2019 Telephone General Surgery Joanna Pascal Financial/Insurance Questions ([place]) 01/26/2019 Telephone General Surgery from Last 3 Months Social History Date Tobacco Use Types Packs/Day Years Used Quit: 2003 Former Smoker Smokeless Tobacco: Never Used Alcohol Use Drinks/Week oz/Week Comments Yes 1-2 times a month Sex Assigned at Date Recorded Not on file Industry Job Start Date Occupation Not on file Not on file Not on file Travel End Travel History Travel Start No recent travel history available. Last Filed Vital Signs Time Taken Vital Sign Reading - Blood Pressure - - Pulse - - Temperature - - Respiratory Rate - - Oxygen Saturation - - Inhaled Oxygen - Concentration 01/26/2019 9:58 AM CDT Weight 146.9 kg (323 lb 14.4 oz) 01/26/2019 9:58 AM CDT Height 175.3 cm (5' 9") 01/26/2019 9:58 AM CDT Body Mass Index 47.83 Plan of Treatment Health Maintenance Due Date Last Done Comments HEPATITIS C SCREENING 1955 PHYSICAL (COMPREHENSIVE) 1962 EXAM HIV SCREENING 1970 DTAP/TDAP VACCINES (1 - 1973 Tdap) COLORECTAL CANCER 2005 SCREENING SHINGLES RECOMBINANT 2005 VACCINE (1 of 2) INFLUENZA VACCINE 06/10/2018 Results Not on filefrom Last 3 Months Insurance Type Payer Benefit Subscriber ID Effective Phone Address Plan / Dates Group Medicaid [facility] MEDICAID [facility] xxxxxxxxxxx 2018-P [place] [place] Advance Directives Patient has advance care planning documents on file. For more information, please contact: [facility] [address] [place] [address]
[2019-01-29] MEDS ORDERED: meTOprolol 5 MG/5 ML (LOPRESSOR) VIAL IV ONE (17:45)
--- OUTSIDE RECORDS SUMMARY | 2019-01-29 17:49 | XMS REPORT | Continuity of Care Document ---
Author Author [facility] Organization [facility] Address Unknown Phone Unavailable Allergies Active Description Code Type Severity Reaction Onset Reported/Identified Relationship to Patient Clinical Status Yes NO KNOWN DRUG ALLERGIES UNKNOWN NO KNOWN DRUG ALLERG Yes No Known Drug Allergies [id number] Drug Allergy Mild N/A 04/16/2008 Yes No Known Drug Allergies [id number] Drug Allergy Unknown N/A 05/01/2017 Medications There [...] 08/22/2015 DORI ANAYA MD Ot Z79.899 OTHER MEAT HOSTESS (CURRENT) DRUG THERAPY 09/14/2015 KYA MUNIZ, [place] [...] FACP CCDS Ot I10 09/15/2015 RAYA MUNIZ [facility], ALI FACP CCDS Ot R06.09 [...] FACP CCDS Ot R07.89 12/05/2015 RAYA MUNIZ [facility], ALI FACP CCDS Ot E11.9 12/05/2015 RAYA MUNIZ [facility], ALI FACP CCDS Ot E66.01 12/05/2015 RAYA MUNIZ [facility], ALI FACP CCDS Ot E78.4 12/05/2015 RAYA MUNIZ [facility], ALI FACP CCDS Ot I10 12/05/2015 RAYA MUNIZ [facility], ALI FACP CCDS Ot R06.09 12/05/2015 RAYA MUNIZ [facility], ALI FACP CCDS Ot R07.89 12/05/2015 JOSIE GURROLA 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 Ot G47.19 12/05/2015 IZABELA JOSIE E 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 Ot R06.09 12/05/2015 IZABELA JOSIE E 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 Ot R06.83 12/11/2015 IZABELA JOSIE E 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 Ot G47.19 12/11/2015 IZABELA JOSIE E 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 Ot R06.09 12/11/2015 NADIR GURROLAINE E 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 Ot R06.83 12/27/2015 KYA MUNIZ, [place] L Ot E11.9 12/27/2015 RAYA MUNIZ [facility], ALI FACP CCDS Ot E11.9 12/27/2015 RAYA MUNIZ [facility], ALI FACP CCDS Ot E66.01 12/27/2015 RAYA MUNIZ [facility], ALI FACP CCDS Ot E78.4 12/27/2015 RAYA MUNIZ [facility], ALI FACP CCDS Ot I10 [...] GURROLA APRN Ot G47.19 01/15/2016 JOSIE GURROLA 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 Ot R06.09 01/15/2016 JOSIE GURROLA 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 Ot R06.83 01/16/2016 JOSIE GURROLA APRN Ot G47.33 OBSTRUCTIVE SLEEP APNEA (ADULT) (PEDIATR 01/16/2016 JOSIE GURROLA 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 Ot I10 ESSENTIAL (PRIMARY) HYPERTENSION 01/19/2016 KYA [...] CCDS Ot R07.89 01/19/2016 NADIR GURROLAINE E 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 Ot G47.19 01/19/2016 IZABELA JOSIE E 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 Ot R06.09 01/19/2016 IZABELA JOSIE E 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 Ot R06.83 01/23/2016 ALEXIS HOOVER MD (DDU) Ot J44.9 01/23/2016 ALEXIS HOOVER MD (DDU) Ot Z02.71 02/03/2016 NADIR GURROLAINE E 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 Ot G47.33 02/03/2016 IZABELA, JOSIE E 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 Ot I10 03/04/2016 IZABELA JOSIE E 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 Ot G47.19 OTHER HYPERSOMNIA 03/04/2016 IZABELANADIRJOSIE E 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 Ot R06.09 OTHER FORMS OF DYSPNEA 03/04/2016 IZABELANADIRJOSIE E 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 Ot R06.83 SNORING 03/04/2016 IZABELA JOSIE E 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 Ot F17.201 NICOTINE DEPENDENCE, UNSPECIFIED, IN REM 03/04/2016 IZABELANADIRJOSIE E 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 Ot J44.9 CHRONIC OBSTRUCTIVE PULMONARY DISEASE, U 03/04/2016 IZABELA JOSIE E 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 Ot J45.909 UNSPECIFIED ASTHMA, UNCOMPLICATED 04/15/2016 IZABELA, JOSIE E 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 Ot G47.19 OTHER HYPERSOMNIA 04/15/2016 IZABELANADIRJOSIE E 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 Ot R06.09 OTHER FORMS OF DYSPNEA 04/15/2016 IZABELANADIRJOSIE E 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 Ot R06.83 SNORING 04/15/2016 IZABELA, JOSIE E 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 Ot F17.201 NICOTINE DEPENDENCE, UNSPECIFIED, IN REM 04/15/2016 IZABELA, JOSIE E 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 Ot J44.9 CHRONIC OBSTRUCTIVE PULMONARY DISEASE, U 04/15/2016 IZABELA JOSIE E 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 Ot J45.909 UNSPECIFIED ASTHMA, UNCOMPLICATED 04/16/2016 IZABELA, JOSIE E 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 Ot G47.19 OTHER HYPERSOMNIA 04/16/2016 IZABELA JOSIE E 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 Ot R06.09 OTHER FORMS OF DYSPNEA 04/16/2016 IZABELA JOSIE E 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 Ot R06.83 SNORING 04/16/2016 JOSIE GURROLA APRN Ot F17.201 NICOTINE DEPENDENCE, UNSPECIFIED, IN REM 04/16/2016 JOSIE GURROLA APRN Ot J44.9 CHRONIC OBSTRUCTIVE PULMONARY DISEASE, U 04/16/2016 JOSIE GURROLA APRN Ot J45.909 UNSPECIFIED ASTHMA, UNCOMPLICATED 04/18/2016 NIKI AKINS 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 Ot M54.41 LUMBAGO WITH SCIATICA, RIGHT SIDE 04/18/2016 NIKI AKINS 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 Ot M54.42 LUMBAGO WITH SCIATICA, LEFT SIDE [...] Ot E78.4 OTHER HYPERLIPIDEMIA 03/22/2017 RAYA MUNIZ [facility], ALI FACP CCDS Ot I10 ESSENTIAL (PRIMARY) HYPERTENSION 03/22/2017 RAYA MUNIZ [facility], ALI FACP CCDS Ot R06.09 OTHER FORMS OF DYSPNEA 03/22/2017 RAYA MUNIZ [facility], ALI FACP CCDS Ot R07.89 OTHER CHEST PAIN 03/22/2017 JOSIE GURROLA APRN Ot G47.19 OTHER HYPERSOMNIA 03/22/2017 JOSIE GURROLA APRN Ot R06.09 OTHER FORMS OF DYSPNEA 03/22/2017 JOSIE GURROLA 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 Ot R06.83 SNORING 03/22/2017 ALEXIS HOOVER MD [...] 03/22/2017 DAO MICHAELS SHARIFA Sharp Ot Z79.82 MEAT HOSTESS (CURRENT) USE OF ASPIRIN 03/22/2017 DAO MICHAELS SHARIFA Sharp Ot Z79.84 RESIDENTIAL (CURRENT) USE OF ORAL HYPOGLYC 03/22/2017 DAO MICHAELS SHARIFA Sharp Ot Z79.899 OTHER MEAT HOSTESS (CURRENT) DRUG THERAPY 03/22/2017 DAO MICHAELS SHARIFA [...] R07.89 OTHER CHEST PAIN 03/22/2017 JOSIE GURROLA 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 Ot G47.19 OTHER HYPERSOMNIA 03/22/2017 JOSIE GURROLA 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 Ot R06.09 OTHER FORMS OF DYSPNEA 03/22/2017 JOSIE GURROLA 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 Ot R06.83 SNORING 03/22/2017 ALEXIS HOOVER MD (DDU) Ot J44.9 CHRONIC OBSTRUCTIVE PULMONARY DISEASE, U 03/22/2017 ALEXIS HOOVER MD (DDU) Ot Z02.71 ENCOUNTER FOR DISABILITY DETERMINATION 03/22/2017 NIKI AKINS 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 Ot M54.41 LUMBAGO WITH SCIATICA, RIGHT SIDE 03/22/2017 NIKI AKINS 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 Ot M54.42 LUMBAGO WITH SCIATICA, LEFT SIDE 03/22/2017 NIKI AKINS 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 Ot M54.6 PAIN IN THORACIC SPINE 03/22/2017 NIKI AKINS 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 Ot M54.41 LUMBAGO WITH SCIATICA, RIGHT SIDE [...] UNSPECIFIED 03/24/2017 DAO SHARIFA MICHAELS Ot Z79.82 MEAT HOSTESS (CURRENT) USE OF ASPIRIN 03/24/2017 DAO SHARIFA MICHAELS Ot Z79.84 RESIDENTIAL (CURRENT) USE OF ORAL HYPOGLYC 03/24/2017 DAO SHARIFA MICHAELS Ot Z79.899 OTHER MEAT HOSTESS (CURRENT) DRUG THERAPY 03/24/2017 DAO SHARIFA MICHAELS [...] DC DO Ot Y92.[address] IN [facility] NON-[facility] (PRIVATE 04/10/2017 SHARIFA DC DO Ot Y99.8 OTHER EXTERNAL CAUSE STATUS 04/10/2017 SHARIFA DC DO Ot Z79.82 RESIDENTIAL (CURRENT) USE OF ASPIRIN 04/10/2017 SHARIFA DC DO Ot Z79.84 RESIDENTIAL (CURRENT) USE OF ORAL HYPOGLYC 04/10/2017 SHARIFA DC DO Ot Z79.899 OTHER MEAT HOSTESS (CURRENT) DRUG THERAPY 04/10/2017 SANFORD BOLAND MD [...] R06.83 SNORING 04/10/2017 KIKO MUNIZ, ALEXIS [place] ([facility]) Ot J44.9 CHRONIC OBSTRUCTIVE PULMONARY DISEASE, U 04/10/2017 KIKO MUNIZ, ALEXIS [place] ([facility]) Ot Z02.71 ENCOUNTER FOR DISABILITY DETERMINATION 04/10/2017 AKINSNIKI Tripathi LIZZIE Ot M54.41 LUMBAGO WITH SCIATICA, RIGHT SIDE 04/10/2017 AKINSNIKI 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 Ot M54.42 LUMBAGO WITH SCIATICA, LEFT SIDE 04/10/2017 MABLE NIKI Aubrie SAMUEL Ot M54.6 PAIN IN THORACIC SPINE 04/10/2017 MABLENIKI Aubrie 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 Ot M54.41 LUMBAGO WITH SCIATICA, RIGHT SIDE [...] STRIKE 04/13/2017 SHARIFA DC DO Ot Y92.[address] [facility] [address] IN [facility] NON[facility] 04/13/2017 DAO MICHAELS SHARIFA Aron Ot Y99.8 OTHER EXTERNAL CAUSE STATUS 04/13/2017 SHARIFA DC DO Ot Z79.82 MEAT HOSTESS (CURRENT) USE OF ASPIRIN 04/13/2017 SHARIFA DC DO Ot Z79.84 MEAT HOSTESS (CURRENT) USE OF ORAL HYPOGLYC 04/13/2017 SHARIFA DC DO Ot Z79.899 OTHER RESIDENTIAL (CURRENT) DRUG THERAPY 04/23/2017 SAN[place]ORD BOLAND MD [...] OTHER FORMS OF DYSPNEA 04/23/2017 RAYA MUNIZ [facility], ALI FACP CCDS Ot R07.89 OTHER CHEST PAIN 04/23/2017 JOSIE GURROLA APRN Ot G47.19 OTHER HYPERSOMNIA 04/23/2017 JOSIE GURROLA APRN Ot R06.09 OTHER FORMS OF DYSPNEA 04/23/2017 JOSIE GURROLA 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 Ot R06.83 SNORING 04/23/2017 ALEXIS HOOVER MD (DDU) Ot J44.9 CHRONIC OBSTRUCTIVE PULMONARY DISEASE, U 04/23/2017 ALEXIS HOOVER MD (DDU) Ot Z02.71 ENCOUNTER FOR DISABILITY DETERMINATION 04/23/2017 NIKI AKINS APRN Ot M54.41 LUMBAGO WITH SCIATICA, RIGHT SIDE 04/23/2017 NIKI AKINS APRN Ot M54.42 LUMBAGO WITH SCIATICA, LEFT SIDE 04/23/2017 NIKI AKINS 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 Ot M54.6 PAIN IN THORACIC SPINE 04/23/2017 [...] STRIKE 04/23/2017 SHARIFA DC DO Ot Y92.[address] [facility] [address] IN [facility] NON[facility] (PRIVATE 04/23/2017 DAO MICHAELS SHARIFA Aron Ot Y99.8 OTHER EXTERNAL CAUSE STATUS 04/23/2017 SHARIFA DC DO Ot Z79.82 RESIDENTIAL (CURRENT) USE OF ASPIRIN 04/23/2017 SHARIFA DC DO Ot Z79.84 MEAT HOSTESS (CURRENT) USE OF ORAL HYPOGLYC 04/23/2017 SHARIFA DC DO Ot Z79.899 OTHER RESIDENTIAL (CURRENT) DRUG THERAPY 04/23/2017 NIKI AKINS APRN Ot M54.41 LUMBAGO WITH SCIATICA, RIGHT SIDE 04/23/2017 NIKI AKINS APRN Ot M54.42 LUMBAGO WITH SCIATICA, LEFT SIDE 04/23/2017 NIKI AKINS APRN Ot M54.6 PAIN IN THORACIC SPINE 04/24/2017 NIKI AKINS APRN Ot M54.41 LUMBAGO WITH SCIATICA, RIGHT SIDE 04/24/2017 NIKI AKINS APRN Ot M54.42 LUMBAGO WITH SCIATICA, LEFT SIDE 04/24/2017 AKINS, NIKI R 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 Ot M54.6 PAIN IN THORACIC SPINE 04/28/2017 [...] R07.89 OTHER CHEST PAIN 04/28/2017 JOSIE GURROLA 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 Ot G47.19 OTHER HYPERSOMNIA 04/28/2017 JOSIE GURROLA 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 Ot R06.09 OTHER FORMS OF DYSPNEA 04/28/2017 JOSIE GURROLA 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 Ot R06.83 SNORING 04/28/2017 ALEXIS HOOVER MD (ADAN) Ot J44.9 CHRONIC OBSTRUCTIVE PULMONARY DISEASE, U 04/28/2017 ALEXIS HOOVER MD (ADAN) Ot Z02.71 ENCOUNTER FOR DISABILITY DETERMINATION 04/28/2017 NIKI AKINS APRN Ot M54.41 LUMBAGO WITH SCIATICA, RIGHT SIDE 04/28/2017 NIKI AKINS 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 Ot M54.42 LUMBAGO WITH SCIATICA, LEFT SIDE 04/28/2017 NIKI AKINS 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 Ot M54.6 PAIN IN THORACIC SPINE 04/28/2017 NIKI AKINS 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 Ot M54.41 LUMBAGO WITH SCIATICA, RIGHT SIDE 05/01/2017 ANILA LAWRENCE DO Ot K21.9 GASTRO-ESOPHAGEAL REFLUX DISEASE WITHOUT 05/01/2017 ANILA LAWRENCE DO Ot Z01.818 ENCOUNTER FOR OTHER PREPROCEDURAL EXAMIN 05/01/2017 ANILA LAWRENCE DO Ot Z83.79 FAMILY HISTORY OF OTHER DISEASES OF THE 05/06/2017 JOSIE GURROLA APRN Ot G47.19 OTHER HYPERSOMNIA 05/06/2017 JOSIE GURROLA 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 Ot R06.09 OTHER FORMS OF DYSPNEA 05/06/2017 JOSIE GURROLA APRN Ot R06.83 SNORING 05/06/2017 JOSIE GURROLA APRN Ot F17.201 NICOTINE DEPENDENCE, UNSPECIFIED, IN REM 05/06/2017 JOSIE GURROLA 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 Ot J44.9 CHRONIC OBSTRUCTIVE PULMONARY DISEASE, U 05/06/2017 JOSIE GURROLA 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 Ot J45.909 UNSPECIFIED ASTHMA, UNCOMPLICATED 05/06/2017 ANILA LAWRENCE DO Ot R07.9 CHEST PAIN, UNSPECIFIED 05/06/2017 ANILA LAWRENCE DO Ot Z01.818 ENCOUNTER FOR OTHER PREPROCEDURAL EXAMIN 05/06/2017 ANILA LAWRENCE DO Ot Z86.010 PERSONAL HISTORY OF COLONIC POLYPS 05/06/2017 NIKI AKINS 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 Ot M54.41 LUMBAGO WITH SCIATICA, RIGHT SIDE 05/06/2017 NIKI AKINS 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 Ot M54.42 LUMBAGO WITH SCIATICA, LEFT SIDE 05/06/2017 NIKI AKINS 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 Ot M54.6 PAIN IN THORACIC SPINE 05/06/2017 JOSIE GURROLA 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 Ot G47.19 OTHER HYPERSOMNIA 05/06/2017 JOSIE GURROLA 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 Ot R06.09 OTHER FORMS OF DYSPNEA 05/06/2017 JOSIE GURROLA 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 Ot R06.83 SNORING 05/06/2017 JOSIE GURROLA APRN [...] POLYP 05/06/2017 ANILA LAWRENCE DO Ot Z79.84 MEAT HOSTESS (CURRENT) USE OF ORAL HYPOGLYC 05/06/2017 ANILA LAWRENCE DO Ot Z79.899 OTHER RESIDENTIAL (CURRENT) DRUG THERAPY 05/08/2017 NIKI AKINS APRN Ot M54.41 LUMBAGO WITH SCIATICA, RIGHT SIDE 05/08/2017 NIKI AKINS 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 Ot M54.42 LUMBAGO WITH SCIATICA, LEFT SIDE [...] POLYP 05/13/2017 ANILA LAWRENCE DO Ot Z79.84 MEAT HOSTESS (CURRENT) USE OF ORAL HYPOGLYC 05/13/2017 ANILA LAWRENCE DO Ot Z79.899 OTHER RESIDENTIAL (CURRENT) DRUG THERAPY 05/16/2017 SANFORD BOLAND MD [...] ENCOUNTER FOR DISABILITY DETERMINATION 05/16/2017 NIKI AKINS 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 Ot M54.41 LUMBAGO WITH SCIATICA, RIGHT SIDE 05/16/2017 NIKI AKINS 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 Ot M54.42 LUMBAGO WITH SCIATICA, LEFT SIDE 05/16/2017 NIKI AKINS 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 Ot M54.6 PAIN IN THORACIC SPINE 05/16/2017 NIKI AKINS 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 Ot M54.41 LUMBAGO WITH SCIATICA, RIGHT SIDE [...] DISEASE OF PANCREAS, UNSPECIFIED 05/28/2017 NIKI AKINS 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 Ot E11.9 TYPE 2 DIABETES MELLITUS WITHOUT COMPLIC 05/28/2017 NIKI AKINS 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 Ot 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 05/28/2017 NIKI AKINS 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 Ot K86.9 DISEASE OF PANCREAS, UNSPECIFIED 05/28/2017 NIKI AKINS R 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 Ot E11.9 TYPE 2 DIABETES MELLITUS WITHOUT COMPLIC 05/28/2017 NIKI AKINS 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 Ot 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 05/28/2017 NIKI AKINS R 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 Ot K86.9 DISEASE OF PANCREAS, UNSPECIFIED 08/18/2017 NIKI AKINS R 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 Ot D73.9 DISEASE OF SPLEEN, UNSPECIFIED 08/18/2017 NIKI AKINS R 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 Ot K86.89 OTHER SPECIFIED DISEASES OF PANCREAS 09/04/2017 NIKI AKINS R 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 Ot D73.9 DISEASE OF SPLEEN, UNSPECIFIED 09/04/2017 NIKI AKINS R 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 Ot K86.89 OTHER SPECIFIED DISEASES OF PANCREAS [...] DEPENDENCE ON SUPPLEMENTAL OXYGEN 01/23/2018 NIKI AKINS 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 Ot E11.9 TYPE 2 DIABETES MELLITUS WITHOUT COMPLIC 01/23/2018 NIKI AKINS 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 Ot 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 01/23/2018 NIKI AKINS R 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 Ot K86.9 DISEASE OF PANCREAS, UNSPECIFIED 01/26/2018 [...] DEPENDENCE ON SUPPLEMENTAL OXYGEN 09/18/2018 NIKI AKINS 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 Ot E11.9 TYPE 2 DIABETES MELLITUS WITHOUT COMPLIC 09/18/2018 NIKI AKINS 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 Ot 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 09/18/2018 AKINS, NIKI R 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 Ot K86.9 DISEASE OF PANCREAS, UNSPECIFIED 09/18/2018 [...] 35.0-35.9, ADULT 09/18/2018 ADEOLA POTTER Ot Z79.51 RESIDENTIAL (CURRENT) USE OF INHALED STERO 09/18/2018 ADEOLA POTTER Ot Z79.84 MEAT HOSTESS (CURRENT) USE OF ORAL HYPOGLYC 09/18/2018 ADEOLA POTTER Ot Z82.49 FAMILY HX OF ISCHEM HEART DIS AND OTH DI 09/18/2018 AEDOLA POTTER Ot Z86.010 PERSONAL HISTORY OF COLONIC [...] 35.0-35.9, ADULT 09/21/2018 ADEOLA POTTER Ot Z79.51 MEAT HOSTESS (CURRENT) USE OF INHALED STERO 09/21/2018 ADEOLA POTTER Ot Z79.84 MEAT HOSTESS (CURRENT) USE OF ORAL HYPOGLYC 09/21/2018 ADEOLA [...] W E78.5 HYPERLIPIDEMIA, UNSPECIFIED 12/16/2018 SANFORD BOLAND W I10 ESSENTIAL (PRIMARY) HYPERTENSION 12/16/2018 SANFORD BOLAND W 250.00 DIABETES MELLITUS WITHOUT MENTION OF COMPLICATION, TYPE II OR UNSPECIFIED TYPE , NOT STATED UNCONTROLLED 12/16/2018 SANFORD BOLAND W 272.4 OTHER AND UNSPECIFIED HYPERLIPIDEMIA 12/16/2018 SANFORD BOLAND W 401.0 MALIGNANT ESSENTIAL HYPERTENSION 12/16/2018 SANFORD BOLAND W E11.9 TYPE 2 DIABETES MELLITUS WITHOUT COMPLICATIONS 12/16/2018 SANFORD BOLAND E78.5 HYPERLIPIDEMIA, UNSPECIFIED 12/16/2018 SANFORD BOLAND W I10 ESSENTIAL (PRIMARY) HYPERTENSION 12/17/2018 NIKI AKINS 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 Ot E11.9 TYPE 2 DIABETES MELLITUS WITHOUT COMPLIC 12/17/2018 NIKI AKINS 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 Ot 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 12/17/2018 NIKI AKINS R 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 Ot K86.9 DISEASE OF PANCREAS, UNSPECIFIED 12/22/2018 NIKI AKINS R 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 Ot E11.9 TYPE 2 DIABETES MELLITUS WITHOUT COMPLIC 12/22/2018 NIKI AKINS 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 Ot 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 12/22/2018 NIKI AKINS 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 Ot K86.9 DISEASE OF PANCREAS, UNSPECIFIED 12/24/2018 SANFORD BOLAND MD Ot 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 12/24/2018 SANFORD BOLAND MD Ot K86.89 OTHER SPECIFIED DISEASES OF PANCREAS 12/24/2018 SANFORD BOLAND MD, Ot Z90.49 ACQUIRED ABSENCE OF OTHER SPECIFIED PART 01/15/2019 SANFORD BOLAND MD Ot 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 01/15/2019 SANFORD BOLAND MD Ot K86.89 OTHER SPECIFIED DISEASES OF PANCREAS 01/15/2019 SANFORD BOLAND MD Ot Z90.49 ACQUIRED ABSENCE OF OTHER SPECIFIED PART 01/18/2019 Kristen Tesfaye 729.82 CRAMP OF LIMB 01/18/2019 Kristen Tesfaye R25.2 CRAMP AND SPASM 01/25/2019 NIKI AKINS LIZZIE Ot E11.9 TYPE 2 DIABETES MELLITUS WITHOUT COMPLIC 01/25/2019 NIKI AKINS LIZZIE Ot 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 01/25/2019 NIKI AKINS LIZZIE Ot K86.9 DISEASE OF PANCREAS, UNSPECIFIED 01/25/2019 SANFORD BOLAND MD, Ot 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 01/25/2019 SANFORD BOLAND MD, Ot K86.89 OTHER SPECIFIED DISEASES OF PANCREAS 01/25/2019 SANFORD BOLAND MD, Ot Z90.49 ACQUIRED ABSENCE OF OTHER SPECIFIED PART Procedures There is no data. Results Test [...] - 05/16/17 15:54 QUANTITY OF GROWTH . NRG Bacterial blood culture SEE COMMEN NRG Bacterial blood culture - 05/16/17 16:46 Bacterial blood culture NG NRG Complete urinalysis with reflex to culture - 05/16/17 17:47 Urine color determination ORIANA NRG Urine clarity determination CLEAR NRG Urine [...] - 20:20 MRSA SCREEN RESULT MRSA ISOLATED NR Complete blood count (CBC) with automated white [...] 7-25 CREATININE 0.90 mg/dL 0.70-1.25 eGFR NON-AFR. SUDANESE 91 mL/min/1.73m2 > OR=60 eGFR 106 mL/min/1.73m2 [...] in urine sediment by light microscopy >50 [facility] PATHOLOGY REPORT (TISSUE PAHOLOGY) - 02/09/18 17:57 CLINICAL INFORMATION [facility] PATHOLOGIST [facility] TISSUE, SPECIMEN A - 02/09/18 17:57 A SOURCE [facility] A GROSS DESCRIPTION [facility] A DIAGNOSIS [facility] [id number] - 09/18/18 15:06 [id number] SPECIMEN AVAILABLE [facility] Comprehensive Metabolic Panel - 12/16/18 [...] - 01/18/19 11:12 Mg++ 2.1 mg/dL 1.6-2.6 Complete blood count (CBC) with automated white blood cell (WBC) differential - 01/25/19 18:00 Blood leukocytes automated count (number/volume) 7.0 10*3/uL 4.3-11.0 Blood erythrocytes automated count (number/volume) 4.98 10*6/uL 4.35-5.85 Venous blood hemoglobin measurement (mass/volume) 12.5 g/dL 13.3-17.7 Blood hematocrit (volume fraction) 41 % 40-54 Automated erythrocyte mean corpuscular volume 82 [foz_us] 80-99 Automated erythrocyte mean corpuscular hemoglobin (mass per erythrocyte) 25 pg 25-34 Automated erythrocyte mean corpuscular hemoglobin concentration measurement ( mass/volume) 31 g/dL 32-36 Automated erythrocyte distribution width ratio 16.1 % 10.0-14.5 Automated blood platelet count (count/volume) 327 10*3/uL 130-400 Automated blood platelet mean volume measurement 8.2 [foz_us] 7.4-10.4 Automated blood neutrophils/100 leukocytes 45 % 42-75 Automated blood lymphocytes/100 leukocytes 42 % 12-44 Blood monocytes/100 leukocytes 8 % 0-12 Automated blood eosinophils/100 leukocytes 5 % 0-10 Automated blood basophils/100 leukocytes 1 % 0-10 Blood neutrophils automated count (number/volume) 3.1 10*3 1.8-7.8 Blood lymphocytes automated count (number/volume) 3.0 10*3 1.0-4.0 Blood monocytes automated count (number/volume) 0.5 10*3 0.0-1.0 Automated eosinophil count 0.3 10*3/uL 0.0-0.3 Automated blood basophil count (count/volume) 0.0 10*3/uL 0.0-0.1 PT panel in platelet poor plasma by coagulation assay - 01/25/19 18:00 Prothrombin time (PT) in platelet poor plasma by coagulation assay 13.0 s 12.2-14.7 INR in platelet poor plasma or blood by coagulation assay 1.0 0.8-1.4 Activated partial thromboplastin time (aPTT) in platelet poor plasma bycoagulation assay - 01/25/19 18:00 Activated partial thromboplastin time (aPTT) in platelet poor plasma bycoagulation assay 32 s 24-35 Comprehensive metabolic panel - 01/25/19 18:00 Serum or plasma sodium measurement (moles/volume) 138 mmol/L 135-145 Serum or plasma potassium measurement (moles/volume) 4.0 mmol/L 3.6-5.0 Serum or plasma chloride measurement (moles/volume) 103 mmol/L 98-107 Carbon dioxide 24 mmol/L 21-32 Serum or plasma anion gap determination (moles/volume) 11 mmol/L 5-14 Serum or plasma urea nitrogen measurement (mass/volume) 15 mg/dL 7-18 Serum or plasma creatinine measurement (mass/volume) 0.86 mg/dL 0.60-1.30 Serum or plasma urea nitrogen/creatinine mass ratio 17 NRG Serum or plasma creatinine measurement with calculation of estimated glomerular filtration rate > NRG Serum or plasma glucose measurement (mass/volume) 102 mg/dL 70-105 Serum or plasma calcium measurement (mass/volume) 9.6 mg/dL 8.5-10.1 Serum or plasma total bilirubin measurement (mass/volume) 0.3 mg/dL 0.1-1.0 Serum or plasma alkaline phosphatase measurement (enzymatic activity/volume) 67 U/L 40-136 Serum or plasma aspartate aminotransferase measurement (enzymatic activity/ volume) 27 U/L 5-34 Serum or plasma alanine aminotransferase measurement (enzymatic activity/volume ) 22 U/L 0-55 Serum or plasma protein measurement (mass/volume) 7.3 g/dL 6.4-8.2 Serum or plasma albumin measurement (mass/volume) 4.3 g/dL 3.2-4.5 CALCIUM CORRECTED 9.4 mg/dL 8.5-10.1 Magnesium - 01/25/19 18:00 Magnesium 2.4 mg/dL 1.8-2.4 Serum or plasma creatine kinase measurement (enzymatic activity/volume) - 01/25 18:00 Serum or plasma creatine kinase measurement (enzymatic activity/volume) 143 U/L 30-200 Serum or plasma creatine kinase MB measurement (enzymatic activity/volume) - 18:00 Serum or plasma creatine kinase MB measurement (enzymatic activity/volume) 2.3 ng/mL <6.6 Serum or plasma troponin i.cardiac measurement (mass/volume) - 01/25/19 18:00 Serum or plasma troponin i.cardiac measurement (mass/volume) < ng/ mL <0.028 Serum or plasma lithium measurement (moles/volume) - 01/25/19 18:00 BNP level < pg/mL <100.0 Myoglobin, serum - 01/25/19 18:00 Myoglobin, serum 48.4 ng/mL 10.0-92.0 Serum or plasma amylase measurement (enzymatic activity/volume) - 01/25/19 18: 00 Serum or plasma amylase measurement (enzymatic activity/volume) 68 U /L 25-125 Lipase - 01/25/19 18:00 Lipase 28 U/L 8-78 Capillary blood glucose measurement by glucometer (mass/volume) - 01/25/19 21: 16 Capillary blood glucose measurement by glucometer (mass/volume) 87 mg/dL 70-110 Complete urinalysis with reflex to culture - 01/25/19 23:40 Urine color determination YELLOW NRG Urine clarity determination CLEAR NRG Urine pH measurement by test strip 5 5-9 Specific gravity of urine by test strip 1.020 1.016- 1.022 Urine protein assay by test [...] detection in urine sediment by light microscopy TRACE NRG Squamous epithelial cells detection in urine sediment by light microscopy NONE NRG Crystals detection in urine sediment by light microscopy NONE NRG Casts detection in urine sediment by light microscopy NONE NRG Mucus detection in urine sediment by light microscopy NEGATIVE NRG Complete urinalysis with reflex to culture NO NRG Serum or plasma troponin i.cardiac measurement (mass/volume) - 01/26/19 00:20 Serum or plasma troponin i.cardiac measurement (mass/volume) < ng/ mL <0.028 Myoglobin, serum - 01/26/19 00:20 Myoglobin, serum 56.8 ng/mL 10.0-92.0 Capillary blood glucose measurement by glucometer (mass/volume) - 01/26/19 05: 15 Capillary blood glucose measurement by glucometer (mass/volume) 120 mg/dL 70-110 Complete blood count (CBC) with automated white blood cell (WBC) differential - 01/26/19 05:25 Blood leukocytes automated count (number/volume) 4.9 10*3/uL 4.3-11.0 Blood erythrocytes automated count (number/volume) 4.61 10*6/uL 4.35-5.85 Venous blood hemoglobin measurement (mass/volume) 11.5 g/dL 13.3-17.7 Blood hematocrit (volume fraction) 38 % 40-54 Automated erythrocyte mean corpuscular volume 81 [foz_us] 80-99 Automated erythrocyte mean corpuscular hemoglobin (mass per erythrocyte) 25 pg 25-34 Automated erythrocyte mean corpuscular hemoglobin concentration measurement ( mass/volume) 31 g/dL 32-36 Automated erythrocyte distribution width ratio 15.9 % 10.0-14.5 Automated blood platelet count (count/volume) 300 10*3/uL 130-400 Automated blood platelet mean volume measurement 8.1 [foz_us] 7.4-10.4 Automated blood neutrophils/100 leukocytes 40 % 42-75 Automated blood lymphocytes/100 leukocytes 42 % 12-44 Blood monocytes/100 leukocytes 10 % 0-12 Automated blood eosinophils/100 leukocytes 7 % 0-10 Automated blood basophils/100 leukocytes 0 % 0-10 Blood neutrophils automated count (number/volume) 2.0 10*3 1.8-7.8 Blood lymphocytes automated count (number/volume) 2.1 10*3 1.0-4.0 Blood monocytes automated count (number/volume) 0.5 10*3 0.0-1.0 Automated eosinophil count 0.3 10*3/uL 0.0-0.3 Automated blood basophil count (count/volume) 0.0 10*3/uL 0.0-0.1 Comprehensive metabolic panel - 01/26/19 05:25 Serum or plasma sodium measurement (moles/volume) 138 mmol/L 135-145 Serum or plasma potassium measurement (moles/volume) 4.0 mmol/L 3.6-5.0 Serum or plasma chloride measurement (moles/volume) 106 mmol/L 98-107 Carbon dioxide 23 mmol/L 21-32 Serum or plasma anion gap determination (moles/volume) 9 mmol/L 5-14 Serum or plasma urea nitrogen measurement (mass/volume) 15 mg/dL 7-18 Serum or plasma creatinine measurement (mass/volume) 0.83 mg/dL 0.60-1.30 Serum or plasma urea nitrogen/creatinine mass ratio 18 NRG Serum or plasma creatinine measurement with calculation of estimated glomerular filtration rate > NRG Serum or plasma glucose measurement (mass/volume) 123 mg/dL 70-105 Serum or plasma calcium measurement (mass/volume) 9.3 mg/dL 8.5-10.1 Serum or plasma total bilirubin measurement (mass/volume) 0.3 mg/dL 0.1-1.0 Serum or plasma alkaline phosphatase measurement (enzymatic activity/volume) 63 U/L 40-136 Serum or plasma aspartate aminotransferase measurement (enzymatic activity/ volume) 23 U/L 5-34 Serum or plasma alanine aminotransferase measurement (enzymatic activity/volume ) 19 U/L 0-55 Serum or plasma protein measurement (mass/volume) 6.4 g/dL 6.4-8.2 Serum or plasma albumin measurement (mass/volume) 3.8 g/dL 3.2-4.5 CALCIUM CORRECTED 9.5 mg/dL 8.5-10.1 Lipid 1996 panel - 01/26/19 05:25 Serum or plasma triglyceride measurement (mass/volume) 270 mg/dL <150 Serum or plasma cholesterol measurement (mass/volume) 149 mg/dL < 200 Serum or plasma cholesterol in HDL measurement (mass/volume) 41 mg/ dL 40-60 Cholesterol in LDL [mass/volume] in serum or plasma by direct assay 70 mg/dL 1-129 Serum or plasma cholesterol in VLDL measurement (mass/volume) 54 mg/ dL 5-40 Arterial blood gas measurement - 01/26/19 09:55 Blood pCO2 46 mm[Hg] 35-45 Blood pO2 71 mm[Hg] 79-93 Arterial blood bicarbonate measurement (moles/volume) 25 mmol/L 23-27 Arterial blood base excess by calculation -0.4 mmol/L - 2.5-2.5 Arterial blood oxygen saturation measurement 92 % 94-100 * Inhaled oxygen flow rate N/A NRG Arterial blood pH measurement with patient temperature correction 7.34 7.37-7.43 Arterial blood carbon dioxide, total measurement (moles/volume) 26.2 mmol/L 21.0-31.0 Body site RIGHT RADIAL NRG Assessment of wrist artery patency prior to arterial puncture POSITIVE NRG Setting of ventilation mode NO NRG Measurement of body temperature 97.6 NRG Capillary blood glucose measurement by glucometer (mass/volume) - 01/26/19 10: 52 Capillary blood glucose measurement by glucometer (mass/volume) 176 mg/dL 70-110 Encounters ACCT No. Visit Date/Time Discharge Status Pt. 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[facility] RAD SMOKING HISTORY, COPD [id number] 01/05/2019 07:52:00 01/05/2019 23:59:59 CLS Preadmit JOSIE GURROLA APRN [facility] RT ASTHMA,COPD [id number] 12/24/2018 10:03:00 12/24/2018 23:59:59 CLS Outpatient KYA MUNIZ, SANFORD Ho [facility] RAD PANCREATIC MASS [id number] 09/18/2018 14:31:00 09/18/2018 18:55:00 DIS Emergency IRINEO PA, ADEOLA Ho [facility] ER UPPER CHEST AND WRIST INJ [id number] 01/22/2018 14:27:00 01/22/2018 17:32:00 DIS Emergency FARHAT MUNIZ, BG Matthew [facility] ER LOW BLOOD PRESSURE LIGHTHEADED/DIZZY WEAK NAUSEA [id number] 08/15/2017 07:40:00 08/15/2017 23:59:59 CLS Outpatient NIKI AKINS 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 [facility] RAD I72.8 [id number] 05/19/2017 07:54:00 05/19/2017 23:59:59 CLS Outpatient NIKI AKINS 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 [facility] RAD E11.9 TYPE 2 DIABETES [id number] 05/16/2017 18:05:00 05/18/2017 14:25:00 DIS Inpatient ROCK MUNIZ, NILAM Cadena [facility] 4TH SEPSIS [id number] 05/06/2017 13:15:00 05/06/2017 16:13:00 DIS Outpatient ANILA LAWRENCE DO [facility] ENDO HX DIVERTICULITIS;GERD [id number] 05/01/2017 06:29:00 05/01/2017 15:27:00 DIS Outpatient ANILA LAWRENCE DO [facility] PREOP HX DIVERTICULITIS; GERD [id number] 04/10/2017 21:05:00 04/10/2017 23:00:00 DIS Emergency DAO SHARIFA MICHAELS [facility] ER FALL INJURY TO RIGHT LEG [id number] 03/22/2017 16:25:00 03/22/2017 19:59:00 DIS Emergency DAO SHARIFA MICHAELS [facility] ER STOMACH ISSUES [id number] 06/05/2016 12:59:00 06/05/2016 23:59:59 CLS Outpatient NIKI AKINS APRN [facility] RAD SCIATIC NERVE PAIN [id number] 04/23/2016 11:51:00 04/23/2016 15:13:00 DIS Outpatient ANILA LAWRENCE DO [facility] SDC CHEST PAIN, HX POLPYS [id number] 04/18/2016 05:37:00 04/18/2016 23:59:59 CLS Outpatient ANILA LAWRENCE DO [facility] PREOP CHEST PAIN,HX POLPYS [id number] 04/16/2016 10:05:00 04/16/2016 23:59:59 CLS Outpatient NIKI AKINS APRN [facility] RAD PAIN IN THORACIC SPINE,[facility] WITH SCIATICA [id number] 01/19/2016 11:25:00 01/19/2016 23:59:59 CLS Outpatient KIKO MUNIZ, ALEXIS Oviedo (DDU) [facility] RT COPD [id number] 01/15/2016 20:17:00 01/16/2016 07:00:00 DIS Outpatient JOSIE GURROLA APRN [facility] SLEEP OBSTRUCTIVE SLEEP APNEA [id number] 01/15/2016 09:09:00 01/15/2016 23:59:59 CLS Outpatient JOSIE GURROLA APRN [facility] RAD COPD W/CHRONIC BRONCHITIS,ASTHMA [id number] 12/04/2015 14:23:00 12/04/2015 23:59:59 CLS Outpatient JOSIE GURROLA APRN [facility] RT AVELAR, EXCESSIVE DATYIME SLEEPINESS, SNORING [id number] 11/27/2015 20:09:00 11/28/2015 06:25:00 DIS Outpatient JOSIE GURROLA APRN [facility] SLEEP OBSERVED APNEAS, SNORING, CHOKING/GASPIN DURING SL [id number] 09/25/2015 12:11:00 09/25/2015 23:59:59 CLS Outpatient RAYA MUNIZ FACC, ELISABETH TYP CCDS [facility] CARD CHEST DISCOMFORT [id number] 09/14/2015 07:49:00 09/14/2015 23:59:59 CLS Outpatient RAYA MUNIZ FACC, ALI FACP CCDS [facility] CARD CHEST DISCOMFORT [id number] 08/22/2015 07:05:00 08/22/2015 23:59:59 CLS Outpatient SANFORD BOLAND MD [facility] LABNPT ADD ON LAB [id number] 08/22/2015 07:05:00 08/22/2015 23:59:59 CLS Outpatient SANFORD BOLAND MD [facility] LABT DIABETES MELITIUS [id number] 08/22/2015 06:59:00 08/22/2015 08:28:00 DIS Emergency DORI ANAYA MD [facility] ER CP [id number] 01/28/2015 08:27:00 01/28/2015 10:05:00 DIS Emergency SHARIFA DC DO K [facility] ER LEFT LEG PAIN [id number] 05/25/2013 17:25:00 05/25/2013 23:59:59 CLS Outpatient SANFORD BOLAND MD [facility] RAD [id number] 01/18/2019 12:30:00 01/18/2019 23:59:00 DIS Outpatient Kristen Tesfaye [id number] 12/16/2018 14:41:00 12/16/2018 23:59:00 DIS Outpatient SANFORD BOLAND [id number] 11/07/2018 13:55:00 11/07/2018 23:59:59 [facility] Outpatient KEO LINDQUIST [facility] [id number] 02/09/2018 16:40:00 Document Registration [id number] 12/02/2017 13:40:00 Document Registration
--- NOTE | 2019-01-29 17:51 | ED Cardiac General ---
History of Present Illness General Chief Complaint: Cardiac/General Problems Stated Complaint: CP Source: patient, EMS Exam Limitations: no limitations History of Present Illness Date Seen by Provider: Jan 29, 2019 Time Seen by Provider: 17:49 Initial Comments To ER for EMS with reports of sudden onset chest tightness and shortness of breath at about 4:30 PM today. This occurred at rest. EMS arrived they gave nitroglycerin and found it to be a narrow complex tachycardia rate of 200. He had IV established, given fluids and 6 kg of adenosine with no improvement and rate. He was then given 12 mg of adenosine with reduction in rate down to 120s. He states his symptoms of chest tightness and shortness of breath are resolved. He was recently admitted for an episode of chest tightness. 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: Yes Associated Systoms: Chest Pain, Shortness of Air Allergies and Home Medications Allergies Coded Allergies: No Known Drug Allergies (Unverified , 05/01/17) Home Medications Acetaminophen 500 Mg Tablet, 1,500 MG PO 0800,2100, (Reported) Albuterol Sulfate 18 Gm Hfa.aer.ad, 1-2 PUFF IH QID PRN for SHORTNESS OF BREATH, (Reported) Amlodipine Besylate 10 Mg Tablet, 10 MG PO DAILY, (Reported) Aspirin 325 Mg Tablet.dr, 325 MG PO DAILY, (Reported) Cyclobenzaprine HCl 10 Mg Tablet, 10 MG PO BID, (Reported) Diclofenac Sodium 75 Mg Tablet.dr, 75 MG PO BID, (Reported) Fluticasone/Vilanterol 1 Each Blst.w.dev, 1 PUFF IH DAILY, (Reported) Gabapentin 300 Mg Capsule, 300 MG PO BID, (Reported) Gabapentin 300 Mg Capsule, 300 MG PO 1200 PRN for NERVE PAIN, (Reported) Lisinopril 10 Mg Tablet, 10 MG PO HS, (Reported) Metformin HCl 1,000 Mg Tablet, 1,000 MG PO BID, (Reported) Milnacipran HCl 100 Mg Tablet, 100 MG PO BID, (Reported) Pantoprazole Sodium 40 Mg Tablet.dr, 40 MG PO DAILY, (Reported) Pravastatin Sodium 40 Mg Tablet, 40 MG PO DAILY, (Reported) Tiotropium Hart 1 Inh Aerp, 1 CAP IH DAILY, (Reported) Trazodone HCl 150 Mg Tablet, 150 MG PO HS, (Reported) Patient Home Medication List Home Medication List Reviewed: Yes Review of Systems Review of Systems Constitutional: see HPI EENTM: No Symptoms Reported Respiratory: See HPI, Shortness of Air Cardiovascular: See HPI, Chest Pain Gastrointestinal: No Symptoms Reported; Denies Abdominal Pain, Denies Diarrhea , Denies Nausea Genitourinary: No Symptoms Reported Musculoskeletal: no symptoms reported Skin: no symptoms reported Psychiatric/Neurological: No Symptoms Reported Endocrine: No Symptoms Reported Past Ywaifxe-Sfejxp-Ygadkv Hx Patient Social History Type Used: Cigarettes Former Smoker, Quit: May 01, 1999 2nd Hand Smoke Exposure: No Recent Hopitalizations: No Immunizations Up To Date Tetanus Booster (TDap): Unknown Date of Pneumonia Vaccine: March 11, 2016 Seasonal Allergies Seasonal Allergies: No Past Medical History Surgeries: Yes (HERNIA REPAIR; EGD/COLONOSCOPY WITH POLYPECTOMY 2016; ) Abdominal, Gallbladder, Tonsillectomy Respiratory: Yes Asthma, COPD, Emphysema Currently Using CPAP: Yes Cardiac: Yes High Cholesterol, Hypertension Neurological: No Reproductive Disorders: No Sexually Transmitted Disease: No HIV/AIDS: No Genitourinary: No Gastrointestinal: Yes Abdominal Hernia, Gastroesophageal Reflux, Diverticulosis, Hepatitis, Polyps, Irritable Bowel Musculoskeletal: Yes (RIGHT SCIATICA--WALKS WITH CANE) Degenerate Disk Disease, Arthritis, Chronic Back Pain Endocrine: Yes (OBESITY) Diabetes, Non-Insulin dep HEENT: No Loss of Vision: Bilateral Hearing Impairment: Hearing Aide Right Cancer: No Psychosocial: No Integumentary: No Blood Disorders: No Adverse Reaction/Blood Tranf: No Family Medical History Heart Disease, Cancer, Diabetes, Hypertension Physical Exam Vital Signs Vital Signs - First Documented 01/29/19 01/29/19 17:43 18:43 Temp 97.4 Pulse 134 Resp 18 B/P (MAP) 114/84 (94) Pulse Ox 95 O2 Delivery Room Air Capillary Refill : Height, Weight, BMI Height: 5'9.00" Weight: 325lbs. 0.0oz. 147.360672gm; 48.0 BMI Method:Stated General Appearance: No Apparent Distress, WD/WN, Obese HEENT: PERRL/EOMI, TMs Normal Neck: Full Range of Motion, Normal Inspection Respiratory: Normal Breath Sounds, No Accessory Muscle Use, No Respiratory Distress Gastrointestinal: Normal Bowel Sounds, Non Tender, Soft ( we did not have more than 4) Neurologic/Psychiatric: Alert, Oriented x3 Skin: Normal Color, Warm/Dry Progress/Results/Core Measures Results/Orders Lab Results Laboratory Tests Test 01/29/19 17:40 Range/Units White Blood Count 6.3 4.3-11.0 10^3/uL Red Blood Count 4.98 4.35-5.85 10^6/uL Hemoglobin 12.4 L 13.3-17.7 G/DL Hematocrit 41 40-54 % Mean Corpuscular Volume 81 80-99 FL Mean Corpuscular Hemoglobin 25 25-34 PG Mean Corpuscular Hemoglobin Concent 31 L 32-36 G/DL Red Cell Distribution Width 16.0 H 10.0-14.5 % Platelet Count 331 130-400 10^3/uL Mean Platelet Volume 8.5 7.4-10.4 FL Neutrophils (%) (Auto) 52 42-75 % Lymphocytes (%) (Auto) 34 12-44 % Monocytes (%) (Auto) 10 0-12 % Eosinophils (%) (Auto) 4 0-10 % Basophils (%) (Auto) 0 0-10 % Neutrophils # (Auto) 3.3 1.8-7.8 X 10^3 Lymphocytes # (Auto) 2.1 1.0-4.0 X 10^3 Monocytes # (Auto) 0.6 0.0-1.0 X 10^3 Eosinophils # (Auto) 0.3 0.0-0.3 10^3/uL Basophils # (Auto) 0.0 0.0-0.1 10^3/uL Prothrombin Time 12.5 12.2-14.7 SEC INR Comment 0.9 0.8-1.4 Activated Partial Thromboplast Time 32 24-35 SEC Sodium Level 142 135-145 MMOL/L Potassium Level 4.3 3.6-5.0 MMOL/L Chloride Level 106 98-107 MMOL/L Carbon Dioxide Level 25 21-32 MMOL/L Anion Gap 11 5-14 MMOL/L Blood Urea Nitrogen 16 7-18 MG/DL Creatinine 1.18 0.60-1.30 MG/DL Estimat Glomerular Filtration Rate > 60 BUN/Creatinine Ratio 14 Glucose Level 128 H 70-105 MG/DL Calcium Level 9.2 8.5-10.1 MG/DL Corrected Calcium 9.2 8.5-10.1 MG/DL Magnesium Level 1.8 1.8-2.4 MG/DL Total Bilirubin 0.3 0.1-1.0 MG/DL Aspartate Amino Transf (AST/SGOT) 24 5-34 U/L Alanine Aminotransferase (ALT/SGPT) 23 0-55 U/L Alkaline Phosphatase 71 40-136 U/L Myoglobin 39.2 10.0-92.0 NG/ML Troponin I < 0.028 <0.028 NG/ML B-Type Natriuretic Peptide < 10.0 <100.0 PG/ML Total Protein 7.1 6.4-8.2 GM/DL Albumin 4.0 3.2-4.5 GM/DL My Orders Orders - JANELLE CASTAÑEDA APRN Cbc With Automated Diff (01/29/19 17:43) Magnesium (01/29/19 17:43) Chest 1 View, Ap/Pa Only (01/29/19 17:43) Ekg Tracing (01/29/19 17:43) Cardiac Profile 1 (01/29/19 17:43) Comprehensive Metabolic Panel (01/29/19 17:43) Myoglobin Serum (01/29/19 17:43) Protime With Inr (01/29/19 17:43) Partial Thromboplastin Time (01/29/19 17:43) O2 (01/29/19 17:43) Monitor-Rhythm Ecg Trace Only (01/29/19 17:43) Lipid Panel (01/30/19 06:00) Saline Lock/Iv-Start (01/29/19 17:43) BNP (01/29/19 17:43) Metoprolol Tartrate Injection (Lopressor (01/29/19 17:45) Medications Given in ED Current Medications Medications Dose Ordered Sig/Montez Route Start Time Stop Time Status Last Admin Dose Admin Metoprolol Tartrate 5 mg ONCE ONCE IV 01/29/19 17:45 01/29/19 17:46 DC 01/29/19 18:08 5 MG Vital Signs/I&O 01/29/19 01/29/19 17:43 18:43 Temp 97.4 Pulse 134 98 Resp 18 18 B/P (MAP) 114/84 (94) Pulse Ox 95 95 O2 Delivery Room Air Departure Communication (Admissions) 1901-heart rate is 101 sinus no ectopy, states he feels absolute fine without complaint. Labs are unremarkable. We will have him follow-up with primary care. Blood pressure is 113/81. He states that his is established with Dr. Armstrong so he'll see him. Impression Primary Impression: SVT (supraventricular tachycardia) Disposition: 01 HOME, SELF-CARE Condition: Stable Departure-Patient Inst. Decision time for Depature: 19:08 Referrals: CHAGO ARMSTRONG MD, RACHEL L MD (PCP/Family) Primary Care Physician Patient Instructions: Paroxysmal Supraventricular Tachycardia (DC) Add. Discharge Instructions: 1. Return to ER for any recurrent symptoms 2. Follow-up with primary care. Give Dr. Armstrong a call on Friday to make an appointment to be seen All discharge instructions reviewed with patient and/or family. Voiced understanding. JANELLE CASTAÑEDA APRN Jan 29, 2019 17:51
[2019-01-29 17:53] LABS: BASOPHILS % (AUTO) 0 % (0-10); EOSINOPHILS # (AUTO) 0.3 10^3/uL (0.0-0.3); EOSINOPHILS % (AUTO) 4 % (0-10); HEMATOCRIT 41 % (40-54); HEMOGLOBIN 12.4 G/DL (13.3-17.7); LYMPHOCYTES # (AUTO) 2.1 X 10^3 (1.0-4.0); LYMPHOCYTES % (AUTO) 34 % (12-44); MEAN CORPUSCULAR HEMOGLOBIN 25 PG (25-34); MEAN CORPUSCULAR HGB CONC 31 G/DL (32-36); MEAN CORPUSCULAR VOLUME 81 FL (80-99); MEAN PLATELET VOLUME 8.5 FL (7.4-10.4); MONOCYTES # (AUTO) 0.6 X 10^3 (0.0-1.0); MONOCYTES % (AUTO) 10 % (0-12); NEUTROPHILS # (AUTO) 3.3 X 10^3 (1.8-7.8); NEUTROPHILS % (AUTO) 52 % (42-75); PLATELET COUNT 331 10^3/uL (130-400); WHITE BLOOD COUNT 6.3 10^3/uL (4.3-11.0)
[2019-01-29 18:04] LABS: INR 0.9 (0.8-1.4); PROTHROMBIN TIME PATIENT 12.5 SEC (12.2-14.7)
[2019-01-29 18:12] LABS: ALANINE AMINOTRANSFERASE 23 U/L (0-55); ALKALINE PHOSPHATASE 71 U/L (40-136); BILIRUBIN,TOTAL 0.3 MG/DL (0.1-1.0); BUN/CREATININE RATIO 14; CALCIUM 9.2 MG/DL (8.5-10.1); CARBON DIOXIDE 25 MMOL/L (21-32); CHLORIDE 106 MMOL/L (98-107); CREATININE SERUM 1.18 MG/DL (0.60-1.30); GFR ESTIMATED > 60; GLUCOSE 128 MG/DL (70-105); MAGNESIUM 1.8 MG/DL (1.8-2.4); POTASSIUM 4.3 MMOL/L (3.6-5.0); SODIUM 142 MMOL/L (135-145); TOTAL PROTEIN 7.1 GM/DL (6.4-8.2)
[2019-01-29 18:19] LABS: MYOGLOBIN SERUM 39.2 NG/ML (10.0-92.0)
--- NOTE | 2019-01-29 18:36 | Diagnostic Imaging Report ---
INDICATION: Chest pain COMPARISON: 01/26/2019 FINDINGS: Single frontal view of the chest demonstrates normal heart size and pulmonary vascularity. The lungs are well aerated and clear. No large pleural effusion or pneumothorax is seen. The visualized osseous structures show no acute abnormalities. IMPRESSION: 1. No acute cardiopulmonary process. Dictated by: Dictated on workstation # [id number]
[2019-01-29 18:43] VITALS: BP 114/84
[2019-01-29 19:22] VITALS: BP 113/81
== END 2019-01-29 19:23 | disposition home or self-care (01) ==
LOC: EDUNIT# 17:33 → ER 17:34
DX: I47.1 Supraventricular tachycardia (principal); J43.9 Emphysema, unspecified; E78.00 Pure hypercholesterolemia, unspecified; I10 Essential (primary) hypertension; K21.9 Gastro-esophageal reflux disease without esophagitis; K58.9 Irritable bowel syndrome, unspecified; E11.9 Type 2 diabetes mellitus without complications; E66.9 Obesity, unspecified; Z82.49 Family history of ischemic heart disease and other diseases of the circulatory system; Z87.19 Personal history of other diseases of the digestive system; Z68.42 Body mass index [BMI] 45.0-49.9, adult; Z79.51 Long term (current) use of inhaled steroids; Z79.82 Long term (current) use of aspirin; Z87.891 Personal history of nicotine dependence; Z98.890 Other specified postprocedural states; Z90.89 Acquired absence of other organs; Z86.010 Personal history of colon polyps
CPT/HCPCS: 36415; 71045; 80053; 83735; 83874; 83880; 84484; 85025; 85610; 85730; 93005

== ENCOUNTER 2019-02-01 12:51 | Outpatient (RCR) | payer MEDICARE, MEDICAID ==
[~2019-02-01] VITALS: Ht 175.3 cm; Wt 145.3 kg
[2019-02-01 13:12] VITALS: BP 131/60
[2019-03-02 14:00] VITALS: BP 153/60
[2019-03-02 15:00] VITALS: BP 152/62
[2019-03-04 14:00] VITALS: BP 150/60
[2019-03-04 15:00] VITALS: BP 122/60
[2019-03-09 13:00] VITALS: BP 138/60
[2019-03-09 14:00] VITALS: BP 112/70
[2019-03-11 13:00] VITALS: BP 150/50
[2019-03-11 14:00] VITALS: BP 130/60
[2019-03-16 13:05] VITALS: BP 130/86
[2019-03-16 13:50] VITALS: BP 122/80
[2019-03-25 13:00] VITALS: BP 130/82
[2019-03-25 13:53] VITALS: BP 110/71
[2019-04-06 12:55] VITALS: BP 128/60
[2019-04-06 13:30] VITALS: BP 130/80
[2019-04-08 13:00] VITALS: BP 142/60
[2019-04-08 16:24] VITALS: BP 120/87
[2019-04-13 12:50] VITALS: BP 129/87
[2019-04-13 14:05] VITALS: BP 132/84
[2019-04-15 12:55] VITALS: BP 118/82
[2019-04-15 13:45] VITALS: BP 122/80
[2019-04-20 13:00] VITALS: BP 140/60
[2019-04-20 13:45] VITALS: BP 130/80
[2019-04-29 13:00] VITALS: BP 128/60
[2019-04-29 14:00] VITALS: BP 130/78
[2019-05-04 13:00] VITALS: BP 140/60
[2019-05-04 14:00] VITALS: BP 140/60
== END 2019-05-02 | disposition home or self-care (01) ==
LOC: PULM 12:51
PROVIDERS: ATTEND Nurse Practitioner Family
DX: J44.9 Chronic obstructive pulmonary disease, unspecified (principal)

== ENCOUNTER → 2019-02-12 | Outpatient (CLI) | payer MEDICARE, MEDICAID | LOC: CARD 12:54 | PROVIDERS: ATTEND Internal Medicine Cardiovascular Disease | DX: I47.1 Supraventricular tachycardia (principal); G47.33 Obstructive sleep apnea (adult) (pediatric); I10 Essential (primary) hypertension; E78.2 Mixed hyperlipidemia; E11.9 Type 2 diabetes mellitus without complications; Z72.0 Tobacco use | CPT/HCPCS: 93306 ==

== ENCOUNTER → 2019-02-17 | Outpatient (CLI) | payer MEDICARE, MEDICAID ==
[~2019-02-17] MED LIST changes: +CATHETER FLUSH 10 ML SYR IV PRN; +REGADENOSON 0.4 MG/5 ML SYR (LEXISCAN) IV ONE
[2019-02-17 13:15] VITALS: BP 164/109
[2019-02-17 13:16] VITALS: BP 145/93
[2019-02-17 13:17] VITALS: BP 145/93
[2019-02-17 13:18] VITALS: BP 145/104
--- NOTE | 2019-02-17 20:08 | STRESS TEST ---
DATE OF SERVICE: 02/17/2019 LEXISCAN MYOVIEW STRESS TEST REPORT REFERRING PHYSICIAN: Ashleigh Benitez MD Baseline heart rate is 110. Baseline blood pressure 164/109. Baseline EKG, sinus tachycardia with no ischemic changes. In summary, the patient was injected with 10.5 mCi of technetium-99 Myoview and the resting images were obtained. Then, the patient received 0.4 mg of Lexiscan, followed by 28.5 mCi of technetium-99 Myoview. Throughout the test, there were no EKG changes. The resting and stress images were reviewed and compared in the short axis, horizontal long axis, and vertical long axis views. Review of the images showed good radiotracer uptake with diaphragmatic attenuation, no significant ischemia or infarction was seen. SSS is 0. TID value 1.03. On the gated images, the left ventricle appeared to be in normal size with normal contractility. Calculated ejection fraction 55%. IN CONCLUSION: 1. The patient tolerated Lexiscan well. 2. No ischemia or infarction on SPECT images. 3. Normal left ventricular size with normal contractility. Calculated ejection fraction 55%. Job ID: [id number] DocumentID: [id number] Dictated Date: 02/17/2019 17:34:18 Supervisor [employer]action Date: 02/17/2019 20:08:03 Dictated By: CHAGO VYAS MD
== END ==
LOC: CARD 11:03
PROVIDERS: ATTEND Internal Medicine Cardiovascular Disease
DX: I47.1 Supraventricular tachycardia (principal); I10 Essential (primary) hypertension; E78.2 Mixed hyperlipidemia; E11.9 Type 2 diabetes mellitus without complications; G47.33 Obstructive sleep apnea (adult) (pediatric); Z72.0 Tobacco use
CPT/HCPCS: 78452; 93017

== ENCOUNTER 2019-05-27 14:10 | Outpatient (RCR) | payer MEDICARE, MEDICAID ==
[2019-05-27 13:00] VITALS: BP 142/85
[2019-05-27 14:07] VITALS: BP 140/60
[~2019-05-27 14:10] MED LIST changes: -CATHETER FLUSH 10 ML SYR IV PRN; -REGADENOSON 0.4 MG/5 ML SYR (LEXISCAN) IV ONE
[2019-06-10 13:00] VITALS: BP 150/60
[2019-06-22 13:00] VITALS: BP 112/78
[2019-06-22 14:13] VITALS: BP 140/60
== END 2019-08-25 | disposition home or self-care (01) ==
LOC: PULM 14:10
PROVIDERS: ATTEND Nurse Practitioner Family
DX: J44.9 Chronic obstructive pulmonary disease, unspecified (principal)

== ENCOUNTER 2019-06-02 16:53 | Emergency (ER) | payer MEDICAID, MEDICARE ==
[~2019-06-02] VITALS: Ht 175.3 cm; Wt 108.9 kg
[~2019-06-02 16:53] MED LIST changes: +ADENOSINE 6 MG/2 ML (ADENOCARD) VIAL IV ONE; +NS IV 1000 ML 1,000 ML ONE
--- NOTE | 2019-06-02 17:01 | NUR ---
Pt presents with SVT with HR of 197. 12 mg of Adenosine given at this time.
--- NOTE | 2019-06-02 17:03 | NUR ---
HR is 123 at this time. 2L of NC applied. Pt states SOB has improved since Adenosine administration.
[2019-06-02 17:06] LABS: BASOPHILS % (AUTO) 1 % (0-10); EOSINOPHILS # (AUTO) 0.4 10^3/uL (0.0-0.3); EOSINOPHILS % (AUTO) 6 % (0-10); HEMATOCRIT 42 % (40-54); HEMOGLOBIN 12.8 G/DL (13.3-17.7); LYMPHOCYTES # (AUTO) 3.6 X 10^3 (1.0-4.0); LYMPHOCYTES % (AUTO) 47 % (12-44); MEAN CORPUSCULAR HEMOGLOBIN 25 PG (25-34); MEAN CORPUSCULAR HGB CONC 30 G/DL (32-36); MEAN CORPUSCULAR VOLUME 82 FL (80-99); MEAN PLATELET VOLUME 8.1 FL (7.4-10.4); MONOCYTES # (AUTO) 0.8 X 10^3 (0.0-1.0); MONOCYTES % (AUTO) 11 % (0-12); NEUTROPHILS # (AUTO) 2.8 X 10^3 (1.8-7.8); NEUTROPHILS % (AUTO) 36 % (42-75); PLATELET COUNT 361 10^3/uL (130-400); RED CELL DISTRIBUTION WIDTH 15.9 % (10.0-14.5); WHITE BLOOD COUNT 7.7 10^3/uL (4.3-11.0)
--- NOTE | 2019-06-02 17:13 | ED Chest Pain ---
General Chief Complaint: Chest Pain Stated Complaint: CP Source: patient Exam Limitations: no limitations History of Present Illness Date Seen by Provider: Jun 02, 2019 Time Seen by Provider: 17:10 Initial Comments To ER with reports of chest tightness in the upper central part of his chest and shortness of breath that began about 2 hours prior to arrival. 1 history of previous SVT treated with adenosine in the ambulance prior to arrival to the hospital several years ago. No coronary stents. No personal history of heart disease. Timing/Duration: 1-3 hours Severity/Quality: moderate Location: central Radiation: no radiation Activities at Onset: none ASA po SWITCH BOX INSTALLER: No NTG SL SWITCH BOX INSTALLER: No Associated Symptoms: shortness of breath Allergies and Home Medications Allergies Coded Allergies: No Known Drug Allergies (Unverified , 05/01/17) Home Medications Acetaminophen 500 Mg Tablet, 1,500 MG PO 0800,2100, (Reported) Albuterol Sulfate 18 Gm Hfa.aer.ad, 1-2 PUFF IH QID PRN for SHORTNESS OF BREATH, (Reported) Amlodipine Besylate 10 Mg Tablet, 10 MG PO DAILY, (Reported) Aspirin 325 Mg Tablet.dr, 325 MG PO DAILY, (Reported) Cyclobenzaprine HCl 10 Mg Tablet, 10 MG PO BID, (Reported) Diclofenac Sodium 75 Mg Tablet.dr, 75 MG PO BID, (Reported) Fluticasone/Vilanterol 1 Each Blst.w.dev, 1 PUFF IH DAILY, (Reported) Gabapentin 300 Mg Capsule, 300 MG PO BID, (Reported) Gabapentin 300 Mg Capsule, 300 MG PO 1200 PRN for NERVE PAIN, (Reported) Lisinopril 10 Mg Tablet, 10 MG PO HS, (Reported) Metformin HCl 1,000 Mg Tablet, 1,000 MG PO BID, (Reported) Milnacipran HCl 100 Mg Tablet, 100 MG PO BID, (Reported) Pantoprazole Sodium 40 Mg Tablet.dr, 40 MG PO DAILY, (Reported) Pravastatin Sodium 40 Mg Tablet, 40 MG PO DAILY, (Reported) Tiotropium [place] 1 Inh Aerp, 1 CAP IH DAILY, (Reported) Trazodone HCl 150 Mg Tablet, 150 MG PO HS, (Reported) Patient Home Medication List Home Medication List Reviewed: Yes Review of Systems Review of Systems Constitutional: see HPI EENTM: No Symptoms Reported Respiratory: See HPI, Shortness of Air Cardiovascular: See HPI, Chest Pain Genitourinary: No Symptoms Reported Musculoskeletal: no symptoms reported Skin: no symptoms reported Psychiatric/Neurological: No Symptoms Reported Endocrine: No Symptoms Reported Hematologic/Lymphatic: No Symptoms Reported Past Pkuzkmm-Zmysfc-Zuozcy Hx Patient Social History Type Used: Cigarettes Former Smoker, Quit: Feb 01, 2013 2nd Hand Smoke Exposure: No Recent Foreign Travel: No Contact w/Someone Who Travel: No Recent Hopitalizations: No Immunizations Up To Date Tetanus Booster (TDap): Unknown Date of Pneumonia Vaccine: March 11, 2016 Seasonal Allergies Seasonal Allergies: No Past Medical History Surgeries: Yes (HERNIA REPAIR; EGD/COLONOSCOPY WITH POLYPECTOMY 2016; ) Abdominal, Gallbladder, Tonsillectomy Respiratory: Yes Asthma, COPD, Emphysema Currently Using CPAP: Yes Cardiac: Yes High Cholesterol, Hypertension Neurological: No Reproductive Disorders: No Sexually Transmitted Disease: No HIV/AIDS: No Genitourinary: No Gastrointestinal: Yes Abdominal Hernia, Gastroesophageal Reflux, Diverticulosis, Hepatitis, Polyps, Irritable Bowel Musculoskeletal: Yes (RIGHT SCIATICA--WALKS WITH CANE) Degenerate Disk Disease, Arthritis, Chronic Back Pain Endocrine: Yes (OBESITY) Diabetes, Non-Insulin dep HEENT: No Loss of Vision: Bilateral Hearing Impairment: Hearing Aide Right Cancer: No Psychosocial: No Integumentary: No Blood Disorders: No Adverse Reaction/Blood Tranf: No Family Medical History Heart Disease, Cancer, Diabetes, Hypertension Physical Exam Vital Signs Vital Signs - First Documented 06/02/19 16:55 Temp 98.7 Pulse 197 Resp 21 B/P (MAP) 131/86 (101) Pulse Ox 95 O2 Delivery Room Air Capillary Refill : Height, Weight, BMI Height: 5'9.00" Weight: 318lbs. 4.0oz. 145.670243tf; 47.3 BMI Method:Estimated General Appearance: No Apparent Distress, WD/WN, Obese, Other (mentating well, carrying on a full conversation without difficulty speaks in full sentences) Neck: Full Range of Motion, Normal Inspection Respiratory: No Accessory Muscle Use, No Respiratory Distress Cardiovascular: Tachycardia (regular narrow complex rate of 203) Gastrointestinal: Normal Bowel Sounds, Non Tender, Soft Extremity: Normal Capillary Refill, Normal Inspection Neurologic/Psychiatric: Alert, Oriented x3 Skin: Normal Color, Warm/Dry Progress/Results/Core Measures Results/Orders Lab Results Laboratory Tests Test 06/02/19 16:55 06/02/19 18:54 Range/Units White Blood Count 7.7 4.3-11.0 10^3/uL Red Blood Count 5.19 4.35-5.85 10^6/uL Hemoglobin 12.8 L 13.3-17.7 G/DL Hematocrit 42 40-54 % Mean Corpuscular Volume 82 80-99 FL Mean Corpuscular Hemoglobin 25 25-34 PG Mean Corpuscular Hemoglobin Concent 30 L 32-36 G/DL Red Cell Distribution Width 15.9 H 10.0-14.5 % Platelet Count 361 130-400 10^3/uL Mean Platelet Volume 8.1 7.4-10.4 FL Neutrophils (%) (Auto) 36 L 42-75 % Lymphocytes (%) (Auto) 47 H 12-44 % Monocytes (%) (Auto) 11 0-12 % Eosinophils (%) (Auto) 6 0-10 % Basophils (%) (Auto) 1 0-10 % Neutrophils # (Auto) 2.8 1.8-7.8 X 10^3 Lymphocytes # (Auto) 3.6 1.0-4.0 X 10^3 Monocytes # (Auto) 0.8 0.0-1.0 X 10^3 Eosinophils # (Auto) 0.4 H 0.0-0.3 10^3/uL Basophils # (Auto) 0.0 0.0-0.1 10^3/uL Prothrombin Time 12.6 12.2-14.7 SEC INR Comment 0.9 0.8-1.4 Activated Partial Thromboplast Time 32 24-35 SEC D-Dimer 0.44 0.00-0.49 UG/ML Sodium Level 140 135-145 MMOL/L Potassium Level 4.0 3.6-5.0 MMOL/L Chloride Level 100 98-107 MMOL/L Carbon Dioxide Level 28 21-32 MMOL/L Anion Gap 12 5-14 MMOL/L Blood Urea Nitrogen 20 H 7-18 MG/DL Creatinine 1.19 0.60-1.30 MG/DL Estimat Glomerular Filtration Rate > 60 BUN/Creatinine Ratio 17 Glucose Level 123 H 70-105 MG/DL Calcium Level 10.1 8.5-10.1 MG/DL Corrected Calcium 9.9 8.5-10.1 MG/DL Magnesium Level 1.8 1.8-2.4 MG/DL Total Bilirubin 0.2 0.1-1.0 MG/DL Aspartate Amino Transf (AST/SGOT) 33 5-34 U/L Alanine Aminotransferase (ALT/SGPT) 30 0-55 U/L Alkaline Phosphatase 62 40-136 U/L Myoglobin 82.1 10.0-92.0 NG/ML Troponin I < 0.028 < 0.028 <0.028 NG/ML Total Protein 7.5 6.4-8.2 GM/DL Albumin 4.3 3.2-4.5 GM/DL My Orders Orders - JANELLE CASTAÑEDA GRINDING OPERATOR Cbc With Automated Diff (06/02/19 16:55) Magnesium (06/02/19 16:55) Chest 1 View, Ap/Pa Only (06/02/19 16:55) Ekg Tracing (06/02/19 16:55) Cardiac Profile 1 (06/02/19 16:55) Comprehensive Metabolic Panel (06/02/19 16:55) Myoglobin Serum (06/02/19 16:55) Protime With Inr (06/02/19 16:55) Partial Thromboplastin Time (06/02/19 16:55) O2 (06/02/19 16:55) Monitor-Rhythm Ecg Trace Only (06/02/19 16:55) Lipid Panel (06/03/19 06:00) Ed Iv/Invasive Line Start (06/02/19 16:55) Metoprolol Succinate (Xl) Tab (Toprol Xl (06/02/19 17:15) Aspirin Chewable Tablet (Baby Aspirin Ch (06/02/19 17:15) Ns Iv 1000 Ml (Sodium Chloride 0.9%) (06/02/19 17:15) Adenosine Injection (Adenocard Injection (06/02/19 17:15) Troponin I (06/02/19 18:55) Fibrin Degradation Products (06/02/19 18:28) Medications Given in ED Current Medications Medications Dose Ordered Sig/[place] Route Start Time Stop Time Status Last Admin Dose Admin Adenosine 12 mg ONCE ONCE IV 06/02/19 17:15 06/02/19 17:16 DC 06/02/19 17:01 12 MG Aspirin 324 mg ONCE ONCE PO 06/02/19 17:15 06/02/19 17:16 DC 7/24/19 17:17 324 MG Metoprolol Succinate 25 mg ONCE ONCE PO 06/02/19 17:15 06/02/19 17:16 DC 06/02/19 17:17 25 MG Vital Signs/I&O 06/02/19 06/02/19 06/02/19 16:55 17:12 17:12 Temp 98.7 Pulse 197 Resp 21 B/P (MAP) 131/86 (101) Pulse Ox 95 99 O2 Delivery Room Air Nasal Cannula Nasal Cannula O2 Flow Rate 2.0 22.00 Departure Communication (Admissions) At 1659 he was given an initial dose of 12 mg of adenosine which converted to a sinus tach rate of 140 which over the course of the next 10 minutes slowed down to 120. Impression Primary Impression: PSVT (paroxysmal supraventricular tachycardia) Disposition: 01 HOME, SELF-CARE Condition: Improved Departure-Patient Inst. Decision time for Depature: 19:24 Referrals: SANFORD BOLAND MD (PCP/Family) Primary Care Physician Patient Instructions: Paroxysmal Supraventricular Tachycardia (DC) JANELLE CASTAÑEDA APRN Jun 02, 2019 17:13
[2019-06-02] MEDS ORDERED: ADENOSINE 6 MG/2 ML (ADENOCARD) VIAL IV ONE (17:15)
[2019-06-02] MEDS ORDERED: NS IV 1000 ML 1,000 ML IV SCH (17:15)
[2019-06-02] MEDS ORDERED: ASPIRIN 81 MG CHEW (CHILDREN'S ASA) PO ONE (17:15)
[2019-06-02 17:18] LABS: INR 0.9 (0.8-1.4); PROTHROMBIN TIME PATIENT 12.6 SEC (12.2-14.7)
[2019-06-02 17:28] LABS: ALANINE AMINOTRANSFERASE 30 U/L (0-55); ALBUMIN 4.3 GM/DL (3.2-4.5); ALKALINE PHOSPHATASE 62 U/L (40-136); BILIRUBIN,TOTAL 0.2 MG/DL (0.1-1.0); BUN/CREATININE RATIO 17; CALCIUM 10.1 MG/DL (8.5-10.1); CARBON DIOXIDE 28 MMOL/L (21-32); CHLORIDE 100 MMOL/L (98-107); CREATININE SERUM 1.19 MG/DL (0.60-1.30); GFR ESTIMATED > 60; GLUCOSE 123 MG/DL (70-105); MAGNESIUM 1.8 MG/DL (1.8-2.4); SODIUM 140 MMOL/L (135-145); TOTAL PROTEIN 7.5 GM/DL (6.4-8.2)
--- NOTE | 2019-06-02 17:39 | Diagnostic Imaging Report ---
EXAMINATION: Single frontal view of the chest. INDICATION: Chest pain. COMPARISON: Multiple priors, most recent performed on 01/29/2019. FINDINGS: There is mild left basilar atelectasis. The lungs are otherwise clear and the pulmonary vasculature is normal. No pneumothorax or large pleural effusion. The cardiomediastinal silhouette is unchanged. No acute osseous abnormality is demonstrated. IMPRESSION: Mild left basilar atelectasis, otherwise no radiographic evidence of acute chest disease. Dictated by: Dictated on workstation # [id number]
[2019-06-02 19:25] VITALS: BP 102/81
== END 2019-06-02 19:30 | disposition home or self-care (01) ==
LOC: EDUNIT# 16:53 → ER 16:54
DX: I47.1 Supraventricular tachycardia (principal); J43.9 Emphysema, unspecified; J45.909 Unspecified asthma, uncomplicated; I10 Essential (primary) hypertension; E78.00 Pure hypercholesterolemia, unspecified; K58.9 Irritable bowel syndrome, unspecified; K21.9 Gastro-esophageal reflux disease without esophagitis; E66.9 Obesity, unspecified; E11.9 Type 2 diabetes mellitus without complications; Z86.010 Personal history of colon polyps; Z79.82 Long term (current) use of aspirin; Z79.51 Long term (current) use of inhaled steroids; Z79.84 Long term (current) use of oral hypoglycemic drugs; Z87.891 Personal history of nicotine dependence; Z98.890 Other specified postprocedural states; Z90.89 Acquired absence of other organs; Z82.49 Family history of ischemic heart disease and other diseases of the circulatory system
CPT/HCPCS: 36415; 71045; 80053; 83735; 83874; 84484; 85025; 85379; 85610; 85730; 93005; 93041; 96361; 96374

== ENCOUNTER → 2019-09-20 | Outpatient (CLI) | payer MEDICARE ==
[~2019-09-20] MED LIST changes: -ADENOSINE 6 MG/2 ML (ADENOCARD) VIAL IV ONE; -NS IV 1000 ML 1,000 ML ONE
--- NOTE | 2019-09-20 13:39 | Diagnostic Imaging Report ---
EXAMINATION: CT Chest without contrast (lung screening). TECHNIQUE: Multiple contiguous axial images were obtained through the chest without the use of intravenous contrast according to lung cancer screening protocol. All CT scans use one or more of the following dose optimizing techniques: automated exposure control, MA and/or KvP adjustment based on a patient size and exam type, or iterative reconstruction. HISTORY: 66 pack year history of smoking. COMPARISON: None available. FINDINGS: The lungs are clear without edema or pneumonia. No pleural effusion or pneumothorax. No suspicious nodules. 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 Heart size is normal. No pericardial effusion. Aorta is normal in caliber. There is no axillary or supraclavicular lymphadenopathy. There is no mediastinal lymphadenopathy. Limited views of the upper abdomen are normal. There are no suspicious osseus lesions. There is a chronic appearing mild mid thoracic compression fracture. IMPRESSION: 1. No suspicious pulmonary nodules. LUNG-RADS CATEGORY: 1 MODIFIER: None. OTHER SIGNIFICANT FINDINGS: None. Dictated by: Dictated on workstation # [id number]
== END ==
LOC: RAD 11:31
PROVIDERS: ATTEND Nurse Practitioner Family
DX: J30.9 Allergic rhinitis, unspecified (principal); J44.9 Chronic obstructive pulmonary disease, unspecified; G47.33 Obstructive sleep apnea (adult) (pediatric); Z87.891 Personal history of nicotine dependence

== ENCOUNTER → 2020-07-24 | Outpatient (CLI) | payer MEDICARE, MEDICAID ==
[~2020-07-24] MED LIST changes: -CETI10TA20 PO; +CETI10TA21 PO; +OMEP40CA27 PO; -OMEP40CA36 PO
--- NOTE | 2020-07-24 11:48 | Diagnostic Imaging Report ---
INDICATION: Neck pain. TIME OF EXAM: 11:21 AM. TECHNIQUE: AP, lateral, and odontoid views of the cervical spine were obtained. FINDINGS: The curvature and alignment are normal. There is generalized spondylosis with variable disc space narrowing and marginal spurring. The prevertebral tissues are normal. No fractures are seen. The odontoid appears intact. IMPRESSION: Cervical spondylosis. No acute bony abnormality is detected. Dictated by: Dictated on workstation # [id number]
== END ==
LOC: RAD 11:02
PROVIDERS: ATTEND Family Medicine
DX: M47.812 Spondylosis without myelopathy or radiculopathy, cervical region (principal)
CPT/HCPCS: 72040

== ENCOUNTER 2021-02-24 16:26 | Emergency (ER) | payer MEDICARE, MEDICAID ==
[~2021-02-24] VITALS: Ht 175 cm; Wt 66.0 kg
[~2021-02-24 16:26] MED LIST changes: +AMLO-251 PO; -AMLO10TA7 PO; -CETI10TA21 PO; +CETI10TA49 PO; -LISI10TA2 PO; +LISI10TA25 PO; -OXYC-471 PO; +OXYC1TAB11 PO
[2021-02-24 16:40] VITALS: BP 151/78
--- NOTE | 2021-02-24 16:49 | ED Upper Extremity ---
General Chief Complaint: Upper Extremity Stated Complaint: LEFT SHOULDER PAIN/POPPING Source: patient Exam Limitations: no limitations History of Present Illness Date Seen by Provider: Feb 24, 2021 Time Seen by Provider: 16:47 Initial Comments To ER with popping sensation and pain in the left shoulder after lifting a box carrying it inside. Now has pain and limited range of motion Onset: just prior to arrival Severity: moderate Pain/Injury Location: left shoulder Method of Injury: fell Modifying Factors: Worse With Movement Allergies and Home Medications Allergies Coded Allergies: No Known Drug Allergies (Unverified , 05/01/17) Home Medications Acetaminophen 500 Mg Tablet, 1,500 MG PO 0800,2100, (Reported) Albuterol Sulfate 18 Gm Hfa.aer.ad, 1-2 PUFF IH QID PRN for SHORTNESS OF BREATH, (Reported) Amlodipine Besylate 10 Mg Tablet, 10 MG PO DAILY, (Reported) Aspirin 325 Mg Tablet.dr, 325 MG PO DAILY, (Reported) Cyclobenzaprine HCl 10 Mg Tablet, 10 MG PO BID, (Reported) Diclofenac Sodium 75 Mg Tablet.dr, 75 MG PO BID, (Reported) Fluticasone/Vilanterol 1 Each Blst.w.dev, 1 PUFF IH DAILY, (Reported) Gabapentin 300 Mg Capsule, 300 MG PO BID, (Reported) Gabapentin 300 Mg Capsule, 300 MG PO 1200 PRN for NERVE PAIN, (Reported) Lisinopril 10 Mg Tablet, 10 MG PO HS, (Reported) Metformin HCl 1,000 Mg Tablet, 1,000 MG PO BID, (Reported) Milnacipran HCl 100 Mg Tablet, 100 MG PO BID, (Reported) Pantoprazole Sodium 40 Mg Tablet.dr, 40 MG PO DAILY, (Reported) Pravastatin Sodium 40 Mg Tablet, 40 MG PO DAILY, (Reported) Tiotropium [place] 1 Inh Aerp, 1 CAP IH DAILY, (Reported) Trazodone HCl 150 Mg Tablet, 150 MG PO HS, (Reported) Patient Home Medication List Home Medication List Reviewed: Yes Review of Systems Constitutional: see HPI EENTM: see HPI Respiratory: no symptoms reported Cardiovascular: no symptoms reported Genitourinary: no symptoms reported Musculoskeletal: no symptoms reported Skin: no symptoms reported Psychiatric/Neurological: No Symptoms Reported Past Oltkxba-Vdlbxh-Vyjzur Hx Patient Social History Type Used: Cigarettes Former Smoker, Quit: Feb 01, 2013 2nd Hand Smoke Exposure: No Recent Hopitalizations: No Immunizations Up To Date Tetanus Booster (TDap): Unknown Date of Pneumonia Vaccine: March 11, 2016 Seasonal Allergies Seasonal Allergies: No Past Medical History Surgeries: Yes (HERNIA REPAIR; EGD/COLONOSCOPY WITH POLYPECTOMY 2017; ) Abdominal, Gallbladder, Tonsillectomy Respiratory: Yes Asthma, COPD, Emphysema Currently Using CPAP: Yes Cardiac: Yes High Cholesterol, Hypertension Neurological: No Reproductive Disorders: No Sexually Transmitted Disease: No HIV/AIDS: No Genitourinary: No Gastrointestinal: Yes Abdominal Hernia, Gastroesophageal Reflux, Diverticulosis, Hepatitis, Polyps, Irritable Bowel Musculoskeletal: Yes (RIGHT SCIATICA--WALKS WITH CANE) Degenerate Disk Disease, Arthritis, Chronic Back Pain Endocrine: Yes (OBESITY) Diabetes, Non-Insulin dep HEENT: No Loss of Vision: Bilateral Hearing Impairment: Hearing Aide Right Cancer: No Psychosocial: No Integumentary: No Blood Disorders: No Adverse Reaction/Blood Tranf: No Family Medical History Heart Disease, Cancer, Diabetes, Hypertension Physical Exam Vital Signs Vital Signs - First Documented 02/24/21 16:40 Temp 36.4 Pulse 73 Resp 16 B/P (MAP) 151/78 (102) Pulse Ox 96 O2 Delivery Room Air Capillary Refill : Height, Weight, BMI Height: 5'9.00" Weight: 240lbs. 4.0oz. 108.787724lf; 47.3 BMI Method:Stated General Appearance: WD/WN, no apparent distress HEENT: PERRL/EOMI, normal ENT inspection Respiratory: normal breath sounds, no respiratory distress, no accessory muscle use Shoulder: normal inspection, non-tender Elbow/Forearm: normal inspection, non-tender Hand: normal inspection, non-tender, no evidence of injury Neurologic/Tendon: normal sensation, normal motor functions Neurologic/Psychiatric: alert, normal mood/affect, oriented x 3 Skin: normal color, warm/dry Progress/Results/Core Measures Results/Orders My Orders Orders - JANELLE CASTAÑEDA APRN Shoulder, Left, 3 Views (02/24/21 16:44) Vital Signs/I&O 02/24/21 16:40 Temp 36.4 Pulse 73 Resp 16 B/P (MAP) 151/78 (102) Pulse Ox 96 O2 Delivery Room Air Departure Impression Primary Impression: Internal derangement of left shoulder Disposition: 01 HOME, SELF-CARE Condition: Stable Departure-Patient Inst. Decision time for Depature: 16:48 Referrals: SANFORD BENITEZ MD (PCP/Family) Primary Care Physician Patient Instructions: Shoulder Pain (DC) Add. Discharge Instructions: 1. Anti-inflammatories like ibuprofen or naproxen to help with the pain. Follow-up with Dr. Benitez next week if the pain persists to discuss scheduling an MRI to further evaluate the shoulder pain. All discharge instructions reviewed with patient and/or family. Voiced understanding. JANELLE CASTAÑEDA ASSOCIATE Feb 24, 2021 16:49
--- NOTE | 2021-02-24 17:06 | Diagnostic Imaging Report ---
INDICATION: Popping sensation. EXAMINATION: Left shoulder at 4:57 p.m. Three views were obtained. COMPARISON: There is no prior study available for comparison. There is no fracture, dislocation or acute bony abnormality evident. There is only mild degenerative disease of the glenohumeral joint but there is at least moderate degenerative disease of the acromioclavicular joint. The soft tissues are unremarkable. IMPRESSION: 1. There is no evidence for an acute bony abnormality. 2. If there is clinical concern regarding injury to the rotator cuff or labrum, then MRI would be recommended for further study. Dictated by: Dictated on workstation # [id number]
== END 2021-02-24 17:18 | disposition home or self-care (01) ==
LOC: EDUNIT# 16:26 → ER 16:28
DX: M24.9 Joint derangement, unspecified (principal); E66.9 Obesity, unspecified; J44.9 Chronic obstructive pulmonary disease, unspecified; I10 Essential (primary) hypertension; E78.00 Pure hypercholesterolemia, unspecified; K21.9 Gastro-esophageal reflux disease without esophagitis; E11.9 Type 2 diabetes mellitus without complications; Z87.891 Personal history of nicotine dependence; Z68.42 Body mass index [BMI] 45.0-49.9, adult; Z79.82 Long term (current) use of aspirin; Z79.84 Long term (current) use of oral hypoglycemic drugs
CPT/HCPCS: 73030; 99282

== ENCOUNTER → 2021-08-15 | Outpatient (CLI) | payer MEDICARE, MEDICAID ==
[~2021-08-15] MED LIST changes: -OMEP40CA27 PO; +OMEP40CA6 PO
== END ==
LOC: LABNPT 06:33
PROVIDERS: ATTEND Nurse Practitioner Family
DX: Z01.812 Encounter for preprocedural laboratory examination (principal); Z20.822 Contact with and (suspected) exposure to COVID-19
CPT/HCPCS: 87635

== ENCOUNTER 2021-08-17 21:10 | Outpatient (CLI) | payer MEDICARE, MEDICAID | END 2021-08-18 07:05 | disposition home or self-care (01) | LOC: SLEEP 21:10 | PROVIDERS: ATTEND Nurse Practitioner Family | DX: G47.33 Obstructive sleep apnea (adult) (pediatric) (principal) | CPT/HCPCS: 95810 ==

== ENCOUNTER → 2021-09-13 | Outpatient (CLI) | payer MEDICARE, MEDICAID | LOC: LABNPT 06:06 | PROVIDERS: ATTEND Nurse Practitioner Family | DX: G47.33 Obstructive sleep apnea (adult) (pediatric) (principal); Z20.822 Contact with and (suspected) exposure to COVID-19 | CPT/HCPCS: 87635 ==

== ENCOUNTER → 2021-09-15 | Outpatient (CLI) | payer MEDICARE, MEDICAID | LOC: SLEEP 20:36 | PROVIDERS: ATTEND Nurse Practitioner Family | DX: G47.33 Obstructive sleep apnea (adult) (pediatric) (principal); G47.36 Sleep related hypoventilation in conditions classified elsewhere | CPT/HCPCS: 95811 ==

== ENCOUNTER 2021-09-25 09:20 | Outpatient (RCR) | payer MEDICARE, MEDICAID | END 2021-09-25 10:00 | disposition home or self-care (01) | PROVIDERS: ATTEND Nurse Practitioner Family | DX: J43.9 Emphysema, unspecified (principal); I10 Essential (primary) hypertension; E11.9 Type 2 diabetes mellitus without complications ==

== ENCOUNTER 2021-12-11 08:35 | Outpatient (CLI) | payer MEDICARE, MEDICAID ==
[~2021-12-11] VITALS: Ht 175.3 cm; Wt 145.3 kg
[~2021-12-11 08:35] MED LIST changes: +CYCL10TA25 PO
[2021-12-11 09:00] VITALS: BP 150/68
[2021-12-11] MEDS ORDERED: EPINEPHrine INJECTION 1 MG/ML AMP IM PRN (09:15)
[2021-12-11] MEDS ORDERED: ACETAMINOPHEN 500 MG TAB (TYLENOL) PO PRN (09:15)
[2021-12-11] MEDS ORDERED: SOTROVIMAB 500 MG/NS 50 ML IVPB IV ONE ×2 (09:15)
[2021-12-11] MEDS ORDERED: ONDANSETRON 4 MG/2 ML (SDV) Z0FRAN IV PRN (09:15)
[2021-12-11] MEDS ORDERED: diphenhydrAMINE 50 MG/ML INJ (BENADRYL) IV PRN (09:15)
[2021-12-11 10:30] VITALS: BP 145/79
== END 2021-12-11 10:30 | disposition home or self-care (01) ==
LOC: INFUSION 08:35
PROVIDERS: ATTEND Nurse Practitioner Family
DX: U07.1 COVID-19 (principal)

== ENCOUNTER 2021-12-12 14:55 | Emergency (ER) | payer MEDICARE, MEDICAID ==
[~2021-12-12] VITALS: Ht 175 cm; Wt 145.0 kg
--- NOTE | 2021-12-12 15:20 | ED Dyspnea ---
General Chief Complaint: Respiratory Problems Stated Complaint: LOW 02,CONFUSION,COVID+ Source of Information: Patient Exam Limitations: No Limitations History of Present Illness Date Seen by Provider: Dec 12, 2021 Time Seen by Provider: 15:16 Initial Comments Patient is a 66-year-old male who presents the ED for shortness of breath. Patient is a poor historian. History of sleep apnea, COPD. He states he was diagnosed with Covid 2 weeks ago with symptoms of body aches fatigue, weakness and a cough. Those symptoms have improved but remained short of breath. States he received infusion yesterday for monoclonal antibody. Patient states he appears more confused. Denies of any chest pain, abdominal pain. Coughing has improved. Denies headache, dizziness visual changes. Patient with a steady gait here. Denies of any unilateral muscle weakness, sensory changes, history of stroke or coronary artery disease. Follows up with Dr. Armstrong for history of fast heart rate. He states he is on metoprolol. Denies blood thinner. Denies any leg swelling. Patient is recommended to wear CPAP at night for sleep apnea. Denies wearing his oxygen at night. Slightly hypoxic 90 to 91% on room air. Denies using breathing treatments at home. Denies diarrhea, vomiting. Allergies and Home Medications Allergies Coded Allergies: No Known Drug Allergies (Unverified , 05/01/17) Patient Home Medication List Home Medication List Reviewed: Yes Acetaminophen (Tylenol Extra Strength) 500 Mg Tablet, 1,500 MG PO 0800,2100, (Reported) Entered as Reported by: DOMINGO RIVAS on 01/26/19914 Albuterol Sulfate (Ventolin Hfa) 18 Gm Hfa.aer.ad, 1-2 PUFF IH QID PRN for SHORTNESS OF BREATH, (Reported) Entered as Reported by: REJI CABEZAS on 04/23/16 1217 Amlodipine Besylate (Amlodipine Besylate) 10 Mg Tablet, 10 MG PO DAILY, (Reported) Entered as Reported by: DOMINGO RIVAS on 01/26/19 09 Aspirin (Aspirin EC) 325 Mg Tablet.dr, 325 MG PO DAILY, (Reported) Entered as Reported by: DOMINGO RIVAS on 01/26/19 09 Cyclobenzaprine HCl (Cyclobenzaprine HCl) 10 Mg Tablet, 10 MG PO BID, (Reported) Entered as Reported by: DOMINGO RIVSA on 01/26/19914 Diclofenac Sodium (Diclofenac Sodium) 75 Mg Tablet.dr, 75 MG PO BID, (Reported) Entered as Reported by: DOMINGO RIVAS on 01/26/19914 Fluticasone/Vilanterol (Breo Ellipta 100-25 Mcg INH) 1 Each Blst.w.dev, 1 PUFF IH DAILY, (Reported) Entered as Reported by: KEO UGALDE on 05/01/17 152 Gabapentin (Gabapentin) 300 Mg Capsule, 300 MG PO BID, (Reported) Entered as Reported by: DOMINGO RIVAS on 01/26/19914 Gabapentin (Gabapentin) 300 Mg Capsule, 300 MG PO 1200 PRN for NERVE PAIN, (Reported) Entered as Reported by: DOMINGO RIVAS on 01/26/19914 Lisinopril (Lisinopril) 10 Mg Tablet, 10 MG PO HS, (Reported) Entered as Reported by: KEO UGALDE on 05/01/17 152 Metformin HCl (Metformin HCl) 1,000 Mg Tablet, 1,000 MG PO BID, (Reported) Entered as Reported by: DOMINGO RIVAS on 01/26/19914 Milnacipran HCl (Savella) 100 Mg Tablet, 100 MG PO BID, (Reported) Entered as Reported by: DOMINGO RIVAS on 01/26/19 132 Pantoprazole Sodium (Protonix) 40 Mg Tablet.dr, 40 MG PO DAILY, (Reported) Entered as Reported by: DOMINGO RIVAS on 01/26/19914 Pravastatin Sodium (Pravastatin Sodium) 40 Mg Tablet, 40 MG PO DAILY, (Reported) Entered as Reported by: KEO UGALDE on 05/01/17 152 Tiotropium [place] (Spiriva) 1 Inh Aerp, 1 CAP IH DAILY, (Reported) Entered as Reported by: DOMINGO RIVAS on 01/26/19 133 Trazodone HCl (Trazodone HCl) 150 Mg Tablet, 150 MG PO HS, (Reported) Entered as Reported by: DOMINGO RIVAS on 01/26/19914 Review of Systems Review of Systems Constitutional: chills; No diaphoresis; fever, malaise, weakness EENTM: No double vision, No vision loss, No throat pain, No throat swelling Respiratory: cough, short of breath; No wheezing Gastrointestinal: No abdominal pain, No diarrhea, No nausea, No vomiting Genitourinary: No decreased output Musculoskeletal: No back pain Skin: No change in color, No change in hair/nails Psychiatric/Neurological: Denies Anxiety, Denies Emotional Problems, Denies Numbness All Other Systems Reviewed Negative Unless Noted: Yes Past Tjahgdr-Iewqeh-Iukxgc Hx Immunizations Up To Date Tetanus Booster (TDap): Unknown Seasonal Allergies Seasonal Allergies: No Past Medical History Surgeries: Yes (HERNIA REPAIR; EGD/COLONOSCOPY WITH POLYPECTOMY 2017; ) Abdominal, Gallbladder, Tonsillectomy Respiratory: Yes Asthma, COPD, Emphysema Currently Using CPAP: Yes Cardiac: Yes High Cholesterol, Hypertension Neurological: No Reproductive Disorders: No Sexually Transmitted Disease: No HIV/AIDS: No Genitourinary: No Gastrointestinal: Yes Abdominal Hernia, Gastroesophageal Reflux, Diverticulosis, Hepatitis, Polyps, Irritable Bowel Musculoskeletal: Yes (RIGHT SCIATICA--WALKS WITH CANE) Degenerate Disk Disease, Arthritis, Chronic Back Pain Endocrine: Yes (OBESITY) Diabetes, Non-Insulin dep HEENT: No Loss of Vision: Bilateral Hearing Impairment: Hearing Aide Right Cancer: No Psychosocial: No Integumentary: No Blood Disorders: No Adverse Reaction/Blood Tranf: No Family Medical History Heart Disease, Cancer, Diabetes, Hypertension Physical Exam Vital Signs Vital Signs - First Documented 12/12/21 12/12/21 15:05 15:49 Temp 36.4 Pulse 103 Resp 13 B/P (MAP) 139/100 (113) Pulse Ox 89 O2 Delivery Room Air O2 Flow Rate 1.00 Capillary Refill : Less Than 3 Seconds Height, Weight, BMI Height: 5'9.00" Weight: 240lbs. 4.0oz. [id number]; 47.00 BMI Method:Stated General Appearance: No Apparent Distress, WD/WN HEENT: PERRL/EOMI, TMs Normal, Normal ENT Inspection, Pharynx Normal Neck: Full Range of Motion, Normal Inspection, Non Tender, Supple Respiratory: Chest Non Tender, Lungs Clear, Normal Breath Sounds, No Accessory Muscle Use, No Respiratory Distress Cardiovascular: Tachycardia Gastrointestinal: Normal Bowel Sounds, No Organomegaly, No Pulsatile Mass, Non Tender, Soft Extremity: Normal Capillary Refill, Normal Range of Motion, Non Tender, Pedal Edema Skin: Normal Color, Warm/Dry Progress/Results/Core Measures Results/Orders Lab Results Laboratory Tests Test 12/12/21 15:20 12/12/21 16:53 Range/Units White Blood Count 4.2 L 4.3-11.0 10^3/uL Red Blood Count 5.06 4.30-5.52 10^6/uL Hemoglobin 11.3 L 13.3-17.7 g/dL Hematocrit 38 L 40-54 % Mean Corpuscular Volume 75 L 80-99 fL Mean Corpuscular Hemoglobin 22 L 25-34 pg Mean Corpuscular Hemoglobin Concent 30 L 32-36 g/dL Red Cell Distribution Width 16.1 H 10.0-14.5 % Platelet Count 269 130-400 10^3/uL Mean Platelet Volume 9.4 9.0-12.2 fL Immature Granulocyte % (Auto) 1 % Neutrophils (%) (Auto) 50 42-75 % Lymphocytes (%) (Auto) 34 12-44 % Monocytes (%) (Auto) 15 H 0-12 % Eosinophils (%) (Auto) 1 0-10 % Basophils (%) (Auto) 0 0-10 % Neutrophils # (Auto) 2.1 1.8-7.8 10^3/uL Lymphocytes # (Auto) 1.4 1.0-4.0 10^3/uL Monocytes # (Auto) 0.6 0.0-1.0 10^3/uL Eosinophils # (Auto) 0.0 0.0-0.3 10^3/uL Basophils # (Auto) 0.0 0.0-0.1 10^3/uL Immature Granulocyte # (Auto) 0.0 0.0-0.1 10^3/uL Prothrombin Time 13.0 12.2-14.7 SEC INR Comment 1.0 0.8-1.4 Activated Partial Thromboplast Time 37 H 24-35 SEC D-Dimer 0.87 H 0.00-0.49 UG/ML Sodium Level 136 135-145 MMOL/L Potassium Level 3.3 L 3.6-5.0 MMOL/L Chloride Level 96 L 98-107 MMOL/L Carbon Dioxide Level 28 21-32 MMOL/L Anion Gap 12 5-14 MMOL/L Blood Urea Nitrogen 9 7-18 MG/DL Creatinine 0.81 0.60-1.30 MG/DL Estimat Glomerular Filtration Rate 97 BUN/Creatinine Ratio 11 Glucose Level 140 H 70-105 MG/DL Calcium Level 8.7 8.5-10.1 MG/DL Corrected Calcium 8.8 8.5-10.1 MG/DL Magnesium Level 1.6 1.6-2.4 MG/DL Total Bilirubin 0.4 0.1-1.0 MG/DL Aspartate Amino Transf (AST/SGOT) 43 H 5-34 U/L Alanine Aminotransferase (ALT/SGPT) 21 0-55 U/L Alkaline Phosphatase 60 40-136 U/L Troponin I < 0.028 <0.028 NG/ML B-Type Natriuretic Peptide < 10.0 <100.0 PG/ML Total Protein 7.4 6.4-8.2 GM/DL Albumin 3.9 3.2-4.5 GM/DL Lipase 58 8-78 U/L Urine Color YELLOW Urine Clarity CLEAR Urine pH 6.5 5-9 Urine Specific [place] <=1.005 1.016-1.022 Urine Protein 1+ H NEGATIVE Urine Glucose (UA) NEGATIVE NEGATIVE Urine Ketones NEGATIVE NEGATIVE Urine Nitrite NEGATIVE NEGATIVE Urine Bilirubin NEGATIVE NEGATIVE Urine Urobilinogen 0.2 < = 1.0 MG/DL Urine Leukocyte Esterase NEGATIVE NEGATIVE Urine RBC (Auto) NEGATIVE NEGATIVE Urine RBC NONE /HPF Urine WBC 0-2 /HPF Urine Squamous Epithelial Cells NONE /HPF Urine Renal Epithelial Cells NONE /HPF Urine Crystals NONE /LPF Urine Bacteria NEGATIVE /HPF Urine Casts NONE /LPF Urine Mucus NEGATIVE /LPF Urine Culture Indicated NO My Orders Orders - MARCELA NINA PA Cbc With Automated Diff (12/12/21 15:14) Comprehensive Metabolic Panel (12/12/21 15:14) Lipase (12/12/21 15:14) Troponin I Rufus (12/12/21 15:14) Bnp Rufus (12/12/21 15:14) Magnesium (12/12/21 15:14) Partial Thromboplastin Time (12/12/21 15:14) Protime With Inr (12/12/21 15:14) Chest 1 View, Ap/Pa Only (12/12/21 15:14) Ekg Tracing (12/12/21 15:14) Fibrin Degradation Products (12/12/21 15:53) Ns Iv 500 Ml (Sodium Chloride 0.9%) (12/12/21 15:53) Ns Iv 500 Ml (Sodium Chloride 0.9%) (12/12/21 15:59) Ct Angio Chest W (12/12/21 16:17) Iohexol Injection (Omnipaque 350 Mg/Ml 1 (12/12/21 16:30) Received Contrast (Hold Metformin- Contr (12/12/21 16:30) Ns (Ivpb) (Sodium Chloride 0.9% Ivpb Bag (12/12/21 16:30) Ua Culture If Indicated (12/12/21 16:30) Medications Given in ED Current Medications Medications Dose Ordered Sig/Mon[place]z Route Start Time Stop Time Status Last Admin Dose Admin Iohexol 100 ml ONCE ONCE IV 12/12/21 16:30 12/12/21 16:31 DC 12/12/21 16:38 100 ML Sodium Chloride 100 ml ONCE ONCE IV 12/12/21 16:30 12/12/21 16:31 DC 12/12/21 16:38 80 ML Vital Signs/I&O 12/12/21 12/12/21 12/12/21 15:05 15:49 18:00 Temp 36.4 36.4 Pulse 103 97 Resp 13 18 B/P (MAP) 139/100 (113) 142/86 Pulse Ox 89 94 91 O2 Delivery Room Air Nasal Cannula Room Air O2 Flow Rate 1.00 EKG : Comment Sinus tachycardia, 98 bpm, QRS duration 100 MS, QTc 461 MS. Departure Communication (Admissions) Patient is a 66-year-old male who is a poor historian states that he received monoclonal antibody infusion yesterday. He states he was diagnosed with Covid 2 weeks ago. Not sure if this was sooner secondary to the infusion occurring yesterday. States he has had increased short of breath today. Patient with a history of COPD. Does have an inhaler at home which she has not been using. Recently on antibiotics and steroid. Patient was slightly tachycardic. No febrile. Oxygen level 91 to 93%. Was placed on 1 L with significant improvement. Patient white blood count 4.2. Discussed blood cultures and lactic acid as he did meet for SIRS criteria. Initially patient was refusing any formal lab work. Discussed with patient concerning that he may have a pn eumonia or other etiologies such as PE. He denies of any specific chest pain or abdominal pain, vomiting or diarrhea. Reports feeling short of breath. Supposedly patient has oxygen at home and was recommended wearing 1 L at home. Patient with normal liver enzymes and kidney function. Potassium 3.38 slightly dehydrated. Was given a small dose of IV fluids 500 mill. Chest x-ray without evidence of consolidation. Slight elevated D-dimer with negative cardiac work- up. Denies history of CHF, coronary artery disease. History of fast heart rate currently on metoprolol. Currently being managed by Dr. Armstrong. CT angio concerning for viral pneumonia. No evidence of PE. No evidence of pericardial effusion. Patient was observed here in the ED. Discussed all results with patient. Patient requesting to be discharged. Does have oxygen at home. Recommend wearing 1 L until follow-up with primary care physician. He refused any secondary meant medication such as steroids at this time. Urinalysis negative for infection. Patient will be discharged with outpatient follow-up Impression Primary Impression: Pneumonia due to COVID-19 virus Disposition: 01 HOME, SELF-CARE Condition: Stable Departure-Patient Inst. Decision time for Depature: 17:49 Referrals: JOSIE GURROLA APRN (PCP/Family) Primary Care Physician Patient Instructions: COVID-19 Overview MARCELA NINA Dec 12, 2021 15:20
[2021-12-12 15:31] LABS: BASOPHILS % (AUTO) 0 % (0-10); EOSINOPHILS % (AUTO) 1 % (0-10); HEMATOCRIT 38 % (40-54); HEMOGLOBIN 11.3 g/dL (13.3-17.7); LYMPHOCYTES # (AUTO) 1.4 10^3/uL (1.0-4.0); LYMPHOCYTES % (AUTO) 34 % (12-44); MEAN CORPUSCULAR HEMOGLOBIN 22 pg (25-34); MEAN CORPUSCULAR HGB CONC 30 g/dL (32-36); MEAN CORPUSCULAR VOLUME 75 fL (80-99); MEAN PLATELET VOLUME 9.4 fL (9.0-12.2); MONOCYTES # (AUTO) 0.6 10^3/uL (0.0-1.0); MONOCYTES % (AUTO) 15 % (0-12); NEUTROPHILS # (AUTO) 2.1 10^3/uL (1.8-7.8); NEUTROPHILS % (AUTO) 50 % (42-75); PLATELET COUNT 269 10^3/uL (130-400); WHITE BLOOD COUNT 4.2 10^3/uL (4.3-11.0)
[2021-12-12 15:43] LABS: ALBUMIN 3.9 GM/DL (3.2-4.5); CHLORIDE 96 MMOL/L (98-107); POTASSIUM 3.3 MMOL/L (3.6-5.0); SODIUM 136 MMOL/L (135-145)
[2021-12-12 15:44] LABS: CALCIUM 8.7 MG/DL (8.5-10.1)
[2021-12-12 15:45] LABS: GLUCOSE 140 MG/DL (70-105)
[2021-12-12 15:46] LABS: TOTAL PROTEIN 7.4 GM/DL (6.4-8.2)
[2021-12-12 15:47] LABS: BILIRUBIN,TOTAL 0.4 MG/DL (0.1-1.0); CARBON DIOXIDE 28 MMOL/L (21-32)
[2021-12-12 15:49] LABS: ALKALINE PHOSPHATASE 60 U/L (40-136); CREATININE SERUM 0.81 MG/DL (0.60-1.30); GFR ESTIMATED 97
[2021-12-12 15:50] LABS: BUN/CREATININE RATIO 11
--- NOTE | 2021-12-12 15:51 | Diagnostic Imaging Report ---
INDICATION: Cough. EXAMINATION: Chest 12/12/2021 COMPARISON: 06/02/2019 FINDINGS: The heart is stable. Pulmonary vasculature is congested. There is atelectasis at the left lung base. No focal infiltrates, effusions or pneumothorax. IMPRESSION: 1. Pulmonary vascular congestion. 2. Left base atelectasis. Dictated by: Dictated on workstation # [id number]
[2021-12-12 15:52] LABS: ALANINE AMINOTRANSFERASE 21 U/L (0-55); MAGNESIUM 1.6 MG/DL (1.6-2.4)
[2021-12-12 15:53] LABS: LIPASE 58 U/L (8-78)
[2021-12-12] MEDS ORDERED: NS IV 500 ML 500 ML IV STA (15:53)
[2021-12-12] MEDS ORDERED: NS IV 500 ML 500 ML ONE (15:59)
[2021-12-12] MEDS ORDERED: IOHEXOL 350 MG/ML 100 ML (OMNIPAQUE 350) VIAL IV ONE (16:30)
[2021-12-12] MEDS ORDERED: NS 100 ML (IVPB) BAG IV ONE (16:30)
[2021-12-12] MEDS ORDERED: HOLD METFORMIN - RECEIVED CONTRAST 20 ML VIAL IV SCH (16:30)
--- NOTE | 2021-12-12 16:53 | Diagnostic Imaging Report ---
PROCEDURE: CT angiography of the chest with contrast. TECHNIQUE: Multiple contiguous axial images were obtained through the chest after uneventful bolus administration of intravenous contrast. 3D reconstructed CTA MIP acquisitions were also performed. Auto Exposure Controls were utilized during the CT exam to meet ALARA standards for radiation dose reduction. INDICATION: Shortness of breath, Covid. FINDINGS: No pulmonary arterial filling defect. No evidence for PE. The thoracic aorta is patent, nonaneurysmal, and nonacute. There are 5 lobe multifocal groundglass pulmonary infiltrates in keeping with the provided history of Covid pneumonia. There is some background air trapping, likely COPD. No lung mass. No adenopathy. No effusion, pneumothorax, or pneumomediastinum. No acute chest wall abnormality. No pleural or pericardial effusion. The upper abdomen shows no acute appearing pathology. IMPRESSION: 1. Negative for PE or acute aortic disease. 2. There are 5 lobe multifocal groundglass infiltrates, presumed owing to Covid pneumonia, with some background air trapping and COPD. Dictated by: Dictated on workstation # [id number]
[2021-12-12 17:07] LABS: BILIRUBIN,URINE NEGATIVE (NEGATIVE); CLARITY,URINE CLEAR; COLOR,URINE YELLOW; GLUCOSE, URINE (UA) NEGATIVE (NEGATIVE); KETONES,URINE NEGATIVE (NEGATIVE); LEUKOCYTE ESTERASE ,URINE NEGATIVE (NEGATIVE); NITRITE,URINE NEGATIVE (NEGATIVE); PH,URINE 6.5 (5-9); PROTEIN,URINE 1+ (NEGATIVE)
[2021-12-12 17:15] LABS: BACTERIA,URINE NEGATIVE /HPF; WBC,URINE 0-2 /HPF
[2021-12-12 18:00] VITALS: BP 142/86
== END 2021-12-12 18:01 | disposition home or self-care (01) ==
LOC: EDUNIT# 14:55 → ER 14:57
DX: U07.1 COVID-19 (principal); J12.82 Pneumonia due to coronavirus disease 2019; R00.0 Tachycardia, unspecified; J44.9 Chronic obstructive pulmonary disease, unspecified; I10 Essential (primary) hypertension; E78.00 Pure hypercholesterolemia, unspecified; E11.9 Type 2 diabetes mellitus without complications; K21.9 Gastro-esophageal reflux disease without esophagitis; E66.9 Obesity, unspecified; Z68.42 Body mass index [BMI] 45.0-49.9, adult; Z79.84 Long term (current) use of oral hypoglycemic drugs; Z79.899 Other long term (current) drug therapy; Z79.82 Long term (current) use of aspirin
CPT/HCPCS: 36415; 71045; 71275; 80053; 81000; 83690; 83735; 83880; 84484; 85025; 85379; 85610; 85730; 93005

== ENCOUNTER → 2022-05-30 | Outpatient (CLI) | payer MEDICARE, MEDICAID ==
[~2022-05-30] MED LIST changes: +BARIUM for suspension 98% w/w (Vanilla Silq High Density) PO ONE
--- NOTE | 2022-05-30 12:29 | Diagnostic Imaging Report ---
INDICATION: Pre-gastric sleeve surgery. The patient ingested effervescent crystals as well as thin and thick barium and imaging of the esophagus, stomach and proximal small bowel was performed. 0.9 minutes of fluoroscopic time was utilized. Preliminary radiograph of the abdomen is unremarkable. The esophagus has a smooth contour. No mass or stricture is identified. There does appear to be a very small sliding-type HIDA hernia. No significant gastroesophageal reflux was demonstrated. The stomach is normal in configuration. Duodenal bulb is without deformity. The visualized proximal small bowel loops are unremarkable. IMPRESSION: Small sliding-type hiatal hernia. The study is otherwise unremarkable. Dictated by: Dictated on workstation # [id number]
== END ==
LOC: RAD 11:15
PROVIDERS: ATTEND Surgery
DX: Z01.818 Encounter for other preprocedural examination (principal); K44.9 Diaphragmatic hernia without obstruction or gangrene; K21.9 Gastro-esophageal reflux disease without esophagitis; E66.01 Morbid (severe) obesity due to excess calories
CPT/HCPCS: 74246

== ENCOUNTER 2022-06-07 21:43 | Emergency (ER) | payer MEDICARE, MEDICAID ==
[~2022-06-07] VITALS: Ht 175.3 cm; Wt 145.1 kg
[~2022-06-07 21:43] MED LIST changes: -BARIUM for suspension 98% w/w (Vanilla Silq High Density) PO ONE
[2022-06-07 22:00] VITALS: BP 166/76
--- NOTE | 2022-06-07 22:19 | ED Back Pain ---
General Chief Complaint: Back Problems Stated Complaint: LEG PAIN Nursing Triage Note: pt ambulatory to room with use of cane. pt states this evening he got a shooting pain from his right lower back to the back part of his thigh. pt states he has has sciatic nerve pain in the past and this "is not quite like that." pt family member in room states he has concern for blood clots because "the back of his legs felt hotter than the rest." and wanted this checked out. pt reports taking 181 aspirin daily Source of Information: Patient History of Present Illness Date Seen by Provider: Jun 07, 2022 Time Seen by Provider: 22:07 Initial Comments PT ARRIVES VIA POV FROM HOME C/O RIGHT LEG PAIN BEGAN AROUND 2044 WHILE SITTING AND WATCHING TV STATES PAIN STARTS IN LOWER BACK AND GOES TO RIGHT HIP AND ALL AROUND RIGHT THIGH NO PARESTHESIAS OR MOTOR DEFICITS--HAS PERIPHERAL NEUROPATHY AND STATES HIS FEET SOMETIMES GO NUMB BUT DO NOT FEEL NUMB NOW NOW SWELLING TO LEGS NO REDNESS OR DISCOLORATION TO LEGS NO INJURY OR UNUSUAL ACTIVITY STATES "IT HURT SO BAD I COULDN'T STAND UP" HAS NOT TAKEN ANYTHING FOR PAIN, BUT HAS MULTIPLE MEDICATIONS AT HOME AND HAS NOT TAKEN ANY OF HIS NIGHT TIME/EVENING MEDICATIONS REVIEWED MEDICATION LIST WITH PT--HE IS PRESCRIBED TIZANIDINE 4 MG TID, BUT HAS NOT TAKEN ANY TODAY, HE IS ON PREGABALIN FOR NEUROPATHY, BUT HAS NOT TAKEN PM DOSE. HE TAKES TYLENOL 500 MG TID, BUT HAS NOT TAKEN ANY SINCE NOON. HE HAS ALSO TAKING 2 DIFFERENT NSAIDS EVERY DAY--CELECOXIB 100 MG BID, AND DICLOFENAC 75 MG BID. PT WALKED INTO ER ON HIS OWN WITH A CANE. PT HAS HISTORY OF CHRONIC BACK AND LEG PAIN, AND FREQUENT RIGHT SIDED SCIATICA Other Comments PCP: CARMEN DAVIES AT [facility] IN [place] Allergies and Home Medications Allergies Coded Allergies: No Known Drug Allergies (Unverified , 05/01/17) Patient Home Medication List Home Medication List Reviewed: Yes Acetaminophen (Tylenol Extra Strength) 500 Mg Tablet, 1,500 MG PO 0800,2100, (Reported) Entered as Reported by: DOMINGO RIVAS on 01/26/19 0915 Albuterol Sulfate (Ventolin Hfa) 18 Gm Hfa.aer.ad, 1-2 PUFF IH QID PRN for SHORTNESS OF BREATH, (Reported) Entered as Reported by: REJI CABEZAS on 04/23/16 1217 Amlodipine Besylate (Amlodipine Besylate) 10 Mg Tablet, 10 MG PO DAILY, (Reporte d) Entered as Reported by: DOMINGO RIVAS on 01/26/19914 Aspirin (Aspirin EC) 325 Mg Tablet.dr, 325 MG PO DAILY, (Reported) Entered as Reported by: DOMINGO RIVAS on 01/26/19914 Cyclobenzaprine HCl (Cyclobenzaprine HCl) 10 Mg Tablet, 10 MG PO BID, (Reported) Entered as Reported by: DOMINGO RIVAS on 01/26/19914 Diclofenac Sodium (Diclofenac Sodium) 75 Mg Tablet.dr, 75 MG PO BID, (Reported) Entered as Reported by: DOMINGO RIVAS on 01/26/19914 Diclofenac Sodium (Voltaren Arthritis Pain) 1 % Gel..gram., 20 GM TP QID Prescribed by: HSARIFA DC on 06/07/22 2320 Fluticasone/Vilanterol (Breo Ellipta 100-25 Mcg INH) 1 Each Blst.w.dev, 1 PUFF IH DAILY, (Reported) Entered as Reported by: KEO UGALDE on 05/01/17 152 Gabapentin (Gabapentin) 300 Mg Capsule, 300 MG PO BID, (Reported) Entered as Reported by: DOMINGO RIVAS on 01/26/19914 Gabapentin (Gabapentin) 300 Mg Capsule, 300 MG PO 1200 PRN for NERVE PAIN, (Reported) Entered as Reported by: DOMINGO RIVAS on 01/26/19914 Lisinopril (Lisinopril) 10 Mg Tablet, 10 MG PO HS, (Reported) Entered as Reported by: KEO UGALDE on 05/01/17 1522 Metformin HCl (Metformin HCl) 1,000 Mg Tablet, 1,000 MG PO BID, (Reported) Entered as Reported by: DOMINGO RIVAS on 01/26/19914 Milnacipran HCl (Savella) 100 Mg Tablet, 100 MG PO BID, (Reported) Entered as Reported by: DOMINGO RIVAS on 01/26/19 1323 Pantoprazole Sodium (Protonix) 40 Mg Tablet.dr, 40 MG PO DAILY, (Reported) Entered as Reported by: DOMINGO RIVAS on 3/19/19 0915 Pravastatin Sodium (Pravastatin Sodium) 40 Mg Tablet, 40 MG PO DAILY, (Reported) Entered as Reported by: KEO UGALDE on 05/01/17 1522 Tiotropium [place] (Spiriva) 1 Inh Aerp, 1 CAP IH DAILY, (Reported) Entered as Reported by: DOMINGO RIVAS on 01/26/19 1331 Tramadol HCl (Ultram) 50 Mg Tablet, 50 MG PO Q4H Prescribed by: SHARIFA DC on 06/07/22 2320 Trazodone HCl (Trazodone HCl) 150 Mg Tablet, 150 MG PO HS, (Reported) Entered as Reported by: DOMINGO RIVAS on 01/26/19 0915 Review of Systems Constitutional: no symptoms reported Respiratory: No short of breath Cardiovascular: No chest pain Musculoskeletal: see HPI Skin: no symptoms reported; No rash Psychiatric/Neurological: See HPI Past Zoycdjy-Lzkqvv-Kubjxc Hx Patient Social History Tobacco Use?: Yes Tobacco type used: Cigarettes Smoking Status: Former Smoker Immunizations Up To Date Tetanus Booster (TDap): Unknown Seasonal Allergies Seasonal Allergies: No Past Medical History Surgery/Hospitalization HX: COPD history, HTN Surgeries: Yes (HERNIA REPAIR; EGD/COLONOSCOPY WITH POLYPECTOMY 2017; ) Abdominal, Gallbladder, Tonsillectomy Respiratory: Yes Asthma, COPD, Emphysema Currently Using CPAP: Yes Cardiac: Yes High Cholesterol, Hypertension Neurological: Yes Neuropathy Reproductive Disorders: No Sexually Transmitted Disease: No HIV/AIDS: No Genitourinary: No Gastrointestinal: Yes Abdominal Hernia, Gastroesophageal Reflux, Diverticulosis, Hepatitis, Polyps, Irritable Bowel Musculoskeletal: Yes (RIGHT SCIATICA--WALKS WITH CANE) Degenerate Disk Disease, Arthritis, Chronic Back Pain Endocrine: Yes (OBESITY) Diabetes, Non-Insulin dep HEENT: Yes Loss of Vision: Bilateral Hearing Impairment: Hearing Aide Right Cancer: No Psychosocial: No Integumentary: No Blood Disorders: No Adverse Reaction/Blood Tranf: No Family Medical History Heart Disease, Cancer, Diabetes, Hypertension Physical Exam Vital Signs Vital Signs - First Documented 06/07/22 22:00 Temp 36.7 Pulse 73 Resp 16 B/P (MAP) 166/76 (106) Pulse Ox 95 Capillary Refill : Height, Weight, BMI Height: 5'9.00" Weight: 240lbs. 4.0oz. 108.107542uw; 47.00 BMI Method:Stated General Appearance: No Apparent Distress, WD/WN, Obese Cardiovascular: Regular Rate, Rhythm, No Edema Back: No CVA Tenderness, Other (TENDERNESS OVER RIGHT SI JOINT. NO TENDERNESS ANYWHERE ELSE ON BACK. 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 PT STATES AT DISMISSAL THAT HE HAS HIS FIRST APPOINTMENT WITH [facility] ON Friday06/12/22. Diagnostic Imaging Comments XRAYS--ALL PENDING RADIOLOGIST REVIEW LUMBAR SPINE--NO ACUTE PROCESS, DEGENERATIVE CHANGES PELVIS--NO ACUTE PROCESS RIGHT FEMUR--NO ACUTE PROCESS Reviewed: Reviewed by Me Departure Impression Primary Impression: Low back pain with right-sided sciatica Disposition: HOME, SELF-CARE Condition: Stable Departure-Patient Inst. Decision time for Depature: 23:18 Referrals: NO,LOCAL PHYSICIAN (PCP/Family) Primary Care Physician Patient Instructions: Sciatica ED, Low Back Pain ED Add. Discharge Instructions: CONTINUE YOUR REGULAR MEDICATIONS PRESCRIBED KEEP YOUR APPOINTMENT WITH PAIN MANAGEMENT NEXT WEEK. FOLLOW UP WITH YOUR REGULAR DR NEXT WEEK FOR FURTHER CARE All discharge instructions reviewed with patient and/or family. Voiced understanding. Scripts Diclofenac Sodium (Voltaren Arthritis Pain) 1 % Gel..gram. 20 GM TP QID, #1 EA Prov: SHARIFA DC DO 06/07/22 Tramadol HCl (Ultram) 50 Mg Tablet 50 MG PO Q4H for Pain, #20 TAB Prov: SHARIFA DC DO 06/07/22 SHARIFA DC DO Jun 07, 2022 22:19
[2022-06-07] MEDS ORDERED: DICL20GE TP (23:20)
[2022-06-07] MEDS ORDERED: TRAM-42 PO (23:20)
--- NOTE | 2022-06-08 06:45 | Diagnostic Imaging Report ---
EXAMINATION: Right femur radiograph EXAM DATE: 06/07/2022 11:06 PM COMPARISON: None available. HISTORY: leg pain TECHNIQUE: 5 views FINDINGS: There is no acute fracture, dislocation, or destructive osseous process. Mild joint space narrowing at the right hip with small osteophytes. The soft tissues are normal. IMPRESSION: 1. Degenerative changes of the right hip without acute osseous abnormality. Dictated by: Dictated on workstation # [id number]
--- NOTE | 2022-06-08 06:47 | Diagnostic Imaging Report ---
EXAMINATION: Lumbar spine radiograph EXAM DATE: 06/07/2022 11:06 PM COMPARISON: 04/16/2016 HISTORY: low back pain TECHNIQUE: Pre- views FINDINGS: Vertebral body heights and alignment are normal. There is multilevel lumbar spondylosis. Multilevel facet hypertrophy. Mild disc height loss at L5-S1. Multiple opacities overlying the upper pelvis. IMPRESSION: 1. Stable degenerative changes of lumbar spine without acute osseous abnormality. Dictated by: Dictated on workstation # [id number]
--- NOTE | 2022-06-08 06:49 | Diagnostic Imaging Report ---
EXAMINATION: Pelvis radiograph EXAM DATE: 06/07/2022 11:06 PM COMPARISON: 09/18/2018 HISTORY: pelvic pain TECHNIQUE: 1 views FINDINGS: There is no acute fracture, dislocation, or destructive osseous process. Mild degenerative changes of both hips with joint space narrowing and small osteophytes. Multiple radiopacities overlying the upper pelvis. IMPRESSION: 1. No acute osseous abnormality. Dictated by: Dictated on workstation # [id number]
== END 2022-06-07 23:36 | disposition home or self-care (01) ==
LOC: EDUNIT# 21:43 → ER 21:46
DX: M54.41 Lumbago with sciatica, right side (principal); G62.9 Polyneuropathy, unspecified; E66.9 Obesity, unspecified; Z87.891 Personal history of nicotine dependence; Z68.42 Body mass index [BMI] 45.0-49.9, adult; Z79.899 Other long term (current) drug therapy
CPT/HCPCS: 72100; 72170; 73552

== ENCOUNTER → 2023-01-29 | Outpatient (CLI) | payer MEDICARE, MEDICAID ==
[~2023-01-29] MED LIST changes: +DICL20GE TP
== END ==
LOC: CARD 10:07
PROVIDERS: ATTEND Internal Medicine Cardiovascular Disease
DX: I10 Essential (primary) hypertension (principal); I25.10 Atherosclerotic heart disease of native coronary artery without angina pectoris
CPT/HCPCS: 93306

== ENCOUNTER → 2023-02-13 | Outpatient (CLI) | payer MEDICARE, MEDICAID ==
--- NOTE | 2023-02-13 18:25 | Diagnostic Imaging Report ---
INDICATION: Pain with no specific injury. EXAMINATION: Left shoulder, 02/13/2023. COMPARISON: 02/24/2021. FINDINGS: 3 views of the shoulder. There are chronic degenerative findings about the shoulder with narrowing and spurring at the acromioclavicular joint and chronic appearing loose bodies proximal to the humerus. No acute fracture or dislocation. IMPRESSION: Chronic findings with no acute osseous abnormality. Dictated by: Dictated on workstation # [id number]
== END ==
LOC: RAD 15:44
PROVIDERS: ATTEND Nurse Practitioner Family
DX: M25.512 Pain in left shoulder (principal)
CPT/HCPCS: 73030

== ENCOUNTER → 2023-02-26 | Outpatient (CLI) | payer MEDICARE, MEDICAID ==
[~2023-02-26] MED LIST changes: +CATHETER FLUSH 10 ML SYR IVP PRN; +REGADENOSON 0.4 MG/5 ML SYR (LEXISCAN) IV ONE; +meTOprolol 5 MG/5 ML (LOPRESSOR) VIAL IV ONE; +meTOprolol 5 MG/5 ML (LOPRESSOR) VIAL ONE
[2023-02-26 09:33] VITALS: BP 168/126
--- NOTE | 2023-02-26 15:39 | Cardiology Stress Test Report ---
Stress Test Report Date of Procedure/Referring: Date of Procedure: Feb 26, 2023 PCP No,Local Physician Admitting Physician Admitting Physician: Attending Physician: Leon Armstrong MD Indications: HTN Baseline Heart Rate: 89 Baseline Blood Pressure: Blood Pressure Systolic: 168 Blood Pressure Diastolic: 126 Baseline Vitals Vital Signs Date Time Temp Pulse Resp B/P (MAP) Pulse Ox O2 Delivery O2 Flow Rate FiO2 02/26/23 09:33 108 168/126 (140) Baseline EKG: Baseline EKG: NSR Summary After explaining the procedure to the patient, he signed a consent and then brought to the stress nuclear laboratory. Patient received 0.4 mg Lexiscan for stress test, ECG, heart rate and blood pressure were monitored continuously. Resting and stress dose of radio tracer were injected, imaging was acquired and reviewed in short axis, horizontal long axis and vertical long axis views. TID: 1.17 SSS: 6 SDS: 2 EF: 60 Patient tolerated Lexiscan well Diaphragmatic attenuation with fixed defect involving the apex and inferoapical segment, no significant ischemia or infarction noted on SPECT images Normal left ventricular size with normal contractility, ejection fraction 60% Copy Copies To 1: WAQAS HALEY MD, BASHAR J MD Feb 26, 2023 15:39
== END ==
LOC: CARD 08:30
PROVIDERS: ATTEND Internal Medicine Cardiovascular Disease
DX: I10 Essential (primary) hypertension (principal); I25.10 Atherosclerotic heart disease of native coronary artery without angina pectoris
CPT/HCPCS: 78452; 93017; A9502

== ENCOUNTER 2023-05-08 05:33 | Outpatient (CLI) | payer MEDICARE ==
[~2023-05-08] VITALS: Ht 172.7 cm; Wt 137.7 kg
[~2023-05-08 05:33] MED LIST changes: -CATHETER FLUSH 10 ML SYR IVP PRN; -REGADENOSON 0.4 MG/5 ML SYR (LEXISCAN) IV ONE; -meTOprolol 5 MG/5 ML (LOPRESSOR) VIAL IV ONE; -meTOprolol 5 MG/5 ML (LOPRESSOR) VIAL ONE
[2023-05-08] MEDS ORDERED: MIRA50TA PO (10:27)
[2023-05-08] MEDS ORDERED: TIZA-186 PO (10:27)
[2023-05-08] MEDS ORDERED: PREG75CA75 PO (10:27)
[2023-05-08] MEDS ORDERED: MECL-149 PO (10:27)
[2023-05-08] MEDS ORDERED: ATOR40TA70 PO (10:27)
[2023-05-08] MEDS ORDERED: DULO30CA49 PO (10:27)
[2023-05-08] MEDS ORDERED: DEXL60CA PO (10:27)
[2023-05-08] MEDS ORDERED: ASPI-999 PO (10:27)
[2023-05-08] MEDS ORDERED: METO50TA7 PO (10:27)
== END 2023-05-08 10:45 | disposition home or self-care (01) ==
LOC: PREOP 05:33 → EDSTATUS 08:30 → PREOP 10:45
PROVIDERS: ATTEND Surgery
DX: Z01.818 Encounter for other preprocedural examination (principal); E66.01 Morbid (severe) obesity due to excess calories

== ENCOUNTER 2023-05-15 10:15 | Inpatient (IN) | payer MEDICARE ==
--- NOTE | 2023-05-07 12:42 | HISTORY AND PHYSICAL ---
DATE OF SERVICE: 05/15/2023 DATE OF SERVICE: 05/15/2023 ATTENDING PRIMARY CARE PHYSICIAN: Kristen Tesfaye APRN, at the [facility]. The patient is a 67-year-old male with morbid obesity, who is interested in the laparoscopic gastric sleeve resection and meets the medical criteria for bariatric surgery. He reports that he has been overweight, the majority of his adult life and that he was at his heaviest approximately 15 years ago and since then has lost around 100 pounds. He reports that he has tried diets in the past such as, low-calorie, high-protein, low carbohydrate, Atkins, Weight Watchers, keto, low fat and a cabbage soup diet and reports that he was able to lose some weight with these diets. He reports that he has not tried any exercises for weight loss in the past. He reports that he has tried medications for weight loss, which have been under the supervision of physician; however, he is not for sure what these were. His medical comorbidities related to obesity include non-insulin dependent diabetes, hypertension, gastroesophageal reflux disease, hypercholesterolemia, osteoarthritis, asthma and obstructive sleep apnea. PAST MEDICAL HISTORY: Non-insulin dependent diabetes, hypertension, gastroesophageal reflux disease, hypercholesterolemia, degenerative joint disease, emphysema, asthma, COPD, obstructive sleep apnea. SURGICAL HISTORY: Laparoscopic cholecystectomy, 2008. Incisional hernia repair, 2010. ALLERGIES: NO KNOWN DRUG ALLERGIES. MEDICATIONS: Tylenol 500 mg 3 tablets at bedtime, Gemtesa 75 mg daily, fluticasone propionate inhalation, aspirin 81 mg daily, Ventolin HFA 108 mcg 2 puffs every 4 hours as needed, Celebrex 100 mg, duloxetine 30 mg daily, lisinopril 40 mg daily, Protonix 40 mg daily, trazodone 300 mg, metoprolol succinate ER 25 mg daily, metformin 1000 mg, amlodipine 10 mg daily, atorvastatin 40 mg daily, diclofenac sodium 75 mg, tizanidine 4 mg 1 tablet t.i.d. p.r.n. SOCIAL HISTORY: Previous for tobacco smoke at 3 packs per day, quit in 2004. Rare for alcohol. FAMILY HISTORY: Father, diabetes, hypertension, stroke. Mother, ovarian cancer, hypotension, myocardial infarction. VITAL SIGNS: Blood pressure is 159/87. Current weight is 316.9 pounds at 5 feet 9 inches with a body mass index of 46.8. REVIEW OF SYSTEMS: Well-nourished male in no acute distress. He is not experiencing any shortness of breath or difficulty breathing. No chest pain, palpitations or diaphoresis. No nausea, vomiting or abdominal pain. No diarrhea or constipation. No red blood per rectum. No dark tarry stools. No fever or chills. No recent inadvertent weight loss. All other review of systems negative. PHYSICAL EXAM: CHEST: Clear. Good breath sounds bilaterally. HEART: Regular, no murmurs. EXTREMITIES: No lower extremity edema. Negative Homans sign. HEENT: No scleral icterus. No cervical lymphadenopathy. ABDOMEN: Soft, nontender, nondistended. SKIN: Warm, dry and pink. NEUROLOGIC: Awake, alert and oriented x3. ASSESSMENT AND PLAN: A 68-year-old male with morbid obesity and medical comorbidities related to obesity including non-insulin dependent diabetes, hypertension, gastroesophageal reflux disease, hypercholesterolemia, osteoarthritis, asthma and obstructive sleep apnea. He is interested in the laparoscopic gastric sleeve resection and does meet the medical criteria for bariatric surgery. At this time, he has completed all the necessary tests and evaluations including physician monitored dieting, overnight oximetry study, nutrition and psychology consult as well as upper GI contrast study and clearance from his primary care physician and carpet installer. The risks and benefits of the procedure as well as the procedure and home care instructions were explained to the patient. It was also discussed with him in depth about proper diet as well as exercise preoperatively as well as postoperatively. He verbalized understanding of instructions and agrees to proceed as planned at this time. PLAN: We will proceed with scheduling him for a laparoscopic gastric sleeve resection. Job ID: [id number] DocumentID: [id number] Dictated Date: 05/07/2023 10:15:31 Newspaper Library Manager Date: 05/07/2023 12:39:00 Dictated By: LIZZIE TERRY
[2023-05-15] VITALS (9 sets, daily range): BP systolic 107–144; BP diastolic 65–81
[~2023-05-15 10:15] MED LIST changes: +ASPI-999 PO; +ATOR40TA70 PO; +DEXL60CA PO; +DULO30CA49 PO; +MECL-149 PO; +METO50TA7 PO; +MIRA50TA PO; +PREG75CA75 PO; +TIZA-186 PO
--- NOTE | 2023-05-15 11:13 | Progress Note-Pre Operative ---
Pre-Operative Progress Note Date of Available H&P: May 15, 2023 Date H&P Reviewed: May 15, 2023 Time H&P Reviewed: 11:10 History & Physical: No changes noted Pre-Operative Diagnosis: morbid obesity, DM, MARY MISAEL PENN MD May 15, 2023 11:13
--- NOTE | 2023-05-15 11:14 | Progress Note-Pre Operative ---
Pre-Operative Progress Note Date H&P Reviewed: May 15, 2023 Time H&P Reviewed: 11:13 History & Physical: H&P Reviewed, Patient Examed, No changes noted Pre-Operative Diagnosis: Morbid obesity, HTN, DM II, MARY, Hypercholesterolemia, GERD WAQAS BELCHER APRN May 15, 2023 11:14
[2023-05-15] MEDS ORDERED: ONDANSETRON 4 MG/2 ML (SDV) Z0FRAN IV PRN (11:15)
[2023-05-15] MEDS ORDERED: NS IV 1000 ML 1,000 ML IV SCH (11:15)
[2023-05-15] MEDS ORDERED: diphenhydrAMINE 50 MG/ML INJ (BENADRYL) IVP PRN (11:15)
[2023-05-15] MEDS ORDERED: fentaNYL PCA 1,000 MCG/100 ML 100 ML IV PRN (11:15)
[2023-05-15] MEDS ORDERED: NALOXONE 0.4 MG/ML 1 ML (NARCAN) VIAL IV PRN (11:15)
[2023-05-15] MEDS ORDERED: METOCLOPRAMIDE INJ 10 MG/2 ML (REGLAN) IV PRN (11:15)
--- OUTSIDE RECORDS SUMMARY | 2023-05-15 11:15 | XMS REPORT | Clinical Summary ---
Author Author [facility] Organization [facility] Address Unknown Phone Unavailable Care Team Providers Care Visitor Services Assistant Name Role Phone Ashleigh Benitez MD PCP Ric Chow DO [phone] Leon Armstrong MD [phone] Source Comments Some departments are not documenting in the electronic medical record. If you d o not see the information that you expected, contact Release of Information in [facility] Information Management department at [phone] for further assistan ce in locating additional records.[facility] Allergies No known active allergies Medications End Date Status Medication Sig Dispensed [...] mg of acetaminophen in 24 hours. Active milnacipran(+) (SAVELLA) Take 1 tablet 0 100 mg tablet by mouth twice daily. Active Problems Problem Noted Date Diagnosed Date MARY on CPAP 03/18/2019 Hypertension 03/18/2019 Hypercholesteremia 03/18/2019 Gastroesophageal reflux disease with esophagitis 07/2019 Hiatal hernia 03/18/2019 Type 2 diabetes mellitus without complication, withou t 03/18/2019 long-term current use of insulin Morbid obesity with BMI of 45.0-49.9, adult 03/15/20 Overview: Bariatric Surgery Checklist: Pre-Appoin tment Initial consult date: 03/18/19 Surgeon seen at initial consultation:Dr Naga Dixon New patient orientation attendance type : Online Smoking History: No Surgery Payment Type: Insurance Type of insurance: Government (Medicare , Medicaid, ) Number of Medically Supervised Diet Vis its Required: 6 Dietitian Evaluation: Patient seeing di etician at initial consultation with surgeon Psychological Evaluation: Psychology re bernie needed Surgeon Notes: Consults Placed by surgeon at initial c onsult: Candidate Eligibility Location: Additional notes: Surgical History Surgery Date Site/Laterality Comments HX CHOLECYSTECTOMY 11/10/2008 - from patient questi onnaire 11/09/2009 HERNIA REPAIR 11/10/2009 - from patient questi onnaire 11/09/2010 TONSIL AND ADENOIDECTOMY 11/10/2008 - 11/09/2009 Medical History Medical History Date Comments DM (diabetes mellitus) (HCC) from patient questionn aire Cardiomyopathy (HCC) Hypertension from patient questionnaire Insomnia Cancer (HCC) Emphysema with chronic bronchitis (HCC) Low back pain Tachycardia Supraventricular Claudication (HCC) Hyperlipidemia Aneurysm (HCC) COPD (chronic obstructive pulmonary disease) (HCC) AVELAR (dyspnea on exertion) Emphysema lung (HCC) Hemorrhoid History of IBS History of colon polyps Mixed hyperlipidemia MARY on CPAP MR (congenital mitral regurgitation) Excessive daytime sleepiness Esophagitis GERD without esophagitis Hyperplastic polyp of large intestine Gastropathy Social History Date Tobacco Use Types Packs/Day Years Used Quit: 2003 Smoking Tobacco: Former Cigarettes Smokeless Tobacco: Never Comments Alcohol Use Standard Drinks/Week 1-2 times a month Yes 0 (1 standard drink = 0.6 o z pure alcohol) Date Recorded Alcohol Use Answer Alcohol Use Yes Male: 9+ ounces (15+ Standard Drinks) per week 0 Threshold Female: 4.8+ ounces (8+ Standard Drinks) per week No t on file Threshold Date Recorded Sex and Gender Information Value Sex Assigned at Not on file Gender Identity Not on file Sexual Orientation Not on file Obstetrics History Last Filed Vital Signs Reading Time Taken Comments Vital Sign 122/85 03/18/2019 12:51 PM CDT Blood Pressure 103 03/18/2019 12:51 PM CDT Pulse - - Temperature 18 03/18/2019 12:51 PM CDT Respiratory Rate 95% 03/18/2019 12:51 PM CDT Oxygen Saturation - - Inhaled Oxygen Concentration 145.6 kg (320 lb 14.4 oz) 03/18/2019 1:35 PM CDT Weight 175.3 cm (5' 9") 03/18/2019 1:35 PM CDT Height 47.39 03/18/2019 1:35 PM CDT Body Mass Index Plan of Treatment Health Maintenance Due Date Last Done Comments MEDICARE ANNUAL WELLNESS 1955 VISIT COVID-19 VACCINE (#1) 1955 HEPATITIS C SCREENING 1973 PHYSICAL (COMPREHENSIVE) 1973 EXAM COLORECTAL CANCER 2000 SCREENING SHINGLES RECOMBINANT 2005 VACCINE (1 of 2) ABDOMINAL AORTIC ANEURYSM 2020 SCREENING PNEUMOCOCCAL VACCINE 65+ 2020 YRS (1 - PCV) ADVANCED CARE PLANNING 11/10/2022 DISCUSSION AND DOCUMENTATION DEPRESSION SCREENING 11/10/2022 INFLUENZA VACCINE (#1) 2023 DTAP/TDAP VACCINES (2 - 09/18/2028 09/18/2018 Td or Tdap) Results Not on filefrom Last 3 Months Insurance Type Payer Benefit Subscriber ID Effective Phone Address Plan / Dates Group Medicare MEDICARE MEDICARE [id number] 2018-P [phone] [address] [place] [address] Care Teams Start Date End Date Visitor Services Assistant Relationship Specialty 03/16/19 Ashleigh Benitez MD PCP - General Family [address] [place] [address] 03/18/19 Ric Chow DO CCP - Pulmonary Continuity of Disease [facility] Care Provider [place] [address] [place] [address] 03/18/19 Leon Armstrong MD CCP - Cardiovascul Continuity of ar Disease [address] [place] [place] [address]
--- NOTE | 2023-05-15 11:21 | Discharge Inst-Surgical ---
D/C Lap Instructions-FILI Follow Up Appt in 2 weeks Activity as tolerated No driving for 24 hours No driving while on pain medications Incentive Spirometry use every 2 hours while awake Phase 1 clear liquid diet next 2 weeks. Symptoms to Report: Fever over 101 degree F, Nausea/Vomiting Infection Signs and Symptoms to report: Increased redness, Foul odor of wound, Increased drainage Bathing instructions: May shower Operative Area Clean/Dry; Keep incision clean/dry If any problems/questions: Contact your physician or go to Emergency Room MISAEL PENN MD May 15, 2023 11:21
[2023-05-15] MEDS: LACTATED RINGERS 1,000 ML IV PRN ×2 (11:57→13:35)
[2023-05-15] MEDS ORDERED: LIDOCAINE PF 2% 5 ML (XYLOCAINE) VIAL ONE (12:00)
[2023-05-15] MEDS ORDERED: ceFAZolin INJECTION 2,000 MG in NS (IVPB) 50 ML IV ONE (12:00)
[2023-05-15] MEDS ORDERED: proPOfol 200 MG/20 ML (DIPRIVAN) VIAL IV ONE (12:00)
[2023-05-15] MEDS ORDERED: fentaNYL INJ 100 MCG/2 ML AMP ONE (12:00)
[2023-05-15] MEDS ORDERED: FAMOTIDINE 20MG/2ML IV (PEPCID) IV ONE (12:00)
[2023-05-15] MEDS ORDERED: ROCURONIUM 50 MG/5 ML (ZEMURON) VIAL IV ONE (12:00)
[2023-05-15] MEDS ORDERED: ONDANSETRON 4 MG/2 ML (SDV) Z0FRAN ONE ×2 (12:00→12:01)
[2023-05-15] MEDS ORDERED: ONDANSETRON 4 MG/2 ML (SDV) Z0FRAN IV ONE (12:00)
[2023-05-15] MEDS ORDERED: ONDANSETRON 4 MG/2 ML (SDV) Z0FRAN IVP SCH (12:00)
[2023-05-15] MEDS ORDERED: GLYCOPYRROLATE 0.2 MG/ML (ROBINUL) 2 ML VIAL ONE (12:00)
[2023-05-15] MEDS ORDERED: NEOSTIGMINE (BLOXIVERZ ) 1 MG/1ML 10 ML VIAL ONE (12:00)
[2023-05-15] MEDS ORDERED: ceFAZolin INJECTION 2,000 MG ONE (12:01)
[2023-05-15] MEDS ORDERED: FAMOTIDINE 20MG/2ML IV (PEPCID) ONE (12:01)
[2023-05-15] MEDS ORDERED: NS (IVPB) 50 ML ONE (12:01)
[2023-05-15] MEDS ORDERED: LIDOCAINE/EPI 1%-1:100,000 (XYLOCAINE) 20ML ONE (12:19)
[2023-05-15] MEDS ORDERED: MIDAZOLAM 2 MG/2 ML (VERSED) VIAL ONE (12:47)
[2023-05-15] MEDS ORDERED: PHENYLEPHRINE 100 MCG/ML 10 ML (ANESTHESIA) SYR ONE (13:05)
[2023-05-15] MEDS ORDERED: LIDOCAINE/EPI 1%-1:100,000 (XYLOCAINE) 20ML INJ ONE (13:33)
--- NOTE | 2023-05-15 14:25 | Progress Note-Post Operative ---
Post-Operative Progess Note Surgeon (s)/Emergency Dept Tech (s) Surgeon MISAEL PENN MD Emergency Dept Tech: simba guo HARDWARE TECHNICIAN Pre-Operative Diagnosis Morbid obesity, HTN, DM II, MARY, Hypercholesterolemia, GERD Post-Operative Diagnosis same Procedure & Operative Findings Date of Procedure 05/15/23 Procedure Performed/Findings laparoscopic gastric sleeve resection. Anesthesia Type get Estimated Blood Loss Estimated blood loss (mL): minimal Specimens/Packing Specimens Removed stomach MISAEL PENN MD May 15, 2023 14:25
[2023-05-15] MEDS ORDERED: SEVOFLURANE (ULTANE) 15 ML INHAL SOLN ONE (14:31)
--- NOTE | 2023-05-15 14:48 | Anesthesia-General Post-Op ---
General Patient Condition Mental Status/LOC: Same as Preop Cardiovascular: Satisfactory Nausea/Vomiting: Absent Respiratory: Satisfactory Pain: Controlled Complications: Absent Post Op Complications Complications None Follow Up Care/Instructions Patient Instructions None needed. Anesthesia/Patient Condition Patient Condition Patient is doing well, no complaints, stable vital signs, no apparent adverse anesthesia problems. No complications reported per nursing. CHIKA LÓPEZ CRNA May 15, 2023 14:48
[2023-05-15] MEDS ORDERED: morphine INJ 10 MG/ML 1ML (SYR OR VIAL) IVP ONE (15:00)
[2023-05-15] MEDS ORDERED: HYDROmorphone 2 MG/ML VIAL (DILAUDID) IV ONE (15:00)
[2023-05-15] MEDS ORDERED: ONDANSETRON 4 MG/2 ML (SDV) Z0FRAN IVP PRN (15:00)
--- NOTE | 2023-05-15 15:10 | OPERATIVE REPORT ---
DATE OF SERVICE: 05/15/2023 ATTENDING MILK TREATER: Kristen Tesfaye APRN PREOPERATIVE DIAGNOSES: Morbid obesity, diabetes, hypertension, sleep apnea. POSTOPERATIVE DIAGNOSES: Morbid obesity, diabetes, hypertension, sleep apnea. PROCEDURE: Laparoscopic gastric sleeve resection. SURGEON: Misael Penn MD SHIPPER: Stevo Morgan APRN ANESTHESIA: General endotracheal. ESTIMATED BLOOD LOSS: Minimal. FINDINGS: Surgically absent gallbladder, mild hepatomegaly. DISPOSITION: The patient tolerated the procedure well. INDICATIONS: The patient is a 68-year-old male with history of morbid obesity and in our surgical weight loss program for the gastric sleeve resection and meets the medical criteria for bariatric surgery. He has been overweight, the majority of his adult life; however, he was at his heaviest approximately 15 years ago and approximately 400 pounds. He reports he has been working tirelessly to lose weight and has been successful to some degree however, has been stagnant around his current range for a good amount of time. He has reported diet programs including low-calorie, high-protein, low carbohydrate diets, Atkins diet, Weight Watchers as well as calorie counting. He again has been successful to a certain degree with some weight loss; however, he would always had plateaus and unable to lose more weight. He has not tried any exercise regimens in the past; however, he is somewhat limited due to severe degenerative joint disease. He has been under physician monitored dieting in the past and again has been limited in terms of weight loss. His medical comorbidities related to his obesity include diabetes, hypertension, gastroesophageal reflux disease, hypercholesterolemia, osteoarthritis, asthma, obstructive sleep apnea, COPD. DESCRIPTION OF PROCEDURE: The patient was brought to the operating room, laid supine on the table. After adequate IV pain and sedative medications and general endotracheal intubation, the abdomen was prepped and draped in standard surgical fashion. A 0.5% Marcaine with epinephrine was then used to anesthetize the overlying skin in the left upper abdominal quadrant and a transverse skin incision made using a #15 blade. An 0 silk suture was applied to the medial aspect of the incision for retraction and the Veress needle inserted with a low opening pressure of 0 mmHg and the abdomen was then insufflated to 15 mmHg pressure. The Veress needle removed and a 5 mm trocar placed followed by a 5 mm 45-degree angle laparoscope visualizing the peritoneal cavity. A 4-quadrant abdominal exploration was performed. There was some hepatomegaly and a surgically absent gallbladder. No hiatal hernia identified. Under direct visualization, we then proceeded to place a midabdominal left of midline 10 mm port after the skin and peritoneal lining were anesthetized using 0.5% Marcaine with epinephrine and a transverse skin incision made using a #15 blade. In a similar manner, a midabdominal right of midline 15 mm port was placed followed by a right upper abdominal quadrant 5 mm port. The epigastric region was then anesthetized and a transverse skin incision made using the trocar to a 5 mm port and through this opening, a medium-sized Tennille liver retractor was placed and the left lobe of the liver retracted anteriorly and superiorly. The patient was then placed in steep reverse Trendelenburg position. We then measured 2 cm from the pylorus along the greater curvature and marked this area with a marking pen. We then proceeded with opening the gastrocolic ligament next to the stomach, entering the lesser sac using the Sonicision. We then proceeded with inferior dissection until we were approximately 2 cm below our marking with a Sonicision with visualization of good hemostasis. We then proceeded cephalad taking down the short gastric vessels as well as the angle of His, connective tissue fibers and dissected medially until the left brianne of the diaphragm was identified. Good hemostasis was observed. A 38-Pakistani ViSiGi was then placed in the stomach and directed into the pylorus and placed on suction. Using this as a staple line guide, we then proceeded with our gastric sleeve resection starting with a 45 mm polyglycolic acid black load 2 cm below our marking. We then proceeded with two 60 mm black loads followed by two 60 mm purple loads leaving 2 cm next to the gastroesophageal junction and completing our gastric sleeve resection. The staple line corners were then clipped with 5 mm clips and a leak test was performed to 35 mmHg pressure air with no leak identified. Fibrin glue was then placed onto the staple line and omentum placed onto the staple line as well. The liver retractor was then removed. The stomach was removed through the 15 mm port site and the fascia and peritoneum to the 15 and 10 mm port sites were then closed under direct visualization using a Hamzah-Shani device and 0 Vicryl suture. The abdomen was then desufflated and the remaining ports were removed. All skin incisions were closed using 4-0 Monocryl running subcuticular sutures. Wounds were then cleaned and covered with Dermabond. The patient tolerated the procedure well. We will admit him to the floor and proceed with DVT prophylaxis with early ambulation, calf SCDs as well as Lovenox injections. He may have ice chips today. Tomorrow morning, we will start him on a phase 1 clear liquid diet, 30 mL every half hour and once that he is tolerating 60 mL every half hour, has adequate pain control with oral pain medication and is ambulating well, we will discharge her home where he will be instructed to continue a phase 1 clear liquid diet for the next 2 weeks. He also be instructed to do no heavy lifting or exertion for the next 2 weeks as well. Job ID: [id number] DocumentID: [id number] Dictated Date: 05/15/2023 14:19:01 Production Consultant Date: 05/15/2023 15:08:00 Dictated By: MISAEL PENN MD
[2023-05-15] MEDS: 1/2 NS W/KCL 20 MEQ/L 1,000 ML IV SCH ×2 (16:23→17:21)
[2023-05-15] MEDS: metroNIDAZOLE 500MG/100ML IVPB 100 ML IV SCH (16:42)
[2023-05-15] MEDS: METOCLOPRAMIDE INJ 10 MG/2 ML (REGLAN) IVP SCH ×2 (16:42→20:24)
[2023-05-15] MEDS: LACTATED RINGERS 1,000 ML IV SCH ×2 (17:22→22:01)
[2023-05-15] MEDS: RT-ALBUTEROL SULF 2.5 MG/3 ML PRE-MIX VIAL INH SCH ×2 (17:23→22:11)
[2023-05-15] MEDS: ONDANSETRON 4 MG/2 ML (SDV) Z0FRAN IVP SCH (17:53)
[2023-05-15] MEDS: ENOXAPARIN 40 MG/0.4 ML (LOVENOX) SYR SC SCH (20:23)
[2023-05-15] MEDS: ceFAZolin INJECTION 2,000 MG in NS (IVPB) 50 ML IV SCH (20:23)
[2023-05-15] MEDS ORDERED: fentaNYL INJ 100 MCG/2 ML AMP IVP PRN (22:00)
[2023-05-16] MEDS: 1/2 NS W/KCL 20 MEQ/L 1,000 ML IV SCH ×2 (00:33→09:50)
[2023-05-16] MEDS: ONDANSETRON 4 MG/2 ML (SDV) Z0FRAN IVP SCH ×2 (00:33→05:59)
[2023-05-16] MEDS: metroNIDAZOLE 500MG/100ML IVPB 100 ML IV SCH ×2 (00:33→08:33)
[2023-05-16] MEDS: ceFAZolin INJECTION 2,000 MG in NS (IVPB) 50 ML IV SCH ×2 (03:58→11:54)
[2023-05-16] MEDS: METOCLOPRAMIDE INJ 10 MG/2 ML (REGLAN) IVP SCH ×2 (03:58→09:50)
[2023-05-16 04:00] VITALS: BP 130/75
[2023-05-16 06:08] LABS: HEMATOCRIT 30 % (40-54); MEAN CORPUSCULAR HEMOGLOBIN 19 pg (25-34); MEAN CORPUSCULAR HGB CONC 27 g/dL (32-36); MEAN CORPUSCULAR VOLUME 70 fL (80-99); PLATELET COUNT 420 10^3/uL (130-400); WHITE BLOOD COUNT 10.3 10^3/uL (4.3-11.0)
[2023-05-16 06:29] LABS: POTASSIUM 3.3 MMOL/L (3.6-5.0)
[2023-05-16 06:34] LABS: CREATININE SERUM 0.9 MG/DL (0.60-1.30)
[2023-05-16] MEDS: RT-ALBUTEROL SULF 2.5 MG/3 ML PRE-MIX VIAL INH SCH (06:39)
[2023-05-16 07:25] VITALS: BP 137/79
[2023-05-16] MEDS: LACTATED RINGERS 1,000 ML IV SCH (08:15)
[2023-05-16] MEDS ORDERED: PANTOPRAZOLE 40 MG (PROTONIX) TAB PO SCH (09:00)
[2023-05-16] MEDS ORDERED: PANTOPRAZOLE 40 MG (PROTONIX) VIAL IV SCH (09:00)
[2023-05-16] MEDS: ENOXAPARIN 40 MG/0.4 ML (LOVENOX) SYR SC SCH (09:50)
[2023-05-16] MEDS ORDERED: HYDROcodone/APAP 7.5MG-325 MG/15 ML (LORTAB) UDC PO PRN (10:30)
[2023-05-16] MEDS ORDERED: ONDANSETRON 4 MG/2 ML (SDV) Z0FRAN IVP PRN (11:15)
[2023-05-16] MEDS ORDERED: METOCLOPRAMIDE INJ 10 MG/2 ML (REGLAN) IVP PRN (11:15)
--- NOTE | 2023-05-16 11:42 | Progress Note ---
Subjective Date Seen by a Provider: May 16, 2023 Time Seen by a Provider: 11:00 Subjective/Events-last exam doing well. pain controlled and sitting upright. tolerating clear liquids. able to ambulate. Objective Exam Vital Signs Date Time Temp Pulse Resp B/P (MAP) Pulse Ox O2 Delivery O2 Flow Rate FiO2 05/16/23 09:00 91 Nasal Cannula 2.00 05/16/23 07:25 37.0 83 16 137/79 (98) 91 Nasal Cannula 2.00 05/16/23 06:39 95 Nasal Cannula 2.00 05/16/23 04:00 36.6 86 18 130/75 (93) 96 Nasal Cannula 2.00 2.00 05/15/23 23:45 86 18 128/73 (91) 96 Nasal Cannula 2.00 05/15/23 22:28 85 Nasal Cannula 2.00 05/15/23 20:00 93 Nasal Cannula 2.00 05/15/23 19:30 36.6 85 20 137/73 (94) 93 Nasal Cannula 2.00 05/15/23 15:47 36.4 70 18 126/65 (85) 90 Nasal Cannula 2.00 05/15/23 15:13 Nasal Cannula 2.00 05/15/23 15:10 36.3 16 125/79 (94) 92 Nasal Cannula 2.00 05/15/23 15:00 15 144/81 (102) 96 OxyMask 2.00 05/15/23 14:55 OxyMask 4.00 05/15/23 14:50 15 126/74 (91) 95 OxyMask 4.00 05/15/23 14:40 OxyMask 4.00 05/15/23 14:40 14 127/79 (95) 96 OxyMask 4.00 05/15/23 14:30 14 110/70 (83) 96 OxyMask 6.00 05/15/23 14:25 36.5 15 107/70 (82) 100 OxyMask 8.00 05/15/23 14:25 OxyMask 8.00 I & O 05/16/23 07:00 Intake Total 2170 ml Output Total 1500 ml Balance 670 ml Capillary Refill : General Appearance: No Apparent Distress HEENT: PERRL/EOMI Neck: Full Range of Motion Respiratory: Decreased Breath Sounds, Rhonci, Wheezing Cardiovascular: Regular Rate, Rhythm Gastrointestinal: normal bowel sounds, soft, tenderness, other (inc clean/dry) Extremity: Normal Capillary Refill Neurologic/Psychiatric: Alert, Oriented x3 Skin: Normal Color Lymphatic: No Adenopathy Results Lab Laboratory Tests 05/15/23 11:52: Glucometer 102 05/15/23 19:48: Glucometer 114H 05/16/23 05:57: White Blood Count 10.3, Red Blood Count 4.31, Hemoglobin 8.0L, Hematocrit 30L, Mean Corpuscular Volume 70L, Mean Corpuscular Hemoglobin 19L, Mean Corpuscular Hemoglobin Concent 27L, Red Cell Distribution Width 19.4H, Platelet Count 420H, Mean Platelet Volume 9.0, Sodium Level 138, Potassium Level 3.3L, Chloride Level 97L, Carbon Dioxide Level 25, Anion Gap 16H, Blood Urea Nitrogen 5L, Creatinine 0.90, Estimat Glomerular Filtration Rate 93, BUN/Creatinine Ratio 6, Glucose Level 114H, Calcium Level 8.0L Microbiology 05/15/23 MRSA Screen - Final, Complete MRSA not isolated Assessment/Plan Assessment/Plan Assess & Plan/Chief Complaint s/p laparoscopic gastric sleeve resection. increase ambulation. continue phase 1 clear liquids for next 2 weeks. patient has all prescriptions filled at home(lortab, protonix, zofran). MISAEL PENN MD May 16, 2023 11:42
[2023-05-16 11:52] VITALS: BP 141/70
== END 2023-05-16 15:00 | disposition home or self-care (01) | DRG 621 ==
LOC: EDSTATUS 10:15 → 4TH 10:59 → SURG 11:00 → 4TH 15:15
PROVIDERS: ADMIT Surgery; ATTEND Surgery
PROC: 0DB64Z3 Excision of Stomach, Percutaneous Endoscopic Approach, Vertical (ICD-10-PCS; principal; 2023-05-15 12:47)
DX: E66.01 Morbid (severe) obesity due to excess calories (principal); E11.9 Type 2 diabetes mellitus without complications; I10 Essential (primary) hypertension; K21.9 Gastro-esophageal reflux disease without esophagitis; E78.00 Pure hypercholesterolemia, unspecified; J43.9 Emphysema, unspecified; G47.33 Obstructive sleep apnea (adult) (pediatric); M19.90 Unspecified osteoarthritis, unspecified site; Z68.42 Body mass index [BMI] 45.0-49.9, adult; Z79.84 Long term (current) use of oral hypoglycemic drugs; Z87.891 Personal history of nicotine dependence; Z79.82 Long term (current) use of aspirin; Z79.899 Other long term (current) drug therapy
CPT/HCPCS: 36415; 80048; 82947; 85027; 87081; 88307; 94640; 94664; 94760; 94761

== ENCOUNTER 2023-06-30 10:17 | Observation (INO) | payer MEDICARE ==
[~2023-06-30] VITALS: Ht 172.7 cm; Wt 129.0 kg
[2023-06-30] MEDS ORDERED: NS IV 1000 ML 1,000 ML IV SCH ×2 (11:15→12:45)
--- NOTE | 2023-06-30 11:18 | ED Neurological Problem ---
General Chief Complaint: Trauma-Non Activation Stated Complaint: FALL | DIZZY | WEAK Nursing Triage Note: PT AMB TO RM 5 WITH C/O FALL AT 0745 THIS MORNING AND DIZZINESS. PT DENIES LOC OR HITTING HEAD Source: patient Exam Limitations: no limitations History of Present Illness Date Seen by Provider: Jun 30, 2023 Time Seen by Provider: 10:58 Initial Comments 68-year-old male presents to the ER with complaint of dizziness and weakness. He states that this morning around 7 AM he became weak, his left leg gave out and he fell. Denies injury during the fall. Denies hitting his head. Denies loss of consciousness. States that it kind of felt like his vision started going dark. Denies the room spinning. Reports that he still feels weak at this time. Denies fevers, headache, chest pain, shortness of air, abdominal pain, nausea, vomiting, diarrhea. He has lost 50 pounds since his gastric sleeve resection on May 15. Allergies and Home Medications Allergies Coded Allergies: No Known Drug Allergies (Unverified , 05/01/17) Patient Home Medication List Home Medication List Reviewed: Yes Acetaminophen (Tylenol Extra Strength) 500 Mg Tablet, 1,500 MG PO 0800,2100, (Reported) Entered as Reported by: DOMINGO RIVAS on 01/26/19 0915 Albuterol Sulfate (Ventolin Hfa) 18 Gm Hfa.aer.ad, 1-2 PUFF IH QID PRN for SHORTNESS OF BREATH, (Reported) Entered as Reported by: REJI CABEZAS on 04/23/16 1217 Amlodipine Besylate (Amlodipine Besylate) 10 Mg Tablet, 10 MG PO DAILY, (Reported) Entered as Reported by: DOMINGO RIVAS on 01/26/19 0915 Aspirin (Aspirin) 81 Mg Tab.chew, 81 MG PO DAILY, (Reported) Entered as Reported by: Sonya Jacobson on 05/08/23 1027 Atorvastatin Calcium (Atorvastatin Calcium) 40 Mg Tablet, 40 MG PO HS, (Reported) Entered as Reported by: Sonya Jacobson on 05/08/23 1027 Dexlansoprazole (Dexilant) 60 Mg Osvaldo.bp, 60 MG PO DAILY, (Reported) Entered as Reported by: Sonya Jacobson on 05/08/23 1027 Diclofenac Sodium (Diclofenac Sodium) 75 Mg Tablet.dr, 75 MG PO BID, (Reported) Entered as Reported by: DOMINGO RIVAS on 01/26/19914 Diclofenac Sodium (Voltaren Arthritis Pain) 1 % Gel..gram., 20 GM TP QID Prescribed by: SHARIFA DC on 06/07/22 2320 Duloxetine HCl (Duloxetine HCl) 30 Mg Capsule.dr, 30 MG PO DAILY, (Reported) Entered as Reported by: Sonya aJcobson on 05/08/23 1027 Meclizine HCl (Meclizine HCl) 25 Mg Tablet, 25 MG PO DAILY, (Reported) Entered as Reported by: Sonya Jacobson on 05/08/23 1027 Metformin HCl (Metformin HCl) 1,000 Mg Tablet, 1,000 MG PO BID, (Reported) Entered as Reported by: DOMINGO RIVAS on 01/26/19914 Metoprolol Succinate (Metoprolol Succinate) 50 Mg Tab.er.24h, 50 MG PO DAILY, (Reported) Entered as Reported by: Sonya Jacobson on 05/08/23 1027 Mirabegron (Myrbetriq) 50 Mg Tab.er.24h, 50 MG PO DAILY, (Reported) Entered as Reported by: Sonya Jacobson on 05/08/23 1027 Pantoprazole Sodium (Protonix) 40 Mg Tablet.dr, 40 MG PO DAILY, (Reported) Entered as Reported by: DOMINGO RIVAS on 01/26/19914 Pravastatin Sodium (Pravastatin Sodium) 40 Mg Tablet, 40 MG PO DAILY, (Reported) Entered as Reported by: KEO UGALDE on 05/01/17 1522 Pregabalin (Pregabalin) 75 Mg Capsule, 150 MG PO BID, (Reported) Entered as Reported by: Sonya Jacobson on 05/08/23 1027 Tizanidine HCl (Tizanidine HCl) 4 Mg Tablet, 4 MG PO TID, (Reported) Entered as Reported by: Sonya Jacobson on 05/08/23 1027 Trazodone HCl (Trazodone HCl) 150 Mg Tablet, 150 MG PO HS, (Reported) Entered as Reported by: DOMINGO RIVAS on 01/26/19914 Review of Systems Review of Systems Constitutional: see HPI Past Wkawmmd-Rzwpwv-Udxrwd Hx Patient Social History Tobacco Use?: No Smoking Status: Former Smoker Substance use?: No Alcohol Use?: No Pt feels they are or have been: No Immunizations Up To Date Tetanus Booster (TDap): Unknown First/Initial COVID19 Vaccinat: DENIES Second COVID19 Vaccination Jefry: DENIES Third COVID19 Vaccination Date: DENIES Seasonal Allergies Seasonal Allergies: No Past Medical History Surgery/Hospitalization HX: COPD, HTN, DM, EMPHYSEMA, HLD, VERTIGO, ASTHMA GASTRIC SLEEVE, MICHAEL, HERNIA Surgeries: Yes (HERNIA REPAIR; EGD/COLONOSCOPY WITH POLYPECTOMY 2016; ) Abdominal, Gallbladder, Tonsillectomy Respiratory: Yes Asthma, Sleep Apnea, COPD, Emphysema Currently Using CPAP: Yes Currently Using BIPAP: No Cardiac: Yes (TACHYCARDIA) High Cholesterol, Hypertension Neurological: Yes Neuropathy Reproductive Disorders: No Sexually Transmitted Disease: No HIV/AIDS: No Genitourinary: No Gastrointestinal: Yes Abdominal Hernia, Gastroesophageal Reflux, Diverticulosis, Hepatitis, Polyps, Hiatal Hernia, Gall Bladder Disease, Irritable Bowel Musculoskeletal: Yes (RIGHT SCIATICA--WALKS WITH CANE) Degenerate Disk Disease, Arthritis, Chronic Back Pain, Spasms Endocrine: Yes (OBESITY) Diabetes, Non-Insulin dep HEENT: Yes Tinnitis Loss of Vision: Bilateral Hearing Impairment: Hearing Aide Right Cancer: No Psychosocial: No Integumentary: No Blood Disorders: No Adverse Reaction/Blood Tranf: No Family Medical History Heart Disease, Cancer, Diabetes, Hypertension Physical Exam Vital Signs Vital Signs - First Documented 06/30/23 10:32 Temp 35.8 Pulse 65 Resp 17 B/P (MAP) 112/71 (85) Pulse Ox 93 O2 Delivery Room Air Capillary Refill : Height, Weight, BMI Height: 5'9.00" Weight: 240lbs. 4.0oz. 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 as tested, alert, normal mood/affect Crainal Nerves: normal hearing, normal speech, PERRL Motor/Sensory: no motor deficit, no sensory deficit Skin: normal color, warm/dry Progress/Results/Core Measures Results/Orders Lab Results Laboratory Tests Test 06/30/23 11:20 06/30/23 11:34 Range/Units White Blood Count 8.1 4.3-11.0 10^3/uL Red Blood Count 4.56 4.30-5.52 10^6/uL Hemoglobin 9.1 L 13.3-17.7 g/dL Hematocrit 33 L 40-54 % Mean Corpuscular Volume 72 L 80-99 fL Mean Corpuscular Hemoglobin 20 L 25-34 pg Mean Corpuscular Hemoglobin Concent 28 L 32-36 g/dL Red Cell Distribution Width 20.8 H 10.0-14.5 % Platelet Count 322 130-400 10^3/uL Mean Platelet Volume 8.7 L 9.0-12.2 fL Immature Granulocyte % (Auto) 0 % Neutrophils (%) (Auto) 68 42-75 % Lymphocytes (%) (Auto) 21 12-44 % Monocytes (%) (Auto) 9 0-12 % Eosinophils (%) (Auto) 3 0-10 % Basophils (%) (Auto) 0 0-10 % Neutrophils # (Auto) 5.5 1.8-7.8 10^3/uL Lymphocytes # (Auto) 1.7 1.0-4.0 10^3/uL Monocytes # (Auto) 0.7 0.0-1.0 10^3/uL Eosinophils # (Auto) 0.2 0.0-0.3 10^3/uL Basophils # (Auto) 0.0 0.0-0.1 10^3/uL Immature Granulocyte # (Auto) 0.0 0.0-0.1 10^3/uL Sodium Level 140 135-145 MMOL/L Potassium Level 3.9 3.6-5.0 MMOL/L Chloride Level 103 98-107 MMOL/L Carbon Dioxide Level 27 21-32 MMOL/L Anion Gap 10 5-14 MMOL/L Blood Urea Nitrogen 18 7-18 MG/DL Creatinine 1.84 H 0.60-1.30 MG/DL Estimat Glomerular Filtration Rate 39 BUN/Creatinine Ratio 10 Glucose Level 113 H 70-105 MG/DL Calcium Level 8.6 8.5-10.1 MG/DL Corrected Calcium 8.8 8.5-10.1 MG/DL Magnesium Level 1.5 L 1.6-2.4 MG/DL Total Bilirubin 0.6 0.1-1.0 MG/DL Aspartate Amino Transf (AST/SGOT) 23 5-34 U/L Alanine Aminotransferase (ALT/SGPT) 16 0-55 U/L Alkaline Phosphatase 61 40-136 U/L Total Protein 6.5 6.4-8.2 GM/DL Albumin 3.8 3.2-4.5 GM/DL Glucometer 109 70-110 MG/DL My Orders Orders - TIAN SCHULTZ APRN Cbc With Automated Diff (06/30/23 11:10) Magnesium (06/30/23 11:10) Ekg Tracing (06/30/23 11:10) Comprehensive Metabolic Panel (06/30/23 11:10) Monitor-Rhythm Ecg Trace Only (06/30/23 11:10) Ed Iv/Invasive Line Start (06/30/23 11:10) Accucheck Stat ONCE (06/30/23 11:10) Ns Iv 1000 Ml (Sodium Chloride 0.9%) (06/30/23 11:15) Ns Iv 1000 Ml (Sodium Chloride 0.9%) (06/30/23 12:45) Magnesium 2 Gm/50 Ml Ivpb (Magnesium 2 G (06/30/23 14:15) Ed Admission (Communication) (06/30/23 14:12) Medications Given in ED Current Medications Medications Dose Ordered Sig/Montez Route Start Time Stop Time Status Last Admin Dose Admin Magnesium Sulfate 50 ml @ 50 mls/hr ONCE ONCE IV 06/30/23 14:15 06/30/23 15:14 06/30/23 14:22 50 MLS/HR Vital Signs/I&O 06/30/23 06/30/23 06/30/23 10:32 14:25 14:38 Temp 35.8 35.8 Pulse 65 55 62 63 70 Resp 17 17 B/P (MAP) 112/71 (85) 117/61 (79) 110/71 116/83 (94) 110/71 (84) Pulse Ox 93 96 O2 Delivery Room Air Room Air Blood Pressure Mean: 85 Progress Progress Note : Progress Note Patient seen and evaluated, resting comfortably in bed, no acute distress. Pressure found to be low. Based on exam and symptoms, work-up initiated included CBC, CMP, magnesium, EKG. IV fluids ordered. 1241 Labs reviewed. CBC shows anemia, this appears to be chronic. CMP shows elevated creatinine 1.84, decreased GFR 39, BUN is 18. Labs drawn on 05/16/2023 show creatinine of 0.90, GFR of 93 and BUN of 5. Magnesium slightly low 1.5. Second liter of IV fluids ordered. First liter is infusion slowly. 1406 blood pressure has mostly remained in the 90s systolic. Last blood press ure was slightly better at 106 systolic after the 2 L of fluid. I called and spoke with Dr. Elmore, hospitalist, regarding admission for acute kidney injury and dehydration. She agrees to admit patient. Plan of care discussed with patient. Patient agreeable to admission. Patient reporting leg cramps at this time. IV magnesium ordered. Initial ECG Impression Date: Jun 30, 2023 Initial ECG Impression Time: 11:30 Initial ECG Rate: 55 Initial ECG Rhythm: S.Yaw Initial ECG Intervals: Normal Initial ECG Impression: Normal Initial ECG Comparisson: Unchanged Departure Communication (Admissions) Time/Spoke to Admitting Phy: 14:07 Dr. Elmore, hospitalist, see progress note. Impression Primary Impression: MAURICIO (acute kidney injury) Additional Impressions: Dehydration Hypotension Qualified Codes: I95.89 - Other hypotension; E86.1 - Hypovolemia Dizziness Weakness Disposition: ADMITTED INPATIENT Condition: Stable Admissions Decision to Admit Reason: Admit from ER (General) Decision to Admit/Date: Jun 30, 2023 Time/Decision to Admit Time: 14:07 Departure-Patient Inst. Referrals: WAQAS HLAEY MD (PCP/Family) Primary Care Physician TIAN SCHULTZ APRN Jun 30, 2023 11:18
[2023-06-30 11:28] LABS: BASOPHILS % (AUTO) 0 % (0-10); EOSINOPHILS # (AUTO) 0.2 10^3/uL (0.0-0.3); EOSINOPHILS % (AUTO) 3 % (0-10); HEMATOCRIT 33 % (40-54); HEMOGLOBIN 9.1 g/dL (13.3-17.7); LYMPHOCYTES # (AUTO) 1.7 10^3/uL (1.0-4.0); LYMPHOCYTES % (AUTO) 21 % (12-44); MEAN CORPUSCULAR HEMOGLOBIN 20 pg (25-34); MEAN CORPUSCULAR HGB CONC 28 g/dL (32-36); MEAN CORPUSCULAR VOLUME 72 fL (80-99); MEAN PLATELET VOLUME 8.7 fL (9.0-12.2); MONOCYTES # (AUTO) 0.7 10^3/uL (0.0-1.0); MONOCYTES % (AUTO) 9 % (0-12); NEUTROPHILS # (AUTO) 5.5 10^3/uL (1.8-7.8); NEUTROPHILS % (AUTO) 68 % (42-75); PLATELET COUNT 322 10^3/uL (130-400); WHITE BLOOD COUNT 8.1 10^3/uL (4.3-11.0)
[2023-06-30 11:35] LABS: ALBUMIN 3.8 GM/DL (3.2-4.5); POTASSIUM 3.9 MMOL/L (3.6-5.0)
[2023-06-30 11:36] LABS: CALCIUM 8.6 MG/DL (8.5-10.1)
[2023-06-30 11:37] LABS: TOTAL PROTEIN 6.5 GM/DL (6.4-8.2)
[2023-06-30 11:39] LABS: BILIRUBIN,TOTAL 0.6 MG/DL (0.1-1.0)
[2023-06-30 11:41] LABS: CREATININE SERUM 1.84 MG/DL (0.60-1.30)
[2023-06-30 11:44] LABS: MAGNESIUM 1.5 MG/DL (1.6-2.4)
[2023-06-30] MEDS ORDERED: MAGNESIUM 2 GM/50 ML IVPB 50 ML IV ONE (14:15)
[2023-06-30 14:25] VITALS: BP_SYST 110; BP_SYST 116; BP_SYST 117; BP_DIAS 61; BP_DIAS 71; BP_DIAS 83
[2023-06-30] MEDS ORDERED: ONDANSETRON INJECTION 4 MG/2 ML (SDV) IV PRN (15:15)
[2023-06-30] MEDS ORDERED: ANTACID SUSPENSION 30 ML UDC PO PRN (15:15)
[2023-06-30] MEDS ORDERED: ACETAMINOPHEN 325 MG TABLET PO PRN (15:15)
[2023-06-30] MEDS ORDERED: MELATONIN 3 MG TABLET PO PRN (15:15)
[2023-06-30] MEDS ORDERED: PATIENT MAY USE OWN MEDS, ALL PO SCH (15:15)
[2023-06-30] MEDS ORDERED: MILK OF MAGNESIA 400 MG/5 ML 30 ML UDC PO PRN (15:15)
[2023-06-30] MEDS: NS IV 1000 ML 1,000 ML IV SCH (15:35)
--- NOTE | 2023-06-30 15:56 | Physical Therapy Evaluation ---
PT Evaluation-General Medical Diagnosis Admission Date Jun 30, 2023 at 14:44 Medical Diagnosis: MAURICIO, Dehydration Onset Date: Jun 30, 2023 Therapy Diagnosis Therapy Diagnosis: Gait deficit. Height/Weight Height (Feet): 5 Height (Inches): 9.00 Weight (Pounds): 240 Weight (Ounces): 4.0 Precautions Precautions/Isolations: Fall Prevention, Standard Precautions Weight Bear Status Right Lower Extremity: Right Full Weight Bearing Left Lower Extremity: Left Full Weight Bearing Referral Physician: Dr. Elmore Reason for Referral: Evaluation/Treatment Medical History Reviewed History: Yes Social History Home: Single Level Current Living Status: Spouse Entry Into Home: Stairs Without Railing PT Steps Into Home: 2 Prior Prior Level of Function SCALE: Activities may be completed with or without assistive devices. 9-Mtdxxuqloq-ujpbuvj completes the activity by him/herself with no assistance from a helper. 5-Set-up or Clean-up Assistance-helper sets up or cleans up; patient completes activity. [place] assists only prior to or following the activity. 4-Supervision or Touching Assistance-helper provides verbal cues and/or touching/steadying and/or contact guard assistance as patient completes activity. Assistance may be provided throughout the activity or intermittently. 3-Partial/Moderate Assistance-helper does LESS THAN HALF the effort. Dillon lifts, holds or supports trunk or limbs, but provides less than half the effort. 2-Substantial/Maximal Assistance-helper does MORE THAN HALF the effort. [place] lifts or holds trunk or limbs and provides more than half the effort. 1-Wajjeqvfh-afhkym does ALL the effort. Patient does none of the effort to complete the activity. Or, the assistance of 2 or more helpers is required for the patient to complete the activity. If activity was not attempted, code reason: 7-Patient Refused. 9-Not Applicable-not attempted and the patient did not perform the activity before the current illness, exacerbation or injury. 10-Not Attempted due to Environmental Limitations-(lack of equipment, weather restraints, etc.). 88-Not Attempted due to Medical Conditions or Safety Concerns. Bed Mobility: 6 Transfers (B,C,W/C): 6 Gait: 6 Stairs: 6 Indoor Mobility (Ambulation): Independent Stairs: Independent Prior Device Use: Cane prn PT Evaluation-Current Subjective Patient lying supine in bed upon PT arrival, agreeable to treatment. Patient rates pain at 0/10 currently. Objective Patient Orientation: Person, Place, Time, Situation Attachments: IV ROM/Strength ROM Lower Extremities WFLs BLEs all planes Strength Lower Extremities 3+/5 BLEs all planes Sensory Vision: Functional Hearing: Functional Sensation Right Lower Extremit: Intact Sensation Left Lower Extremity: Intact Transfers Roll Left to Right (QC): 4 Sit to Lying (QC): 4 Lying to Sitting/Side of Bed(Q: 4 Sit to Stand (QC): 4 Chair/Srq-vr-Olkdq Xfer(QC): 3 Gait Does the Patient Walk?: Yes Mode of Locomotion: Walk Anticipated Mode of Locomotion: Walk Walk 10 feet (QC): 3 Walk 50 ft with 2 Turns(QC): 3 Distance: 120' Gait Assistive Device: FWW Balance Sitting Static: Good Sitting Dynamic: Good Standing Static: Fair Standing Dynamic: Fair Assessment/Needs Patient performs all bed mobility with SBA, transfers with min a. During gait, he loses balance due to right knee buckling per patient report, with min A from PT to avoid falling. Patient ambulates 100' with FWW, with min A and verbal cues for safety, progression, balance and conservation of energy. Patient in bed post treatment with all needs met, nurse in the room and call light in reach. 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 Residential Goals PT Residential Goals Time Frame: Aug 09, 2023 Roll Left & Right (QC): 6 Sit to Lying (QC): 6 Lying-Sitting on Side/Bed(QC): 6 Sit to Stand (QC): 6 Chair/Ahn-wm-Tsroa Xfer(QC): 6 Does the Patient Walk: Yes Walk 10 feet (QC): 6 Walk 50ft with 2 Turns (QC): 6 Walk 150 ft (QC): 4 1 Step (curb) (QC): 4 4 Steps (QC): 4 PT Plan Problem List Problem List: Activity Tolerance, Functional Strength, Safety, Balance, Gait, Transfer, Bed Mobility, ROM Treatment/Plan Treatment Plan: Continue Plan of Care Treatment Plan: Bed Mobility, Education, Functional Activity Karl, Functional Strength, Group Therapy, Gait, Safety, Therapeutic Exercise, Transfers Treatment Duration: Aug 09, 2023 Frequency: 6 times per week Estimated Hrs Per Day: .25 hour per day Patient and/or Family Agrees t: Yes Safety Risks/Education Patient Education: Gait Training, Transfer Techniques Time Time In: 1530 Time Out: 1548 DATE: Jun 30, 2023 Total Billed Treatment Time: 18 Total Billed Treatment Visit, ZAN BATRES PT Jun 30, 2023 15:56
[2023-06-30 19:55] VITALS: BP 115/78
[2023-06-30 23:42] VITALS: BP 121/61
[2023-07-01] MEDS: NS IV 1000 ML 1,000 ML IV SCH ×3 (02:16→11:36)
[2023-07-01 03:43] VITALS: BP 105/67
[2023-07-01 05:15] LABS: HEMATOCRIT 32 % (40-54); HEMOGLOBIN 8.9 g/dL (13.3-17.7); MEAN CORPUSCULAR HEMOGLOBIN 20 pg (25-34); MEAN CORPUSCULAR HGB CONC 28 g/dL (32-36); MEAN CORPUSCULAR VOLUME 71 fL (80-99); PLATELET COUNT 316 10^3/uL (130-400); WHITE BLOOD COUNT 6.3 10^3/uL (4.3-11.0)
[2023-07-01 05:49] LABS: CALCIUM 8.3 MG/DL (8.5-10.1); CREATININE SERUM 1.16 MG/DL (0.60-1.30)
[2023-07-01 08:18] VITALS: BP 124/78
--- NOTE | 2023-07-01 09:10 | Physical Therapy Daily Note ---
PT Daily Note-Current Subjective Patient has no c/o on this date. Agrees to PT. Pain Section J - Health Conditions 1. Rarely or not at all 2. Occasionally 3. Frequently 4. Almost constantly 8. Unable to answer Pain Effect on Sleep: 1 Pain Interference with Therapy: 1 Pain Interference w/Day-to-Day: 1 Mental Status Patient Orientation: Normal For Age Attachments: IV Transfers SCALE: Activities may be completed with or without assistive devices. 7-Bdcztkfnes-grlajcg completes the activity by him/herself with no assistance from a helper. 5-Set-up or Clean-up Assistance-helper sets up or cleans up; patient completes activity. [place] assists only prior to or following the activity. 4-Supervision or Touching Assistance-helper provides verbal cues and/or touching/steadying and/or contact guard assistance as patient completes activity. Assistance may be provided throughout the activity or intermittently. 3-Partial/Moderate Assistance-helper does LESS THAN HALF the effort. [place] lifts, holds or supports trunk or limbs, but provides less than half the effort. 2-Substantial/Maximal Assistance-helper does MORE THAN HALF the effort. [place] lifts or holds trunk or limbs and provides more than half the effort. 2-Nzdesfxpr-uhfaha does ALL the effort. Patient does none of the effort to complete the activity. Or, the assistance of 2 or more helpers is required for the patient to complete the activity. If activity was not attempted, code reason: 7-Patient Refused. 9-Not Applicable-not attempted and the patient did not perform the activity before the current illness, exacerbation or injury. 10-Not Attempted due to Environmental Limitations-(lack of equipment, weather restraints, etc.). 88-Not Attempted due to Medical Conditions or Safety Concerns. Lying to Sitting/Side of Bed(Q: 6 Sit to Stand (QC): 4 Chair/Gzi-di-Npujq Xfer(QC): 4 Weight Bearing Right Lower Extremity: Right Full Weight Bearing Left Lower Extremity: Left Full Weight Bearing Gait Training Distance: 400' Walk 10 feet (QC): 4 Walk 50 ft with 2 Turns(QC): 4 Walk 150 ft (QC): 4 Gait Assistive Device: FWW SBA for safety/safe and functional gait sequence Assessment Patient much improved on this date and is up in recliner with needs met. Continue to increase activity as tolerated by patient. 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 PT Nursing Home Goals Time Frame: Aug 09, 2023 Roll Left & Right (QC): 6 Sit to Lying (QC): 6 Lying-Sitting on Side/Bed(QC): 6 Sit to Stand (QC): 6 Chair/Zbu-cq-Vfqzm Xfer(QC): 6 Does the Patient Walk: Yes Walk 10 feet (QC): 6 Walk 50ft with 2 Turns (QC): 6 Walk 150 ft (QC): 4 1 Step (curb) (QC): 4 4 Steps (QC): 4 PT Plan Treatment/Plan Treatment Plan: Continue Plan of Care Treatment Plan: Bed Mobility, Education, Functional Activity Karl, Functional Strength, Group Therapy, Gait, Safety, Therapeutic Exercise, Transfers Treatment Duration: Aug 09, 2023 Frequency: 6 times per week Estimated Hrs Per Day: .25 hour per day Patient and/or Family Agrees t: Yes Time Time In: 800 Time Out: 811 DATE: Jul 01, 2023 Total Billed Treatment Time: 11 Total Billed Treatment 1 visit FA 11 min NOELLE LEARY PT Jul 01, 2023 09:10
[2023-07-01] MEDS ORDERED: TRAZ300T3 PO (11:06)
[2023-07-01] MEDS ORDERED: HYDR25TA4 PO (11:06)
[2023-07-01] MEDS ORDERED: CYCL10TA25 PO (11:06)
[2023-07-01] MEDS ORDERED: LOSA25TA41 PO (11:06)
[2023-07-01] MEDS ORDERED: MULT-1136 PO (11:06)
[2023-07-01] MEDS ORDERED: DEXL60CA6 PO (11:06)
[2023-07-01 11:24] VITALS: BP 123/77
--- NOTE | 2023-07-01 12:06 | Discharge Inst-Simple/Standard ---
Discharge Inst-Standard Patient Instructions/Follow Up Plan of Care/Instructions/FU: Please continue to take your medications as written. Please follow up with your primary care doctor to follow up this hospital stay. Activity as Tolerated: Yes Discharge Diet: Eat Small Frequent Meals Return to The Hospital For: Chest pain, shortness of breath, fever, weakness, if you feel you are getting worse. SATISH CHAPA MD Jul 01, 2023 12:06
--- NOTE | 2023-07-01 12:10 | D/C HH Face to Face Order ---
D/C Face to Face Orders Instructions for Patient Via [facility], Patient Instructions/FollowUp: Please continue to take your medications as written. Please follow up with your primary care doctor to follow up this hospital stay. Physician to follow Patient: Dr Mathews Discharge Diet for Home: Eat Small Frequent Meals Patient Data-Allergies,Ht & Wt Patient Allergies: Coded Allergies: No Known Drug Allergies (Unverified , 05/01/17) Height (Feet): 5 Height (Inches): 9.00 Weight (Pounds): 240 Weight (Ounces): 4.0 Home Health Need/Face to Face Date of Face to Face: Jul 01, 2023 Clinical Findings: Generalized weakness and fatigue I have seen Pt hscy-ou-fijt: Yes Discharged To: Home Diagnosis/Conditions: Dehydration, recent gastric sleeve Patient is Homebound due to: Bijal fall risk due to instabilty, Muscle weakness Homebound Status Due to the above stated illness, injury or surgical procedure (medical condition or diagnosis) and associated clinical findings, the patient is homebound because of his/her inability to leave home except with aid of a supportive device and/or person AND leaving the home requires a considerable and taxing effort or is medically contraindicated. Pt req the following assistanc: Aid of another person, Walker Home Health Nursing Orders Home Health Services Order: Nursing Services, Fence Erector-Evaluate & Treat, Physical Therapy-Evaluate & Treat Home Health Infusion Therapy Line Start Date: Jun 30, 2023 Therapy Orders Therapy Orders: OT (must have SN or PT order), Physical Therapy Therapy Specific Orders: Eval assistive deivces, Teach enviro modifications/safety, Gait training, Increase strength/endurance Certify Stmt I certify that this patient is under my care and that I, a nurse practitioner or a physician; a assistant producer working with me, had a face to face encounter that - meets the physician face to face encounter requirements with this patient as dated. SATISH CHAPA MD Jul 01, 2023 12:10
--- NOTE | 2023-07-01 12:20 | Short Stay Summary-Hospitalist ---
History of Present Illness HPI/Chief Complaint Pt is a 68-year-old male who had a recent gastric sleeve on May 15 who presented to the emergency department after a fall. He reports he had gastric sleeve done and has been eating more than he should and been vomiting quite a bit since then. Yesterday he was walking and his leg gave out on him which she believes is due to his sciatic issues. He was found to have an elevated creatinine and was admitted for observation. This morning he reports feeling much better. He has already been up and walked 400 feet with physical therapy. He is adjusted his diet today as well and is eating smaller volumes and has not had any issues with regurgitation. His creatinine has returned to baseline. He is hopeful for discharge home and is requesting home health. Source: patient Date Seen 07/01/23 Time Seen by a Provider: 11:15 Attending Physician Stevo Mathews MD PCP Admitting Physician: Satish Elmore MD Attending Physician: Satish Elmore MD Referring Physician Date of Admission Jun 30, 2023 at 14:44 Home Medications & Allergies Home Medications Reviewed patient Home Medication Reconciliation performed by pharmacy medication reconciliations environmental engineering technician and/or nursing. Patients Allergies have been reviewed. Allergies Allergies Coded Allergies No Known Drug Allergies (Unverified05/01/17) Past Khkivap-Izzzvw-Hiqmnq Hx Patient Social History Marrital Status: Tobacco Use?: No Smoking Status: Former Smoker Substance use?: No Alcohol Use?: Yes Alcohol type: Wine Alcohol Frequency: Once in a while Pt feels they are or have been: No Immunizations Up To Date First/Initial COVID19 Vaccinat: DENIES Second COVID19 Vaccination Jefry: DENIES Tetanus Booster (TDap): Unknown Hepatitis A: No Hepatitis B: No Date of Pneumonia Vaccine: March 11, 2016 Seasonal Allergies Seasonal Allergies: No Current Status Advance Directives: No Communicates: Verbally Primary Language: Cypriot Preferred Spoken Language: Cypriot Sensory deficits: Vision impairment Implanted or Applied Medical D: None Past Medical History Surgeries: Abdominal, Gallbladder, Tonsillectomy Asthma, Sleep Apnea, COPD, Emphysema Currently Using CPAP: Yes Currently Using BIPAP: No High Cholesterol, Hypertension Neuropathy Sexually Transmitted Disease: No HIV/AIDS: No Abdominal Hernia, Gastroesophageal Reflux, Diverticulosis, Hepatitis, Polyps, Hiatal Hernia, Gall Bladder Disease, Irritable Bowel Degenerate Disk Disease, Arthritis, Chronic Back Pain, Spasms Diabetes, 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 4.0oz. 108.498792wh; 43.25 BMI Method:Stated General Appearance: No Apparent Distress, Chronically ill, Obese Respiratory: Lungs Clear, No Respiratory Distress Cardiovascular: Regular Rate, Rhythm, No Murmur Gastrointestinal: Normal Bowel Sounds, Soft Neurologic/Psychiatric: Alert, Oriented x3 Results Results/Procedures Labs Laboratory Tests 06/30/23 11:20 07/01/23 05:03 Patient resulted labs reviewed. Short Stay Diagnosis Discharge Diagnosis-Short Stay Admission Diagnosis MAURICIO Final Discharge Diagnosis MAURICIO Conclusion Plan MAURICIO dehydration recent gastric sleeve Creatinine back to baseline Has been eating large volumes and then vomiting- discussed changes to volume of food with his surgery Walked 400 ft with PT and did well with walker Home health ordered DC home if able to tolerate oral intake DVT ppx: Ambulation SATISH ELMORE MD Jul 01, 2023 12:20
[2023-07-01 16:32] VITALS: BP 139/67
== END 2023-07-01 17:45 | disposition home or self-care (01) ==
LOC: EDUNIT# 10:17 → ER 10:20 → UNDOADMOB 14:44 → 4TH 14:44 → UNDODISOB 07-01 17:45
PROVIDERS: ADMIT Family Medicine; ATTEND Family Medicine
DX: N17.9 Acute kidney failure, unspecified (principal); E86.0 Dehydration; E86.1 Hypovolemia; I95.89 Other hypotension; I95.9 Hypotension, unspecified; Z98.84 Bariatric surgery status; Z87.891 Personal history of nicotine dependence; Z28.310 Unvaccinated for COVID-19
CPT/HCPCS: 80048; 80053; 82947; 83735; 85025; 85027; 93005; 93041; 96361; 96375; 97162; 97530; 99284; G0378; 36415